=== PATIENT | male | born 1940 | race Caucasian/White ===

== ENCOUNTER 2020-03-12 13:36 | Outpatient (REF) | payer MEDICARE, OTHER, SELFPAY ==
--- NOTE | 2020-03-12 | MR_ITS ---
EXAMINATION: MR LUMBAR SPINE WITHOUT CONTRAST CLINICAL INFORMATION: Spinal stenosis. COMPARISON: MR scan of the lumbar spine 08/30/2017. TECHNIQUE: MRI of the lumbar spine was obtained using routine sequences without contrast. FINDINGS: VERTEBRAL BODIES AND PARASPINAL STRUCTURES: The study redemonstrates the mild levoscoliosis in the lower lumbar spine. There is a grade 1 anterolisthesis of L5 on S1, which appears similar compared to prior imaging. The study also redemonstrates the retrolistheses of L2 on L3, L3 on L4 and L4 on L5. There is multilevel narrowing of intervertebral disc height, most severe in the concavity of the scoliosis on the right at L2-L3, L3-L4 and L4-L5. There are multilevel degenerative endplate contour changes. On the current study, there is now relatively extensive edematous signal in the bodies of L1 and L2 centrally and toward the left, new compared to prior imaging. There has been marked interval decrease in the intervertebral disc height at this level. There is no discrete paravertebral fluid collection, but there is increased signal within the left psoas muscle, consistent with inflammatory changes. The edematous endplate signal changes previously noted at L3-L4 have resolved. Vertebral body heights are maintained. No fractures are demonstrated. Marrow signal is slightly heterogenous. There is a right-sided renal cyst. There are multiple retroperitoneal lymph nodes bilaterally. CONUS MEDULLARIS AND CAUDA EQUINA: Normal, terminating at the level of T12-L1. The lower thoracic spinal cord appears normal. The cauda equina nerve roots and filum terminale appear normal. SPINAL LEVELS: L1-L2: There is moderate bilateral facet arthropathy. There is a small posterior disc protrusion extending into the left neural foramen now with impingement on the exiting left L1 nerve root, which is a new finding compared to prior imaging. There is narrowing of the bilateral subarticular recesses, and there is mild central stenosis. L2-L3: There is moderate bilateral facet arthropathy. There is a posterior disc protrusion extending into the neural foramina bilaterally, more prominent on the left and there is impingement on the exiting left L2 nerve root, similar compared to prior imaging. There is narrowing of the bilateral subarticular recesses with impingement on the traversing L3 nerve roots bilaterally. There is moderate central stenosis. L3-L4: There is severe bilateral facet arthropathy with ligamenta flava hypertrophy and a left facet joint effusion. There is a posterior disc protrusion extending into the neural foramina bilaterally, markedly more prominent on the right with mass effect on the exiting right L3 nerve root. There is also narrowing of the right subarticular recess with impingement on the traversing right L4 nerve root. There is moderate central stenosis. L4-L5: There is moderate bilateral facet arthropathy. There is a posterior disc protrusion extending into the right greater than left neural foramina. There is marked narrowing of the right neural foramen with impingement on the exiting right L4 nerve root. There is narrowing of the left greater than right subarticular recesses with impingement on the traversing L5 nerve roots. There is moderate central stenosis. L5-S1: There is severe bilateral facet arthropathy, which is worse on the right. There is unroofing of the disc as a result of the anterolisthesis. There are bilateral foraminal disc protrusions with impingement on the exiting L5 nerve roots bilaterally, slightly more prominently on the right compared to prior imaging. There is marked narrowing of the subarticular recesses, and there is moderate to severe central stenosis. MR/MR lumbar spine wo con IMPRESSION: 1. On the current study there are extensive edematous signal changes in the bodies of L1 and L2 with degenerative endplate contour changes. Edematous signal is noted in the left psoas muscle at this level. The previously demonstrated edematous signal at L3-L4 has resolved. 2. 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 There is a levoscoliosis. There is severe narrowing of the right neural foramina at L3-L4, L4-L5 and L5-S1 with impingement on the exiting L3, L4 and L5 nerve roots at these levels. In addition, there is marked narrowing of the left neural foramen at L5-S1 with impingement on the exiting left L5 nerve root. 3. At L1-L2 there is a small posterior disc protrusion extending into the left neural foramen, with impingement on the exiting left L1 nerve root which is new. There is mild central stenosis. 4. There is multilevel facet arthropathy, and there is central stenosis at L3-L4, L4-L5 and L5-S1.
== END 2020-03-12 13:37 | disposition home or self-care (01) ==
LOC: HO.MRI 13:36
PROVIDERS: PCP Internal Medicine; Visit Provider Internal Medicine
DX: M48.07 Spinal stenosis, lumbosacral region (principal)
CPT/HCPCS: 72148

== ENCOUNTER → 2020-07-24 08:25 | Outpatient (BNV) | payer MEDICARE, OTHER, SELFPAY | PROVIDERS: PCP Internal Medicine; Visit Provider Internal Medicine | DX: C85.80 Other specified types of non-Hodgkin lymphoma, unspecified site (principal); D63.1 Anemia in chronic kidney disease | CPT/HCPCS: 99213; 99214; G2211 ==

== ENCOUNTER 2020-10-09 11:47 | Outpatient (REF) | payer MEDICARE, OTHER, SELFPAY ==
[2020-10-09 13:52] LABS: Creatinine Urine 92.36 mg/dL; Total Protein Urine Random 157 mg/dL (<12)
[2020-10-09 13:58] LABS: Glucose Urine UA NEG (NEG); Leukocyte Esterase Urine NEG (NEG); Nitrite Urine NEG (NEG); Specific Gravity - Urine 1.015 (1.005-1.025); Urine Blood NEG (NEG); Urine Ketones NEG (NEG); Urine Protein 2+ MG/DL (NEG-TRACE)
[2020-10-09 14:01] LABS: Appearance Urine CLEAR; Color Urine YELLOW
[2020-10-09 14:02] LABS: Alanine Aminotransferase 16 U/L (0-40); Albumin Level 3.7 g/dL (3.5-5.0); Alkaline Phosphatase 79 U/L (39-117); Anion Gap 16 (12-20); Aspartate Amino Transferase 16 U/L (5-37); Bilirubin Total 0.7 mg/dL (0.0-1.0); Blood Urea Nitrogen 21 mg/dL (9-16); Calcium 9.4 mg/dL (8.4-10.2); Carbon Dioxide 24 mmol/L (22-29); Chloride 99 mmol/L (96-108); Cholesterol 196 mg/dL; Estimated Glomerular Filt Rate 60; Glucose Random 87 mg/dL (60-115); HDL Cholesterol 63 mg/dL; LDL Cholesterol Calculated 114 mg/dl; Potassium 5.5 mmol/L (3.3-5.1); Sodium 133 mmol/L (135-145); Total Protein 6.7 g/dL (6.5-8.0); Triglycerides 97 mg/dL
[2020-10-09 14:03] LABS: Albumin Level 3.8 g/dL (3.5-5.0); Anion Gap 15 (12-20); Blood Urea Nitrogen 20 mg/dL (9-16); Calcium 9.4 mg/dL (8.4-10.2); Carbon Dioxide 24 mmol/L (22-29); Chloride 99 mmol/L (96-108); Estimated Glomerular Filt Rate > 60; Potassium 5.3 mmol/L (3.3-5.1); Sodium 133 mmol/L (135-145)
[2020-10-09 14:17] LABS: RBC Urine 0 /HPF (0); WBC Urine 0 /HPF (0-4)
[2020-10-09 14:59] LABS: Renal w Reflex Lab Use Only Order verified
[2020-10-16 15:42] LABS: IgA 230 mg/dL (70-320); IgG 889 mg/dL (600-1540); IgM 738 mg/dL (50-300)
== END 2020-10-09 11:48 | disposition home or self-care (01) ==
LOC: HO.10HDL 11:47
PROVIDERS: PCP Internal Medicine; Visit Provider Internal Medicine Nephrology
DX: I13.0 Hypertensive heart and chronic kidney disease with heart failure and stage 1 through stage 4 chronic kidney disease, or unspecified chronic kidney disease (principal); N18.1 Chronic kidney disease, stage 1; I50.9 Heart failure, unspecified; R80.9 Proteinuria, unspecified; E87.1 Hypo-osmolality and hyponatremia; E78.00 Pure hypercholesterolemia, unspecified
CPT/HCPCS: 36415; 80051; 80053; 80061; 81001; 81003; 82040; 82310; 82565; 82784; 84100; 84156; 84520; 86334; 86335

== ENCOUNTER 2020-10-22 08:32 | Outpatient (REF) | payer MEDICARE, OTHER, SELFPAY ==
[2020-10-22 09:46] LABS: Potassium 5.3 mmol/L (3.3-5.1)
== END 2020-10-22 08:33 | disposition home or self-care (01) ==
LOC: HO.10HDL 08:32
PROVIDERS: Visit Provider Internal Medicine
DX: E87.5 Hyperkalemia (principal)
CPT/HCPCS: 36415; 84132

== ENCOUNTER 2020-11-16 02:45 | Inpatient (IN) | payer MEDICARE, OTHER, SELFPAY ==
[2020-11-16] VITALS (10 sets, daily range): BP systolic 137–162; BP diastolic 63–130; PULSE 67–115; RESP 17–28; TEMP 36.3–37.1; O2SAT 91–100; BMI 22.0
--- NOTE | ~2020-11-16 | XR_ITS ---
EXAMINATION: XR CHEST CLINICAL INFORMATION: Shortness of breath COMPARISON: 11/20/2020 TECHNIQUE: Frontal view of the chest was obtained. FINDINGS: There is persistent bibasilar opacity, right greater than left; appearance on the left has slightly worsened from prior. Small right and trace pleural effusion noted. No evidence of pneumothorax. The cardiomediastinal silhouette is stable. No acute osseous findings are seen. XR/XR chest 1V IMPRESSION: Bibasilar opacities with associated small pleural effusions; appearance on the left has slightly worsened from prior.
--- NOTE | ~2020-11-16 | XR_ITS ---
EXAMINATION: XR CHEST CLINICAL INFORMATION: Shortness of breath COMPARISON: 11/14/2007. Abdominal CT from today. TECHNIQUE: Frontal view of the chest was obtained. FINDINGS: Cardiac leads overlie the chest. Elevated right hemidiaphragm. There is no new opacity in the right middle lobe as seen on CT. No edema or effusion. No pneumothorax. The cardiomediastinal silhouette is normal in size with a calcified aorta. Dilated bowel noted in the upper abdomen. XR/XR chest 1V IMPRESSION: Known right middle lobe airspace opacity. This could represent atelectasis or pneumonia, better seen on the prior CT.
--- NOTE | ~2020-11-16 | XR_ITS ---
EXAMINATION: XR chest 1V CLINICAL INFORMATION: Reason for Exam check NGT placement COMPARISON: Prior chest x-ray same day earlier TECHNIQUE: XR chest 1V Tubes and lines: Gastric tube passing below the diaphragm into the stomach Lungs and pleura: Opacification at right lung base likely infiltrate and/or atelectasis on resolved. Heart and mediastinum: The mediastinum is within normal limits.. Bones/soft tissue: Dilated bowel loops below the diaphragm unchanged. XR/XR chest 1V IMPRESSION: Gastric tube has been adjusted now properly passing below the diaphragm into the stomach. Exam otherwise unchanged, infiltrates/atelectasis at right lung base. Dilated bowel loops under the diaphragm.
--- NOTE | ~2020-11-16 | CT_ITS ---
EXAMINATION: CT ABDOMEN AND PELVIS WITHOUT CONTRAST CLINICAL INFORMATION: Follow-up small bowel obstruction COMPARISON: Previous CT of the abdomen and pelvis 11/16/2020 TECHNIQUE: Multidetector volumetric imaging was performed from the superior aspect of the liver through the pubic symphysis. Sagittal and coronal reformatted images were obtained on the technologist's workstation. This CT examination was performed using dose optimization techniques as appropriate, variously including the following: *Automated exposure control *Adjustment of mA and/or kV according to patient size (this includes techniques or standardized protocols for targeted exams where dose is matched to indication/reason for exam; i.e. extremities or head) *Use of iterative reconstruction technique DLP: 512 mGy-cm FINDINGS: LUNG BASES: There is right middle and right lower lobe dense consolidation with air bronchograms probably representing pneumonia. There is a small right pleural effusion. This is similar to previous exam. The left lung base is clear. The heart is enlarged. There is coronary artery calcification. LIVER, GALLBLADDER, AND BILIARY TREE: The liver is normal in size, shape, and attenuation. No focal hepatic lesion or biliary ductal dilatation is present. The gallbladder is unremarkable with no evidence of radiopaque gallstones, gallbladder wall thickening, or obvious pericholecystic inflammatory changes. PANCREAS: Unremarkable. SPLEEN: Unremarkable. ADRENAL GLANDS: Unremarkable. KIDNEYS AND URETERS: There is bilateral renal cysts that are unchanged. No workup is indicated. BLADDER: Not optimally distended. The bladder wall may be thickened. GASTROINTESTINAL TRACT: There is still marked abnormal circumferential wall thickening of the distal ileum and cecum. Again, appearance is concerning for possible lymphoma. The more proximal small bowel is still appears fluid-filled and dilated but less so than seen on 11/16/2020 exam. There is a new nasogastric tube seen in the stomach. ABDOMINAL WALL: There is a small umbilical hernia containing fat. There is a small subxiphoid 4. Xiphoid hernia containing fat. LYMPH NODES: There is a right lower quadrant pericolic and mesenteric lymph nodes that are upper normal in size measuring 1 cm. There are retroperitoneal lymph nodes in the abdomen and pelvis that are upper normal in size during 1 cm. There is no ascites. VASCULAR: There is evidence of severe atherosclerotic disease. PELVIC VISCERA: The prostate gland is enlarged and measures 4 x 5 cm in AP and transverse dimension. OSSEOUS STRUCTURES: There is scoliosis of the spine and degenerative changes. There are degenerative changes at the hip joints. CT/CT abdomen pelvis wo con IMPRESSION: Persistent circumferential wall thickening of the distal ileum and proximal cecum again concerning for a mass, particularly lymphoma. There are dilated fluid-filled loops of small bowel proximal to this region. Small bowel appears slightly less dilated than seen on 11/18/2020 exam. New nasogastric tube in the stomach. Enlarged pericolic and small bowel mesentery and retroperitoneal lymph nodes that appear unchanged. Large right middle and right lower lobe pneumonia and small right pleural effusion similar to previous exams. Bilateral renal cysts.
--- NOTE | ~2020-11-16 | CT_ITS ---
EXAMINATION: CT ABDOMEN AND PELVIS WITHOUT CONTRAST CLINICAL INFORMATION: Diffuse abdominal pain. Nausea and vomiting. COMPARISON: 09/14/2017 TECHNIQUE: Multidetector volumetric imaging was performed from the superior aspect of the liver through the pubic symphysis. Sagittal and coronal reformatted images were obtained on the technologist's workstation. This CT examination was performed using dose optimization techniques as appropriate, variously including the following: *Automated exposure control *Adjustment of mA and/or kV according to patient size (this includes techniques or standardized protocols for targeted exams where dose is matched to indication/reason for exam; i.e. extremities or head) *Use of iterative reconstruction technique DLP: 464 mGy-cm FINDINGS: LUNG BASES: Multifocal consolidative appearance in the right middle lobe. Septal thickening. No pleural effusion. Coronary artery calcifications. LIVER, GALLBLADDER, AND BILIARY TREE: The liver is normal in size, shape, and attenuation. No focal hepatic lesion or biliary ductal dilatation is present. The gallbladder is unremarkable with no evidence of radiopaque gallstones, gallbladder wall thickening, or obvious pericholecystic inflammatory changes. PANCREAS: Unremarkable. SPLEEN: Unremarkable. ADRENAL GLANDS: Unremarkable. KIDNEYS AND URETERS: The kidneys are normal in size, shape, and attenuation. No hydronephrosis, hydroureter, or calculi seen. No perinephric stranding. Simple renal cysts are seen in both kidneys. No follow-up imaging recommended. BLADDER: Unremarkable. GASTROINTESTINAL TRACT: The stomach is unremarkable. The proximal small bowel is decompressed, with eventual appearance of dilated fluid-filled small bowel with air-fluid levels. This remains to the level of the terminal ileum where there is prominent wall thickening focally in the region of the terminal ileum/ileocecal valve. There is circumferential at this level with more irregular appearing more proximally in the distal ileum. Adjacent prominent lymph nodes are noted. Of note, on the study from 2018, there was significant wall thickening also present at that time. Scattered colonic diverticulosis without diverticulitis. There is minimal gas and stool throughout the colon. ABDOMINAL WALL: No significant hernia is appreciated. LYMPH NODES: Multiple somewhat prominent retroperitoneal lymph nodes are again seen, similar to prior. Prominent nodes in the right lower quadrant are increased from prior. Prominent nodes along the iliac chains also again noted. VASCULAR: Normal caliber aorta with moderate atherosclerotic calcification throughout. PELVIC VISCERA: Prominent prostate. The seminal vesicles are unremarkable. Trace pelvic fluid. OSSEOUS STRUCTURES: No acute or suspicious osseous abnormality. Degenerative changes throughout the spine. CT/CT abdomen pelvis wo con IMPRESSION: Dilated small bowel with air-fluid levels, extending to the level of the terminal ileum. There is prominent wall thickening again noted, as seen on previous imaging. Neoplasm can have this appearance, particularly lymphoma. This is likely partially obstructive given the overall appearance on the study. Prominent adjacent right lower quadrant lymph nodes are seen, increased from prior. Persistent somewhat prominent retroperitoneal lymph nodes. Right middle lobe consolidation. This is concerning for pneumonia. Aspiration possible.
--- NOTE | ~2020-11-16 | XR_ITS ---
EXAMINATION: XR CHEST CLINICAL INFORMATION: NG tube placement COMPARISON: Abdomen CT and prior chest radiograph from 11/16/2020. TECHNIQUE: Frontal view of the chest was obtained. FINDINGS: Lungs are hypoinflated and right diaphragm mildly elevated. There is airspace disease of the right middle lobe. No evidence of pleural effusion or pneumothorax. The NG tube courses to the right of midline and projects over the right lower lobe. No pneumomediastinum. Cardiac silhouette is normal in size. The visualized bones are intact. The dilated small bowel loops are seen within the abdomen. No pneumoperitoneum. XR/XR chest 1V IMPRESSION: * The tip of the NG tube overlies the right lower lobe. Recommend repositioning. * There is consolidation of the right middle lobe. * Persistently dilated small bowel loops are observed within the abdomen. The critical test result was discussed with Dr. Gayatri Thompson at 12:18 PM on 11/16/2020 and it was ascertained that the content and the importance of the findings was understood at the time of the direct communication.
--- NOTE | ~2020-11-16 | XR_ITS ---
EXAMINATION: XR CHEST CLINICAL INFORMATION: Follow-up aspiration. COMPARISON: Chest x-ray 11/16/2020 TECHNIQUE: Frontal view of the chest was obtained. FINDINGS: There is elevation of right hemidiaphragm with underlying atelectasis. Visualized right upper lobe and the left lung remains expanded and clear. Heart size and pulmonary vascularity is normal. Enteric tube has been removed. No gross bony abnormality. XR/XR chest 1V IMPRESSION: Enteric tube has been removed. There is elevated right hemidiaphragm with underlying atelectasis..
[2020-11-16 03:15] LABS: Hematocrit 37.2 % (42-52); Hemoglobin 12.8 g/dl (14.0-18.0); Mean Corpuscular HGB Conc 34.4 g/dl (31.0-36.0); Mean Corpuscular Hemoglobin 31.6 pg (27.0-33.0); Mean Corpuscular Volume 91.9 fL (80-98); Mean Platelet Volume 9.4 fL (9.4-12.4); Platelet Count 317 X10*3/uL (160-400); Red Blood Count 4.05 X10*6/uL (4.60-5.80); Red Cell Distribution Width 12.8 % (11.0-16.0)
[2020-11-16] MEDS: 0.9 % Sodium Chloride 1,000 ML 999 ML IV ×3 (03:16→06:07)
--- NOTE | 2020-11-16 03:25 | PC.NURSE ---
18G IV access established in right forearm by Karena Cota RN. Labs drawn and sent for analysis, including lactic acid and blood cultures x2 due to meeting sepsis criteria (tachycardia, chills, tachypnea, abdominal pain, vomiting). Abdomen distention noted. Reports last bowel movement was on Thursday November 12, 2020. Abdominal pain acutely worse today. Tried to take imodium yesterday, but it didn't work . Pt reports increased stressors at home due to taking care of his who has had 2 strokes. Pt is otherwise independently and compliant with medications and regular physicals. aware of patient meeting sepsis criteria. to evaluate patient shortly. Will continue to monitor. NS 1 liter infusing at this time.
--- NOTE | 2020-11-16 03:32 | ED_ITS ---
HPI - Abdominal Pain General Chief Complaint: Abdominal Pain Stated Complaint: Abd Pain Time Seen by Provider: 11/16/20 03:24 History of Present Illness HPI narrative: Patient 80-year-old male with no significant past medical history. No abdominal surgery in the past. Presents today with having abdominal pain nausea vomiting. Unable to tolerate good amount of fluid. No bowel movement not passing gas since Wednesday. No coughing or congestion or upper respiratory symptoms. Patient had his coronavirus vaccine back in June. No chest pain or shortness of breath no diaphoresis. No radiations of pain. Patient feels bloated. Related Data Home Medications Medication Instructions Recorded Confirmed atenolol 1 tab PO DAILY 07/24/20 07/24/20 benazepril 1 tab PO DAILY 07/24/20 07/24/20 clonidine HCl 1 tab PO BID 07/24/20 07/24/20 levothyroxine 1 tab PO DAILY 07/24/20 07/24/20 nifedipine 2 tab PO DAILY 07/24/20 07/24/20 omeprazole 1 cap PO DAILY 07/24/20 07/24/20 Allergies Allergy/AdvReac Type Severity Reaction Status Date / Time No Known Allergies Allergy Mild NONE Verified 11/16/20 02:59 Review of Systems Review of Systems Positive nausea, vomiting No BM No chest pain or shortness of breath No diaphoresis Yes all other systems are reviewed and are negative Physical Exam Vital Signs: Vital Signs: Last Vital Signs Temp 98.4 F 11/16/20 02:54 Pulse 103 H 11/16/20 02:54 Resp 28 H 11/16/20 02:54 BP 158/78 H 11/16/20 02:54 Pulse Ox 95 11/16/20 02:54 Body Mass Index 22.0 Appearance: Alert. Oriented X3. No acute distress. Eyes: Pupils equal, round and reactive to light. ENT: Pharynx normal. Neck: Normal inspection. Neck supple. No lymph nodes noted. No crepitus CVS: Normal heart rate and rhythm. Pulses normal. Normal S1 and S2 Respiratory: No respiratory distress. Breath sounds normal. No Wheezing. No rales Abdomen: Distended abdomen. No rigidity. No distention. good BS x4 Skin: Skin warm and dry. Normal skin color. Normal skin turgor. Extremities: No lower extremity edema. Neurovascular intact to all extremities. No Lacerations. No Rash Neuro: Oriented X 3. No motor deficit. No sensory deficit. Moving all extermities. No slurred speech MDM - Abdominal Pain MDM Narrative Medical decision making narrative: Patient's labs showed an extremely low white count. Elevated BUN and creatinine consistent with having pre renal insufficiency. Patient given IV fluid here in the emergency department. Lactate was 1.9 no evidence for severe sepsis. Patient however does have a infiltrate in his right middle lobe. Question pneumonia. We will go ahead and give antibiotics. Will monitor very carefully. CT scan of the abdomen show partial blockage. There is no evidence for a large mass. Although lymphoma cannot be ruled out. Will require further evaluation. Patient's case discussed with the hospitalist team. Will admit patient for further evaluate. Will give additional IV fluids. Chest x-ray is pending to further evaluate the infiltrate. Patient is to be admitted. Currently in guarded condition. Differential Diagnosis Differential diagnosis: Likely abdominal pain Medical Records Attestation: I reviewed the patient's medical records. Lab Data Attestation: I reviewed the patient's lab results. Result diagrams: 11/16/20 03:10 11/16/20 03:10 Labs: Lab Results 11/16/20 11/16/20 11/16/20 Range/Units 03:10 03:10 03:10 WBC 2.0 L (4.8-10.8) X10*3/uL RBC 4.05 L (4.60-5.80) X10*6/uL Hgb 12.8 L (14.0-18.0) g/dl Hct 37.2 L (42-52) % MCV 91.9 (80-98) fL MCH 31.6 (27.0-33.0) pg MCHC 34.4 (31.0-36.0) g/dl RDW 12.8 (11.0-16.0) % Plt Count 317 (160-400) X10*3/uL MPV 9.4 (9.4-12.4) fL Immature Gran % (Auto) Cancelled Neut % (Auto) Cancelled Lymph % (Auto) Cancelled [place] % (Auto) Cancelled Eos % (Auto) Cancelled Baso % (Auto) Cancelled Lymph # (Auto) Cancelled [place] # (Auto) Cancelled Eos # (Auto) Cancelled Baso # (Auto) Cancelled Abs Immat Gran (auto) Cancelled Absolute Neuts (auto) Cancelled Absolute Nucleated RBC 0.000 (0.0-0.012) X10*3/uL Nucleated RBC % (auto) 0.0 (0.0-0.2) /100WBC Neutrophils % (Manual) 45 (45-73) % Band Neutrophils % 44 H (3-5) % Lymphocytes % (Manual) 7 L (20-40) % Atypical Lymphs % (Man) 2 (0-6) % Monocytes % (Manual) 2 (2-11) % Abs Neuts (Manual) 1.8 L (2.2-7.9) X10*3/uL Lymphocytes # (Manual) 0.1 L (0.6-4.8) X10*3/uL Toxic Vacuolation PRESENT Platelet Estimate NORMAL (NORMAL) Large Platelets PRESENT Plt Morphology Comment NOTED RBC Morphology NORMAL Sodium 135 (135-145) mmol/L Potassium 4.5 (3.3-5.1) mmol/L Chloride 102 (96-108) mmol/L Carbon Dioxide 14 L (22-29) mmol/L Anion Gap 24 H (12-20) BUN 77 H D (9-16) mg/dL Creatinine 3.03 H (0.5-1.4) mg/dL Estim Creat Clear Calc 17.5 Estimated GFR 20 Random Glucose 184 H D (60-115) mg/dL Lactic Acid 1.9 (0.5-2.0) mmol/L Calcium 8.9 (8.4-10.2) mg/dL Total Bilirubin 1.2 H (0.0-1.0) mg/dL Direct Bilirubin 0.5 (0.0-0.5) mg/dL AST 19 (5-37) U/L ALT 13 (0-40) U/L Alkaline Phosphatase 80 (39-117) U/L Total Protein 7.1 (6.5-8.0) g/dL Albumin 3.9 (3.5-5.0) g/dL Lipase 11 (8-78) U/L Urine Color Urine Appearance Urine pH (5.0-8.0) Ur Specific [place] (1.005-1.025) Urine Protein (NEG-TRACE) MG/DL Urine Glucose (UA) (NEG) MG/DL Urine Ketones (NEG) MG/DL Urine Blood (NEG) Urine Nitrite (NEG) Ur Leukocyte Esterase (NEG) Urine RBC (0) /HPF Urine WBC (0-4) /HPF Ur Squamous Epith Cells /LPF Ur Renal Epithelial Cell /LPF Urine Bacteria /LPF Hyaline Casts /LPF Urine Mucus /LPF COVID-19 ([facility]) (Negative) COVID-19 Clin Com 11/16/20 11/16/20 Range/Units 03:21 04:31 WBC (4.8-10.8) X10*3/uL RBC (4.60-5.80) X10*6/uL Hgb (14.0-18.0) g/dl Hct (42-52) % MCV (80-98) fL MCH (27.0-33.0) pg MCHC (31.0-36.0) g/dl RDW (11.0-16.0) % Plt Count (160-400) X10*3/uL MPV (9.4-12.4) fL Immature Gran % (Auto) Neut % (Auto) Lymph % (Auto) [place] % (Auto) Eos % (Auto) Baso % (Auto) Lymph # (Auto) [place] # (Auto) Eos # (Auto) Baso # (Auto) Abs Immat Gran (auto) Absolute Neuts (auto) Absolute Nucleated RBC (0.0-0.012) X10*3/uL Nucleated RBC % (auto) (0.0-0.2) /100WBC Neutrophils % (Manual) (45-73) % Band Neutrophils % (3-5) % Lymphocytes % (Manual) (20-40) % Atypical Lymphs % (Man) (0-6) % Monocytes % (Manual) (2-11) % Abs Neuts (Manual) (2.2-7.9) X10*3/uL Lymphocytes # (Manual) (0.6-4.8) X10*3/uL Toxic Vacuolation Platelet Estimate (NORMAL) Large Platelets Plt Morphology Comment RBC Morphology Sodium (135-145) mmol/L Potassium (3.3-5.1) mmol/L Chloride (96-108) mmol/L Carbon Dioxide (22-29) mmol/L Anion Gap (12-20) BUN (9-16) mg/dL Creatinine (0.5-1.4) mg/dL Estim Creat Clear Calc Estimated GFR Random Glucose (60-115) mg/dL Lactic Acid (0.5-2.0) mmol/L Calcium (8.4-10.2) mg/dL Total Bilirubin (0.0-1.0) mg/dL Direct Bilirubin (0.0-0.5) mg/dL AST (5-37) U/L ALT (0-40) U/L Alkaline Phosphatase (39-117) U/L Total Protein (6.5-8.0) g/dL Albumin (3.5-5.0) g/dL Lipase (8-78) U/L Urine Color YELLOW Urine Appearance CLEAR Urine pH 6.0 (5.0-8.0) Ur Specific [place] 1.020 (1.005-1.025) Urine Protein 2+ H (NEG-TRACE) MG/DL Urine Glucose (UA) NEG (NEG) MG/DL Urine Ketones NEG (NEG) MG/DL Urine Blood NEG (NEG) Urine Nitrite NEG (NEG) Ur Leukocyte Esterase NEG (NEG) Urine RBC 0 (0) /HPF Urine WBC 0-2 (0-4) /HPF Ur Squamous Epith Cells TRACE /LPF Ur Renal Epithelial Cell 1+ /LPF Urine Bacteria NONE /LPF Hyaline Casts 0-2 /LPF Urine Mucus TRACE /LPF COVID-19 ([facility]) Negative (Negative) COVID-19 Clin Com See Note ECG Data Attestation: I personally reviewed and interpreted this ECG as follows: Critical Care Time Critical Care Time Critical Care Time: Yes Total Critical Care Time: 40 Attestation: I have personally provided 40 minutes of critical care time exclusive of time spent on separately billable procedures. Time includes review of lab data, radiology results, discussion with consultants, and monitoring for potential decompensation. Interventions were performed as documented above Discharge Plan Discharge Clinical Impression: Lymphadenopathy, Small bowel obstruction, Dehydration Patient Disposition: Admitted As Inpatient Prescriptions: No Action clonidine HCl 0.1 mg tablet 1 tab PO BID RF: 0 levothyroxine 75 mcg tablet 1 tab PO DAILY RF: 0 nifedipine 60 mg tablet extended release 24hr 2 tab PO DAILY RF: 0 omeprazole 20 mg capsule,delayed release(DR/EC) 1 cap PO DAILY RF: 0 benazepril 40 mg tablet 1 tab PO DAILY RF: 0 atenolol 50 mg tablet 1 tab PO DAILY RF: 0 PMFSH Past Medical History Attestation statement: The following information was validated with the patient. Medical History Arthritis Basal cell carcinoma Hiatal hernia HTN (hypertension) Hypothyroidism Lymphadenopathy [place] Surgical History Hx of biopsy Hx of colonoscopy Hx of tonsillectomy Hx of total knee replacement Family History Family History (Updated 07/24/20 @ 07:43 by Sharon Carter) Father Heart disease Social History Social History (Updated 07/24/20 @ 08:36 by Sharon Carter) Alcohol intake: current Alcohol intake frequency: a few times a week Alcohol type: beer Cigarette Packs Per Day: 0.5 Advance Directives: No Advance Directives Information Provided: Yes
[2020-11-16 03:42] LABS: COVID-19 Test Negative (Negative); IDNOW Serial# 9DD0AD1C
[2020-11-16 03:49] LABS: Lactic Acid 1.9 mmol/L (0.5-2.0)
[2020-11-16 03:57] LABS: Atypical Lymphs Percent Manual 2 % (0-6); Band Neutrophils Percent 44 % (3-5); Lymphocytes Absolute Manual 0.1 X10*3/uL (0.6-4.8); Lymphocytes Percent Manual 7 % (20-40); Monocytes Percent Manual 2 % (2-11); Neutrophils Absolute Manual 1.8 X10*3/uL (2.2-7.9); Neutrophils Percent Manual 45 % (45-73)
[2020-11-16 03:59] LABS: Alanine Aminotransferase 13 U/L (0-40); Albumin Level 3.9 g/dL (3.5-5.0); Alkaline Phosphatase 80 U/L (39-117); Anion Gap 24 (12-20); Aspartate Amino Transferase 19 U/L (5-37); Bilirubin Direct 0.5 mg/dL (0.0-0.5); Bilirubin Total 1.2 mg/dL (0.0-1.0); Blood Urea Nitrogen 77 mg/dL (9-16); Calcium 8.9 mg/dL (8.4-10.2); Carbon Dioxide 14 mmol/L (22-29); Chloride 102 mmol/L (96-108); Creatinine Clr Calc Pharmacy 17.5; Estimated Glomerular Filt Rate 20; Glucose Random 184 mg/dL (60-115); Lipase 11 U/L (8-78); Platelet Estimate NORMAL (NORMAL); Potassium 4.5 mmol/L (3.3-5.1); RBC Morphology NORMAL; Sodium 135 mmol/L (135-145); Total Protein 7.1 g/dL (6.5-8.0)
[2020-11-16 04:00] LABS: Large Platelet PRESENT; Platelet Morphology Comment NOTED; Toxic Vacuolation PRESENT
[2020-11-16] MEDS: HYDROmorphone HCl 0.5 MG/0.5 ML SYRINGE IVPUSH ×5 (04:27→21:49)
[2020-11-16 04:39] LABS: Glucose Urine UA NEG (NEG); Leukocyte Esterase Urine NEG (NEG); Nitrite Urine NEG (NEG); Urine Blood NEG (NEG); Urine Ketones NEG (NEG); Urine Protein 2+ MG/DL (NEG-TRACE)
[2020-11-16 04:40] LABS: Appearance Urine CLEAR; Color Urine YELLOW
[2020-11-16 04:45] LABS: Hyaline Casts Urine 0-2 /LPF; Mucus Urine TRACE /LPF; RBC Urine 0 /HPF (0); Renal Epithelial Cells Urine 1+ /LPF; Squamous Epithelial Cell Urine TRACE /LPF; WBC Urine 0-2 /HPF (0-4)
--- NOTE | 2020-11-16 05:31 | PC.NURSE ---
Plan for admission (per ), pending xray results. Multiple reasons for admission including lymphoma, partial obstruction (bowel), and ?pneumonia. Awaiting xray results. spoke with over the phone. Medication reconciliation completed.
--- NOTE | 2020-11-16 05:34 | ECG_ITS ---
Test Reason : SOB Blood Pressure : / mmHG Vent. Rate : 118 BPM Atrial Rate : 118 BPM P-R Int : 000 ms QRS Dur : 102 ms QT Int : 338 ms P-R-T Axes : 000 -61 056 degrees QTc Int : 473 ms Normal sinus rhythm with frequent Premature atrial complexes Left axis deviation Septal infarct , age undetermined Abnormal ECG When compared with ECG of 06-JUN-2009 13:24, Frequent PACs now seen. Referred By: Kiesha Babin Electronically Signed By:PRUDENCIO CAVANAUGH
--- NOTE | 2020-11-16 05:35 | P.HPHOSP_ITS ---
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 Patient reports that last Wednesday had abdominal discomfort and diarrhea and since then he has not been had any episodes of bowel movement and has not been passing gas. Complains of abdominal discomfort. Yesterday he had crackers and Gatorade; today he had like 3 episodes of nausea and vomiting did not eat or drink anything today. Denies any blood in the vomitus. Reports generalized weakness. Complains of pain in the right lateral chest wall, worsens with deep inspiration. Denies any blood in the vomitus. Denies any chest pain palpitations lightheadedness or dizziness. Denies any urinary symptoms. Denies any cough or sputum production. Review of all other systems is negative except mentioned above ER course: Per ER team patient noted to have mild diffuse abdominal tenderness; CT scan showed dilated small bowel loops near the terminal ileum-causing partial SBO and findings concerning for neoplasm likely lymphoma; lactate was within the normal limits, lab showed elevated creatinine and low bicarb. Given IV fluids. CT scan also concern for pneumonia. Admitted for further management. [facility] [place] Medical History (Updated 11/27/20 @ 12:53 by Gayatri Thompson NP) Arthritis Basal cell carcinoma Hiatal hernia HTN (hypertension) Hypothyroidism Lymphadenopathy Rosacea Family History Father Heart disease Surgical History Hx of biopsy Hx of colonoscopy Hx of tonsillectomy Hx of total knee replacement Social History Household Members: Spouse Housing: House Alcohol intake: current Alcohol intake frequency: holidays/special occasions only Alcohol type: beer Patient Tobacco Use Status: Never used Tobacco Cigarette Packs Per Day: 0.5 service: Yes Current occupational status: retired Meds Allergies Allergy/AdvReac Type Severity Reaction Status Date / Time No Known Allergies Allergy Mild NONE Verified 11/16/20 02:59 Active Medications: Current Medications Generic Name Dose Route Start Last Admin Trade Name Freq PRN Reason Stop Dose Admin Acetaminophen 650 mg 11/16/20 05:21 Acetaminophen Supp 650 Mg Supp.Rect ND Q6H PRN Pain, Mild (Pain Scale 1-3) Heparin Sodium (Porcine) 5,000 unit 11/16/20 05:30 Heparin Sodium,Porcine 5,000 Unit/Ml Vial SUBCUT Q8H ROCKY Sodium Chloride 1,000 mls @ 999 mls/hr 11/16/20 05:30 Ns IV 11/16/20 06:30 .Q1H1M ROCKY Dextrose/Sodium Chloride 1,000 mls @ 100 mls/hr 11/16/20 05:30 D51/2ns IVCONT .Q10H ROCKY Ceftriaxone Sodium 1 gm/ 50 mls @ 100 mls/hr 11/16/20 05:30 Sodium Chloride IV Q24H ROCKY Azithromycin 500 mg/ Sodium 250 mls @ 125 mls/hr 11/16/20 05:30 Chloride IV Q24H ROCKY Metronidazole 500 mg in 100 mls @ 100 mls/hr 11/16/20 05:30 Flagyl IV Q8H [facility] Labetalol HCl 10 mg 11/16/20 05:21 Labetalol Hcl 100 Mg/20 Ml Vial IVPUSH Q4H PRN BP>160/90 Morphine Sulfate 1 mg 11/16/20 05:21 Morphine Sulfate 4 Mg/Ml Cartridge IVPUSH Q4H PRN Pain, Severe (Pain Scale 7-10) Pantoprazole Sodium 40 mg 11/16/20 06:30 Pantoprazole Sodium 40 Mg/10 Ml Vial IVPUSH DAILY@0630 [facility] Sodium Chloride 3 ml 11/16/20 08:00 0.9 % Sodium Chloride Flush 3 [facility] Medications Medication Instructions Recorded Confirmed Last Taken Type atenolol 1 tab PO DAILY 07/24/20 11/16/20 Unknown History benazepril 1 tab PO DAILY 07/24/20 11/16/20 Unknown History clonidine HCl 1 tab PO BID 07/24/20 11/16/20 Unknown History levothyroxine 1 tab PO DAILY 07/24/20 11/16/20 Unknown History nifedipine 2 tab PO DAILY 07/24/20 11/16/20 Unknown History omeprazole 1 cap PO DAILY 07/24/20 11/16/20 Unknown History Physical Exam Vital Signs and Narrative: Vital Signs: Last Vital Signs Temp 98.4 F 11/16/20 02:54 Pulse 103 H 11/16/20 02:54 Resp 28 H 11/16/20 02:54 BP 158/78 H 11/16/20 02:54 Pulse Ox 95 11/16/20 02:54 Body Mass Index 22.0 Gen: Appears be in no acute distress HEENT: NCAT, Moist mucosa. Pulmonary: Vesicular breath sounds, fair air entry CVS: Normal S1-S2 Abdomen: BS+, Soft, mildly tender diffusely, no guarding no rigidity Extremities: Warm well perfused Neuro: Alert and awake. Results Labs CBC and Chem 7: 11/27/20 14:14 11/27/20 06:11 Labs: Laboratory Results - last 24 hr 11/16/20 11/16/20 11/16/20 03:10 03:10 03:10 MCV 91.9 MCH 31.6 MCHC 34.4 RDW 12.8 Plt Count 317 MPV 9.4 Immature Gran % (Auto) Cancelled Neut % (Auto) Cancelled Lymph % (Auto) Cancelled [place] % (Auto) Cancelled Eos % (Auto) Cancelled Baso % (Auto) Cancelled Lymph # (Auto) Cancelled [place] # (Auto) Cancelled Eos # (Auto) Cancelled Baso # (Auto) Cancelled Abs Immat Gran (auto) Cancelled Absolute Neuts (auto) Cancelled Absolute Nucleated RBC 0.000 Nucleated RBC % (auto) 0.0 Neutrophils % (Manual) 45 Band Neutrophils % 44 H Lymphocytes % (Manual) 7 L Atypical Lymphs % (Man) 2 Monocytes % (Manual) 2 Abs Neuts (Manual) 1.8 L Lymphocytes # (Manual) 0.1 L Toxic Vacuolation PRESENT Platelet Estimate NORMAL Large Platelets PRESENT Plt Morphology Comment NOTED RBC Morphology NORMAL Anion Gap 24 H Estim Creat Clear Calc 17.5 Estimated GFR 20 Random Glucose 184 H D Lactic Acid 1.9 Calcium 8.9 Total Bilirubin 1.2 H Direct Bilirubin 0.5 AST 19 ALT 13 Alkaline Phosphatase 80 Total Protein 7.1 Albumin 3.9 Lipase 11 Urine Color Urine Appearance Urine pH Ur Specific [place] Urine Protein Urine Glucose (UA) Urine Ketones Urine Blood Urine Nitrite Ur Leukocyte Esterase Urine RBC Urine WBC Ur Squamous Epith Cells Ur Renal Epithelial Cell Urine Bacteria Hyaline Casts Urine Mucus COVID-19 ([facility]) COVID-19 Clin Com 11/16/20 11/16/20 03:21 04:31 MCV MCH MCHC RDW Plt Count MPV Immature Gran % (Auto) Neut % (Auto) Lymph % (Auto) [place] % (Auto) Eos % (Auto) Baso % (Auto) Lymph # (Auto) [place] # (Auto) Eos # (Auto) Baso # (Auto) Abs Immat Gran (auto) Absolute Neuts (auto) Absolute Nucleated RBC Nucleated RBC % (auto) Neutrophils % (Manual) Band Neutrophils % Lymphocytes % (Manual) Atypical Lymphs % (Man) Monocytes % (Manual) Abs Neuts (Manual) Lymphocytes # (Manual) Toxic Vacuolation Platelet Estimate Large Platelets Plt Morphology Comment RBC Morphology Anion Gap Estim Creat Clear Calc Estimated GFR Random Glucose Lactic Acid Calcium Total Bilirubin Direct Bilirubin AST ALT Alkaline Phosphatase Total Protein Albumin Lipase Urine Color YELLOW Urine Appearance CLEAR Urine pH 6.0 Ur Specific [place] 1.020 Urine Protein 2+ H Urine Glucose (UA) NEG Urine Ketones NEG Urine Blood NEG Urine Nitrite NEG Ur Leukocyte Esterase NEG Urine RBC 0 Urine WBC 0-2 Ur Squamous Epith Cells TRACE Ur Renal Epithelial Cell 1+ Urine Bacteria NONE Hyaline Casts 0-2 Urine Mucus TRACE COVID-19 ([facility]) Negative COVID-19 Clin Com See Note Imaging Radiologist's Impressions: Impressions Abdomen/Pelvis CT 11/16/20 03:28 IMPRESSION: Dilated small bowel with air-fluid levels, extending to the level of the terminal ileum. There is prominent wall thickening again noted, as seen on previous imaging. Neoplasm can have this appearance, particularly lymphoma. This is likely partially obstructive given the overall appearance on the study. Prominent adjacent right lower quadrant lymph nodes are seen, increased from prior. Persistent somewhat prominent retroperitoneal lymph nodes. Right middle lobe consolidation. This is concerning for pneumonia. Aspiration possible. 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 Noted to have KATHLEEN and partial SBO. KATHLEEN: Likely prerenal. Continue IV fluids. Avoid nephrotoxins. Hold home Star inhibitor. Nephrology consult. Acodosis: Likely in the setting of KATHLEEN; lactate within normal limits. Patient on IV fluids. Partial SBO: Supportive care. IV fluids. Strict NPO. General surgery consult. Abdominal wall thickening: Question neoplasm. Will consult Oncology for further recommendations. Chest wall pain: Atypical in nature. Cycle enzymes. New onset Afib: Echocardiogram; Cardiology consult for further inputs. Pneumonia: Suspected aspiration secondary to vomiting. Continue ceftriaxone, azithromycin, Flagyl. History of hypertension: Patient's home medication atenolol, benazepril, clonidine, nifedipine are on hold given strict NPO. Will give the patient on labetalol IV p.r.n. for high blood pressure. DVT prophylaxis: Subcu heparin Code status: Full code Quality Stroke Does the patient have a stroke diagnosis?: No VTE Prior VTE?: No VTE Risk Level:: Medical - moderate - high VTE Device Contraindication: N/A - Device Ordered VTE Drug Contraindication: N/A - Med Ordered
[2020-11-16] MEDS: Heparin Sodium,Porcine 5,000 UNIT/ML VIAL 5000 UNIT SUBCUT ×3 (06:04→21:48)
[2020-11-16] MEDS: Labetalol HCL 100 MG/20 ML VIAL 10 MG IVPUSH (06:05)
[2020-11-16] MEDS: cefTRIAXone sodium 1 GM in 0.9 % Sodium Chloride 50 ML IV (06:05)
[2020-11-16 06:24] LABS: Troponin-I High Sensitivity 16.3 ng/L (<3.5-35.0)
--- NOTE | 2020-11-16 07:07 | PC.NURSE ---
This RN spoke with patient's daughter with consent (Suzan King) @ [phone] and given updates regarding patient's condition and treatments as requested by the patient. Aware of plan for admission. Suzan plans to visit the patient later today. Pt reports 7 to 8 out of 10 pain level. Medicated with Dilaudid as ordered by hospitalist. Sinus tachycardia on monitor. Will continue to monitor.
--- NOTE | 2020-11-16 07:19 | PC.NURSE ---
RN to RN report given to Tanesha ZAMARRIPA. Preparing for admission to room 358-1.
[2020-11-16 07:51] LABS: Troponin-I High Sensitivity 30.2 ng/L (<3.5-35.0)
[2020-11-16] MEDS: Pantoprazole Sodium 40 MG/10 ML VIAL IVPUSH (07:59)
[2020-11-16] MEDS: Dextrose 5 % and 0.45 % NaCl 1,000 ML 100 ML IVCONT (08:00)
[2020-11-16] MEDS: Azithromycin 500 MG in 0.9 % Sodium Chloride 250 ML 125 MG IV (08:00)
--- NOTE | 2020-11-16 08:45 | PC.NURSE ---
PT TRANSPORTED TO FLOOR BY THIS RN, ROOM WAS NOT SET UP NO IV POLE NO CONNECTION FOR O2 WHEN RN TAKING OVER CARE OF PT IT WAS REPORTED PT WAS ON O2 AND FLUIDS. NURSE TAKING OVER CARE OF THIS PATIENT WAS ELEANOR AND NO ONE I ASKED KNEW WHERE SHE WAS. TIGER TEXT GLENN ALVAREZ FOR CONCERN OF PATIENT HAVING CRACKLES THROUGH OUT AND AN 02 REQUIREMENT OF 3L TO KEEP SATS AT 93%. PROVIDER NOTIFIED THAT PT IS CURRENTLY ON THE FLOOR AND NOT IN THE ED, RM [id number].
[2020-11-16 10:12] LABS: B Type Natriuretic Peptide 425 pg/mL (<100)
[2020-11-16 10:20] LABS: Anion Gap 20 (12-20); Blood Urea Nitrogen 71 mg/dL (9-16); Carbon Dioxide 16 mmol/L (22-29); Chloride 107 mmol/L (96-108); Estimated Glomerular Filt Rate 22; Glucose Random 130 mg/dL (60-115); Potassium 4.7 mmol/L (3.3-5.1); Sodium 138 mmol/L (135-145)
--- NOTE | 2020-11-16 10:32 | P.CONGS_ITS ---
History of Present Illness Consult details Consult date: 11/16/20 Reason for consult: other (Abdominal pain and small-bowel obstruction) Requesting physician: Nolan Butler Narrative: This is an 80-year-old gentleman who was feeling well until about 4 days ago when he developed some abdominal discomfort and then had an episode of loose stool. He reports that he has not moved his bowels or passed flatus since that time. He was able to tolerate his usual breakfast the following morning, but since then has had a diminished appetite. He has been trying to maintain hydration and has been drinking Gatorade. Yesterday, he had moderate to severe abdominal pain and during the night developed nausea and vomiting. He had numerous episodes of emesis and persistent abdominal pain. He then developed shakes and chills. He felt very weak and elected to come to the emergency department for further evaluation. He has not had similar symptoms in the past. His bowels had been moving normally until a few days ago when he had the episod e of loose stool. He does not report weight loss or fever. Since last night, he has been experiencing right-sided chest pain exacerbated by inspiration. He also has developed a cough. Workup in the emergency department included a CT scan of the abdomen and pelvis, which demonstrated: IMPRESSION: Dilated small bowel with air-fluid levels, extending to the level of the terminal ileum. There is prominent wall thickening again noted, as seen on previous imaging. Neoplasm can have this appearance, particularly lymphoma. This is likely partially obstructive given the overall appearance on the study. Prominent adjacent right lower quadrant lymph nodes are seen, increased from prior. Persistent somewhat prominent retroperitoneal lymph nodes. Right middle lobe consolidation. This is concerning for pneumonia. Aspiration possible. Dictated By:Joselito Villela MDSigned By:<Electronically signed by Joselito Villela MD in OV>11/16/20 0459 Laboratory studies demonstrated a white blood count of 2.0 with 45% neutrophils and 44% bands. BUN was 77 and creatinine 3.03. Atrial fibrillation with rapid ventricular response so was noted on admission EKG and cardiology consultation was requested. Review of Systems Constitutional: Constitutional: Reports chills, Denies fever(s), Reports malaise, Reports poor appetite and Reports weakness Cardiovascular: Cardiovascular: Reports chest pain (Acute, right-sided, exacerbated by inspiration), Denies syncope, Denies palpitations and Denies dyspnea Respiratory: Respiratory: Reports cough and Denies dyspnea Genitourinary: Genitourinary: Reports no additional male genitourinary compl aints Musculoskeletal: Musculoskeletal: Reports back pain (Chronic low back) and Reports arthralgias Integumentary/Breasts: Skin/Breast: Denies rash Neurologic: Denies syncope and Reports weakness Endocrine: Endocrine: Denies palpitations Hematologic/Lymphatic: Hematologic/Lymphatic: Denies easy bleeding PMFSH Past Medical History Medical History Arthritis Basal cell carcinoma Hiatal hernia HTN (hypertension) Hypothyroidism Lymphadenopathy Rosacea Family History Family History Father Heart disease Surgical History Surgical History Hx of biopsy Hx of colonoscopy Hx of tonsillectomy Hx of total knee replacement Social History Social History Household Members: Spouse Housing: House Alcohol intake: current Alcohol intake frequency: a few times a week Alcohol type: beer Patient Tobacco Use Status: Never used Tobacco Cigarette Packs Per Day: 0.5 Currently Displaying Signs/Symptoms of Drug Intoxication Withdrawal: No Advance Directives: No Advance Directives Information Provided: Yes Do you have thoughts of harming others: None Do you have a plan to hurt others: No Plan Recently lost weight without trying: Unsure service: Yes Current occupational status: retired Meds Allergies Allergy/AdvReac Type Severity Reaction Status Date / Time No Known Allergies Allergy Mild NONE Verified 11/16/20 02:59 Active Medications: Current Medications Generic Name Dose Route Start Last Admin Trade Name Freq PRN Reason Stop Dose Admin Acetaminophen 650 mg 11/16/20 05:21 Acetaminophen Supp 650 Mg Supp.Rect TN Q6H PRN Pain, Mild (Pain Scale 1-3) Heparin Sodium (Porcine) 5,000 unit 11/16/20 06:00 11/16/20 06:04 Heparin Sodium,Porcine 5,000 Unit/Ml Vial SUBCUT 5,000 unit Q8H ROCKY Administration Hydromorphone HCl 0.5 mg 11/16/20 05:57 11/16/20 06:56 Hydromorphone Hcl 0.5 Mg/0.5 Ml Syringe IVPUSH 0.5 mg Q4H PRN Administration Breakthrough Pain Ceftriaxone Sodium 1 gm/ 50 mls @ 100 mls/hr 11/16/20 05:30 11/16/20 06:35 Sodium Chloride IV Infused Q24H ROCKY Infusion Azithromycin 500 mg/ Sodium 250 mls @ 125 mls/hr 11/16/20 05:30 11/16/20 10:05 Chloride IV Infused Q24H ROCKY Infusion Metronidazole 500 mg in 100 mls @ 100 mls/hr 11/16/20 05:30 11/16/20 10:05 Flagyl IV Not Given Q8H ROCKY Labetalol HCl 10 mg 11/16/20 05:21 11/16/20 06:05 Labetalol Hcl 100 Mg/20 Ml Vial IVPUSH 10 mg Q4H PRN Administration BP>160/90 Pantoprazole Sodium 40 mg 11/16/20 06:30 11/16/20 07:59 Pantoprazole Sodium 40 Mg/10 Ml Vial IVPUSH 40 mg DAILY@0630 [facility] Administration Sodium Chloride 3 ml 11/16/20 08:00 11/16/20 09:30 0.9 % Sodium Chloride Flush 3 Ml Syringe IVFLUSH Not Given QSHIFT [facility] Home Medications Medication Instructions Recorded Confirmed Last Taken Type atenolol 1 tab PO DAILY 07/24/20 11/16/20 Unknown History benazepril 1 tab PO DAILY 07/24/20 11/16/20 Unknown History clonidine HCl 1 tab PO BID 07/24/20 11/16/20 Unknown History levothyroxine 1 tab PO DAILY 07/24/20 11/16/20 Unknown History nifedipine 2 tab PO DAILY 07/24/20 11/16/20 Unknown History omeprazole 1 cap PO DAILY 07/24/20 11/16/20 Unknown History Physical Exam Vital Signs: Vital Signs: Last Vital Signs Temp 98.3 F 11/16/20 08:00 Pulse 97 11/16/20 08:00 Resp 18 11/16/20 08:00 BP 140/71 H 11/16/20 08:00 Pulse Ox 93 11/16/20 08:00 Body Mass Index 22.0 Const: General: healthy appearing and no acute distress Orientation/consciousness: patient oriented x3 HENMT: Head: Yes normocephalic and Yes atraumatic Neck: Neck: Yes trachea midline and Yes supple Chest: Chest palpation & inspection: normal inspection of the chest Resp: Effort & Inspection: normal respiratory effort Auscultation: crackles on the right at the base and in the mid lung aparicio Cardio: Rate: regular rate Rhythm: regular rhythm GI: Other: Active bowel sounds, distended, somewhat firm, mildly tender diffusely, no palpable masses Rectal Exam - Male: Yes deferred Skin: General skin exam: no rashes or lesions noted Neuro: General: patient oriented x3 Extrem: General: Yes normal to inspection Psych: Mental Status: mental status grossly normal Results Labs Result diagrams: 11/16/20 03:10 11/16/20 09:33 Labs: Abnormal lab results 11/16/20 11/16/20 11/16/20 Range/Units 03:10 03:10 04:31 WBC 2.0 L (4.8-10.8) X10*3/uL RBC 4.05 L (4.60-5.80) X10*6/uL Hgb 12.8 L (14.0-18.0) g/dl Hct 37.2 L (42-52) % Band Neutrophils % 44 H (3-5) % Lymphocytes % (Manual) 7 L (20-40) % Abs Neuts (Manual) 1.8 L (2.2-7.9) X10*3/uL Lymphocytes # (Manual) 0.1 L (0.6-4.8) X10*3/uL Carbon Dioxide 14 L (22-29) mmol/L Anion Gap 24 H (12-20) BUN 77 H D (9-16) mg/dL Creatinine 3.03 H (0.5-1.4) mg/dL Random Glucose 184 H D (60-115) mg/dL Calcium (8.4-10.2) mg/dL Total Bilirubin 1.2 H (0.0-1.0) mg/dL B-Natriuretic Peptide (<100) pg/mL Urine Protein 2+ H (NEG-TRACE) MG/DL 11/16/20 11/16/20 Range/Units 09:33 09:33 WBC (4.8-10.8) X10*3/uL RBC (4.60-5.80) X10*6/uL Hgb (14.0-18.0) g/dl Hct (42-52) % Band Neutrophils % (3-5) % Lymphocytes % (Manual) (20-40) % Abs Neuts (Manual) (2.2-7.9) X10*3/uL Lymphocytes # (Manual) (0.6-4.8) X10*3/uL Carbon Dioxide 16 L (22-29) mmol/L Anion Gap (12-20) BUN 71 H (9-16) mg/dL Creatinine 2.79 H (0.5-1.4) mg/dL Random Glucose 130 H (60-115) mg/dL Calcium 8.0 L D (8.4-10.2) mg/dL Total Bilirubin (0.0-1.0) mg/dL B-Natriuretic Peptide 425 H (<100) pg/mL Urine Protein (NEG-TRACE) MG/DL Short CBC 11/16/20 Range/Units 03:10 WBC 2.0 L (4.8-10.8) X10*3/uL Hgb 12.8 L (14.0-18.0) g/dl Hct 37.2 L (42-52) % Plt Count 317 (160-400) X10*3/uL BMP 11/16/20 11/16/20 03:10 09:33 Sodium 135 138 Potassium 4.5 4.7 Chloride 102 107 Carbon Dioxide 14 L 16 L BUN 77 H D 71 H Creatinine 3.03 H 2.79 H Calcium 8.9 8.0 L D Liver Function 11/16/20 Range/Units 03:10 Total Bilirubin 1.2 H (0.0-1.0) mg/dL Direct Bilirubin 0.5 (0.0-0.5) mg/dL AST 19 (5-37) U/L ALT 13 (0-40) U/L Alkaline Phosphatase 80 (39-117) U/L Albumin 3.9 (3.5-5.0) g/dL Urine 11/16/20 Range/Units 04:31 Urine Color YELLOW Urine Appearance CLEAR Urine pH 6.0 (5.0-8.0) Ur Specific [place] 1.020 (1.005-1.025) Urine Protein 2+ H (NEG-TRACE) MG/DL Urine Glucose (UA) NEG (NEG) MG/DL All other labs normal. Assessment and Plan (1) Small bowel obstruction: Status: Acute (2) Dehydration: Status: Acute (3) Acute renal failure: Qualifiers: Acute renal failure type: unspecified Qualified Code(s): N17.9 - Acute kidney failure, unspecified Status: Acute (4) Lymphadenopathy: Status: Chronic 80-year-old male with history of monoclonal gammopathy and lymphadenopathy presenting with small-bowel obstruction secondary to a cecal process with associated dehydration and acute renal injury as well as possible aspiration pneumonia. The cecal process may be inflammatory or neoplastic. He has been started on Zosyn. NG tube has been placed for decompression and he is receiving IV rehydration. If there is not improvement in the bowel obstruction over a short interval with medical therapy, cecal resection may be needed. If there is improvement in the obstructive picture, further evaluation with colonoscopy, once he is medically stable, would be appropriate. General surgery will follow along. Procedures Date of Service Date of Service: 11/16/20
--- NOTE | 2020-11-16 11:00 | PM.CNCAR ---
History of Present Illness History of Present Illness Date of Service: 11/16/20 Consult reason: atrial fibrillation Chief complaint: KATHLEEN Narrative: This is a cardiology consultation regarding atrial fibrillation. Patient does not have any known cardiac problems. He denies any coronary artery disease or myocardial infarction or cardiac arrhythmias or cardiomyopathy or in fact any cardiac issues whatsoever. He states that he was very active till hospitalization. He used to ski but has not done so because of knee issues. 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 Current admission is for small-bowel obstruction. In this context, he was thought to have atrial fibrillation and hence we have been consulted. Patient himself has no cardiac symptoms whatsoever. Review of Systems Review of Systems: Yes all other systems are reviewed and are negative Cardiovascular: Cardiovascular: Reports as per HPI, Reports no additional cardiovascular complaints, Denies acrocyanosis, Denies cool extremities, Denies painful fingertips, Denies chest pain, Denies chest pain at rest, Denies diaphoresis, Denies syncope, Denies irregular heart rhythm, Denies claudication, Denies leg edema, Denies lightheadedness, Denies palpitations and Denies dyspnea Respiratory: Respiratory: Denies dyspnea Gastrointestinal: Gastrointestinal: Reports abdominal pain Neurologic: Denies syncope Endocrine: Endocrine: Denies palpitations PMFSH Past Medical History Medical History (Updated 11/16/20 @ 11:03 by Darwin Valadez MD) Arthritis Basal cell carcinoma Hiatal hernia HTN (hypertension) Hypothyroidism Lymphadenopathy Rosacea Family History Family History (Updated 07/24/20 @ 07:43 by Sharon Carter) Father Heart disease Surgical History Surgical History Hx of biopsy Hx of colonoscopy Hx of tonsillectomy Hx of total knee replacement Social History Social History (Updated 07/24/20 @ 08:36 by Sharon Carter) Alcohol intake: current Alcohol intake frequency: a few times a week Alcohol type: beer Cigarette Packs Per Day: 0.5 Currently Displaying Signs/Symptoms of Drug Intoxication Withdrawal: No Advance Directives: No Advance Directives Information Provided: Yes Do you have thoughts of harming others: None Do you have a plan to hurt others: No Plan Meds Allergies Allergy/AdvReac Type Severity Reaction Status Date / Time No Known Allergies Allergy Mild NONE Verified 11/16/20 02:59 Active Medications: Current Medications Generic Name Dose Route Start Last Admin Trade Name Freq PRN Reason Stop Dose Admin Acetaminophen 650 mg 11/16/20 05:21 Acetaminophen Supp 650 Mg Supp.Rect [place] Q6H PRN Pain, Mild (Pain Scale 1-3) Heparin Sodium (Porcine) 5,000 unit 11/16/20 06:00 11/16/20 06:04 Heparin Sodium,Porcine 5,000 Unit/Ml Vial SUBCUT 5,000 unit Q8H [facility] Administration Hydromorphone HCl 0.5 mg 11/16/20 05:57 11/16/20 06:56 Hydromorphone Hcl 0.5 Mg/0.5 Ml Syringe IVPUSH 0.5 mg Q4H PRN Administration Breakthrough Pain Ceftriaxone Sodium 1 gm/ 50 mls @ 100 mls/hr 11/16/20 05:30 11/16/20 06:35 Sodium Chloride IV Infused Q24H [facility] Infusion Azithromycin 500 mg/ Sodium 250 mls @ 125 mls/hr 11/16/20 05:30 11/16/20 10:05 Chloride IV Infused Q24H [facility] Infusion Metronidazole 500 mg in 100 mls @ 100 mls/hr 11/16/20 05:30 11/16/20 10:05 Flagyl IV Not Given Q8H [facility] Labetalol HCl 10 mg 11/16/20 05:21 11/16/20 06:05 Labetalol Hcl 100 Mg/20 Ml Vial IVPUSH 10 mg Q4H PRN Administration BP>160/90 Pantoprazole Sodium 40 mg 11/16/20 06:30 11/16/20 07:59 Pantoprazole Sodium 40 Mg/10 Ml Vial IVPUSH 40 mg DAILY@0630 [facility] Administration Sodium Chloride 3 ml 11/16/20 08:00 11/16/20 09:30 0.9 % Sodium Chloride Flush 3 Ml Syringe IVFLUSH Not Given QSHIFT [facility] Home Medications Medication Instructions Recorded Confirmed Last Taken Type atenolol 1 tab PO DAILY 07/24/20 11/16/20 Unknown History benazepril 1 tab PO DAILY 07/24/20 11/16/20 Unknown History clonidine HCl 1 tab PO BID 07/24/20 11/16/20 Unknown History levothyroxine 1 tab PO DAILY 07/24/20 11/16/20 Unknown History nifedipine 2 tab PO DAILY 07/24/20 11/16/20 Unknown History omeprazole 1 cap PO DAILY 07/24/20 11/16/20 Unknown History Physical Exam Vital Signs: Vital Signs: Last Vital Signs Temp 98.3 F 11/16/20 08:00 Pulse 97 11/16/20 08:00 Resp 18 11/16/20 08:00 BP 140/71 H 11/16/20 08:00 Pulse Ox 93 11/16/20 08:00 Body Mass Index 22.0 Const: General: cooperative and no acute distress HENMT: Other: Unremarkable Neck: Neck: Yes normal visual inspection Chest: Chest palpation & inspection: normal inspection of the chest Resp: Auscultation: clear to auscultation bilaterally, no crackles and no wheezes Cardio: Jugular venous distension: no JVD Palpation: normal PMI Heart sounds: S1 normal heart sound present, S2 normal heart sound present, no gallops, no murmurs and no rubs GI: Palpation (GI): Soft to palpation Back/Spine/Pelvis: Other: unremarkable Skin: General skin exam: no rashes or lesions noted Neuro: Cranial nerves: Yes Other cranial nerve findings present Extrem: General: Yes no clubbing, cyanosis or edema Psych: Mental Status: other Results Labs and Meds Result diagrams: 11/16/20 03:10 11/16/20 09:33 Lab results: Laboratory Results - last 24 hr 11/16/20 11/16/20 11/16/20 03:10 03:10 03:10 WBC 2.0 L RBC 4.05 L Hgb 12.8 L Hct 37.2 L MCV 91.9 MCH 31.6 MCHC 34.4 RDW 12.8 Plt Count 317 MPV 9.4 Immature Gran % (Auto) Cancelled Neut % (Auto) Cancelled Lymph % (Auto) Cancelled Barber % (Auto) Cancelled Eos % (Auto) Cancelled Baso % (Auto) Cancelled Lymph # (Auto) Cancelled Barber # (Auto) Cancelled Eos # (Auto) Cancelled Baso # (Auto) Cancelled Abs Immat Gran (auto) Cancelled Absolute Neuts (auto) Cancelled Absolute Nucleated RBC 0.000 Nucleated RBC % (auto) 0.0 Neutrophils % (Manual) 45 Band Neutrophils % 44 H Lymphocytes % (Manual) 7 L Atypical Lymphs % (Man) 2 Monocytes % (Manual) 2 Abs Neuts (Manual) 1.8 L Lymphocytes # (Manual) 0.1 L Toxic Vacuolation PRESENT Platelet Estimate NORMAL Large Platelets PRESENT Plt Morphology Comment NOTED RBC Morphology NORMAL Sodium 135 Potassium 4.5 Chloride 102 Carbon Dioxide 14 L Anion Gap 24 H BUN 77 H D Creatinine 3.03 H Estim Creat Clear Calc 17.5 Estimated GFR 20 Random Glucose 184 H D Lactic Acid 1.9 Calcium 8.9 Total Bilirubin 1.2 H Direct Bilirubin 0.5 AST 19 ALT 13 Alkaline Phosphatase 80 Troponin I High Sens B-Natriuretic Peptide Total Protein 7.1 Albumin 3.9 Lipase 11 Urine Color Urine Appearance Urine pH Ur Specific [place] Urine Protein Urine Glucose (UA) Urine Ketones Urine Blood Urine Nitrite Ur Leukocyte Esterase Urine RBC Urine WBC Ur Squamous Epith Cells Ur Renal Epithelial Cell Urine Bacteria Hyaline Casts Urine Mucus COVID-19 (WILLIAM) COVID-19 [employer] 11/16/20 11/16/20 11/16/20 03:10 03:21 04:31 WBC RBC Hgb Hct MCV MCH MCHC RDW Plt Count MPV Immature Gran % (Auto) Neut % (Auto) Lymph % (Auto) Barber % (Auto) Eos % (Auto) Baso % (Auto) Lymph # (Auto) Barber # (Auto) Eos # (Auto) Baso # (Auto) Abs Immat Gran (auto) Absolute Neuts (auto) Absolute Nucleated RBC Nucleated RBC % (auto) Neutrophils % (Manual) Band Neutrophils % Lymphocytes % (Manual) Atypical Lymphs % (Man) Monocytes % (Manual) Abs Neuts (Manual) Lymphocytes # (Manual) Toxic Vacuolation Platelet Estimate Large Platelets Plt Morphology Comment RBC Morphology Sodium Potassium Chloride Carbon Dioxide Anion Gap BUN Creatinine Estim Creat Clear Calc Estimated GFR Random Glucose Lactic Acid Calcium Total Bilirubin Direct Bilirubin AST ALT Alkaline Phosphatase Troponin I High Sens 16.3 B-Natriuretic Peptide Total Protein Albumin Lipase Urine Color YELLOW Urine Appearance CLEAR Urine pH 6.0 Ur Specific [place] 1.020 Urine Protein 2+ H Urine Glucose (UA) NEG Urine Ketones NEG Urine Blood NEG Urine Nitrite NEG Ur Leukocyte Esterase NEG Urine RBC 0 Urine WBC 0-2 Ur Squamous Epith Cells TRACE Ur Renal Epithelial Cell 1+ Urine Bacteria NONE Hyaline Casts 0-2 Urine Mucus TRACE COVID-19 (WILLIAM) Negative COVID-19 Clin Com See Note 11/16/20 11/16/20 11/16/20 07:10 09:33 09:33 WBC RBC Hgb Hct MCV MCH MCHC RDW Plt Count MPV Immature Gran % (Auto) Neut % (Auto) Lymph % (Auto) [place] % (Auto) Eos % (Auto) Baso % (Auto) Lymph # (Auto) Barber # (Auto) Eos # (Auto) Baso # (Auto) Abs Immat Gran (auto) Absolute Neuts (auto) Absolute Nucleated RBC Nucleated RBC % (auto) Neutrophils % (Manual) Band Neutrophils % Lymphocytes % (Manual) Atypical Lymphs % (Man) Monocytes % (Manual) Abs Neuts (Manual) Lymphocytes # (Manual) Toxic Vacuolation Platelet Estimate Large Platelets Plt Morphology Comment RBC Morphology Sodium 138 Potassium 4.7 Chloride 107 Carbon Dioxide 16 L Anion Gap 20 BUN 71 H Creatinine 2.79 H Estim Creat Clear Calc 19.0 Estimated GFR 22 Random Glucose 130 H Lactic Acid Calcium 8.0 L D Total Bilirubin Direct Bilirubin AST ALT Alkaline Phosphatase Troponin I High Sens 30.2 D B-Natriuretic Peptide 425 H Total Protein Albumin Lipase Urine Color Urine Appearance Urine pH Ur Specific [place] Urine Protein Urine Glucose (UA) Urine Ketones Urine Blood Urine Nitrite Ur Leukocyte Esterase Urine RBC Urine WBC Ur Squamous Epith Cells Ur Renal Epithelial Cell Urine Bacteria Hyaline Casts Urine Mucus COVID-19 (WILLIAM) COVID-19 Clin Com ECG Attestation: I personally reviewed and interpreted this ECG as follows: Interpretation: Admission EKG with sinus rhythm and frequent premature atrial contractions. Telemetry shows sinus rhythm. Imaging Radiologist's impression: Impressions Abdomen/Pelvis CT 11/16/20 03:28 IMPRESSION: Dilated small bowel with air-fluid levels, extending to the level of the terminal ileum. There is prominent wall thickening again noted, as seen on previous imaging. Neoplasm can have this appearance, particularly lymphoma. This is likely partially obstructive given the overall appearance on the study. Prominent adjacent right lower quadrant lymph nodes are seen, increased from prior. Persistent somewhat prominent retroperitoneal lymph nodes. Right middle lobe consolidation. This is concerning for pneumonia. Aspiration possible. Chest X-Ray 11/16/20 05:12 IMPRESSION: Known right middle lobe airspace opacity. This could represent atelectasis or pneumonia, better seen on the prior CT. Assessment and Plan (1) Atrial arrhythmia: Status: Acute (2) PAC (premature atrial contraction): Status: Acute (3) Small bowel obstruction: Status: Acute (4) Essential hypertension: Status: Acute (5) Acute renal failure: Qualifiers: Acute renal failure type: unspecified Qualified Code(s): N17.9 - Acute kidney failure, unspecified Status: Acute High sensitivity troponin slightly elevated at 30. First set was 16. Cardiac BNP is 425. Baseline creatinine is 1.17. Admission creatinine is 3.03. Now improved to 0.79. Possibly all prerenal. Agree with holding PATI inhibitors. Hydration. There is no evidence of any atrial fibrillation. EKG shows only frequent premature atrial contractions. May follow on telemetry. Procedures Date of Service Date of Service: 11/16/20
--- NOTE | 2020-11-16 11:14 | P.CNHO_ITS ---
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 He presents with partial SBO at the terminal ileum and AFIB/RVR. Review of Systems - Eyes Reports other - ENT Reports system reviewed and no additional complaints, except as documented - Cardiovascular Reports fast heart rate - Respiratory Reports cough - Gastrointestinal Reports bloating - Genitourinary Genitourinary: Reports other - Musculoskeletal Reports other - Neurologic Denies syncope [facility] Medical History: Medical History (Last Updated 11/16/20 @ 11:03 by Darwin Valadez MD) Arthritis Basal cell carcinoma Hiatal hernia HTN (hypertension) Hypothyroidism Lymphadenopathy Rosacea Family History: Family History (Last Updated 07/24/20 @ 07:43 by Sharon Carter) Father Heart disease Surgical History: Surgical History (Last Reviewed 11/16/20 @ 03:36 by Kiesha Babin MD) Hx of biopsy Hx of colonoscopy Hx of tonsillectomy Hx of total knee replacement Social History: Social History (Last Updated 07/24/20 @ 08:36 by Sharon Carter) Alcohol History: Alcohol intake: current Alcohol History Details: Alcohol intake frequency: a few times a week Alcohol type: beer Tobacco History: Cigarette Packs Per Day: 0.5 Substance Use History: Currently Displaying Signs/Symptoms of Drug Intoxication Withdrawal: No Advance Directives: Advance Directives: No Advance Directives Information Provided: Yes Homicidal Assessment: Do you have thoughts of harming others: None Do you have a plan to hurt others: No Plan Home Medications and Allergies Current Medications: Current Medications Generic Name Dose Route Start Last Admin Trade Name Freq PRN Reason Stop Dose Admin Acetaminophen 650 mg 11/16/20 05:21 Acetaminophen Supp 650 Mg Supp.Rect [place] Q6H PRN Pain, Mild (Pain Scale 1-3) Heparin Sodium (Porcine) 5,000 unit 11/16/20 06:00 11/16/20 06:04 Heparin Sodium,Porcine 5,000 Unit/Ml Vial SUBCUT 5,000 unit Q8H [facility] Administration Hydromorphone HCl 0.5 mg 11/16/20 05:57 11/16/20 11:01 Hydromorphone Hcl 0.5 Mg/0.5 Ml Syringe IVPUSH 0.5 mg Q4H PRN Administration Breakthrough Pain Ceftriaxone Sodium 1 gm/ 50 mls @ 100 mls/hr 11/16/20 05:30 11/16/20 06:35 Sodium Chloride IV Infused Q24H [facility] Infusion Azithromycin 500 mg/ Sodium 250 mls @ 125 mls/hr 11/16/20 05:30 11/16/20 10:05 Chloride IV Infused Q24H [facility] Infusion Metronidazole 500 mg in 100 mls @ 100 mls/hr 11/16/20 05:30 11/16/20 10:05 Flagyl IV Not Given Q8H [facility] Labetalol HCl 10 mg 11/16/20 05:21 11/16/20 06:05 Labetalol Hcl 100 Mg/20 Ml Vial IVPUSH 10 mg Q4H PRN Administration BP>160/90 Pantoprazole Sodium 40 mg 11/16/20 06:30 11/16/20 07:59 Pantoprazole Sodium 40 Mg/10 Ml Vial IVPUSH 40 mg DAILY@0630 [facility] Administration Sodium Chloride 3 ml 11/16/20 08:00 11/16/20 09:30 0.9 % Sodium Chloride Flush 3 Ml Syringe IVFLUSH Not Given QSHIFT [facility] Home Medications Medication Instructions Recorded Confirmed Type atenolol 1 tab PO DAILY 07/24/20 11/16/20 History benazepril 1 tab PO DAILY 07/24/20 11/16/20 History clonidine HCl 1 tab PO BID 07/24/20 11/16/20 History levothyroxine 1 tab PO DAILY 07/24/20 11/16/20 History nifedipine 2 tab PO DAILY 07/24/20 11/16/20 History omeprazole 1 cap PO DAILY 07/24/20 11/16/20 History Allergies Allergy/AdvReac Type Severity Reaction Status Date / Time No Known Allergies Allergy Mild NONE Verified 11/16/20 02:59 Physical Exam Vital signs: Vital Signs Temp 98.3 F 11/16/20 08:00 Pulse 97 11/16/20 08:00 Resp 18 11/16/20 08:00 BP 140/71 H 11/16/20 08:00 Pulse Ox 93 11/16/20 08:00 Intake & Output 11/15/20 11/16/2011/16/21 18:59 06:59 18:59 Intake Total 2049 2250 / 2250 Balance 2049 2250 / 2250 Intake: Intake, IV Amount 2049 / 2250 0.9 % Sodium Chloride 1,000 ml 2000 / 2000 1000 / 1000 @ 999 mls/hr IV .Q1H1M [facility] Rx#: [id number] Azithromycin 500 mg In 0.9 % 250 / 250 Sodium Chloride 250 ml @ 125 mls/hr IV Q24H [facility] Rx#: [id number] cefTRIAXone sodium 1 gm In 0.9 50 / 50 % Sodium Chloride 50 ml @ 100 mls/hr IV Q24H [facility] Rx#: [id number] Dextrose 5 % and 0.45 % NaCl 1, 1000 / 1000 000 ml @ 100 mls/hr IVCONT . Q10H [facility] Rx#:[id number] Other: Weight 63.9 kg Weight 63.9 kg - Constitutional Present: severe distress - Routine HEENT Exam Head: Present: atraumatic - Routine Respiratory Exam Present: decreased breath sounds - Routine Cardiovascular Exam Cardiovascular: Present: tachycardia - Routine Abdominal Exam Present: distended, hypoactive bowel sounds - Routine Rectal Exam Patient deferred: visual exam - Routine Extremities Exam Present: nontender Hem/Onc Consult Result - Labs CBC & Chem 7: 11/16/20 03:10 11/16/20 09:33 Labs: Short CBC 11/16/20 Range/Units 03:10 WBC 2.0 L (4.8-10.8) X10*3/uL Hgb 12.8 L (14.0-18.0) g/dl Hct 37.2 L (42-52) % Plt Count 317 (160-400) X10*3/uL BMP 11/16/20 11/16/20 03:10 09:33 Sodium 135 138 Potassium 4.5 4.7 Chloride 102 107 Carbon Dioxide 14 L 16 L BUN 77 H D 71 H Creatinine 3.03 H 2.79 H Calcium 8.9 8.0 L D Liver Function 11/16/20 Range/Units 03:10 Total Bilirubin 1.2 H (0.0-1.0) mg/dL Direct Bilirubin 0.5 (0.0-0.5) mg/dL AST 19 (5-37) U/L ALT 13 (0-40) U/L Alkaline Phosphatase 80 (39-117) U/L Albumin 3.9 (3.5-5.0) g/dL Urine 11/16/20 Range/Units 04:31 Urine Color YELLOW Urine Appearance CLEAR Urine pH 6.0 (5.0-8.0) Ur Specific [place] 1.020 (1.005-1.025) Urine Protein 2+ H (NEG-TRACE) MG/DL Urine Glucose (UA) NEG (NEG) MG/DL Assessment and Plan (1) Small bowel obstruction Start date: 11/16/20 Status: Acute The partial obstruction may be on the basis of lymphoma, possibly carcinoid of inflammatory disease. The monoclonal gammopathy requires no treatment at present. The low white cell count is worrisome but the differential is normal and it is likely due to the acute illness. The red cells and platelets are normal. I will follow with you over the weekend.
--- NOTE | 2020-11-16 11:15 | P.PNIM_ITS ---
Subjective Subjective Date of Service: 11/16/20 Physical Exam Vital Signs: Vital Signs: Last Vital Signs Temp 98.3 F 11/16/20 08:00 Pulse 97 11/16/20 08:00 Resp 18 11/16/20 08:00 BP 140/71 H 11/16/20 08:00 Pulse Ox 93 11/16/20 08:00 Body Mass Index 22.0 Objective Data Current Medications Generic Name Dose Route Start Last Admin Trade Name Freq PRN Reason Stop Dose Admin Acetaminophen 650 mg 11/16/20 05:21 Acetaminophen Supp 650 Mg Supp.Rect [place] Q6H PRN Pain, Mild (Pain Scale 1-3) Heparin Sodium (Porcine) 5,000 unit 11/16/20 06:00 11/16/20 06:04 Heparin Sodium,Porcine 5,000 Unit/Ml Vial SUBCUT 5,000 unit Q8H ROCKY Administration Hydromorphone HCl 0.5 mg 11/16/20 05:57 11/16/20 11:01 Hydromorphone Hcl 0.5 Mg/0.5 Ml Syringe IVPUSH 0.5 mg Q4H PRN Administration Breakthrough Pain Ceftriaxone Sodium 1 gm/ 50 mls @ 100 mls/hr 11/16/20 05:30 11/16/20 06:35 Sodium Chloride IV Infused Q24H ROCKY Infusion Azithromycin 500 mg/ Sodium 250 mls @ 125 mls/hr 11/16/20 05:30 11/16/20 10:05 Chloride IV Infused Q24H ROCKY Infusion Metronidazole 500 mg in 100 mls @ 100 mls/hr 11/16/20 05:30 11/16/20 10:05 Flagyl IV Not Given Q8H ROCKY Labetalol HCl 10 mg 11/16/20 05:21 11/16/20 06:05 Labetalol Hcl 100 Mg/20 Ml Vial IVPUSH 10 mg Q4H PRN Administration BP>160/90 Pantoprazole Sodium 40 mg 11/16/20 06:30 11/16/20 07:59 Pantoprazole Sodium 40 Mg/10 Ml Vial IVPUSH 40 mg DAILY@0630 ROCKY Administration Sodium Chloride 3 ml 11/16/20 08:00 11/16/20 09:30 0.9 % Sodium Chloride Flush 3 Ml Syringe IVFLUSH Not [facility] CBC & Chem 7: 11/16/20 03:10 11/16/20 09:33 Labs: Laboratory Results - last 24 hr 11/16/20 11/16/20 11/16/20 03:10 03:10 03:10 MCV 91.9 MCH 31.6 MCHC 34.4 RDW 12.8 Plt Count 317 MPV 9.4 Immature Gran % (Auto) Cancelled Neut % (Auto) Cancelled Lymph % (Auto) Cancelled [place] % (Auto) Cancelled Eos % (Auto) Cancelled Baso % (Auto) Cancelled Lymph # (Auto) Cancelled [place] # (Auto) Cancelled Eos # (Auto) Cancelled Baso # (Auto) Cancelled Abs Immat Gran (auto) Cancelled Absolute Neuts (auto) Cancelled Absolute Nucleated RBC 0.000 Nucleated RBC % (auto) 0.0 Neutrophils % (Manual) 45 Band Neutrophils % 44 H Lymphocytes % (Manual) 7 L Atypical Lymphs % (Man) 2 Monocytes % (Manual) 2 Abs Neuts (Manual) 1.8 L Lymphocytes # (Manual) 0.1 L Toxic Vacuolation PRESENT Platelet Estimate NORMAL Large Platelets PRESENT Plt Morphology Comment NOTED RBC Morphology NORMAL Anion Gap 24 H Estim Creat Clear Calc 17.5 Estimated GFR 20 Random Glucose 184 H D Lactic Acid 1.9 Calcium 8.9 Total Bilirubin 1.2 H Direct Bilirubin 0.5 AST 19 ALT 13 Alkaline Phosphatase 80 Troponin I High Sens B-Natriuretic Peptide Total Protein 7.1 Albumin 3.9 Lipase 11 Urine Color Urine Appearance Urine pH Ur Specific [place] Urine Protein Urine Glucose (UA) Urine Ketones Urine Blood Urine Nitrite Ur Leukocyte Esterase Urine RBC Urine WBC Ur Squamous Epith Cells Ur Renal Epithelial Cell Urine Bacteria Hyaline Casts Urine Mucus COVID-19 ([facility]IAM) COVID-19 Clin Com 11/16/20 11/16/20 11/16/20 03:10 03:21 04:31 MCV MCH MCHC RDW Plt Count MPV Immature Gran % (Auto) Neut % (Auto) Lymph % (Auto) [place] % (Auto) Eos % (Auto) Baso % (Auto) Lymph # (Auto) [place] # (Auto) Eos # (Auto) Baso # (Auto) Abs Immat Gran (auto) Absolute Neuts (auto) Absolute Nucleated RBC Nucleated RBC % (auto) Neutrophils % (Manual) Band Neutrophils % Lymphocytes % (Manual) Atypical Lymphs % (Man) Monocytes % (Manual) Abs Neuts (Manual) Lymphocytes # (Manual) Toxic Vacuolation Platelet Estimate Large Platelets Plt Morphology Comment RBC Morphology Anion Gap Estim Creat Clear Calc Estimated GFR Random Glucose Lactic Acid Calcium Total Bilirubin Direct Bilirubin AST ALT Alkaline Phosphatase Troponin I High Sens 16.3 B-Natriuretic Peptide Total Protein Albumin Lipase Urine Color YELLOW Urine Appearance CLEAR Urine pH 6.0 Ur Specific [place] 1.020 Urine Protein 2+ H Urine Glucose (UA) NEG Urine Ketones NEG Urine Blood NEG Urine Nitrite NEG Ur Leukocyte Esterase NEG Urine RBC 0 Urine WBC 0-2 Ur Squamous Epith Cells TRACE Ur Renal Epithelial Cell 1+ Urine Bacteria NONE Hyaline Casts 0-2 Urine Mucus TRACE COVID-19 ([facility]ILLIAM) Negative COVID-19 Clin Com See Note 11/16/20 11/16/20 11/16/20 07:10 09:33 09:33 MCV MCH MCHC RDW Plt Count MPV Immature Gran % (Auto) Neut % (Auto) Lymph % (Auto) [place] % (Auto) Eos % (Auto) Baso % (Auto) Lymph # (Auto) [place] # (Auto) Eos # (Auto) Baso # (Auto) Abs Immat Gran (auto) Absolute Neuts (auto) Absolute Nucleated RBC Nucleated RBC % (auto) Neutrophils % (Manual) Band Neutrophils % Lymphocytes % (Manual) Atypical Lymphs % (Man) Monocytes % (Manual) Abs Neuts (Manual) Lymphocytes # (Manual) Toxic Vacuolation Platelet Estimate Large Platelets Plt Morphology Comment RBC Morphology Anion Gap 20 Estim Creat Clear Calc 19.0 Estimated GFR 22 Random Glucose 130 H Lactic Acid Calcium 8.0 L D Total Bilirubin Direct Bilirubin AST ALT Alkaline Phosphatase Troponin I High Sens 30.2 D B-Natriuretic Peptide 425 H Total Protein Albumin Lipase Urine Color Urine Appearance Urine pH Ur Specific [place] Urine Protein Urine Glucose (UA) Urine Ketones Urine Blood Urine Nitrite Ur Leukocyte Esterase Urine RBC Urine WBC Ur Squamous Epith Cells Ur Renal Epithelial Cell Urine Bacteria Hyaline Casts Urine Mucus COVID-19 ([facility]IAM) COVID-19 Clin Com Progress Note: A&P (1) Small bowel obstruction: Status: Acute Assessment and Plan: 80-year-old male with a past medical history of hypertension, hypothyroidism, hiatal hernia, 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 Noted to have KATHLEEN and partial SBO. Aspiration Pneumonia secondary to vomiting renally dosed Zosyn follow cultures KATHLEEN: Likely prerenal. tredning down Continue IV fluids. Avoid nephrotoxins. Hold home Star inhibitor. Nephrology consult. Acidosis: Likely in the setting of KATHLEEN lactate within normal limits. IV fluids. Partial SBO: Supportive care NGT to wall suction, cxr for placement IV fluids. Strict NPO. General surgery following Abdominal wall thickening: Question neoplasm. seen and evaluated by Oncology, partial obstruction may be secondary to carcino id inflammatory disease, no treatment at this time, follow closely Chest wall pain: Atypical in nature. Cycle enzymes. New onset Afib: seen and evaluated by Cardiology, no evidence of atrial fibrillation History of hypertension: avoid Star due to KATHLEEN Patient's home medication atenolol, benazepril, clonidine, nifedipine are on hold given strict NPO. Will give the patient on labetalol IV p.r.n. for high blood pressure. DVT prophylaxis: Subcu heparin Code status: Full code Attending Dr Cheung Quality Stroke Does the patient have a stroke diagnosis?: No VTE Prior VTE?: No VTE Risk Level:: Medical - moderate - high VTE Device Contraindication: N/A - Device Ordered VTE Drug Contraindication: N/A - Med Ordered
--- NOTE | 2020-11-16 11:32 | MHC.CM.PN ---
Addendum entered by Marlee Kelly 11/16/20 11:38: PTS PROVIDER UNAVAILABLE TO MEET WITH PTS DAUGHTER AT THIS TIME. PER DISCUSSION WITH PROVIDER, CM OBTAINED THE FAMILY MEMBERS CONTACT INFORMATION, ZHAO HARO [phone], AND INFORMED HER THE PROVIDER WOULD CONTACT HER VIA T/C. Original Note: CM MET WITH PT AND DAUGHTER WHO WAS AT BEDSIDE. PTS DAUGHTER REPORTS THE PT LIVES WITH HIS , GRAND DAUGHTER AND GREAT GRAND SON. PT IS REPORTEDLY INDEPENDENT AND USES NO DME AT BASELINE. 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 PT REPORTEDLY HAS A HCP COMPLETED THAT NAMES HIS ELDEST DAUGHTER, ANTELMO, THE AGENT. PT REPORTS HIS PCP IS ABDULLAHI SCOTT. PTS DAUGHTER AT BEDSIDE REQUESTED TO SPEAK WITH MD SHE DOES NOT HAVE CLEAR INFORMATION TO PTS CONDITION. REQUEST FORWARDED TO COVERING PROVIDER. IMM DELIVERED CURRENT DC PLAN IS HOME WITH NO SERVICES FAMILY TO TRANSPORT
--- NOTE | 2020-11-16 12:16 | P.CONNP_ITS ---
History of Present Illness Reason for Consult Consult date: 11/16/20 Reason for consult: KATHLEEN Chief Complaint Chief complaint: KATHLEEN History of Present Illness Narrative: Mr. Josh Abdul is an 80-year-old gentleman with past medical history of HTN, Proteinuria, MGUS, CKD stage II (BL Cr 1.1-1.2mg/dL), choric back pain, who presents to the hospital with 4 days of poor PO intake in the setting of partial SBO and aspiration PNA. Cr has peaked to 3.03mg/dL with AGMA. He was admitted with Zosyn and isotonic IVF with Cr improving today to 2.7mg/dL. His acidosis is partially improved. The patient remains NPO. Review of Systems Review of Systems Positive nausea, vomiting No BM No chest pain or shortness of breath No diaphoresis Yes all other systems are reviewed and are negative, unobtainable due to endotracheal tube, Unobtainable due to mental condition, Unobtainable due to mental status and Other Eyes: Reports other Reports system reviewed and no additional complaints, except as documented Cardiovascular: Reports as per HPI, Reports no additional cardiovascular complaints, Denies acrocyanosis, Denies cool extremities, Denies painful fingertips, Denies chest pain, Denies chest pain at rest, Denies diaphoresis, Denies syncope, Reports rapid heart rate, Denies irregular heart rhythm, Denies claudication, Denies leg edema, Denies lightheadedness, Denies palpitations and Denies dyspnea Respiratory: Reports cough and Denies dyspnea Gastrointestinal: Reports abdominal pain and Reports bloating Genitourinary: Reports other Musculoskeletal: Reports other Denies syncope Endocrine: Denies palpitations [facility] Past Medical History Medical History (Updated 11/16/20 @ 12:21 by Abundio James MD) Arthritis Basal cell carcinoma Hiatal hernia HTN (hypertension) Hypothyroidism Lymphadenopathy Rosacea Family History Family History (Updated 07/24/20 @ 07:43 by Sharon Carter) Father Heart disease Surgical History Surgical History Hx of biopsy Hx of colonoscopy Hx of tonsillectomy Hx of total knee replacement Social History Social History (Updated 07/24/20 @ 08:36 by Sharon Carter) Alcohol intake: current Alcohol intake frequency: a few times a week Alcohol type: beer Cigarette Packs Per Day: 0.5 Currently Displaying Signs/Symptoms of Drug Intoxication Withdrawal: No Advance Directives: No Advance Directives Information Provided: Yes Do you have thoughts of harming others: None Do you have a plan to hurt others: No Plan service: Yes Current occupational status: retired Meds Allergies Allergy/AdvReac Type Severity Reaction Status Date / Time No Known Allergies Allergy Mild NONE Verified 11/16/20 02:59 Active Medications: Current Medications Generic Name Dose Route Start Last Admin Trade Name Freq PRN Reason Stop Dose Admin Acetaminophen 650 mg 11/16/20 05:21 Acetaminophen Supp 650 Mg Supp.Rect [place] Q6H PRN Pain, Mild (Pain Scale 1-3) Heparin Sodium (Porcine) 5,000 unit 11/16/20 06:00 11/16/20 06:04 Heparin Sodium,Porcine 5,000 Unit/Ml Vial SUBCUT 5,000 unit Q8H ROCKY Administration Hydromorphone HCl 0.5 mg 11/16/20 05:57 11/16/20 11:01 Hydromorphone Hcl 0.5 Mg/0.5 Ml Syringe IVPUSH 0.5 mg Q4H PRN Administration Breakthrough Pain Piperacillin Sod/Tazobactam 50 mls @ 100 mls/hr 11/16/20 12:00 Sod 2.25 gm/ Sodium Chloride IV Q6H [facility] Labetalol HCl 10 mg 11/16/20 05:21 11/16/20 06:05 Labetalol Hcl 100 Mg/20 Ml Vial IVPUSH 10 mg Q4H PRN Administration BP>160/90 Pantoprazole Sodium 40 mg 11/16/20 06:30 11/16/20 07:59 Pantoprazole Sodium 40 Mg/10 Ml Vial IVPUSH 40 mg DAILY@0630 [facility] Administration Sodium Chloride 3 ml 11/16/20 08:00 11/16/20 09:30 0.9 % Sodium Chloride Flush 3 Ml Syringe IVFLUSH Not Given Q[facility] Home Medications Medication Instructions Recorded Confirmed Last Taken Type atenolol 1 tab PO DAILY 07/24/20 11/16/20 Unknown History benazepril 1 tab PO DAILY 07/24/20 11/16/20 Unknown History clonidine HCl 1 tab PO BID 07/24/20 11/16/20 Unknown History levothyroxine 1 tab PO DAILY 07/24/20 11/16/20 Unknown History nifedipine 2 tab PO DAILY 07/24/20 11/16/20 Unknown History omeprazole 1 cap PO DAILY 07/24/20 11/16/20 Unknown History Physical Exam Vital Signs: Last Vital Signs Temp 97.5 F 11/16/20 11:51 Pulse 77 11/16/20 11:51 Resp 18 11/16/20 11:51 BP 137/63 11/16/20 11:51 Pulse Ox 96 11/16/20 11:51 Body Mass Index 22.0 Const General: cooperative and no acute distress HENOK Other: Unremarkable Neck Neck: Yes normal visual inspection Chest Chest palpation & inspection: normal inspection of the chest Resp Auscultation: clear to auscultation bilaterally, no crackles and no wheezes Cardio Jugular venous distension: no JVD Palpation: normal PMI Heart sounds: S1 normal heart sound present, S2 normal heart sound present, no gallops, no murmurs and no rubs GI Palpation (GI): Soft to palpation Back/Spine/Pelvis Other: unremarkable Skin General skin exam: no rashes or lesions noted Neuro Cranial nerves: Yes Other cranial nerve findings present Extrem General: Yes no clubbing, cyanosis or edema Psych Mental Status: other Results Lab Results Result Diagrams: 11/16/20 03:10 11/16/20 09:33 Lab results: Chemistry 11/16/20 11/16/20 03:10 09:33 Sodium 135 138 Potassium 4.5 4.7 Carbon Dioxide 14 L 16 L BUN 77 H D 71 H Creatinine 3.03 H 2.79 H Calcium 8.9 8.0 L D Hematology 11/16/20 03:10 WBC 2.0 L Hgb 12.8 L Plt Count 317 Urinalysis 11/16/20 04:31 Urine Color YELLOW Urine Appearance CLEAR Urine pH 6.0 Ur Specific [place] 1.020 Urine Protein 2+ H Urine Glucose (UA) NEG Urine Ketones NEG Urine Blood NEG Urine Nitrite NEG Ur Leukocyte Esterase NEG Urine RBC 0 Urine WBC 0-2 Ur Squamous Epith Cells TRACE Hyaline Casts 0-2 Assessment and Plan (1) Acute renal failure: Qualifiers: Acute renal failure type: unspecified Qualified Code(s): N17.9 - Acute kidney failure, unspecified Status: Acute Mr. Josh Abdul is an 80-year-old gentleman with past medical history of HTN, Proteinuria, MGUS, CKD stage II (BL Cr 1.1-1.2mg/dL), choric back pain, who presents to the hospital with 4 days of poor PO intake in the setting of p artial SBO and aspiration PNA. His hospital course is complicated by KATHLEEN on CKD. 1. KATHLEEN on CKD stage II Follows Dr Checo Greenberg outpatient Cr baseline 1.1-1.2mg/dL. Proteinuric at baseline he is on benazepril outpatient. Now with KATHLEEN in the setting of Small bowel obstruction and reduced PO intake. PT is hypovolemic. He has 2 hyaline per HPF on urine. Plan: - please continue IVF, choice would be LR at 125cc/hr - do not use saline in the setting of acidosis. - hold ACEi for now - renal panel daily - conservative approach otherwise. - BP stble so far (2) Essential hypertension: Status: Acute (3) CKD (chronic kidney disease) stage 2, GFR 60-89 ml/min: Status: Acute Procedures Date of Service Date of Service: 11/16/20
[2020-11-16] MEDS: Piperacillin Sodium/Tazobactam 2.25 GM in 0.9 % Sodium Chloride 50 ML IV ×2 (12:48→17:16)
[2020-11-16] MEDS: 0.9 % Sodium Chloride Flush 3 ML SYRINGE IVFLUSH ×2 (17:16→21:58)
[2020-11-17] VITALS (9 sets, daily range): BP systolic 133–186; BP diastolic 60–92; PULSE 66–106; RESP 16–20; TEMP 36.7–37; O2SAT 95–98
[2020-11-17] MEDS: Piperacillin Sodium/Tazobactam 2.25 GM in 0.9 % Sodium Chloride 50 ML IV ×5 (00:10→23:16)
[2020-11-17] MEDS: Heparin Sodium,Porcine 5,000 UNIT/ML VIAL 5000 UNIT SUBCUT ×3 (05:38→20:45)
[2020-11-17] MEDS: Pantoprazole Sodium 40 MG/10 ML VIAL IVPUSH (05:39)
[2020-11-17] MEDS: HYDROmorphone HCl 0.5 MG/0.5 ML SYRINGE IVPUSH (06:19)
[2020-11-17 07:09] LABS: Hematocrit 36.1 % (42-52); Mean Corpuscular HGB Conc 33.2 g/dl (31.0-36.0); Mean Corpuscular Hemoglobin 31.7 pg (27.0-33.0); Mean Corpuscular Volume 95.3 fL (80-98); Mean Platelet Volume 10.3 fL (9.4-12.4); Platelet Count 311 X10*3/uL (160-400); Red Blood Count 3.79 X10*6/uL (4.60-5.80); Red Cell Distribution Width 13.2 % (11.0-16.0)
[2020-11-17 07:25] LABS: Anion Gap 21 (12-20); Blood Urea Nitrogen 72 mg/dL (9-16); Calcium 8.5 mg/dL (8.4-10.2); Carbon Dioxide 17 mmol/L (22-29); Chloride 110 mmol/L (96-108); Creatinine Clr Calc Pharmacy 21.3; Estimated Glomerular Filt Rate 25; Glucose Random 92 mg/dL (60-115); Potassium 4.6 mmol/L (3.3-5.1); Sodium 143 mmol/L (135-145)
[2020-11-17 07:32] LABS: B Type Natriuretic Peptide 894 pg/mL (<100)
--- NOTE | 2020-11-17 07:57 | PM.IMPN ---
Subjective Subjective Date of Service: 11/17/20 Interval History: Follow up partial SBO NGT in place OOB to chair some discomfort from the NGT Physical Exam Vital Signs: Vital Signs: Last Vital Signs Temp 98.4 F 11/17/20 03:32 Pulse 66 11/17/20 03:32 Resp 18 11/17/20 03:32 BP 153/74 H 11/17/20 03:32 Pulse Ox 96 11/17/20 03:32 Body Mass Index 22.0 Appearing in no acute distress NGT in place to wall suction lung sounds are clear to auscultation heart regular rate rhythm, clear S1, S2 positive bowel sounds, abdomen is soft, nontender neuro patient is alert x3, no focal deficits Objective Data Current Medications Generic Name Dose Route Start Last Admin Trade Name Freq PRN Reason Stop Dose Admin Acetaminophen 650 mg 11/16/20 05:21 Acetaminophen Supp 650 Mg Supp.Rect [place] Q6H PRN Pain, Mild (Pain Scale 1-3) Heparin Sodium (Porcine) 5,000 unit 11/16/20 06:00 11/17/20 05:38 Heparin Sodium,Porcine 5,000 Unit/Ml Vial SUBCUT 5,000 unit Q8H ROCKY Administration Hydromorphone HCl 0.5 mg 11/16/20 05:57 11/17/20 06:19 Hydromorphone Hcl 0.5 Mg/0.5 Ml Syringe IVPUSH 0.5 mg Q4H PRN Administration Breakthrough Pain Piperacillin Sod/Tazobactam 50 mls @ 100 mls/hr 11/16/20 12:00 11/17/20 06:23 Sod 2.25 gm/ Sodium Chloride IV Infused Q6H ROCKY Infusion Lactated Ringer's 1,000 mls @ 125 mls/hr 11/17/20 08:00 Lr IVCONT .Q8H ROCKY Labetalol HCl 10 mg 11/16/20 05:21 11/16/20 06:05 Labetalol Hcl 100 Mg/20 Ml Vial IVPUSH 10 mg Q4H PRN Administration BP>160/90 Pantoprazole Sodium 40 mg 11/16/20 06:30 11/17/20 05:39 Pantoprazole Sodium 40 Mg/10 Ml Vial IVPUSH 40 mg DAILY@0630 ROCKY Administration Sodium Chloride 3 ml 11/16/20 08:00 11/16/20 21:58 0.9 % Sodium Chloride Flush 3 Ml Syringe IVFLUSH 3 ml QSHIFT ROCKY Administration Labs CBC & Chem 7: 11/17/20 05:50 11/17/20 05:50 Labs: Laboratory Results - last 24 hr 11/16/20 11/16/20 11/17/20 09:33 09:33 05:50 Anion Gap 20 Estim Creat Clear Calc 19.0 Estimated GFR 22 Random Glucose 130 H Calcium 8.0 L D B-Natriuretic Peptide 425 H 894 H 11/17/20 05:50 Anion Gap 21 H Estim Creat Clear Calc 21.3 Estimated GFR 25 Random Glucose 92 Calcium 8.5 D B-Natriuretic Peptide Microbiology Microbiology Results: Microbiology 11/16/20 03:12 Blood - Venous Blood Culture - Preliminary No growth after 24 hours. 11/16/20 03:10 Blood - Venous Blood Culture - Preliminary No growth after 24 hours. Progress Note: A&P (1) CKD (chronic kidney disease) stage 2, GFR 60-89 ml/min: Status: Acute Assessment and Plan: 80-year-old male with a past medical history of hypertension, hypothyroidism, hiatal hernia, 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 Noted to have KATHLEEN and partial SBO. Partial SBO: Supportive care, possibly secondary to inflammatory vs neoplastic process NGT to wall suction IV fluids. Strict NPO. General surgery following Aspiration Pneumonia secondary to vomiting renally dosed Zosyn cultures neg after 24hrs KATHLEEN: Likely prerenal. trending down Continue IV fluids. Avoid nephrotoxins. Hold Star inhibitor. Nephrology consult. Acidosis: Likely in the setting of KATHLEEN lactate within normal limits. IV fluids. Abdominal wall thickening: Question neoplasm. seen and evaluated by Oncology, partial obstruction may be secondary to carcinoid inflammatory disease, no treatment at this time, follow closely o/p oncology follow up Chest wall pain: Atypical in nature. Cycle enzymes. New onset Afib: seen and evaluated by Cardiology, no evidence of atrial fibrillation History of hypertension: avoid Star due to KATHLEEN Patient's home medication atenolol, benazepril, clonidine, nifedipine are on hold given strict NPO. Will give the patient on labetalol IV p.r.n. for high blood pressure. DVT prophylaxis: Subcu heparin Code status: Full code Attending Dr Cheung Quality Stroke Does the patient have a stroke diagnosis?: No VTE Prior VTE?: No VTE Risk Level:: Medical - moderate - high VTE Device Contraindication: N/A - Device Ordered VTE Drug Contraindication: N/A - Med Ordered
[2020-11-17 08:02] LABS: WBC ABN SCTR FOR CBC 1; White Blood Count 15.1 X10*3/uL (4.8-10.8)
[2020-11-17 08:05] LABS: Band Neutrophils Percent 69 % (3-5); Lymphocytes Absolute Manual 0.5 X10*3/uL (0.6-4.8); Lymphocytes Percent Manual 3 % (20-40); Metamyelocytes Absolute 0.3 X10*3/uL; Metamyelocytes Percent 2 %; Monocytes Absolute Manual 0.9 X10*3/uL (0.0-1.2); Monocytes Percent Manual 6 % (2-11); Neutrophils Absolute Manual 13.4 X10*3/uL (2.2-7.9); Neutrophils Percent Manual 20 % (45-73)
[2020-11-17 08:06] LABS: Acanthocytes 3+ (>5) /OIF; Platelet Estimate NORMAL (NORMAL); Platelet Morphology Comment NORMAL; RBC Morphology NOTED; Toxic Vacuolation PRESENT
[2020-11-17] MEDS: Lactated Ringers 1,000 ML 125 ML IVCONT ×2 (08:28→16:46)
[2020-11-17] MEDS: 0.9 % Sodium Chloride Flush 3 ML SYRINGE IVFLUSH (08:28)
--- NOTE | 2020-11-17 11:07 | PM.PNGS ---
Subjective Subjective Date of Service: 11/17/20 Interval history: Feels a little better. No abdominal pain. No flatus or bowel movement. Still having right-sided chest pain on inspiration. Physical Exam Vital Signs: Vital Signs: Last Vital Signs Temp 98.3 F 11/17/20 07:59 Pulse 106 H 11/17/20 07:59 Resp 20 11/17/20 07:59 BP 164/92 H 11/17/20 07:59 Pulse Ox 95 11/17/20 07:59 Body Mass Index 22.0 Const: General: cooperative, no acute distress and alert Resp: Effort & Inspection: normal respiratory effort Auscultation: diminished lung sounds on the right in the lower lung aparicio Cardio: Rate: regular rate Rhythm: regular rhythm GI: Other: Distended but softer, nontender, bowel sounds active, no palpable masses Skin: Other: Normal color, warm and dry Progress Note: A&P Assessment and plan (1) Acute renal failure: Status: Acute (2) Small bowel obstruction: Status: Acute (3) Lymphadenopathy: Status: Chronic Assessment and Plan: Small-bowel obstruction secondary to inflammatory or neoplastic process, clinically stable. Continue NG decompression. BUN and creatinine are trending down with rehydration. Continue to follow. Fall Risk Details Current Medications: Current Medications Generic Name Dose Route Start Last Admin Trade Name Freq PRN Reason Stop Dose Admin Acetaminophen 650 mg 11/16/20 05:21 Acetaminophen Supp 650 Mg Supp.Rect [place] Q6H PRN Pain, Mild (Pain Scale 1-3) Heparin Sodium (Porcine) 5,000 unit 11/16/20 06:00 11/17/20 05:38 Heparin Sodium,Porcine 5,000 Unit/Ml Vial SUBCUT 5,000 unit Q8H ROCKY Administration Hydromorphone HCl 0.5 mg 11/16/20 05:57 11/17/20 06:19 Hydromorphone Hcl 0.5 Mg/0.5 Ml Syringe IVPUSH 0.5 mg Q4H PRN Administration Breakthrough Pain Piperacillin Sod/Tazobactam 50 mls @ 100 mls/hr 11/16/20 12:00 11/17/20 06:23 Sod 2.25 gm/ Sodium Chloride IV Infused Q6H ROCKY Infusion Lactated Ringer's 1,000 mls @ 125 mls/hr 11/17/20 08:00 11/17/20 08:28 Lr IVCONT 125 mls/hr .Q8H ROCKY Administration Labetalol HCl 10 mg 11/16/20 05:21 11/16/20 06:05 Labetalol Hcl 100 Mg/20 Ml Vial IVPUSH 10 mg Q4H PRN Administration BP>160/90 Pantoprazole Sodium 40 mg 11/16/20 06:30 11/17/20 05:39 Pantoprazole Sodium 40 Mg/10 Ml Vial IVPUSH 40 mg DAILY@0630 ROCKY Administration Sodium Chloride 3 ml 11/16/20 08:00 11/17/20 08:28 0.9 % Sodium Chloride Flush 3 Ml Syringe IVFLUSH 3 ml QSHIFT ROCKY Administration Time Spent With Patient Time: Total time spent is greater than 50% in coordination of care (as documented) at patient's floor/unit and/or counseling patient: Time with patient: less than 15 minutes Procedures Date of Service Date of Service: 11/17/20 Quality Stroke Does the patient have a stroke diagnosis?: No VTE Prior VTE?: No VTE Risk Level:: Medical - moderate - high VTE Device Contraindication: N/A - Device Ordered VTE Drug Contraindication: N/A - Med Ordered
--- NOTE | 2020-11-17 11:44 | P.PNCA_ITS ---
Subjective Subjective Date of Service: 11/17/20 Interval history: Feels ok. No cardiac symptoms. Review of Systems Review of Systems Yes all other systems are reviewed and are negative Cardiovascular: Reports as per HPI, Reports no additional cardiovascular complaints, Denies acrocyanosis, Denies cool extremities, Denies painful fingertips, Denies chest pain, Denies chest pain at rest, Denies diaphoresis, Denies syncope, Denies irregular heart rhythm, Denies claudication, Denies leg edema, Denies lightheadedness, Denies palpitations and Denies dyspnea Respiratory: Denies dyspnea Gastrointestinal: Reports abdominal pain Denies syncope Endocrine: Denies palpitations Physical Exam Vital Signs: Last Vital Signs Temp 98.3 F 11/17/20 07:59 Pulse 106 H 11/17/20 07:59 Resp 20 11/17/20 07:59 BP 164/92 H 11/17/20 07:59 Pulse Ox 95 11/17/20 07:59 Body Mass Index 22.0 Const General: cooperative and no acute distress [facility] Other: Unremarkable Neck Neck: Yes normal visual inspection Chest Chest palpation & inspection: normal inspection of the chest Resp Auscultation: clear to auscultation bilaterally, no crackles and no wheezes Cardio Jugular venous distension: no JVD Palpation: normal PMI Heart sounds: S1 normal heart sound present, S2 normal heart sound present, no gallops, no murmurs and no rubs GI Palpation (GI): Soft to palpation Back/Spine/Pelvis Other: unremarkable Skin General skin exam: no rashes or lesions noted Neuro Cranial nerves: Yes Other cranial nerve findings present Extrem General: Yes no clubbing, cyanosis or edema Psych Mental Status: other Results Labs and Meds Result diagrams: 11/17/20 05:50 11/17/20 05:50 Lab results: Laboratory Results - last 24 hr 11/17/20 11/17/20 11/17/20 05:50 05:50 05:50 WBC 15.1 H RBC 3.79 L Hgb 12.0 L Hct 36.1 L MCV 95.3 MCH 31.7 MCHC 33.2 RDW 13.2 Plt Count 311 MPV 10.3 Immature Gran % (Auto) Cancelled Neut % (Auto) Cancelled Lymph % (Auto) Cancelled [place] % (Auto) Cancelled Eos % (Auto) Cancelled Baso % (Auto) Cancelled Lymph # (Auto) Cancelled [place] # (Auto) Cancelled Eos # (Auto) Cancelled Baso # (Auto) Cancelled Abs Immat Gran (auto) Cancelled Absolute Neuts (auto) Cancelled Absolute Nucleated RBC 0.000 Nucleated RBC % (auto) 0.0 Neutrophils % (Manual) 20 L Band Neutrophils % 69 H Lymphocytes % (Manual) 3 L Monocytes % (Manual) 6 Metamyelocytes % 2 Abs Neuts (Manual) 13.4 H Lymphocytes # (Manual) 0.5 L Monocytes # (Manual) 0.9 Metamyelocytes # 0.3 Toxic Vacuolation PRESENT Platelet Estimate NORMAL Plt Morphology Comment NORMAL RBC Morphology NOTED Acanthocytes (Spur) 3+ (>5) Sodium 143 Potassium 4.6 Chloride 110 H Carbon Dioxide 17 L Anion Gap 21 H BUN 72 H Creatinine 2.49 H Estim Creat Clear Calc 21.3 Estimated GFR 25 Random Glucose 92 Calcium 8.5 D B-Natriuretic Peptide 894 H Imaging Radiologist's impression: Impressions Chest X-Ray 11/16/20 11:39 IMPRESSION: * The tip of the NG tube overlies the right lower lobe. Recommend repositioning. * There is consolidation of the right middle lobe. * Persistently dilated small bowel loops are observed within the abdomen. The critical test result was discussed with Dr. Gayatri Thompson at 12:18 PM on 11/16/2020 and it was ascertained that the content and the importance of the findings was understood at the time of the direct communication. Chest X-Ray 11/16/20 12:53 IMPRESSION: Gastric tube has been adjusted now properly passing below the diaphragm into the stomach. Exam otherwise unchanged, infiltrates/atelectasis at right lung base. Dilated bowel loops under the diaphragm. Progress Note: A&P Assessment and plan (1) Atrial tachycardia: Status: Acute (2) Atrial arrhythmia: Status: Acute (3) PAC (premature atrial contraction): Status: Acute (4) Small bowel obstruction: Status: Acute (5) Essential hypertension: Status: Acute (6) Acute renal failure: Status: Acute Assessment and Plan: High sensitivity troponin slightly elevated at 30. First set was 16. Cardiac BNP is 425. Baseline creatinine is 1.17. Admission creatinine is 3.03. Now improved to 0.79. Possibly all prerenal. Agree with holding PATI inhibitors. Hydration. On telemetry, he had atrial tachycardia episodes, going up to 160/min. No overt atrial fibrillation. Resume PO Atenolol that he takes at home when able. Will follow. Fall Risk Details Current Medications: Current Medications Generic Name Dose Route Start Last Admin Trade Name Freq PRN Reason Stop Dose Admin Acetaminophen 650 mg 11/16/20 05:21 Acetaminophen Supp 650 Mg Supp.Rect [place] Q6H PRN Pain, Mild (Pain Scale 1-3) Heparin Sodium (Porcine) 5,000 unit 11/16/20 06:00 11/17/20 05:38 Heparin Sodium,Porcine 5,000 Unit/Ml Vial SUBCUT 5,000 unit Q8H ROCKY Administration Hydromorphone HCl 0.5 mg 11/16/20 05:57 11/17/20 06:19 Hydromorphone Hcl 0.5 Mg/0.5 Ml Syringe IVPUSH 0.5 mg Q4H PRN Administration Breakthrough Pain Piperacillin Sod/Tazobactam 50 mls @ 100 mls/hr 11/16/20 12:00 11/17/20 11:16 Sod 2.25 gm/ Sodium Chloride IV 100 mls/hr Q6H ROCKY Administration Lactated Ringer's 1,000 mls @ 125 mls/hr 11/17/20 08:00 11/17/20 08:28 Lr IVCONT 125 mls/hr .Q8H ROCKY Administration Labetalol HCl 10 mg 11/16/20 05:21 11/16/20 06:05 Labetalol Hcl 100 Mg/20 Ml Vial IVPUSH 10 mg Q4H PRN Administration BP>160/90 Multi-Ingred Medicated Throat [place] 1 spray 11/17/20 11:07 Throat [place], Medicated 20 Ml Bottle MUCOUS MEM Q2H PRN Sore Throat Pantoprazole Sodium 40 mg 11/16/20 06:30 11/17/20 05:39 Pantoprazole Sodium 40 Mg/10 Ml Vial IVPUSH 40 mg DAILY@0630 ROCKY Administration Sodium Chloride 3 ml 11/16/20 08:00 11/17/20 08:28 0.9 % Sodium Chloride Flush 3 Ml Syringe IVFLUSH 3 ml QSHIFT ROCKY Administration Time Spent With Patient Time: Total time spent is greater than 50% in coordination of care (as documented) at patient's floor/unit and/or counseling patient: Time with patient: less than 15 minutes Progress Note: Quality Stroke Does the patient have a stroke diagnosis?: No Procedures Date of Service Date of Service: 11/17/20
[2020-11-17] MEDS: Labetalol HCL 100 MG/20 ML VIAL 10 MG IVPUSH (15:26)
--- NOTE | 2020-11-17 22:31 | PC.NURSE ---
Pt had short nonsustained run of atrial tach approx 7.3 seconds in duration. Asymptomatic, RN at bedside assisting pt OOB to use urinal. No dizziness or SOB reported. MD notified. No new orders at this time.
[2020-11-18] VITALS (10 sets, daily range): BP systolic 124–170; BP diastolic 59–82; PULSE 53–115; RESP 15–19; TEMP 36.2–36.9; O2SAT 91–95
--- NOTE | 2020-11-18 | ECG_ITS ---
Test Reason : Tachycardia Blood Pressure : / mmHG Vent. Rate : 090 BPM Atrial Rate : 090 BPM P-R Int : 168 ms QRS Dur : 086 ms QT Int : 370 ms P-R-T Axes : 065 -67 -15 degrees QTc Int : 452 ms Sinus rhythm with occasional Premature ventricular complexes and Premature atrial complexes Left axis deviation Anterior infarct , age undetermined Anterolateral T wave inversions- consider ischemia Abnormal ECG When compared to the previous EKG of anterolateral T wave changes Referred By: Carol Spence Electronically Signed By:Rolando Lou
[2020-11-18] MEDS: Lactated Ringers 1,000 ML 125 ML IVCONT ×3 (01:48→21:34)
[2020-11-18 05:01] LABS: Hematocrit 30.7 % (42-52); Hemoglobin 10.1 g/dl (14.0-18.0); Mean Corpuscular HGB Conc 32.9 g/dl (31.0-36.0); Mean Corpuscular Hemoglobin 31.1 pg (27.0-33.0); Mean Corpuscular Volume 94.5 fL (80-98); Mean Platelet Volume 10.1 fL (9.4-12.4); Platelet Count 276 X10*3/uL (160-400); Red Blood Count 3.25 X10*6/uL (4.60-5.80); Red Cell Distribution Width 13.4 % (11.0-16.0); White Blood Count 16.3 X10*3/uL (4.8-10.8)
[2020-11-18] MEDS: Piperacillin Sodium/Tazobactam 2.25 GM in 0.9 % Sodium Chloride 50 ML IV ×3 (05:16→18:51)
[2020-11-18] MEDS: Pantoprazole Sodium 40 MG/10 ML VIAL IVPUSH (05:16)
[2020-11-18] MEDS: Heparin Sodium,Porcine 5,000 UNIT/ML VIAL 5000 UNIT SUBCUT ×3 (05:16→21:37)
[2020-11-18 05:30] LABS: Anion Gap 17 (12-20); Blood Urea Nitrogen 55 mg/dL (9-16); Calcium 8.1 mg/dL (8.4-10.2); Carbon Dioxide 17 mmol/L (22-29); Chloride 115 mmol/L (96-108); Creatinine Clr Calc Pharmacy 30.2; Estimated Glomerular Filt Rate 37; Glucose Random 84 mg/dL (60-115); Potassium 3.9 mmol/L (3.3-5.1); Sodium 145 mmol/L (135-145)
--- NOTE | 2020-11-18 07:30 | CA_ITS ---
Transthoracic Echocardiogram Patient (Last, First, Middle): Josh Abdul W Gender: Male Date of : 1940 Age: 80 Procedure Date: 11/18/2020 Procedure Type: Transthoracic Echocardiogram Location: [facility] [place] Height: 170.18 cm Weight: 63.5 kg BSA: 1.74 m2 Heart Rate: bpm BP: 170 / 68 mmHg Intensive Care Nurse: Referring MD: Nolan Butler MD Symptoms: new afib Study Quality: Fair ECG Rhythm: Atrial Fibrillation Conclusions: - Normal left ventricular size, thickness, and systolic function. The visually estimated ejection fraction is between 55-60%. - The entire apex is dyskinetic. - Normal right ventricular cavity size and systolic function. - Moderately elevated right atrial pressure. Severe pulmonary hypertension is present. 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 Findings Procedure Information Contrast agent, definity, is being given per protocol without apparent complications. The patient receives contrast. Left Ventricle Normal left ventricular size, thickness, and systolic function. The visually estimated ejection fraction is between 55-60%. There is evidence of regional wall motion abnormalities. Abnormal diastolic function is noted. Spectral Doppler is indicative of a pseudonormal filling pattern. E/E prime ratio is between 8 and 15 consistent with indeterminate filling pressures. Wall Motion Rest Echo Findings The entire apex is dyskinetic. Right Ventricle Normal right ventricular cavity size and systolic function. Atria Left atrium is [id number] dilated. Aortic Valve There is a normal trileaflet aortic valve. There is mild thickening of the aortic valve. There is no aortic valve stenosis. There is no aortic valve regurgitation. Mitral Valve There is mild mitral annular calcification. There is mild mitral valve regurgitation. There is no mitral valve stenosis. Pulmonic Valve The pulmonic valve is likely normal. Tricuspid Valve Normal tricuspid valve structure and function. There is trace tricuspid valve regurgitation. Moderately elevated right atrial pressure. Severe pulmonary hypertension is present. Great Vessels The pulmonary artery was not well visualized. There is mild dilatation of the ascending aorta measuring 4.10 cm. Venous The inferior vena cava is normal in size and collapses less than 50% with inspiration. Pericardium/Pleural There is no evidence of pericardial effusion. Prior Study Comparison No prior study available for comparison. Measurements 2D Linear Measurements IVSd: 0.86 0.6-0.9/0.6-1.0 cm LVIDd: 5.10 3.9-5.3/4.2-5.9 cm LVIDd Index: 2.93 2.4-3.2/2.2-3.1 cm/m2 LVIDs: 3.07 2.0-3.6 cm LVPWd: 0.93 0.7-1.1 cm Ao Root: 3.50 2.1-3.5 cm LA Diam: 5.20 2.7-3.8/3.0-4.0 cm LAIDs Index: 2.99 1.5-2.3 cm/m2 LV Mass: 201.47 67-162/88-224 g LV Mass Index: 115.79 43-95/49-115 g/m2 LVOT Diam: 2.20 3.0+(-)1.3 cm 2D Systolic Function EF 4C: 38.50 >55% EF 2C: 38.80 >55% Mitral Valve MV Pk E: 0.98 MV PK A: 0.92 MV Decel Time: 240.00 E/A: 1.10 E'Lateral: 10.70 E'Medial: 5.44 E/E' Med: 18.00 E/E' Lat: 9.10 PHT: 70.00 MVA PHT: 3.14 Decel [place]: 4.08 Aortic Valve AoV Pk Jagdish: 1.25 AoV Mn Jagdish: 0.74 AoV VTI: 0.26 AoV Pk Grad: 6.00 Aov Mn Grad: 3.00 CRISTOFER Cont.VTI: 3.38 LVOT LVOT Pk Jagdish: 1.00 LVOT Mn Jagdish: 0.61 LVOT VTI: 0.23 LVOT Pk Grad: 4.00 LVOT Mn Grad: 2.00 LVOT Diam: 2.20 LVOT Area: 3.80 Diastolic Function MV Pk E: 0.98 MV Pk A: 0.92 E/A: 1.10 E'Medial: 5.44 E/E' Med: 18.00 E' Laterial: 10.70 E/E' Lat: 9.10 Tricuspid Valve TR Pk Jagdish: 3.72 TR Pk Grad: 55.00 RA Press: 15.00 RVSP: 60.00 Great Vessels Aorta Ao Root-2D: 3.50 2.0-3.7 cm Ao Asc: 4.10 2.1-3.4 cm Updated in Other Vendor System with Status of Final Rolando Lou MD electronically signed on 11/18/2020 1:53:27 PM with status of Final
--- NOTE | 2020-11-18 07:48 | P.PNNP_ITS ---
Subjective Subjective Date of Service: 11/18/20 Interval history: Follow up partial SBO NGT in place OOB to chair some discomfort from the NGT Physical Exam Vital Signs: Vital Signs: Last Vital Signs Temp 98.4 F 11/18/20 07:40 Pulse 81 11/18/20 07:40 Resp 16 11/18/20 07:40 BP 160/69 H 11/18/20 07:40 Pulse Ox 95 11/18/20 07:40 Body Mass Index 22.0 Const: General: cooperative, healthy appearing, no acute distress and alert Orientation/consciousness: patient oriented x3 HENMT: Other: Unremarkable Head: Yes normocephalic and Yes atraumatic Neck: Neck: Yes normal visual inspection, Yes trachea midline and Yes supple Chest: Chest palpation & inspection: normal inspection of the chest Resp: Effort & Inspection: normal respiratory effort Auscultation: clear to auscultation bilaterally, no crackles, no wheezes and diminished lung sounds on the right in the lower lung aparicio Cardio: Jugular venous distension: no JVD Palpation: normal PMI Rate: regular rate Rhythm: regular rhythm Heart sounds: S1 normal heart sound present, S2 normal heart sound present, no gallops, no murmurs and no rubs GI: Other: Distended but softer, nontender, bowel sounds active, no palpable masses Palpation (GI): Soft to palpation Rectal Exam - Male: Yes deferred Back/Spine/Pelvis: Other: unremarkable Skin: Other: Normal color, warm and dry General skin exam: no rashes or lesions noted Neuro: General: patient oriented x3 Cranial nerves: Yes Other cranial nerve findings present Extrem: General: Yes normal to inspection and Yes no clubbing, cyanosis or edema Psych: Mental Status: mental status grossly normal and other Objective Data Labs CBC & Chem 7: 11/18/20 04:25 11/18/20 04:25 Labs: Laboratory Results - last 24 hr 11/17/20 11/18/20 11/18/20 05:50 04:25 04:25 WBC 15.1 H 16.3 H RBC 3.79 L 3.25 L Hgb 12.0 L 10.1 L Hct 36.1 L 30.7 L MCV 95.3 94.5 MCH 31.7 31.1 MCHC 33.2 32.9 RDW 13.2 13.4 Plt Count 311 276 MPV 10.3 10.1 Immature Gran % (Auto) Cancelled Neut % (Auto) Cancelled Lymph % (Auto) Cancelled [place] % (Auto) Cancelled Eos % (Auto) Cancelled Baso % (Auto) Cancelled Lymph # (Auto) Cancelled [place] # (Auto) Cancelled Eos # (Auto) Cancelled Baso # (Auto) Cancelled Abs Immat Gran (auto) Cancelled Absolute Neuts (auto) Cancelled Absolute Nucleated RBC 0.000 0.000 Nucleated RBC % (auto) 0.0 0.0 Neutrophils % (Manual) 20 L Band Neutrophils % 69 H Lymphocytes % (Manual) 3 L Monocytes % (Manual) 6 Metamyelocytes % 2 Abs Neuts (Manual) 13.4 H Lymphocytes # (Manual) 0.5 L Monocytes # (Manual) 0.9 Metamyelocytes # 0.3 Toxic Vacuolation PRESENT Platelet Estimate NORMAL Plt Morphology Comment NORMAL RBC Morphology NOTED Acanthocytes (Spur) 3+ (>5) Sodium 145 Potassium 3.9 Chloride 115 H Carbon Dioxide 17 L Anion Gap 17 BUN 55 H Creatinine 1.76 H Estim Creat Clear Calc 30.2 Estimated GFR 37 Random Glucose 84 Calcium 8.1 L Microbiology Microbiology Results: Microbiology 11/16/20 03:12 Blood - Venous Blood Culture - Preliminary No growth after 48 hours. 11/16/20 03:10 Blood - Venous Blood Culture - Preliminary No growth after 48 hours. 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 Noted to have KATHLEEN and partial SBO. Partial SBO: Supportive care, possibly secondary to inflammatory vs neoplastic process NGT to wall suction IV fluids. Strict NPO. General surgery following Aspiration Pneumonia secondary to vomiting renally dosed Zosyn cultures neg after 24hrs KATHLEEN: Likely prerenal. trending down Continue IV fluids. Avoid nephrotoxins. Hold Star inhibitor. History of hypertension: avoid Star due to KATHLEEN Patient's home medication atenolol, benazepril, clonidine, nifedipine are on hold given strict NPO. Will give the patient on labetalol IV p.r.n. for high blood pressure. Time Spent With Patient Time: Total time spent is greater than 50% in coordination of care (as documented) at patient's floor/unit and/or counseling patient: Procedures Date of Service Date of Service: 11/18/20 Progress Note: Quality Stroke Does the patient have a stroke diagnosis?: No
[2020-11-18] MEDS: 0.9 % Sodium Chloride Flush 3 ML SYRINGE IVFLUSH (08:41)
--- NOTE | 2020-11-18 09:19 | P.CNGI_ITS ---
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 Abd CT scan on admission showed dilated small bowel with air-fluid levels, extending to the level of the terminal ileum with prominent wall thickening worrisome for lymphoma. This is likely partially obstructive given the overall appearance on the study. Prominent adjacent right lower quadrant lymph nodes are seen, increased from prior. Persistent somewhat prominent retroperitoneal lymph nodes. Repeat CT scan today showed improvement in SBO. Pt's symptoms can be due to malignancy, IBD or intestinal TB. RECOMMENDATIONS: 1. Clamp NG tube and start on clear liquid diet in the am. If he tolerates the diet without recurrent distension, slow colon prep with Golytely over 7-8 hrs. 2. He will be scheduled for colonoscopy (with AFB smear and culture) once he is able to tolerate the prep. 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 Complains of abdominal discomfort. Yesterday he had crackers and Gatorade; today he had like 3 episodes of nausea and vomiting did not eat or drink anything today. Denies any blood in the vomitus. Reports generalized weakness. Complains of pain in the right lateral chest wall, worsens with deep inspiration. Denies any blood in the vomitus. Denies any chest pain palpitations lightheadedness or dizziness. Denies any urinary symptoms. Denies any cough or sputum production. ER course: Per ER team patient noted to have mild diffuse abdominal tenderness; CT scan showed dilated small bowel loops near the terminal ileum-causing partial SBO and findings concerning for neoplasm likely lymphoma; lactate was within the normal limits, lab showed elevated creatinine and low bicarb. Given IV fluids. CT scan also concern for pneumonia. Admitted for further management Pt reports having sudden onset of a single episode of diarrhea a week ago followed by nausea, vomiting and abd pain with distension. He continued to have nausea and vomiting with minimal PO intake. He has not had a BM since a week and has not been passing gas. He was unable to eat anything on 11/15/2020 and had a while and vomiting Pal night at 23:00 associated with chills and shaking. Vomitus was dark green in color and tasted like bile. Bowel movements prior to onset of this episode were normal. Patient denies recent change in weight, black stools or rectal bleeding. Pt denies any abdominal surgeries in the past. Patient denies major cardiac or pulmonary problems, loud snoring or sleep apnea Denies being on chronic anticoagulation. Pt admits to smoking 1/2 PPD x 20 yrs and quitted 35 to 40 yrs ago Patient denies known family history of colon polyps, colon cancer or other GI malignancies. PAST COLONOSCOPY: 10/2004 Colonoscopy was performed by Dr Hartley and two small polyps were removed 06/2009 Repeat colonoscopy 2007 Biopsies obtained from RT inguinal LN showed: Benign lymph node with a sinus drainage reaction, marked lymph angiectasia and a few noncaseating granulomata. Special stains for acid-fast bacilli and fungi were negative. Review of Systems Constitutional: Constitutional: Reports chills, Denies fever(s), Denies headache(s), Reports poor appetite and Denies weight loss Eyes: Eyes: Denies eye discharge and Denies irritation ENT: Reports Normal hearing present, Denies dysphagia, Denies dizziness and Denies headache(s) Cardiovascular: Cardiovascular: Denies chest pain, Denies leg edema and Denies dyspnea on exertion Respiratory: Respiratory: Denies cough and Denies dyspnea on exertion Gastrointestinal: Gastrointestinal: Reports abdominal pain, Reports bloating, Denies change in bowel habits, Denies dysphagia, Denies heartburn, Reports nausea and Reports vomiting Genitourinary: Genitourinary: Denies dysuria Musculoskeletal: Musculoskeletal: Denies back pain and Denies arthralgias Integumentary/Breasts: Skin/Breast: Denies pruritus, Denies rash and Denies jaundice Neurologic: Reports Normal hearing present, Denies Abnormal speech present, Denies dizziness, Denies headache(s) and Denies seizure-like activity Psychiatric: Psychiatric: Denies anxiety, Denies depression and Denies panic attacks Endocrine: Endocrine: Denies cold intolerance, Denies flushing and Denies heat intolerance Hematologic/Lymphatic: Hematologic/Lymphatic: Denies easy bleeding and Denies easy bruising PMFSH Past Medical History Medical History (Updated 11/27/20 @ 12:53 by Gayatri Thompson NP) Arthritis Basal cell carcinoma Hiatal hernia HTN (hypertension) Hypothyroidism Lymphadenopathy Rosacea Family History Family History Father Heart disease Surgical History Surgical History Hx of biopsy Hx of colonoscopy Hx of tonsillectomy Hx of total knee replacement Social History Social History Household Members: Spouse Housing: House Alcohol intake: current Alcohol intake frequency: holidays/special occasions only Alcohol type: beer Patient Tobacco Use Status: Never used Tobacco Cigarette Packs Per Day: 0.5 service: Yes Current occupational status: retired Meds Allergies Allergy/AdvReac Type Severity Reaction Status Date / Time No Known Allergies Allergy Mild NONE Verified 11/16/20 02:59 Active Medications: Current Medications Generic Name Dose Route Start Last Admin Trade Name Freq PRN Reason Stop Dose Admin Acetaminophen 650 mg 11/16/20 05:21 Acetaminophen Supp 650 Mg Supp.Rect [place] Q6H PRN Pain, Mild (Pain Scale 1-3) Heparin Sodium (Porcine) 5,000 unit 11/16/20 06:00 11/18/20 05:16 Heparin Sodium,Porcine 5,000 Unit/Ml Vial SUBCUT 5,000 unit Q8H ROCKY Administration Hydromorphone HCl 0.5 mg 11/16/20 05:57 11/17/20 06:19 Hydromorphone Hcl 0.5 Mg/0.5 Ml Syringe IVPUSH 0.5 mg Q4H PRN Administration Breakthrough Pain Piperacillin Sod/Tazobactam 50 mls @ 100 mls/hr 11/16/20 12:00 11/18/20 05:55 Sod 2.25 gm/ Sodium Chloride IV Infused Q6H ROCKY Infusion Lactated Ringer's 1,000 mls @ 125 mls/hr 11/17/20 08:00 11/18/20 08:38 Lr IVCONT 0 mls/hr .Q8H ROCKY Infusion Labetalol HCl 10 mg 11/16/20 05:21 11/17/20 15:26 Labetalol Hcl 100 Mg/20 Ml Vial IVPUSH 10 mg Q4H PRN Administration BP>160/90 Multi-Ingred Medicated Throat [place] 1 spray 11/17/20 11:07 11/17/20 15:29 Throat [place], Medicated 20 Ml Bottle MUCOUS MEM 1 spray Q2H PRN Administration Sore Throat Pantoprazole Sodium 40 mg 11/16/20 06:30 11/18/20 05:16 Pantoprazole Sodium 40 Mg/10 Ml Vial IVPUSH 40 mg DAILY@0630 ROCKY Administration Sodium Chloride 3 ml 11/16/20 08:00 11/18/20 08:41 0.9 % Sodium Chloride Flush 3 Ml Syringe IVFLUSH 3 ml QSHIFT ROCKY Administration Home Medications Medication Instructions Recorded Confirmed Last Taken Type levothyroxine 1 tab PO DAILY 07/24/20 11/16/20 Unknown History omeprazole 1 cap PO DAILY 07/24/20 11/16/20 Unknown History Physical Exam Vital Signs: Vital Signs: Last Vital Signs Temp 98.4 F 11/18/20 07:40 Pulse 81 11/18/20 07:40 Resp 16 11/18/20 07:40 BP 160/69 H 11/18/20 07:40 Pulse Ox 95 11/18/20 07:40 Body Mass Index 22.0 Const: General: no acute distress and ill appearing Nutritional Appearance: average body habitus Orientation/consciousness: patient oriented x3 Limitations: no limitations HENMT: Head: Yes normal to inspection Ears: hearing grossly normal bilaterally Face and sinus: Yes other (NG tube in place) Mouth: Normal ora l and palatal mucosa present Eyes: Sclerae: sclerae normal Pupils: Equal, round and reactive pupils present Neck: Neck: Yes normal visual inspection Chest: Chest palpation & inspection: normal inspection of the chest Resp: Effort & Inspection: normal respiratory effort Auscultation: clear to auscultation bilaterally Cardio: Palpation: normal PMI Rate: regular rate Rhythm: regular rhythm Heart sounds: S1 normal heart sound present, S2 normal heart sound present and no murmurs GI: Inspection: Yes distended Palpation (GI): Soft to palpation, nontender and No hepatosplenomegaly present Auscultation: other (decreased bowel sounds) Rectal Exam - Male: Yes deferred Skin: General skin exam: no rashes or lesions noted Neuro: General: patient oriented x3, gait normal and moves all extremities Cranial nerves: Yes Equal, round and reactive pupils present and Yes Normal hearing present Speech: No Abnormal speech present Psych: Appearance: grossly normal Mental Status: mental status grossly normal Results Labs CBC & Chem 7: 11/28/20 06:06 11/29/20 05:30 Labs: Short CBC 11/18/20 Range/Units 04:25 WBC 16.3 H (4.8-10.8) X10*3/uL Hgb 10.1 L (14.0-18.0) g/dl Hct 30.7 L (42-52) % Plt Count 276 (160-400) X10*3/uL BMP 11/18/20 04:25 Sodium 145 Potassium 3.9 Chloride 115 H Carbon Dioxide 17 L BUN 55 H Creatinine 1.76 H Calcium 8.1 L Microbiology Microbiology Results: Microbiology 11/16/20 03:12 Blood - Venous Blood Culture - Preliminary No growth after 48 hours. 11/16/20 03:10 Blood - Venous Blood Culture - Preliminary No growth after 48 hours. Procedures Date of Service Date of Service: 11/18/20
[2020-11-18] MEDS: Throat Lozenge, Medicated LOZENGE 1 LOZENGE MUCOUS MEM ×3 (11:12→21:37)
--- NOTE | 2020-11-18 12:14 | P.PNIM_ITS ---
Subjective Subjective Date of Service: 11/18/20 Interval History: Follow up SBO NGT in place nausea today repeat CT scan and clamp NGT Physical Exam Vital Signs: Vital Signs: Last Vital Signs Temp 98.1 F 11/18/20 12:00 Pulse 66 11/18/20 12:00 Resp 19 11/18/20 12:00 BP 160/59 H 11/18/20 12:00 Pulse Ox 95 11/18/20 12:00 Body Mass Index 22.0 Appearing in no acute distress lung sounds are clear to auscultation heart regular rate rhythm, clear S1, S2 positive bowel sounds, abdomen is soft, nontender neuro patient is alert x3, no focal deficits NGT in place Objective Data Current Medications Generic Name Dose Route Start Last Admin Trade Name Freq PRN Reason Stop Dose Admin Acetaminophen 650 mg 11/16/20 05:21 Acetaminophen Supp 650 Mg Supp.Rect [place] Q6H PRN Pain, Mild (Pain Scale 1-3) Benzocaine 1 lozenge 11/18/20 10:35 11/18/20 11:12 Throat Lozenge, Medicated Lozenge MUCOUS MEM 1 lozenge Q2H PRN Administration Sore Throat Heparin Sodium (Porcine) 5,000 unit 11/16/20 06:00 11/18/20 05:16 Heparin Sodium,Porcine 5,000 Unit/Ml Vial SUBCUT 5,000 unit Q8H ROCKY Administration Hydromorphone HCl 0.5 mg 11/16/20 05:57 11/17/20 06:19 Hydromorphone Hcl 0.5 Mg/0.5 Ml Syringe IVPUSH 0.5 mg Q4H PRN Administration Breakthrough Pain Piperacillin Sod/Tazobactam 50 mls @ 100 mls/hr 11/16/20 12:00 11/18/20 05:55 Sod 2.25 gm/ Sodium Chloride IV Infused Q6H ROCKY Infusion Lactated Ringer's 1,000 mls @ 125 mls/hr 11/17/20 08:00 11/18/20 09:22 Lr IVCONT 125 mls/hr .Q8H ROCKY Administration Labetalol HCl 10 mg 11/16/20 05:21 11/17/20 15:26 Labetalol Hcl 100 Mg/20 Ml Vial IVPUSH 10 mg Q4H PRN Administration BP>160/90 Multi-Ingred Medicated Throat [place] 1 spray 11/17/20 11:07 11/17/20 15:29 Throat [place], Medicated 20 Ml Bottle MUCOUS MEM 1 spray Q2H PRN Administration Sore Throat Ondansetron HCl 4 mg 11/18/20 12:13 Ondansetron Hcl 4 Mg/2 Ml Vial IVPUSH Q8H PRN Nausea and Vomiting Pantoprazole Sodium 40 mg 11/16/20 06:30 11/18/20 05:16 Pantoprazole Sodium 40 Mg/10 Ml Vial IVPUSH 40 mg DAILY@0630 ROCKY Administration Sodium Chloride 3 ml 11/16/20 08:00 11/18/20 08:41 0.9 % Sodium Chloride Flush 3 Ml Syringe IVFLUSH 3 ml QSHIFT ROCKY Administration Labs CBC & Chem 7: 11/18/20 04:25 11/18/20 04:25 Labs: Laboratory Results - last 24 hr 11/18/20 11/18/20 04:25 04:25 MCV 94.5 MCH 31.1 MCHC 32.9 RDW 13.4 Plt Count 276 MPV 10.1 Absolute Nucleated RBC 0.000 Nucleated RBC % (auto) 0.0 Anion Gap 17 Estim Creat Clear Calc 30.2 Estimated GFR 37 Random Glucose 84 Calcium 8.1 L Microbiology Microbiology Results: Microbiology 11/16/20 03:12 Blood - Venous Blood Culture - Preliminary No growth after 48 hours. 11/16/20 03:10 Blood - Venous Blood Culture - Preliminary No growth after 48 hours. 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 Noted to have KATHLEEN and partial SBO. Partial SBO. Supportive care, possibly secondary to inflammatory vs neoplastic process put out 100ml overnight in NGT NGT int suction IV fluids. Strict NPO. General surgery following, may need exp lap GI to evaluate, no colonoscopy untill he passes his bowels Aspiration Pneumonia secondary to vomiting renally dosed Zosyn cultures neg after 48hrs New onset Afib seen and evaluated by Cardiology, no evidence of atrial fibrillation echo showed the entire apex is dyskinetic. EF 55-60% severe pulmonary hypertension KATHLEEN. Likely prerenal, hypovolemia. trending down Continue IV fluids. Avoid nephrotoxins. Hold Star inhibitor. Nephrology following Acidosis. Likely in the setting of KATHLEEN lactate within normal limits. IV fluids. Abdominal wall thickening. Question neoplasm. 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 Atypical in nature. Cycle enzymes. History of hypertension avoid Star due to KATHLEEN Patient's home medication atenolol, benazepril, clonidine, nifedipine are on hold given strict NPO. Will give the patient on labetalol IV p.r.n. for high blood pressure. DVT prophylaxis: Subcu heparin Code status: Full code Attending Dr. [place] Quality Stroke Does the patient have a stroke diagnosis?: No VTE Prior VTE?: No VTE Risk Level:: Medical - moderate - high VTE Device Contraindication: N/A - Device Ordered VTE Drug Contraindication: N/A - Med Ordered
[2020-11-18] MEDS: ondansetron HCL 4 MG/2 ML VIAL IVPUSH ×2 (12:26→21:37)
--- NOTE | 2020-11-18 13:28 | PM.PNGS ---
Subjective Subjective Date of Service: 11/18/20 Interval history: Feels much better Denies abdominal pain Passing flatus well Physical Exam Vital Signs: Vital Signs: Last Vital Signs Temp 98.1 F 11/18/20 12:00 Pulse 66 11/18/20 12:00 Resp 19 11/18/20 12:00 BP 160/59 H 11/18/20 12:00 Pulse Ox 95 11/18/20 12:00 Body Mass Index 22.0 Laboratory Results - last 24 hr 11/18/20 11/18/20 04:25 04:25 WBC 16.3 H RBC 3.25 L Hgb 10.1 L Hct 30.7 L MCV 94.5 MCH 31.1 MCHC 32.9 RDW 13.4 Plt Count 276 MPV 10.1 Absolute Nucleated RBC 0.000 Nucleated RBC % (a uto) 0.0 Sodium 145 Potassium 3.9 Chloride 115 H Carbon Dioxide 17 L Anion Gap 17 BUN 55 H Creatinine 1.76 H Estim Creat Clear Calc 30.2 Estimated GFR 37 Random Glucose 84 Calcium 8.1 L Const: General: comfortable and no acute distress Resp: Effort & Inspection: normal respiratory effort Cardio: Rhythm: regular rhythm GI: Palpation (GI): Soft to palpation, not firm, nontender and no guarding Progress Note: A&P Assessment and plan (1) Small bowel obstruction: Status: Acute Assessment and Plan: Likely from a cecal pathology - inflammatory versus neoplastic Looks well Passing flatus Abdomen soft Nontender Awaiting colonoscopy to evaluate cecum - seen by GI Explained plan to patient and family at bedside NG tube in for now Fall Risk Details Current Medications: Current Medications Generic Name Dose Route Start Last Admin Trade Name Carl PRN Reason Stop Dose Admin Acetaminophen 650 mg 11/16/20 05:21 Acetaminophen Supp 650 Mg Supp.Rect [place] Q6H PRN Pain, Mild (Pain Scale 1-3) Benzocaine 1 lozenge 11/18/20 10:35 11/18/20 11:12 Throat Lozenge, Medicated Lozenge MUCOUS MEM 1 lozenge Q2H PRN Administration Sore Throat Heparin Sodium (Porcine) 5,000 unit 11/16/20 06:00 11/18/20 12:26 Heparin Sodium,Porcine 5,000 Unit/Ml Vial SUBCUT 5,000 unit Q8H ROCKY Administration Hydromorphone HCl 0.5 mg 11/16/20 05:57 07/11/21 06:19 Hydromorphone Hcl 0.5 Mg/0.5 Ml Syringe IVPUSH 0.5 mg Q4H PRN Administration Breakthrough Pain Piperacillin Sod/Tazobactam 50 mls @ 100 mls/hr 11/16/20 12:00 11/18/20 12:26 Sod 2.25 gm/ Sodium Chloride IV 100 mls/hr Q6H ROCKY Administration Lactated Ringer's 1,000 mls @ 125 mls/hr 11/17/20 08:00 11/18/20 12:27 Lr IVCONT 0 mls/hr .Q8H ROCKY Infusion Labetalol HCl 10 mg 11/16/20 05:21 11/17/20 15:26 Labetalol Hcl 100 Mg/20 Ml Vial IVPUSH 10 mg Q4H PRN Administration BP>160/90 Multi-Ingred Medicated Throat [place] 1 spray 11/17/20 11:07 11/17/20 15:29 Throat [place], Medicated 20 Ml Bottle MUCOUS MEM 1 spray Q2H PRN Administration Sore Throat Ondansetron HCl 4 mg 11/18/20 12:13 11/18/20 12:26 Ondansetron Hcl 4 Mg/2 Ml Vial IVPUSH 4 mg Q8H PRN Administration Nausea and Vomiting Pantoprazole Sodium 40 mg 11/16/20 06:30 11/18/20 05:16 Pantoprazole Sodium 40 Mg/10 Ml Vial IVPUSH 40 mg DAILY@0630 ROCKY Administration Sodium Chloride 3 ml 11/16/20 08:00 11/18/20 08:41 0.9 % Sodium Chloride Flush 3 Ml Syringe IVFLUSH 3 ml QSHIFT ROCKY Administration Time Spent With Patient Time: Total time spent is greater than 50% in coordination of care (as documented) at patient's floor/unit and/or counseling patient: Time with patient: 15 - 24 minutes Procedures Date of Service Date of Service: 11/18/20 Quality Stroke Does the patient have a stroke diagnosis?: No VTE Prior VTE?: No VTE Risk Level:: Medical - moderate - high VTE Device Contraindication: N/A - Device Ordered VTE Drug Contraindication: N/A - Med Ordered
--- NOTE | 2020-11-18 13:36 | PM.PNCARD ---
Subjective Subjective Date of Service: 11/18/20 Interval history: Saying he is passing gas now. Still has NG in place. Denies palpitations. Telemetry has shown over right episodes of atrial arrhythmia. Physical Exam Vital Signs: Last Vital Signs Temp 98.1 F 11/18/20 12:00 Pulse 66 11/18/20 12:00 Resp 19 11/18/20 12:00 BP 160/59 H 11/18/20 12:00 Pulse Ox 95 11/18/20 12:00 Body Mass Index 22.0 GENERAL APPEARANCE: in no acute distress, pleasant. NG tube in place. NECK: no carotid bruit, no jugular venous distention. SKIN: no suspicious lesions, warm and dry. HEART: no murmurs, regular rate and rhythm. LUNGS: clear to auscultation bilaterally. ABDOMEN: soft, nontender. Bowel sounds positive EXTREMITIES: no edema. PERIPHERAL PULSES: equal. NEUROLOGIC: No gross deficits, AAO X 3 Results Labs and Meds Result diagrams: 11/18/20 04:25 11/18/20 04:25 Lab results: Laboratory Results - last 24 hr 11/18/20 11/18/20 04:25 04:25 WBC 16.3 H RBC 3.25 L Hgb 10.1 L Hct 30.7 L MCV 94.5 MCH 31.1 MCHC 32.9 RDW 13.4 Plt Count 276 MPV 10.1 Absolute Nucleated RBC 0.000 Nucleated RBC % (auto) 0.0 Sodium 145 Potassium 3.9 Chloride 115 H Carbon Dioxide 17 L Anion Gap 17 BUN 55 H Creatinine 1.76 H Estim Creat Clear Calc 30.2 Estimated GFR 37 Random Glucose 84 Calcium 8.1 L Progress Note: A&P Assessment and plan (1) Atrial tachycardia: Status: Acute (2) Essential hypertension: Status: Acute (3) Cardiomyopathy: Status: Acute Assessment and Plan: Pleasant 80-year-old gentleman presenting for small bowel obstruction and acute renal failure. His creatinine is improved with IV hydration. He is passing gas and has bowel sounds on examination. He is improving with conservative management. He had episode of atrial arrhythmia likely atrial tachycardia on telemetry. He has been asymptomatic. Echocardiography interestingly his showing apical dyskinesis with differentials of tak[place]ub[place] versus old TX. 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 Currently has no symptoms. Add carvedilol 3.125 mg twice a day. Would not resume atenolol. Once he has recovered he may need ischemic evaluation. Severe pulmonary hypertension on echocardiography. Would look into this more as he improves. Thank you for allowing me to participate in the care of your patient. Please feel free to contact me if you have any questions. Fall Risk Details Current Medications: Current Medications Generic Name Dose Route Start Last Admin Trade Name Freq PRN Reason Stop Dose Admin Acetaminophen 650 mg 11/16/20 05:21 Acetaminophen Supp 650 Mg Supp.Rect [place] Q6H PRN Pain, Mild (Pain Scale 1-3) Benzocaine 1 lozenge 11/18/20 10:35 11/18/20 11:12 Throat Lozenge, Medicated Lozenge MUCOUS MEM 1 lozenge Q2H PRN Administration Sore Throat Heparin Sodium (Porcine) 5,000 unit 11/16/20 06:00 11/18/20 12:26 Heparin Sodium,Porcine 5,000 Unit/Ml Vial SUBCUT 5,000 unit Q8H ROCKY Administration Hydromorphone HCl 0.5 mg 11/16/20 05:57 11/17/20 06:19 Hydromorphone Hcl 0.5 Mg/0.5 Ml Syringe IVPUSH 0.5 mg Q4H PRN Administration Breakthrough Pain Piperacillin Sod/Tazobactam 50 mls @ 100 mls/hr 11/16/20 12:00 11/18/20 12:26 Sod 2.25 gm/ Sodium Chloride IV 100 mls/hr Q6H ROCKY Administration Lactated Ringer's 1,000 mls @ 125 mls/hr 11/17/20 08:00 11/18/20 12:27 Lr IVCONT 0 mls/hr .Q8H ROCKY Infusion Labetalol HCl 10 mg 11/16/20 05:21 11/17/20 15:26 Labetalol Hcl 100 Mg/20 Ml Vial IVPUSH 10 mg Q4H PRN Administration BP>160/90 Multi-Ingred Medicated Throat [place] 1 spray 11/17/20 11:07 11/17/20 15:29 Throat [place], Medicated 20 Ml Bottle MUCOUS MEM 1 spray Q2H PRN Administration Sore Throat Ondansetron HCl 4 mg 11/18/20 12:13 11/18/20 12:26 Ondansetron Hcl 4 Mg/2 Ml Vial IVPUSH 4 mg Q8H PRN Administration Nausea and Vomiting Pantoprazole Sodium 40 mg 11/16/20 06:30 11/18/20 05:16 Pantoprazole Sodium 40 Mg/10 Ml Vial IVPUSH 40 mg DAILY@0630 ROCKY Administration Sodium Chloride 3 ml 11/16/20 08:00 11/18/20 08:41 0.9 % Sodium Chloride Flush 3 Ml Syringe IVFLUSH 3 ml QSHIFT ROCKY Administration Time Spent With Patient Time: Total time spent is greater than 50% in coordination of care (as documented) at patient's floor/unit and/or counseling patient: Time with patient: 25 - 35 minutes Progress Note: Quality Stroke Does the patient have a stroke diagnosis?: No Procedures Date of Service Date of Service: 11/18/20
[2020-11-18] MEDS: carvediloL 3.125 MG TABLET PO ×2 (13:54→21:35)
[2020-11-18] MEDS: Melatonin 3 MG TABLET 6 MG PO (21:36)
[2020-11-18 21:48] LABS: Anion Gap 23 (12-20); Blood Urea Nitrogen 47 mg/dL (9-16); Calcium 8.5 mg/dL (8.4-10.2); Carbon Dioxide 11 mmol/L (22-29); Chloride 116 mmol/L (96-108); Creatinine Clr Calc Pharmacy 31.6; Estimated Glomerular Filt Rate 40; Glucose Random 97 mg/dL (60-115); Magnesium 2.2 mg/dL (1.6-2.6); Potassium 4.2 mmol/L (3.3-5.1); Sodium 146 mmol/L (135-145)
[2020-11-18] MEDS: Metoprolol Tartrate 5 MG/5 ML VIAL IVPUSH (22:52)
[2020-11-19] VITALS (8 sets, daily range): BP systolic 116–159; BP diastolic 64–87; PULSE 65–102; RESP 18–20; TEMP 36.1–36.6; O2SAT 95–97
--- NOTE | 2020-11-19 | ECG_ITS ---
Test Reason : CARDIOMYOPATHY Blood Pressure : / mmHG Vent. Rate : 099 BPM Atrial Rate : 099 BPM P-R Int : 174 ms QRS Dur : 088 ms QT Int : 396 ms P-R-T Axes : 080 -68 253 degrees QTc Int : 508 ms Sinus rhythm with frequent Premature ventricular complexes and Premature atrial complexes Left axis deviation Inferior infarct (cited on or before 16-NOV-2020) Anterior infarct (cited on or before 16-NOV-2020) T wave abnormality, consider lateral ischemia Prolonged QT Abnormal ECG When compared with ECG of 18-NOV-2020 21:21, anterolateral T wave inversions - consider ischemia Referred By: Rolando Lou Electronically Signed By:Rolando Lou
[2020-11-19] MEDS: Piperacillin Sodium/Tazobactam 2.25 GM in 0.9 % Sodium Chloride 50 ML IV ×4 (00:50→18:06)
[2020-11-19] MEDS: Pantoprazole Sodium 40 MG/10 ML VIAL IVPUSH (06:12)
[2020-11-19] MEDS: Heparin Sodium,Porcine 5,000 UNIT/ML VIAL 5000 UNIT SUBCUT ×3 (06:12→21:11)
[2020-11-19] MEDS: Lactated Ringers 1,000 ML 125 ML IVCONT (06:15)
[2020-11-19 09:19] LABS: Anion Gap 21 (12-20); Blood Urea Nitrogen 55 mg/dL (9-16); Calcium 8.6 mg/dL (8.4-10.2); Carbon Dioxide 14 mmol/L (22-29); Chloride 117 mmol/L (96-108); Estimated Glomerular Filt Rate 36; Glucose Random 127 mg/dL (60-115); Potassium 4.3 mmol/L (3.3-5.1); Sodium 148 mmol/L (135-145)
[2020-11-19 09:27] LABS: PEU-Protein Creat Ratio Rand 1.742 (0.022-0.128); PEU-Rand. Prot/Creat Ratio 1742 mg/g creat (22-128); PEU-Random Ur. Gamma Globulin 26 %; PEU-Random Urine A1 Globulin 2 %; PEU-Random Urine A2 Globulin 10 %; PEU-Random Urine Albumin 44 %; PEU-Random Urine Beta Globulin 18 %; PEU-Random Urine Creatinine 97 mg/dL (20-320); PEU-Random Urine Protein 169 mg/dL (5-25)
[2020-11-19] MEDS: Throat Lozenge, Medicated LOZENGE 1 LOZENGE MUCOUS MEM ×2 (10:41→14:30)
[2020-11-19] MEDS: 0.9 % Sodium Chloride Flush 3 ML SYRINGE IVFLUSH (10:42)
[2020-11-19] MEDS: carvediloL 3.125 MG TABLET PO ×2 (10:42→21:10)
[2020-11-19] MEDS: Dextrose 5 % 1,000 ML 100 ML IVCONT (11:22)
[2020-11-19 11:28] LABS: PES - Abn Protein Band 1 0.5 g/dL (NONE DETECTED); Prot Elec - Albumin 3.2 g/dL (3.8-4.8); Prot Elec - Alpha1 0.7 g/dL (0.2-0.3); Prot Elec - Alpha2 0.9 g/dL (0.5-0.9); Prot Elec - Beta 1 0.4 g/dL (0.4-0.6); Prot Elec - Beta 2 0.4 g/dL (0.2-0.5); Prot Elec - Gamma 1.2 g/dL (0.8-1.7); Prot Elec - Total Protein 6.7 g/dL (6.1-8.1)
--- NOTE | 2020-11-19 11:56 | PM.PNCARD ---
Subjective Subjective Date of Service: 11/19/20 Interval history: Improving from small-bowel obstruction point of view. NG tube will be removed today. Echocardiography has showed apical dyskinesis which was explained to the patient and son. Physical Exam Vital Signs: Last Vital Signs Temp 97 F 11/19/20 11:06 Pulse 87 11/19/20 11:06 Resp 20 11/19/20 11:06 BP 150/87 H 11/19/20 11:06 Pulse Ox 96 11/19/20 11:06 Body Mass Index 22.0 GENERAL APPEARANCE: in no acute distress, pleasant. NG tube in place. NECK: no carotid bruit, no jugular venous distention. SKIN: no suspicious lesions, warm and dry. HEART: no murmurs, regular rate and rhythm. LUNGS: clear to auscultation bilaterally. Diminished at bases. ABDOMEN: soft, nontender. Bowel sounds positive EXTREMITIES: no edema. PERIPHERAL PULSES: equal. NEUROLOGIC: No gross deficits, AAO X 3 Results Labs and Meds Result diagrams: 11/18/20 04:25 11/19/20 08:49 Lab results: Laboratory Results - last 24 hr 11/17/20 11/17/20 11/18/20 08:05 Unknown 20:58 Sodium 146 H Potassium 4.2 Chloride 116 H Carbon Dioxide 11 L Anion Gap 23 H BUN 47 H Creatinine 1.68 H Estim Creat Clear Calc 31.6 Estimated GFR 40 Random Glucose 97 Calcium 8.5 Magnesium 2.2 Total Protein (PEP) 6.7 Albumin (PEP) 3.2 L Rwphr-9-Pymuyxnph 0.7 H Bbexw-1-Rtmlyflam 0.9 Hqze-2-Oceoshha 0.4 Afwd-9-Zuwicvgr 0.4 Gamma Globulins 1.2 Abnorm Protein Band 1 0.5 H PEP Interpretation SEE NOTE U [place] Prot/Creat Ratio 1.742 H Ur Creatinine mg/dL 97 U Total Protein mg/dL 169 H Protein/Creatinin Ratio 1742 H Urine Albumin (%) 44 U Iuhgl-5-Fjddvuyd (%) 2 U Ymtts-2-Nzuyolsx (%) 10 U Beta Globulin (%) 18 U Gamma Globulin (%) 26 U Abnormal Prot Band 1 SEE NOTE Urine PEP Interpret SEE NOTE 11/19/20 08:49 Sodium 148 H Potassium 4.3 Chloride 117 H Carbon Dioxide 14 L Anion Gap 21 H BUN 55 H Creatinine 1.83 H Estim Creat Clear Calc 29.0 Estimated GFR 36 Random Glucose 127 H Calcium 8.6 Magnesium Total Protein (PEP) Albumin (PEP) Aziup-4-Uophlynnn Kksti-3-Jngwaabtz Glon-8-Lkljwlef Lozw-7-Xscadrbs Gamma Globulins Abnorm Protein Band 1 PEP Interpretation U [place] Prot/Creat Ratio Ur Creatinine mg/dL U Total Protein mg/dL Protein/Creatinin Ratio Urine Albumin (%) U Tdxtd-7-Patrpdfk (%) U Rxzln-1-Bhaeoctm (%) U Beta Globulin (%) U Gamma Globulin (%) U Abnormal Prot Band 1 Urine PEP Interpret Imaging Radiologist's impression: Impressions Abdomen/Pelvis CT 11/18/20 14:34 IMPRESSION: Persistent circumferential wall thickening of the distal ileum and proximal cecum again concerning for a mass, particularly lymphoma. There are dilated fluid-filled loops of small bowel proximal to this region. Small bowel appears slightly less dilated than seen on 11/18/2020 exam. New nasogastric tube in the stomach. Enlarged pericolic and small bowel mesentery and retroperitoneal lymph nodes that appear unchanged. Large right middle and right lower lobe pneumonia and small right pleural effusion similar to previous exams. Bilateral renal cysts. Progress Note: A&P Assessment and plan (1) Cardiomyopathy: Status: Acute (2) Atrial tachycardia: Status: Acute (3) Essential hypertension: Status: Acute Assessment and Plan: Pleasant 80-year-old gentleman who presented with small-bowel obstruction acute kidney injury. He had atrial tachycardia and echocardiography has shown dyskinesis of the apical segments. Differentials include coronary artery disease versus takotsubo. He has no symptoms pointing to her coronary disease with no chest discomfort or shortness of breath preceding the presentation. His high sensitivity troponin levels were 16 and 30. Blood pressure is elevated. I think his carvedilol can be increased to 6.25 mg twice a day. If creatinine is stable then consider resuming the PATI-inhibitor. His NG tube is being removed because small bowel obstruction is improving. We will consider ischemic evaluation as outpatient. 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 He will need endoscopy and he can proceed with intermediate risk for perioperative cardiovascular complications. Thank you for allowing me to participate in the care of your patient. Please feel free to contact me if you have any questions. Fall Risk Details Current Medications: Current Medications Generic Name Dose Route Start Last Admin Trade Name Freq PRN Reason Stop Dose Admin Acetaminophen 650 mg 11/16/20 05:21 Acetaminophen Supp 650 Mg Supp.Rect IN Q6H PRN Pain, Mild (Pain Scale 1-3) Benzocaine 1 lozenge 11/18/20 10:35 11/19/20 10:41 Throat Lozenge, Medicated Lozenge MUCOUS MEM 1 lozenge Q2H PRN Administration Sore Throat Carvedilol 3.125 mg 11/18/20 13:45 11/19/20 10:42 Carvedilol 3.125 Mg Tablet PO 3.125 mg BID ROCKY Administration Protocol Heparin Sodium (Porcine) 5,000 unit 11/16/20 06:00 11/19/20 06:12 Heparin Sodium,Porcine 5,000 Unit/Ml Vial SUBCUT 5,000 unit Q8H ROCKY Administration Hydromorphone HCl 0.5 mg 11/16/20 05:57 11/17/20 06:19 Hydromorphone Hcl 0.5 Mg/0.5 Ml Syringe IVPUSH 0.5 mg Q4H PRN Administration Breakthrough Pain Piperacillin Sod/Tazobactam 50 mls @ 100 mls/hr 11/16/20 12:00 11/19/20 11:18 Sod 2.25 gm/ Sodium Chloride IV Infused Q6H ROCKY Infusion Dextrose 1,000 mls @ 100 mls/hr 11/19/20 10:00 11/19/20 11:22 D5w IVCONT 100 mls/hr .Q10H ROCKY Administration Melatonin 6 mg 11/18/20 20:58 11/18/20 21:36 Melatonin 3 Mg Tablet PO 6 mg BEDTIME PRN Administration Insomnia Multi-Ingred Medicated Throat [place] 1 spray 11/17/20 11:07 11/17/20 15:29 Throat [place], Medicated 20 Ml Bottle MUCOUS MEM 1 spray Q2H PRN Administration Sore Throat Ondansetron HCl 4 mg 11/18/20 12:13 11/18/20 21:37 Ondansetron Hcl 4 Mg/2 Ml Vial IVPUSH 4 mg Q8H PRN Administration Nausea and Vomiting Sodium Chloride 3 ml 11/16/20 08:00 11/19/20 10:42 0.9 % Sodium Chloride Flush 3 Ml Syringe IVFLUSH 3 ml QSHIFT ROCKY Administration Time Spent With Patient Time: Total time spent is greater than 50% in coordination of care (as documented) at patient's floor/unit and/or counseling patient: Time with patient: 25 - 35 minutes Progress Note: Quality Stroke Does the patient have a stroke diagnosis?: No Procedures Date of Service Date of Service: 11/19/20
--- NOTE | 2020-11-19 14:21 | P.PNIM_ITS ---
Subjective Subjective Date of Service: 11/19/20 Interval History: Follow up SBO NGT bothering him quite a bit today starting clears Physical Exam Vital Signs: Vital Signs: Last Vital Signs Temp 97 F 11/19/20 11:06 Pulse 87 11/19/20 11:06 Resp 20 11/19/20 11:06 BP 150/87 H 11/19/20 11:06 Pulse Ox 96 11/19/20 11:06 Body Mass Index 22.0 Appearing in no acute distress lung sounds are clear to auscultation NGT in place and clamped heart regular rate rhythm, clear S1, S2 positive bowel sounds, abdomen is soft, nontender neuro patient is alert x3, no focal deficits Objective Data Current Medications Generic Name Dose Route Start Last Admin Trade Name Freq PRN Reason Stop Dose Admin Acetaminophen 650 mg 11/16/20 05:21 Acetaminophen Supp 650 Mg Supp.Rect [place] Q6H PRN Pain, Mild (Pain Scale 1-3) Benzocaine 1 lozenge 11/18/20 10:35 11/19/20 10:41 Throat Lozenge, Medicated Lozenge MUCOUS MEM 1 lozenge Q2H PRN Administration Sore Throat Carvedilol 3.125 mg 11/18/20 13:45 11/19/20 10:42 Carvedilol 3.125 Mg Tablet PO 3.125 mg BID ROCKY Administration Protocol Heparin Sodium (Porcine) 5,000 unit 11/16/20 06:00 11/19/20 06:12 Heparin Sodium,Porcine 5,000 Unit/Ml Vial SUBCUT 5,000 unit Q8H ROCKY Administration Hydromorphone HCl 0.5 mg 11/16/20 05:57 11/17/20 06:19 Hydromorphone Hcl 0.5 Mg/0.5 Ml Syringe IVPUSH 0.5 mg Q4H PRN Administration Breakthrough Pain Piperacillin Sod/Tazobactam 50 mls @ 100 mls/hr 11/16/20 12:00 11/19/20 11:18 Sod 2.25 gm/ Sodium Chloride IV Infused Q6H ROCKY Infusion Dextrose 1,000 mls @ 100 mls/hr 11/19/20 10:00 11/19/20 11:22 D5w IVCONT 100 mls/hr .Q10H ROCKY Administration Melatonin 6 mg 11/18/20 20:58 11/18/20 21:36 Melatonin 3 Mg Tablet PO 6 mg BEDTIME PRN Administration Insomnia Multi-Ingred Medicated Throat [place] 1 spray 11/17/20 11:07 11/17/20 15:29 Throat [place], Medicated 20 Ml Bottle MUCOUS MEM 1 spray Q2H PRN Administration Sore Throat Ondansetron HCl 4 mg 11/18/20 12:13 11/18/20 21:37 Ondansetron Hcl 4 Mg/2 Ml Vial IVPUSH 4 mg Q8H PRN Administration Nausea and Vomiting Sodium Chloride 3 ml 11/16/20 08:00 11/19/20 10:42 0.9 % Sodium Chloride Flush 3 Ml Syringe IVFLUSH 3 ml QSHIFT ROCKY Administration Labs CBC & Chem 7: 11/18/20 04:25 11/19/20 08:49 Labs: Laboratory Results - last 24 hr 11/17/20 11/17/20 11/18/20 08:05 Unknown 20:58 Anion Gap 23 H Estim Creat Clear Calc 31.6 Estimated GFR 40 Random Glucose 97 Calcium 8.5 Magnesium 2.2 Total Protein (PEP) 6.7 Albumin (PEP) 3.2 L Hntod-2-Zismcivti 0.7 H Tbprf-8-Dtoeripln 0.9 Jxxx-1-Rajobxgw 0.4 Fofe-9-Mcvujyev 0.4 Gamma Globulins 1.2 Abnorm Protein Band 1 0.5 H PEP Interpretation SEE NOTE U [place] Prot/Creat Ratio 1.742 H Ur Creatinine mg/dL 97 U Total Protein mg/dL 169 H Protein/Creatinin Ratio 1742 H Urine Albumin (%) 44 U Ffjeb-3-Okoydepv (%) 2 U Wajcv-3-Jjuznpux (%) 10 U Beta Globulin (%) 18 U Gamma Globulin (%) 26 U Abnormal Prot Band 1 SEE NOTE Urine PEP Interpret SEE NOTE 11/19/20 08:49 Anion Gap 21 H Estim Creat Clear Calc 29.0 Estimated GFR 36 Random Glucose 127 H Calcium 8.6 Magnesium Total Protein (PEP) Albumin (PEP) Wwmpm-2-Yxmkfhmsf Vtngp-3-Bofywcgkz Acug-5-Hywdwhpf Ggng-7-Vvovmoji Gamma Globulins Abnorm Protein Band 1 PEP Interpretation U [place] Prot/Creat Ratio Ur Creatinine mg/dL U Total Protein mg/dL Protein/Creatinin Ratio Urine Albumin (%) U Xbuct-4-Rabqwmtj (%) U Omqrn-0-Xuptwfjz (%) U Beta Globulin (%) U Gamma Globulin (%) U Abnormal Prot Band 1 Urine PEP Interpret Microbiology Microbiology Results: Microbiology 11/16/20 03:12 Blood - Venous Blood Culture - Preliminary No growth after 48 hours. 11/16/20 03:10 Blood - Venous Blood Culture - Preliminary No growth after 48 hours. 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 Noted to have KATHLEEN and partial SBO. Partial SBO. Supportive care, possibly secondary to inflammatory vs neoplastic process low output NGT, clamp for now clear liquid diet, then colon prep if he does ok with clears D5W General surgery following, may need exp lap GI to evaluate, will need colonoscopy Hypernatremia. Likely from IV fluids changed to D5W check BMP tonight Aspiration Pneumonia secondary to vomiting renally dosed Zosyn cultures neg after 48hrs New onset Afib seen and evaluated by Cardiology, no evidence of atrial fibrillation echo showed the entire apex is dyskinetic. EF 55-60% severe pulmonary hypertension KATHLEEN. Likely prerenal, hypovolemia. trending down Avoid nephrotoxins. Hold Star inhibitor. Nephrology following Acidosis. Likely in the setting of KATHLEEN lactate within normal limits. IV fluids. Abdominal wall thickening. Question neoplasm. 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 Atypical in nature. Cycle enzymes. History of hypertension avoid Star due to KATHLEEN Patient's home medication atenolol, benazepril, clonidine, nifedipine are on hold given strict NPO. Will give the patient on labetalol IV p.r.n. for high blood pressure. DVT prophylaxis: Subcu heparin Code status: Full code Attending Dr. [place] Quality Stroke Does the patient have a stroke diagnosis?: No VTE Prior VTE?: No VTE Risk Level:: Medical - moderate - high VTE Device Contraindication: N/A - Device Ordered VTE Drug Contraindication: N/A - Med Ordered
--- NOTE | 2020-11-19 15:24 | P.PNGS_ITS ---
Subjective Subjective Date of Service: 11/20/20 Interval history: Had been passing flatus since yesterday denies any abdominal pain NG tube output had been minimal patient had wanted this removed Physical Exam Vital Signs: Vital Signs: Last Vital Signs Temp 97 F 11/19/20 11:06 Pulse 87 11/19/20 11:06 Resp 20 11/19/20 11:06 BP 150/87 H 11/19/20 11:06 Pulse Ox 96 11/19/20 11:06 Body Mass Index 22.0 Laboratory Results - last 24 hr 11/17/20 11/17/20 11/18/20 08:05 Unknown 20:58 Sodium 146 H Potassium 4.2 Chloride 116 H Carbon Dioxide 11 L Anion Gap 23 H BUN 47 H Creatinine 1.68 H Estim Creat Clear Calc 31.6 Estimated GFR 40 Random Glucose 97 Calcium 8.5 Magnesium 2.2 Total Protein (PEP ) 6.7 Albumin (PEP) 3.2 L Qqkbj-2-Nogicdgro 0.7 H Fvyxb-4-Pfvxfpuju 0.9 Pvpn-5-Zggxrute 0.4 Sunl-0-Ciwmydcm 0.4 Gamma Globulins 1.2 Abnorm Protein Ban d 1 0.5 H PEP Interpretation SEE NOTE U [place] Prot/Creat Ratio 1.742 H Ur Creatinine mg/d L 97 U Total Protein mg /dL 169 H Protein/Creatinin Ratio 1742 H Urine Albumin (%) 44 U Mjuez-9-Yytgoqkw (%) 2 U Ayknh-6-Richemfi (%) 10 U Beta Globulin (% ) 18 U Gamma Globulin ( %) 26 U Abnormal Prot Ba nd 1 SEE NOTE Urine PEP Interpre t SEE NOTE 11/19/20 08:49 Sodium 148 H Potassium 4.3 Chloride 117 H Carbon Dioxide 14 L Anion Gap 21 H BUN 55 H Creatinine 1.83 H Estim Creat Clear Calc 29.0 Estimated GFR 36 Random Glucose 127 H Calcium 8.6 Magnesium Total Protein (PEP ) Albumin (PEP) Zrkhz-0-Ozftjajvw Ucvsa-9-Iowlabyyo Rhlx-0-Idmfvsig Dxmw-8-Dkaqxseu Gamma Globulins Abnorm Protein Ban d 1 PEP Interpretation U [place] Prot/Creat Ratio Ur Creatinine mg/d L U Total Protein mg /dL Protein/Creatinin Ratio Urine Albumin (%) U Zmvjz-5-Qmsuchup (%) U Qlshi-6-Hswhvchz (%) U Beta Globulin (% ) U Gamma Globulin ( %) U Abnormal Prot Ba nd 1 Urine PEP Interpre t Const: General: comfortable and no acute distress Resp: Effort & Inspection: normal respiratory effort Cardio: Rhythm: regular rhythm GI: Inspection: No distended Palpation (GI): Soft to palpation, not firm and nontender Progress Note: A&P Assessment and plan (1) Small bowel obstruction: Status: Acute Assessment and Plan: He been doing well with good flatus I have reviewed his CAT scans multiple times with radiologists- thickening in the terminal ileum extending to the 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; adenocarcinoma much less of a possibility [place] to have tissue diagnosis as lymphoma will be very responsive to chemotherapy with CHOP Colonoscopy therefore planned if he tolerates prep He may not need surgical resection if the neoplastic process response to chemotherapy However, if he reobstructs, we will have to do resection of the terminal ileum and cecum He had NG tube was removed this morning as he had been passing flatus and wanted this out He understands that this is possible that we may need to reinsert the NG tube I explained to him the possibilities as described above He is in agreement Fall Risk Details Current Medications: Current Medications Generic Name Dose Route Start Last Admin Trade Name Freq PRN Reason Stop Dose Admin Acetaminophen 650 mg 11/16/20 05:21 Acetaminophen Supp 650 Mg Supp.Rect [place] Q6H PRN Pain, Mild (Pain Scale 1-3) Benzocaine 1 lozenge 11/18/20 10:35 11/19/20 14:30 Throat Lozenge, Medicated Lozenge MUCOUS MEM 1 lozenge Q2H PRN Administration Sore Throat Carvedilol 3.125 mg 11/18/20 13:45 11/19/20 10:42 Carvedilol 3.125 Mg Tablet PO 3.125 mg BID ROCKY Administration Protocol Heparin Sodium (Porcine) 5,000 unit 11/16/20 06:00 11/19/20 14:30 Heparin Sodium,Porcine 5,000 Unit/Ml Vial SUBCUT 5,000 unit Q8H ROCKY Administration Hydromorphone HCl 0.5 mg 11/16/20 05:57 11/17/20 06:19 Hydromorphone Hcl 0.5 Mg/0.5 Ml Syringe IVPUSH 0.5 mg Q4H PRN Administration Breakthrough Pain Piperacillin Sod/Tazobactam 50 mls @ 100 mls/hr 11/16/20 12:00 11/19/20 11:18 Sod 2.25 gm/ Sodium Chloride IV Infused Q6H ROCKY Infusion Dextrose 1,000 mls @ 100 mls/hr 11/19/20 10:00 11/19/20 11:22 D5w IVCONT 100 mls/hr .Q10H ROCKY Administration Melatonin 6 mg 11/18/20 20:58 11/18/20 21:36 Melatonin 3 Mg Tablet PO 6 mg BEDTIME PRN Administration Insomnia Multi-Ingred Medicated Throat [place] 1 spray 11/17/20 11:07 11/17/20 15:29 Throat [place], Medicated 20 Ml Bottle MUCOUS MEM 1 spray Q2H PRN Administration Sore Throat Ondansetron HCl 4 mg 11/18/20 12:13 11/18/20 21:37 Ondansetron Hcl 4 Mg/2 Ml Vial IVPUSH 4 mg Q8H PRN Administration Nausea and Vomiting Sodium Chloride 3 ml 11/16/20 08:00 11/19/20 14:30 0.9 % Sodium Chloride Flush 3 Ml Syringe IVFLUSH Not Given QSHIFT ROCKY Time Spent With Patient Time: Total time spent is greater than 50% in coordination of care (as documented) at patient's floor/unit and/or counseling patient: Time with patient: 15 - 24 minutes Procedures Date of Service Date of Service: 11/20/20 Quality Stroke Does the patient have a stroke diagnosis?: No VTE Prior VTE?: No VTE Risk Level:: Medical - moderate - high VTE Device Contraindication: N/A - Device Ordered VTE Drug Contraindication: N/A - Med Ordered
[2020-11-19 15:36] LABS: Anion Gap 16 (12-20); Blood Urea Nitrogen 56 mg/dL (9-16); Calcium 8.4 mg/dL (8.4-10.2); Carbon Dioxide 17 mmol/L (22-29); Chloride 115 mmol/L (96-108); Creatinine Clr Calc Pharmacy 27.7; Estimated Glomerular Filt Rate 34; Glucose Random 229 mg/dL (60-115); Potassium 3.8 mmol/L (3.3-5.1); Sodium 144 mmol/L (135-145)
[2020-11-19] MEDS: PEG 3350/Na Sulf,Bicarb,Cl/KCL 4,000 ML SOLN.RECON 4000 ML PO (16:39)
[2020-11-19] MEDS: Dextrose 5 % and 0.45 % NaCl 1,000 ML 80 ML IVCONT (16:39)
[2020-11-19] MEDS: ondansetron HCL 4 MG/2 ML VIAL IVPUSH (18:06)
--- NOTE | 2020-11-19 23:07 | P.PNNP_ITS ---
Subjective Subjective Date of Service: 11/19/20 Interval history: Follow up SBO NGT bothering him quite a bit today starting clears Physical Exam Vital Signs: Vital Signs: Last Vital Signs Temp 97.8 F 11/19/20 20:00 Pulse 102 H 11/19/20 21:10 Resp 18 11/19/20 20:00 BP 130/65 11/19/20 21:10 Pulse Ox 97 11/19/20 20:00 Body Mass Index 22.0 Const: General: cooperative, healthy appearing, comfortable, no acute distress, alert and ill appearing Nutritional Appearance: average body habitus Orientation/consciousness: patient oriented x3 Limitations: no limitations HENMT: Other: Unremarkable Head: Yes normal to inspection, Yes normocephalic and Yes atraumatic Ears: hearing grossly normal bilaterally Face and sinus: Yes other (NG tube in place) Mouth: Normal oral and palatal mucosa present Eyes: Sclerae: sclerae normal Pupils: Equal, round and reactive pupils present Neck: Neck: Yes normal visual inspection, Yes trachea midline and Yes supple Chest: Chest palpation & inspection: normal inspection of the chest Resp: Effort & Inspection: normal respiratory effort Auscultation: clear to auscultation bilaterally, no crackles, no wheezes and diminished lung sounds on the right in the lower lung aparicio Cardio: Jugular venous distension: no JVD Palpation: normal PMI Rate: regular rate Rhythm: regular rhythm Heart sounds: S1 normal heart sound present, S2 normal heart sound present, no gallops, no murmurs and no rubs GI: Other: Distended but softer, nontender, bowel sounds active, no palpable masses Inspection: No distended Palpation (GI): Soft to palpation, not firm, nontender, no guarding and No hepatosplenomegaly present Auscultation: other (decreased bowel sounds) Rectal Exam - Male: Yes deferred Back/Spine/Pelvis: Other: unremarkable Skin: Other: Normal color, warm and dry General skin exam: no rashes or lesions noted Neuro: General: patient oriented x3, gait normal and moves all extremities Cranial nerves: Yes Equal, round and reactive pupils present, Yes Normal hearing present and Yes Other cranial nerve findings present Speech: No Abnormal speech present Extrem: General: Yes normal to inspection and Yes no clubbing, cyanosis or edema Psych: Appearance: grossly normal Mental Status: mental status grossly normal and other Objective Data Labs CBC & Chem 7: 11/18/20 04:25 11/19/20 14:49 Labs: Laboratory Results - last 24 hr 11/17/20 11/17/20 11/19/20 08:05 Unknown 08:49 Sodium 148 H Potassium 4.3 Chloride 117 H Carbon Dioxide 14 L Anion Gap 21 H BUN 55 H Creatinine 1.83 H Estim Creat Clear Calc 29.0 Estimated GFR 36 Random Glucose 127 H Calcium 8.6 Total Protein (PEP) 6.7 Albumin (PEP) 3.2 L Xxywt-4-Xkmsjnzfs 0.7 H Vcwbd-7-Ohmbmipjk 0.9 Phop-8-Djyjhdvy 0.4 Ernt-0-Huaqvrby 0.4 Gamma Globulins 1.2 Abnorm Protein Band 1 0.5 H PEP Interpretation SEE NOTE U [place] Prot/Creat Ratio 1.742 H Ur Creatinine mg/dL 97 U Total Protein mg/dL 169 H Protein/Creatinin Ratio 1742 H Urine Albumin (%) 44 U Wpimh-5-Xqezbtkd (%) 2 U Lqwqv-8-Cseyvtrn (%) 10 U Beta Globulin (%) 18 U Gamma Globulin (%) 26 U Abnormal Prot Band 1 SEE NOTE Urine PEP Interpret SEE NOTE 11/19/20 14:49 Sodium 144 Potassium 3.8 Chloride 115 H Carbon Dioxide 17 L Anion Gap 16 BUN 56 H Creatinine 1.92 H Estim Creat Clear Calc 27.7 Estimated GFR 34 Random Glucose 229 H D Calcium 8.4 Total Protein (PEP) Albumin (PEP) Tpyyg-3-Stlslwbcb Akwur-3-Jazqjnyni Jdxj-1-Fzumuwwt Yoto-0-Szijelsz Gamma Globulins Abnorm Protein Band 1 PEP Interpretation U [place] Prot/Creat Ratio Ur Creatinine mg/dL U Total Protein mg/dL Protein/Creatinin Ratio Urine Albumin (%) U Necpw-6-Cdzeovyr (%) U Qxfzl-8-Bqpytyvx (%) U Beta Globulin (%) U Gamma Globulin (%) U Abnormal Prot Band 1 Urine PEP Interpret Microbiology Microbiology Results: Microbiology 11/16/20 03:12 Blood - Venous Blood Culture - Preliminary No growth after 48 hours. 11/16/20 03:10 Blood - Venous Blood Culture - Preliminary No growth after 48 hours. Assessment & Plan Assessment and plan (1) Small bowel obstruction: Status: Acute Assessment and Plan: creat slowly improved with ivf Procedures Date of Service Date of Service: 11/19/20 Progress Note: Quality Stroke Does the patient have a stroke diagnosis?: No
[2020-11-20] VITALS (16 sets, daily range): BP systolic 94–157; BP diastolic 56–92; PULSE 90–150; RESP 16–20; TEMP 36–36.8; O2SAT 92–97
[2020-11-20] MEDS: Piperacillin Sodium/Tazobactam 2.25 GM in 0.9 % Sodium Chloride 50 ML IV ×5 (01:01→23:50)
[2020-11-20] MEDS: Dextrose 5 % and 0.45 % NaCl 1,000 ML 80 ML IVCONT ×2 (05:52→15:47)
[2020-11-20] MEDS: Metoprolol Tartrate 5 MG/5 ML VIAL IVPUSH ×2 (06:17→09:13)
--- NOTE | 2020-11-20 06:30 | PC.NURSE ---
Around 5:35am the patient's heart went into afib with RVR reaching into the 170's. Heart was already in fib but suddenly increased. Pt stated to be restless and was sitting at edge off bed. Md notified and heart rate sustained between 130's ashleigh 150's even with recommend bearing down to try and break heart rate. Blood pressure also taken manually and rad 130/65. Lopressor was then ordered and heart rate came down into 120's and has sustained, MD update with results.
[2020-11-20 06:56] LABS: Hemoglobin 11.4 g/dl (14.0-18.0); Mean Corpuscular HGB Conc 32.6 g/dl (31.0-36.0); Mean Corpuscular Hemoglobin 30.6 pg (27.0-33.0); Mean Corpuscular Volume 94.1 fL (80-98); Mean Platelet Volume 11.1 fL (9.4-12.4); Platelet Count 291 X10*3/uL (160-400); Red Blood Count 3.72 X10*6/uL (4.60-5.80); Red Cell Distribution Width 13.7 % (11.0-16.0); White Blood Count 15.2 X10*3/uL (4.8-10.8)
[2020-11-20 07:19] LABS: Anion Gap 15 (12-20); Blood Urea Nitrogen 52 mg/dL (9-16); Calcium 8.1 mg/dL (8.4-10.2); Carbon Dioxide 21 mmol/L (22-29); Chloride 115 mmol/L (96-108); Creatinine Clr Calc Pharmacy 31.3; Estimated Glomerular Filt Rate 39; Glucose Random 150 mg/dL (60-115); Potassium 3.8 mmol/L (3.3-5.1); Sodium 147 mmol/L (135-145)
--- NOTE | 2020-11-20 07:47 | PM.PNNEP ---
Subjective Subjective Date of Service: 11/20/20 Interval history: Follow up SBO NGT bothering him quite a bit today starting clear fluid Physical Exam Vital Signs: Vital Signs: Last Vital Signs Temp 96.8 F 11/20/20 07:10 Pulse 118 H 11/20/20 07:10 Resp 20 11/20/20 07:10 BP 122/90 H 11/20/20 07:10 Pulse Ox 97 11/20/20 07:10 Body Mass Index 22.0 Const: General: cooperative, healthy appearing, comfortable, no acute distress, alert and ill appearing Nutritional Appearance: average body habitus Orientation/consciousness: patient oriented x3 Limitations: no limitations HENMT: Other: Unremarkable Head: Yes normal to inspection, Yes normocephalic and Yes atraumatic Ears: hearing grossly normal bilaterally Face and sinus: Yes other (NG tube in place) Mouth: Normal oral and palatal mucosa present Eyes: Sclerae: sclerae normal Pupils: Equal, round and reactive pupils present Neck: Neck: Yes normal visual inspection, Yes trachea midline and Yes supple Chest: Chest palpation & inspection: normal inspection of the chest Resp: Effort & Inspection: normal respiratory effort Auscultation: clear to auscultation bilaterally, no crackles, no wheezes and diminished lung sounds on the right in the lower lung aparicio Cardio: Jugular venous distension: no JVD Palpation: normal PMI Rate: regular rate Rhythm: regular rhythm Heart sounds: S1 normal heart sound present, S2 normal heart sound present, no gallops, no murmurs and no rubs GI: Other: Distended but softer, nontender, bowel sounds active, no palpable masses Inspection: No distended Palpation (GI): Soft to palpation, not firm, nontender, no guarding and No hepatosplenomegaly present Auscultation: other (decreased bowel sounds) Rectal Exam - Male: Yes deferred Back/Spine/Pelvis: Other: unremarkable Skin: Other: Normal color, warm and dry General skin exam: no rashes or lesions noted Neuro: General: patient oriented x3, gait normal and moves all extremities Cranial nerves: Yes Equal, round and reactive pupils present, Yes Normal hearing present and Yes Other cranial nerve findings present Speech: No Abnormal speech present Extrem: General: Yes normal to inspection and Yes no clubbing, cyanosis or edema Psych: Appearance: grossly normal Mental Status: mental status grossly normal and other Objective Data Labs CBC & Chem 7: 11/20/20 05:27 11/20/20 05:26 Labs: Laboratory Results - last 24 hr 11/17/20 11/17/20 11/19/20 08:05 Unknown 08:49 WBC RBC Hgb Hct MCV MCH MCHC RDW Plt Count MPV Absolute Nucleated RBC Nucleated RBC % (auto) Sodium 148 H Potassium 4.3 Chloride 117 H Carbon Dioxide 14 L Anion Gap 21 H BUN 55 H Creatinine 1.83 H Estim Creat Clear Calc 29.0 Estimated GFR 36 Random Glucose 127 H Calcium 8.6 Total Protein (PEP) 6.7 Albumin (PEP) 3.2 L Nxbwr-8-Ndnxidttt 0.7 H Lkchi-1-Urixgivan 0.9 Othx-4-Rjynmgut 0.4 Rabl-0-Jqropvpt 0.4 Gamma Globulins 1.2 Abnorm Protein Band 1 0.5 H Abnorm Protein Band 2 TNP Abnorm Protein Band 3 TNP PEP Interpretation SEE NOTE U [place] Prot/Creat Ratio 1.742 H Ur Creatinine mg/dL 97 U Total Protein mg/dL 169 H Protein/Creatinin Ratio 1742 H Urine Albumin (%) 44 U Olxdc-8-Njayymnz (%) 2 U Cpwom-1-Sbunxeok (%) 10 U Beta Globulin (%) 18 U Gamma Globulin (%) 26 U Abnormal Prot Band 1 SEE NOTE U Abnormal Prot Band 2 TNP U Abnormal Prot Band 3 TNP Urine PEP Interpret SEE NOTE 11/19/20 11/20/20 11/20/20 14:49 05:26 05:27 WBC 15.2 H RBC 3.72 L Hgb 11.4 L Hct 35.0 L MCV 94.1 MCH 30.6 MCHC 32.6 RDW 13.7 Plt Count 291 MPV 11.1 Absolute Nucleated RBC 0.000 Nucleated RBC % (auto) 0.0 Sodium 144 147 H Potassium 3.8 3.8 Chloride 115 H 115 H Carbon Dioxide 17 L 21 L Anion Gap 16 15 BUN 56 H 52 H Creatinine 1.92 H 1.70 H Estim Creat Clear Calc 27.7 31.3 Estimated GFR 34 39 Random Glucose 229 H D 150 H Calcium 8.4 8.1 L Total Protein (PEP) Albumin (PEP) Qheol-2-Tjknpqnvy Citqe-7-Mvnofaulj Pbhx-9-Swllkiqx Yytj-7-Knoqlzka Gamma Globulins Abnorm Protein Band 1 Abnorm Protein Band 2 Abnorm Protein Band 3 PEP Interpretation U [place] Prot/Creat Ratio Ur Creatinine mg/dL U Total Protein mg/dL Protein/Creatinin Ratio Urine Albumin (%) U Vmekr-2-Ixoytrez (%) U Trpdu-3-Lpxabojm (%) U Beta Globulin (%) U Gamma Globulin (%) U Abnormal Prot Band 1 U Abnormal Prot Band 2 U Abnormal Prot Band 3 Urine PEP Interpret Microbiology Microbiology Results: Microbiology 11/16/20 03:12 Blood - Venous Blood Culture - Preliminary No growth after 48 hours. 11/16/20 03:10 Blood - Venous Blood Culture - Preliminary No growth after 48 hours. Assessment & Plan Assessment and plan (1) Small bowel obstruction: Status: Acute Assessment and Plan: creat slowly improved with ivf na rising so needs increased free h20 Time Spent With Patient Time: Total time spent is greater than 50% in coordination of care (as documented) at patient's floor/unit and/or counseling patient: Procedures Date of Service Date of Service: 11/20/20 Progress Note: Quality Stroke Does the patient have a stroke diagnosis?: No
[2020-11-20] MEDS: carvediloL 3.125 MG TABLET PO (08:09)
--- NOTE | 2020-11-20 09:25 | P.PNGS_ITS ---
Subjective Subjective Date of Service: 11/20/20 Interval history: Says he feels well States had a good night Denies any abdominal pain Passing flatus Says he had BMs after bowel prep Physical Exam Vital Signs: Vital Signs: Last Vital Signs Temp 96.8 F 11/20/20 07:10 Pulse 129 H 11/20/20 09:13 Resp 20 11/20/20 07:10 BP 122/90 H 11/20/20 08:09 Pulse Ox 97 11/20/20 07:10 Body Mass Index 22.0 Const: General: comfortable and no acute distress Resp: Effort & Inspection: normal respiratory effort Cardio: Rate: regular rate GI: Palpation (GI): Soft to palpation, not firm and nontender Progress Note: A&P Assessment and plan (1) Small bowel obstruction: Status: Acute Assessment and Plan: CT scan showing 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 Primary differential is lymphoma For colonoscopy today [place] to have tissue diagnosis - if lymphoma, may be able to avoid surgery as these are responsive to chemo therapy, unless he has obstruction Will follow-up Looks well today Fall Risk Details Current Medications: Current Medications Generic Name Dose Route Start Last Admin Trade Name Freq PRN Reason Stop Dose Admin Acetaminophen 650 mg 11/16/20 05:21 Acetaminophen Supp 650 Mg Supp.Rect DE Q6H PRN Pain, Mild (Pain Scale 1-3) Benzocaine 1 lozenge 11/18/20 10:35 11/19/20 14:30 Throat Lozenge, Medicated Lozenge MUCOUS MEM 1 lozenge Q2H PRN Administration Sore Throat Carvedilol 3.125 mg 11/18/20 13:45 11/20/20 08:09 Carvedilol 3.125 Mg Tablet PO 3.125 mg BID ROCKY Administration Protocol Heparin Sodium (Porcine) 5,000 unit 11/16/20 06:00 11/20/20 05:57 Heparin Sodium,Porcine 5,000 Unit/Ml Vial SUBCUT Not Given Q8H [facility] Hydromorphone HCl 0.5 mg 11/16/20 05:57 11/17/20 06:19 Hydromorphone Hcl 0.5 Mg/0.5 Ml Syringe IVPUSH 0.5 mg Q4H PRN Administration Breakthrough Pain Piperacillin Sod/Tazobactam 50 mls @ 100 mls/hr 11/16/20 12:00 07/14/21 06:23 Sod 2.25 gm/ Sodium Chloride IV Infused Q6H [facility]OCK[facility] Infusion Dextrose/Sodium Chloride 1,000 mls @ 80 mls/hr 11/19/20 16:15 11/20/20 05:52 D51/2ns IVCONT 80 mls/hr .[id number] ROCKY Administration Melatonin 6 mg 11/18/20 20:58 11/18/20 21:36 Melatonin 3 Mg Tablet PO 6 mg BEDTIME PRN Administration Insomnia Multi-Ingred Medicated Throat [place] 1 spray 11/17/20 11:07 11/17/20 15:29 Throat [place], Medicated 20 Ml Bottle MUCOUS MEM 1 spray Q2H PRN Administration Sore Throat Ondansetron HCl 4 mg 11/18/20 12:13 11/19/20 18:06 Ondansetron Hcl 4 Mg/2 Ml Vial IVPUSH 4 mg Q8H PRN Administration Nausea and Vomiting Sodium Chloride 3 ml 11/16/20 08:00 11/20/20 08:03 0.9 % Sodium Chloride Flush 3 Ml Syringe IVFLUSH Not Given QSHIFT [place] Time Spent With Patient Time: Total time spent is greater than 50% in coordination of care (as documented) at patient's floor/unit and/or counseling patient: Time with patient: 15 - 24 minutes Procedures Date of Service Date of Service: 11/20/20 Quality Stroke Does the patient have a stroke diagnosis?: No VTE Prior VTE?: No VTE Risk Level:: Medical - moderate - high VTE Device Contraindication: N/A - Device Ordered VTE Drug Contraindication: N/A - Med Ordered
--- NOTE | 2020-11-20 09:27 | P.PNCA_ITS ---
Subjective Subjective Date of Service: 11/20/20 Interval history: No symptoms. Developed AFib with RVR overnight. Physical Exam Vital Signs: Last Vital Signs Temp 96.8 F 11/20/20 07:10 Pulse 129 H 11/20/20 09:13 Resp 20 11/20/20 07:10 BP 122/90 H 11/20/20 08:09 Pulse Ox 97 11/20/20 07:10 Body Mass Index 22.0 GENERAL APPEARANCE: in no acute distress, pleasant. NECK: no carotid bruit, no jugular venous distention. SKIN: no suspicious lesions, warm and dry. HEART: no murmurs, irregular rate and rhythm. LUNGS: clear to auscultation bilaterally. Diminished at right base. ABDOMEN: soft, nontender. Bowel sounds positive EXTREMITIES: no edema. PERIPHERAL PULSES: equal. NEUROLOGIC: No gross deficits, AAO X 3 Results Labs and Meds Result diagrams: 11/20/20 05:27 11/20/20 05:26 Lab results: Laboratory Results - last 24 hr 11/17/20 11/17/20 11/19/20 08:05 Unknown 14:49 WBC RBC Hgb Hct MCV MCH MCHC RDW Plt Count MPV Absolute Nucleated RBC Nucleated RBC % (auto) Sodium 144 Potassium 3.8 Chloride 115 H Carbon Dioxide 17 L Anion Gap 16 BUN 56 H Creatinine 1.92 H Estim Creat Clear Calc 27.7 Estimated GFR 34 Random Glucose 229 H D Calcium 8.4 Total Protein (PEP) 6.7 Albumin (PEP) 3.2 L Vujor-8-Xspmybgnc 0.7 H Dxyoi-8-Bmetfahhh 0.9 Zqhr-7-Fzwggylo 0.4 Yrns-5-Qyabptcz 0.4 Gamma Globulins 1.2 Abnorm Protein Band 1 0.5 H Abnorm Protein Band 2 TNP Abnorm Protein Band 3 TNP PEP Interpretation SEE NOTE U [place] Prot/Creat Ratio 1.742 H Ur Creatinine mg/dL 97 U Total Protein mg/dL 169 H Protein/Creatinin Ratio 1742 H Urine Albumin (%) 44 U Gdpsg-7-Taufzhbj (%) 2 U Stjbs-0-Ecxiufgc (%) 10 U Beta Globulin (%) 18 U Gamma Globulin (%) 26 U Abnormal Prot Band 1 SEE NOTE U Abnormal Prot Band 2 TNP U Abnormal Prot Band 3 TNP Urine PEP Interpret SEE NOTE 11/20/20 11/20/20 05:26 05:27 WBC 15.2 H RBC 3.72 L Hgb 11.4 L Hct 35.0 L MCV 94.1 MCH 30.6 MCHC 32.6 RDW 13.7 Plt Count 291 MPV 11.1 Absolute Nucleated RBC 0.000 Nucleated RBC % (auto) 0.0 Sodium 147 H Potassium 3.8 Chloride 115 H Carbon Dioxide 21 L Anion Gap 15 BUN 52 H Creatinine 1.70 H Estim Creat Clear Calc 31.3 Estimated GFR 39 Random Glucose 150 H Calcium 8.1 L Total Protein (PEP) Albumin (PEP) Sefzl-5-Rqnmyyyth Fcjzb-1-Iuwzzknpo Zxry-1-Gtpjihzh Xhav-0-Bvkgybyz Gamma Globulins Abnorm Protein Band 1 Abnorm Protein Band 2 Abnorm Protein Band 3 PEP Interpretation U [place] Prot/Creat Ratio Ur Creatinine mg/dL U Total Protein mg/dL Protein/Creatinin Ratio Urine Albumin (%) U Olyev-3-Mxvqhbgk (%) U Mwflh-1-Sjfyjuef (%) U Beta Globulin (%) U Gamma Globulin (%) U Abnormal Prot Band 1 U Abnormal Prot Band 2 U Abnormal Prot Band 3 Urine PEP Interpret Progress Note: A&P Assessment and plan (1) Cardiomyopathy: Status: Acute (2) New onset atrial fibrillation: Status: Acute Assessment and Plan: 80-year-old gentleman who is presenting for small bowel obstruction which has improved with conservative management. 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 Clinically he is stable and has no symptoms. He had developed AFib with RVR overnight. He was taking carvedilol and was given IV Lopressor. His heart rate has improved with IV Lopressor. I think we stop the carvedilol and changing to metoprolol p.o.. I will also give him 1 dose of IV digoxin 250 mcg x 1. clinically appears euvolemic. Right base is diminished and I think we should check chest x-ray to make sure he does not have any effusion or atelectasis. if he persistently stays in atrial fibrillation for more than 48 hours then I will consider anticoagulation. Thank you for allowing me to participate in the care of your patient. Please feel free to contact me if you have any questions. Fall Risk Details Current Medications: Current Medications Generic Name Dose Route Start Last Admin Trade Name Freq PRN Reason Stop Dose Admin Acetaminophen 650 mg 11/16/20 05:21 Acetaminophen Supp 650 Mg Supp.Rect RI Q6H PRN Pain, Mild (Pain Scale 1-3) Benzocaine 1 lozenge 11/18/20 10:35 11/19/20 14:30 Throat Lozenge, Medicated Lozenge MUCOUS MEM 1 lozenge Q2H PRN Administration Sore Throat Carvedilol 3.125 mg 11/18/20 13:45 11/20/20 08:09 Carvedilol 3.125 Mg Tablet PO 3.125 mg BID ROCKY Administration Protocol Heparin Sodium (Porcine) 5,000 unit 11/16/20 06:00 11/20/20 05:57 Heparin Sodium,Porcine 5,000 Unit/Ml Vial SUBCUT Not Given Q8H [facility] Hydromorphone HCl 0.5 mg 11/16/20 05:57 11/17/20 06:19 Hydromorphone Hcl 0.5 Mg/0.5 Ml Syringe IVPUSH 0.5 mg Q4H PRN Administration Breakthrough Pain Piperacillin Sod/Tazobactam 50 mls @ 100 mls/hr 11/16/20 12:00 11/20/20 06:23 Sod 2.25 gm/ Sodium Chloride IV Infused Q6H [facility] Infusion Dextrose/Sodium Chloride 1,000 mls @ 80 mls/hr 11/19/20 16:15 11/20/20 05:52 D51/2ns IVCONT 80 mls/hr .[id number] [place] Administration Melatonin 6 mg 11/18/20 20:58 11/18/20 21:36 Melatonin 3 Mg Tablet PO 6 mg BEDTIME PRN Administration Insomnia Multi-Ingred Medicated Throat [place] 1 spray 11/17/20 11:07 11/17/20 15:29 Throat [place], Medicated 20 Ml Bottle MUCOUS MEM 1 spray Q2H PRN Administration Sore Throat Ondansetron HCl 4 mg 11/18/20 12:13 11/19/20 18:06 Ondansetron Hcl 4 Mg/2 Ml Vial IVPUSH 4 mg Q8H PRN Administration Nausea and Vomiting Sodium Chloride 3 ml 11/16/20 08:00 11/20/20 08:03 0.9 % Sodium Chloride Flush 3 Ml Syringe IVFLUSH Not Given QSHIFT [facility] Time Spent With Patient Time: Total time spent is greater than 50% in coordination of care (as doc umented) at patient's floor/unit and/or counseling patient: Time with patient: 25 - 35 minutes Progress Note: Quality Stroke Does the patient have a stroke diagnosis?: No Procedures Date of Service Date of Service: 11/20/20
[2020-11-20] MEDS: Digoxin 0.5 MG/2 ML AMPUL 0.25 MG IVPUSH (09:47)
[2020-11-20] MEDS: Sodium Phosphate,Mono-Dibasic 133 ML ENEMA PR (10:27)
--- NOTE | 2020-11-20 10:34 | HO.PM.IMPN ---
Subjective Subjective Date of Service: 11/20/20 Interval History: seen and examined this AM overnight events reviewed pt reports no cardiac symptoms -- no cp, sob, no palpitations ROS General - no fevers or chills Cardiovascular - no chest pain Respiratory - no shortness of breath or cough Abdominal- no abdominal pain, nausea, vomiting, diarrhea Physical Exam Vital Signs: Vital Signs: Last Vital Signs Temp 96.8 F 11/20/20 07:10 Pulse 108 H 11/20/20 09:47 Resp 20 11/20/20 07:10 BP 122/90 H 11/20/20 08:09 Pulse Ox 97 11/20/20 07:10 Body Mass Index 22.0 Const: Other: General - no acute distress, appears comfortable Cardiovascular - IRR Lungs - dim, R base > L; Abdomen - soft, nontender, no rebound or guarding Extremities - no edema bilaterally Neuro - awake and alert, no focal deficits Objective Data Current Medications Generic Name Dose Route Start Last Admin Trade Name Freq PRN Reason Stop Dose Admin Acetaminophen 650 mg 11/16/20 05:21 Acetaminophen Supp 650 Mg Supp.Rect NM Q6H PRN Pain, Mild (Pain Scale 1-3) Benzocaine 1 lozenge 11/18/20 10:35 11/19/20 14:30 Throat Lozenge, Medicated Lozenge MUCOUS MEM 1 lozenge Q2H PRN Administration Sore Throat Heparin Sodium (Porcine) 5,000 unit 11/16/20 06:00 11/20/20 05:57 Heparin Sodium,Porcine 5,000 Unit/Ml Vial SUBCUT Not Given Q8H [facility] Hydromorphone HCl 0.5 mg 11/16/20 05:57 11/17/20 06:19 Hydromorphone Hcl 0.5 Mg/0.5 Ml Syringe IVPUSH 0.5 mg Q4H PRN Administration Breakthrough Pain Piperacillin Sod/Tazobactam 50 mls @ 100 mls/hr 11/16/20 12:00 11/20/20 06:23 Sod 2.25 gm/ Sodium Chloride IV Infused Q6H [facility] Infusion Dextrose/Sodium Chloride 1,000 mls @ 80 mls/hr 11/19/20 16:15 11/20/20 05:52 D51/2ns IVCONT 80 mls/hr .[id number] [facility] Administration Melatonin 6 mg 11/18/20 20:58 11/18/20 21:36 Melatonin 3 Mg Tablet PO 6 mg BEDTIME PRN Administration Insomnia Metoprolol Tartrate 25 mg 11/20/20 15:00 Metoprolol Tartrate 25 Mg Tablet PO TID [facility] Protocol Multi-Ingred Medicated Throat [place] 1 spray 11/17/20 11:07 11/17/20 15:29 Throat [place], Medicated 20 Ml Bottle MUCOUS MEM 1 spray Q2H PRN Administration Sore Throat Ondansetron HCl 4 mg 11/18/20 12:13 11/19/20 18:06 Ondansetron Hcl 4 Mg/2 Ml Vial IVPUSH 4 mg Q8H PRN Administration Nausea and Vomiting Sodium Biphosphate/Sodium Phosphate 133 ml 11/20/20 09:57 Sodium Phosphate,[place]-Dibasic 133 Ml Enema NM ONCE PRN Poor Colonoscopy Prep Results Sodium Biphosphate/Sodium Phosphate 133 ml 11/20/20 11:00 11/20/20 10:27 Sodium Phosphate,[place]-Dibasic 133 Ml Enema NM 133 ml ONCE PRN Administration Poor Colonoscopy Prep Results Sodium Chloride 3 ml 11/16/20 08:00 11/20/20 08:03 0.9 % Sodium Chloride Flush 3 Ml Syringe IVFLUSH Not Given QSHIFT [facility] Labs CBC & Chem 7: 11/20/20 05:27 11/20/20 05:26 Labs: Laboratory Results - last 24 hr 11/17/20 11/17/20 11/19/20 08:05 Unknown 14:49 WBC RBC Hgb Hct MCV MCH MCHC RDW Plt Count MPV Absolute Nucleated RBC Nucleated RBC % (auto) Sodium 144 Potassium 3.8 Chloride 115 H Carbon Dioxide 17 L Anion Gap 16 BUN 56 H Creatinine 1.92 H Estim Creat Clear Calc 27.7 Estimated GFR 34 Random Glucose 229 H D Calcium 8.4 Total Protein (PEP) 6.7 Albumin (PEP) 3.2 L Fdsxo-1-Mvxyikwgz 0.7 H Rtwev-9-Bqtymejky 0.9 Jgvl-2-Zyorwjde 0.4 Ughd-2-Wywgnyee 0.4 Gamma Globulins 1.2 Abnorm Protein Band 1 0.5 H Abnorm Protein Band 2 TNP Abnorm Protein Band 3 TNP PEP Interpretation SEE NOTE U Abnormal Prot Band 2 TNP U Abnormal Prot Band 3 TNP 11/20/20 11/20/20 05:26 05:27 WBC 15.2 H RBC 3.72 L Hgb 11.4 L Hct 35.0 L MCV 94.1 MCH 30.6 MCHC 32.6 RDW 13.7 Plt Count 291 MPV 11.1 Absolute Nucleated RBC 0.000 Nucleated RBC % (auto) 0.0 Sodium 147 H Potassium 3.8 Chloride 115 H Carbon Dioxide 21 L Anion Gap 15 BUN 52 H Creatinine 1.70 H Estim Creat Clear Calc 31.3 Estimated GFR 39 Random Glucose 150 H Calcium 8.1 L Total Protein (PEP) Albumin (PEP) Cwmhv-5-Rzbdyuhen Ntggv-2-Elvpaeeqx Mhup-6-Wjtunric Syot-7-Xfwxurvq Gamma Globulins Abnorm Protein Band 1 Abnorm Protein Band 2 Abnorm Protein Band 3 PEP Interpretation U Abnormal Prot Band 2 U Abnormal Prot Band 3 Quality Stroke Does the patient have a stroke diagnosis?: No VTE Prior VTE?: No VTE Risk Level:: Medical - moderate - high VTE Device Contraindication: N/A - Device Ordered VTE Drug Contraindication: N/A - Med Ordered Assessment and Plan (1) Cardiomyopathy: Status: Acute Assessment and Plan: 80-year-old male with a past medical history of hypertension, hypothyroidism, hiatal hernia, 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 Noted to have KATHLEEN and partial SBO. A. 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 Likely from IV fluids changed to D5W check BMP tonight Aspiration Pneumonia zosyn day #4 KATHLEEN. Likely prerenal, hypovolemia. trending down HypoNa - mild continue D5-1/2 trend labs HTN on multiple meds at home -- all were on hold for SBO and was treated with IV meds; now started on metoprolol for his A. Fib; add back others as bp allows DVT prophylaxis: Subcu heparin Code status: Full code Attending Dr. [place]
--- NOTE | 2020-11-20 12:27 | MHC.CM.PN ---
per multi dis rounds pt to have a colonscioy today dc not expected till nect week
--- NOTE | 2020-11-20 12:31 | MHC.SHP ---
Pre-Procedural Eval Section A Date of Service: 11/20/20 The patient is an INPATIENT: Yes The History & Physical has been completed within 30 days and I have reviewed it.: Yes Section B Chief Complaint: KATHLEEN Allergies: Allergies Allergy/AdvReac Type Severity Reaction Status Date / Time No Known Allergies Allergy Mild NONE Verified 11/16/20 02:59 Plan Diagnosis/Plan: Unchanged I have reviewed the history and physical and performed a pertinent physical examination on my patient. No changes have occurred unless specified. colonoscopy due to concern for mass with SBO.
--- NOTE | 2020-11-20 12:35 | HO.ANESPROP2 ---
[facility] Active Problems Active Problems: All Active Problems (Updated 11/20/20 @ 11:35 by Rolando Lou MD) New onset atrial fibrillation (Acute) Cardiomyopathy (Acute) Atrial tachycardia (Acute) CKD (chronic kidney disease) stage 2, GFR 60-89 ml/min (Acute) Acute renal failure (Acute) Essential hypertension (Acute) PAC (premature atrial contraction) (Acute) Atrial arrhythmia (Acute) Lymphadenopathy (Chronic) Small bowel obstruction (Acute) Dehydration (Acute) Past Medical History Medical History Arthritis Basal cell carcinoma Hiatal hernia HTN (hypertension) Hypothyroidism Lymphadenopathy Rosacea Family History Family History Father Heart disease Surgical History Surgical History Hx of biopsy Hx of colonoscopy Hx of tonsillectomy Hx of total knee replacement Social History Social History Household Members: Spouse Housing: House Alcohol intake: current Alcohol intake frequency: holidays/special occasions only Alcohol type: beer Patient Tobacco Use Status: Never used Tobacco Cigarette Packs Per Day: 0.5 Use of substances other than those prescribed or required for medical reasons: No Currently Displaying Signs/Symptoms of Drug Intoxication Withdrawal: No Are you DNR?: No Advance Directives: No Advance Directives Information Provided: Yes Advance Directives on File: No Do you have thoughts of harming others: None Do you have a plan to hurt others: No Plan Recently lost weight without trying: Unsure service: Yes Current occupational status: retired Meds Allergies Allergy/AdvReac Type Severity Reaction Status Date / Time No Known Allergies Allergy Mild NONE Verified 11/16/20 02:59 Active Medications: Current Medications Generic Name Dose Route Start Last Admin Trade Name Freq PRN Reason Stop Dose Admin Acetaminophen 650 mg 11/16/20 05:21 Acetaminophen Supp 650 Mg Supp.Rect MS Q6H PRN Pain, Mild (Pain Scale 1-3) Benzocaine 1 lozenge 11/18/20 10:35 11/19/20 14:30 Throat Lozenge, Medicated Lozenge MUCOUS MEM 1 lozenge Q2H PRN Administration Sore Throat Heparin Sodium (Porcine) 5,000 unit 11/16/20 06:00 11/20/20 05:57 Heparin Sodium,Porcine 5,000 Unit/Ml Vial SUBCUT Not Given Q8H [facility] Hydromorphone HCl 0.5 mg 11/16/20 05:57 11/17/20 06:19 Hydromorphone Hcl 0.5 Mg/0.5 Ml Syringe IVPUSH 0.5 mg Q4H PRN Administration Breakthrough Pain Piperacillin Sod/Tazobactam 50 mls @ 100 mls/hr 11/16/20 12:00 11/20/20 12:16 Sod 2.25 gm/ Sodium Chloride IV Infused Q6H [facility] Infusion Dextrose/Sodium Chloride 1,000 mls @ 80 mls/hr 11/19/20 16:15 11/20/20 05:52 D51/2ns IVCONT 80 mls/hr .[id number] [facility] Administration Melatonin 6 mg 11/18/20 20:58 11/18/20 21:36 Melatonin 3 Mg Tablet PO 6 mg BEDTIME PRN Administration Insomnia Metoprolol Tartrate 25 mg 11/20/20 15:00 Metoprolol Tartrate 25 Mg Tablet PO TID [facility] Protocol Multi-Ingred Medicated Throat [place] 1 spray 11/17/20 11:07 11/17/20 15:29 Throat [place], Medicated 20 Ml Bottle MUCOUS MEM 1 spray Q2H PRN Administration Sore Throat Ondansetron HCl 4 mg 11/18/20 12:13 11/19/20 18:06 Ondansetron Hcl 4 Mg/2 Ml Vial IVPUSH 4 mg Q8H PRN Administration Nausea and Vomiting Sodium Biphosphate/Sodium Phosphate 133 ml 11/20/20 09:57 Sodium Phosphate,[place]-Dibasic 133 Ml Enema MS ONCE PRN Poor Colonoscopy Prep Results Sodium Biphosphate/Sodium Phosphate 133 ml 11/20/20 11:00 11/20/20 10:27 Sodium Phosphate,[place]-Dibasic 133 Ml Enema MS 133 ml ONCE PRN Administration Poor Colonoscopy Prep Results Sodium Chloride 3 ml 11/16/20 08:00 11/20/20 08:03 0.9 % Sodium Chloride Flush 3 Ml Syringe IVFLUSH Not Given QSHIFT [facility] Home Medications Medication Instructions Recorded Confirmed Last Taken Type atenolol 1 tab PO DAILY 07/24/20 11/16/20 Unknown History benazepril 1 tab PO DAILY 07/24/20 11/16/20 Unknown History clonidine HCl 1 tab PO BID 07/24/20 11/16/20 Unknown History levothyroxine 1 tab PO DAILY 07/24/20 11/16/20 Unknown History nifedipine 2 tab PO DAILY 07/24/20 11/16/20 Unknown History omeprazole 1 cap PO DAILY 07/24/20 11/16/20 Unknown History Exam Exam Date and Time: November 20, 2020 1235 Height,Weight and Vital Signs: Height 5 ft 7 in Weight 63.9 kg Last Vital Signs Temp 96.8 F 11/20/20 11:16 Pulse 93 11/20/20 11:16 Resp 18 11/20/20 11:16 BP 133/86 11/20/20 11:16 Pulse Ox 94 11/20/20 11:16 Pertinent Lab Results Pertinent Lab Results: Laboratory Tests 11/16/20 11/16/20 11/16/20 03:10 03:10 03:10 WBC 2.0 L RBC 4.05 L Hgb 12.8 L Hct 37.2 L MCV 91.9 MCH 31.6 MCHC 34.4 RDW 12.8 Plt Count 317 MPV 9.4 Immature Gran % (Auto) Cancelled Neut % (Auto) Cancelled Lymph % (Auto) Cancelled [place] % (Auto) Cancelled Eos % (Auto) Cancelled Baso % (Auto) Cancelled Lymph # (Auto) Cancelled [place] # (Auto) Cancelled Eos # (Auto) Cancelled Baso # (Auto) Cancelled Abs Immat Gran (auto) Cancelled Absolute Neuts (auto) Cancelled Absolute Nucleated RBC 0.000 Nucleated RBC % (auto) 0.0 Neutrophils % (Manual) 45 Band Neutrophils % 44 H Lymphocytes % (Manual) 7 L Atypical Lymphs % (Man) 2 Monocytes % (Manual) 2 Metamyelocytes % Abs Neuts (Manual) 1.8 L Lymphocytes # (Manual) 0.1 L Monocytes # (Manual) Metamyelocytes # Toxic Vacuolation PRESENT Platelet Estimate NORMAL Large Platelets PRESENT Plt Morphology Comment NOTED RBC Morphology NORMAL Acanthocytes (Spur) Sodium 135 Potassium 4.5 Chloride 102 Carbon Dioxide 14 L Anion Gap 24 H BUN 77 H D Creatinine 3.03 H Estim Creat Clear Calc 17.5 Estimated GFR 20 Random Glucose 184 H D Lactic Acid 1.9 Calcium 8.9 Magnesium Total Bilirubin 1.2 H Direct Bilirubin 0.5 AST 19 ALT 13 Alkaline Phosphatase 80 Troponin I High Sens B-Natriuretic Peptide Total Protein 7.1 Total Protein (PEP) Albumin 3.9 Albumin (PEP) Tcmwc-1-Skrbnfatw Vbwod-2-Crgstalpm Yvuh-4-Ijbvmbof Nzgz-8-Fcxbckzb Gamma Globulins Abnorm Protein Band 1 Abnorm Protein Band 2 Abnorm Protein Band 3 PEP Interpretation Lipase 11 Urine Color Urine Appearance Urine pH Ur Specific [place] Urine Protein Urine Glucose (UA) Urine Ketones Urine Blood Urine Nitrite Ur Leukocyte Esterase Urine RBC Urine WBC Ur Squamous Epith Cells Ur Renal Epithelial Cell Urine Bacteria Hyaline Casts Urine Mucus U [place] Prot/Creat Ratio Ur Creatinine mg/dL U Total Protein mg/dL Protein/Creatinin Ratio Urine Albumin (%) U Fukrj-0-Izycwitn (%) U Ymxpc-0-Urximzso (%) U Beta Globulin (%) U Gamma Globulin (%) U Abnormal Prot Band 1 U Abnormal Prot Band 2 U Abnormal Prot Band 3 Urine PEP Interpret COVID-19 (WILLIAM) COVID-19 Clin Com 11/16/20 11/16/20 11/16/20 03:10 03:21 04:31 WBC RBC Hgb Hct MCV MCH MCHC RDW Plt Count MPV Immature Gran % (Auto) Neut % (Auto) Lymph % (Auto) [place] % (Auto) Eos % (Auto) Baso % (Auto) Lymph # (Auto) [place] # (Auto) Eos # (Auto) Baso # (Auto) Abs Immat Gran (auto) Absolute Neuts (auto) Absolute Nucleated RBC Nucleated RBC % (auto) Neutrophils % (Manual) Band Neutrophils % Lymphocytes % (Manual) Atypical Lymphs % (Man) Monocytes % (Manual) Metamyelocytes % Abs Neuts (Manual) Lymphocytes # (Manual) Monocytes # (Manual) Metamyelocytes # Toxic Vacuolation Platelet Estimate Large Platelets Plt Morphology Comment RBC Morphology Acanthocytes (Spur) Sodium Potassium Chloride Carbon Dioxide Anion Gap BUN Creatinine Estim Creat Clear Calc Estimated GFR Random Glucose Lactic Acid Calcium Magnesium Total Bilirubin Direct Bilirubin AST ALT Alkaline Phosphatase Troponin I High Sens 16.3 B-Natriuretic Peptide Total Protein Total Protein (PEP) Albumin Albumin (PEP) Odwnx-0-Oeyzwsaht Fsqsl-7-Pthqxdlci Gfiy-0-Dfytcvty Xpaf-2-Occvepfi Gamma Globulins Abnorm Protein Band 1 Abnorm Protein Band 2 Abnorm Protein Band 3 PEP Interpretation Lipase Urine Color YELLOW Urine Appearance CLEAR Urine pH 6.0 Ur Specific [place] 1.020 Urine Protein 2+ H Urine Glucose (UA) NEG Urine Ketones NEG Urine Blood NEG Urine Nitrite NEG Ur Leukocyte Esterase NEG Urine RBC 0 Urine WBC 0-2 Ur Squamous Epith Cells TRACE Ur Renal Epithelial Cell 1+ Urine Bacteria NONE Hyaline Casts 0-2 Urine Mucus TRACE U [place] Prot/Creat Ratio Ur Creatinine mg/dL U Total Protein mg/dL Protein/Creatinin Ratio Urine Albumin (%) U Syzyg-0-Aglrailq (%) U Qmjii-4-Rdkwzlqx (%) U Beta Globulin (%) U Gamma Globulin (%) U Abnormal Prot Band 1 U Abnormal Prot Band 2 U Abnormal Prot Band 3 Urine PEP Interpret COVID-19 (WILLIAM) Negative COVID-19 Clin Com See Note 11/16/20 11/16/20 11/16/20 07:10 09:33 09:33 WBC RBC Hgb Hct MCV MCH MCHC RDW Plt Count MPV Immature Gran % (Auto) Neut % (Auto) Lymph % (Auto) [place] % (Auto) Eos % (Auto) Baso % (Auto) Lymph # (Auto) [place] # (Auto) Eos # (Auto) Baso # (Auto) Abs Immat Gran (auto) Absolute Neuts (auto) Absolute Nucleated RBC Nucleated RBC % (auto) Neutrophils % (Manual) Band Neutrophils % Lymphocytes % (Manual) Atypical Lymphs % (Man) Monocytes % (Manual) Metamyelocytes % Abs Neuts (Manual) Lymphocytes # (Manual) Monocytes # (Manual) Metamyelocytes # Toxic Vacuolation Platelet Estimate Large Platelets Plt Morphology Comment RBC Morphology Acanthocytes (Spur) Sodium 138 Potassium 4.7 Chloride 107 Carbon Dioxide 16 L Anion Gap 20 BUN 71 H Creatinine 2.79 H Estim Creat Clear Calc 19.0 Estimated GFR 22 Random Glucose 130 H Lactic Acid Calcium 8.0 L D Magnesium Total Bilirubin Direct Bilirubin AST ALT Alkaline Phosphatase Troponin I High Sens 30.2 D B-Natriuretic Peptide 425 H Total Protein Total Protein (PEP) Albumin Albumin (PEP) Afyqg-1-Pcpljrpmy Hoein-7-Kcqczqpmg Rqcu-7-Adcnqigd Fdpd-0-Gqfktxqt Gamma Globulins Abnorm Protein Band 1 Abnorm Protein Band 2 Abnorm Protein Band 3 PEP Interpretation Lipase Urine Color Urine Appearance Urine pH Ur Specific [place] Urine Protein Urine Glucose (UA) Urine Ketones Urine Blood Urine Nitrite Ur Leukocyte Esterase Urine RBC Urine WBC Ur Squamous Epith Cells Ur Renal Epithelial Cell Urine Bacteria Hyaline Casts Urine Mucus U [place] Prot/Creat Ratio Ur Creatinine mg/dL U Total Protein mg/dL Protein/Creatinin Ratio Urine Albumin (%) U Lxute-5-Hfcghzmm (%) U Pgtom-1-Kqjqicda (%) U Beta Globulin (%) U Gamma Globulin (%) U Abnormal Prot Band 1 U Abnormal Prot Band 2 U Abnormal Prot Band 3 Urine PEP Interpret COVID-19 ([facility]ILLIAM) COVID-19 Clin Com 11/17/20 11/17/20 11/17/20 05:50 05:50 05:50 WBC 15.1 H RBC 3.79 L Hgb 12.0 L Hct 36.1 L MCV 95.3 MCH 31.7 MCHC 33.2 RDW 13.2 Plt Count 311 MPV 10.3 Immature Gran % (Auto) Cancelled Neut % (Auto) Cancelled Lymph % (Auto) Cancelled [place] % (Auto) Cancelled Eos % (Auto) Cancelled Baso % (Auto) Cancelled Lymph # (Auto) Cancelled [place] # (Auto) Cancelled Eos # (Auto) Cancelled Baso # (Auto) Cancelled Abs Immat Gran (auto) Cancelled Absolute Neuts (auto) Cancelled Absolute Nucleated RBC 0.000 Nucleated RBC % (auto) 0.0 Neutrophils % (Manual) 20 L Band Neutrophils % 69 H Lymphocytes % (Manual) 3 L Atypical Lymphs % (Man) Monocytes % (Manual) 6 Metamyelocytes % 2 Abs Neuts (Manual) 13.4 H Lymphocytes # (Manual) 0.5 L Monocytes # (Manual) 0.9 Metamyelocytes # 0.3 Toxic Vacuolation PRESENT Platelet Estimate NORMAL Large Platelets Plt Morphology Comment NORMAL RBC Morphology NOTED Acanthocytes (Spur) 3+ (>5) Sodium 143 Potassium 4.6 Chloride 110 H Carbon Dioxide 17 L Anion Gap 21 H BUN 72 H Creatinine 2.49 H Estim Creat Clear Calc 21.3 Estimated GFR 25 Random Glucose 92 Lactic Acid Calcium 8.5 D Magnesium Total Bilirubin Direct Bilirubin AST ALT Alkaline Phosphatase Troponin I High Sens B-Natriuretic Peptide 894 H Total Protein Total Protein (PEP) Albumin Albumin (PEP) Fyffz-3-Fwccszavb Mwkbv-2-Fpeekatur Hklh-5-Fwsdmajc Kkrx-7-Enegoqzv Gamma Globulins Abnorm Protein Band 1 Abnorm Protein Band 2 Abnorm Protein Band 3 PEP Interpretation Lipase Urine Color Urine Appearance Urine pH Ur Specific [place] Urine Protein Urine Glucose (UA) Urine Ketones Urine Blood Urine Nitrite Ur Leukocyte Esterase Urine RBC Urine WBC Ur Squamous Epith Cells Ur Renal Epithelial Cell Urine Bacteria Hyaline Casts Urine Mucus U [place] Prot/Creat Ratio Ur Creatinine mg/dL U Total Protein mg/dL Protein/Creatinin Ratio Urine Albumin (%) U Nmriu-0-Llqfzrtk (%) U Hemgt-2-Dsmwszfq (%) U Beta Globulin (%) U Gamma Globulin (%) U Abnormal Prot Band 1 U Abnormal Prot Band 2 U Abnormal Prot Band 3 Urine PEP Interpret COVID-19 (WILLIAM) COVID-19 Clin Com 11/17/20 11/17/20 11/18/20 08:05 Unknown 04:25 WBC 16.3 H RBC 3.25 L Hgb 10.1 L Hct 30.7 L MCV 94.5 MCH 31.1 MCHC 32.9 RDW 13.4 Plt Count 276 MPV 10.1 Immature Gran % (Auto) Neut % (Auto) Lymph % (Auto) [place] % (Auto) Eos % (Auto) Baso % (Auto) Lymph # (Auto) [place] # (Auto) Eos # (Auto) Baso # (Auto) Abs Immat Gran (auto) Absolute Neuts (auto) Absolute Nucleated RBC 0.000 Nucleated RBC % (auto) 0.0 Neutrophils % (Manual) Band Neutrophils % Lymphocytes % (Manual) Atypical Lymphs % (Man) Monocytes % (Manual) Metamyelocytes % Abs Neuts (Manual) Lymphocytes # (Manual) Monocytes # (Manual) Metamyelocytes # Toxic Vacuolation Platelet Estimate Large Platelets Plt Morphology Comment RBC Morphology Acanthocytes (Spur) Sodium Potassium Chloride Carbon Dioxide Anion Gap BUN Creatinine Estim Creat Clear Calc Estimated GFR Random Glucose Lactic Acid Calcium Magnesium Total Bilirubin Direct Bilirubin AST ALT Alkaline Phosphatase Troponin I High Sens B-Natriuretic Peptide Total Protein Total Protein (PEP) 6.7 Albumin Albumin (PEP) 3.2 L Jpvlv-8-Odatfolgc 0.7 H Zmkfh-9-Pxkddnwep 0.9 Xhvz-4-Wyhrzdnj 0.4 Odzc-3-Rzsttqvw 0.4 Gamma Globulins 1.2 Abnorm Protein Band 1 0.5 H Abnorm Protein Band 2 TNP Abnorm Protein Band 3 TNP PEP Interpretation SEE NOTE Lipase Urine Color Urine Appearance Urine pH Ur Specific [place] Urine Protein Urine Glucose (UA) Urine Ketones Urine Blood Urine Nitrite Ur Leukocyte Esterase Urine RBC Urine WBC Ur Squamous Epith Cells Ur Renal Epithelial Cell Urine Bacteria Hyaline Casts Urine Mucus U [place] Prot/Creat Ratio 1.742 H Ur Creatinine mg/dL 97 U Total Protein mg/dL 169 H Protein/Creatinin Ratio 1742 H Urine Albumin (%) 44 U Kjicx-5-Aoxekdhd (%) 2 U [place]-9-Jdrhswzm (%) 10 U Beta Globulin (%) 18 U Gamma Globulin (%) 26 U Abnormal Prot Band 1 SEE NOTE U Abnormal Prot Band 2 TNP U Abnormal Prot Band 3 TNP Urine PEP Interpret SEE NOTE COVID-19 ([facility]IAM) COVID-19 Clin Com 11/18/20 11/18/20 11/19/20 04:25 20:58 08:49 WBC RBC Hgb Hct MCV MCH MCHC RDW Plt Count MPV Immature Gran % (Auto) Neut % (Auto) Lymph % (Auto) [place] % (Auto) Eos % (Auto) Baso % (Auto) Lymph # (Auto) [place] # (Auto) Eos # (Auto) Baso # (Auto) Abs Immat Gran (auto) Absolute Neuts (auto) Absolute Nucleated RBC Nucleated RBC % (auto) Neutrophils % (Manual) Band Neutrophils % Lymphocytes % (Manual) Atypical Lymphs % (Man) Monocytes % (Manual) Metamyelocytes % Abs Neuts (Manual) Lymphocytes # (Manual) Monocytes # (Manual) Metamyelocytes # Toxic [place] Platelet Estimate Large Platelets Plt Morphology Comment RBC Morphology Acanthocytes (Spur) Sodium 145 146 H 148 H Potassium 3.9 4.2 4.3 Chloride 115 H 116 H 117 H Carbon Dioxide 17 L 11 L 14 L Anion Gap 17 23 H 21 H BUN 55 H 47 H 55 H Creatinine 1.76 H 1.68 H 1.83 H Estim Creat Clear Calc 30.2 31.6 29.0 Estimated GFR 37 40 36 Random Glucose 84 97 127 H Lactic Acid Calcium 8.1 L 8.5 8.6 Magnesium 2.2 Total Bilirubin Direct Bilirubin AST ALT Alkaline Phosphatase Troponin I High Sens B-Natriuretic Peptide Total Protein Total Protein (PEP) Albumin Albumin (PEP) Rdygd-1-Ufcxsihbz Jfidr-8-Duuqjizpj Fusb-6-Wipniuux Isxj-3-Ihzyakco Gamma Globulins Abnorm Protein Band 1 Abnorm Protein Band 2 Abnorm Protein Band 3 PEP Interpretation Lipase Urine Color Urine Appearance Urine pH Ur Specific [place] Urine Protein Urine Glucose (UA) Urine Ketones Urine Blood Urine Nitrite Ur Leukocyte Esterase Urine RBC Urine WBC Ur Squamous Epith Cells Ur Renal Epithelial Cell Urine Bacteria Hyaline Casts Urine Mucus U [place] Prot/Creat Ratio Ur Creatinine mg/dL U Total Protein mg/dL Protein/Creatinin Ratio Urine Albumin (%) U Xompd-9-Bfnnbhkn (%) U Ulcvl-1-Pjazgxzu (%) U Beta Globulin (%) U Gamma Globulin (%) U Abnormal Prot Band 1 U Abnormal Prot Band 2 U Abnormal Prot Band 3 Urine PEP Interpret COVID-19 ([facility]ILLIAM) COVID-19 Clin Com 11/19/20 11/20/20 11/20/20 14:49 05:26 05:27 WBC 15.2 H RBC 3.72 L Hgb 11.4 L Hct 35.0 L MCV 94.1 MCH 30.6 MCHC 32.6 RDW 13.7 Plt Count 291 MPV 11.1 Immature Gran % (Auto) Neut % (Auto) Lymph % (Auto) [place] % (Auto) Eos % (Auto) Baso % (Auto) Lymph # (Auto) [place] # (Auto) Eos # (Auto) Baso # (Auto) Abs Immat Gran (auto) Absolute Neuts (auto) Absolute Nucleated RBC 0.000 Nucleated RBC % (auto) 0.0 Neutrophils % (Manual) Band Neutrophils % Lymphocytes % (Manual) Atypical Lymphs % (Man) Monocytes % (Manual) Metamyelocytes % Abs Neuts (Manual) Lymphocytes # (Manual) Monocytes # (Manual) Metamyelocytes # Toxic [place] Platelet Estimate Large Platelets Plt Morphology Comment RBC Morphology Acanthocytes (Spur) Sodium 144 147 H Potassium 3.8 3.8 Chloride 115 H 115 H Carbon Dioxide 17 L 21 L Anion Gap 16 15 BUN 56 H 52 H Creatinine 1.92 H 1.70 H Estim Creat Clear Calc 27.7 31.3 Estimated GFR 34 39 Random Glucose 229 H D 150 H Lactic Acid Calcium 8.4 8.1 L Magnesium Total Bilirubin Direct Bilirubin AST ALT Alkaline Phosphatase Troponin I High Sens B-Natriuretic Peptide Total Protein Total Protein (PEP) Albumin Albumin (PEP) Icdoh-3-Bwcewxvev Ydmsp-2-Wgzzlgmpn Wrxt-7-Bsvfgavn Yhku-0-Nshwhksc Gamma Globulins Abnorm Protein Band 1 Abnorm Protein Band 2 Abnorm Protein Band 3 PEP Interpretation Lipase Urine Color Urine Appearance Urine pH Ur Specific [place] Urine Protein Urine Glucose (UA) Urine Ketones Urine Blood Urine Nitrite Ur Leukocyte Esterase Urine RBC Urine WBC Ur Squamous Epith Cells Ur Renal Epithelial Cell Urine Bacteria Hyaline Casts Urine Mucus U [place] Prot/Creat Ratio Ur Creatinine mg/dL U Total Protein mg/dL Protein/Creatinin Ratio Urine Albumin (%) U Rifzz-4-Dsstkdwn (%) U Mrstf-0-Dusniayf (%) U Beta Globulin (%) U Gamma Globulin (%) U Abnormal Prot Band 1 U Abnormal Prot Band 2 U Abnormal Prot Band 3 Urine PEP Interpret COVID-19 ([facility]IAM) COVID-19 Clin Com Airway Mallampati Class: II TM Dist: <=3cm Neck ROM: Limited Assessment and Plan Assessment Anesthesia Assessment: Anesthesia Plan Discussed Final Anesthetic Review NPO: Yes ASA Class: III Final Preanesthetic Review: No Changes in Pt Med Stat, Meds/Allgs Chart Reviewed, Consent Obtained/Reviewed and Anes Risks/Benef Reviewed Patient Risk: Intermediate Procedure Risk: Low Assessment/Block/Sedation in SS: Assess/Block/Sedation-SS Anesthetic Plan Anesthetic Plan: MAC: Disposition: Standard PACU
--- NOTE | 2020-11-20 12:45 | MHC.SHP ---
Pre-Procedural Eval Section A Date of Service: 11/20/20 The patient is an INPATIENT: Yes Changes since office visit: Yes New Medical Problems, Yes Changes in Medication and Yes Patient answered all questions; No Cold of Flu in the past 2 weeks The History & Physical has been completed within 30 days and I have reviewed it.: Yes Section B Chief Complaint: KATHLEEN Allergies: Allergies Allergy/AdvReac Type Severity Reaction Status Date / Time No Known Allergies Allergy Mild NONE Verified 11/16/20 02:59 Plan I have reviewed the history and physical and performed a pertinent physical examination on my patient. No changes have occurred unless specified.
--- NOTE | 2020-11-20 13:20 | P.BOP_ITS ---
Brief Operative Note Date of Service: 11/20/20 Pre-op diagnosis: SBO, abnormal CT scan of TI and cecum Post-op diagnosis: other (Mass in TI and cecum, diverticulosis, hemorrhoids) Procedure: COLONOSCOPY TILL CECUM WITH BIOPSIES Consent: Indications for the procedure and potential complications of bleeding, perforation, reaction to medications and missed diagnosis were discussed with the patient and informed consent was obtained. Instrument: Olympus PCF H 190 L variable stiffness pediatric colonoscope Monitoring: Vital signs and clinical assessment, intermittent blood pressure monitoring, continuous EKG monitoring, Pulse oximetry and Carbon Dioxide monitoring were done throughout the procedure. Colon withdrawl time was 30 minutes. Procedure: The patient was placed in the left lateral decubitis position and pre-procedure medications were administered. After a digital rectal examination of the ano-rectum, the video colonoscope was inserted into the rectum and advanced through the colon to the cecum. The colonoscope was slowly withdrawn in a retrograde panoramic fashion and the colon mucosa was carefully examined including a retroflexed view of the rectum. Findings and interventions are described below. Procedure Difficulty: Colon was long and tortuous and there was some loop formation. LLQ pressure was applied to intubate the ascending colon Findings: Terminal Ileum: Circumferential, ulcerated and polypoidal mass at the TI, ICV with narrowing of TI - biopsied were obtained. Multiple attempts to intubate the TI were unsuccessful due to luminal narrowing Cecum: Polypoidal mass/carpet polyp in the cecum - multiple biopsies obtained and sent for histology and AFP smear and culture Ascending Colon: Normal Transverse Colon: Normal Descending Colon: Moderate diverticulosis Sigmoid Colon: Moderate diverticulosis Rectum: Normal Ano-rectum: Moderate internal hemorrhoids Colon preparation: Fair despite copious irrigation Impression and Post Procedure Diagnosis: Colonoscopy Findings: Terminal Ileum: Circumferential, ulcerated and polypoidal mass at the TI, ICV with narrowing of TI - biopsied were obtained. Multiple attempts to intubate the TI were unsuccessful due to narrowing Cecum: Polypoidal mass/carpet polyp in the cecum adjacent to TI - multiple biopsies obtained and sent for histology and AFP smear and culture Moderate diverticulosis seen in the left colon Moderate hemorrhoids on retroflexed exam. Plan: Await pathology results Repeat Colonoscopy in 6 to 12 months if biopsies confirm malignancy Above findings were reviewed with the patient. Surgeon: Meliton gO MD Anesthesia: MAC (Poly Rodriguez CRNA) Was an Chairman Ceo used for this Procedure?: Yes Chairman Ceo: Magno Dobson Estimated blood loss (mL): 0 Pathology: other (A- CECAL MASS BXS R/O MALIGNANCY. R/O ILEO CECAL TE RBUCLOSIS. PROCESS MOHINDER PLEASE. B- MASS OF TI BXS C- CECAL MASS BXS FOR AF[employer]) Condition: stable Disposition: PACU
[2020-11-20 14:11] LABS: IgA 224 mg/dL (70-320); IgG 816 mg/dL (600-1540); IgM 718 mg/dL (50-300)
[2020-11-20] MEDS: 0.9 % Sodium Chloride Flush 3 ML SYRINGE IVFLUSH ×2 (15:45→21:06)
[2020-11-20] MEDS: Heparin Sodium,Porcine 5,000 UNIT/ML VIAL 5000 UNIT SUBCUT ×2 (15:49→21:05)
[2020-11-20] MEDS: Metoprolol Tartrate 25 MG TABLET PO ×2 (15:51→21:06)
[2020-11-20 16:02] LABS: Vitamin B12 > 2000 pg/mL (200-900)
[2020-11-20] MEDS: Melatonin 3 MG TABLET 6 MG PO (21:47)
[2020-11-21] VITALS (13 sets, daily range): BP systolic 121–152; BP diastolic 77–98; PULSE 95–136; RESP 18–20; TEMP 36.2–37; O2SAT 93–94
[2020-11-21] MEDS: Dextrose 5 % and 0.45 % NaCl 1,000 ML 80 ML IVCONT ×2 (00:24→14:09)
[2020-11-21] MEDS: Piperacillin Sodium/Tazobactam 2.25 GM in 0.9 % Sodium Chloride 50 ML IV ×4 (05:39→23:30)
[2020-11-21] MEDS: Heparin Sodium,Porcine 5,000 UNIT/ML VIAL 5000 UNIT SUBCUT ×3 (05:39→23:30)
[2020-11-21 06:53] LABS: Hematocrit 32.9 % (42-52); Hemoglobin 10.8 g/dl (14.0-18.0); Mean Corpuscular HGB Conc 32.8 g/dl (31.0-36.0); Mean Corpuscular Hemoglobin 31.2 pg (27.0-33.0); Mean Corpuscular Volume 95.1 fL (80-98); Mean Platelet Volume 10.9 fL (9.4-12.4); Platelet Count 234 X10*3/uL (160-400); Red Blood Count 3.46 X10*6/uL (4.60-5.80)
[2020-11-21 07:09] LABS: Anion Gap 15 (12-20); Blood Urea Nitrogen 41 mg/dL (9-16); Calcium 7.8 mg/dL (8.4-10.2); Carbon Dioxide 19 mmol/L (22-29); Chloride 114 mmol/L (96-108); Creatinine Clr Calc Pharmacy 36.9; Estimated Glomerular Filt Rate 47; Glucose Random 139 mg/dL (60-115); Potassium 3.3 mmol/L (3.3-5.1); Sodium 145 mmol/L (135-145)
--- NOTE | 2020-11-21 07:39 | P.PNNP_ITS ---
Subjective Subjective Date of Service: 11/21/20 Interval history: seen and examined this AM overnight events reviewed pt reports no cardiac symptoms -- no cp, sob, no palpitations ROS General - no fevers or chills Cardiovascular - no chest pain Respiratory - no shortness of breath or cough Abdominal- no abdominal pain, nausea, vomiting, diarrhea Physical Exam Vital Signs: Vital Signs: Last Vital Signs Temp 98.6 F 11/21/20 07:00 Pulse 104 H 11/21/20 07:00 Resp 20 11/21/20 07:00 BP 144/87 H 11/21/20 07:00 Pulse Ox 93 11/21/20 07:00 Body Mass Index 22.0 Const: Other: General - no acute distress, appears comfortable Cardiovascular - IRR Lungs - dim, R base > L; Abdomen - soft, nontender, no rebound or guarding Extremities - no edema bilaterally Neuro - awake and alert, no focal deficits General: cooperative, healthy steve earing, comfortable, no acute distress, alert and ill appearing Nutritional Appearance: average body habitus Orientation/consciousness: patient oriented x3 Limitations: no limitations and No language barrier HENMT: Other: Unremarkable Head: Yes normal to inspection, Yes normocephalic and Yes atraumatic Ears: hearing grossly normal bilaterally Face and sinus: Yes other (NG tube in place) Mouth: Normal oral and palatal mucosa present Eyes: Sclerae: sclerae normal Pupils: Equal, round and reactive pupils present Neck: Neck: Yes normal visual inspection, Yes trachea midline and Yes supple Chest: Chest palpation & inspection: normal inspection of the chest Resp: Effort & Inspection: normal respiratory effort Auscultation: clear to auscultation bilaterally, no crackles, no wheezes and diminished lung sounds on the right in the lower lung aparicio Cardio: Jugular venous distension: no JVD Palpation: normal PMI Rate: regular rate Rhythm: regular rhythm Heart sounds: S1 normal heart sound present, S2 normal heart sound present, no gallops, no murmurs and no rubs GI: Other: Distended but softer, nontender, bowel sounds active, no palpable masses Inspection: No distended Palpation (GI): Soft to palpation, not firm, nontender, no guarding and No hepatosplenomegaly present Auscultation: other (decreased bowel sounds) Rectal Exam - Male: Yes deferred Back/Spine/Pelvis: Other: unremarkable Skin: Other: Normal color, warm and dry General skin exam: no rashes or lesions noted Neuro: General: patient oriented x3, gait normal and moves all extremities Cranial nerves: Yes Equal, round and reactive pupils present, Yes Normal hearing present and Yes Other cranial nerve findings present Speech: No Abnormal speech present Extrem: General: Yes normal to inspection and Yes no clubbing, cyanosis or edema Psych: Appearance: grossly normal Mental Status: mental status grossly normal and other Objective Data Labs CBC & Chem 7: 11/21/20 05:56 11/21/20 05:56 Labs: Laboratory Results - last 24 hr 11/17/20 11/20/20 11/20/20 08:05 05:26 05:26 WBC RBC Hgb Hct MCV MCH MCHC RDW Plt Count MPV Absolute Nucleated RBC Nucleated RBC % (auto) Sodium Potassium Chloride Carbon Dioxide Anion Gap BUN Creatinine Estim Creat Clear Calc Estimated GFR Random Glucose Calcium Carcinoembryonic Ag 0.70 Vitamin B12 > 2000 H IgG Total 816 IgA Total 224 IgM 718 H NIA Interpretation SEE NOTE 11/21/20 11/21/20 05:56 05:56 WBC 13.0 H RBC 3.46 L Hgb 10.8 L Hct 32.9 L MCV 95.1 MCH 31.2 MCHC 32.8 RDW 14.0 Plt Count 234 MPV 10.9 Absolute Nucleated RBC 0.000 Nucleated RBC % (auto) 0.0 Sodium 145 Potassium 3.3 Chloride 114 H Carbon Dioxide 19 L Anion Gap 15 BUN 41 H Creatinine 1.44 H Estim Creat Clear Calc 36.9 Estimated GFR 47 Random Glucose 139 H Calcium 7.8 L Carcinoembryonic Ag Vitamin B12 IgG Total IgA Total IgM NIA Interpretation Microbiology Microbiology Results: Microbiology 11/16/20 03:12 Blood - Venous Blood Culture - Final No growth after 5 days. 11/16/20 03:10 Blood - Venous Blood Culture - Final No growth after 5 days. Assessment & Plan Assessment and plan (1) Cardiomyopathy: Status: Acute (2) New onset atrial fibrillation: Status: Acute (3) CKD (chronic kidney disease) stage 2, GFR 60-89 ml/min: Status: Acute (4) Acute renal failure: Status: Acute (5) Dehydration: Status: Acute Assessment and Plan: 80-year-old gentleman who is presenting for small bowel obstruction which has improved with conservative management. 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
[2020-11-21] MEDS: Metoprolol Tartrate 25 MG TABLET PO ×3 (08:18→20:11)
[2020-11-21] MEDS: Digoxin 0.5 MG/2 ML AMPUL 0.25 MG IVPUSH (09:57)
[2020-11-21] MEDS: Potassium Chloride/H20 10 MEQ/100 ML PIGGYBACK 100 MEQ IV ×4 (09:59→14:55)
--- NOTE | 2020-11-21 10:31 | P.PNGS_ITS ---
Subjective Subjective Date of Service: 11/21/20 Interval history: He says he feels well but does not have any appetite. Continues to pass flatus Denies any abdominal pain No nausea or vomiting Physical Exam Vital Signs: Vital Signs: Last Vital Signs Temp 98.6 F 11/21/20 07:00 Pulse 101 H 11/21/20 09:57 Resp 20 11/21/20 07:00 BP 144/78 H 11/21/20 08:18 Pulse Ox 93 11/21/20 07:00 Body Mass Index 22.0 Laboratory Results - last 24 hr 11/17/20 11/20/20 11/20/20 08:05 05:26 05:26 WBC RBC Hgb Hct MCV MCH MCHC RDW Plt Count MPV Absolute Nucleated RBC Nucleated RBC % (a uto) Sodium Potassium Chloride Carbon Dioxide Anion Gap BUN Creatinine Estim Creat Clear Calc Estimated GFR Random Glucose Calcium Carcinoembryonic A g 0.70 Vitamin B12 > 2000 H IgG Total 816 IgA Total 224 IgM 718 H NIA Interpretation SEE NOTE 11/21/20 11/21/20 05:56 05:56 WBC 13.0 H RBC 3.46 L Hgb 10.8 L Hct 32.9 L MCV 95.1 MCH 31.2 MCHC 32.8 RDW 14.0 Plt Count 234 MPV 10.9 Absolute Nucleated RBC 0.000 Nucleated RBC % (a uto) 0.0 Sodium 145 Potassium 3.3 Chloride 114 H Carbon Dioxide 19 L Anion Gap 15 BUN 41 H Creatinine 1.44 H Estim Creat Clear Calc 36.9 Estimated GFR 47 Random Glucose 139 H Calcium 7.8 L Carcinoembryonic A g Vitamin B12 IgG Total IgA Total IgM NIA Interpretation Const: General: comfortable and no acute distress Resp: Effort & Inspection: normal respiratory effort GI: Other: Protuberant but soft, no tenderness no guarding rebound Progress Note: A&P Assessment and plan (1) Small bowel obstruction: Status: Acute Assessment and Plan: Doing well without NG tube Passing flatus Abdomen remained soft Colonoscopy done - biopsies of neoplastic process in the cecum near the above done CT imaging discussed with radiologist - 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 Patient reiterates that he wants to avoid surgery as much as possible If biopsy shows lymphoma, he will benefit from chemotherapy may not need surgery - discussed with oncologist However, if he has obstruction clinically, then he will still likely need resection He understands the plan and says he still hopes to avoid surgery Keep on clear liquids for now Fall Risk Details Current Medications: Current Medications Generic Name Dose Route Start Last Admin Trade Name Carl PRN Reason Stop Dose Admin Acetaminophen 650 mg 11/16/20 05:21 Acetaminophen Supp 650 Mg Supp.Rect AR Q6H PRN Pain, Mild (Pain Scale 1-3) Benzocaine 1 lozenge 11/18/20 10:35 11/19/20 14:30 Throat Lozenge, Medicated Lozenge MUCOUS MEM 1 lozenge Q2H PRN Administration Sore Throat Heparin Sodium (Porcine) 5,000 unit 11/16/20 06:00 11/21/20 05:39 Heparin Sodium,Porcine 5,000 Unit/Ml Vial SUBCUT 5,000 unit Q8H ROCKY Administration Piperacillin Sod/Tazobactam 50 mls @ 100 mls/hr 11/16/20 12:00 11/21/20 06:16 Sod 2.25 gm/ Sodium Chloride IV Infused Q6H ROCKY Infusion Dextrose/Sodium Chloride 1,000 mls @ 80 mls/hr 11/19/20 16:15 11/21/20 00:24 D51/2ns IVCONT 80 mls/hr .[id number] ROCKY Administration Potassium Chloride 10 meq in 100 mls @ 100 mls/hr 11/21/20 09:00 11/21/20 09:59 IV 11/21/20 12:59 100 mls/hr Q1H ROCKY Administration Melatonin 6 mg 11/18/20 20:58 11/20/20 21:47 Melatonin 3 Mg Tablet PO 6 mg BEDTIME PRN Administration Insomnia Metoprolol Tartrate 25 mg 11/20/20 15:00 11/21/20 08:18 Metoprolol Tartrate 25 Mg Tablet PO 25 mg TID ROCKY Administration Protocol Multi-Ingred Medicated Throat [place] 1 spray 11/17/20 11:07 11/17/20 15:29 Throat [place], Medicated 20 Ml Bottle MUCOUS MEM 1 spray Q2H PRN Administration Sore Throat Ondansetron HCl 4 mg 11/18/20 12:13 11/19/20 18:06 Ondansetron Hcl 4 Mg/2 Ml Vial IVPUSH 4 mg Q8H PRN Administration Nausea and Vomiting Sodium Biphosphate/Sodium Phosphate 133 ml 11/20/20 09:57 Sodium Phosphate,[place]-Dibasic 133 Ml Enema AR ONCE PRN Poor Colonoscopy Prep Results Sodium Biphosphate/Sodium Phosphate 133 ml 11/20/20 11:00 11/20/20 10:27 Sodium Phosphate,[place]-Dibasic 133 Ml Enema AR 133 ml ONCE PRN Administration Poor Colonoscopy Prep Results Sodium Chloride 3 ml 11/16/20 08:00 11/21/20 08:19 0.9 % Sodium Chloride Flush 3 Ml Syringe IVFLUSH Not Given QSHIFT [facility] Time Spent With Patient Time: Total time spent is greater than 50% in coordination of care (as documented) at patient's floor/unit and/or counseling patient: Time with patient: 15 - 24 minutes Procedures Date of Service Date of Service: 11/21/20 Quality Stroke Does the patient have a stroke diagnosis?: No VTE Prior VTE?: No VTE Risk Level:: Medical - moderate - high VTE Device Contraindication: N/A - Device Ordered VTE Drug Contraindication: N/A - Med Ordered
--- NOTE | 2020-11-21 11:15 | P.PNIM_ITS ---
Subjective Subjective Date of Service: 11/21/20 Interval History: Seen and examined this morning Follow-up for partial small-bowel obstruction, atrial fibrillation No bowel movement, passing gas. No abdominal pain Denies palpitations Review of Systems Review of Systems: Yes all other systems are reviewed and are negative Constitutional Constitutional: Denies chills and Denies fever(s) Cardiovascular Cardiovascular: Denies chest pain Respiratory Respiratory: Denies cough Gastrointestinal Gastrointestinal: Denies abdominal pain Physical Exam Vital Signs: Vital Signs: Last Vital Signs Temp 98.6 F 11/21/20 07:00 Pulse 101 H 11/21/20 09:57 Resp 20 11/21/20 07:00 BP 144/78 H 11/21/20 08:18 Pulse Ox 93 11/21/20 07:00 Body Mass Index 22.0 Const: General: comfortable, no acute distress, alert and awake Nutritional Appearance: thin Orientation/consciousness: patient oriented x3 HENMT: Head: Yes normocephalic and Yes atraumatic Eyes: Sclerae: sclerae normal Chest: Chest palpation & inspection: normal inspection of the chest Resp: Effort & Inspection: normal respiratory effort and no respiratory distress Cardio: Rate: regular rate Rhythm: abnormal rhythm irregularly irregular GI: Palpation (GI): Soft to palpation and nontender Neuro: General: patient oriented x3 Cranial nerves: Yes CN's II-XII intact bilaterally and Yes Bilaterally intact EOM present Extrem: Other: b/l leg edema Objective Data Current Medications Generic Name Dose Route Start Last Admin Trade Name Freq PRN Reason Stop Dose Admin Acetaminophen 650 mg 11/16/20 05:21 Acetaminophen Supp 650 Mg Supp.Rect NE Q6H PRN Pain, Mild (Pain Scale 1-3) Benzocaine 1 lozenge 11/18/20 10:35 11/19/20 14:30 Throat Lozenge, Medicated Lozenge MUCOUS MEM 1 lozenge Q2H PRN Administration Sore Throat Heparin Sodium (Porcine) 5,000 unit 11/16/20 06:00 11/21/20 05:39 Heparin Sodium,Porcine 5,000 Unit/Ml Vial SUBCUT 5,000 unit Q8H ROCKY Administration Piperacillin Sod/Tazobactam 50 mls @ 100 mls/hr 11/16/20 12:00 11/21/20 06:16 Sod 2.25 gm/ Sodium Chloride IV Infused Q6H ROCKY Infusion Dextrose/Sodium Chloride 1,000 mls @ 80 mls/hr 11/19/20 16:15 11/21/20 00:24 D51/2ns IVCONT 80 mls/hr .[id number] ROCKY Administration Potassium Chloride 10 meq in 100 mls @ 100 mls/hr 11/21/20 09:00 11/21/20 11:10 IV 11/21/20 12:59 100 mls/hr Q1H ROCKY Administration Melatonin 6 mg 11/18/20 20:58 11/20/20 21:47 Melatonin 3 Mg Tablet PO 6 mg BEDTIME PRN Administration Insomnia Metoprolol Tartrate 25 mg 11/20/20 15:00 11/21/20 08:18 Metoprolol Tartrate 25 Mg Tablet PO 25 mg TID ROCKY Administration Protocol Multi-Ingred Medicated Throat [place] 1 spray 11/17/20 11:07 11/17/20 15:29 Throat [place], Medicated 20 Ml Bottle MUCOUS MEM 1 spray Q2H PRN Administration Sore Throat Ondansetron HCl 4 mg 11/18/20 12:13 11/19/20 18:06 Ondansetron Hcl 4 Mg/2 Ml Vial IVPUSH 4 mg Q8H PRN Administration Nausea and Vomiting Sodium Biphosphate/Sodium Phosphate 133 ml 11/20/20 09:57 Sodium Phosphate,[place]-Dibasic 133 Ml Enema NE ONCE PRN Poor Colonoscopy Prep Results Sodium Biphosphate/Sodium Phosphate 133 ml 11/20/20 11:00 11/20/20 10:27 Sodium Phosphate,[place]-Dibasic 133 Ml Enema [place] 133 ml ONCE PRN Administration Poor Colonoscopy Prep Results Sodium Chloride 3 ml 11/16/20 08:00 11/21/20 08:19 0.9 % Sodium Chloride Flush 3 Ml Syringe IVFLUSH Not Given QSHIFT [facility] Labs CBC & Chem 7: 11/21/20 05:56 11/21/20 05:56 Labs: Laboratory Results - last 24 hr 11/17/20 11/20/20 11/20/20 08:05 05:26 05:26 WBC RBC Hgb Hct MCV MCH MCHC RDW Plt Count MPV Absolute Nucleated RBC Nucleated RBC % (auto) Sodium Potassium Chloride Carbon Dioxide Anion Gap BUN Creatinine Estim Creat Clear Calc Estimated GFR Random Glucose Calcium Carcinoembryonic Ag 0.70 Vitamin B12 > 2000 H IgG Total 816 IgA Total 224 IgM 718 H NIA Interpretation SEE NOTE 11/21/20 11/21/20 05:56 05:56 WBC 13.0 H RBC 3.46 L Hgb 10.8 L Hct 32.9 L MCV 95.1 MCH 31.2 MCHC 32.8 RDW 14.0 Plt Count 234 MPV 10.9 Absolute Nucleated RBC 0.000 Nucleated RBC % (auto) 0.0 Sodium 145 Potassium 3.3 Chloride 114 H Carbon Dioxide 19 L Anion Gap 15 BUN 41 H Creatinine 1.44 H Estim Creat Clear Calc 36.9 Estimated GFR 47 Random Glucose 139 H Calcium 7.8 L Carcinoembryonic Ag Vitamin B12 IgG Total IgA Total IgM NIA Interpretation Microbiology Microbiology Results: Microbiology 11/16/20 03:12 Blood Culture - Final Blood - Venous No growth after 5 days. 11/16/20 03:10 Blood Culture - Final Blood - Venous No growth after 5 days. 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 Noted to have KATHLEEN and partial SBO. A. fib RVR HR intermittently elevated Chest pain - resolved; echo likely showing Takatsubo responded to IV metoprolol --- coreg changed to metoprolol oral given second dose of dig this am OAC to be determined once work up for abdominal issues determined Partial SBO possibly secondary to inflammatory vs neoplastic process s/p colonoscopy 11/20, circumferential mass noted at terminal ileum, mass at cecum, pathology pending no BM, passing gas -continue full liquid diet -surgery following Hypernatremia. Likely from IV fluids, improved. Na 145 today -continue D5W -follow BMP Aspiration Pneumonia zosyn day #09/16 KATHLEEN. Likely prerenal, hypovolemia. trending down continue D5-1/2 trend labs -hold PATI-i HTN on multiple meds at home -- all were on hold for SBO and was treated with IV meds; now started on metoprolol for his A. Fib; add back others as bp allows (benazepril, clonidine, nifedipine, atenolol at home) hypothyroidism -continue synthroid DVT prophylaxis: Subcu heparin Code status: Full code Attending Dr. Cordoba
--- NOTE | 2020-11-21 12:13 | PC.NURSE ---
Pt OOB with PT- after walking for a few min pt HR up to 160s with ambulation down the hallway- assessed pt. PT stated that he did feel some shortness of breath and felt his heart was racing a bit. Put pty in wheelchair and wheeled back to room into recliner. At that tiem HR 130s and o2 86% on room air. Pt took ~5min to [id number] to HR of 110-120s o2 of 96% on room air BP 150/96 MD and PA notified. Instructed to hold PT for now. Pt currently denying any palpitations whilst now back in recliner. Just states feeling worn out. Will cont to closely monitor and assess pt status and update w any changes
--- NOTE | 2020-11-21 14:12 | HO.POSTANES ---
Post Anesthesia Evaluation Post Anesthesia Evaluation Vital Signs: Vital Signs Temp Pulse Resp BP Pulse Ox 11/21/20 12:11 150/96 H 11/21/20 12:02 95 142/90 H 93 11/21/20 11:00 97.9 F 95 20 142/90 H 93 11/21/20 09:57 101 H 11/21/20 08:18 132 H 144/78 H 11/21/20 07:00 98.6 F 104 H 20 144/87 H 93 11/21/20 03:00 97.8 F 109 H 18 152/94 H 93 Anesthesia: Monitored Mental Status: Awake Pain Control: Satisfactory Nausea/Vomiting: None Hydration: Adequate Anesthesia-Related Issues: No Anes. Related Issues
[2020-11-21] MEDS: Melatonin 3 MG TABLET 6 MG PO (20:07)
[2020-11-22] VITALS (13 sets, daily range): BP systolic 128–171; BP diastolic 43–102; PULSE 73–132; RESP 14–20; TEMP 36.2–37.1; O2SAT 91–98
[2020-11-22] MEDS: hydrOXYzine HCL 25 MG TABLET PO (00:58)
[2020-11-22] MEDS: traZODone HCL 25 MG HALFTAB PO (00:58)
[2020-11-22] MEDS: Dextrose 5 % and 0.45 % NaCl 1,000 ML 80 ML IVCONT (02:11)
[2020-11-22] MEDS: diphenhydrAMINE HCL 50 MG/ML VIAL 25 MG IVPUSH (05:26)
[2020-11-22] MEDS: Heparin Sodium,Porcine 5,000 UNIT/ML VIAL 5000 UNIT SUBCUT (05:27)
[2020-11-22] MEDS: Piperacillin Sodium/Tazobactam 2.25 GM in 0.9 % Sodium Chloride 50 ML IV ×4 (05:27→23:47)
[2020-11-22] MEDS: Metoprolol Tartrate 5 MG/5 ML VIAL IVPUSH (06:13)
--- NOTE | 2020-11-22 06:24 | PM.EVENT ---
Event Note Date of Service: 11/22/20 Event Note: Patient with increased edema in his bilateral feet, crackles, and decrease in his O2. Chest x-ray shows worsening pleural effusion, bibasilar opacity suggestive of CHF. Will administer 40 mg of IV Lasix, echocardiogram, consult Cardiology,
[2020-11-22 06:27] LABS: Hematocrit 34.9 % (42-52); Hemoglobin 11.4 g/dl (14.0-18.0); Mean Corpuscular HGB Conc 32.7 g/dl (31.0-36.0); Mean Corpuscular Hemoglobin 31.8 pg (27.0-33.0); Mean Corpuscular Volume 97.2 fL (80-98); Mean Platelet Volume 11.1 fL (9.4-12.4); Platelet Count 267 X10*3/uL (160-400); Red Blood Count 3.59 X10*6/uL (4.60-5.80); Red Cell Distribution Width 13.9 % (11.0-16.0)
[2020-11-22] MEDS: Furosemide 40 MG/4 ML VIAL IVPUSH ×3 (06:42→18:10)
[2020-11-22 06:58] LABS: Anion Gap 18 (12-20); Blood Urea Nitrogen 37 mg/dL (9-16); Calcium 8.3 mg/dL (8.4-10.2); Carbon Dioxide 16 mmol/L (22-29); Chloride 114 mmol/L (96-108); Creatinine Clr Calc Pharmacy 36.7; Estimated Glomerular Filt Rate 47; Glucose Random 129 mg/dL (60-115); Magnesium 1.9 mg/dL (1.6-2.6); Potassium 4.1 mmol/L (3.3-5.1); Sodium 144 mmol/L (135-145)
[2020-11-22 07:10] LABS: B Type Natriuretic Peptide 2998 pg/mL (<100); Troponin-I High Sensitivity 862.6 ng/L (<3.5-35.0)
--- NOTE | 2020-11-22 07:14 | ECG_ITS ---
Test Reason : ELEVATED TROPONIN Blood Pressure : / mmHG Vent. Rate : 124 BPM Atrial Rate : 192 BPM P-R Int : 000 ms QRS Dur : 106 ms QT Int : 352 ms P-R-T Axes : 000 -59 103 degrees QTc Int : 505 ms Atrial fibrillation with rapid ventricular response with premature ventricular or aberrantly conducted complexes Left anterior fascicular block Anterior infarct (cited on or before 16-NOV-2020) Abnormal ECG When compared with ECG of 19-NOV-2020 13:05, Atrial fibrillation has replaced Sinus rhythm Criteria for Inferior infarct are no longer Present Anterolateral T wave inversions not present anymore Referred By: Audrey Pierce Electronically Signed By:Rolando Lou
--- NOTE | 2020-11-22 07:26 | PC.NURSE ---
Patient had a difficult night. Very restless/anxious. Pt back and forth from bed to recliner several times. Pt received PO trazodone and atarax with no effect. Hospitalist aware - IV benadryl given, also with no effect. Pt c/o some shortness of breath later in the night, noted to have fine crackles to right lower lobel and new 2+ edema to bilateral legs. IVF stopped. Hospitalist notified and this RN asked about a CXR. Pt also had two, 3 beats of vtach. CXR, BMP, mag and trop ordered this morning. IV lasix also ordered.
--- NOTE | 2020-11-22 07:27 | PM.PNNEP ---
Subjective Subjective Date of Service: 11/22/20 Interval history: Seen and examined this morning Follow-up for partial small-bowel obstruction, atrial fibrillation No bowel movement, passing gas. No abdominal pain Denies palpitations Physical Exam Vital Signs: Vital Signs: Last Vital Signs Temp 98.7 F 11/22/20 03:32 Pulse 105 H 11/22/20 06:45 Resp 20 11/22/20 03:32 BP 132/72 11/22/20 06:45 Pulse Ox 93 11/22/20 03:32 Body Mass Index 22.0 Const: Other: General - no acute distress, appears comfortable Cardiovascular - IRR Lungs - dim, R base > L; Abdomen - soft, nontender, no rebound or guarding Extremities - no edema bilaterally Neuro - awake and alert, no focal deficits General: cooperative, healthy appearing, comfortable, no acute distress, alert, awake and ill appearing Nutritional Appearance: average body habitus and thin Orientation/consciousness: patient oriented x3 Limitations: no limitations and No language barrier HENMT: Other: Unremarkable Head: Yes normal to inspection, Yes normocephalic and Yes atraumatic Ears: hearing grossly normal bilaterally Face and sinus: Yes other (NG tube in place) Mouth: Normal oral and palatal mucosa present Eyes: Sclerae: sclerae normal Pupils: Equal, round and reactive pupils present Neck: Neck: Yes normal visual inspection, Yes trachea midline and Yes supple Chest: Chest palpation & inspection: normal inspection of the chest Resp: Effort & Inspection: normal respiratory effort and no respiratory distress Auscultation: clear to auscultation bilaterally, no crackles, no wheezes and diminished lung sounds on the right in the lower lung aparicio Cardio: Jugular venous distension: no JVD Palpation: normal PMI Rate: regular rate Rhythm: regular rhythm and abnormal rhythm irregularly irregular Heart sounds: S1 normal heart sound present, S2 normal heart sound present, no gallops, no murmurs and no rubs GI: Other: Protuberant but soft, no tenderness no guarding rebound Inspection: No distended Palpation (GI): Soft to palpation, not firm, nontender, no guarding and No hepatosplenomegaly present Auscultation: other (decreased bowel sounds) Rectal Exam - Male: Yes deferred Back/Spine/Pelvis: Other: unremarkable Skin: Other: Normal color, warm and dry General skin exam: no rashes or lesions noted Neuro: General: patient oriented x3, gait normal and moves all extremities Cranial nerves: Yes CN's II-XII intact bilaterally, Yes Equal, round and reactive pupils present, Yes Bilaterally intact EOM present, Yes Normal hearing present and Yes Other cranial nerve findings present Speech: No Abnormal speech present Extrem: Other: b/l leg edema General: Yes normal to inspection and Yes no clubbing, cyanosis or edema Psych: Appearance: grossly normal Mental Status: mental status grossly normal and other Objective Data Labs CBC & Chem 7: 11/22/20 05:24 11/22/20 05:24 Labs: Laboratory Results - last 24 hr 11/22/20 11/22/20 11/22/20 05:24 05:24 05:24 WBC 14.0 H RBC 3.59 L Hgb 11.4 L Hct 34.9 L MCV 97.2 MCH 31.8 MCHC 32.7 RDW 13.9 Plt Count 267 MPV 11.1 Absolute Nucleated RBC 0.000 Nucleated RBC % (auto) 0.0 Sodium 144 Potassium 4.1 D Chloride 114 H Carbon Dioxide 16 L Anion Gap 18 BUN 37 H Creatinine 1.45 H Estim Creat Clear Calc 36.7 Estimated GFR 47 Random Glucose 129 H Calcium 8.3 L D Magnesium 1.9 Troponin I High Sens 862.6 H* D B-Natriuretic Peptide 2998 H 11/22/20 05:24 WBC RBC Hgb Hct MCV MCH MCHC RDW Plt Count MPV Absolute Nucleated RBC Nucleated RBC % (auto) Sodium Cancelled Potassium Cancelled Chloride Cancelled Carbon Dioxide Cancelled Anion Gap Cancelled BUN Cancelled Creatinine Cancelled Estim Creat Clear Calc Cancelled Estimated GFR Cancelled Random Glucose Cancelled Calcium Cancelled Magnesium Cancelled Troponin I High Sens B-Natriuretic Peptide Microbiology Microbiology Results: Microbiology 11/16/20 03:12 Blood - Venous Blood Culture - Final No growth after 5 days. 11/16/20 03:10 Blood - Venous Blood Culture - Final No growth after 5 days. 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 Noted to have KATHLEEN and partial SBO. KATHLEEN. Likely prerenal, hypovolemia. stable creat hold PATI-i CKD with nephrotic range proteinuria baseline cr 1.1 IGM monoclonal await FLC assay met. acidosis [id number] tabs 1 bid Procedures Date of Service Date of Service: 11/22/20 Progress Note: Quality Stroke Does the patient have a stroke diagnosis?: No
--- NOTE | 2020-11-22 08:00 | CA_ITS ---
Transthoracic Echocardiogram Patient (Last, First, Middle): Josh Abdul W Gender: Male Date of : 1940 Age: 80 Procedure Date: 11/22/2020 Procedure Type: Transthoracic Echocardiogram [place] [facility] [place]: 170.18 cm Weight: 63.5 kg BSA: 1.74 m2 Heart Rate: bpm BP: 148 / 102 mmHg Insurance Verifier: Referring MD: Audrey PORRAS Symptoms: nstemi, chf Conclusions: - The left ventricular systolic function is moderate to severely decreased. The visually estimated ejection fraction is between 25-30%. - There is a large thrombus in the left ventricle. The thrombus measures 2.40 cm x 1.30 cm. - The mid anterior, mid inferior, mid anterolateral, mid inferoseptal, mid anteroseptal, and mid inferolateral segments are akinetic. - The entire apex is dyskinetic. - Apical RV segments are akinetic. 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 Findings Left Ventricle Normal left ventricular cavity size. The left ventricular systolic function is moderate to severely decreased. The visually estimated ejection fraction is between 25-30%. There is evidence of regional wall motion abnormalities. Diastolic function is indeterminate on the basis of available data. There is a large thrombus in the left ventricle. The thrombus measures 2.40 cm x 1.30 cm. Wall Motion Rest Echo Findings The mid anterior, mid inferior, mid anterolateral, mid inferoseptal, mid anteroseptal, and mid inferolateral segments are akinetic. The entire apex is dyskinetic. Right Ventricle Normal right ventricular cavity size. There is mildly decreased right ventricular systolic function. Apical RV segments are akinetic. Mitral Valve There is mild mitral annular calcification. Pericardium/Pleural There is no evidence of pericardial effusion. There is a moderate pleural effusion. Prior Study Comparison Changes noted compared to prior study dated: 11/27/2020. Biventricular takotsubo, large apical thrombus. Measurements 2D Linear Measurements LVIDd: 3.56 3.9-5.3/4.2-5.9 cm LVIDd Index: 2.05 2.4-3.2/2.2-3.1 cm/m2 LVIDs: 2.58 2.0-3.6 cm 2D Systolic Function EF 4C: 26.70 >55% EF 2C: 47.00 >55% Updated in Other Vendor System with Status of Final Rolando Lou MD electronically signed on 11/22/2020 9:40:25 PM with status of Final
[2020-11-22] MEDS: Digoxin 0.125 MG TABLET PO (08:17)
[2020-11-22] MEDS: 0.9 % Sodium Chloride Flush 3 ML SYRINGE IVFLUSH ×2 (08:17→17:07)
[2020-11-22] MEDS: Omeprazole 20 MG CAPSULE.DR PO (08:25)
[2020-11-22] MEDS: Levothyroxine Sodium 75 MCG TABLET PO (08:25)
[2020-11-22] MEDS: Sodium Bicarbonate 650 MG TABLET PO ×2 (08:25→21:01)
[2020-11-22] MEDS: Metoprolol Tartrate 50 MG TABLET PO ×3 (08:25→21:01)
[2020-11-22 08:30] LABS: INTERNATIONAL NORM RATIO 1.3 (0.9-1.1); Prothrombin Time 15.4 SEC (9.9-13.0)
[2020-11-22] MEDS: Heparin Sodium,Porcine/1/2NS 25,000 UNIT/250 ML IV.SOLN 7.67 UNIT IVCONT (08:32)
[2020-11-22 08:33] LABS: PTT Heparin Drip 30.1 SEC (53-77.9)
[2020-11-22 09:07] LABS: Troponin-I High Sensitivity 790.1 ng/L (<3.5-35.0)
--- NOTE | 2020-11-22 09:17 | PM.PNCARD ---
Subjective Subjective Date of Service: 11/22/20 Interval history: In AFib with RVR. He is saying he had a panic attack last night. Denies any chest discomfort. Labs reviewed. Physical Exam Vital Signs: Last Vital Signs Temp 98.7 F 11/22/20 03:32 Pulse 103 H 11/22/20 08:25 Resp 20 11/22/20 03:32 BP 148/102 H 11/22/20 08:25 Pulse Ox 93 11/22/20 03:32 Body Mass Index 22.0 GENERAL APPEARANCE: in no acute distress, pleasant. NECK: no carotid bruit, no jugular venous distention. SKIN: no suspicious lesions, warm and dry. HEART: no murmurs, irregular rate and rhythm. LUNGS: clear to auscultation bilaterally. Diminished at right base. ABDOMEN: soft, nontender. Bowel sounds positive EXTREMITIES: no edema. PERIPHERAL PULSES: equal. NEUROLOGIC: No gross deficits, AAO X 3 Results Labs and Meds Result diagrams: 11/22/20 05:24 11/22/20 05:24 Lab results: Laboratory Results - last 24 hr 11/22/20 11/22/20 11/22/20 05:24 05:24 05:24 WBC 14.0 H RBC 3.59 L Hgb 11.4 L Hct 34.9 L MCV 97.2 MCH 31.8 MCHC 32.7 RDW 13.9 Plt Count 267 MPV 11.1 Absolute Nucleated RBC 0.000 Nucleated RBC % (auto) 0.0 PT INR PTT (Heparin Protocol) Sodium 144 Potassium 4.1 D Chloride 114 H Carbon Dioxide 16 L Anion Gap 18 BUN 37 H Creatinine 1.45 H Estim Creat Clear Calc 36.7 Estimated GFR 47 Random Glucose 129 H Calcium 8.3 L D Magnesium 1.9 Troponin I High Sens 862.6 H* D B-Natriuretic Peptide 2998 H 11/22/20 11/22/20 11/22/20 05:24 08:11 08:11 WBC RBC Hgb Hct MCV MCH MCHC RDW Plt Count MPV Absolute Nucleated RBC Nucleated RBC % (auto) PT 15.4 H INR 1.3 H PTT (Heparin Protocol) 30.1 L Sodium Cancelled Potassium Cancelled Chloride Cancelled Carbon Dioxide Cancelled Anion Gap Cancelled BUN Cancelled Creatinine Cancelled Estim Creat Clear Calc Cancelled Estimated GFR Cancelled Random Glucose Cancelled Calcium Cancelled Magnesium Cancelled Troponin I High Sens 790.1 H* B-Natriuretic Peptide Imaging Radiologist's impression: Impressions Chest X-Ray 11/22/20 05:47 IMPRESSION: Bibasilar opacities with associated small pleural effusions; appearance on the left has slightly worsened from prior. Progress Note: A&P Assessment and plan (1) New onset atrial fibrillation: Status: Acute (2) Cardiomyopathy: Status: Acute Assessment and Plan: 80-year-old gentleman with small bowel obstruction which was treated conservatively. He has been found to have colonic mass which was biopsied and result is pending. 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 He had AFib with RVR in this setting. Rates are poorly controlled right now. He was given digoxin IV before. I think we start him on 05/29 5 mcg of digoxin every other day. Increase the metoprolol to 50 mg 3 times a day. He has elevated BNP level as well as troponin levels. EKG was showing anterolateral T-wave inversions. His echocardiography previously has shown apical dyskinesis with normal myocardial wall thickness. I think this does not represent old infarct and this is likely takotsubo. We will repeat a limited echocardiogram today to see if the wall motion has improved or if there is any new changes. He has been started on heparin drip for the AFib because he has been in AFib for more than 48 hours now. Depending on the plan for colonic mass and need for surgery, he can be changed to Eliquis in the future. Thank you for allowing me to participate in the care of your patient. Please feel free to contact me if you have any questions. Fall Risk Details Current Medications: Current Medications Generic Name Dose Route Start Last Admin Trade Name Freq PRN Reason Stop Dose Admin Acetaminophen 650 mg 11/16/20 05:21 Acetaminophen Supp 650 Mg Supp.Rect [place] Q6H PRN Pain, Mild (Pain Scale 1-3) Benzocaine 1 lozenge 11/18/20 10:35 11/19/20 14:30 Throat Lozenge, Medicated Lozenge MUCOUS MEM 1 lozenge Q2H PRN Administration Sore Throat Furosemide 40 mg 11/22/20 06:25 11/22/20 08:17 Furosemide 40 Mg/4 Ml Vial IVPUSH 40 mg BID@0900,1800 [facility] Administration Protocol Heparin Sodium (Porcine) 2,600 unit 11/22/20 07:50 Heparin Sodium,Porcine 5,000 Unit/Ml Vial 40 unit/kg (2600 unit) IVPUSH PROTOCOL BOLUS PRN 40 unit/kg - Heparin Protocol Protocol Heparin Sodium (Porcine) 5,100 unit 11/22/20 07:50 Heparin Sodium,Porcine 5,000 Unit/Ml Vial 80 unit/kg (5100 unit) IVPUSH PROTOCOL BOLUS PRN 80 unit/kg - Heparin Protocol Protocol Piperacillin Sod/Tazobactam 50 mls @ 100 mls/hr 11/16/20 12:00 11/22/20 06:03 Sod 2.25 gm/ Sodium Chloride IV Infused Q6H ROCKY Infusion Heparin Sodium/Sodium Chloride 25,000 unit in 250 mls @ 0 mls/hr 11/22/20 08:00 11/22/20 08:32 IVCONT 12 units/kg/hr .Q0M ROCKY 7.67 mls/hr Administration Protocol Per Protocol Levothyroxine Sodium 75 mcg 11/22/20 09:00 11/22/20 08:25 Levothyroxine Sodium 75 Mcg Tablet PO 75 mcg DAILY ROCKY Administration Melatonin 6 mg 11/18/20 20:58 11/21/20 20:07 Melatonin 3 Mg Tablet PO 6 mg BEDTIME PRN Administration Insomnia Metoprolol Tartrate 50 mg 11/22/20 09:00 11/22/20 08:25 Metoprolol Tartrate 50 Mg Tablet PO 50 mg TID ROCKY Administration Protocol Multi-Ingred Medicated Throat [place] 1 spray 11/17/20 11:07 11/17/20 15:29 Throat [place], Medicated 20 Ml Bottle MUCOUS MEM 1 spray Q2H PRN Administration Sore Throat Omeprazole 20 mg 11/22/20 09:00 11/22/20 08:25 Omeprazole 20 Mg Capsule.Dr PO 20 mg DAILY ROCKY Administration Ondansetron HCl 4 mg 11/18/20 12:13 11/19/20 18:06 Ondansetron Hcl 4 Mg/2 Ml Vial IVPUSH 4 mg Q8H PRN Administration Nausea and Vomiting Sodium Bicarbonate 650 mg 11/22/20 09:00 11/22/20 08:25 Sodium Bicarbonate 650 Mg Tablet PO 650 mg BID ROCKY Administration Sodium Biphosphate/Sodium Phosphate 133 ml 11/20/20 09:57 Sodium Phosphate,Izard-Dibasic 133 Ml Enema [place] ONCE PRN Poor Colonoscopy Prep Results Sodium Biphosphate/Sodium Phosphate 133 ml 11/20/20 11:00 11/20/20 10:27 Sodium Phosphate,Izard-Dibasic 133 Ml Enema [place] 133 ml ONCE PRN Administration Poor Colonoscopy Prep Results Sodium Chloride 3 ml 11/16/20 08:00 11/22/20 08:17 0.9 % Sodium Chloride Flush 3 Ml Syringe IVFLUSH 3 ml QSHIFT ROCKY Administration Time Spent With Patient Time: Total time spent is greater than 50% in coordination of care (as documented) at patient's floor/unit and/or counseling patient: Time with patient: 15 - 24 minutes Progress Note: Quality Stroke Does the patient have a stroke diagnosis?: No Procedures Date of Service Date of Service: 11/22/20
--- NOTE | 2020-11-22 09:56 | PM.PNGS ---
Subjective Subjective Date of Service: 11/22/20 Interval history: Says he had a panic attack last night Now with new onset AFib Passing flatus well Says he had BMs Denies nausea or abdominal pain Physical Exam Vital Signs: Vital Signs: Last Vital Signs Temp 98.7 F 11/22/20 03:32 Pulse 103 H 11/22/20 08:25 Resp 20 11/22/20 03:32 BP 148/102 H 11/22/20 08:25 Pulse Ox 93 11/22/20 03:32 Body Mass Index 22.0 Laboratory Results - last 24 hr 11/22/20 11/22/20 11/22/20 05:24 05:24 05:24 WBC 14.0 H RBC 3.59 L Hgb 11.4 L Hct 34.9 L MCV 97.2 MCH 31.8 MCHC 32.7 RDW 13.9 Plt Count 267 MPV 11.1 Absolute Nucleated RBC 0.000 Nucleated RBC % (a uto) 0.0 PT INR PTT (Heparin Shanelle col) Sodium 144 Potassium 4.1 D Chloride 114 H Carbon Dioxide 16 L Anion Gap 18 BUN 37 H Creatinine 1.45 H Estim Creat Clear Calc 36.7 Estimated GFR 47 Random Glucose 129 H Calcium 8.3 L D Magnesium 1.9 Troponin I High Se ns 862.6 H* D B-Natriuretic Pept lindy 2998 H 11/22/20 11/22/20 11/22/20 05:24 08:11 08:11 WBC RBC Hgb Hct MCV MCH MCHC RDW Plt Count MPV Absolute Nucleated RBC Nucleated RBC % (a uto) PT 15.4 H INR 1.3 H PTT (Heparin Shanelle col) 30.1 L Sodium Cancelled Potassium Cancelled Chloride Cancelled Carbon Dioxide Cancelled Anion Gap Cancelled BUN Cancelled Creatinine Cancelled Estim Creat Clear Calc Cancelled Estimated GFR Cancelled Random Glucose Cancelled Calcium Cancelled Magnesium Cancelled Troponin I High Se ns 790.1 H* B-Natriuretic Pept lindy Const: Other: Appears anxious Resp: Effort & Inspection: normal respiratory effort Cardio: Rhythm: abnormal rhythm GI: Other: Protuberant but soft, no guarding no rebound no tenderness Progress Note: A&P Assessment and plan (1) Small bowel obstruction: Status: Acute Assessment and Plan: Clinically not obstructed at this time Doing well without NG tube as well as GI is concerned Biopsy of cecum still pending CT images as reviewed with 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 However, if he clinically obstructs, may still require resection Now with new onset AFib Patient has expressed desire to avoid surgery if possible Fall Risk Details Current Medications: Current Medications Generic Name Dose Route Start Last Admin Trade Name Frelizz PRN Reason Stop Dose Admin Acetaminophen 650 mg 11/16/20 05:21 Acetaminophen Supp 650 Mg Supp.Rect [place] Q6H PRN Pain, Mild (Pain Scale 1-3) Benzocaine 1 lozenge 11/18/20 10:35 11/19/20 14:30 Throat Lozenge, Medicated Lozenge MUCOUS MEM 1 lozenge Q2H PRN Administration Sore Throat Furosemide 40 mg 11/22/20 06:25 11/22/20 08:17 Furosemide 40 Mg/4 Ml Vial IVPUSH 40 mg BID@0900,1800 ROCKY Administration Protocol Heparin Sodium (Porcine) 2,600 unit 11/22/20 07:50 Heparin Sodium,Porcine 5,000 Unit/Ml Vial 40 unit/kg (2600 unit) IVPUSH PROTOCOL BOLUS PRN 40 unit/kg - Heparin Protocol Protocol Heparin Sodium (Porcine) 5,100 unit 11/22/20 07:50 Heparin Sodium,Porcine 5,000 Unit/Ml Vial 80 unit/kg (5100 unit) IVPUSH PROTOCOL BOLUS PRN 80 unit/kg - Heparin Protocol Protocol Piperacillin Sod/Tazobactam 50 mls @ 100 mls/hr 11/16/20 12:00 11/22/20 06:03 Sod 2.25 gm/ Sodium Chloride IV Infused Q6H ROCKY Infusion Heparin Sodium/Sodium Chloride 25,000 unit in 250 mls @ 0 mls/hr 11/22/20 08:00 11/22/20 08:32 IVCONT 12 units/kg/hr .Q0M ROCKY 7.67 mls/hr Administration Protocol Per Protocol Levothyroxine Sodium 75 mcg 11/22/20 09:00 11/22/20 08:25 Levothyroxine Sodium 75 Mcg Tablet PO 75 mcg DAILY ROCKY Administration Melatonin 6 mg 11/18/20 20:58 11/21/20 20:07 Melatonin 3 Mg Tablet PO 6 mg BEDTIME PRN Administration Insomnia Metoprolol Tartrate 50 mg 11/22/20 09:00 11/22/20 08:25 Metoprolol Tartrate 50 Mg Tablet PO 50 mg TID ROCKY Administration Protocol Multi-Ingred Medicated Throat [place] 1 spray 11/17/20 11:07 11/17/20 15:29 Throat [place], Medicated 20 Ml Bottle MUCOUS MEM 1 spray Q2H PRN Administration Sore Throat Omeprazole 20 mg 11/22/20 09:00 11/22/20 08:25 Omeprazole 20 Mg Capsule.Dr PO 20 mg DAILY ROCKY Administration Ondansetron HCl 4 mg 11/18/20 12:13 11/19/20 18:06 Ondansetron Hcl 4 Mg/2 Ml Vial IVPUSH 4 mg Q8H PRN Administration Nausea and Vomiting Sodium Bicarbonate 650 mg 11/22/20 09:00 11/22/20 08:25 Sodium Bicarbonate 650 Mg Tablet PO 650 mg BID ROCKY Administration Sodium Biphosphate/Sodium Phosphate 133 ml 11/20/20 09:57 Sodium Phosphate,Louisa-Dibasic 133 Ml Enema [place] ONCE PRN Poor Colonoscopy Prep Results Sodium Biphosphate/Sodium Phosphate 133 ml 11/20/20 11:00 11/20/20 10:27 Sodium Phosphate,Louisa-Dibasic 133 Ml Enema [place] 133 ml ONCE PRN Administration Poor Colonoscopy Prep Results Sodium Chloride 3 ml 11/16/20 08:00 11/22/20 08:17 0.9 % Sodium Chloride Flush 3 Ml Syringe IVFLUSH 3 ml QSHIFT ROCKY Administration Time Spent With Patient Time: Total time spent is greater than 50% in coordination of care (as documented) at patient's floor/unit and/or counseling patient: Time with patient: 15 - 24 minutes Procedures Date of Service Date of Service: 11/22/20 Quality Stroke Does the patient have a stroke diagnosis?: No VTE Prior VTE?: No VTE Risk Level:: Medical - moderate - high VTE Device Contraindication: N/A - Device Ordered VTE Drug Contraindication: N/A - Med Ordered
[2020-11-22] MEDS: LORazepam 0.5 MG TABLET 0.25 MG PO ×2 (12:05→21:01)
--- NOTE | 2020-11-22 13:39 | PM.HEMONCPN ---
Medical Summary - Medical Summary Date of Service: 11/22/20 Chief complaint: Weakness Medical Summary: 1. This is a 80-year-old male was been diagnosed with lymphadenopathy noted incidentally on imaging study in 2007. Biopsy-iliac lymph node revealed benign lymph node with sinus drainage reaction and noncaseating granuloma. Flow cytometry showed no atypical immunophenotypic findings. He has remained asymptomatic from the lymph node enlargement for 10 years. Repeat imaging of right hip with MRI in 2018 again showed bilateral inguinal lymphadenopathy which is reported as nonspecific and maximum size of 2 cm. 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 He has stable retroperitoneal lymphadenopathy. Colonoscopy/biopsy was performed, pathology awaited. His hospital course has been complicated by cardiac issues. He has become rather frail but further recommendations to follow after biopsy results are known. I thank you for this consultation. Interval History Interval history: patient resting in bed, appears very tired. He states that he did not get much sleep last 2 days. He is not in any pain but reports extreme fatigue. Denies any chest pain, cough or shortness of breath. Review of Systems - Constitutional Reports as per HPI, Reports no additional constitutional complaints - Neurologic Reports hearing normal, Denies abnormal speech, Denies dizziness, Denies syncope, Denies headache(s), Denies seizure-like activity, Reports weakness PMFSH Medical History: Medical History (Last Reviewed 11/20/20 @ 12:35 by Shruti Glez) Arthritis Basal cell carcinoma Hiatal hernia HTN (hypertension) Hypothyroidism Lymphadenopathy Rosacea Family History: Family History (Last Reviewed 11/20/20 @ 12:35 by Shruti Glez) Father Heart disease Surgical History: Surgical History (Last Reviewed 11/20/20 @ 12:35 by Shruti Glez) Hx of biopsy Hx of colonoscopy Hx of tonsillectomy Hx of total knee replacement Social History: Social History (Last Reviewed 11/20/20 @ 12:35 by Shruti Glez) Living Situation History: Household Members: Spouse Housing: House Alcohol History: Alcohol intake: current Alcohol History Details: Alcohol intake frequency: holiday/special occasion Alcohol type: beer Tobacco History: Patient Tobacco Use Status: Never used Tobacco Cigarette Packs Per Day: 0.5 Substance Use History: Use of substances other than those prescribed or required for medical reasons: No Currently Displaying Signs/Symptoms of Drug Intoxication Withdrawal: No Advance Directives: Are you DNR?: No Advance Directives: No Advance Directives Information Provided: Yes Advance Directives on File: No Homicidal Assessment: Do you have thoughts of harming others: None Do you have a plan to hurt others: No Plan Nutrition Assessment: Recently lost weight without trying: Unsure 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: Yes Current occupational status: retired Home Medications and Allergies Current Medications: Current Medications Generic Name Dose Route Start Last Admin Trade Name Freq PRN Reason Stop Dose Admin Acetaminophen 650 mg 11/16/20 05:21 Acetaminophen Supp 650 Mg Supp.Rect AK Q6H PRN Pain, Mild (Pain Scale 1-3) Aspirin 81 mg 11/23/20 09:00 Aspirin Enteric Coated 81 Mg Tablet.Dr PO DAILY ROCKY Benzocaine 1 lozenge 11/18/20 10:35 11/19/20 14:30 Throat Lozenge, Medicated Lozenge MUCOUS MEM 1 lozenge Q2H PRN Administration Sore Throat Furosemide 40 mg 11/22/20 06:25 11/22/20 08:17 Furosemide 40 Mg/4 Ml Vial IVPUSH 40 mg BID@0900,1800 [facility] Administration Protocol Heparin Sodium (Porcine) 2,600 unit 11/22/20 07:50 Heparin Sodium,Porcine 5,000 Unit/Ml Vial 40 unit/kg (2600 unit) IVPUSH PROTOCOL BOLUS PRN 40 unit/kg - Heparin Protocol Protocol Heparin Sodium (Porcine) 5,100 unit 11/22/20 07:50 Heparin Sodium,Porcine 5,000 Unit/Ml Vial 80 unit/kg (5100 unit) IVPUSH PROTOCOL BOLUS PRN 80 unit/kg - Heparin Protocol Protocol Piperacillin Sod/Tazobactam 50 mls @ 100 mls/hr 11/16/20 12:00 11/22/20 13:38 Sod 2.25 gm/ Sodium Chloride IV Infused Q6H [facility] Infusion Heparin Sodium/Sodium Chloride 25,000 unit in 250 mls @ 0 mls/hr 11/22/20 08:00 11/22/20 08:32 IVCONT 12 units/kg/hr .Q0M ROCKY 7.67 mls/hr Administration Protocol Per Protocol Levothyroxine Sodium 75 mcg 11/22/20 09:00 11/22/20 08:25 Levothyroxine Sodium 75 Mcg Tablet PO 75 mcg DAILY ROCKY Administration Melatonin 6 mg 11/18/20 20:58 11/21/20 20:07 Melatonin 3 Mg Tablet PO 6 mg BEDTIME PRN Administration Insomnia Metoprolol Tartrate 50 mg 11/22/20 09:00 11/22/20 08:25 Metoprolol Tartrate 50 Mg Tablet PO 50 mg TID ROCKY Administration Protocol Multi-Ingred Medicated Throat [place] 1 spray 11/17/20 11:07 11/17/20 15:29 Throat [place], Medicated 20 Ml Bottle MUCOUS MEM 1 spray Q2H PRN Administration Sore Throat Omeprazole 20 mg 11/22/20 09:00 11/22/20 08:25 Omeprazole 20 Mg Capsule.Dr PO 20 mg DAILY ROCKY Administration Ondansetron HCl 4 mg 11/18/20 12:13 11/19/20 18:06 Ondansetron Hcl 4 Mg/2 Ml Vial IVPUSH 4 mg Q8H PRN Administration Nausea and Vomiting Sodium Bicarbonate 650 mg 11/22/20 09:00 11/22/20 08:25 Sodium Bicarbonate 650 Mg Tablet PO 650 mg BID ROCKY Administration Sodium Biphosphate/Sodium Phosphate 133 ml 11/20/20 09:57 Sodium Phosphate,[place]-Dibasic 133 Ml Enema [place] ONCE PRN Poor Colonoscopy Prep Results Sodium Biphosphate/Sodium Phosphate 133 ml 11/20/20 11:00 11/20/20 10:27 Sodium Phosphate,[place]-Dibasic 133 Ml Enema AK 133 ml ONCE PRN Administration Poor Colonoscopy Prep Results Sodium Chloride 3 ml 11/16/20 08:00 11/22/20 08:17 0.9 % Sodium Chloride Flush 3 Ml Syringe IVFLUSH 3 ml QSHIFT [facility] Administration Home Medications Medication Instructions Recorded Confirmed Type atenolol 1 tab PO DAILY 07/24/20 11/16/20 History benazepril 1 tab PO DAILY 07/24/20 11/16/20 History clonidine HCl 1 tab PO BID 07/24/20 11/16/20 History levothyroxine 1 tab PO DAILY 07/24/20 11/16/20 History nifedipine 2 tab PO DAILY 07/24/20 11/16/20 History omeprazole 1 cap PO DAILY 07/24/20 11/16/20 History Allergies Allergy/AdvReac Type Severity Reaction Status Date / Time No Known Allergies Allergy Mild NONE Verified 11/16/20 02:59 Exam Vital signs: Vital Signs Temp 98.7 F 11/22/20 03:32 Pulse 103 H 11/22/20 08:25 Resp 20 11/22/20 03:32 BP 148/102 H 11/22/20 08:25 Pulse Ox 93 11/22/20 03:32 Intake & Output 11/21/20 11/22/20 11/22/20 18:59 06:59 18:59 Intake Total 1500 / 3108.000 1608.000 / 3108.000 50 / 50 Output Total 725 / 1575 850 / 1575 100 / 100 Balance 775 / 1533.000 758.000 / 1533.000 -50 / -50 Urine Output (Average ml/kg/hr) 0.95 1.11 0.13 Intake: Intake, Oral Amount 480 / 480 Intake, IV Amount 1500 / 2628.000 1128.000 / 2628.000 50 / 50 Piperacillin Sodium/Tazobactam 100 / 200 100 / 200 50 / 50 2.25 gm In 0.9 % Sodium Chloride 50 ml @ 100 mls/hr IV Q6H ROCKY Rx#:[id number] Potassium Chloride/H20 10 meq 400 / 400 In 100 ml @ 100 mls/hr IV Q1H ROCKY Rx#:[id number] Dextrose 5 % and 0.45 % NaCl 1, 1000 / 2028.000 1028.000 / 2028.000 0 / 0 000 ml @ 80 mls/hr IVCONT . [id number] ROCKY Rx#:[id number] Output: Output, Urine Amount 725 / 1575 850 / 1575 100 / 100 Other: Breakfast % Eaten 100% Dinner % Eaten 100% Number of Bowel Movements 1 Urine Urinal Urinal Urine Color Yellow Yellow Last Bowel Movement 11/22/20 Stool Bedside Commode Stool Amount Moderate Stool Color Brown Stool Consistency Loose Weight 63.9 kg Body Mass Index 22.0 - Constitutional Present: no acute distress, cachectic - Routine HEENT Exam Head: Present: atraumatic - Routine Respiratory Exam Present: decreased breath sounds - Routine Cardiovascular Exam Cardiovascular: Present: tachycardia - Routine Abdominal Exam Present: distended, hypoactive bowel sounds - Routine Extremities Exam Present: nontender Data - Labs CBC & Chem 7: 11/22/20 05:24 11/22/20 05:24 Labs: 11/16/20 XR chest 1V Stat XR chest 1V Stat 11/16/20 03:00 IV insert/maintain .Now 11/16/20 03:10 Basic Metabolic Panel Stat Complete Blood Count Man Dif Stat Lactic Acid Stat Lipase Stat Liver Panel Stat Troponin-I High Sensitivity Stat 11/16/20 03:12 Blood Culture X2 [BC] Stat 11/16/20 03:15 0.9 % Sodium Chloride [Ns] 1,000 ml IV 999 mls/hr 11/16/20 03:21 COVID-19 ID NOW (Metzger) Stat 11/16/20 03:28 CT abdomen pelvis wo con Stat 11/16/20 04:20 HYDROmorphone HCl [Dilaudid] 0.5 mg IVPUSH ONCE ONE 11/16/20 04:30 0.9 % Sodium Chloride [Ns] 1,000 ml IV 999 mls/hr 11/16/20 05:12 XR chest 1V Stat 11/16/20 05:21 Labetalol HCL [Normodyne] 10 mg IVPUSH Q4H PRN 11/16/20 05:22 NPO Diet 11/16/20 05:27 Transfer Order Routine 11/16/20 05:30 0.9 % Sodium Chloride [Ns] 1,000 ml IV 999 mls/hr Azithromycin [Zithromax] 500 mg 0.9 % Sodium Chloride [Ns] 250 ml IV Q24H Dextrose 5 % and 0.45 % NaCl [D51/2Ns] 1,000 ml IVCONT 100 mls/hr cefTRIAXone sodium [Rocephin] 1 gm 0.9 % Sodium Chloride [Ns] 50 ml IV Q24H metroNIDAZOLE/NS [Flagyl] 500 mg in 100 ml IV Q8H 11/16/20 05:34 ECG 12 lead EKG Stat EKG Documentation DIRECTED 11/16/20 05:57 HYDROmorphone HCl [Dilaudid] 0.5 mg IVPUSH Q4H PRN 11/16/20 05:58 Add Laboratory Test Stat 11/16/20 05:59 cefTRIAXone sodium [Rocephin] 1 gm .ROUTE .STK-MED ONE 11/16/20 06:00 Heparin Sodium,Porcine 5,000 unit SUBCUT Q8H 11/16/20 06:30 Pantoprazole Sodium [Protonix] 40 mg IVPUSH DAILY@0630 11/16/20 07:10 Troponin-I High Sensitivity Routine 11/16/20 07:49 Azithromycin [Zithromax] 500 mg IV .STK-MED ONE 11/16/20 09:31 Communication Order NOW 11/16/20 09:33 B Type Natriuretic Peptide Stat Basic Metabolic Panel Routine 11/16/20 12:44 Piperacillin Sodium/Tazobactam [Zosyn] 2.25 gm IV .STK-MED ONE 11/16/20 16:41 Piperacillin Sodium/Tazobactam [Zosyn] 2.25 gm IV .STK-MED ONE 11/17/20 Protein Electrophoresis,Ran Ur Stat 11/17/20 00:03 Piperacillin Sodium/Tazobactam [Zosyn] 2.25 gm IV .STK-MED ONE 11/17/20 00:12 Piperacillin Sodium/Tazobactam [Zosyn] 2.25 gm IV .STK-MED ONE 11/17/20 05:21 Piperacillin Sodium/Tazobactam [Zosyn] 2.25 gm IV .STK-MED ONE 11/17/20 05:50 B Type Natriuretic Peptide Routine Basic Metabolic Panel AM Complete Blood Count Man Dif Routine 11/17/20 08:00 Lactated Ringers [Lr] 1,000 ml IVCONT 125 mls/hr 11/17/20 08:05 Immunofixation Pnl, Serum Stat Protein Electrophoresis, Serum Stat 11/17/20 11:07 Piperacillin Sodium/Tazobactam [Zosyn] 2.25 gm IV .STK-MED ONE 11/17/20 15:14 Piperacillin Sodium/Tazobactam [Zosyn] 2.25 gm IV .STK-MED ONE 11/17/20 23:11 Piperacillin Sodium/Tazobactam [Zosyn] 2.25 gm IV .STK-MED ONE 11/18/20 ECG [address] abdomen pelvis wo con Stat 11/18/20 04:25 Basic Metabolic Panel AM Complete Blood Count no Diff AM 11/18/20 05:09 Piperacillin Sodium/Tazobactam [Zosyn] 2.25 gm IV .STK-MED ONE 11/18/20 07:30 CA echo transthorac w con Routine 11/18/20 08:32 Perflutren Lipid Microspheres [Definity] 2.2 mg IVPUSH .STK-MED ONE 11/18/20 10:57 Piperacillin Sodium/Tazobactam [Zosyn] 2.25 gm IV .STK-MED ONE 11/18/20 13:45 carvediloL [Coreg] 3.125 mg PO BID 11/18/20 18:45 Piperacillin Sodium/Tazobactam [Zosyn] 2.25 gm IV .STK-MED ONE 11/18/20 20:43 EKG Documentation DIRECTED 11/18/20 20:58 Basic Metabolic Panel Stat Magnesium Stat 11/18/20 22:35 Metoprolol Tartrate [Lopressor] 5 mg IVPUSH ONCE ONE 11/19/20 ECG 12 lead EKG Routine 11/19/20 00:44 Piperacillin Sodium/Tazobactam [Zosyn] 2.25 gm IV .STK-MED ONE 11/19/20 06:07 Piperacillin Sodium/Tazobactam [Zosyn] 2.25 gm IV .STK-MED ONE 11/19/20 08:49 Basic Metabolic Panel Stat 11/19/20 09:29 Clear Liquid Diet 11/19/20 10:00 Dextrose 5 % [D5w] 1,000 ml IVCONT 100 mls/hr 11/19/20 10:11 Communication Order NOW 11/19/20 10:27 Piperacillin Sodium/Tazobactam [Zosyn] 2.25 gm IV .STK-MED ONE 11/19/20 11:56 EKG Documentation DIRECTED 11/19/20 14:00 PEG 3350/Na Sulf,Bicarb,Cl/KCL [Gavilyte-C Solution] 4,000 ml PO ONCE ONE 11/19/20 14:49 Basic Metabolic Panel Stat 11/19/20 16:15 Dextrose 5 % and 0.45 % NaCl [D51/2Ns] 1,000 ml IVCONT 80 mls/hr 11/19/20 18:00 Piperacillin Sodium/Tazobactam [Zosyn] 2.25 gm IV .STK-MED ONE 11/20/20 XR chest 1V Stat 11/20/20 00:29 Piperacillin Sodium/Tazobactam [Zosyn] 2.25 gm IV .STK-MED ONE 11/20/20 05:26 Basic Metabolic Panel Routine Carcinoembryonic Antigen Routine Vitamin B12 Routine 11/20/20 05:27 Complete Blood Count no Diff AM 11/20/20 05:43 Piperacillin Sodium/Tazobactam [Zosyn] 2.25 gm IV .STK-MED ONE 11/20/20 06:00 NPO Diet 11/20/20 06:01 Metoprolol Tartrate [Lopressor] 5 mg IVPUSH ONCE ONE 11/20/20 09:00 Metoprolol Tartrate [Lopressor] 5 mg IVPUSH ONCE ONE 11/20/20 10:00 Digoxin [Lanoxin] 0.25 mg IVPUSH ONCE ONE 11/20/20 10:58 Piperacillin Sodium/Tazobactam [Zosyn] 2.25 gm IV .STK-MED ONE 11/20/20 13:16 Vital Signs Q5MIN 11/20/20 13:54 Labetalol HCL [Normodyne] 100 mg .ROUTE .STK-MED ONE Lidocaine HCl 2 % MPF [Xylocaine 2 % MPF] 5 ml .ROUTE .STK-MED ONE propofoL [Diprivan] 200 mg IVPUSH .STK-MED ONE 11/20/20 14:31 ePHEDrine sulfate 50 mg .ROUTE .STK-MED ONE 11/20/20 15:00 Metoprolol Tartrate [Lopressor] 25 mg PO TID 11/20/20 15:11 Add Laboratory Test Routine 11/20/20 16:55 Piperacillin Sodium/Tazobactam [Zosyn] 2.25 gm IV .STK-MED ONE 11/20/20 23:44 Piperacillin Sodium/Tazobactam [Zosyn] 2.25 gm IV .STK-MED ONE 11/21/20 05:32 Piperacillin Sodium/Tazobactam [Zosyn] 2.25 gm IV .STK-MED ONE 11/21/20 05:56 Basic Metabolic Panel AM Complete Blood Count no Diff AM 11/21/20 08:25 Digoxin [Lanoxin] 0.25 mg IVPUSH ONCE ONE 11/21/20 09:00 Potassium Chloride/H20 10 meq in 100 ml IV Q1H 11/21/20 11:02 Piperacillin Sodium/Tazobactam [Zosyn] 2.25 gm IV .STK-MED ONE 11/21/20 17:49 Piperacillin Sodium/Tazobactam [Zosyn] 2.25 gm IV .STK-MED ONE 11/21/20 23:23 Piperacillin Sodium/Tazobactam [Zosyn] 2.25 gm IV .STK-MED ONE 11/22/20 XR chest 1V Stat 11/22/20 00:40 hydrOXYzine HCL [Atarax] 25 mg PO ONCE ONE traZODone HCL [Desyrel] 25 mg PO ONCE ONE 11/22/20 05:04 diphenhydrAMINE HCL [Benadryl] 25 mg IVPUSH ONCE ONE 11/22/20 05:18 Piperacillin Sodium/Tazobactam [Zosyn] 2.25 gm IV .STK-MED ONE 11/22/20 05:24 B Type Natriuretic Peptide Stat Basic Metabolic Panel DAILY@0600 Complete Blood Count no Diff AM Magnesium Routine Troponin-I High Sensitivity Stat 11/22/20 05:47 Metoprolol Tartrate [Lopressor] 5 mg IVPUSH ONCE ONE 11/22/20 07:14 ECG 12 lead EKG Stat EKG Documentation DIRECTED 11/22/20 07:46 Digoxin [Lanoxin] 0.125 mg PO ONCE ONE 11/22/20 08:11 PTT Heparin Drip Stat Prothrombin Time INR Stat Troponin-I High Sensitivity Routine 11/22/20 09:00 Furosemide [Lasix] 40 mg IVPUSH BID@0900,1800 11/22/20 11:41 LORazepam [Ativan] 0.25 mg PO ONCE ONE 11/22/20 11:57 Piperacillin Sodium/Tazobactam [Zosyn] 2.25 gm IV .STK-MED ONE Laboratory Last Values WBC 14.0 X10*3/uL (4.8-10.8) H 11/22/20 05:24 RBC 3.59 X10*6/uL (4.60-5.80) L 11/22/20 05:24 Hgb 11.4 g/dl (14.0-18.0) L 11/22/20 05:24 Hct 34.9 % (42-52) L 11/22/20 05:24 MCV 97.2 fL (80-98) 11/22/20 05:24 MCH 31.8 pg (27.0-33.0) 11/22/20 05:24 MCHC 32.7 g/dl (31.0-36.0) 11/22/20 05:24 RDW 13.9 % (11.0-16.0) 11/22/20 05:24 Plt Count 267 X10*3/uL (160-400) 11/22/20 05:24 MPV 11.1 fL (9.4-12.4) 11/22/20 05:24 Immature Gran % (Auto) Cancelled 11/17/20 05:50 Neut % (Auto) Cancelled 11/17/20 05:50 Lymph % (Auto) Cancelled 11/17/20 05:50 [place] % (Auto) Cancelled 11/17/20 05:50 Eos % (Auto) Cancelled 11/17/20 05:50 Baso % (Auto) Cancelled 11/17/20 05:50 Lymph # (Auto) Cancelled 11/17/20 05:50 [place] # (Auto) Cancelled 11/17/20 05:50 Eos # (Auto) Cancelled 11/17/20 05:50 Baso # (Auto) Cancelled 11/17/20 05:50 Abs Immat Gran (auto) Cancelled 11/17/20 05:50 Absolute Neuts (auto) Cancelled 11/17/20 05:50 Absolute Nucleated RBC 0.000 X10*3/uL (0.0-0.012) 11/22/20 05:24 Nucleated RBC % (auto) 0.0 /100WBC (0.0-0.2) 11/22/20 05:24 Neutrophils % (Manual) 20 % (45-73) L 11/17/20 05:50 Band Neutrophils % 69 % (3-5) H 11/17/20 05:50 Lymphocytes % (Manual) 3 % (20-40) L 11/17/20 05:50 Atypical Lymphs % (Man) 2 % (0-6) 11/16/20 03:10 Monocytes % (Manual) 6 % (2-11) 11/17/20 05:50 Metamyelocytes % 2 % 11/17/20 05:50 Abs Neuts (Manual) 13.4 X10*3/uL (2.2-7.9) H 11/17/20 05:50 Lymphocytes # (Manual) 0.5 X10*3/uL (0.6-4.8) L 11/17/20 05:50 Monocytes # (Manual) 0.9 X10*3/uL (0.0-1.2) 11/17/20 05:50 Metamyelocytes # 0.3 X10*3/uL 11/17/20 05:50 Toxic Vacuolation PRESENT 11/17/20 05:50 Platelet Estimate NORMAL (NORMAL) 11/17/20 05:50 Large Platelets PRESENT 11/16/20 03:10 Plt Morphology Comment NORMAL 11/17/20 05:50 RBC Morphology NOTED 11/17/20 05:50 Acanthocytes (Spur) 3+ (>5) /OIF 11/17/20 05:50 PT 15.4 SEC (9.9-13.0) H 11/22/20 08:11 INR 1.3 (0.9-1.1) H 11/22/20 08:11 PTT (Heparin Protocol) 30.1 SEC (53-77.9) L 11/22/20 08:11 Sodium 144 mmol/L (135-145) 11/22/20 05:24 Sodium Cancelled 11/22/20 05:24 Potassium 4.1 mmol/L (3.3-5.1) D 11/22/20 05:24 Potassium Cancelled 11/22/20 05:24 Chloride 114 mmol/L (96-108) H 11/22/20 05:24 Chloride Cancelled 11/22/20 05:24 Carbon Dioxide 16 mmol/L (22-29) L 11/22/20 05:24 Carbon Dioxide Cancelled 11/22/20 05:24 Anion Gap 18 (12-20) 11/22/20 05:24 Anion Gap Cancelled 11/22/20 05:24 BUN 37 mg/dL (9-16) H 11/22/20 05:24 BUN Cancelled 11/22/20 05:24 Creatinine 1.45 mg/dL (0.5-1.4) H 11/22/20 05:24 Creatinine Cancelled 11/22/20 05:24 Estim Creat Clear Calc 36.7 11/22/20 05:24 Estim Creat Clear Calc Cancelled 11/22/20 05:24 Estimated GFR 47 11/22/20 05:24 Estimated GFR Cancelled 11/22/20 05:24 Random Glucose 129 mg/dL (60-115) H 11/22/20 05:24 Random Glucose Cancelled 11/22/20 05:24 Lactic Acid 1.9 mmol/L (0.5-2.0) 11/16/20 03:10 Calcium 8.3 mg/dL (8.4-10.2) L D 11/22/20 05:24 Calcium Cancelled 11/22/20 05:24 Magnesium 1.9 mg/dL (1.6-2.6) 11/22/20 05:24 Magnesium Cancelled 11/22/20 05:24 Total Bilirubin 1.2 mg/dL (0.0-1.0) H 11/16/20 03:10 Direct Bilirubin 0.5 mg/dL (0.0-0.5) 11/16/20 03:10 AST 19 U/L (5-37) 11/16/20 03:10 ALT 13 U/L (0-40) 11/16/20 03:10 Alkaline Phosphatase 80 U/L (39-117) 11/16/20 03:10 Troponin I High Sens 790.1 ng/L (<3.5-35.0) H* 11/22/20 08:11 B-Natriuretic Peptide 2998 pg/mL (<100) H 11/22/20 05:24 Total Protein 7.1 g/dL (6.5-8.0) 11/16/20 03:10 Total Protein (PEP) 6.7 g/dL (6.1-8.1) 11/17/20 08:05 Albumin 3.9 g/dL (3.5-5.0) 11/16/20 03:10 Albumin (PEP) 3.2 g/dL (3.8-4.8) L 11/17/20 08:05 Famou-6-Imfjsixne 0.7 g/dL (0.2-0.3) H 11/17/20 08:05 Brlvg-0-Lmxmnlnge 0.9 g/dL (0.5-0.9) 11/17/20 08:05 Pkew-7-Cnycvdsd 0.4 g/dL (0.4-0.6) 11/17/20 08:05 Qnda-9-Mtlmkfhz 0.4 g/dL (0.2-0.5) 11/17/20 08:05 Gamma Globulins 1.2 g/dL (0.8-1.7) 11/17/20 08:05 Abnorm Protein Band 1 0.5 g/dL (NONE DETECTED) H 11/17/20 08:05 Abnorm Protein Band 2 TNP 11/17/20 08:05 Abnorm Protein Band 3 TNP 11/17/20 08:05 PEP Interpretation SEE NOTE 11/17/20 08:05 Lipase 11 U/L (8-78) 11/16/20 03:10 Carcinoembryonic Ag 0.70 ng/mL 11/20/20 05:26 Vitamin B12 > 2000 pg/mL (200-900) H 11/20/20 05:26 Urine Color YELLOW 11/16/20 04:31 Urine Appearance CLEAR 11/16/20 04:31 Urine pH 6.0 (5.0-8.0) 11/16/20 04:31 Ur Specific [place] 1.020 (1.005-1.025) 11/16/20 04:31 Urine Protein 2+ MG/DL (NEG-TRACE) H 11/16/20 04:31 Urine Glucose (UA) NEG MG/DL (NEG) 11/16/20 04:31 Urine Ketones NEG MG/DL (NEG) 11/16/20 04:31 Urine Blood NEG (NEG) 11/16/20 04:31 Urine Nitrite NEG (NEG) 11/16/20 04:31 Ur Leukocyte Esterase NEG (NEG) 11/16/20 04:31 Urine RBC 0 /HPF (0) 11/16/20 04:31 Urine WBC 0-2 /HPF (0-4) 11/16/20 04:31 Ur Squamous Epith Cells TRACE /LPF 11/16/20 04:31 Ur Renal Epithelial Cell 1+ /LPF 11/16/20 04:31 Urine Bacteria NONE /LPF 11/16/20 04:31 Hyaline Casts 0-2 /LPF 11/16/20 04:31 Urine Mucus TRACE /LPF 11/16/20 04:31 U [place] Prot/Creat Ratio 1.742 (0.022-0.128) H 11/17/20 Unknown Ur Creatinine mg/dL 97 mg/dL (20-320) 11/17/20 Unknown U Total Protein mg/dL 169 mg/dL (5-25) H 11/17/20 Unknown Protein/Creatinin Ratio 1742 mg/g creat (22-128) H 11/17/20 Unknown Urine Albumin (%) 44 % 11/17/20 Unknown U Bfloj-9-Ucveoayv (%) 2 % 11/17/20 Unknown U Gmshs-5-Bqwtjsmd (%) 10 % 11/17/20 Unknown U Beta Globulin (%) 18 % 11/17/20 Unknown U Gamma Globulin (%) 26 % 11/17/20 Unknown U Abnormal Prot Band 1 SEE NOTE mg/dL (NONE DETECTED) 11/17/20 Unknown U Abnormal Prot Band 2 TNP 11/17/20 Unknown U Abnormal Prot Band 3 TNP 11/17/20 Unknown Urine PEP Interpret SEE NOTE 11/17/20 Unknown IgG Total 816 mg/dL (600-1540) 11/17/20 08:05 IgA Total 224 mg/dL (70-320) 11/17/20 08:05 IgM 718 mg/dL (50-300) H 11/17/20 08:05 NIA Interpretation SEE NOTE 11/17/20 08:05 COVID-19 (WILLIAM) Negative (Negative) 11/16/20 03:21 COVID-19 Clin Com See Note 11/16/20 03:21 - Imaging Radiologist's impression: ITS Impressions Abdomen/Pelvis CT 11/16/20 03:28 IMPRESSION: Dilated small bowel with air-fluid levels, extending to the level of the terminal ileum. There is prominent wall thickening again noted, as seen on previous imaging. Neoplasm can have this appearance, particularly lymphoma. This is likely partially obstructive given the overall appearance on the study. Prominent adjacent right lower quadrant lymph nodes are seen, increased from prior. Persistent somewhat prominent retroperitoneal lymph nodes. Right middle lobe consolidation. This is concerning for pneumonia. Aspiration possible. Chest X-Ray 11/16/20 05:12 IMPRESSION: Known right middle lobe airspace opacity. This could represent atelectasis or pneumonia, better seen on the prior CT. Chest X-Ray 11/16/20 11:39 IMPRESSION: * The tip of the NG tube overlies the right lower lobe. Recommend repositioning. * There is consolidation of the right middle lobe. * Persistently dilated small bowel loops are observed within the abdomen. The critical test result was discussed with Dr. Gayatri Thompson at 12:18 PM on 11/16/2020 and it was ascertained that the content and the importance of the findings was understood at the time of the direct communication. Chest X-Ray 11/16/20 12:53 IMPRESSION: Gastric tube has been adjusted now properly passing below the diaphragm into the stomach. Exam otherwise unchanged, infiltrates/atelectasis at right lung base. Dilated bowel loops under the diaphragm. Abdomen/Pelvis CT 11/18/20 14:34 IMPRESSION: Persistent circumferential wall thickening of the distal ileum and proximal cecum again concerning for a mass, particularly lymphoma. There are dilated fluid-filled loops of small bowel proximal to this region. Small bowel appears slightly less dilated than seen on 11/18/2020 exam. New nasogastric tube in the stomach. Enlarged pericolic and small bowel mesentery and retroperitoneal lymph nodes that appear unchanged. Large right middle and right lower lobe pneumonia and small right pleural effusion similar to previous exams. Bilateral renal cysts. Chest X-Ray 11/20/20 10:39 IMPRESSION: Enteric tube has been removed. There is elevated right hemidiaphragm with underlying atelectasis.. Chest X-Ray 11/22/20 05:47 IMPRESSION: Bibasilar opacities with associated small pleural effusions; appearance on the left has slightly worsened from prior. Progress Note: A/P (1) Lymphadenopathy Status: Chronic - Time Spent With Patient Time Spent with Patient (in minutes): 15
--- NOTE | 2020-11-22 14:10 | HO.PM.IMPN ---
Subjective Subjective Date of Service: 11/22/20 Interval History: seen and examined this morning follow up for psbo, afib, colon lesion overnight went into afib with RVR and became short of breath, trop and bnp were elevated, was started on lasix this morning patient denies chest pain, reporting mild palpitations and shortness of breath, feeling a little anxious Review of Systems Review of Systems: Yes all other systems are reviewed and are negative Constitutional Constitutional: Denies chills and Denies fever(s) Cardiovascular Cardiovascular: Denies chest pain and Reports palpitations Respiratory Respiratory: Denies cough Gastrointestinal Gastrointestinal: Denies abdominal pain Endocrine Endocrine: Reports palpitations Physical Exam Vital Signs: Vital Signs: Last Vital Signs Temp 98.7 F 11/22/20 03:32 Pulse 103 H 11/22/20 08:25 Resp 20 11/22/20 03:32 BP 148/102 H 11/22/20 08:25 Pulse Ox 93 11/22/20 03:32 Body Mass Index 22.0 Const: General: comfortable, no acute distress, alert and awake Nutritional Appearance: thin Orientation/consciousness: patient oriented x3 HENMT: Head: Yes normocephalic and Yes atraumatic Eyes: Sclerae: sclerae normal Chest: Chest palpation & inspection: normal inspection of the chest Resp: Effort & Inspection: normal respiratory effort and no respiratory distress Cardio: Jugular venous distension: no JVD Rate: tachycardic Rhythm: abnormal rhythm irregularly irregular GI: Palpation (GI): Soft to palpation and nontender Neuro: General: patient oriented x3 Cranial nerves: Yes CN's II-XII intact bilaterally and Yes Bilaterally intact EOM present Extrem: Other: b/l leg edema Objective Data Current Medications Generic Name Dose Route Start Last Admin Trade Name Freq PRN Reason Stop Dose Admin Acetaminophen 650 mg 11/16/20 05:21 Acetaminophen Supp 650 Mg Supp.Rect [place] Q6H PRN Pain, Mild (Pain Scale 1-3) Aspirin 81 mg 11/23/20 09:00 Aspirin Enteric Coated 81 Mg Tablet.Dr PO DAILY ROCKY Benzocaine 1 lozenge 11/18/20 10:35 11/19/20 14:30 Throat Lozenge, Medicated Lozenge MUCOUS MEM 1 lozenge Q2H PRN Administration Sore Throat Furosemide 40 mg 11/22/20 06:25 11/22/20 08:17 Furosemide 40 Mg/4 Ml Vial IVPUSH 40 mg BID@0900,1800 ROCKY Administration Protocol Heparin Sodium (Porcine) 2,600 unit 11/22/20 07:50 Heparin Sodium,Porcine 5,000 Unit/Ml Vial 40 unit/kg (2600 unit) IVPUSH PROTOCOL BOLUS PRN 40 unit/kg - Heparin Protocol Protocol Heparin Sodium (Porcine) 5,100 unit 11/22/20 07:50 Heparin Sodium,Porcine 5,000 Unit/Ml Vial 80 unit/kg (5100 unit) IVPUSH PROTOCOL BOLUS PRN 80 unit/kg - Heparin Protocol Protocol Piperacillin Sod/Tazobactam 50 mls @ 100 mls/hr 11/16/20 12:00 11/22/20 13:38 Sod 2.25 gm/ Sodium Chloride IV Infused Q6H ROCKY Infusion Heparin Sodium/Sodium Chloride 25,000 unit in 250 mls @ 0 mls/hr 11/22/20 08:00 11/22/20 08:32 IVCONT 12 units/kg/hr .Q0M ROCKY 7.67 mls/hr Administration Protocol Per Protocol Levothyroxine Sodium 75 mcg 11/22/20 09:00 11/22/20 08:25 Levothyroxine Sodium 75 Mcg Tablet PO 75 mcg DAILY ROCKY Administration Melatonin 6 mg 11/18/20 20:58 11/21/20 20:07 Melatonin 3 Mg Tablet PO 6 mg BEDTIME PRN Administration Insomnia Metoprolol Tartrate 50 mg 11/22/20 09:00 11/22/20 08:25 Metoprolol Tartrate 50 Mg Tablet PO 50 mg TID ROCKY Administration Protocol Multi-Ingred Medicated Throat [place] 1 spray 11/17/20 11:07 11/17/20 15:29 Throat [place], Medicated 20 Ml Bottle MUCOUS MEM 1 spray Q2H PRN Administration Sore Throat Omeprazole 20 mg 11/22/20 09:00 11/22/20 08:25 Omeprazole 20 Mg Capsule.Dr PO 20 mg DAILY ROCKY Administration Ondansetron HCl 4 mg 11/18/20 12:13 11/19/20 18:06 Ondansetron Hcl 4 Mg/2 Ml Vial IVPUSH 4 mg Q8H PRN Administration Nausea and Vomiting Sodium Bicarbonate 650 mg 11/22/20 09:00 11/22/20 08:25 Sodium Bicarbonate 650 Mg Tablet PO 650 mg BID ROCKY Administration Sodium Biphosphate/Sodium Phosphate 133 ml 11/20/20 09:57 Sodium Phosphate,[place]-Dibasic 133 Ml Enema [place] ONCE PRN Poor Colonoscopy Prep Results Sodium Biphosphate/Sodium Phosphate 133 ml 11/20/20 11:00 11/20/20 10:27 Sodium Phosphate,[place]-Dibasic 133 Ml Enema [place] 133 ml ONCE PRN Administration Poor Colonoscopy Prep Results Sodium Chloride 3 ml 11/16/20 08:00 11/22/20 08:17 0.9 % Sodium Chloride Flush 3 Ml Syringe IVFLUSH 3 ml QSHIFT ROCKY Administration Labs CBC & Chem 7: 11/22/20 05:24 11/22/20 05:24 Labs: Laboratory Results - last 24 hr 11/22/20 11/22/20 11/22/20 05:24 05:24 05:24 WBC 14.0 H RBC 3.59 L Hgb 11.4 L Hct 34.9 L MCV 97.2 MCH 31.8 MCHC 32.7 RDW 13.9 Plt Count 267 MPV 11.1 Absolute Nucleated RBC 0.000 Nucleated RBC % (auto) 0.0 PT INR PTT (Heparin Protocol) Sodium 144 Potassium 4.1 D Chloride 114 H Carbon Dioxide 16 L Anion Gap 18 BUN 37 H Creatinine 1.45 H Estim Creat Clear Calc 36.7 Estimated GFR 47 Random Glucose 129 H Calcium 8.3 L D Magnesium 1.9 Troponin I High Sens 862.6 H* D B-Natriuretic Peptide 2998 H 11/22/20 11/22/20 11/22/20 05:24 08:11 08:11 WBC RBC Hgb Hct MCV MCH MCHC RDW Plt Count MPV Absolute Nucleated RBC Nucleated RBC % (auto) PT 15.4 H INR 1.3 H PTT (Heparin Protocol) 30.1 L Sodium Cancelled Potassium Cancelled Chloride Cancelled Carbon Dioxide Cancelled Anion Gap Cancelled BUN Cancelled Creatinine Cancelled Estim Creat Clear Calc Cancelled Estimated GFR Cancelled Random Glucose Cancelled Calcium Cancelled Magnesium Cancelled Troponin I High Sens 790.1 H* B-Natriuretic Peptide Quality Stroke Does the patient have a stroke diagnosis?: No VTE Prior VTE?: No VTE Risk Level:: Medical - moderate - high VTE Device Contraindication: N/A - Device Ordered VTE Drug Contraindication: N/A - Med Ordered Assessment and Plan (1) Cardiomyopathy: Status: Acute Assessment and Plan: 80-year-old male with a past medical history of hypertension, hypothyroidism, hiatal hernia, 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 A. fib RVR HR in 120s overnight echo from 11/18 showing likely Takatsubo -will increase dose of metoprolol, add dig q2d per cardiology rec -start heparin drip for AC. 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 Likely prerenal, hypovolemia. trending down, creatinine around 1.4 -trend BMP -hold PATI-i -nephrology following Metabolic acidosis -bicarb po -nephrology following Hypernatremia. -resolved HTN on multiple meds at home -- all were on hold for SBO and was treated with IV meds; now started on metoprolol for his A. Fib; add back others as bp allows (benazepril, clonidine, nifedipine, atenolol at home) hypothyroidism -continue synthroid DVT prophylaxis: heparin Code status: Full code Attending Dr. [place]
[2020-11-22 15:58] LABS: PTT Heparin Drip 50.2 SEC (53-77.9)
[2020-11-22] MEDS: Heparin Sodium,Porcine 5,000 UNIT/ML VIAL 2600 UNIT IVPUSH ×2 (17:05→23:45)
[2020-11-23] VITALS (10 sets, daily range): BP systolic 135–164; BP diastolic 72–92; PULSE 56–108; RESP 16–18; TEMP 36.3–36.6; O2SAT 92–97
[2020-11-23] MEDS: Piperacillin Sodium/Tazobactam 2.25 GM in 0.9 % Sodium Chloride 50 ML IV ×2 (05:56→11:41)
[2020-11-23 06:09] LABS: Hematocrit 35.1 % (42-52); Hemoglobin 11.3 g/dl (14.0-18.0); Mean Corpuscular HGB Conc 32.2 g/dl (31.0-36.0); Mean Corpuscular Hemoglobin 31.3 pg (27.0-33.0); Mean Corpuscular Volume 97.2 fL (80-98); Mean Platelet Volume 10.9 fL (9.4-12.4); NRBC Pct Auto 0.2 /100WBC (0.0-0.2); Platelet Count 318 X10*3/uL (160-400); Red Blood Count 3.61 X10*6/uL (4.60-5.80); Red Cell Distribution Width 13.7 % (11.0-16.0); White Blood Count 14.8 X10*3/uL (4.8-10.8)
[2020-11-23 06:23] LABS: INTERNATIONAL NORM RATIO 1.5 (0.9-1.1); Prothrombin Time 16.6 SEC (9.9-13.0)
[2020-11-23 06:26] LABS: PTT Heparin Drip 92.3 SEC (53-77.9)
[2020-11-23 06:31] LABS: B Type Natriuretic Peptide 3526 pg/mL (<100)
[2020-11-23 06:45] LABS: Anion Gap 20 (12-20); Blood Urea Nitrogen 45 mg/dL (9-16); Calcium 7.6 mg/dL (8.4-10.2); Carbon Dioxide 13 mmol/L (22-29); Chloride 113 mmol/L (96-108); Creatinine Clr Calc Pharmacy 27.1; Estimated Glomerular Filt Rate 33; Glucose Random 119 mg/dL (60-115); Potassium 4.3 mmol/L (3.3-5.1); Sodium 142 mmol/L (135-145)
[2020-11-23] MEDS: Heparin Sodium,Porcine/1/2NS 25,000 UNIT/250 ML IV.SOLN 8.95 UNIT IVCONT (09:02)
[2020-11-23] MEDS: Aspirin Enteric Coated 81 MG TABLET.DR PO (09:04)
[2020-11-23] MEDS: Metoprolol Tartrate 50 MG TABLET PO ×3 (09:04→20:36)
[2020-11-23] MEDS: Sodium Bicarbonate 650 MG TABLET PO ×2 (09:04→20:36)
[2020-11-23] MEDS: Levothyroxine Sodium 75 MCG TABLET PO (09:04)
[2020-11-23] MEDS: Omeprazole 20 MG CAPSULE.DR PO (09:04)
--- NOTE | 2020-11-23 09:15 | P.PNGS_ITS ---
Subjective Subjective Date of Service: 11/23/20 Interval history: Overall patient feels improved, tolerating some of his diet. He denies nausea or vomiting. He is passing a significant amount of flatus. Denies abdominal pain. Physical Exam Vital Signs: Vital Signs: Last Vital Signs Temp 97.4 F 11/23/20 07:30 Pulse 108 H 11/23/20 09:04 Resp 18 11/23/20 07:30 BP 164/86 H 11/23/20 09:04 Pulse Ox 94 11/23/20 09:10 Body Mass Index 22.0 Const: General: ill appearing Nutritional Appearance: thin Orientation/consciousness: patient oriented x3 Resp: Effort & Inspection: pursed lip breathing Auscultation: no rales and no rhonchi GI: Palpation (GI): Soft to palpation, nontender, no guarding, not rigid and hepatosplenomegaly present Percussion: Yes tympanic to percussion Auscultation: normal bowel sounds Rectal Exam - Male: Yes deferred Skin: General skin exam: no rashes or lesions noted Neuro: General: patient oriented x3 Progress Note: A&P Assessment and plan (1) Small bowel obstruction: Status: Acute Assessment and Plan: Overall patient is improved with decreased abdominal pain, passing flatus and tolerating some of his diet. Pathology is pending following colonoscopy. Continue current diet and await pathology results. Fall Risk Details Current Medications: Current Medications Generic Name Dose Route Start Last Admin Trade Name Freq PRN Reason Stop Dose Admin Acetaminophen 650 mg 11/16/20 05:21 Acetaminophen Supp 650 Mg Supp.Rect [place] Q6H PRN Pain, Mild (Pain Scale 1-3) Aspirin 81 mg 11/23/20 09:00 11/23/20 09:04 Aspirin Enteric Coated 81 Mg Tablet. PO 81 mg DAILY ROCKY Administration Benzocaine 1 lozenge 11/18/20 10:35 11/19/20 14:30 Throat Lozenge, Medicated Lozenge MUCOUS MEM 1 lozenge Q2H PRN Administration Sore Throat Digoxin 0.125 mg 11/23/20 09:00 Digoxin 0.125 Mg Tablet PO Q2D ROCKY Furosemide 40 mg 11/22/20 06:25 11/22/20 18:10 Furosemide 40 Mg/4 Ml Vial IVPUSH 40 mg BID@0900,1800 [facility] Administration Protocol Heparin Sodium (Porcine) 2,600 unit 11/22/20 07:50 11/22/20 23:45 Heparin Sodium,Por[place] 5,000 Unit/Ml Vial 40 unit/kg (2600 unit) 2,600 unit IVPUSH Administration PROTOCOL BOLUS PRN 40 unit/kg - Heparin Protocol Protocol Heparin Sodium (Porcine) 5,100 unit 11/22/20 07:50 Heparin Sodium,Por[place] 5,000 Unit/Ml Vial 80 unit/kg (5100 unit) IVPUSH PROTOCOL BOLUS PRN 80 unit/kg - Heparin Protocol Protocol Piperacillin Sod/Tazobactam 50 mls @ 100 mls/hr 11/16/20 12:00 11/23/20 06:35 Sod 2.25 gm/ Sodium Chloride IV Infused Q6H ROCKY Infusion Heparin Sodium/Sodium Chloride 25,000 unit in 250 mls @ 0 mls/hr 11/22/20 08:00 11/23/20 09:02 IVCONT 14 units/kg/hr .Q0M ROCKY 8.95 mls/hr Administration Protocol Per Protocol Levothyroxine Sodium 75 mcg 11/22/20 09:00 11/23/20 09:04 Levothyroxine Sodium 75 Mcg Tablet PO 75 mcg DAILY ROCKY Administration Lorazepam 0.25 mg 11/22/20 17:15 11/22/20 21:01 Lorazepam 0.5 Mg Tablet PO 0.25 mg Q8H PRN Administration anxiety/restlessness Melatonin 6 mg 11/18/20 20:58 11/21/20 20:07 Melatonin 3 Mg Tablet PO 6 mg BEDTIME PRN Administration Insomnia Metoprolol Tartrate 50 mg 11/22/20 09:00 11/23/20 09:04 Metoprolol Tartrate 50 Mg Tablet PO 50 mg TID ROCKY Administration Protocol Multi-Ingred Medicated Throat [place] 1 spray 11/17/20 11:07 11/17/20 15:29 Throat [place], Medicated 20 Ml Bottle MUCOUS MEM 1 spray Q2H PRN Administration Sore Throat Omeprazole 20 mg 11/22/20 09:00 11/23/20 09:04 Omeprazole 20 Mg Capsule.Dr PO 20 mg DAILY ROCKY Administration Ondansetron HCl 4 mg 11/18/20 12:13 11/19/20 18:06 Ondansetron Hcl 4 Mg/2 Ml Vial IVPUSH 4 mg Q8H PRN Administration Nausea and Vomiting Sodium Bicarbonate 650 mg 11/22/20 09:00 11/23/20 09:04 Sodium Bicarbonate 650 Mg Tablet PO 650 mg BID ROCKY Administration Sodium Biphosphate/Sodium Phosphate 133 ml 11/20/20 09:57 Sodium Phosphate,[place]-Dibasic 133 Ml Enema [place] ONCE PRN Poor Colonoscopy Prep Results Sodium Biphosphate/Sodium Phosphate 133 ml 11/20/20 11:00 11/20/20 10:27 Sodium Phosphate,[place]-Dibasic 133 Ml Enema [place] 133 ml ONCE PRN Administration Poor Colonoscopy Prep Results Sodium Chloride 3 ml 11/16/20 08:00 11/23/20 09:05 0.9 % Sodium Chloride Flush 3 Ml Syringe IVFLUSH Not Given QSHIFT ROCKY Time Spent With Patient Time: Total time spent is greater than 50% in coordination of care (as documented) at patient's floor/unit and/or counseling patient: Time with patient: 15 - 24 minutes Procedures Date of Service Date of Service: 11/23/20 Quality Stroke Does the patient have a stroke diagnosis?: No VTE Prior VTE?: No VTE Risk Level:: Medical - moderate - high VTE Device Contraindication: N/A - Device Ordered VTE Drug Contraindication: N/A - Med Ordered
--- NOTE | 2020-11-23 09:39 | PM.PNCARD ---
Subjective Subjective Date of Service: 11/23/20 Interval history: He is saying he feels bloated after eating. Echocardiogram report discussed with the patient and his son Physical Exam Vital Signs: Last Vital Signs Temp 97.4 F 11/23/20 07:30 Pulse 108 H 11/23/20 09:04 Resp 18 11/23/20 07:30 BP 164/86 H 11/23/20 09:04 Pulse Ox 94 11/23/20 09:10 Body Mass Index 22.0 GENERAL APPEARANCE: in no acute distress, pleasant. NECK: no carotid bruit, no jugular venous distention. SKIN: no suspicious lesions, warm and dry. HEART: no murmurs, irregular rate and rhythm. LUNGS: clear to auscultation bilaterally. Diminished at right base. ABDOMEN: soft, nontender. Bowel sounds positive EXTREMITIES: Mild edema. PERIPHERAL PULSES: equal. NEUROLOGIC: No gross deficits, AAO X 3 Results Labs and Meds Result diagrams: 11/23/20 06:00 11/23/20 06:00 Lab results: Laboratory Results - last 24 hr 11/22/20 11/22/20 11/23/20 15:40 23:12 06:00 WBC 14.8 H RBC 3.61 L Hgb 11.3 L Hct 35.1 L MCV 97.2 MCH 31.3 MCHC 32.2 RDW 13.7 Plt Count 318 MPV 10.9 Absolute Nucleated RBC 0.030 H Nucleated RBC % (auto) 0.2 PT INR PTT (Heparin Protocol) 50.2 L D 52.0 L Sodium Potassium Chloride Carbon Dioxide Anion Gap BUN Creatinine Estim Creat Clear Calc Estimated GFR Random Glucose Calcium B-Natriuretic Peptide 11/23/20 11/23/20 11/23/20 06:00 06:00 06:00 WBC RBC Hgb Hct MCV MCH MCHC RDW Plt Count MPV Absolute Nucleated RBC Nucleated RBC % (auto) PT 16.6 H INR 1.5 H PTT (Heparin Protocol) 92.3 H D Sodium 142 Potassium 4.3 Chloride 113 H Carbon Dioxide 13 L Anion Gap 20 BUN 45 H Creatinine 1.96 H Estim Creat Clear Calc 27.1 Estimated GFR 33 Random Glucose 119 H Calcium 7.6 L D B-Natriuretic Peptide 3526 H Progress Note: A&P Assessment and plan (1) New onset atrial fibrillation: Status: Acute (2) Cardiomyopathy: Status: Acute (3) Apical mural thrombus: Status: Acute Assessment and Plan: 80-year-old gentleman with small bowel obstruction which was treated conservatively. He has been found to have colonic mass which was biopsied and result is pending. 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 He had AFib with RVR in this setting. Continue digoxin and metoprolol. His echocardiogram was repeated to see if the changes of apical dyskinesis are persistent. Echocardiogram showed that his EF has dropped significantly and wall motion abnormality is pointing to her takotsubo cardiomyopathy. He also had a large apical mural thrombus which was noticed. He was already on anticoagulation for atrial fibrillation. Once his biopsy result is back and we have a better understanding about pathology then we can discuss about surgical risk in case he requires surgery. In the meantime I think he should stay on anticoagulation. He is not clinically in heart failure. Thank you for allowing me to participate in the care of your patient. Please feel free to contact me if you have any questions. Fall Risk Details Current Medications: Current Medications Generic Name Dose Route Start Last Admin Trade Name Freq PRN Reason Stop Dose Admin Acetaminophen 650 mg 11/16/20 05:21 Acetaminophen Supp 650 Mg Supp.Rect [place] Q6H PRN Pain, Mild (Pain Scale 1-3) Aspirin 81 mg 11/23/20 09:00 11/23/20 09:04 Aspirin Enteric Coated 81 Mg Tablet. PO 81 mg DAILY ROCKY Administration Benzocaine 1 lozenge 11/18/20 10:35 11/19/20 14:30 Throat Lozenge, Medicated Lozenge MUCOUS MEM 1 lozenge Q2H PRN Administration Sore Throat Digoxin 0.125 mg 11/24/20 09:00 Digoxin 0.125 Mg Tablet PO Q2D@0900 ROCKY Furosemide 40 mg 11/22/20 06:25 11/22/20 18:10 Furosemide 40 Mg/4 Ml Vial IVPUSH 40 mg BID@0900,1800 ROCKY Administration Protocol Heparin Sodium (Porcine) 2,600 unit 11/22/20 07:50 11/22/20 23:45 Heparin Sodium,[place] 5,000 Unit/Ml Vial 40 unit/kg (2600 unit) 2,600 unit IVPUSH Administration PROTOCOL BOLUS PRN 40 unit/kg - Heparin Protocol Protocol Heparin Sodium (Porcine) 5,100 unit 11/22/20 07:50 Heparin Sodium,[place] 5,000 Unit/Ml Vial 80 unit/kg (5100 unit) IVPUSH PROTOCOL BOLUS PRN 80 unit/kg - Heparin Protocol Protocol Piperacillin Sod/Tazobactam 50 mls @ 100 mls/hr 11/16/20 12:00 11/23/20 06:35 Sod 2.25 gm/ Sodium Chloride IV Infused Q6H ROCKY Infusion Heparin Sodium/Sodium Chloride 25,000 unit in 250 mls @ 0 mls/hr 11/22/20 08:00 11/23/20 09:02 IVCONT 14 units/kg/hr .Q0M ROCKY 8.95 mls/hr Administration Protocol Per Protocol Levothyroxine Sodium 75 mcg 11/22/20 09:00 11/23/20 09:04 Levothyroxine Sodium 75 Mcg Tablet PO 75 mcg DAILY ROCKY Administration Lorazepam 0.25 mg 11/22/20 17:15 11/22/20 21:01 Lorazepam 0.5 Mg Tablet PO 0.25 mg Q8H PRN Administration anxiety/restlessness Melatonin 6 mg 11/18/20 20:58 11/21/20 20:07 Melatonin 3 Mg Tablet PO 6 mg BEDTIME PRN Administration Insomnia Metoprolol Tartrate 50 mg 11/22/20 09:00 11/23/20 09:04 Metoprolol Tartrate 50 Mg Tablet PO 50 mg TID ROCKY Administration Protocol Multi-Ingred Medicated Throat [place] 1 spray 11/17/20 11:07 11/17/20 15:29 Throat [place], Medicated 20 Ml Bottle MUCOUS MEM 1 spray Q2H PRN Administration Sore Throat Omeprazole 20 mg 11/22/20 09:00 11/23/20 09:04 Omeprazole 20 Mg Capsule.Dr PO 20 mg DAILY ROCKY Administration Ondansetron HCl 4 mg 11/18/20 12:13 11/19/20 18:06 Ondansetron Hcl 4 Mg/2 Ml Vial IVPUSH 4 mg Q8H PRN Administration Nausea and Vomiting Sodium Bicarbonate 650 mg 11/22/20 09:00 11/23/20 09:04 Sodium Bicarbonate 650 Mg Tablet PO 650 mg BID ROCKY Administration Sodium Biphosphate/Sodium Phosphate 133 ml 11/20/20 09:57 Sodium Phosphate,[place]-Dibasic 133 Ml Enema [place] ONCE PRN Poor Colonoscopy Prep Results Sodium Biphosphate/Sodium Phosphate 133 ml 11/20/20 11:00 11/20/20 10:27 Sodium Phosphate,[place]-Dibasic 133 Ml Enema [place] 133 ml ONCE PRN Administration Poor Colonoscopy Prep Results Sodium Chloride 3 ml 11/16/20 08:00 11/23/20 09:05 0.9 % Sodium Chloride Flush 3 Ml Syringe IVFLUSH Not Given QSHIFT [place] Time Spent With Patient Time: Total time spent is greater than 50% in coordination of care (as documented) at patient's floor/unit and/or counseling patient: Time with patient: 25 - 35 minutes Progress Note: Quality Stroke Does the patient have a stroke diagnosis?: No Procedures Date of Service Date of Service: 11/23/20
[2020-11-23] MEDS: Isosorbide Mononitrate 30 MG TAB.ER.24H PO (10:13)
--- NOTE | 2020-11-23 10:15 | P.PNIM_ITS ---
Subjective Subjective Date of Service: 11/23/20 <VERN Bryant - Last Filed: 11/23/20 10:23> 11/23/20 <Jackson Benitez MD - Last Filed: 11/23/20 12:13> Interval History: seen and examined this morning had a better night, was able to sleep heart rate under better control <VERN Bryant - Last Filed: 11/23/20 10:23> Review of Systems Review of Systems: Yes all other systems are reviewed and are negative <VERN Bryant - Last Filed: 11/23/20 10:23> Constitutional Constitutional: Denies chills and Denies fever(s) <VERN Bryant - Last Filed: 11/23/20 10:23> Cardiovascular Cardiovascular: Denies chest pain <VERN Bryant - Last Filed: 11/23/20 10:23> Respiratory Respiratory: Denies cough <VERN Bryant - Last Filed: 11/23/20 10:23> Gastrointestinal Gastrointestinal: Denies abdominal pain <VERN Bryant - Last Filed: 11/23/20 10:23> Physical Exam Vital Signs: Vital Signs: Last Vital Signs Temp 97.4 F 11/23/20 07:30 Pulse 108 H 11/23/20 09:04 Resp 18 11/23/20 07:30 BP 164/86 H 11/23/20 09:04 Pulse Ox 94 11/23/20 09:10 Body Mass Index 22.0 <VERN Bryant - Last Filed: 11/23/20 10:23> Const: General: comfortable, no acute distress, alert and awake <VERN Bryant - Last Filed: 11/23/20 10:23> Nutritional Appearance: thin <VERN Bryant Last Filed: 11/23/20 10:23> Orientation/consciousness: patient oriented x3 <VERN Bryant Last Filed: 11/23/20 10:23> HENMT: Head: Yes normocephalic and Yes atraumatic <VERN Bryant Last Filed: 11/23/20 10:23> Eyes: Sclerae: sclerae normal <VERN Bryant - Last Filed: 11/23/20 10:23> Chest: Chest palpation & inspection: normal inspection of the chest <VERN Bryant - Last Filed: 11/23/20 10:23> Resp: Effort & Inspection: normal respiratory effort and no respiratory distress <VERN Bryant - Last Filed: 11/23/20 10:23> Cardio: Jugular venous distension: no JVD <VERN Bryant - Last Filed: 11/23/20 10:23> Rate: tachycardic <VERN Bryant - Last Filed: 11/23/20 10:23> Rhythm: abnormal rhythm irregularly irregular <VERN Bryant - Last Filed: 11/23/20 10:23> GI: Palpation (GI): Soft to palpation and nontender <VERN Bryant - Last Filed: 11/23/20 10:23> Neuro: General: patient oriented x3 <VERN Bryant - Last Filed: 11/23/20 10:23> Cranial nerves: Yes CN's II-XII intact bilaterally and Yes Bilaterally intact EOM present <VERN Bryant - Last Filed: 11/23/20 10:23> Extrem: Other: b/l leg edema <VERN Bryant - Last Filed: 11/23/20 10:23> Objective Data Current Medications Generic Name Dose Route Start Last Admin Trade Name Joseq PRN Reason Stop Dose Admin Acetaminophen 650 mg 11/16/20 05:21 Acetaminophen Supp 650 Mg Supp.Rect MD Q6H PRN Pain, Mild (Pain Scale 1-3) Benzocaine 1 lozenge 11/18/20 10:35 11/19/20 14:30 Throat Lozenge, Medicated Lozenge MUCOUS MEM 1 lozenge Q2H PRN Administration Sore Throat Digoxin 0.125 mg 11/24/20 09:00 Digoxin 0.125 Mg Tablet PO Q2D@0900 [facility] Heparin Sodium (Porcine) 2,600 unit 11/22/20 07:50 11/22/20 23:45 Heparin Sodium,Porcine 5,000 Unit/Ml Vial 40 unit/kg (2600 unit) 2,600 unit IVPUSH Administration PROTOCOL BOLUS PRN 40 unit/kg - Heparin Protocol Protocol Heparin Sodium (Porcine) 5,100 unit 11/22/20 07:50 Heparin Sodium,Porcine 5,000 Unit/Ml Vial 80 unit/kg (5100 unit) IVPUSH PROTOCOL BOLUS PRN 80 unit/kg - Heparin Protocol Protocol Piperacillin Sod/Tazobactam 50 mls @ 100 mls/hr 11/16/20 12:00 11/23/20 06:35 Sod 2.25 gm/ Sodium Chloride IV Infused Q6H ROCKY Infusion Heparin Sodium/Sodium Chloride 25,000 unit in 250 mls @ 0 mls/hr 11/22/20 08:00 11/23/20 09:02 IVCONT 14 units/kg/hr .Q0M ROCKY 8.95 mls/hr Administration Protocol Per Protocol Isosorbide Mononitrate 30 mg 11/23/20 09:50 Isosorbide Mononitrate 30 Mg Tab.Er.24h PO DAILY ROCKY Protocol Levothyroxine Sodium 75 mcg 11/22/20 09:00 11/23/20 09:04 Levothyroxine Sodium 75 Mcg Tablet PO 75 mcg DAILY ROCKY Administration Lorazepam 0.25 mg 11/22/20 17:15 11/22/20 21:01 Lorazepam 0.5 Mg Tablet PO 0.25 mg Q8H PRN Administration anxiety/restlessness Melatonin 6 mg 11/18/20 20:58 11/21/20 20:07 Melatonin 3 Mg Tablet PO 6 mg BEDTIME PRN Administration Insomnia Metoprolol Tartrate 50 mg 11/22/20 09:00 11/23/20 09:04 Metoprolol Tartrate 50 Mg Tablet PO 50 mg TID ROCKY Administration Protocol Multi-Ingred Medicated Throat [place] 1 spray 11/17/20 11:07 11/17/20 15:29 Throat [place], Medicated 20 Ml Bottle MUCOUS MEM 1 spray Q2H PRN Administration Sore Throat Omeprazole 20 mg 11/22/20 09:00 11/23/20 09:04 Omeprazole 20 Mg Capsule.Dr PO 20 mg DAILY ROCKY Administration Ondansetron HCl 4 mg 11/18/20 12:13 11/19/20 18:06 Ondansetron Hcl 4 Mg/2 Ml Vial IVPUSH 4 mg Q8H PRN Administration Nausea and Vomiting Sodium Bicarbonate 650 mg 11/22/20 09:00 11/23/20 09:04 Sodium Bicarbonate 650 Mg Tablet PO 650 mg BID ROCKY Administration Sodium Biphosphate/Sodium Phosphate 133 ml 11/20/20 09:57 Sodium Phosphate,[place]-Dibasic 133 Ml Enema MD ONCE PRN Poor Colonoscopy Prep Results Sodium Biphosphate/Sodium Phosphate 133 ml 11/20/20 11:00 11/20/20 10:27 Sodium Phosphate,[place]-Dibasic 133 Ml Enema MD 133 ml ONCE PRN Administration Poor Colonoscopy Prep Results Sodium Chloride 3 ml 11/16/20 08:00 11/23/20 09:05 0.9 % Sodium Chloride Flush 3 Ml Syringe IVFLUSH Not Given QSHIFT ROCKY <VERN Bryant - Last Filed: 11/23/20 10:23> Labs CBC & Chem 7: : 11/23/20 06:00 11/23/20 06:00 <VERN Bryant - Last Filed: 11/23/20 10:23> Labs: Laboratory Results - last 24 hr 11/22/20 11/22/20 11/23/20 15:40 23:12 06:00 WBC 14.8 H RBC 3.61 L Hgb 11.3 L Hct 35.1 L MCV 97.2 MCH 31.3 MCHC 32.2 RDW 13.7 Plt Count 318 MPV 10.9 Absolute Nucleated RBC 0.030 H Nucleated RBC % (auto) 0.2 PT INR PTT (Heparin Protocol) 50.2 L D 52.0 L Sodium Potassium Chloride Carbon Dioxide Anion Gap BUN Creatinine Estim Creat Clear Calc Estimated GFR Random Glucose Calcium B-Natriuretic Peptide 11/23/20 11/23/20 11/23/20 06:00 06:00 06:00 WBC RBC Hgb Hct MCV MCH MCHC RDW Plt Count MPV Absolute Nucleated RBC Nucleated RBC % (auto) PT 16.6 H INR 1.5 H PTT (Heparin Protocol) 92.3 H D Sodium 142 Potassium 4.3 Chloride 113 H Carbon Dioxide 13 L Anion Gap 20 BUN 45 H Creatinine 1.96 H Estim Creat Clear Calc 27.1 Estimated GFR 33 Random Glucose 119 H Calcium 7.6 L D B-Natriuretic Peptide 3526 H <VERN Bryant - Last Filed: 11/23/20 10:23> Quality Stroke Does the patient have a stroke diagnosis?: No <VERN Bryant - Last Filed: 11/23/20 10:23> VTE Prior VTE?: No <VERN Bryant - Last Filed: 11/23/20 10:23> VTE Risk Level:: Medical - moderate - high <VERN Bryant - Last Filed: 11/23/20 10:23> VTE Device Contraindication: N/A - Device Ordered <VERN Bryant - Last Filed: 11/23/20 10:23> VTE Drug Contraindication: N/A - Med Ordered <VERN Bryant - Last Filed: 11/23/20 10:23> Assessment and Plan (1) Cardiomyopathy: Status: Acute <VERN Bryant - Last Filed: 11/23/20 10:23> Assessment and Plan: 80-year-old male with a past medical history of hypertension, hypothyroidism, hiatal hernia, 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 A. 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 Creatinine back up to 1.96, likely r/t diuresis -trend BMP -hold PATI-i -nephrology following Metabolic acidosis -bicarb po -nephrology following Hypernatremia. -resolved HTN on multiple meds at home -- all were on hold for SBO and was treated with IV meds; now started on metoprolol for his A. Fib; add back others as bp allows (benazepril, clonidine, nifedipine, atenolol at home) hypothyroidism -continue synthroid DVT prophylaxis: heparin Code status: Full code - poor prognosis, will need goals of care discussion Attending Dr. Benitez <VERN Bryant - Last Filed: 11/23/20 10:23>
--- NOTE | 2020-11-23 13:02 | W.MHC.ACPN ---
Advanced Care Planning Note Advanced Care Planning Note Discussed with: patient and family member(s) Time spent (in minutes): 20 Narrative: Given multiple acute medical conditions including those listed below, patient's age and overall poor prognosis, goals of care were discussed with the patient and his daughter Agustina and son in law at the bedside. Both the patient and the family are well educated on and have good understanding regarding Josh's current medical conditions which were discussed in detail. They are aware of the options for code status and DNR was discussed however the patient currently would like to remain full code. He would like both cpr and intubation if necessary. Problems Discussed (1) Cardiomyopathy: (2) Apical mural thrombus: (3) New onset atrial fibrillation: (4) Acute renal failure: (5) Small bowel obstruction:
[2020-11-23 13:22] LABS: PTT Heparin Drip 53.1 SEC (53-77.9)
[2020-11-23 16:36] LABS: Kappa, Serum 207 mg/dL (176-443); Kappa/Lambda Ratio, Serum 1.07 (1.29-2.55); Lambda, Serum 193 mg/dL (91-240)
[2020-11-23 20:00] LABS: PTT Heparin Drip 43.4 SEC (53-77.9)
[2020-11-23] MEDS: Heparin Sodium,Porcine 5,000 UNIT/ML VIAL 2600 UNIT IVPUSH (20:35)
[2020-11-23] MEDS: LORazepam 0.5 MG TABLET 0.25 MG PO (20:35)
[2020-11-24] VITALS (11 sets, daily range): BP systolic 128–168; BP diastolic 62–96; PULSE 64–115; RESP 15–18; TEMP 36.2–37.1; O2SAT 94–96
--- NOTE | 2020-11-24 | ECG_ITS ---
Test Reason : PAF Blood Pressure : / mmHG Vent. Rate : 080 BPM Atrial Rate : 080 BPM P-R Int : 162 ms QRS Dur : 096 ms QT Int : 452 ms P-R-T Axes : 067 -58 194 degrees QTc Int : 521 ms Sinus rhythm with Premature atrial complexes Left anterior fascicular block Anterior infarct (cited on or before 16-NOV-2020) ST & T changes consider anterolateral ischemia Prolonged QT Abnormal ECG When compared with ECG of 22-NOV-2020 07:22, Sinus rhythm has replaced Atrial fibrillation Vent. rate has decreased BY 44 BPM Serial changes of evolving Anterior infarct Present Referred By: Rolando Lou Electronically Signed By:Rolando Lou
[2020-11-24 02:32] LABS: PTT Heparin Drip 72.5 SEC (53-77.9)
[2020-11-24 05:22] LABS: Hematocrit 30.1 % (42-52); Hemoglobin 9.8 g/dl (14.0-18.0); Mean Corpuscular HGB Conc 32.6 g/dl (31.0-36.0); Mean Corpuscular Hemoglobin 30.8 pg (27.0-33.0); Mean Corpuscular Volume 94.7 fL (80-98); Mean Platelet Volume 11.3 fL (9.4-12.4); Platelet Count 327 X10*3/uL (160-400); Red Blood Count 3.18 X10*6/uL (4.60-5.80); Red Cell Distribution Width 13.7 % (11.0-16.0); White Blood Count 11.3 X10*3/uL (4.8-10.8)
[2020-11-24 05:44] LABS: Anion Gap 17 (12-20); Blood Urea Nitrogen 40 mg/dL (9-16); Calcium 7.8 mg/dL (8.4-10.2); Carbon Dioxide 19 mmol/L (22-29); Chloride 112 mmol/L (96-108); Creatinine Clr Calc Pharmacy 32.8; Estimated Glomerular Filt Rate 41; Glucose Random 92 mg/dL (60-115); Potassium 3.5 mmol/L (3.3-5.1); Sodium 144 mmol/L (135-145)
[2020-11-24] MEDS: Isosorbide Mononitrate 30 MG TAB.ER.24H PO ×2 (08:20→13:14)
[2020-11-24] MEDS: Digoxin 0.125 MG TABLET PO (08:20)
[2020-11-24] MEDS: Levothyroxine Sodium 75 MCG TABLET PO (08:21)
[2020-11-24] MEDS: Metoprolol Tartrate 50 MG TABLET PO ×3 (08:21→21:05)
[2020-11-24] MEDS: Omeprazole 20 MG CAPSULE.DR PO (08:21)
[2020-11-24] MEDS: Heparin Sodium,Porcine/1/2NS 25,000 UNIT/250 ML IV.SOLN 10.22 UNIT IVCONT (08:24)
[2020-11-24 08:45] LABS: PTT Heparin Drip 49.8 SEC (53-77.9)
[2020-11-24] MEDS: Heparin Sodium,Porcine 5,000 UNIT/ML VIAL 2600 UNIT IVPUSH ×2 (09:17→22:26)
[2020-11-24] MEDS: Sodium Bicarbonate 650 MG TABLET PO (09:21)
--- NOTE | 2020-11-24 09:39 | PM.PNNEP ---
Subjective Subjective Date of Service: 11/24/20 Interval history: seen and examined this morning had a better night, was able to sleep heart rate under better control Physical Exam Vital Signs: Vital Signs: Last Vital Signs Temp 97.7 F 11/24/20 07:36 Pulse 115 H 11/24/20 08:21 Resp 18 11/24/20 07:36 BP 168/79 H 11/24/20 08:21 Pulse Ox 94 11/24/20 07:36 Body Mass Index 22.0 Const: Other: Appears anxious General: cooperative, healthy appearing, comfortable, no acute distress, alert, awake and ill appearing Nutritional Appearance: average body habitus and thin Orientation/consciousness: patient oriented x3 Limitations: no limitations and No language barrier HENMT: Other: Unremarkable Head: Yes normal to inspection, Yes normocephalic and Yes atraumatic Ears: hearing grossly normal bilaterally Face and sinus: Yes other (NG tube in place) Mouth: Normal oral and palatal mucosa present Eyes: Sclerae: sclerae normal Pupils: Equal, round and reactive pupils present Neck: Neck: Yes normal visual inspection, Yes trachea midline and Yes supple Chest: Chest palpation & inspection: normal inspection of the chest Resp: Effort & Inspection: normal respiratory effort, pursed lip breathing and no respiratory distress Auscultation: clear to auscultation bilaterally, no crackles, no rales, no rhonchi, no wheezes and diminished lung sounds on the right in the lower lung aparicio Cardio: Jugular venous distension: no JVD Palpation: normal PMI Rate: regular rate and tachycardic Rhythm: regular rhythm and abnormal rhythm irregularly irregular Heart sounds: S1 normal heart sound present, S2 normal heart sound present, no gallops, no murmurs and no rubs GI: Other: Protuberant but soft, no guarding no rebound no tenderness Inspection: No distended Palpation (GI): Soft to palpation, not firm, nontender, no guarding, not rigid and hepatosplenomegaly present Percussion: Yes tympanic to percussion Auscultation: normal bowel sounds and other (decreased bowel sounds) Rectal Exam - Male: Yes deferred Back/Spine/Pelvis: Other: unremarkable Skin: Other: Normal color, warm and dry General skin exam: no rashes or lesions noted Neuro: General: patient oriented x3, gait normal and moves all extremities Cranial nerves: Yes CN's II-XII intact bilaterally, Yes Equal, round and reactive pupils present, Yes Bilaterally intact EOM present, Yes Normal hearing present and Yes Other cranial nerve findings present Speech: No Abnormal speech present Extrem: Other: b/l leg edema General: Yes normal to inspection and Yes no clubbing, cyanosis or edema Psych: Appearance: grossly normal Mental Status: mental status grossly normal and other Objective Data Labs CBC & Chem 7: 11/24/20 04:06 11/24/20 04:06 Labs: Laboratory Results - last 24 hr 11/17/20 11/23/20 11/23/20 08:05 13:05 19:43 WBC RBC Hgb Hct MCV MCH MCHC RDW Plt Count MPV Absolute Nucleated RBC Nucleated RBC % (auto) PTT (Heparin Protocol) 53.1 D 43.4 L Sodium Potassium Chloride Carbon Dioxide Anion Gap BUN Creatinine Estim Creat Clear Calc Estimated GFR Random Glucose Calcium [place]/Lambda Ratio 1.07 L [place] Light Chain Anal 207 Lambda Light Chain Anal 193 11/24/20 11/24/20 11/24/20 02:16 04:06 04:06 WBC 11.3 H RBC 3.18 L Hgb 9.8 L Hct 30.1 L MCV 94.7 MCH 30.8 MCHC 32.6 RDW 13.7 Plt Count 327 MPV 11.3 Absolute Nucleated RBC 0.000 Nucleated RBC % (auto) 0.0 PTT (Heparin Protocol) 72.5 D Sodium 144 Potassium 3.5 Chloride 112 H Carbon Dioxide 19 L Anion Gap 17 BUN 40 H Creatinine 1.62 H Estim Creat Clear Calc 32.8 Estimated GFR 41 Random Glucose 92 Calcium 7.8 L [place]/Lambda Ratio [place] Light Chain Anal Lambda Light Chain Anal 11/24/20 08:22 WBC RBC Hgb Hct MCV MCH MCHC RDW Plt Count MPV Absolute Nucleated RBC Nucleated RBC % (auto) PTT (Heparin Protocol) 49.8 L D Sodium Potassium Chloride Carbon Dioxide Anion Gap BUN Creatinine Estim Creat Clear Calc Estimated GFR Random Glucose Calcium [place]/Lambda Ratio [place] Light Chain Anal Lambda Light Chain Anal Microbiology Microbiology Results: Microbiology 11/20/20 Unknown Colon Direct Acid Fast Bacilli Smear - Final 11/16/20 03:12 Blood - Venous Blood Culture - Final No growth after 5 days. 11/16/20 03:10 Blood - Venous Blood Culture - Final No growth after 5 days. 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 A. 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 Creatinine improving back towards baseline Metabolic acidosis -bicarb po -nephrology following Hypernatremia. -resolved HTN on multiple meds at home -- all were on hold for SBO and was treated with IV meds; now started on metoprolol for his A. Fib; add back others as bp allows i would start with losartan 50 mg and add nifedipine if not at 130/80 goal hypothyroidism -continue synthroid DVT prophylaxis: heparin Code status: Full code - poor prognosis, will need goals of care discussion Attending Dr. Benitez (2) Apical mural thrombus: Status: Acute (3) New onset atrial fibrillation: Status: Acute (4) Acute renal failure: Status: Acute (5) Small bowel obstruction: Status: Acute (6) CKD (chronic kidney disease) stage 2, GFR 60-89 ml/min: Status: Acute Time Spent With Patient Time: Total time spent is greater than 50% in coordination of care (as documented) at patient's floor/unit and/or counseling patient: Procedures Date of Service Date of Service: 11/24/20 Progress Note: Quality Stroke Does the patient have a stroke diagnosis?: No
[2020-11-24 10:58] LABS: Alanine Aminotransferase 33 U/L (0-40); Albumin Level 2.4 g/dL (3.5-5.0); Alkaline Phosphatase 114 U/L (39-117); Aspartate Amino Transferase 26 U/L (5-37); Bilirubin Direct 0.2 mg/dL (0.0-0.5); Bilirubin Total 0.4 mg/dL (0.0-1.0); Total Protein 4.9 g/dL (6.5-8.0)
[2020-11-24] MEDS: Losartan Potassium 50 MG TABLET PO (11:25)
--- NOTE | 2020-11-24 12:22 | P.PNCA_ITS ---
Subjective Subjective Date of Service: 11/24/20 Interval history: Denies chest discomfort or shortness of breath. No GI complaints. Physical Exam Vital Signs: Last Vital Signs Temp 98.1 F 11/24/20 11:10 Pulse 96 11/24/20 11:25 Resp 18 11/24/20 11:10 BP 154/75 H 11/24/20 11:25 Pulse Ox 96 11/24/20 11:10 Body Mass Index 22.0 GENERAL APPEARANCE: in no acute distress, pleasant. NECK: no carotid bruit, no jugular venous distention. SKIN: no suspicious lesions, warm and dry. HEART: no murmurs, regular rate and rhythm. LUNGS: clear to auscultation bilaterally. Diminished at right base. ABDOMEN: soft, nontender. Bowel sounds positive EXTREMITIES: Mild edema. PERIPHERAL PULSES: equal. NEUROLOGIC: No gross deficits, AAO X 3 Results Labs and Meds Result diagrams: 11/24/20 04:06 11/24/20 04:06 Lab results: Laboratory Results - last 24 hr 11/17/20 11/23/20 11/23/20 08:05 13:05 19:43 WBC RBC Hgb Hct MCV MCH MCHC RDW Plt Count MPV Absolute Nucleated RBC Nucleated RBC % (auto) PTT (Heparin Protocol) 53.1 D 43.4 L Sodium Potassium Chloride Carbon Dioxide Anion Gap BUN Creatinine Estim Creat Clear Calc Estimated GFR Random Glucose Calcium Total Bilirubin Direct Bilirubin AST ALT Alkaline Phosphatase Total Protein Albumin [place]/Lambda Ratio 1.07 L [place] Light Chain Anal 207 Lambda Light Chain Anal 193 11/24/20 11/24/20 11/24/20 02:16 04:06 04:06 WBC 11.3 H RBC 3.18 L Hgb 9.8 L Hct 30.1 L MCV 94.7 MCH 30.8 MCHC 32.6 RDW 13.7 Plt Count 327 MPV 11.3 Absolute Nucleated RBC 0.000 Nucleated RBC % (auto) 0.0 PTT (Heparin Protocol) 72.5 D Sodium 144 Potassium 3.5 Chloride 112 H Carbon Dioxide 19 L Anion Gap 17 BUN 40 H Creatinine 1.62 H Estim Creat Clear Calc 32.8 Estimated GFR 41 Random Glucose 92 Calcium 7.8 L Total Bilirubin 0.4 Direct Bilirubin 0.2 AST 26 ALT 33 Alkaline Phosphatase 114 D Total Protein 4.9 L D Albumin 2.4 L D [place]/Lambda Ratio [place] Light Chain Anal Lambda Light Chain Anal 11/24/20 08:22 WBC RBC Hgb Hct MCV MCH MCHC RDW Plt Count MPV Absolute Nucleated RBC Nucleated RBC % (auto) PTT (Heparin Protocol) 49.8 L D Sodium Potassium Chloride Carbon Dioxide Anion Gap BUN Creatinine Estim Creat Clear Calc Estimated GFR Random Glucose Calcium Total Bilirubin Direct Bilirubin AST ALT Alkaline Phosphatase Total Protein Albumin [place]/Lambda Ratio [place] Light Chain Anal Lambda Light Chain Anal Progress Note: A&P Assessment and plan (1) Apical mural thrombus: Status: Acute (2) New onset atrial fibrillation: Status: Acute (3) CKD (chronic kidney disease) stage 2, GFR 60-89 ml/min: Status: Acute (4) Essential hypertension: Status: Acute (5) Cardiomyopathy: Status: Acute Assessment and Plan: 80-year-old gentleman with multiple complex issues. He came with small-bowel obstruction and has been found to have a colonic mass which is biopsied and biopsies pending. There is possibility of malignancy. He developed AFib with RVR, cardiomyopathy with EF 20% with pattern consistent with takotsubo and apical thrombus. He is back in sinus rhythm this morning. Blood pressure is elevated. I think we should stop the digoxin at this stage. Continue anticoagulation as before. If surgery is not an option then oral anticoagulants can be started. Increasing the Imdur to 60 mg once a day. Monitor blood pressure closely. Clinically he is euvolemic. Does not need any diuretics right now. He is getting sodium bicarbonate for his kidneys and this is sodium load. He should be monitored closely for any signs of heart failure. Thank you for allowing me to participate in the care of your patient. Please feel free to contact me if you have any questions. Fall Risk Details Current Medications: Current Medications Generic Name Dose Route Start Last Admin Trade Name Freq PRN Reason Stop Dose Admin Acetaminophen 650 mg 11/16/20 05:21 Acetaminophen Supp 650 Mg Supp.Rect MT Q6H PRN Pain, Mild (Pain Scale 1-3) Acetaminophen 650 mg 11/24/20 10:30 Acetaminophen 325 Mg Tablet PO Q6H PRN fever, pain 1-3 Benzocaine 1 lozenge 11/18/20 10:35 11/19/20 14:30 Throat Lozenge, Medicated Lozenge MUCOUS MEM 1 lozenge Q2H PRN Administration Sore Throat Heparin Sodium (Porcine) 2,600 unit 11/22/20 07:50 11/24/20 09:17 Heparin Sodium,[place] 5,000 Unit/Ml Vial 40 unit/kg (2600 unit) 2,600 unit IVPUSH Administration PROTOCOL BOLUS PRN 40 unit/kg - Heparin Protocol Protocol Heparin Sodium (Porcine) 5,100 unit 11/22/20 07:50 Heparin Sodium,[place] 5,000 Unit/Ml Vial 80 unit/kg (5100 unit) IVPUSH PROTOCOL BOLUS PRN 80 unit/kg - Heparin Protocol Protocol Heparin Sodium/Sodium Chloride 25,000 unit in 250 mls @ 0 mls/hr 11/22/20 08:00 11/24/20 09:18 IVCONT 18 units/kg/hr .Q0M ROCKY 11.5 mls/hr Titration Protocol Per Protocol Levothyroxine Sodium 75 mcg 11/22/20 09:00 11/24/20 08:21 Levothyroxine Sodium 75 Mcg Tablet PO 75 mcg DAILY ROCKY Administration Lorazepam 0.25 mg 11/22/20 17:15 11/23/20 20:35 Lorazepam 0.5 Mg Tablet PO 0.25 mg Q8H PRN Administration anxiety/restlessness Losartan Potassium 50 mg 11/24/20 10:45 11/24/20 11:25 Losartan Potassium 50 Mg Tablet PO 50 mg DAILY ROCKY Administration Protocol Melatonin 6 mg 11/18/20 20:58 11/21/20 20:07 Melatonin 3 Mg Tablet PO 6 mg BEDTIME PRN Administration Insomnia Metoprolol Tartrate 50 mg 11/22/20 09:00 11/24/20 08:21 Metoprolol Tartrate 50 Mg Tablet PO 50 mg TID ROCKY Administration Protocol Multi-Ingred Medicated Throat [place] 1 spray 11/17/20 11:07 11/17/20 15:29 Throat [place], Medicated 20 Ml Bottle MUCOUS MEM 1 spray Q2H PRN Administration Sore Throat Omeprazole 20 mg 11/22/20 09:00 11/24/20 08:21 Omeprazole 20 Mg Capsule.Dr PO 20 mg DAILY ROCKY Administration Ondansetron HCl 4 mg 11/18/20 12:13 11/19/20 18:06 Ondansetron Hcl 4 Mg/2 Ml Vial IVPUSH 4 mg Q8H PRN Administration Nausea and Vomiting Sodium Bicarbonate 650 mg 11/22/20 09:00 11/24/20 09:21 Sodium Bicarbonate 650 Mg Tablet PO 650 mg BID ROCKY Administration Sodium Biphosphate/Sodium Phosphate 133 ml 11/20/20 09:57 Sodium Phosphate,[place]-Dibasic 133 Ml Enema MT ONCE PRN Poor Colonoscopy Prep Results Sodium Biphosphate/Sodium Phosphate 133 ml 11/20/20 11:00 11/20/20 10:27 Sodium Phosphate,[place]-Dibasic 133 Ml Enema MT 133 ml ONCE PRN Administration Poor Colonoscopy Prep Results Sodium Chloride 3 ml 11/16/20 08:00 11/24/20 08:19 0.9 % Sodium Chloride Flush 3 Ml Syringe IVFLUSH Not Given QSHIFT [place]OCKY Time Spent With Patient Time: Total time spent is greater than 50% in coordination of care (as documented) at patient's floor/unit and/or counseling patient: Time with patient: 25 - 35 minutes Progress Note: Quality Stroke Does the patient have a stroke diagnosis?: No Procedures Date of Service Date of Service: 11/24/20
--- NOTE | 2020-11-24 12:43 | P.PNIM_ITS ---
Subjective Subjective Date of Service: 11/24/20 <VERN Bryant - Last Filed: 11/24/20 13:14> 11/24/20 <Dianna Arroyo MD - Last Filed: 11/24/20 13:31> Interval History: seen and evaluated this morning no overnight events, was able to sleep having BM, tolerating full liquid diet no abdominal pain, nausea <VERN Bryant - Last Filed: 11/24/20 13:14> Review of Systems Review of Systems: Yes all other systems are reviewed and are negative <VERN Bryant - Last Filed: 11/24/20 13:14> Constitutional Constitutional: Denies chills and Denies fever(s) <VERN Bryant - Last Filed: 11/24/20 13:14> Cardiovascular Cardiovascular: Denies chest pain <VERN Bryant - Last Filed: 11/24/20 13:14> Respiratory Respiratory: Denies cough <VERN Bryant - Last Filed: 11/24/20 13:14> Gastrointestinal Gastrointestinal: Denies abdominal pain <VERN Bryant - Last Filed: 11/24/20 13:14> Physical Exam Vital Signs: Vital Signs: Last Vital Signs Temp 98.1 F 11/24/20 11:10 Pulse 96 11/24/20 11:25 Resp 18 11/24/20 11:10 BP 154/75 H 11/24/20 11:25 Pulse Ox 96 11/24/20 11:10 Body Mass Index 22.0 <VERN Bryant - Last Filed: 11/24/20 13:14> Const: General: comfortable, no acute distress, alert and awake <VERN Bryant - Last Filed: 11/24/20 13:14> Nutritional Appearance: thin <VERN Bryant - Last Filed: 11/24/20 13:14> Orientation/consciousness: patient oriented x3 <VERN Bryant - Last Filed: 11/24/20 13:14> HENMT: Head: Yes normocephalic and Yes atraumatic <VERN Bryant - Last Filed: 11/24/20 13:14> Eyes: Sclerae: sclerae normal <VERN Bryant - Last Filed: 11/24/20 13:14> Chest: Chest palpation & inspection: normal inspection of the chest <VERN Bryant - Last Filed: 11/24/20 13:14> Resp: Effort & Inspection: normal respiratory effort and no respiratory distress <VERN Bryant - Last Filed: 11/24/20 13:14> Cardio: Jugular venous distension: no JVD <VERN Bryant - Last Filed: 11/24/20 13:14> Rate: regular rate <VERN Bryant - Last Filed: 11/24/20 13:14> Rhythm: abnormal rhythm irregularly irregular <VERN Bryant - Last Filed: 11/24/20 13:14> GI: Palpation (GI): Soft to palpation and nontender <VERN Bryant - Last Filed: 11/24/20 13:14> Neuro: General: patient oriented x3 <VERN Bryant - Last Filed: 11/24/20 13:14> Cranial nerves: Yes CN's II-XII intact bilaterally and Yes Bilaterally intact EOM present <VERN Bryant - Last Filed: 11/24/20 13:14> Extrem: Other: b/l leg edema <VERN Bryant - Last Filed: 11/24/20 13:14> Objective Data Current Medications Generic Name Dose Route Start Last Admin Trade Name Joseq PRN Reason Stop Dose Admin Acetaminophen 650 mg 11/16/20 05:21 Acetaminophen Supp 650 Mg Supp.Rect [place] Q6H PRN Pain, Mild (Pain Scale 1-3) Acetaminophen 650 mg 11/24/20 10:30 Acetaminophen 325 Mg Tablet PO Q6H PRN fever, pain 1-3 Benzocaine 1 lozenge 11/18/20 10:35 11/19/20 14:30 Throat Lozenge, Medicated Lozenge MUCOUS MEM 1 lozenge Q2H PRN Administration Sore Throat Heparin Sodium (Porcine) 2,600 unit 11/22/20 07:50 11/24/20 09:17 Heparin Sodium,Porcine 5,000 Unit/Ml Vial 40 unit/kg (2600 unit) 2,600 unit IVPUSH Administration PROTOCOL BOLUS PRN 40 unit/kg - Heparin Protocol Protocol Heparin Sodium (Porcine) 5,100 unit 11/22/20 07:50 Heparin Sodium,Porcine 5,000 Unit/Ml Vial 80 unit/kg (5100 unit) IVPUSH PROTOCOL BOLUS PRN 80 unit/kg - Heparin Protocol Protocol Heparin Sodium/Sodium Chloride 25,000 unit in 250 mls @ 0 mls/hr 11/22/20 08:00 11/24/20 09:18 IVCONT 18 units/kg/hr .Q0M ROCKY 11.5 mls/hr Titration Protocol Per Protocol Isosorbide Mononitrate 60 mg 11/25/20 09:00 Isosorbide Mononitrate 60 Mg Tab.Er.24h PO DAILY ROCKY Protocol Levothyroxine Sodium 75 mcg 11/22/20 09:00 11/24/20 08:21 Levothyroxine Sodium 75 Mcg Tablet PO 75 mcg DAILY ROCKY Administration Lorazepam 0.25 mg 11/22/20 17:15 11/23/20 20:35 Lorazepam 0.5 Mg Tablet PO 0.25 mg Q8H PRN Administration anxiety/restlessness Losartan Potassium 50 mg 11/24/20 10:45 11/24/20 11:25 Losartan Potassium 50 Mg Tablet PO 50 mg DAILY ROCKY Administration Protocol Melatonin 6 mg 11/18/20 20:58 11/21/20 20:07 Melatonin 3 Mg Tablet PO 6 mg BEDTIME PRN Administration Insomnia Metoprolol Tartrate 50 mg 11/22/20 09:00 11/24/20 08:21 Metoprolol Tartrate 50 Mg Tablet PO 50 mg TID ROCKY Administration Protocol Multi-Ingred Medicated Throat Eleanor 1 spray 11/17/20 11:07 11/17/20 15:29 Throat Eleanor, Medicated 20 Ml Bottle MUCOUS MEM 1 spray Q2H PRN Administration Sore Throat Omeprazole 20 mg 11/22/20 09:00 11/24/20 08:21 Omeprazole 20 Mg Capsule.Dr PO 20 mg DAILY ROCKY Administration Ondansetron HCl 4 mg 11/18/20 12:13 11/19/20 18:06 Ondansetron Hcl 4 Mg/2 Ml Vial IVPUSH 4 mg Q8H PRN Administration Nausea and Vomiting Sodium Bicarbonate 650 mg 11/22/20 09:00 11/24/20 09:21 Sodium Bicarbonate 650 Mg Tablet PO 650 mg BID ROCKY Administration Sodium Biphosphate/Sodium Phosphate 133 ml 11/20/20 09:57 Sodium Phosphate,[place]-Dibasic 133 Ml [place] ONCE PRN Poor Colonoscopy Prep Results Sodium Biphosphate/Sodium Phosphate 133 ml 11/20/20 11:00 11/20/20 10:27 Sodium Phosphate,[place]-Dibasic 133 Ml [place] 133 ml ONCE PRN Administration Poor Colonoscopy Prep Results Sodium Chloride 3 ml 11/16/20 08:00 11/24/20 08:19 0.9 % Sodium Chloride Flush 3 Ml Syringe IVFLUSH Not Given QSHIFT ROCKY <VERN Bryant - Last Filed: 11/24/20 13:14> Labs CBC & Chem 7: : 11/24/20 04:06 11/24/20 04:06 <VERN Bryant - Last Filed: 11/24/20 13:14> Labs: Laboratory Results - last 24 hr 11/17/20 11/23/20 11/23/20 08:05 13:05 19:43 WBC RBC Hgb Hct MCV MCH MCHC RDW Plt Count MPV Absolute Nucleated RBC Nucleated RBC % (auto) PTT (Heparin Protocol) 53.1 D 43.4 L Sodium Potassium Chloride Carbon Dioxide Anion Gap BUN Creatinine Estim Creat Clear Calc Estimated GFR Random Glucose Calcium Total Bilirubin Direct Bilirubin AST ALT Alkaline Phosphatase Total Protein Albumin [place]/Lambda Ratio 1.07 L [place] Light Chain Anal 207 Lambda Light Chain Anal 193 11/24/20 11/24/20 11/24/20 02:16 04:06 04:06 WBC 11.3 H RBC 3.18 L Hgb 9.8 L Hct 30.1 L MCV 94.7 MCH 30.8 MCHC 32.6 RDW 13.7 Plt Count 327 MPV 11.3 Absolute Nucleated RBC 0.000 Nucleated RBC % (auto) 0.0 PTT (Heparin Protocol) 72.5 D Sodium 144 Potassium 3.5 Chloride 112 H Carbon Dioxide 19 L Anion Gap 17 BUN 40 H Creatinine 1.62 H Estim Creat Clear Calc 32.8 Estimated GFR 41 Random Glucose 92 Calcium 7.8 L Total Bilirubin 0.4 Direct Bilirubin 0.2 AST 26 ALT 33 Alkaline Phosphatase 114 D Total Protein 4.9 L D Albumin 2.4 L D [place]/Lambda Ratio [place] Light Chain Anal Lambda Light Chain Anal 11/24/20 08:22 WBC RBC Hgb Hct MCV MCH MCHC RDW Plt Count MPV Absolute Nucleated RBC Nucleated RBC % (auto) PTT (Heparin Protocol) 49.8 L D Sodium Potassium Chloride Carbon Dioxide Anion Gap BUN Creatinine Estim Creat Clear Calc Estimated GFR Random Glucose Calcium Total Bilirubin Direct Bilirubin AST ALT Alkaline Phosphatase Total Protein Albumin [place]/Lambda Ratio [place] Light Chain Anal Lambda Light Chain Anal <VERN Bryant - Last Filed: 11/24/20 13:14> Microbiology Microbiology Results: Microbiology 11/20/20 Unknown Direct Acid Fast Bacilli Smear - Final Colon <VERN Bryant - Last Filed: 11/24/20 13:14> Quality Stroke Does the patient have a stroke diagnosis?: No <VERN Bryant - Last Filed: 11/24/20 13:14> VTE Prior VTE?: No <VERN Bryant - Last Filed: 11/24/20 13:14> VTE Risk Level:: Medical - moderate - high <VERN Bryant - Last Filed: 11/24/20 13:14> VTE Device Contraindication: N/A - Device Ordered <VERN Bryant - Last Filed: 11/24/20 13:14> VTE Drug Contraindication: N/A - Med Ordered <VERN Bryant - Last Filed: 11/24/20 13:14> Assessment and Plan (1) Cardiomyopathy: Status: Acute <VERN Bryant - Last Filed: 11/24/20 13:14> Assessment and Plan: 80-year-old male with a past medical history of hypertension, hypothyroidism, hiatal hernia, 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 Creatinine trended back up to 1.96 after starting lasix. lasix held yesterday and Scr trending down to 1.62 -trend BMP -hold PATI-i -nephrology following HTN Bp still elevated. on multiple meds at home -- all were on hold for SBO and was treated with IV meds -continue metoprolol for A. Fib -started on imdur 11/23 -nephro rec starting losartan due to proteinuria Metabolic acidosis in setting of kathleen Improving -bicarb po, decrease to once daily given fluid overload -nephrology following -follow BMP A. fib back is NSR echo from 11/18 showing likely Takatsubo -continue metoprolol -d/c digoxin -start heparin drip for AC. 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 -resolved hypothyroidism -continue synthroid DVT prophylaxis: heparin Code status: Full code - poor prognosis, will need goals of care discussion Attending Dr. Arroyo <VERN Bryant - Last Filed: 11/24/20 13:14> (2) Apical mural thrombus: Status: Acute <VERN Bryant - Last Filed: 11/24/20 13:14> (3) New onset atrial fibrillation: Status: Acute <VERN Bryant - Last Filed: 11/24/20 13:14> (4) Acute renal failure: Status: Acute <VERN Bryant - Last Filed: 11/24/20 13:14> (5) Small bowel obstruction: Status: Acute <VERN Bryant - Last Filed: 11/24/20 13:14>
[2020-11-24] MEDS: Acetaminophen 325 MG TABLET 650 MG PO (12:57)
[2020-11-24 15:29] LABS: PTT Heparin Drip 60.2 SEC (53-77.9)
[2020-11-24 18:30] LABS: OBS Int Ctl Valid YES; OBS1 NEGATIVE (NEGATIVE)
[2020-11-24] MEDS: LORazepam 0.5 MG TABLET 0.25 MG PO (21:05)
[2020-11-24 22:07] LABS: PTT Heparin Drip 47.2 SEC (53-77.9)
[2020-11-25] VITALS (8 sets, daily range): BP systolic 130–162; BP diastolic 59–99; PULSE 70–133; RESP 17–20; TEMP 36.4–38; O2SAT 92–99
[2020-11-25] MEDS: Melatonin 3 MG TABLET 6 MG PO ×2 (00:31→22:00)
[2020-11-25 04:19] LABS: Hematocrit 35.1 % (42-52); Hemoglobin 11.4 g/dl (14.0-18.0); Mean Corpuscular HGB Conc 32.5 g/dl (31.0-36.0); Mean Corpuscular Hemoglobin 31.5 pg (27.0-33.0); Mean Platelet Volume 10.9 fL (9.4-12.4); Platelet Count 256 X10*3/uL (160-400); Red Blood Count 3.62 X10*6/uL (4.60-5.80); Red Cell Distribution Width 13.8 % (11.0-16.0); White Blood Count 16.8 X10*3/uL (4.8-10.8)
[2020-11-25] MEDS: LORazepam 0.5 MG TABLET 0.25 MG PO ×2 (04:19→18:36)
[2020-11-25 04:27] LABS: PTT Heparin Drip 88.8 SEC (53-77.9)
[2020-11-25] MEDS: Heparin Sodium,Porcine/1/2NS 25,000 UNIT/250 ML IV.SOLN 11.5 UNIT IVCONT (04:43)
[2020-11-25 05:04] LABS: Anion Gap 17 (12-20); Blood Urea Nitrogen 34 mg/dL (9-16); Calcium 8.1 mg/dL (8.4-10.2); Carbon Dioxide 17 mmol/L (22-29); Chloride 113 mmol/L (96-108); Creatinine Clr Calc Pharmacy 32.6; Estimated Glomerular Filt Rate 41; Glucose Random 132 mg/dL (60-115); Potassium 3.5 mmol/L (3.3-5.1); Sodium 143 mmol/L (135-145)
--- NOTE | 2020-11-25 08:42 | P.PNNP_ITS ---
Subjective Subjective Date of Service: 11/25/20 Interval history: seen and evaluated this morning no overnight events Sitting up in [facility] chair Having breakfast Feels better Physical Exam Vital Signs: Vital Signs: Last Vital Signs Temp 98.1 F 11/25/20 07:34 Pulse 70 11/25/20 07:34 Resp 18 11/25/20 07:34 BP 130/59 L 11/25/20 07:34 Pulse Ox 95 11/25/20 07:34 Body Mass Index 22.0 Const General: comfortable, no acute distress, alert and awake Nutritional Appearance: thin Orientation/consciousness: patient oriented x3 HENMT Head: Yes normocephalic and Yes atraumatic Eyes Sclerae: sclerae normal Chest Chest palpation & inspection: normal inspection of the chest Resp Effort & Inspection: normal respiratory effort and no respiratory distress Cardio Jugular venous distension: no JVD Rate: regular rate Rhythm: abnormal rhythm irregularly irregular GI Palpation (GI): Soft to palpation and nontender Neuro General: patient oriented x3 Cranial nerves: Yes CN's II-XII intact bilaterally and Yes Bilaterally intact EOM present Extrem Other: b/l leg edema ++ Objective Data Labs CBC & Chem 7: 11/25/20 04:13 11/25/20 04:13 Labs: Laboratory Results - last 24 hr 11/24/20 11/24/20 11/24/20 04:06 08:22 15:07 WBC RBC Hgb Hct MCV MCH MCHC RDW Plt Count MPV Absolute Nucleated RBC Nucleated RBC % (auto) PTT (Heparin Protocol) 49.8 L D 60.2 D Sodium Potassium Chloride Carbon Dioxide Anion Gap BUN Creatinine Estim Creat Clear Calc Estimated GFR Random Glucose Calcium Total Bilirubin 0.4 Direct Bilirubin 0.2 AST 26 ALT 33 Alkaline Phosphatase 114 D Total Protein 4.9 L D Albumin 2.4 L D Stool Occult Blood 11/24/20 11/24/20 11/25/20 18:15 21:43 04:13 WBC 16.8 H RBC 3.62 L Hgb 11.4 L Hct 35.1 L MCV 97.0 MCH 31.5 MCHC 32.5 RDW 13.8 Plt Count 256 MPV 10.9 Absolute Nucleated RBC 0.000 Nucleated RBC % (auto) 0.0 PTT (Heparin Protocol) 47.2 L D Sodium Potassium Chloride Carbon Dioxide Anion Gap BUN Creatinine Estim Creat Clear Calc Estimated GFR Random Glucose Calcium Total Bilirubin Direct Bilirubin AST ALT Alkaline Phosphatase Total Protein Albumin Stool Occult Blood NEGATIVE 11/25/20 11/25/20 04:13 04:13 WBC RBC Hgb Hct MCV MCH MCHC RDW Plt Count MPV Absolute Nucleated RBC Nucleated RBC % (auto) PTT (Heparin Protocol) 88.8 H D Sodium 143 Potassium 3.5 Chloride 113 H Carbon Dioxide 17 L Anion Gap 17 BUN 34 H Creatinine 1.63 H Estim Creat Clear Calc 32.6 Estimated GFR 41 Random Glucose 132 H D Calcium 8.1 L Total Bilirubin Direct Bilirubin AST ALT Alkaline Phosphatase Total Protein Albumin Stool Occult Blood Microbiology Microbiology Results: Microbiology 11/20/20 Unknown Colon Direct Acid Fast Bacilli Smear - Final 11/16/20 03:12 Blood - Venous Blood Culture - Final No growth after 5 days. 11/16/20 03:10 Blood - Venous Blood Culture - Final No growth after 5 days. 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 KATHLEEN _ Better - Cr is stable A. fib RVR NSTEMI Fluid overload Partial SBO possibly secondary to inflammatory vs neoplastic process Metabolic acidosis Hypernatremai Pt taking Po Suggest 1.5 L fluid restriction 2 G Na diet Leg elevation Continue sodium Bicarb - Can lower dose CO2 > 20 Can add Bumex 1 mg daily for edema F/u K and Divalents and replace Avoid nephrotoxins Total time spent is greater than 50% in coordination of care (as documented) at patient's floor/unit and/or counseling patient: Procedures Date of Service Date of Service: 11/25/20 Progress Note: Quality Stroke Does the patient have a stroke diagnosis?: No
[2020-11-25] MEDS: Metoprolol Tartrate 50 MG TABLET PO (09:12)
[2020-11-25] MEDS: Omeprazole 20 MG CAPSULE.DR PO (09:12)
[2020-11-25] MEDS: Losartan Potassium 50 MG TABLET PO ×2 (09:12→22:00)
[2020-11-25] MEDS: Levothyroxine Sodium 75 MCG TABLET PO (09:12)
[2020-11-25] MEDS: Isosorbide Mononitrate 60 MG TAB.ER.24H PO (09:13)
[2020-11-25] MEDS: Sodium Bicarbonate 650 MG TABLET PO (09:14)
[2020-11-25 11:25] LABS: PTT Heparin Drip 45.9 SEC (53-77.9)
--- NOTE | 2020-11-25 11:38 | PM.PNCARD ---
Subjective Subjective Date of Service: 11/25/20 <ANDRE Granados - Last Filed: 11/25/20 13:06> 11/25/20 <Munir Guillory MD - Last Filed: 11/25/20 16:28> Principal diagnosis: CMP, LV thrombus, PAF, elevated BNP, SBO/ mass <ANDRE Granados - Last Filed: 11/25/20 13:06> Interval history: Cardiology follow up for CMP, LV Thrombus, PAF, elevated BNP. Seen at 0830. Today he reports that he is feeling better than prior days. He denies abdomenal discomfort, nausea or vomiting. Has some bloating still. Able to eat some breakfast. Breathing is comfortable. Not wearing O2. No reports of chest pains or palpitations. No dizziness, presyncope, PND, orthopnea. He does have pitting lower leg edema that he states has improved some in last few days. Steady on feet with standing, using walker. Daughter present. <ANDRE Granados - Last Filed: 11/25/20 13:06> Review of Systems Review of Systems as above <ANDRE Granados - Last Filed: 11/25/20 13:06> Yes all other systems are reviewed and are negative <ANDRE Granados - Last Filed: 11/25/20 13:06> Physical Exam Vital Signs: Last Vital Signs Temp 97.5 F 11/25/20 11:29 Pulse 81 11/25/20 11:29 Resp 20 11/25/20 11:29 BP 140/59 H 11/25/20 11:29 Pulse Ox 99 11/25/20 11:29 Body Mass Index 22.0 <ANDRE Granados - Last Filed: 11/25/20 13:06> Const General: cooperative, no acute distress, alert and awake <ANDRE Granados Last Filed: 11/25/20 13:06> Orientation/consciousness: patient oriented x3 <ANDRE Granados Last Filed: 11/25/20 13:06> HENMT Head: Yes normal to inspection <ANDRE Granados - Last Filed: 11/25/20 13:06> Neck Neck: Yes normal visual inspection and Yes no JVD <[facility]ravis Mantilla [facility] - Last Filed: 11/25/20 13:06> Resp Effort & Inspection: normal respiratory effort, able to speak in complete sentences and not labored <[facility] - Last Filed: 11/25/20 13:06> Auscultation: clear to auscultation bilaterally, no crackles, no rales, no rhonchi and no wheezes <Rajani Annalee [facility] Last Filed: 11/25/20 13:06> Cardio Palpation: normal PMI <[facility] Last Filed: 11/25/20 13:06> Rate: regular rate <[facility] Last Filed: 11/25/20 13:06> Rhythm: regular rhythm <[facility] Last Filed: 11/25/20 13:06> Heart sounds: S1 normal heart sound present and S2 normal heart sound present <[facility] - Last Filed: 11/25/20 13:06> GI Other: rounded, soft, denies tenderness <[facility] Last Filed: 11/25/20 13:06> Neuro General: patient oriented x3 <[facility]ajani Annalee [facility] - Last Filed: 11/25/20 13:06> Extrem Other: soft pitting edema of lower legs bilaterally <[facility] Last Filed: 11/25/20 13:06> Results Labs and Meds Result diagrams: : 11/25/20 04:13 11/25/20 04:13 <[facility]ani Annalee [facility] - Last Filed: 11/25/20 13:06> Lab results: Laboratory Results - last 24 hr 11/24/20 11/24/20 11/24/20 15:07 18:15 21:43 WBC RBC Hgb Hct MCV MCH MCHC RDW Plt Count MPV Absolute Nucleated RBC Nucleated RBC % (auto) PTT (Heparin Protocol) 60.2 D 47.2 L D Sodium Potassium Chloride Carbon Dioxide Anion Gap BUN Creatinine Estim Creat Clear Calc Estimated GFR Random Glucose Calcium Stool Occult Blood NEGATIVE 11/25/20 11/25/20 11/25/20 04:13 04:13 04:13 WBC 16.8 H RBC 3.62 L Hgb 11.4 L Hct 35.1 L MCV 97.0 MCH 31.5 MCHC 32.5 RDW 13.8 Plt Count 256 MPV 10.9 Absolute Nucleated RBC 0.000 Nucleated RBC % (auto) 0.0 PTT (Heparin Protocol) 88.8 H D Sodium 143 Potassium 3.5 Chloride 113 H Carbon Dioxide 17 L Anion Gap 17 BUN 34 H Creatinine 1.63 H Estim Creat Clear Calc 32.6 Estimated GFR 41 Random Glucose 132 H D Calcium 8.1 L Stool Occult Blood 11/25/20 10:21 WBC RBC Hgb Hct MCV MCH MCHC RDW Plt Count MPV Absolute Nucleated RBC Nucleated RBC % (auto) PTT (Heparin Protocol) 45.9 L D Sodium Potassium Chloride Carbon Dioxide Anion Gap BUN Creatinine Estim Creat Clear Calc Estimated GFR Random Glucose Calcium Stool Occult Blood <NEVAEH GranadosC - Last Filed: 11/25/20 13:06> Progress Note: A&P Assessment and plan (1) Cardiomyopathy: Status: Acute <NEVAEH GranadosC - Last Filed: 11/25/20 13:06> Assessment and Plan: Admit with SBO treated conservatively, colon mass which has biopsy pending. EKG had T wave inversions. Echo 11/18/20 with EF 55-60%, apex dyskinetic, severe pulm HTN . 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 Then had new onset afib RVR, elevated troponins. 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 Could still have CAD. Being managed medically at present with Metoprolol and Losartan. Will optimize meds: increasing Metoprolol tartrate to 100mg bid, increasing Losartan to 50mg bid. Eventual ischemic evaluation. <NEVAEH GranadosC - Last Filed: 11/25/20 13:06> Patient seen and case discussed with Rajani elkins. Patient developed sudden onset severe LV systolic dysfunction with regional wall motion abnormalities apical thrombus. He did have small area of apical dyskinetic segment on prior echocardiogram. There is likelihood of underlying coronary artery disease. However he currently has no symptoms of acute myocardial ischemia. He has multiple medical issues going on. Would maximize his medical therapy at this point in time. Increase metoprolol to 100 mg b.i.d. and losartan to 50 mg b.i.d. for further neurohormonal modulation. Continue to watch for signs and symptoms of heart failure given his positive fluid balance as as reduced LV systolic function. Patient is advised to call the nurse with any new symptoms. If it is stress-induced cardiomyopathy this should result in significant improvement LV systolic function in 10-14 days. Will require ischemic workup to definitively rule out obstructive coronary artery disease, this would absolutely be essential if there is planned surgery. Continue low dose aspirin therapy. High-intensity statin therapy. IV heparin to be switched and transition to oral anticoagulation with warfarin <Munir Guillory MD - Last Filed: 11/25/20 16:28> (2) Elevated troponin: Status: Acute <ANDRE Granados - Last Filed: 11/25/20 13:06> Assessment and Plan: Troponin initially normal this admit, then julissa to 862 on 11/22. Notes reviewed and I do not see that he had CP. He did have afib RVR. Echo with findings consistent with Takotsubo CMP. Elevated troponin is likely related to Takotsubo CMP however ischemia will need to be ruled out. On Heparin drip for apical thrombus and afib. On Metoprolol, Losartan as above. Continue imdur. <ANDRE Granados - Last Filed: 11/25/20 13:06> (3) Apical mural thrombus: Status: Acute <ANDRE Granados - Last Filed: 11/25/20 13:06> Assessment and Plan: Noted on limited echo 11/22/20. On Heparin drip per protocol, for anticoagulation. Colon mass biopsy is still pending. If no plan for surgical intervention this admit - then plan to start on Coumadin for anticoagulation. INR goal 2-3. Once therapeutic, Heparin can be stopped. Use of a NOAC is not indicated for tx of apical thrombus. <ANDRE Granados - Last Filed: 11/25/20 13:06> (4) New onset atrial fibrillation: Status: Acute <ANDRE Granados - Last Filed: 11/25/20 13:06> Assessment and Plan: New finding this admit. Initially EKG had shows SR with freq PACs. Tele / repeat EKG does confirm afib. Tele today shows SR, freq PACs rates 90-120. On Metoprolol for rate control. Will be increasing dose to 100mg BID, from 50mg TID. CHADSVASc score of 4. Currently on Heparin for anticoagulation. Start on Coumadin as above. Ongoing tele monitoring <ANDRE Granados - Last Filed: 11/25/20 13:06> Atrial fibrillation, currently maintaining sinus rhythm. Pursue increase metoprolol therapy. If he has recurrent atrial fibrillation would consider oral antiarrhythmic drug therapy with amiodarone. Continue IV heparin with transition to p.o. warfarin therapy with target INR between 2 and 3. Follow with the patient. <Munri Guillory MD - Last Filed: 11/25/20 16:28> (5) PAC (premature atrial contraction): Status: Acute <ANDRE Granados - Last Filed: 11/25/20 13:06> Assessment and Plan: Freq PACs noted on EKG and tele monitoring this admit. Now on Metoprolol. <ANDRE Granados - Last Filed: 11/25/20 13:06> (6) Small bowel obstruction: Status: Acute <ANDRE Granados Last Filed: 11/25/20 13:06> Assessment and Plan: Being followed by GI, surgery, hospitalists. <ANDRE Granados - Last Filed: 11/25/20 13:06> (7) Essential hypertension: Status: Acute <ANDRE Granados - Last Filed: 11/25/20 13:06> Assessment and Plan: Mild elevation. Further med titration as above. Ongoing monitoring per unit standard. <ANDRE Granados - Last Filed: 11/25/20 13:06> (8) Elevated brain natriuretic peptide (BNP) level: Status: Acute <ANDRE Granados Last Filed: 11/25/20 13:06> Assessment and Plan: BNP elevated to 3526. Fluid balance is +11 liters. On exam he does have soft bilateral lower leg edema. No other signs indicating decompensated HF. His EF is reduced at 25-30% and is at risk for fluid retention. Watch for HF symptoms and diurese if indicated. <ANDRE Granados - Last Filed: 11/25/20 13:06> Fall Risk Details Current Medications: Current Medications Generic Name Dose Route Start Last Admin Trade Name Freq PRN Reason Stop Dose Admin Acetaminophen 650 mg 11/16/20 05:21 Acetaminophen Supp 650 Mg Supp.Rect MI Q6H PRN Pain, Mild (Pain Scale 1-3) Acetaminophen 650 mg 11/24/20 10:30 11/24/20 12:57 Acetaminophen 325 Mg Tablet PO 650 mg Q6H PRN Administration fever, pain 1-3 Benzocaine 1 lozenge 11/18/20 10:35 11/19/20 14:30 Throat Lozenge, Medicated Lozenge MUCOUS MEM 1 lozenge Q2H PRN Administration Sore Throat Heparin Sodium (Porcine) 2,600 unit 11/22/20 07:50 11/24/20 22:26 Heparin Sodium,Porcine 5,000 Unit/Ml Vial 40 unit/kg (2600 unit) 2,600 unit IVPUSH Administration PROTOCOL BOLUS PRN 40 unit/kg - Heparin Protocol Protocol Heparin Sodium (Porcine) 5,100 unit 11/22/20 07:50 Heparin Sodium,Porcine 5,000 Unit/Ml Vial 80 unit/kg (5100 unit) IVPUSH PROTOCOL BOLUS PRN 80 unit/kg - Heparin Protocol Protocol Heparin Sodium/Sodium Chloride 25,000 unit in 250 mls @ 0 mls/hr 11/22/20 08:00 11/25/20 04:43 IVCONT 18 units/kg/hr .Q0M ROCKY 11.5 mls/hr Administration Protocol Per Protocol Isosorbide Mononitrate 60 mg 11/25/20 09:00 11/25/20 09:13 Isosorbide Mononitrate 60 Mg Tab.Er.24h PO 60 mg DAILY ROCKY Administration Protocol Levothyroxine Sodium 75 mcg 11/22/20 09:00 11/25/20 09:12 Levothyroxine Sodium 75 Mcg Tablet PO 75 mcg DAILY ROCKY Administration Lorazepam 0.25 mg 11/22/20 17:15 11/25/20 04:19 Lorazepam 0.5 Mg Tablet PO 0.25 mg Q8H PRN Administration anxiety/restlessness Lorazepam 0.5 mg 11/25/20 10:30 Lorazepam 2 Mg/Ml Vial IVPUSH ONCE PRN anxiety Losartan Potassium 50 mg 11/25/20 21:00 Losartan Potassium 50 Mg Tablet PO BID [facility] Protocol Melatonin 6 mg 11/18/20 20:58 11/25/20 00:31 Melatonin 3 Mg Tablet PO 6 mg BEDTIME PRN Administration Insomnia Metoprolol Tartrate 100 mg 11/25/20 21:00 Metoprolol Tartrate 100 Mg Tablet PO BID [facility] Protocol Multi-Ingred Medicated Throat [place] 1 spray 11/17/20 11:07 11/17/20 15:29 Throat [place], Medicated 20 Ml Bottle MUCOUS MEM 1 spray Q2H PRN Administration Sore Throat Omeprazole 20 mg 11/22/20 09:00 11/25/20 09:12 Omeprazole 20 Mg Capsule.Dr PO 20 mg DAILY ROCKY Administration Ondansetron HCl 4 mg 11/18/20 12:13 11/19/20 18:06 Ondansetron Hcl 4 Mg/2 Ml Vial IVPUSH 4 mg Q8H PRN Administration Nausea and Vomiting Sodium Bicarbonate 650 mg 11/25/20 09:00 11/25/20 09:14 Sodium Bicarbonate 650 Mg Tablet PO 650 mg DAILY ROCKY Administration Sodium Biphosphate/Sodium Phosphate 133 ml 11/20/20 09:57 Sodium Phosphate,Coos-Dibasic 133 Ml Enema MI ONCE PRN Poor Colonoscopy Prep Results Sodium Biphosphate/Sodium Phosphate 133 ml 11/20/20 11:00 11/20/20 10:27 Sodium Phosphate,Coos-Dibasic 133 Ml Enema MI 133 ml ONCE PRN Administration Poor Colonoscopy Prep Results Sodium Chloride 3 ml 11/16/20 08:00 11/25/20 09:09 0.9 % Sodium Chloride Flush 3 Ml Syringe IVFLUSH Not Given QSHIFT [facility] <ANDRE Granados - Last Filed: 11/25/20 13:06> Time Spent With Patient Time: Total time spent is greater than 50% in coordination of care (as documented) at patient's floor/unit and/or counseling patient: 24 <ANDRE Granados - Last Filed: 11/25/20 13:06> Time with patient: 15 - 24 minutes <ANDRE Granados - Last Filed: 11/25/20 13:06> Progress Note: Quality Stroke Does the patient have a stroke diagnosis?: No <ANDRE Granados - Last Filed: 11/25/20 13:06> Procedures Date of Service Date of Service: 11/26/20 <ANDRE Granados - Last Filed: 11/25/20 13:06>
[2020-11-25] MEDS: Heparin Sodium,Porcine 5,000 UNIT/ML VIAL 2600 UNIT IVPUSH (11:40)
--- NOTE | 2020-11-25 11:53 | P.PNIM_ITS ---
Subjective Subjective Date of Service: 11/25/20 <Gayatri Thompson NP - Last Filed: 11/25/20 12:02> 11/26/20 <Sagar Cordoba MD - Last Filed: 11/26/20 16:11> Interval History: Follow up CHF, cmp, kathleen Sitting up in the chair feels weak appetite good <Gayatri Thompson NP - Last Filed: 11/25/20 12:02> Physical Exam Vital Signs: Vital Signs: Last Vital Signs Temp 97.5 F 11/25/20 11:29 Pulse 81 11/25/20 11:29 Resp 20 11/25/20 11:29 BP 140/59 H 11/25/20 11:29 Pulse Ox 99 11/25/20 11:29 Body Mass Index 22.0 <Gayatri Thompson NP - Last Filed: 11/25/20 12:02> Appearing in no acute distress, weak appearing sitting in chair lung sounds are clear to auscultation heart regular rate rhythm, clear S1, S2 positive bowel sounds, abdomen is soft, nontender neuro patient is alert x3, no focal deficits <Gayatri Thompson NP - Last Filed: 11/25/20 12:02> Objective Data Current Medications Generic Name Dose Route Start Last Admin Trade Name Freq PRN Reason Stop Dose Admin Acetaminophen 650 mg 11/16/20 05:21 Acetaminophen Supp 650 Mg Supp.Rect PA Q6H PRN Pain, Mild (Pain Scale 1-3) Acetaminophen 650 mg 11/24/20 10:30 11/24/20 12:57 Acetaminophen 325 Mg Tablet PO 650 mg Q6H PRN Administration fever, pain 1-3 Benzocaine 1 lozenge 11/18/20 10:35 11/19/20 14:30 Throat Lozenge, Medicated Lozenge MUCOUS MEM 1 lozenge Q2H PRN Administration Sore Throat Heparin Sodium (Porcine) 2,600 unit 11/22/20 07:50 11/25/20 11:40 Heparin Sodium,Porcine 5,000 Unit/Ml Vial 40 unit/kg (2600 unit) 2,600 unit IVPUSH Administration PROTOCOL BOLUS PRN 40 unit/kg - Heparin Protocol Protocol Heparin Sodium (Porcine) 5,100 unit 11/22/20 07:50 Heparin Sodium,Porcine 5,000 Unit/Ml Vial 80 unit/kg (5100 unit) IVPUSH PROTOCOL BOLUS PRN 80 unit/kg - Heparin Protocol Protocol Heparin Sodium/Sodium Chloride 25,000 unit in 250 mls @ 0 mls/hr 11/22/20 08:00 11/25/20 11:41 IVCONT 20 units/kg/hr .Q0M ROCKY 12.78 mls/hr Titration Protocol Per Protocol Isosorbide Mononitrate 60 mg 11/25/20 09:00 11/25/20 09:13 Isosorbide Mononitrate 60 Mg Tab.Er.24h PO 60 mg DAILY [facility] Administration Protocol Levothyroxine Sodium 75 mcg 11/22/20 09:00 11/25/20 09:12 Levothyroxine Sodium 75 Mcg Tablet PO 75 mcg DAILY [facility] Administration Lorazepam 0.25 mg 11/22/20 17:15 11/25/20 04:19 Lorazepam 0.5 Mg Tablet PO 0.25 mg Q8H PRN Administration anxiety/restlessness Lorazepam 0.5 mg 11/25/20 10:30 Lorazepam 2 Mg/Ml Vial IVPUSH ONCE PRN anxiety Losartan Potassium 50 mg 11/25/20 21:00 Losartan Potassium 50 Mg Tablet PO BID [facility] Protocol Melatonin 6 mg 11/18/20 20:58 11/25/20 00:31 Melatonin 3 Mg Tablet PO 6 mg BEDTIME PRN Administration Insomnia Metoprolol Tartrate 100 mg 11/25/20 21:00 Metoprolol Tartrate 100 Mg Tablet PO BID [facility] Protocol Multi-Ingred Medicated Throat [place] 1 spray 11/17/20 11:07 11/17/20 15:29 Throat [place], Medicated 20 Ml Bottle MUCOUS MEM 1 spray Q2H PRN Administration Sore Throat Omeprazole 20 mg 11/22/20 09:00 11/25/20 09:12 Omeprazole 20 Mg Capsule.Dr PO 20 mg DAILY [facility] Administration Ondansetron HCl 4 mg 11/18/20 12:13 11/19/20 18:06 Ondansetron Hcl 4 Mg/2 Ml Vial IVPUSH 4 mg Q8H PRN Administration Nausea and Vomiting Sodium Bicarbonate 650 mg 11/25/20 09:00 11/25/20 09:14 Sodium Bicarbonate 650 Mg Tablet PO 650 mg DAILY ROCKY Administration Sodium Biphosphate/Sodium Phosphate 133 ml 11/20/20 09:57 Sodium Phosphate,[place]ear[place]-Dibasic 133 Ml Enema PA ONCE PRN Poor Colonoscopy Prep Results Sodium Biphosphate/Sodium Phosphate 133 ml 11/20/20 11:00 11/20/20 10:27 Sodium Phosphate,Searcy-Dibasic 133 Ml Enema PA 133 ml ONCE PRN Administration Poor Colonoscopy Prep Results Sodium Chloride 3 ml 11/16/20 08:00 11/25/20 09:09 0.9 % Sodium Chloride Flush 3 Ml Syringe IVFLUSH Not Given QSHIFT ROCKY <Gayatri Thompson NP - Last Filed: 11/25/20 12:02> Labs CBC & Chem 7: : 11/26/20 06:10 11/26/20 06:10 <Gayatri Thompson NP - Last Filed: 11/25/20 12:02> Labs: Laboratory Results - last 24 hr 11/24/20 11/24/20 11/24/20 15:07 18:15 21:43 MCV MCH MCHC RDW Plt Count MPV Absolute Nucleated RBC Nucleated RBC % (auto) PTT (Heparin Protocol) 60.2 D 47.2 L D Anion Gap Estim Creat Clear Calc Estimated GFR Random Glucose Calcium Stool Occult Blood NEGATIVE 11/25/20 11/25/20 11/25/20 04:13 04:13 04:13 MCV 97.0 MCH 31.5 MCHC 32.5 RDW 13.8 Plt Count 256 MPV 10.9 Absolute Nucleated RBC 0.000 Nucleated RBC % (auto) 0.0 PTT (Heparin Protocol) 88.8 H D Anion Gap 17 Estim Creat Clear Calc 32.6 Estimated GFR 41 Random Glucose 132 H D Calcium 8.1 L Stool Occult Blood 11/25/20 10:21 MCV MCH MCHC RDW Plt Count MPV Absolute Nucleated RBC Nucleated RBC % (auto) PTT (Heparin Protocol) 45.9 L D Anion Gap Estim Creat Clear Calc Estimated GFR Random Glucose Calcium Stool Occult Blood <Gayatri Thompson NP - Last Filed: 11/25/20 12:02> Microbiology Microbiology Results: Microbiology 11/20/20 Unknown Colon Direct Acid Fast Bacilli Smear - Final 11/16/20 03:12 Blood - Venous Blood Culture - Final No growth after 5 days. 11/16/20 03:10 Blood - Venous Blood Culture - Final No growth after 5 days. 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 A. fib back is NSR echo from 11/18 showing likely Takatsubo -continue metoprolol -d/c digoxin -Heparin drip for AC. Also start coumadin today. 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 Creatinine trending down. lasix held yesterday and Scr trending down to 1.63 -trend BMP -hold PATI-i -nephrology following HTN Bp still elevated. on multiple meds at home -- all were on hold for SBO and was treated with IV meds -continue metoprolol for A. Fib -started on imdur 11/23 -nephro rec starting losartan due to proteinuria Metabolic acidosis in setting of kathleen Improving -bicarb po, decrease to once daily given fluid overload -nephrology following -follow BMP NSTEMI likely type 2 r/t afib rvr, and likely Takatsubo CM trops flat repeat limited echo with reduced EF 25-30% as well as thrombus in left ventricle -cardiology following -on heparin for above afib Partial SBO possibly secondary to inflammatory vs neoplastic process s/p colonoscopy 11/20, circumferential mass noted at terminal ileum, mass at cecum, pathology pending patient goal is to avoid surgery if possible Having BM, tolerating full liqs -advance to low residue diet -surgery following -oncology following Aspiration Pneumonia Not requiring supplemental o2 -s/p 7 days of zosyn Hypernatremia. -resolved hypothyroidism -continue synthroid DVT prophylaxis: heparin Code status: Full code - poor prognosis, will need goals of care discussion Attending Dr. Cordoba <Gayatri Thompson NP - Last Filed: 11/25/20 12:02> Quality Stroke Does the patient have a stroke diagnosis?: No <Gayatri Thompson NP - Last Filed: 11/25/20 12:02> VTE Prior VTE?: No <Gayatri Thompson NP - Last Filed: 11/25/20 12:02> VTE Risk Level:: Medical - moderate - high <Gayatri Thompson NP - Last Filed: 11/25/20 12: 02> VTE Device Contraindication: N/A - Device Ordered <Gayatri Thompson NP - Last Filed: 11/25/20 12:02> VTE Drug Contraindication: N/A - Med Ordered <Gayatri Thompson NP - Last Filed: 11/25/20 12:02>
[2020-11-25 12:23] LABS: INTERNATIONAL NORM RATIO 1.3 (0.9-1.1); Prothrombin Time 14.3 SEC (9.9-13.0)
--- NOTE | 2020-11-25 15:14 | MHC.CM.PN ---
per rounds today dc plan remains home no services
[2020-11-25] MEDS: Warfarin Sodium 5 MG TABLET PO (18:01)
[2020-11-25] MEDS: Metoprolol Tartrate 100 MG TABLET PO (22:00)
[2020-11-25 23:00] LABS: PTT Heparin Drip 68.4 SEC (53-77.9)
[2020-11-26] VITALS (10 sets, daily range): BP systolic 130–160; BP diastolic 59–84; PULSE 63–83; RESP 18–19; TEMP 35.7–37.2; O2SAT 95–98
[2020-11-26] MEDS: Heparin Sodium,Porcine/1/2NS 25,000 UNIT/250 ML IV.SOLN 12.78 UNIT IVCONT ×2 (01:56→22:59)
[2020-11-26] MEDS: LORazepam 0.5 MG TABLET 0.25 MG PO ×3 (05:07→23:32)
[2020-11-26 06:59] LABS: Hematocrit 33.6 % (42-52); Hemoglobin 10.8 g/dl (14.0-18.0); Mean Corpuscular HGB Conc 32.1 g/dl (31.0-36.0); Mean Corpuscular Hemoglobin 31.2 pg (27.0-33.0); Mean Corpuscular Volume 97.1 fL (80-98); Mean Platelet Volume 11.3 fL (9.4-12.4); Platelet Count 198 X10*3/uL (160-400); Red Blood Count 3.46 X10*6/uL (4.60-5.80); Red Cell Distribution Width 14.1 % (11.0-16.0)
[2020-11-26 07:05] LABS: INTERNATIONAL NORM RATIO 1.2 (0.9-1.1); Prothrombin Time 13.2 SEC (9.9-13.0)
[2020-11-26 07:08] LABS: PTT Heparin Drip 61.4 SEC (53-77.9)
[2020-11-26 07:29] LABS: Anion Gap 15 (12-20); Blood Urea Nitrogen 36 mg/dL (9-16); Calcium 8.1 mg/dL (8.4-10.2); Carbon Dioxide 19 mmol/L (22-29); Chloride 112 mmol/L (96-108); Creatinine Clr Calc Pharmacy 32.8; Estimated Glomerular Filt Rate 41; Glucose Random 105 mg/dL (60-115); Potassium 3.4 mmol/L (3.3-5.1); Sodium 143 mmol/L (135-145)
--- NOTE | 2020-11-26 08:34 | PM.PNCARD ---
Subjective Subjective Date of Service: 11/26/20 <ANDRE Granados - Last Filed: 11/26/20 09:56> 11/26/20 <Munir Guillory MD - Last Filed: 11/26/20 12:59> Principal diagnosis: CMP, elevated Trop, elevated BNP, LV Thrombus, PAF, SBO/ mass <ANDRE Granados - Last Filed: 11/26/20 09:56> Interval history: Cardiology follow up for CMP, elevated Trop, elevated BNP, LV thrombus, PAF. Seen at 0815. Today he reports some sob with moving from bed to chair. Slept well with HOB elevted around 30 degrees. No cough. No chest pains, no palpitations or lightheadedness. Still has puffy leg edema. Abdomen rounded, gets more distended after eating. Denies nausea or abdomenal pains. Sitting in chair, about to eat his breakfast. <ANDRE Granados - Last Filed: 11/26/20 09:56> Review of Systems Review of Systems as above <ANDRE Granados - Last Filed: 11/26/20 09:56> Physical Exam Vital Signs: Last Vital Signs Temp 97.2 F 11/26/20 07:35 Pulse 83 11/26/20 07:35 Resp 18 11/26/20 07:35 BP 130/60 11/26/20 07:35 Pulse Ox 96 11/26/20 07:35 Body Mass Index 22.0 <ANDRE Granados - Last Filed: 11/26/20 09:56> Const General: cooperative, no acute distress, alert and awake <ANDRE Granados - Last Filed: 11/26/20 09:56> Orientation/consciousness: patient oriented x3 <ANDRE Granados - Last Filed: 11/26/20 09:56> Neck Other: JVD noted <ANDRE Granados - Last Filed: 11/26/20 09:56> Resp Other: rales noted left base, clear mostly with deep breath and cough <ANDRE Granados - Last Filed: 11/26/20 09:56> Effort & Inspection: normal respiratory effort, able to speak in complete sentences and not labored <Rajani MantillaRADHAC - Last Filed: 11/26/20 09:56> Auscultation: rales, no rhonchi and no wheezes <[facility]ajani Mantilla [facility] - Last Filed: 11/26/20 09:56> Cardio Jugular venous distension: JVD present <Rajani Annalee [facility] - Last Filed: 11/26/20 09:56> Palpation: normal PMI <Rajani Annalee [facility] - Last Filed: 11/26/20 09:56> Rate: regular rate <Rajani Annalee [facility] - Last Filed: 11/26/20 09:56> Rhythm: regular rhythm <Rajani Annalee [facility] - Last Filed: 11/26/20 09:56> Heart sounds: S1 normal heart sound present and S2 normal heart sound present <Rajani Annalee [facility] - Last Filed: 11/26/20 09:56> GI Other: rounded, nontender, soft <Rajani Annalee [facility] - Last Filed: 11/26/20 09:56> Neuro General: patient oriented x3 <Rajani Annalee [facility] - Last Filed: 11/26/20 09:56> Extrem Other: soft pitting edema in lower legs, feet <Rajani Annalee [facility] - Last Filed: 11/26/20 09:56> Results Labs and Meds Result diagrams: : 11/26/20 06:10 11/26/20 06:10 <Rajani MantillaRADHAC - Last Filed: 11/26/20 09:56> Lab results: Laboratory Results - last 24 hr 11/25/20 11/25/20 11/25/20 10:21 17:38 22:46 WBC RBC Hgb Hct MCV MCH MCHC RDW Plt Count MPV Absolute Nucleated RBC Nucleated RBC % (auto) PT 14.3 H INR 1.3 H PTT (Heparin Protocol) 45.9 L D 73.0 D 68.4 Sodium Potassium Chloride Carbon Dioxide Anion Gap BUN Creatinine Estim Creat Clear Calc Estimated GFR Random Glucose Calcium 11/26/20 11/26/20 11/26/20 06:10 06:10 06:10 WBC 12.0 H RBC 3.46 L Hgb 10.8 L Hct 33.6 L MCV 97.1 MCH 31.2 MCHC 32.1 RDW 14.1 Plt Count 198 MPV 11.3 Absolute Nucleated RBC 0.000 Nucleated RBC % (auto) 0.0 PT 13.2 H INR 1.2 H PTT (Heparin Protocol) 61.4 Sodium 143 Potassium 3.4 Chloride 112 H Carbon Dioxide 19 L Anion Gap 15 BUN 36 H Creatinine 1.62 H Estim Creat Clear Calc 32.8 Estimated GFR 41 Random Glucose 105 Calcium 8.1 L 11/26/20 06:10 WBC RBC Hgb Hct MCV MCH MCHC RDW Plt Count MPV Absolute Nucleated RBC Nucleated RBC % (auto) PT Cancelled INR Cancelled PTT (Heparin Protocol) Sodium Potassium Chloride Carbon Dioxide Anion Gap BUN Creatinine Estim Creat Clear Calc Estimated GFR Random Glucose Calcium <ANDRE Granados - Last Filed: 11/26/20 09:56> Progress Note: A&P Assessment and plan (1) Cardiomyopathy: Status: Acute <ANDRE Granados - Last Filed: 11/26/20 09:56> Assessment and Plan: Admit with SBO treated conservatively, colon mass which has biopsy pending. Initial EKG had T wave inversions. Echo 11/18/20 with EF 55-60%, apex dyskinetic, severe pulm HTN . 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 Then had new onset afib RVR, elevated troponins. 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 Still likely has underlying CAD. He is being managed medically at present with Metoprolol and Losartan. Doses increased yesterday and is tolerating. He will need ischemic evaluation to rule out obstructive CAD. According to Dr Ewing note from yesterday, this would absolutely be essential if there is planned surgery. If it is stress-induced cardiomyopathy this should result in significant improvement LV systolic function in 10-14 days . We will follow along. <ANDRE Granados - Last Filed: 11/26/20 09:56> (2) New onset atrial fibrillation: Status: Acute <ANDRE Granados - Last Filed: 11/26/20 09:56> Assessment and Plan: New finding this admit. Initially EKG had shows SR with freq PACs. Tele / repeat EKG does confirm afib. Tele today shows SR, freq PACs rates 60-80s. Probable episode of PAF last evening. No report of palpitations. On Metoprolol for rate control. CHADSVASc score of 4. Currently on Heparin for anticoagulation and has been started on coumadin. INR goal 2-3. INR today 1.2. Ongoing tele monitoring <ANDRE Granados - Last Filed: 11/26/20 09:56> (3) Apical mural thrombus: Status: Acute <ANDRE Granados - Last Filed: 11/26/20 09:56> Assessment and Plan: Noted on limited echo 11/22/20. On Heparin drip per protocol, for anticoagulation. Colon mass biopsy is still pending. If known plan for surgical intervention at present. Has been started on Coumadin for anticoagulation. INR goal 2-3. Once therapeutic, Heparin can be stopped. Use of a NOAC is not indicated for tx of apical thrombus <ANDRE Granados - Last Filed: 11/26/20 09:56> (4) Elevated troponin: Status: Acute <ANDRE Granados - Last Filed: 11/26/20 09:56> Assessment and Plan: Troponin initially normal this admit, then julissa to 862 on 11/22. Notes reviewed and I do not see that he had CP. He did have afib RVR. Echo with findings consistent with Takotsubo CMP. Elevated troponin is likely related to Takotsubo CMP however ischemia will need to be ruled out. On Heparin drip for apical thrombus and afib. On Metoprolol, Losartan as above. Continue imdur. <ANDRE Granados - Last Filed: 11/26/20 09:56> (5) Elevated brain natriuretic peptide (BNP) level: Status: Acute <ANDRE Granados - Last Filed: 11/26/20 09:56> Assessment and Plan: BNP elevated to 3526 on 11/23. Fluid balance is +11 liters. On exam he does have soft bilateral lower leg edema, JVD, rales left base. He does report some sob going from bed to chair today. Nephrology note recommends start of Bumex 1 mg daily which is starting today. With his EF is reduced at 25-30% and is at risk for fluid retention. Continue with I+O monitoring. Close monitoring of electrolyte and kidney function. Nephrology following his KATHLEEN/ CKD. Cr 1.62 today. <ANDRE Granados - Last Filed: 11/26/20 09:56> (6) PAC (premature atrial contraction): Status: Acute <ANDRE Granados - Last Filed: 11/26/20 09:56> Assessment and Plan: Freq PACs noted on EKG and tele monitoring this admit. Now on Metoprolol. <ANDRE Granados - Last Filed: 11/26/20 09:56> (7) Essential hypertension: Status: Acute <ANDRE Granados - Last Filed: 11/26/20 09:56> Assessment and Plan: Controlled at present. Tolerating metoprolol and Losartan <ANDRE Granados - Last Filed: 11/26/20 09:56> (8) Small bowel obstruction: Status: Acute <ANDRE Granados - Last Filed: 11/26/20 09:56> Assessment and Plan: Being followed by GI, surgery, hospitalist. Biopsy of mass pending. <ANDRE Granados - Last Filed: 11/26/20 09:56> (9) Acute systolic heart failure: Status: Acute <ANDRE Granados - Last Filed: 11/26/20 09:56> Assessment and Plan: Patient complaining increased shortness of breath with exertion. Noted to have fluid overload. Case discussed with Rajani and patient seen. Bibasilar rales seen. Elevated jugular venous distention. Will gently diurese with 20 mg IV push b.i.d. of Lasix. Continue losartan and metoprolol therapy. Strict intake and output chart needs to be pursued. Heart failure education to be provided. Patient not ready for discharge as he had. Continue to trend BMP and BNP. <Munir Guillory MD - Last Filed: 11/26/20 12:59> (10) Paroxysmal atrial fibrillation: Status: Acute <ANDRE Granados - Last Filed: 11/26/20 09:56> Assessment and Plan: Intermittent paroxysmal atrial fibrillation. Continue metoprolol therapy. Patient being switched to oral anticoagulation therapy with warfarin. Continue IV heparin till INR is above 2. If has recurrent episodes consider amiodarone therapy to prevent recurrent atrial fibrillation to improve cardiac status and pursue rhythm control approach. Will follow with the patient. <Munir Guillory MD - Last Filed: 11/26/20 12:59> Fall Risk Details Current Medications: Current Medications Generic Name Dose Route Start Last Admin Trade Name Freq PRN Reason Stop Dose Admin Acetaminophen 650 mg 11/16/20 05:21 Acetaminophen Supp 650 Mg Supp.Rect AL Q6H PRN Pain, Mild (Pain Scale 1-3) Acetaminophen 650 mg 11/24/20 10:30 11/24/20 12:57 Acetaminophen 325 Mg Tablet PO 650 mg Q6H PRN Administration fever, pain 1-3 Benzocaine 1 lozenge 11/18/20 10:35 11/19/20 14:30 Throat Lozenge, Medicated Lozenge MUCOUS MEM 1 lozenge Q2H PRN Administration Sore Throat Bumetanide 1 mg 11/26/20 09:00 Bumetanide 1 Mg Tablet PO DAILY [facility] Protocol Heparin Sodium (Porcine) 2,600 unit 11/22/20 07:50 11/25/20 11:40 Heparin Sodium,Porcine 5,000 Unit/Ml Vial 40 unit/kg (2600 unit) 2,600 unit IVPUSH Administration PROTOCOL BOLUS PRN 40 unit/kg - Heparin Protocol Protocol Heparin Sodium (Porcine) 5,100 unit 11/22/20 07:50 Heparin Sodium,Porcine 5,000 Unit/Ml Vial 80 unit/kg (5100 unit) IVPUSH PROTOCOL BOLUS PRN 80 unit/kg - Heparin Protocol Protocol Heparin Sodium/Sodium Chloride 25,000 unit in 250 mls @ 0 mls/hr 11/22/20 08:00 11/26/20 01:56 IVCONT 20 units/kg/hr .Q0M [facility] 12.78 mls/hr Administration Protocol Per Protocol Isosorbide Mononitrate 60 mg 11/25/20 09:00 11/25/20 09:13 Isosorbide Mononitrate 60 Mg Tab.Er.24h PO 60 mg DAILY [facility] Administration Protocol Levothyroxine Sodium 75 mcg 11/22/20 09:00 11/25/20 09:12 Levothyroxine Sodium 75 Mcg Tablet PO 75 mcg DAILY [facility] Administration Lorazepam 0.25 mg 11/22/20 17:15 11/26/20 05:07 Lorazepam 0.5 Mg Tablet PO 0.25 mg Q8H PRN Administration anxiety/restlessness Lorazepam 0.5 mg 11/25/20 10:30 Lorazepam 2 Mg/Ml Vial IVPUSH ONCE PRN anxiety Losartan Potassium 50 mg 11/25/20 21:00 11/25/20 22:00 Losartan Potassium 50 Mg Tablet PO 50 mg BID [facility] Administration Protocol Melatonin 6 mg 11/18/20 20:58 11/25/20 22:00 Melatonin 3 Mg Tablet PO 6 mg BEDTIME PRN Administration Insomnia Metoprolol Tartrate 100 mg 11/25/20 21:00 11/25/20 22:00 Metoprolol Tartrate 100 Mg Tablet PO 100 mg BID [facility] Administration Protocol Multi-Ingred Medicated Throat [place] 1 spray 11/17/20 11:07 11/17/20 15:29 Throat [place], Medicated 20 Ml Bottle MUCOUS MEM 1 spray Q2H PRN Administration Sore Throat Omeprazole 20 mg 11/22/20 09:00 11/25/20 09:12 Omeprazole 20 Mg Capsule.Dr PO 20 mg DAILY [facility] Administration Ondansetron HCl 4 mg 11/18/20 12:13 11/19/20 18:06 Ondansetron Hcl 4 Mg/2 Ml Vial IVPUSH 4 mg Q8H PRN Administration Nausea and Vomiting Sodium Bicarbonate 650 mg 11/25/20 09:00 11/25/20 09:14 Sodium Bicarbonate 650 Mg Tablet PO 650 mg DAILY [facility] Administration Sodium Biphosphate/Sodium Phosphate 133 ml 11/20/20 09:57 Sodium Phosphate,[place]-Dibasic 133 Ml Enema AL ONCE PRN Poor Colonoscopy Prep Results Sodium Biphosphate/Sodium Phosphate 133 ml 11/20/20 11:00 11/20/20 10:27 Sodium Phosphate,[place]-Dibasic 133 Ml Enema AL 133 ml ONCE PRN Administration Poor Colonoscopy Prep Results Sodium Chloride 3 ml 11/16/20 08:00 11/26/20 00:14 0.9 % Sodium Chloride Flush 3 Ml Syringe IVFLUSH Not Given QSHIFT [facility] Warfarin Sodium 5 mg 11/25/20 18:00 11/25/20 18:01 Warfarin Sodium 5 Mg Tablet PO 5 mg DAILY@1800 [facility] Administration <ANDRE Granados - Last Filed: 11/26/20 09:56> Time Spent With Patient Time: Total time spent is greater than 50% in coordination of care (as documented) at patient's floor/unit and/or counseling patient: 24 <ANDRE Granados Last Filed: 11/26/20 09:56> Time with patient: 15 - 24 minutes <ANDRE Granados Last Filed: 11/26/20 09:56> Progress Note: Quality Stroke Does the patient have a stroke diagnosis?: No <ANDRE Granados Last Filed: 11/26/20 09:56> Procedures Date of Service Date of Service: 11/26/20 <ANDRE Granados Last Filed: 11/26/20 09:56>
[2020-11-26 08:49] LABS: B Type Natriuretic Peptide 3508 pg/mL (<100)
[2020-11-26] MEDS: 0.9 % Sodium Chloride Flush 3 ML SYRINGE IVFLUSH (09:35)
[2020-11-26] MEDS: Levothyroxine Sodium 75 MCG TABLET PO (09:35)
[2020-11-26] MEDS: Sodium Bicarbonate 650 MG TABLET PO (09:35)
[2020-11-26] MEDS: Bumetanide 1 MG TABLET PO (09:36)
[2020-11-26] MEDS: Isosorbide Mononitrate 60 MG TAB.ER.24H PO (09:36)
[2020-11-26] MEDS: Metoprolol Tartrate 100 MG TABLET PO ×2 (09:36→21:57)
[2020-11-26] MEDS: Omeprazole 20 MG CAPSULE.DR PO (09:37)
[2020-11-26] MEDS: Losartan Potassium 50 MG TABLET PO ×2 (09:37→21:57)
--- NOTE | 2020-11-26 12:51 | PM.PNNEP ---
Subjective Subjective Date of Service: 11/26/20 Principal diagnosis: CMP, elevated Trop, elevated BNP, LV Thrombus, PAF, SBO/ mass Interval history: Follow up CHF, cmp, jacobo Sitting up in the chair feels weak appetite good Physical Exam Vital Signs: Vital Signs: Last Vital Signs Temp 97.8 F 11/26/20 11:26 Pulse 73 11/26/20 11:26 Resp 19 11/26/20 11:26 BP 150/59 H 11/26/20 11:26 Pulse Ox 96 11/26/20 11:26 Body Mass Index 22.0 Const General: cooperative, no acute distress, alert and awake Orientation/consciousness: patient oriented x3 Neck Other: JVD noted Resp Other: rales noted left base, clear mostly with deep breath and cough Effort & Inspection: normal respiratory effort, able to speak in complete sentences and not labored Auscultation: rales, no rhonchi and no wheezes Cardio Jugular venous distension: JVD present Palpation: normal PMI Rate: regular rate Rhythm: regular rhythm Heart sounds: S1 normal heart sound present and S2 normal heart sound present GI Other: rounded, nontender, soft Neuro General: patient oriented x3 Extrem Other: soft pitting edema in lower legs, feet Objective Data Labs CBC & Chem 7: 11/26/20 06:10 11/26/20 06:10 Labs: Laboratory Results - last 24 hr 11/25/20 11/25/20 11/26/20 17:38 22:46 06:10 WBC 12.0 H RBC 3.46 L Hgb 10.8 L Hct 33.6 L MCV 97.1 MCH 31.2 MCHC 32.1 RDW 14.1 Plt Count 198 MPV 11.3 Absolute Nucleated RBC 0.000 Nucleated RBC % (auto) 0.0 PT INR PTT (Heparin Protocol) 73.0 D 68.4 Sodium Potassium Chloride Carbon Dioxide Anion Gap BUN Creatinine Estim Creat Clear Calc Estimated GFR Random Glucose Calcium B-Natriuretic Peptide 11/26/20 11/26/20 11/26/20 06:10 06:10 06:10 WBC RBC Hgb Hct MCV MCH MCHC RDW Plt Count MPV Absolute Nucleated RBC Nucleated RBC % (auto) PT 13.2 H Cancelled INR 1.2 H Cancelled PTT (Heparin Protocol) 61.4 Sodium 143 Potassium 3.4 Chloride 112 H Carbon Dioxide 19 L Anion Gap 15 BUN 36 H Creatinine 1.62 H Estim Creat Clear Calc 32.8 Estimated GFR 41 Random Glucose 105 Calcium 8.1 L B-Natriuretic Peptide 11/26/20 06:10 WBC RBC Hgb Hct MCV MCH MCHC RDW Plt Count MPV Absolute Nucleated RBC Nucleated RBC % (auto) PT INR PTT (Heparin Protocol) Sodium Potassium Chloride Carbon Dioxide Anion Gap BUN Creatinine Estim Creat Clear Calc Estimated GFR Random Glucose Calcium B-Natriuretic Peptide 3508 H Microbiology Microbiology Results: Microbiology 11/20/20 Unknown Colon Direct Acid Fast Bacilli Smear - Final 11/16/20 03:12 Blood - Venous Blood Culture - Final No growth after 5 days. 11/16/20 03:10 Blood - Venous Blood Culture - Final No growth after 5 days. Assessment & Plan Time Spent With Patient Time: KI _ Better - Cr is stable A. fib RVR NSTEMI Fluid overload Partial SBO possibly secondary to inflammatory vs neoplastic process Metabolic acidosis Hypernatremai Pt taking Po Suggest 1.5 L fluid restriction 2 G Na diet Leg elevation Continue sodium Bicarb - Can lower dose CO2 > 20 On Bumex 1 mg daily for edema F/u K and Divalents and replace Avoid nephrotoxins Total time spent is greater than 50% in coordination of care (as documented) at patient's floor/unit and/or counseling patient: Procedures Date of Service Date of Service: 11/26/20 Progress Note: Quality Stroke Does the patient have a stroke diagnosis?: No
--- NOTE | 2020-11-26 14:41 | P.PNIM_ITS ---
Subjective Subjective Date of Service: 11/26/20 Interval History: Follow up SBO, HFrEF. Feeling better today, still weak No pain passing flatus and BM Physical Exam Vital Signs: Vital Signs: Last Vital Signs Temp 97.8 F 11/26/20 11:26 Pulse 73 11/26/20 11:26 Resp 19 11/26/20 11:26 BP 150/59 H 11/26/20 11:26 Pulse Ox 96 11/26/20 11:26 Body Mass Index 22.0 Frail appearing lung sounds are clear to auscultation heart regular rate rhythm, clear S1, S2 positive bowel sounds, abdomen is soft, nontender neuro patient is alert x3, no focal deficits Objective Data Current Medications Generic Name Dose Route Start Last Admin Trade Name Freq PRN Reason Stop Dose Admin Acetaminophen 650 mg 11/16/20 05:21 Acetaminophen Supp 650 Mg Supp.Rect DE Q6H PRN Pain, Mild (Pain Scale 1-3) Acetaminophen 650 mg 11/24/20 10:30 11/24/20 12:57 Acetaminophen 325 Mg Tablet PO 650 mg Q6H PRN Administration fever, pain 1-3 Benzocaine 1 lozenge 11/18/20 10:35 11/19/20 14:30 Throat Lozenge, Medicated Lozenge MUCOUS MEM 1 lozenge Q2H PRN Administration Sore Throat Bumetanide 1 mg 11/26/20 09:00 11/26/20 09:36 Bumetanide 1 Mg Tablet PO 1 mg DAILY [facility] Administration Protocol Heparin Sodium (Porcine) 2,600 unit 11/22/20 07:50 11/25/20 11:40 Heparin Sodium,Porcine 5,000 Unit/Ml Vial 40 unit/kg (2600 unit) 2,600 unit IVPUSH Administration PROTOCOL BOLUS PRN 40 unit/kg - Heparin Protocol Protocol Heparin Sodium (Porcine) 5,100 unit 11/22/20 07:50 Heparin Sodium,Porcine 5,000 Unit/Ml Vial 80 unit/kg (5100 unit) IVPUSH PROTOCOL BOLUS PRN 80 unit/kg - Heparin Protocol Protocol Heparin Sodium/Sodium Chloride 25,000 unit in 250 mls @ 0 mls/hr 11/22/20 08:00 11/26/20 01:56 IVCONT 20 units/kg/hr .Q0M [facility]OCK[facility] 12.78 mls/hr Administration Protocol Per Protocol Isosorbide Mononitrate 60 mg 11/25/20 09:00 11/26/20 09:36 Isosorbide Mononitrate 60 Mg Tab.Er.24h PO 60 mg DAILY [facility] Administration Protocol Levothyroxine Sodium 75 mcg 11/22/20 09:00 11/26/20 09:35 Levothyroxine Sodium 75 Mcg Tablet PO 75 mcg DAILY [facility] Administration Lorazepam 0.25 mg 11/22/20 17:15 11/26/20 05:07 Lorazepam 0.5 Mg Tablet PO 0.25 mg Q8H PRN Administration anxiety/restlessness Lorazepam 0.5 mg 11/25/20 10:30 Lorazepam 2 Mg/Ml Vial IVPUSH ONCE PRN anxiety Losartan Potassium 50 mg 11/25/20 21:00 11/26/20 09:37 Losartan Potassium 50 Mg Tablet PO 50 mg BID [facility] Administration Protocol Melatonin 6 mg 11/18/20 20:58 11/25/20 22:00 Melatonin 3 Mg Tablet PO 6 mg BEDTIME PRN Administration Insomnia Metoprolol Tartrate 100 mg 11/25/20 21:00 11/26/20 09:36 Metoprolol Tartrate 100 Mg Tablet PO 100 mg BID [facility] Administration Protocol Multi-Ingred Medicated Throat [place] 1 spray 11/17/20 11:07 11/17/20 15:29 Throat [place], Medicated 20 Ml Bottle MUCOUS MEM 1 spray Q2H PRN Administration Sore Throat Omeprazole 20 mg 11/22/20 09:00 11/26/20 09:37 Omeprazole 20 Mg Capsule.Dr PO 20 mg DAILY [facility] Administration Ondansetron HCl 4 mg 11/18/20 12:13 11/19/20 18:06 Ondansetron Hcl 4 Mg/2 Ml Vial IVPUSH 4 mg Q8H PRN Administration Nausea and Vomiting Sodium Bicarbonate 650 mg 11/25/20 09:00 11/26/20 09:35 Sodium Bicarbonate 650 Mg Tablet PO 650 mg DAILY [facility] Administration Sodium Biphosphate/Sodium Phosphate 133 ml 11/20/20 09:57 Sodium Phosphate,[place]-Dibasic 133 Ml Enema DE ONCE PRN Poor Colonoscopy Prep Results Sodium Biphosphate/Sodium Phosphate 133 ml 11/20/20 11:00 11/20/20 10:27 Sodium Phosphate,[place]-Dibasic 133 Ml Enema [place] 133 ml ONCE PRN Administration Poor Colonoscopy Prep Results Sodium Chloride 3 ml 11/16/20 08:00 07/20/21 09:35 0.9 % Sodium Chloride Flush 3 Ml Syringe IVFLUSH 3 ml QSHIFT [facility] Administration Warfarin Sodium 5 mg 11/25/20 18:00 11/25/20 18:01 Warfarin Sodium 5 Mg Tablet PO 5 mg DAILY@1800 [facility] Administration Labs CBC & Chem 7: 11/26/20 06:10 11/26/20 06:10 Labs: Laboratory Results - last 24 hr 11/25/20 11/25/20 11/26/20 17:38 22:46 06:10 MCV 97.1 MCH 31.2 MCHC 32.1 RDW 14.1 Plt Count 198 MPV 11.3 Absolute Nucleated RBC 0.000 Nucleated RBC % (auto) 0.0 PT INR PTT (Heparin Protocol) 73.0 D 68.4 Anion Gap Estim Creat Clear Calc Estimated GFR Random Glucose Calcium B-Natriuretic Peptide 11/26/20 11/26/20 11/26/20 06:10 06:10 06:10 MCV MCH MCHC RDW Plt Count MPV Absolute Nucleated RBC Nucleated RBC % (auto) PT 13.2 H Cancelled INR 1.2 H Cancelled PTT (Heparin Protocol) 61.4 Anion Gap 15 Estim Creat Clear Calc 32.8 Estimated GFR 41 Random Glucose 105 Calcium 8.1 L B-Natriuretic Peptide 11/26/20 06:10 MCV MCH MCHC RDW Plt Count MPV Absolute Nucleated RBC Nucleated RBC % (auto) PT INR PTT (Heparin Protocol) Anion Gap Estim Creat Clear Calc Estimated GFR Random Glucose Calcium B-Natriuretic Peptide 3508 H Microbiology Microbiology Results: Microbiology 11/20/20 Unknown Colon Direct Acid Fast Bacilli Smear - Final 11/16/20 03:12 Blood - Venous Blood Culture - Final No growth after 5 days. 11/16/20 03:10 Blood - Venous Blood Culture - Final No growth after 5 days. 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 fib back is NSR echo from 11/18 showing likely Takatsubo -continue metoprolol -d/c digoxin -Heparin drip for AC with coumadin subtherapeutic INR. Goal 2-3 Change heparin to lovenox tomorrow if renal function stable pt/inr daily Fluid overload likely Takatsubo CM. LV function should improve of stress induced -monitor fluid status closely -recommend to keep legs elevated, will add compression stockings -follow I&Os -cardiology following -Will need evaluation for obstructive CAD prior to any planned surgery -Bumex daily -1.5 fluid restriction KATHLEEN. Creatinine trending down. Lasix held yesterday and Scr trending down to 1.63 -trend BMP -hold PATI-i -nephrology following HTN Bp still elevated. on multiple meds at home -- all were on hold for SBO and was treated with IV meds -continue metoprolol for A. Fib -started on imdur 11/23 -nephro rec starting losartan due to proteinuria Metabolic acidosis in setting of kathleen Improving -bicarb po, decrease to once daily given fluid overload -nephrology following -follow BMP NSTEMI likely type 2 r/t afib rvr, and likely Takatsubo CM trops flat repeat limited echo with reduced EF 25-30% as well as thrombus in left ventricle -cardiology following -on heparin for above afib Aspiration Pneumonia Not requiring supplemental o2 -s/p 7 days of zosyn Hypernatremia. -resolved hypothyroidism -continue synthroid DVT prophylaxis: heparin, warfarin Code status: Full code - poor prognosis, will need goals of care discussion Attending Dr. Cordoba Quality Stroke Does the patient have a stroke diagnosis?: No VTE Prior VTE?: No VTE Risk Level:: Medical - moderate - high VTE Device Contraindication: N/A - Device Ordered VTE Drug Contraindication: N/A - Med Ordered
[2020-11-26] MEDS: Warfarin Sodium 5 MG TABLET PO (17:01)
[2020-11-27] VITALS (9 sets, daily range): BP systolic 130–160; BP diastolic 60–85; PULSE 60–89; RESP 16–19; TEMP 36.2–37.2; O2SAT 92–97
[2020-11-27] MEDS: LORazepam 0.5 MG TABLET 0.25 MG PO ×3 (03:40→18:12)
[2020-11-27 06:26] LABS: INTERNATIONAL NORM RATIO 1.4 (0.9-1.1); Prothrombin Time 16.1 SEC (9.9-13.0)
[2020-11-27 06:28] LABS: Hematocrit 34.5 % (42-52); Hemoglobin 11.1 g/dl (14.0-18.0); Mean Corpuscular HGB Conc 32.2 g/dl (31.0-36.0); Mean Corpuscular Hemoglobin 30.8 pg (27.0-33.0); Mean Corpuscular Volume 95.8 fL (80-98); Mean Platelet Volume 11.1 fL (9.4-12.4); Platelet Count 168 X10*3/uL (160-400); Red Cell Distribution Width 14.3 % (11.0-16.0); White Blood Count 13.1 X10*3/uL (4.8-10.8)
[2020-11-27 06:29] LABS: PTT Heparin Drip 77.7 SEC (53-77.9)
[2020-11-27 07:25] LABS: Anion Gap 17 (12-20); Blood Urea Nitrogen 36 mg/dL (9-16); Calcium 8.1 mg/dL (8.4-10.2); Carbon Dioxide 19 mmol/L (22-29); Chloride 111 mmol/L (96-108); Estimated Glomerular Filt Rate 40; Glucose Random 112 mg/dL (60-115); Potassium 3.6 mmol/L (3.3-5.1); Sodium 143 mmol/L (135-145)
[2020-11-27] MEDS: 0.9 % Sodium Chloride Flush 3 ML SYRINGE IVFLUSH ×2 (08:21→17:01)
[2020-11-27] MEDS: Sodium Bicarbonate 650 MG TABLET PO (08:22)
[2020-11-27] MEDS: Bumetanide 1 MG TABLET PO (08:22)
[2020-11-27] MEDS: Levothyroxine Sodium 75 MCG TABLET PO (08:22)
[2020-11-27] MEDS: Omeprazole 20 MG CAPSULE.DR PO (08:22)
[2020-11-27] MEDS: Isosorbide Mononitrate 60 MG TAB.ER.24H PO (08:22)
[2020-11-27] MEDS: Losartan Potassium 50 MG TABLET PO ×2 (08:22→20:31)
[2020-11-27] MEDS: Metoprolol Tartrate 100 MG TABLET PO ×2 (08:22→20:30)
--- NOTE | 2020-11-27 09:54 | P.PNCA_ITS ---
Subjective Subjective Date of Service: 11/27/20 <ANDRE Granados - Last Filed: 11/27/20 12:17> 11/27/20 <Munir Guillory MD - Last Filed: 11/27/20 13:49> Principal diagnosis: CMP, elevated Trop, elevated BNP, LV Thrombus, PAF, SBO/ mass <NEVAEH GranadosC - Last Filed: 11/27/20 12:17> Interval history: Cardiology follow up for CMP, fluid overload, LV thromus, PAF. Seen at 0820. Today he reports that his breathing is better that yesterday. He did not sleep well due to feeling restless. He is wanting to go home. No report of chest pains, palpitation, dizziness, PND, orthopnea. He still has lower leg swelling. Has been using urinal. Reports he is urinating more frequently with lesser volumes. No abnormal discomfort or nausea. Daughter present. <ANDRE Granados - Last Filed: 11/27/20 12:17> Review of Systems Review of Systems as above <ANDRE Granados - Last Filed: 11/27/20 12:17> Yes all other systems are reviewed and are negative <ANDRE Granados - Last Filed: 11/27/20 12:17> Physical Exam Vital Signs: Last Vital Signs Temp 97.2 F 11/27/20 07:20 Pulse 87 11/27/20 08:22 Resp 16 11/27/20 07:20 BP 132/60 11/27/20 08:22 Pulse Ox 95 11/27/20 07:20 Body Mass Index 22.0 <ANDRE Granados - Last Filed: 11/27/20 12:17> Const General: cooperative, no acute distress, alert and awake <ANDRE Granados - Last Filed: 11/27/20 12:17> Orientation/consciousness: patient oriented x3 <ANDRE Granados - Last Filed: 11/27/20 12:17> Neck Neck: Yes normal visual inspection <ANDRE Granados - Last Filed: 11/27/20 12:17> Resp Effort & Inspection: normal respiratory effort, able to speak in complete sentences and not labored <Rajani MantillaRADHA-C - Last Filed: 11/27/20 12:17> Auscultation: clear to auscultation bilaterally, no rales, no rhonchi and no wheezes <Rajani Mantilla [employer] WORKER-C - Last Filed: 11/27/20 12:17> Cardio Other: mild JVD elevation, less than yesterday <Rajani MantillaRADHAC - Last Filed: 11/27/20 12:17> Jugular venous distension: JVD present <Rajanitravis Mantilla [employer] WORKER-C - Last Filed: 11/27/20 12:17> Rate: regular rate <Rajani MantillaRADHA-C - Last Filed: 11/27/20 12:17> Rhythm: regular rhythm <Rajani Mantilla [employer] WORKER-C - Last Filed: 11/27/20 12:17> Heart sounds: S1 normal heart sound present and S2 normal heart sound present <Rajani MantillaRADHA-C - Last Filed: 11/27/20 12:17> Peripheral pulses: Peripheral pulses 2+ throughout <Rajani Mantilla [employer]AY[employer] WORKER-C - Last Filed: 11/27/20 12:17> GI Other: rounded, soft, nontender <Rajani MantillaRADHA-C - Last Filed: 11/27/20 12:17> Neuro General: patient oriented x3 <Rajani MantillaRADHA-C - Last Filed: 11/27/20 12:17> Extrem Other: soft pitting edema to lower legs <Rajani MantillaRADHAC - Last Filed: 11/27/20 12:17> Results Labs and Meds Result diagrams: : 11/27/20 06:11 11/27/20 06:11 <Rajani MantillaRADHA-C - Last Filed: 11/27/20 12:17> Lab results: Laboratory Results - last 24 hr 11/27/20 11/27/20 11/27/20 06:11 06:11 06:11 WBC 13.1 H RBC 3.60 L Hgb 11.1 L Hct 34.5 L MCV 95.8 MCH 30.8 MCHC 32.2 RDW 14.3 Plt Count 168 MPV 11.1 Absolute Nucleated RBC 0.000 Nucleated RBC % (auto) 0.0 PT 16.1 H D INR 1.4 H PTT (Heparin Protocol) 77.7 D Sodium 143 Potassium 3.6 Chloride 111 H Carbon Dioxide 19 L Anion Gap 17 BUN 36 H Creatinine 1.66 H Estim Creat Clear Calc 32.0 Estimated GFR 40 Random Glucose 112 Calcium 8.1 L 11/27/20 06:11 WBC RBC Hgb Hct MCV MCH MCHC RDW Plt Count MPV Absolute Nucleated RBC Nucleated RBC % (auto) PT Cancelled INR Cancelled PTT (Heparin Protocol) Sodium Potassium Chloride Carbon Dioxide Anion Gap BUN Creatinine Estim Creat Clear Calc Estimated GFR Random Glucose Calcium <NEVAEH GranadosC - Last Filed: 11/27/20 12:17> Progress Note: A&P Assessment and plan (1) Cardiomyopathy: Status: Acute <ANDRE Granados - Last Filed: 11/27/20 12:17> Assessment and Plan: Admit with SBO treated conservatively, colon mass which has biopsy pending. Initial EKG had T wave inversions. Echo 11/18/20 with EF 55-60%, apex dyskinetic, severe pulm HTN . 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 Then had new onset afib RVR, elevated troponins. 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 Still likely has underlying CAD. He is being managed medically at present with Metoprolol and Losartan. If it is stress-induced cardiomyopathy he should result in significant improvement LV systolic function in 10-14 day. He will need ischemic eval going forward. If surgery is indicated, then stress test will need to be completed prior to surgery. Continue current Metoprolol and Losartan. We will follow along. <NEVAEH GranadosC - Last Filed: 11/27/20 12:17> (2) Acute systolic heart failure: Status: Acute <ANDRE Granados - Last Filed: 11/27/20 12:17> Assessment and Plan: Evidence of fluid overload this admit with sob, JVD, edema. BNP elevated to over 3000. Fluid balance is +11 liters. He is being followed by nephrology as well and was started on PO Bumex yesterday. Continue with strict I+O monitoring. Close monitoring of electrolyte and kidney function. Fluid restriction as recommended by nephrology. Trend BNP. <ANDRE Granados - Last Filed: 11/27/20 12:17> Patient seen and examined. Case discussed with Rajani. Patient still appears to be short of breath and fluid overloaded. Will continue and switch Bumex to IV Bumex 1 mg b.i.d.. Strict intake and output chart needs to be pursued. Continue to trend BMP and BNP. Not quite ready for discharge as yet from cardiac perspective. Continue neurohormonal modulation with losartan and metoprolol therapy. Will follow with the patient. Will eventually require ischemic workup <Munir Guillory MD - Last Filed: 11/27/20 13:49> (3) Paroxysmal atrial fibrillation: Status: Acute <ANDRE Granados - Last Filed: 11/27/20 12:17> Assessment and Plan: New finding this admit. Initially EKG had shows SR with freq PACs. Tele / repeat EKG does confirm afib. Tele today shows SR, freq PACs, occ PVCs rates 80-90s. Probable episode of PAF while walking yesterday. No report of palpitations. On Metoprolol for rate control. CHADSVASc score of 4. Currently on Heparin for anticoagulation and has been started on coumadin. INR goal 2-3. INR today 1.4. Plan to stop heparin drip when INR therapeutic. Diagnosis of afib reviewed with him. Ongoing tele monitoring <ANDRE Granados - Last Filed: 11/27/20 12:17> Paroxysmal atrial fibrillation currently suppressed. Continue metoprolol therapy. Continue IV heparin. Continue warfarin therapy with target INR between 2 and 3. <Munir Guillory MD - Last Filed: 11/27/20 13:49> (4) Apical mural thrombus: Status: Acute <ANDRE Granados - Last Filed: 11/27/20 12:17> Assessment and Plan: Noted on limited echo 11/22/20. On Heparin drip per protocol and now bridging for coumadin. Use of a NOAC is not indicated for tx of apical thrombus <ANDRE Granados - Last Filed: 11/27/20 12:17> As above continue IV heparin and switch to oral warfarin therapy with target INR between 2 and 3. Onset questions at daughter had regarding normal oral anticoagulant agent and/or antiplatelet therapy as the replacement. Will continue to follow with the patient. <Munir Guillory MD - Last Filed: 11/27/20 13:49> (5) Elevated troponin: Status: Acute <ANDRE Granados - Last Filed: 11/27/20 12:17> Assessment and Plan: Troponin initially normal this admit, then julissa to 862 on 11/22. No reports of chest pains. He did have afib RVR. Echo with findings consistent with Takotsubo CMP. Elevated troponin is likely related to Takotsubo CMP however ischemia will need to be ruled out. Has completed over 48 hrs of Heparin drip. On Metoprolol, Losartan as above. Continue imdur. Eventual ischemic eval. <ANDRE Granados - Last Filed: 11/27/20 12:17> (6) Elevated brain natriuretic peptide (BNP) level: Status: Acute <ANDRE Granados - Last Filed: 11/27/20 12:17> (7) Essential hypertension: Status: Acute <ANDRE Granados - Last Filed: 11/27/20 12:17> Assessment and Plan: Controlled at present. Tolerating metoprolol and Losartan <ANDRE Granados - Last Filed: 11/27/20 12:17> Fall Risk Details Current Medications: Current Medications Generic Name Dose Route Start Last Admin Trade Name Freq PRN Reason Stop Dose Admin Acetaminophen 650 mg 11/16/20 05:21 Acetaminophen Supp [address] Q6H PRN Pain, Mild (Pain Scale 1-3) Acetaminophen 650 mg 11/24/20 10:30 11/24/20 12:57 Acetaminophen 325 Mg Tablet PO 650 mg Q6H PRN Administration fever, pain 1-3 Benzocaine 1 lozenge 11/18/20 10:35 11/19/20 14:30 Throat Lozenge, Medicated Lozenge MUCOUS MEM 1 lozenge Q2H PRN Administration Sore Throat Bumetanide 1 mg 11/26/20 09:00 11/27/20 08:22 Bumetanide 1 Mg Tablet PO 1 mg DAILY ROCKY Administration Protocol Heparin Sodium (Porcine) 2,600 unit 11/22/20 07:50 11/25/20 11:40 Heparin Sodium,Porcine 5,000 Unit/Ml Vial 40 unit/kg (2600 unit) 2,600 unit IVPUSH Administration PROTOCOL BOLUS PRN 40 unit/kg - Heparin Protocol Protocol Heparin Sodium (Porcine) 5,100 unit 11/22/20 07:50 Heparin Sodium,Porcine 5,000 Unit/Ml Vial 80 unit/kg (5100 unit) IVPUSH PROTOCOL BOLUS PRN 80 unit/kg - Heparin Protocol Protocol Heparin Sodium/Sodium Chloride 25,000 unit in 250 mls @ 0 mls/hr 11/22/20 08:00 11/26/20 22:59 IVCONT 20 units/kg/hr .Q0M ROCKY 12.78 mls/hr Administration Protocol Per Protocol Isosorbide Mononitrate 60 mg 11/25/20 09:00 11/27/20 08:22 Isosorbide Mononitrate 60 Mg Tab.Er.24h PO 60 mg DAILY ROCKY Administration Protocol Levothyroxine Sodium 75 mcg 11/22/20 09:00 11/27/20 08:22 Levothyroxine Sodium 75 Mcg Tablet PO 75 mcg DAILY ROCKY Administration Lorazepam 0.5 mg 11/25/20 10:30 Lorazepam 2 Mg/Ml Vial IVPUSH ONCE PRN anxiety Lorazepam 0.25 mg 11/26/20 15:29 11/27/20 08:23 Lorazepam 0.5 Mg Tablet PO 0.25 mg Q4H PRN Administration anxiety/restlessness Losartan Potassium 50 mg 11/25/20 21:00 11/27/20 08:22 Losartan Potassium 50 Mg Tablet PO 50 mg BID ROCKY Administration Protocol Melatonin 6 mg 11/18/20 20:58 11/25/20 22:00 Melatonin 3 Mg Tablet PO 6 mg BEDTIME PRN Administration Insomnia Metoprolol Tartrate 100 mg 11/25/20 21:00 11/27/20 08:22 Metoprolol Tartrate 100 Mg Tablet PO 100 mg BID ROCKY Administration Protocol Multi-Ingred Medicated Throat [place] 1 spray 11/17/20 11:07 11/17/20 15:29 Throat [place], Medicated 20 Ml Bottle MUCOUS MEM 1 spray Q2H PRN Administration Sore Throat Omeprazole 20 mg 11/22/20 09:00 11/27/20 08:22 Omeprazole 20 Mg Capsule.Dr PO 20 mg DAILY ROCKY Administration Ondansetron HCl 4 mg 11/18/20 12:13 11/19/20 18:06 Ondansetron Hcl 4 Mg/2 Ml Vial IVPUSH 4 mg Q8H PRN Administration Nausea and Vomiting Sodium Bicarbonate 650 mg 11/25/20 09:00 11/27/20 08:22 Sodium Bicarbonate 650 Mg Tablet PO 650 mg DAILY ROCKY Administration Sodium Biphosphate/Sodium Phosphate 133 ml 11/20/20 09:57 Sodium Phosphate,[place]-Dibasic [address] ONCE PRN Poor Colonoscopy Prep Results Sodium Biphosphate/Sodium Phosphate 133 ml 11/20/20 11:00 11/20/20 10:27 Sodium Phosphate,[place]-Dibasic [address] 133 ml ONCE PRN Administration Poor Colonoscopy Prep Results Sodium Chloride 3 ml 11/16/20 08:00 11/27/20 08:21 0.9 % Sodium Chloride Flush 3 Ml Syringe IVFLUSH 3 ml QSHIFT ROCKY Administration Warfarin Sodium 5 mg 11/25/20 18:00 11/26/20 17:01 Warfarin Sodium 5 Mg Tablet PO 5 mg DAILY@1800 ROCKY Administration <ANDRE Granados - Last Filed: 11/27/20 12:17> Time Spent With Patient Time: Total time spent is greater than 50% in coordination of care (as documented) at patient's floor/unit and/or counseling patient: <ANDRE Granados - Last Filed: 11/27/20 12:17> Time with patient: 15 - 24 minutes <ANDRE Granados - Last Filed: 11/27/20 12:17> Progress Note: Quality Stroke Does the patient have a stroke diagnosis?: No <ANDRE Granados - Last Filed: 11/27/20 12:17> Procedures Date of Service Date of Service: 11/27/20 <ANDRE Granados - Last Filed: 11/27/20 12:17>
--- NOTE | 2020-11-27 10:19 | MHC.CM.PN ---
per rounds likely dc tomorrow pt will be going ho me on lovenox will need a vna
--- NOTE | 2020-11-27 13:02 | P.PNIM_ITS ---
Subjective Subjective Date of Service: 11/27/20 Interval History: Follow up SBO, HFrEF, CMP Feeling better but weak oob to chair Physical Exam Vital Signs: Vital Signs: Last Vital Signs Temp 97.5 F 11/27/20 11:34 Pulse 71 11/27/20 11:34 Resp 18 11/27/20 11:34 BP 130/60 11/27/20 11:34 Pulse Ox 92 11/27/20 11:34 Body Mass Index 22.0 Appearing in no acute distress lung sounds are clear to auscultation heart regular rate rhythm, clear S1, S2 positive bowel sounds, abdomen is soft, nontender neuro patient is alert x3, no focal deficits Objective Data Current Medications Generic Name Dose Route Start Last Admin Trade Name Freq PRN Reason Stop Dose Admin Acetaminophen 650 mg 11/16/20 05:21 Acetaminophen Supp 650 Mg Supp.Rect [place] Q6H PRN Pain, Mild (Pain Scale 1-3) Acetaminophen 650 mg 11/24/20 10:30 11/24/20 12:57 Acetaminophen 325 Mg Tablet PO 650 mg Q6H PRN Administration fever, pain 1-3 Benzocaine 1 lozenge 11/18/20 10:35 11/19/20 14:30 Throat Lozenge, Medicated Lozenge MUCOUS MEM 1 lozenge Q2H PRN Administration Sore Throat Bumetanide 1 mg 11/26/20 09:00 11/27/20 08:22 Bumetanide 1 Mg Tablet PO 1 mg DAILY ROCKY Administration Protocol Bumetanide 0.5 mg 11/27/20 21:00 Bumetanide 1 Mg/4 Ml Vial IVPUSH BID ROCKY Protocol Heparin Sodium (Porcine) 2,600 unit 11/22/20 07:50 11/25/20 11:40 Heparin Sodium,Porcine 5,000 Unit/Ml Vial 40 unit/kg (2600 unit) 2,600 unit IVPUSH Administration PROTOCOL BOLUS PRN 40 unit/kg - Heparin Protocol Protocol Heparin Sodium (Porcine) 5,100 unit 11/22/20 07:50 Heparin Sodium,Porcine 5,000 Unit/Ml Vial 80 unit/kg (5100 unit) IVPUSH PROTOCOL BOLUS PRN 80 unit/kg - Heparin Protocol Protocol Heparin Sodium/Sodium Chloride 25,000 unit in 250 mls @ 0 mls/hr 11/22/20 08:00 11/26/20 22:59 IVCONT 20 units/kg/hr .Q0M ROCKY 12.78 mls/hr Administration Protocol Per Protocol Isosorbide Mononitrate 60 mg 11/25/20 09:00 11/27/20 08:22 Isosorbide Mononitrate 60 Mg Tab.Er.24h PO 60 mg DAILY ROCKY Administration Protocol Levothyroxine Sodium 75 mcg 11/22/20 09:00 11/27/20 08:22 Levothyroxine Sodium 75 Mcg Tablet PO 75 mcg DAILY ROCKY Administration Lorazepam 0.5 mg 11/25/20 10:30 Lorazepam 2 Mg/Ml Vial IVPUSH ONCE PRN anxiety Lorazepam 0.25 mg 11/26/20 15:29 11/27/20 08:23 Lorazepam 0.5 Mg Tablet PO 0.25 mg Q4H PRN Administration anxiety/restlessness Losartan Potassium 50 mg 11/25/20 21:00 11/27/20 08:22 Losartan Potassium 50 Mg Tablet PO 50 mg BID ROCKY Administration Protocol Melatonin 6 mg 11/18/20 20:58 11/25/20 22:00 Melatonin 3 Mg Tablet PO 6 mg BEDTIME PRN Administration Insomnia Metoprolol Tartrate 100 mg 11/25/20 21:00 11/27/20 08:22 Metoprolol Tartrate 100 Mg Tablet PO 100 mg BID [facility] Administration Protocol Multi-Ingred Medicated Throat [place] 1 spray 11/17/20 11:07 11/17/20 15:29 Throat [place], Medicated 20 Ml Bottle MUCOUS MEM 1 spray Q2H PRN Administration Sore Throat Omeprazole 20 mg 11/22/20 09:00 11/27/20 08:22 Omeprazole 20 Mg Capsule.Dr PO 20 mg DAILY ROCKY Administration Ondansetron HCl 4 mg 11/18/20 12:13 11/19/20 18:06 Ondansetron Hcl 4 Mg/2 Ml Vial IVPUSH 4 mg Q8H PRN Administration Nausea and Vomiting Sodium Bicarbonate 650 mg 11/25/20 09:00 11/27/20 08:22 Sodium Bicarbonate 650 Mg Tablet PO 650 mg DAILY ROCKY Administration Sodium Biphosphate/Sodium Phosphate 133 ml 11/20/20 09:57 Sodium Phosphate,[place]-Dibasic 133 Ml Enema [place] ONCE PRN Poor Colonoscopy Prep Results Sodium Biphosphate/Sodium Phosphate 133 ml 11/20/20 11:00 11/20/20 10:27 Sodium Phosphate,[place]-Dibasic 133 Ml Enema [place] 133 ml ONCE PRN Administration Poor Colonoscopy Prep Results Sodium Chloride 3 ml 11/16/20 08:00 11/27/20 08:21 0.9 % Sodium Chloride Flush 3 Ml Syringe IVFLUSH 3 ml QSHIFT ROCKY Administration Warfarin Sodium 5 mg 11/25/20 18:00 11/26/20 17:01 Warfarin Sodium 5 Mg Tablet PO 5 mg DAILY@1800 ROCKY Administration Labs CBC & Chem 7: 11/27/20 06:11 11/27/20 06:11 Labs: Laboratory Results - last 24 hr 11/27/20 11/27/20 11/27/20 06:11 06:11 06:11 MCV 95.8 MCH 30.8 MCHC 32.2 RDW 14.3 Plt Count 168 MPV 11.1 Absolute Nucleated RBC 0.000 Nucleated RBC % (auto) 0.0 PT 16.1 H D INR 1.4 H PTT (Heparin Protocol) 77.7 D Anion Gap 17 Estim Creat Clear Calc 32.0 Estimated GFR 40 Random Glucose 112 Calcium 8.1 L 11/27/20 06:11 MCV MCH MCHC RDW Plt Count MPV Absolute Nucleated RBC Nucleated RBC % (auto) PT Cancelled INR Cancelled PTT (Heparin Protocol) Anion Gap Estim Creat Clear Calc Estimated GFR Random Glucose Calcium Microbiology Microbiology Results: Microbiology 11/20/20 Unknown Colon Direct Acid Fast Bacilli Smear - Final 11/16/20 03:12 Blood - Venous Blood Culture - Final No growth after 5 days. 11/16/20 03:10 Blood - Venous Blood Culture - Final No growth after 5 days. 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 HFrEF. 11 liters positive likely Takatsubo CM. 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 fib/apical thrombus back is NSR echo from 11/18 showing likely Takatsubo -continue metoprolol -d/c digoxin -Heparin drip for AC with coumadin, change to lovenox for bridging subtherapeutic INR. Goal 2-3 Change heparin to lovenox pt/inr daily KATHLEEN. Creatinine trending down. Lasix held yesterday and Scr trending down to 1.63 -trend BMP -hold PATI-i -nephrology following HTN Bp still elevated. on multiple meds at home -- all were on hold for SBO and was treated with IV meds -continue metoprolol for A. Fib -started on imdur 11/23 -nephro rec starting losartan due to proteinuria Metabolic acidosis in setting of kathleen Improving -bicarb po, decrease to once daily given fluid overload -nephrology following -follow BMP NSTEMI likely type 2 r/t afib rvr, and likely Takatsubo CM trops flat repeat limited echo with reduced EF 25-30% as well as thrombus in left ventricle -cardiology following -on heparin for above afib Aspiration Pneumonia Not requiring supplemental o2 -s/p 7 days of zosyn Hypernatremia. -resolved hypothyroidism -continue synthroid DVT prophylaxis: Lovenox , warfarin Code status: Full code - DISPO home when medically stable with VNA and PT Quality Stroke Does the patient have a stroke diagnosis?: No VTE Prior VTE?: No VTE Risk Level:: Medical - moderate - high VTE Device Contraindication: N/A - Device Ordered VTE Drug Contraindication: N/A - Med Ordered
--- NOTE | 2020-11-27 13:02 | MHC.CM.PN ---
[facility] unable to provide pt with a daily vivit tills at referral to [facility] who has accepted pt
[2020-11-27 14:29] LABS: Hematocrit 33.6 % (42-52); Hemoglobin 10.8 g/dl (14.0-18.0); Mean Corpuscular HGB Conc 32.1 g/dl (31.0-36.0); Mean Corpuscular Hemoglobin 30.7 pg (27.0-33.0); Mean Corpuscular Volume 95.5 fL (80-98); Mean Platelet Volume 11.4 fL (9.4-12.4); Platelet Count 155 X10*3/uL (160-400); Red Blood Count 3.52 X10*6/uL (4.60-5.80); Red Cell Distribution Width 14.5 % (11.0-16.0); White Blood Count 12.5 X10*3/uL (4.8-10.8)
[2020-11-27 14:37] LABS: INTERNATIONAL NORM RATIO 1.6 (0.9-1.1); Prothrombin Time 18.9 SEC (9.9-13.0)
[2020-11-27 15:01] LABS: Partial Thromboplastin Time 71.6 SEC (24.1-38.0)
[2020-11-27] MEDS: Warfarin Sodium 5 MG TABLET PO (17:01)
[2020-11-27] MEDS: Bumetanide 1 MG/4 ML VIAL IVPUSH (17:01)
[2020-11-27] MEDS: Heparin Sodium,Porcine/1/2NS 25,000 UNIT/250 ML IV.SOLN 12.78 UNIT IVCONT (18:06)
--- NOTE | 2020-11-27 19:05 | PM.PNNEP ---
Subjective Subjective Date of Service: 11/27/20 Principal diagnosis: CMP, elevated Trop, elevated BNP, LV Thrombus, PAF, SBO/ mass Interval history: Follow up SBO, HFrEF, CMP Feeling better but weak oob to chair Continues to have edema Physical Exam Vital Signs: Vital Signs: Last Vital Signs Temp 97.8 F 11/27/20 15:08 Pulse 64 11/27/20 15:08 Resp 18 11/27/20 15:08 BP 148/78 H 11/27/20 15:08 Pulse Ox 97 11/27/20 15:08 Body Mass Index 22.0 Appearing in no acute distress lung sounds are clear to auscultation heart regular rate rhythm, clear S1, S2 positive bowel sounds, abdomen is soft, nontender neuro patient is alert x3, no focal deficits ++ edema Objective Data Labs CBC & Chem 7: 11/27/20 14:14 11/27/20 06:11 Labs: Laboratory Results - last 24 hr 11/27/20 11/27/20 11/27/20 06:11 06:11 06:11 WBC 13.1 H RBC 3.60 L Hgb 11.1 L Hct 34.5 L MCV 95.8 MCH 30.8 MCHC 32.2 RDW 14.3 Plt Count 168 MPV 11.1 Absolute Nucleated RBC 0.000 Nucleated RBC % (auto) 0.0 PT 16.1 H D INR 1.4 H APTT PTT (Heparin Protocol) 77.7 D Sodium 143 Potassium 3.6 Chloride 111 H Carbon Dioxide 19 L Anion Gap 17 BUN 36 H Creatinine 1.66 H Estim Creat Clear Calc 32.0 Estimated GFR 40 Random Glucose 112 Calcium 8.1 L 11/27/20 11/27/20 11/27/20 06:11 14:14 14:14 WBC 12.5 H RBC 3.52 L Hgb 10.8 L Hct 33.6 L MCV 95.5 MCH 30.7 MCHC 32.1 RDW 14.5 Plt Count 155 L MPV 11.4 Absolute Nucleated RBC 0.000 Nucleated RBC % (auto) 0.0 PT Cancelled 18.9 H INR Cancelled 1.6 H APTT 71.6 H* PTT (Heparin Protocol) Sodium Potassium Chloride Carbon Dioxide Anion Gap BUN Creatinine Estim Creat Clear Calc Estimated GFR Random Glucose Calcium Microbiology Microbiology Results: Microbiology 11/20/20 Unknown Colon Direct Acid Fast Bacilli Smear - Final 11/16/20 03:12 Blood - Venous Blood Culture - Final No growth after 5 days. 11/16/20 03:10 Blood - Venous Blood Culture - Final No growth after 5 days. Assessment & Plan Time Spent With Patient Time: KATHLEEN _ Better - Cr is stable A. fib RVR NSTEMI Fluid overload Partial SBO possibly secondary to inflammatory vs neoplastic process Metabolic acidosis Hypernatremai Suggest 1.5 L fluid restriction 2 G Na diet Leg elevation Continue sodium Bicarb -as ordered On Bumex 1 mg daily for edema F/u K and Divalents and replace Avoid nephrotoxinsTotal time spent is greater than 50% in coordination of care (as documented) at patient's floor/unit and/or counseling patient: Procedures Date of Service Date of Service: 11/27/20 Progress Note: Quality Stroke Does the patient have a stroke diagnosis?: No
[2020-11-27] MEDS: LORazepam 0.5 MG TABLET PO (22:11)
[2020-11-27] MEDS: Melatonin 3 MG TABLET 6 MG PO (22:11)
[2020-11-28] VITALS (7 sets, daily range): BP systolic 128–155; BP diastolic 65–87; PULSE 52–88; RESP 18–20; TEMP 36–37.2; O2SAT 92–97
[2020-11-28 07:06] LABS: INTERNATIONAL NORM RATIO 2.3 (0.9-1.1); Prothrombin Time 26.6 SEC (9.9-13.0)
[2020-11-28 07:09] LABS: PTT Heparin Drip 95.7 SEC (53-77.9)
[2020-11-28 07:25] LABS: Anion Gap 17 (12-20); Blood Urea Nitrogen 35 mg/dL (9-16); Carbon Dioxide 21 mmol/L (22-29); Chloride 110 mmol/L (96-108); Creatinine Clr Calc Pharmacy 33.9; Estimated Glomerular Filt Rate 43; Glucose Random 120 mg/dL (60-115); Potassium 3.5 mmol/L (3.3-5.1); Sodium 144 mmol/L (135-145)
[2020-11-28 07:28] LABS: Hematocrit 33.5 % (42-52); Mean Corpuscular HGB Conc 32.8 g/dl (31.0-36.0); Mean Corpuscular Hemoglobin 31.4 pg (27.0-33.0); Mean Corpuscular Volume 95.7 fL (80-98); Platelet Count 151 X10*3/uL (160-400); Red Cell Distribution Width 14.6 % (11.0-16.0); White Blood Count 13.3 X10*3/uL (4.8-10.8)
[2020-11-28 07:39] LABS: B Type Natriuretic Peptide 3472 pg/mL (<100)
--- NOTE | 2020-11-28 08:27 | P.PNCA_ITS ---
Subjective Subjective Date of Service: 11/28/20 <ANDRE Granados - Last Filed: 11/28/20 09:08> 11/28/20 <Munir Guillory MD - Last Filed: 11/28/20 11:38> Principal diagnosis: CMP, elevated Trop, elevated BNP, LV Thrombus, PAF, SBO/ mass <ANDRE Granados - Last Filed: 11/28/20 09:08> Interval history: Cardiology follow up for the above. Seen at 0815. Today he reports that he slept great. Breathing is comfortable. Had walked to the bathroom in room and tolerated it without reported sob. No chest discomfort or palpitation. No dizziness. Still has sgnificant leg edema. Eating breakfast. Reports getting b loated after eating. No abdominal pain, no nausea. <ANDRE Granados - Last Filed: 11/28/20 09:08> Review of Systems Review of Systems as above <ANDRE Granados - Last Filed: 11/28/20 09:08> Yes all other systems are reviewed and are negative <ANDRE Granados - Last Filed: 11/28/20 09:08> Physical Exam Vital Signs: Last Vital Signs Temp 98.0 F 11/28/20 07:13 Pulse 79 11/28/20 07:13 Resp 18 11/28/20 07:13 BP 155/87 H 11/28/20 07:13 Pulse Ox 95 11/28/20 07:13 Body Mass Index 22.0 <ANDRE Granados - Last Filed: 11/28/20 09:08> Const General: cooperative, no acute distress, alert and awake <ANDRE Granados - Last Filed: 11/28/20 09:08> Orientation/consciousness: patient oriented x3 <ANDRE Granados Last Filed: 11/28/20 09:08> Neck Neck: Yes normal visual inspection <ANDRE Granados - Last Filed: 11/28/20 09:08> Resp Effort & Inspection: normal respiratory effort, able to speak in complete sentences and not labored <ANDRE Granados - Last Filed: 11/28/20 09:08> Auscultation: clear to auscultation bilaterally, no crackles, no rales, no rhonchi and no wheezes <Rajani MantillaNEVAEHC - Last Filed: 11/28/20 09:08> Cardio Jugular venous distension: JVD present (sitting upright, unable to accurately assess for JVD) <Rajani RADHA MantillaC - Last Filed: 11/28/20 09:08> Rate: regular rate <[facility] AnnaleeRADHAC - Last Filed: 11/28/20 09:08> Rhythm: regular rhythm <[facility] RADHA MantillaC - Last Filed: 11/28/20 09:08> Heart sounds: S1 normal heart sound present and S2 normal heart sound present <Rajani RADHA MantillaC - Last Filed: 11/28/20 09:08> Peripheral pulses: Peripheral pulses 2+ throughout <Rajani RADHA MantillaC - Last Filed: 11/28/20 09:08> Neuro General: patient oriented x3 <Rajani RADHA MantillaC - Last Filed: 11/28/20 09:08> Extrem Other: soft pitting edema to lower legs and into posterior thighs <Rajani RADHA MantillaC - Last Filed: 11/28/20 09:08> Results Labs and Meds Result diagrams: : 11/28/20 06:06 11/28/20 06:06 <Rajani Harrington RADHA MantillaC - Last Filed: 11/28/20 09:08> Lab results: Laboratory Results - last 24 hr 11/27/20 11/27/20 11/28/20 14:14 14:14 06:06 WBC 12.5 H RBC 3.52 L Hgb 10.8 L Hct 33.6 L MCV 95.5 MCH 30.7 MCHC 32.1 RDW 14.5 Plt Count 155 L MPV 11.4 Absolute Nucleated RBC 0.000 Nucleated RBC % (auto) 0.0 PT 18.9 H 26.6 H D INR 1.6 H 2.3 H APTT 71.6 H* PTT (Heparin Protocol) 95.7 H D Sodium Potassium Chloride Carbon Dioxide Anion Gap BUN Creatinine Estim Creat Clear Calc Estimated GFR Random Glucose Calcium B-Natriuretic Peptide 11/28/20 11/28/20 11/28/20 06:06 06:06 06:06 WBC 13.3 H RBC 3.50 L Hgb 11.0 L Hct 33.5 L MCV 95.7 MCH 31.4 MCHC 32.8 RDW 14.6 Plt Count 151 L MPV 12.0 Absolute Nucleated RBC 0.000 Nucleated RBC % (auto) 0.0 PT Cancelled INR Cancelled APTT PTT (Heparin Protocol) Sodium Potassium Chloride Carbon Dioxide Anion Gap BUN Creatinine Estim Creat Clear Calc Estimated GFR Random Glucose Calcium B-Natriuretic Peptide 3472 H 11/28/20 11/28/20 06:06 06:06 WBC Cancelled RBC Cancelled Hgb Cancelled Hct Cancelled MCV Cancelled MCH Cancelled MCHC Cancelled RDW Cancelled Plt Count Cancelled MPV Cancelled Absolute Nucleated RBC Cancelled Nucleated RBC % (auto) Cancelled PT INR APTT PTT (Heparin Protocol) Sodium 144 Potassium 3.5 Chloride 110 H Carbon Dioxide 21 L Anion Gap 17 BUN 35 H Creatinine 1.57 H Estim Creat Clear Calc 33.9 Estimated GFR 43 Random Glucose 120 H Calcium 8.0 L B-Natriuretic Peptide <NEVAEH GranadosC - Last Filed: 11/28/20 09:08> Progress Note: A&P Assessment and plan (1) Acute systolic heart failure: Status: Acute <NEVAEH GranadosC - Last Filed: 11/28/20 09:08> Assessment and Plan: Acute systolic CHF. Clinical evidence of fluid overload this admit with sob, JVD, edema. BNP elevated to over 3000. Fluid balance is still +11 liters. He is being followed by nephrology as well and was started on PO Bumex which was then changed to IV yesterday. His Cr is down to 1.57, from 1.62. On fluid restriction. BNP remains 3472. Edema unchanged. Will increase his Bumex to 2mg IV BID. Continue with strict I+O monitoring. Close monitoring of electrolyte and kidney function. Fluid restriction. Trend BNP. <NEVAEH GranadosC - Last Filed: 11/28/20 09:08> Patient seen and examined and case discussed with Rajani Mantilla. Patient remained short of breath fluid overloaded. Diuresed yesterday with better urine output. Creatinine marginally improved however BNP still elevated. Patient gets short of breath with minimal exertion. Plan to intensify diuretic regimen to Bumex 2 mg b.i.d.. Strict intake and output chart needs to be pursued. Continue to trend BMP and BNP. Continue neurohormonal modulation. I would not think he is ready for discharge as yet as he would have repeat hospitalization related to heart failure <Munir Guillory MD - Last Filed: 11/28/20 11:38> (2) Cardiomyopathy: Status: Acute <ANDRE Granados - Last Filed: 11/28/20 09:08> Assessment and Plan: Limited echo 11/22/20 with EF 25-30%, LV thrombus, + regional WMA consistent with Bi V Takotsubo CMP. Still likely has underlying CAD. He is being managed medically at present with Metoprolol and Losartan. If it is stress- induced cardiomyopathy he should result in significant improvement LV systolic function in 10-14 day. He will need ischemic eval going forward. If surgery is indicated, then stress test will need to be completed prior to surgery. Continue current Metoprolol and Losartan, which he is tolerating. We will plan for limited echo to reassess EF in 2 weeks. Outpt stress test Vs cardiac cath. <ANDRE Granados - Last Filed: 11/28/20 09:08> Cardiomyopathy suspected to be due to stress-induced cardiomyopathy with acute medical illness, however significant coronary artery disease cannot be entirely ruled out. He does have will apical mural thrombus. Continue switch to warfarin with INR between 2 and 3. Continue neurohormonal modulation as above. Follow-up echocardiogram in 10-14 days after initial echo to assess for improvement in LV systolic function. Will eventually require ischemic workup as well. <Munir Guillory MD - Last Filed: 11/28/20 11:38> (3) Paroxysmal atrial fibrillation: Status: Acute <ANDRE Granados - Last Filed: 11/28/20 09:08> Assessment and Plan: New finding this admit. Tele showing SR, freq PACs, rates 60-90 today. No report of palpitations. On Metoprolol for rate control. CHADSVASc score of 4. On Coumadin for anticoagulatioin, INR goal 2-3. INR today 2.3. Heparin drip is now off. Diagnosis of afib previously reviewed with him. Ongoing tele monitoring while inpt <ANDRE Granados - Last Filed: 11/28/20 09:08> Paroxysmal atrial fibrillation, suppressed. Continue metoprolol therapy. Continue Coumadin with goal INR between 2 and 3. Will follow with the patient. <Munir Guillory MD - Last Filed: 11/28/20 11:38> (4) Apical mural thrombus: Status: Acute <ANRDE Granados - Last Filed: 11/28/20 09:08> Assessment and Plan: Noted on echo 11/22. He was on Heparin and has been transitioned to coumadin. <ANDRE Granados - Last Filed: 11/28/20 09:08> (5) Essential hypertension: Status: Acute <ANDRE Granados - Last Filed: 11/28/20 09:08> Assessment and Plan: Mildly elevated at this time. Continues on Imdur, Metoprolol, Losartan. Will be diuresing more aggressively as above. <ANDRE Granados - Last Filed: 11/28/20 09:08> Fall Risk Details Current Medications: Current Medications Generic Name Dose Route Start Last Admin Trade Name Freq PRN Reason Stop Dose Admin Acetaminophen 650 mg 11/24/20 10:30 11/24/20 12:57 Acetaminophen 325 Mg Tablet PO 650 mg Q6H PRN Administration fever, pain 1-3 Bumetanide 1 mg 11/27/20 18:00 11/27/20 17:01 Bumetanide 1 Mg/4 Ml Vial IVPUSH 1 mg BID@0800,1800 ROCKY Administration Protocol Isosorbide Mononitrate 60 mg 11/25/20 09:00 11/27/20 08:22 Isosorbide Mononitrate 60 Mg Tab.Er.24h PO 60 mg DAILY ROCKY Administration Protocol Levothyroxine Sodium 75 mcg 11/22/20 09:00 11/27/20 08:22 Levothyroxine Sodium 75 Mcg Tablet PO 75 mcg DAILY ROCKY Administration Lorazepam 0.25 mg 11/26/20 15:29 11/27/20 18:12 Lorazepam 0.5 Mg Tablet PO 0.25 mg Q4H PRN Administration anxiety/restlessness Lorazepam 0.5 mg 11/27/20 13:59 11/27/20 22:11 Lorazepam 0.5 Mg Tablet PO 0.5 mg BEDTIME PRN Administration Insomnia Losartan Potassium 50 mg 11/25/20 21:00 11/27/20 20:31 Losartan Potassium 50 Mg Tablet PO 50 mg BID ROCKY Administration Protocol Melatonin 6 mg 11/27/20 20:45 11/27/20 22:11 Melatonin 3 Mg Tablet PO 6 mg BEDTIME PRN Administration Insomnia Metoprolol Tartrate 100 mg 11/25/20 21:00 11/27/20 20:30 Metoprolol Tartrate 100 Mg Tablet PO 100 mg BID ROCKY Administration Protocol Omeprazole 20 mg 11/22/20 09:00 11/27/20 08:22 Omeprazole 20 Mg Capsule.Dr PO 20 mg DAILY ROCKY Administration Ondansetron HCl 4 mg 11/18/20 12:13 11/19/20 18:06 Ondansetron Hcl 4 Mg/2 Ml Vial IVPUSH 4 mg Q8H PRN Administration Nausea and Vomiting Sodium Bicarbonate 650 mg 11/25/20 09:00 11/27/20 08:22 Sodium Bicarbonate 650 Mg Tablet PO 650 mg DAILY ROCKY Administration Sodium Chloride 3 ml 11/16/20 08:00 11/27/20 23:11 0.9 % Sodium Chloride Flush 3 Ml Syringe IVFLUSH Not Given QSHIFT ROCKY Warfarin Sodium 5 mg 11/25/20 18:00 11/27/20 17:01 Warfarin Sodium 5 Mg Tablet PO 5 mg DAILY@1800 ROCKY Administration <ANDRE Granados - Last Filed: 11/28/20 09:08> Time Spent With Patient Time: Total time spent is greater than 50% in coordination of care (as documented) at patient's floor/unit and/or counseling patient: 22 <ANDRE Granados - Last Filed: 11/28/20 09:08> Time with patient: 15 - 24 minutes <ANDRE Granados - Last Filed: 11/28/20 09:08> Progress Note: Quality Stroke Does the patient have a stroke diagnosis?: No <ANDRE Granados - Last Filed: 11/28/20 09:08> Procedures Date of Service Date of Service: 11/28/20 <ANDRE Granados - Last Filed: 11/28/20 09:08>
[2020-11-28] MEDS: 0.9 % Sodium Chloride Flush 3 ML SYRINGE IVFLUSH ×3 (08:45→21:07)
[2020-11-28] MEDS: Bumetanide 1 MG/4 ML VIAL IVPUSH ×2 (08:45→09:55)
[2020-11-28] MEDS: Sodium Bicarbonate 650 MG TABLET PO (08:45)
[2020-11-28] MEDS: Metoprolol Tartrate 100 MG TABLET PO ×2 (08:46→21:06)
[2020-11-28] MEDS: Omeprazole 20 MG CAPSULE.DR PO (08:46)
[2020-11-28] MEDS: Levothyroxine Sodium 75 MCG TABLET PO (08:46)
[2020-11-28] MEDS: Isosorbide Mononitrate 60 MG TAB.ER.24H PO (08:46)
[2020-11-28] MEDS: Losartan Potassium 50 MG TABLET PO ×2 (08:46→21:07)
--- NOTE | 2020-11-28 10:02 | P.PNIM_ITS ---
Subjective Subjective Date of Service: 11/28/20 Interval History: seen and examined this AM feeling better asking to go home ROS General - no fevers or chills Cardiovascular - no chest pain Respiratory - no shortness of breath or cough Abdominal- no abdominal pain, nausea, vomiting, diarrhea Physical Exam Vital Signs: Vital Signs: Last Vital Signs Temp 98.0 F 11/28/20 07:13 Pulse 79 11/28/20 08:46 Resp 18 11/28/20 07:13 BP 155/87 H 11/28/20 08:46 Pulse Ox 95 11/28/20 07:13 Body Mass Index 22.0 Const: Other: General - no acute distress, appears comfortable Cardiovascular - RRR Lungs - dim, R base > L; Abdomen - soft, nontender, no rebound or guarding Extremities - significant edema b/l Neuro - awake and alert, no focal deficits Objective Data Current Medications Generic Name Dose Route Start Last Admin Trade Name Freq PRN Reason Stop Dose Admin Acetaminophen 650 mg 11/24/20 10:30 11/24/20 12:57 Acetaminophen 325 Mg Tablet PO 650 mg Q6H PRN Administration fever, pain 1-3 Bumetanide 2 mg 11/28/20 16:00 Bumetanide 1 Mg/4 Ml Vial IVPUSH BID [facility] Protocol Isosorbide Mononitrate 60 mg 11/25/20 09:00 11/28/20 08:46 Isosorbide Mononitrate 60 Mg Tab.Er.24h PO 60 mg DAILY ROCKY Administration Protocol Levothyroxine Sodium 75 mcg 11/22/20 09:00 11/28/20 08:46 Levothyroxine Sodium 75 Mcg Tablet PO 75 mcg DAILY ROCKY Administration Lorazepam 0.25 mg 11/26/20 15:29 11/27/20 18:12 Lorazepam 0.5 Mg Tablet PO 0.25 mg Q4H PRN Administration anxiety/restlessness Lorazepam 0.5 mg 11/27/20 13:59 11/27/20 22:11 Lorazepam 0.5 Mg Tablet PO 0.5 mg BEDTIME PRN Administration Insomnia Losartan Potassium 50 mg 11/25/20 21:00 11/28/20 08:46 Losartan Potassium 50 Mg Tablet PO 50 mg BID ROCKY Administration Protocol Melatonin 6 mg 11/27/20 20:45 11/27/20 22:11 Melatonin 3 Mg Tablet PO 6 mg BEDTIME PRN Administration Insomnia Metoprolol Tartrate 100 mg 11/25/20 21:00 11/28/20 08:46 Metoprolol Tartrate 100 Mg Tablet PO 100 mg BID [facility] Administration Protocol Omeprazole 20 mg 11/22/20 09:00 11/28/20 08:46 Omeprazole 20 Mg Capsule.Dr PO 20 mg DAILY ROCKY Administration Ondansetron HCl 4 mg 11/18/20 12:13 11/19/20 18:06 Ondansetron Hcl 4 Mg/2 Ml Vial IVPUSH 4 mg Q8H PRN Administration Nausea and Vomiting Sodium Bicarbonate 650 mg 11/25/20 09:00 11/28/20 08:45 Sodium Bicarbonate 650 Mg Tablet PO 650 mg DAILY ROCKY Administration Sodium Chloride 3 ml 11/16/20 08:00 11/28/20 08:45 0.9 % Sodium Chloride Flush 3 Ml Syringe IVFLUSH 3 ml QSHIFT ROCKY Administration Warfarin Sodium 5 mg 11/25/20 18:00 11/27/20 17:01 Warfarin Sodium 5 Mg Tablet PO 5 mg DAILY@1800 ROCKY Administration Labs CBC & Chem 7: 11/28/20 06:06 11/28/20 06:06 Labs: Laboratory Results - last 24 hr 11/27/20 11/27/20 11/28/20 14:14 14:14 06:06 WBC 12.5 H RBC 3.52 L Hgb 10.8 L Hct 33.6 L MCV 95.5 MCH 30.7 MCHC 32.1 RDW 14.5 Plt Count 155 L MPV 11.4 Absolute Nucleated RBC 0.000 Nucleated RBC % (auto) 0.0 PT 18.9 H 26.6 H D INR 1.6 H 2.3 H APTT 71.6 H* PTT (Heparin Protocol) 95.7 H D Sodium Potassium Chloride Carbon Dioxide Anion Gap BUN Creatinine Estim Creat Clear Calc Estimated GFR Random Glucose Calcium B-Natriuretic Peptide 11/28/20 11/28/20 11/28/20 06:06 06:06 06:06 WBC 13.3 H RBC 3.50 L Hgb 11.0 L Hct 33.5 L MCV 95.7 MCH 31.4 MCHC 32.8 RDW 14.6 Plt Count 151 L MPV 12.0 Absolute Nucleated RBC 0.000 Nucleated RBC % (auto) 0.0 PT Cancelled INR Cancelled APTT PTT (Heparin Protocol) Sodium Potassium Chloride Carbon Dioxide Anion Gap BUN Creatinine Estim Creat Clear Calc Estimated GFR Random Glucose Calcium B-Natriuretic Peptide 3472 H 11/28/20 11/28/20 06:06 06:06 WBC Cancelled RBC Cancelled Hgb Cancelled Hct Cancelled MCV Cancelled MCH Cancelled MCHC Cancelled RDW Cancelled Plt Count Cancelled MPV Cancelled Absolute Nucleated RBC Cancelled Nucleated RBC % (auto) Cancelled PT INR APTT PTT (Heparin Protocol) Sodium 144 Potassium 3.5 Chloride 110 H Carbon Dioxide 21 L Anion Gap 17 BUN 35 H Creatinine 1.57 H Estim Creat Clear Calc 33.9 Estimated GFR 43 Random Glucose 120 H Calcium 8.0 L B-Natriuretic Peptide Quality Stroke Does the patient have a stroke diagnosis?: No VTE Prior VTE?: No VTE Risk Level:: Medical - moderate - high VTE Device Contraindication: N/A - Device Ordered VTE Drug Contraindication: N/A - Med Ordered Assessment and Plan (1) Cardiomyopathy: Status: Acute Assessment and Plan: 80-year-old male with a past medical history of hypertension, hypothyroidism, hiatal hernia, 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
[2020-11-28] MEDS: Bumetanide 1 MG/4 ML VIAL 2 MG IVPUSH (16:47)
[2020-11-28] MEDS: Warfarin Sodium 5 MG TABLET PO (16:48)
--- NOTE | 2020-11-28 18:50 | PC.NURSE ---
Patient OOB to recliner for majority of the day. Blanchable redness to buttocks, barrier cream, repo. No issues this shift.
[2020-11-28] MEDS: LORazepam 0.5 MG TABLET 0.25 MG PO (19:07)
--- NOTE | 2020-11-28 21:04 | PM.PNNEP ---
Subjective Subjective Date of Service: 11/28/20 Principal diagnosis: CMP, elevated Trop, elevated BNP, LV Thrombus, PAF, SBO/ mass Interval history: seen and examined this AM feeling better asking to go home Edema + ROS General - no fevers or chills Cardiovascular - no chest pain Respiratory - no shortness of breath or cough Abdominal- no abdominal pain, nausea, vomiting, diarrhea Physical Exam Vital Signs: Vital Signs: Last Vital Signs Temp 98.9 F 11/28/20 19:18 Pulse 76 11/28/20 19:18 Resp 19 11/28/20 19:18 BP 130/65 11/28/20 19:18 Pulse Ox 96 11/28/20 19:18 Body Mass Index 22.0 Objective Data Labs CBC & Chem 7: 11/28/20 06:06 11/28/20 06:06 Labs: Laboratory Results - last 24 hr 11/28/20 11/28/20 11/28/20 06:06 06:06 06:06 WBC 13.3 H RBC 3.50 L Hgb 11.0 L Hct 33.5 L MCV 95.7 MCH 31.4 MCHC 32.8 RDW 14.6 Plt Count 151 L MPV 12.0 Absolute Nucleated RBC 0.000 Nucleated RBC % (auto) 0.0 PT 26.6 H D Cancelled INR 2.3 H Cancelled PTT (Heparin Protocol) 95.7 H D Sodium Potassium Chloride Carbon Dioxide Anion Gap BUN Creatinine Estim Creat Clear Calc Estimated GFR Random Glucose Calcium B-Natriuretic Peptide 11/28/20 11/28/20 11/28/20 06:06 06:06 06:06 WBC Cancelled RBC Cancelled Hgb Cancelled Hct Cancelled MCV Cancelled MCH Cancelled MCHC Cancelled RDW Cancelled Plt Count Cancelled MPV Cancelled Absolute Nucleated RBC Cancelled Nucleated RBC % (auto) Cancelled PT INR PTT (Heparin Protocol) Sodium 144 Potassium 3.5 Chloride 110 H Carbon Dioxide 21 L Anion Gap 17 BUN 35 H Creatinine 1.57 H Estim Creat Clear Calc 33.9 Estimated GFR 43 Random Glucose 120 H Calcium 8.0 L B-Natriuretic Peptide 3472 H Microbiology Microbiology Results: Microbiology 11/20/20 Unknown Colon Direct Acid Fast Bacilli Smear - Final 11/16/20 03:12 Blood - Venous Blood Culture - Final No growth after 5 days. 11/16/20 03:10 Blood - Venous Blood Culture - Final No growth after 5 days. Assessment & Plan Time Spent With Patient Time: KATHLEEN : Better - Cr is better A. fib RVR NSTEMI Fluid overload Partial SBO possibly secondary to inflammatory vs neoplastic process Metabolic acidosis Hypernatremai Suggest 1.5 L fluid restriction 2 G Na diet Leg elevation Continue sodium Bicarb -as ordered On IV Bumex for edema/ CHF- atch for over diuresis F/u K and Divalents and replace Avoid nephrotoxins Total time spent is greater than 50% in coordination of care (as documented) at patient's floor/unit and/or counseling patient: Procedures Date of Service Date of Service: 11/28/20 Progress Note: Quality Stroke Does the patient have a stroke diagnosis?: No
[2020-11-28] MEDS: Melatonin 3 MG TABLET 6 MG PO (22:51)
[2020-11-28] MEDS: LORazepam 0.5 MG TABLET PO (22:51)
[2020-11-29] VITALS: BP 133/72; PULSE 79; RESP 16; TEMP 36.1; O2SAT 96
[2020-11-29 04:00] VITALS: PULSE 77; RESP 18
[2020-11-29 06:40] LABS: INTERNATIONAL NORM RATIO 2.2 (0.9-1.1); Prothrombin Time 25.8 SEC (9.9-13.0)
[2020-11-29 06:57] LABS: B Type Natriuretic Peptide 3514 pg/mL (<100)
[2020-11-29 08:00] VITALS: BP 159/82; PULSE 86; RESP 18; TEMP 37; O2SAT 97
[2020-11-29 08:18] LABS: Anion Gap 12 (12-20); Blood Urea Nitrogen 35 mg/dL (9-16); Calcium 7.7 mg/dL (8.4-10.2); Carbon Dioxide 27 mmol/L (22-29); Chloride 109 mmol/L (96-108); Creatinine Clr Calc Pharmacy 29.7; Estimated Glomerular Filt Rate 37; Glucose Random 109 mg/dL (60-115); Potassium 3.6 mmol/L (3.3-5.1); Sodium 144 mmol/L (135-145)
[2020-11-29 08:48] VITALS: BP 159/82; PULSE 86
[2020-11-29] MEDS: Sodium Bicarbonate 650 MG TABLET PO (08:48)
[2020-11-29] MEDS: Bumetanide 1 MG/4 ML VIAL 2 MG IVPUSH (08:48)
[2020-11-29] MEDS: Isosorbide Mononitrate 60 MG TAB.ER.24H PO (08:48)
[2020-11-29 08:49] VITALS: BP 159/82; PULSE 86
[2020-11-29] MEDS: Losartan Potassium 50 MG TABLET PO (08:49)
[2020-11-29] MEDS: Omeprazole 20 MG CAPSULE.DR PO (08:49)
[2020-11-29] MEDS: Levothyroxine Sodium 75 MCG TABLET PO (08:49)
[2020-11-29] MEDS: 0.9 % Sodium Chloride Flush 3 ML SYRINGE IVFLUSH (08:49)
[2020-11-29] MEDS: Metoprolol Tartrate 100 MG TABLET PO (08:49)
--- NOTE | 2020-11-29 09:41 | PM.PNCARD ---
Progress Note: A&P Assessment and plan (1) Acute systolic heart failure: Status: Acute <ANDRE Granados - Last Filed: 11/29/20 11:00> Assessment and Plan: Acute systolic CHF. More aggressively diuresed in last 2 days with clinical improvement in his sob and edema. Still has some lower leg edema but much improved. He would very much like to go home. Fluid balance is negative the last 2 days. Cr up to 1.79 today, from 1.57 yesterday. Follows with nephrology as well. Will stop IV Bumex. Recommend change to Bumex 1 mg po BID starting tomorrow. Can be discharged from a cardiology perspective with plan for repeat labs in 3 days - BMP, BNP. s/s CHF reviewed with him/ daughter. Fluid restriction per nephrology. Leg elevation when sitting and compression stocking use during daytime reviewed. <ANDRE Granados - Last Filed: 11/29/20 11:00> Patient said he is feeling better. Patient is seen and case discussed with Rajani Mantilla. Bilateral reduced air entry at the bases suggestive of pleural effusion. Patient symptomatic Nusrat better. Has diuresed well. Heart failure syndrome seems to have improved. Switch to Bumex 1 mg p.o. b.i.d. on discharge. Continue losartan and metoprolol. Will follow up in the office in 7-10 days. Follow-up limited echocardiogram in 1 weeks time, will be scheduled. Will require ischemic workup as outpatient once his medical issues have resolved. Large mural thrombus, continue warfarin therapy. Target INR between 2 and 3. <Munir Guillory MD - Last Filed: 11/29/20 13:42> (2) Paroxysmal atrial fibrillation: Status: Acute <ANDRE Granados - Last Filed: 11/29/20 11:00> Assessment and Plan: New finding this admit. Tele showing SR, freq PACs, rates 60-80 today. No report of palpitations. On Metoprolol for rate control. CHADSVASc score of 4. On Coumadin for anticoagulation, INR goal 2-3. INR today 2.2. Diagnosis of afib previously reviewed with him. He does have will apical mural thrombus. <ANDRE Granados - Last Filed: 11/29/20 11:00> Proximal atrial fibrillation overall suppressed. Continue metoprolol therapy. Continue warfarin therapy with target INR between 2 and 3. Patient may be discharged home with planned. Will follow up in the office. 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 Significant coronary artery disease still needs to be ruled out. He will continue on Losartan and Metoprolol for neurohormonal modulation. As outpt we will plan for Limited echo in 10-14 days to reeval EF, wall motion. Outpt ischemic evaluation to be determined. We will arrange outpt cardiology followup. <ANDRE Granados - Last Filed: 11/29/20 11:00> (4) Apical mural thrombus: Status: Acute <ANDRE Granados - Last Filed: 11/29/20 11:00> Assessment and Plan: On coumadin, INR goal 2-3. Needs referral to anticoagulation clinic <ANDRE Granados - Last Filed: 11/29/20 11:00> (5) Essential hypertension: Status: Acute <ANDRE Granados - Last Filed: 11/29/20 11:00> Assessment and Plan: Adequately controlled. Continue current mgt. <ANDRE Granados - Last Filed: 11/29/20 11:00> (6) PAC (premature atrial contraction): Status: Acute <ANDRE Granados - Last Filed: 11/29/20 11:00> Assessment and Plan: Freq PACs noted on tele monitoring. Asymptomatic. Continue Metoprolol. <ANDRE Granados - Last Filed: 11/29/20 11:00> Fall Risk Details Current Medications: Current Medications Generic Name Dose Route Start Last Admin Trade Name Freq PRN Reason Stop Dose Admin Acetaminophen 650 mg 11/24/20 10:30 11/24/20 12:57 Acetaminophen 325 Mg Tablet PO 650 mg Q6H PRN Administration fever, pain 1-3 Bumetanide 2 mg 11/28/20 16:00 11/29/20 08:48 Bumetanide 1 Mg/4 Ml Vial IVPUSH 2 mg BID ROCKY Administration Protocol Isosorbide Mononitrate 60 mg 11/25/20 09:00 11/29/20 08:48 Isosorbide Mononitrate 60 Mg Tab.Er.24h PO 60 mg DAILY ROCKY Administration Protocol Levothyroxine Sodium 75 mcg 11/22/20 09:00 11/29/20 08:49 Levothyroxine Sodium 75 Mcg Tablet PO 75 mcg DAILY ROCKY Administration Lorazepam 0.25 mg 11/26/20 15:29 11/28/20 19:07 Lorazepam 0.5 Mg Tablet PO 0.25 mg Q4H PRN Administration anxiety/restlessness Lorazepam 0.5 mg 11/27/20 13:59 11/28/20 22:51 Lorazepam 0.5 Mg Tablet PO 0.5 mg BEDTIME PRN Administration Insomnia Losartan Potassium 50 mg 11/25/20 21:00 11/29/20 08:49 Losartan Potassium 50 Mg Tablet PO 50 mg BID ROCKY Administration Protocol Melatonin 6 mg 11/27/20 20:45 11/28/20 22:51 Melatonin 3 Mg Tablet PO 6 mg BEDTIME PRN Administration Insomnia Metoprolol Tartrate 100 mg 11/25/20 21:00 11/29/20 08:49 Metoprolol Tartrate 100 Mg Tablet PO 100 mg BID ROCKY Administration Protocol Omeprazole 20 mg 11/22/20 09:00 11/29/20 08:49 Omeprazole 20 Mg Capsule.Dr PO 20 mg DAILY ROCKY Administration Ondansetron HCl 4 mg 11/18/20 12:13 11/19/20 18:06 Ondansetron Hcl 4 Mg/2 Ml Vial IVPUSH 4 mg Q8H PRN Administration Nausea and Vomiting Sodium Bicarbonate 650 mg 11/25/20 09:00 11/29/20 08:48 Sodium Bicarbonate 650 Mg Tablet PO 650 mg DAILY ROCKY Administration Sodium Chloride 3 ml 11/16/20 08:00 11/29/20 08:49 0.9 % Sodium Chloride Flush 3 Ml Syringe IVFLUSH 3 ml QSHIFT ROCKY Administration Warfarin Sodium 5 mg 11/25/20 18:00 11/28/20 16:48 Warfarin Sodium 5 Mg Tablet PO 5 mg DAILY@1800 ROCKY Administration <Rajani M NEVAEH MantillaC - Last Filed: 11/29/20 11:00> Time Spent With Patient Time: Total time spent is greater than 50% in coordination of care (as documented) at patient's floor/unit and/or counseling patient: 24 <ANDRE Granados - Last Filed: 11/29/20 11:00> Time with patient: 15 - 24 minutes <ANDRE Granados - Last Filed: 11/29/20 11:00> Subjective Subjective Date of Service: 11/29/20 <ANDRE Granados - Last Filed: 11/29/20 11:00> 11/29/20 <Munir Guillory MD - Last Filed: 11/29/20 13:42> Principal diagnosis: CMP, systolic CHF, LV Thrombus, PAF, SBO/ mass <ANDRE Granados - Last Filed: 11/29/20 11:00> Interval history: Cardiology follow up for CMP, CHF, LV thrombus, PAF. Seen at 0820. Today he is observed sitting up in chair. He reports sleeping well and feels good. Ambulates to bathroom without reported sob. Denies PND, orthopnea. States leg edema improved. No chest pains, palpitation, dizziness. Tolerating food. Still gets some abdominal bloating after eating. No abdominal pain, nausea, vomiting. Daughter present. <ANDRE Granados - Last Filed: 11/29/20 11:00> Review of Systems Review of Systems as above <ANDRE Granados - Last Filed: 11/29/20 11:00> Yes all other systems are reviewed and are negative <ANDRE Granados - Last Filed: 11/29/20 11:00> Physical Exam Vital Signs: Last Vital Signs Temp 98.6 F 11/29/20 08:00 Pulse 86 11/29/20 08:49 Resp 18 11/29/20 08:00 BP 159/82 H 11/29/20 08:49 Pulse Ox 97 11/29/20 08:00 Body Mass Index 22.0 <ANDRE Granados - Last Filed: 11/29/20 11:00> Const General: cooperative, no acute distress, alert and awake <Rajani RodriguezNEVAEH holmanC - Last Filed: 11/29/20 11:00> Orientation/consciousness: patient oriented x3 <Rajani MantillaRADHA-C - Last Filed: 11/29/20 11:00> Neck Other: sitting up - unable to accurately assess for JVD <Rajani MantillaNEVAEHC - Last Filed: 11/29/20 11:00> Neck: Yes normal visual inspection <Rajani MantillaRADHA-C - Last Filed: 11/29/20 11:00> Resp Effort & Inspection: normal respiratory effort, able to speak in complete sentences and not labored <Rajani Harrington RADHA Mantilla-C - Last Filed: 11/29/20 11:00> Auscultation: clear to auscultation bilaterally, no crackles, no rales, no rhonchi and no wheezes <Rajani Harrington RADHA Mantilla-C - Last Filed: 11/29/20 11:00> Cardio Palpation: normal PMI <Rajani Harrington RADHA Mantilla-C - Last Filed: 11/29/20 11:00> Rate: regular rate <Rajani RodriguezRADHA holman-C - Last Filed: 11/29/20 11:00> Rhythm: regular rhythm <Rajani Harrington RADHA Mantilla-C - Last Filed: 11/29/20 11:00> Heart sounds: S1 normal heart sound present and S2 normal heart sound present <Rajani Harrington RADHA Mantilla-C - Last Filed: 11/29/20 11:00> Peripheral pulses: Peripheral pulses 2+ throughout <Rajani Harrington RADHA Mantilla-C - Last Filed: 11/29/20 11:00> Neuro General: patient oriented x3 <Rajani Harrington RADHA Mantilla-C - Last Filed: 11/29/20 11:00> Extrem Other: bilateral compression stockings on, less pitting lower leg edema than yesterday <Rajani Harrington RADHA Mantilla-C - Last Filed: 11/29/20 11:00> Results Labs and Meds Result diagrams: : 11/28/20 06:06 11/29/20 05:30 <Rajani Harrington RADHA Mantilla-C - Last Filed: 11/29/20 11:00> Lab results: Laboratory Results - last 24 hr 11/29/20 11/29/20 11/29/20 05:30 05:30 05:30 PT 25.8 H INR 2.2 H Sodium 144 Potassium 3.6 Chloride 109 H Carbon Dioxide 27 Anion Gap 12 BUN 35 H Creatinine 1.79 H Estim Creat Clear Calc 29.7 Estimated GFR 37 Random Glucose 109 Calcium 7.7 L B-Natriuretic Peptide 3514 H <ANDRE Granados - Last Filed: 11/29/20 11:00> Progress Note: Quality Stroke Does the patient have a stroke diagnosis?: No <ANDRE Granados - Last Filed: 11/29/20 11:00> Procedures Date of Service Date of Service: 11/29/20 <ANDRE Granados - Last Filed: 11/29/20 11:00>
[2020-11-29 11:32] VITALS: BP 120/54; PULSE 56; RESP 18; TEMP 36.3; O2SAT 97
--- NOTE | 2020-11-29 11:47 | PM.DS ---
DS: Providers Provider Date of Service: 11/29/20 Date of admission: 11/16/20 05:21 Primary care physician: Eamon Hahn MD Consults: 11/16/20 05:21 Consult to General Surgery Routine Consulting Provider: Tomy Benitez Reason for consultation: partial SBO Consult to Hematology / Oncology Routine Consulting Provider: Diamond Vick Reason for consultation: Small bowel thickening-? Neoplasm; hx MGUS; leukopenia Consult to Nephrology Routine Consulting Provider: Checo Greenberg Reason for consultation: KATHLEEN 11/16/20 06:17 Consult to Cardiology Routine Consulting Provider: Darwin Valadez Reason for consultation: new onset afib 11/17/20 15:40 Consult to Gastroenterology Routine Consulting Provider: Meliton Og Reason for consultation: ? neoplasm, sbo Has provider been notified: No 11/21/20 09:28 Consult to Hematology / Oncology Routine Consulting Provider: Diamond Vick Reason for consultation: colon mass Has provider been notified: No 11/22/20 06:23 Consult to Cardiology Routine Consulting Provider: Rolando Lou Reason for consultation: CHF Has provider been notified: No 11/22/20 07:21 Consult to Cardiology Routine Consulting Provider: Rolando Lou Reason for consultation: nstemi Has provider been notified: No DS: Diagnosis Discharge Diagnosis (1) Acute systolic heart failure: Status: Acute (2) Paroxysmal atrial fibrillation: Status: Acute (3) Cardiomyopathy: Status: Acute (4) Apical mural thrombus: Status: Acute (5) Essential hypertension: Status: Acute (6) PAC (premature atrial contraction): Status: Acute (7) CKD (chronic kidney disease) stage 2, GFR 60-89 ml/min: Status: Acute (8) Small bowel obstruction: Status: Acute DS: Medications Discharge Medications Home Medications: Home Medications Medication Instructions Recorded Confirmed levothyroxine 1 tab PO DAILY 07/24/20 11/16/20 omeprazole 1 cap PO DAILY 07/24/20 11/16/20 Previous Rx's Medication Instructions Recorded bumetanide 1 mg PO BID #30 tab 11/27/20 isosorbide mononitrate 60 mg PO DAILY #30 tab 11/27/20 losartan 50 mg PO BID #60 tab 11/27/20 metoprolol tartrate 100 mg PO BID #60 tab 11/27/20 warfarin [Jantoven] 5 mg PO DAILY@1800 #30 tab 11/27/20 DS: Summary Hospital Course Hospital Course: Final Discharge Diagnosis: Partial SBO/colon lesion Acute HFrEF NSTEMI New onset atrial fibrillation with RVR KATHLEEN/metabolic acidosis Aspiration PNA Secondary Diagnosis: HTN hypothyroidism From H&P on day of admission 80-year-old male With a past medical history of hypertension, hypothyroidism, hiatal hernia, history of basal cell carcinoma, 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 Patient reports that last Wednesday had abdominal discomfort and diarrhea and since then he has not been had any episodes of bowel movement and has not been passing gas. Complains of abdominal discomfort. Yesterday he had crackers and Gatorade; today he had like 3 episodes of nausea and vomiting did not eat or drink anything today. Denies any blood in the vomitus. Reports generalized weakness. Complains of pain in the right lateral chest wall, worsens with deep inspiration. Denies any blood in the vomitus. Denies any chest pain palpitations lightheadedness or dizziness. Denies any urinary symptoms. Denies any cough or sputum production. Review of all other systems is negative except mentioned above ER course: Per ER team patient noted to have mild diffuse abdominal tenderness; CT scan showed dilated small bowel loops near the terminal ileum-causing partial SBO and findings concerning for neoplasm likely lymphoma; lactate was within the normal limits, lab showed elevated creatinine and low bicarb. Given IV fluids. CT scan also concern for pneumonia. Admitted for further management. Patient was admitted for small bowel obstruction, KATHLEEN and pneumonia secondary to aspiration. Hosptial course by problem: Partial SBO. NGT placed. Seen by surgery and GI. Underwent colonoscopy which showed circumferential mass noted at terminal ileum, mass at cecum. NGT was removed. Slowly he began passing gas and eventually began having bowel movements. His diet was advanced and he is currently tolerating regular diet. Final Pathology report pending at the time of discharge. Initially thought to be secondary to B-cell lymphoma however pathology was not diagnostic for the same. Patient was seen by oncology in the hospital and will follow-up for further care as outpatient. Patient would prefer to avoid surgery if possible. If surgery is necessary will likely need ischemic workup prior to proceeding. Aspiration pneumonia. Likely related to vomiting in the setting of pSBO. patient was treated with zosyn and completed course of antibiotics in the hospital. His respiratory status has improved and he not requiring any supplemental oxygen. His hospital course was complicated by atrial fibrillation which was new to the patient. He had intermittent with RVR. ECHO showing possible Takatsubo likely in the setting of acute medical illness as well as apical mural thrombus. He was started on metoprolol which was titrated for adequate heart rate control. He was started on heparin gtt which was eventually transitioned to Coumadin. Coumadin is therapeutic on day of discharge. INR will be repeated on Wednesday and dose should be adjusted accordingly. He was started on losartan for blood pressure control and neurohumerol modulation by cardiology. Patient began to appear fluid overloaded likely due to combination of cardiomyopathy, atrial fibrillation with RVR and fluid received for pSBO. He was diuresed with IV Bumex which was transitioned to p.o. Bumex. He will be discharged home with p.o. Bumex. He should follow up with Cardiology as an outpatient. He still has some leg edema, although it has improved significantly. He should continue to keep legs elevated during the day, follow fluid restriction and wear compression stockings. He was eager to return home and labs including BNP, BMP will be checked on Wednesday. NSTEMI. Cardiac enzymes trended up. NSTEMI likely type 2 / Takatsubo. He was treated with IV heparin drip. Cardiology was involved in his care. Will need outpatient ischemic workup. KATHLEEN, hyperNa (resolved). Likely multifactorial. Improved somewhat with iVF. Seen in consultation by nephrology. Creatinine was trending back up likely due to diuresis. Labs will be rechecked on Wednesday. Given above multiple medical co-morbidities and active medical problems he has high likely collazo of re-admission. Goals of care discussion was had with patient and family and they were in agreement for patient to remain full code. Time Spent with Patient Time attestation: Total time spent providing and/or coordinating discharge services: Discharge coordination time: Greater than 30 minutes Quality: Stroke Does the patient have a stroke diagnosis?: No Physical Exam Vital Signs: Vital Signs: Last Vital Signs Temp 97.4 F 11/29/20 11:32 Pulse 56 11/29/20 11:32 Resp 18 11/29/20 11:32 BP 120/54 L 11/29/20 11:32 Pulse Ox 97 11/29/20 11:32 Body Mass Index 22.0 Const: Nutritional Appearance: well nourished Orientation/consciousness: patient oriented x3 HENMT: Head: Yes normocephalic and Yes atraumatic Eyes: Sclerae: sclerae normal Chest: Chest palpation & inspection: normal inspection of the chest Resp: Effort & Inspection: normal respiratory effort and no respiratory distress Cardio: Heart sounds: S1 normal heart sound present and S2 normal heart sound present GI: Palpation (GI): Soft to palpation and nontender Neuro: General: patient oriented x3 Cranial nerves: Yes CN's II-XII intact bilaterally and Yes Bilaterally intact EOM present Extrem: Other: b/l leg edema DS: Data Data Completed and Pending Pending studies at discharge: Pending at discharge 11/20/20 14:08 Surgical [PTH] Routine Labs on day of discharge: Laboratory Results - last 24 hr 11/29/20 11/29/20 11/29/20 05:30 05:30 05:30 PT 25.8 H INR 2.2 H Sodium 144 Potassium 3.6 Chloride 109 H Carbon Dioxide 27 Anion Gap 12 BUN 35 H Creatinine 1.79 H Estim Creat Clear Calc 29.7 Estimated GFR 37 Random Glucose 109 Calcium 7.7 L B-Natriuretic Peptide 3514 H Discharge Plan Discharge Anticipated Discharge Date/Time: 11/27/20 12:34 Patient Disposition: Home Health Service Discharge Diagnosis: Small-bowel obstruction B-cell lymphoma, 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 Atrial fibrillation Takotsubo Apical thrombus Acute kidney injury NSTEMI Aspiration pneumonia Referrals: [facility] [Outside] - 1 Week Diamond Vick MD [Physician] - 12/04/20 3:30 pm (Scheduled appointment ) Rolando Lou MD [Physician] - None ( follow-up for complete cardiac workup prior to aggressive cancer treatments or surgery) Physician,Unknown [Physician] - 1 Week Discharge Medications: New bumetanide 1 mg Tablet 1 mg PO BID Qty: 30 RF: 0 warfarin [Jantoven] 5 mg Tablet 5 mg PO DAILY@1800 Qty: 30 RF: 0 losartan 50 mg Tablet 50 mg PO BID Qty: 60 RF: 0 metoprolol tartrate 100 mg Tablet 100 mg PO BID Qty: 60 RF: 0 isosorbide mononitrate 60 mg Tablet Extended Release 24 Hr 60 mg PO DAILY Qty: 30 RF: 0 lorazepam [Ativan] 0.5 mg tablet 0.25 mg PO Q6H PRN (Reason: anxiety) Qty: 30 RF: 0 Continued levothyroxine 75 mcg tablet 1 tab PO DAILY RF: 0 omeprazole 20 mg capsule,delayed release(DR/EC) 1 cap PO DAILY RF: 0 Discontinued clonidine HCl 0.1 mg tablet 1 tab PO BID RF: 0 nifedipine 60 mg tablet extended release 24hr 2 tab PO DAILY RF: 0 benazepril 40 mg tablet 1 tab PO DAILY RF: 0 atenolol 50 mg tablet 1 tab PO DAILY RF: 0 Discharge Orders: Discharge Order (Routine); Ordered 11/29/20 Ordered By: Audrey Pierce Diet: advance to usual diet Activity on Discharge: As tolerated Stand Alone Forms: Patient Portal Discharge page Other Ambulatory Orders: Basic Metabolic Panel (Routine) Timeframe: 20201202 Facility: [facility] - Location: Laboratory Ordered By: Audrey Pierce B Type Natriuretic Peptide (Routine) Timeframe: 20201202 Facility: [facility] - Location: Laboratory Ordered By: Audrey Pierce Prothrombin Time INR (Routine) Timeframe: 20201202 Facility: [facility] - Location: Laboratory Ordered By: Audrey Pierce Care Plan Goals: Resolution of stress cardiomyopathy, apical thrombus Health Concerns: Small-bowel obstruction 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 Atrial fibrillation Takotsubo/CHF Apical thrombus Acute kidney injury NSTEMI Aspiration pneumonia Plan of Treatment: Follow-up with Dr. Vick, oncologist for plan of care regarding colon lesion Follow up with cardiology for management of apical thrombus, atrial fibrillation and cardiomyopathy Your blood pressure medication has been changed. Please take medication as prescribed. You have been started on a blood thinner. please monitor for signs of bleeding. Labs will need to be re-checked on Wednesday Continue using compression stockings and fluid restriction and leg elevation during the day. Assessment: See discharge summary Discharge Date/Time: 11/29/20 13:13
--- NOTE | 2020-11-29 12:28 | MHC.CM.PN ---
Patient has been medically cleared for dc to home today, with services. A referral had been made to [facility] and they have been notified of today's dc. Last IMM addressed on 11/27/20.
--- NOTE | 2020-12-01 15:54 | W.PM.OPN ---
Operative Note Operative Note Date of Service: 11/20/20 Narrative: Pre-op diagnosis: SBO, abnormal CT scan of TI and cecum Post-op diagnosis: other (Mass in TI and cecum, diverticulosis, hemorrhoids) Procedure: COLONOSCOPY TILL CECUM WITH BIOPSIES Consent: Indications for the procedure and potential complications of bleeding, perforation, reaction to medications and missed diagnosis were discussed with the patient and informed consent was obtained. Instrument: Olympus PCF H 190 L variable stiffness pediatric colonoscope Monitoring: Vital signs and clinical assessment, intermittent blood pressure monitoring, continuous EKG monitoring, Pulse oximetry and Carbon Dioxide monitoring were done throughout the procedure. Colon withdrawl time was 30 minutes. Procedure: The patient was placed in the left lateral decubitis position and pre-procedure medications were administered. After a digital rectal examination of the ano-rectum, the video colonoscope was inserted into the rectum and advanced through the colon to the cecum. The colonoscope was slowly withdrawn in a retrograde panoramic fashion and the colon mucosa was carefully examined including a retroflexed view of the rectum. Findings and interventions are described below. Procedure Difficulty: Colon was long and tortuous and there was some loop formation. LLQ pressure was applied to intubate the ascending colon Findings: Terminal Ileum: Circumferential, ulcerated and polypoidal mass at the TI, ICV with narrowing of TI - biopsied were obtained. Multiple attempts to intubate the TI were unsuccessful due to luminal narrowing Cecum: Polypoidal mass/carpet polyp in the cecum - multiple biopsies obtained and sent for histology and AFP smear and culture Ascending Colon: Normal Transverse Colon: Normal Descending Colon: Moderate diverticulosis Sigmoid Colon: Moderate diverticulosis Rectum: Normal Ano-rectum: Moderate internal hemorrhoids Colon preparation: Fair despite copious irrigation Impression and Post Procedure Diagnosis: Colonoscopy Findings: Terminal Ileum: Circumferential, ulcerated and polypoidal mass at the TI, ICV with narrowing of TI - biopsied were obtained. Multiple attempts to intubate the TI were unsuccessful due to narrowing Cecum: Polypoidal mass/carpet polyp in the cecum adjacent to TI - multiple biopsies obtained and sent for histology and AFP smear and culture Moderate diverticulosis seen in the left colon Moderate hemorrhoids on retroflexed exam. Plan: Await pathology results Start a full liquid diet today and advance diet as tolerated. Repeat Colonoscopy in 6 to 12 months if biopsies confirm malignancy Above findings were reviewed with the patient. Surgeon: Meliton Og MD Anesthesia: MAC (Poly Rodriguez CRNA) Was an Casting Technician used for this Procedure?: Yes Casting Technician: Magno Dobson Estimated blood loss (mL): 0 Pathology: other (A- CECAL MASS BXS R/O MALIGNANCY. R/O ILEO CECAL TERBUCLOSIS. PROCESS MOHINDER PLEASE. B- MASS OF TI BXS C- CECAL MASS BXS FOR AFB) Condition: stable Disposition: PACU
== END 2020-11-29 13:13 | disposition home health service (06) | DRG 840 ==
LOC: HO.ED 05:26 → HO.S3 05:37 → HO.IMC 08:36
PROVIDERS: Hospitalist; Internal Medicine; Internal Medicine Gastroenterology; Nurse Practitioner Acute Care; Nurse Practitioner Family; Physician Assistant Medical; Admitting Provider Hospitalist; Emergency Provider Emergency Medicine Emergency Medical Services; PCP Internal Medicine; Visit Provider Family Medicine
PROC: 0DJD8ZZ Inspection of Lower Intestinal Tract, Via Natural or Artificial Opening Endoscopic (ICD-10-PCS; CPT 45378; principal; 2020-11-20 13:00)
DX: C85.13 Unspecified B-cell lymphoma, intra-abdominal lymph nodes (principal); J69.0 Pneumonitis due to inhalation of food and vomit; I21.A1 Myocardial infarction type 2; N17.9 Acute kidney failure, unspecified; E87.2 Acidosis; E87.0 Hyperosmolality and hypernatremia; I51.81 Takotsubo syndrome; E03.9 Hypothyroidism, unspecified; D47.2 Monoclonal gammopathy; E86.0 Dehydration; I12.9 Hypertensive chronic kidney disease with stage 1 through stage 4 chronic kidney disease, or unspecified chronic kidney disease; I48.91 Unspecified atrial fibrillation; N18.2 Chronic kidney disease, stage 2 (mild); K57.30 Diverticulosis of large intestine without perforation or abscess without bleeding; I51.3 Intracardiac thrombosis, not elsewhere classified; K44.9 Diaphragmatic hernia without obstruction or gangrene; K64.8 Other hemorrhoids; M19.90 Unspecified osteoarthritis, unspecified site; I49.1 Atrial premature depolarization; Z20.822 Contact with and (suspected) exposure to COVID-19; Z79.01 Long term (current) use of anticoagulants; Z79.890 Hormone replacement therapy; Z79.899 Other long term (current) drug therapy
CPT/HCPCS: 36415; 71045; 74176; 80048; 80076; 81001; 81168; 81261; 81264; 82272; 82378; 82570; 82607; 82784; 83605; 83690; 83735; 83880; 83883; 84156; 84165; 84166; 84484; 85007; 85025; 85027; 85610; 85730; 86334; 87040; 87116; 87635; 88305; 88312; 88341; 88342; 88360; 93005; 93306; 93308; 97110; 97116; 97161; 99285; J0456; J0696; J1160; J1170; J1200; J1940; J2405; J2543; Q9957

== ENCOUNTER 2020-12-02 11:05 | Outpatient (REF) | payer MEDICARE, OTHER, SELFPAY ==
[2020-12-02 11:45] LABS: INTERNATIONAL NORM RATIO 2.1 (0.9-1.1); Prothrombin Time 24.3 SEC (9.9-13.0)
[2020-12-02 12:04] LABS: Anion Gap 14 (12-20); B Type Natriuretic Peptide 3462 pg/mL (<100); Blood Urea Nitrogen 31 mg/dL (9-16); Calcium 7.8 mg/dL (8.4-10.2); Carbon Dioxide 28 mmol/L (22-29); Chloride 105 mmol/L (96-108); Estimated Glomerular Filt Rate 44; Glucose Random 109 mg/dL (60-115); Potassium 3.8 mmol/L (3.3-5.1); Sodium 143 mmol/L (135-145)
== END 2020-12-02 11:06 | disposition home or self-care (01) ==
LOC: HO.LAB 11:05
PROVIDERS: PCP Internal Medicine; Visit Provider Physician Assistant Medical
DX: I50.21 Acute systolic (congestive) heart failure (principal); I48.0 Paroxysmal atrial fibrillation
CPT/HCPCS: 36415; 80048; 83880; 85610

== ENCOUNTER → 2020-12-04 14:36 | Outpatient (BNVA) | payer MEDICARE, OTHER, SELFPAY | PROVIDERS: PCP Internal Medicine; Referring Provider Internal Medicine; Visit Provider Nurse Practitioner Family | DX: I42.9 Cardiomyopathy, unspecified (principal); I50.21 Acute systolic (congestive) heart failure; I51.3 Intracardiac thrombosis, not elsewhere classified; I10 Essential (primary) hypertension; I49.1 Atrial premature depolarization; I48.0 Paroxysmal atrial fibrillation | CPT/HCPCS: 99212 ==

== ENCOUNTER 2020-12-10 09:23 | Outpatient (REF) | payer MEDICARE, OTHER, SELFPAY ==
[2020-12-10 11:16] LABS: Anion Gap 15 (12-20); Blood Urea Nitrogen 22 mg/dL (9-16); Calcium 8.4 mg/dL (8.4-10.2); Carbon Dioxide 25 mmol/L (22-29); Chloride 105 mmol/L (96-108); Estimated Glomerular Filt Rate 52; Glucose Random 115 mg/dL (60-115); Potassium 3.9 mmol/L (3.3-5.1); Sodium 141 mmol/L (135-145)
[2020-12-10 11:27] LABS: B Type Natriuretic Peptide 3057 pg/mL (<100)
== END 2020-12-10 09:24 | disposition home or self-care (01) ==
LOC: HO.LAB 09:23
PROVIDERS: PCP Internal Medicine; Visit Provider Nurse Practitioner Family
DX: I50.21 Acute systolic (congestive) heart failure (principal)
CPT/HCPCS: 36415; 80048; 83880

== ENCOUNTER 2020-12-22 18:45 | Emergency (ER) | payer MEDICARE, OTHER, SELFPAY ==
--- NOTE | ~2020-12-22 | CT_ITS ---
EXAMINATION: CT HEAD WITHOUT CONTRAST CLINICAL INFORMATION: Left leg weakness COMPARISON: None. TECHNIQUE: Contiguous axial imaging was performed from the skull base to vertex without intravenous administration of contrast. Coronal and sagittal reformatted images are performed at the CT scanner. [This CT examination was performed using dose optimization techniques as appropriate, variously including the following: *Automated exposure control *Adjustment of mA and/or kV according to patient size (this includes techniques or standardized protocols for targeted exams where dose is matched to indication/reason for exam; i.e. extremities or head) *Use of iterative reconstruction technique] DLP: 872 mGy-cm. FINDINGS: Focal encephalomalacia from an old infarct present in the right occipital/temporal lobe medially. There is no evidence of acute intracranial hemorrhage or territorial infarction. No abnormal mass-effect or midline shift is seen. Lainez to white matter differentiation is well preserved. No extra-axial fluid collections are identified. There is generalized global volume loss. There is moderate prominence of the ventricles and the sulci . There acute is mild hypodensity of the periventricular white matter due to chronic small vessel ischemic disease. There are vascular calcifications of the internal carotid arteries bilaterally. There is no osseous abnormality. The mastoid air cells and visualized portions of the paranasal sinuses are well-aerated. CT/CT head/brain wo con IMPRESSION: No acute intracranial pathology. 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
--- NOTE | ~2020-12-22 | CT_ITS ---
EXAMINATION: CT CHEST WITHOUT CONTRAST CLINICAL INFORMATION: Evaluate right lung disease. COMPARISON: Most recent chest radiograph done earlier the same day and CT abdomen/pelvis dated 11/18/2020. TECHNIQUE: Multidetector volumetric CT imaging of the chest was done. Axial MIP volume rendering provided. Sagittal and coronal reformatted images were obtained. This CT examination was performed using dose optimization techniques as appropriate, variously including the following: *Automated exposure control. *Adjustment of mA and/or kV according to patient size (this includes techniques or standardized protocols for targeted exams where dose is matched to indication/reason for exam; i.e. extremities or head). *Use of iterative reconstruction technique. 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 LUNGS: Mild emphysematous changes. Confluent right middle lobe airspace consolidation, decreased in prominence when compared to the CT dated 11/18/2020. Near-complete resolution of previously seen right lower lobe airspace opacities. No new or increasing confluent airspace consolidation. No new pulmonary nodule or mass. The central airways are patent. MEDIASTINUM: No cardiomegaly. No pericardial effusion. No thoracic aortic dilatation. Prominent atherosclerotic calcifications. Mildly prominent superior mediastinal lymph nodes with the largest in the precarinal region measuring 1.5 x 1.5 cm. Atrophic thyroid. PLEURA: Trace right-sided pleural effusion, decreased when compared to the prior examination. No pneumothorax. AXILLA: No lymphadenopathy. UPPER ABDOMEN: Unremarkable. OSSEOUS STRUCTURES: Unremarkable. CT/CT chest wo con IMPRESSION: 1. Right middle lobe airspace consolidation, significantly decreased when compared to the prior examination. Near-complete resolution of previously seen right lower lobe airspace consolidation. 2. Trace right-sided pleural effusion, decreased when compared to the prior examination. 3. Mild emphysematous changes. No new pulmonary nodule or mass. 4. Mildly prominent superior mediastinal lymph nodes measuring up to 1.5 x 1.5 cm.
--- NOTE | ~2020-12-22 | XR_ITS ---
EXAMINATION: XR CHEST CLINICAL INFORMATION: Dizziness. COMPARISON: Chest x-ray November 22, 2020, November 22, 2020. CT abdomen and pelvis November 18, 2020 TECHNIQUE: Frontal portable view of the chest was obtained. 7:34 PM FINDINGS: Dense consolidation with air bronchograms at the right lung base. This is similar prior studies. Left lung normally aerated. No pleural effusion pneumothorax. Heart size is normal. Cardiac mediastinal contours normal. No pulmonary vascular congestion. XR/XR chest 1V IMPRESSION: Dense consolidation with air bronchograms at the right lung base.
[2020-12-22 19:03] VITALS: BP 135/82; BP 158/71; PULSE 55; PULSE 64; RESP 16; TEMP 36.7; O2SAT 98; O2SAT 99; BMI 21.4
--- NOTE | 2020-12-22 19:12 | ECG_ITS ---
Test Reason : DIZZINESS Blood Pressure : / mmHG Vent. Rate : 066 BPM Atrial Rate : 066 BPM P-R Int : 168 ms QRS Dur : 092 ms QT Int : 508 ms P-R-T Axes : 056 -64 186 degrees QTc Int : 532 ms Sinus rhythm with Premature supraventricular complexes Left anterior fascicular block Septal infarct (cited on or before 16-NOV-2020) ST & Marked T wave abnormality, consider anterolateral ischemia Prolonged QT Abnormal ECG When compared with ECG of 24-NOV-2020 11:16, Serial changes of Septal infarct Present T wave inversion more evident in Anterolateral leads Clinical Correlation Advised Referred By: Generic ED Physician Electronically Signed By:MARI ORTIZ
--- NOTE | 2020-12-22 19:14 | PC.NURSE ---
Labs and EKG obtained.
--- NOTE | 2020-12-22 19:27 | ED_ITS ---
HPI - Syncope General Chief Complaint: Syncope Stated Complaint: not feeling well, dizzy, bradycardia, a fib Time Seen by Provider: 12/22/20 19:05 Source: patient, family, EMS and old records reviewed Mode of arrival: EMS Limitations: no limitations History of Present Illness HPI narrative: 80 yo male CKD, CHF, recent Takotsubo cardiomyopathy, CHF, PAF with apical mural thrombus, hypothyroidism, SBO with recent admission and DC in November comes in with c/o feeling weak, dizzy, lightheaded around 5pm tonight - it has resolved, he was standing outside at that time. Also notes on waking early this AM his R leg was it has since resolved and he was thinking he slept on it weird. Denies CP/SOB, GIB symptoms MD complaint: felt faint Onset (ago): hour(s) (3) Prodromal symptoms: lightheaded Witnessed: No Context: standing up Injuries sustained associated with event: none Current symptoms: back to baseline History: other (recent prolonged hospital stay, on coumadin, takotsubo cardiomyopathy) Treatments prior to arrival: none Related Data Home Medications Medication Instructions Recorded Confirmed levothyroxine 75 mcg tablet 75 mcg PO DAILY 07/24/20 12/22/20 omeprazole 20 mg capsule,delayed 20 mg PO DAILY 07/24/20 12/22/20 release Previous Rx's Medication Instructions Recorded losartan 50 mg tablet 50 mg PO BID #60 tab 11/27/20 metoprolol tartrate 100 mg tablet 100 mg PO BID #60 tab 11/27/20 warfarin 5 mg tablet (Jantoven) 5 mg PO DAILY@1800 #30 tab 11/27/20 bumetanide 1 mg tablet 1 mg PO BID #60 tab 12/16/20 Allergies Allergy/AdvReac Type Severity Reaction Status Date / Time No Known Allergies Allergy Mild NONE Verified 12/04/20 14:44 Review of Systems Review of Systems: Constitutional : No Weight loss, No Fever, No Chills, pos Fatigue, No Malaise ENT/Mouth : No sore throat, No Rhinorrhea Eyes: No Eye Pain, No Swelling, No Redness Cardiovascular : No Chest Pain, No SOB, No Dyspnea on Exertion, No Orthopnea, No Edema, No Palpitations Respiratory : No Cough, No Sputum, No Wheezing Gastrointestinal : No Nausea, No Vomiting, No Diarrhea, No Constipation, No abdominal Pain, No Hematochezia, No Melena Genitourinary : No Dysuria, No Urinary Frequency, No Hematuria, Musculoskeletal : No joint pain, No Myalgias, No Joint Swelling Skin : No Skin Lesions, No rash Neuro : pos Weakness, No Numbness, pos Dizziness, No Headache Psych : No Anxiety/Panic, No Depression Heme/Lymph: No Bruising, No Bleeding,No Lymphadenopathy Endocrine : No Polyuria, No Polydipsia All other systems reviewed and are negative [facility] Past Medical History Attestation statement: The following information was validated with the patient. Medical History (Updated 12/22/20 @ 21:58 by Rebecca Stauffer DO) Apical mural thrombus Arthritis Atrial fibrillation Basal cell carcinoma Hiatal hernia HTN (hypertension) Hypothyroidism Leg edema Lymphadenopathy Rosacea Surgical History Hx of biopsy Hx of colonoscopy Hx of tonsillectomy Hx of total knee replacement Family History Family History Father Heart disease Social History Social History Household Members: Spouse Housing: House Alcohol intake: current Alcohol intake frequency: holidays/special occasions only Alcohol type: beer Patient Tobacco Use Status: Never used Tobacco Cigarette Packs Per Day: 0.5 Advance Directives: No Advance Directives Information Provided: No service: Yes Current occupational status: retired Physical Exam Vital Signs: Vital Signs: Last Vital Signs Temp 98.0 F 12/22/20 19:03 Pulse 78 12/22/20 20:30 Resp 16 12/22/20 19:03 BP 177/88 H 12/22/20 20:30 Pulse Ox 99 12/22/20 19:03 Body Mass Index 21.4 Appearance: Alert. Oriented X3. No acute distress. Eyes: Pupils equal, round and reactive to light. ENT: Pharynx normal. Neck: Normal inspection. Neck supple. CVS: Normal heart rate and rhythm. Pulses normal. Respiratory: No respiratory distress. Breath sounds normal. Abdomen: Soft and nontender. Skin: Skin warm and dry. Normal skin color. Normal skin turgor. Extremities: No lower extremity edema. No calf ttp Neuro: Oriented X 3. No motor deficit. No sensory deficit. Course Course Course Narrative: will obtain CT scan of chest to evaluate the disease in RLL hold off on abx as this is reported to be chronic 956PM at this time possible persistent infection will start on antibiotics and admit to hospital for further workup patient and family want to go home - has oncology appointment in the AM wants to follow up then will hold antibiotics until appointment afebrile no WBC count - no respiratory complaints trop lower than baseline MDM - Syncope MDM Narrative Medical decision making narrative: 80 yo male CKD, CHF, recent Takotsubo cardiomyopathy, CHF, PAF with apical mural thrombus, hypothyroidism, SBO with recent admission and DC in November comes in with c/o feeling weak, dizzy, lightheaded around 5pm tonight - it has resolved, he was standing outside at that time. Also notes on waking early this AM his R leg was it has since resolved and he was thinking he slept on it weird. Denies CP/SOB, GIB symptoms at this time EKG, labs, CT head given resolved R sided leg deficit, orthostatic VS, dispo per results and findings. Lab Data Result diagrams: 12/22/20 19:14 12/22/20 19:14 Labs: Lab Results 12/22/20 12/22/20 12/22/20 Range/Units 19:14 19:14 19:14 WBC 5.7 (4.8-10.8) X10*3/uL RBC 3.36 L (4.60-5.80) X10*6/uL Hgb 10.0 L (14.0-18.0) g/dl Hct 30.9 L (42-52) % MCV 92.0 (80-98) fL MCH 29.8 (27.0-33.0) pg MCHC 32.4 (31.0-36.0) g/dl RDW 13.9 (11.0-16.0) % Plt Count 367 D (160-400) X10*3/uL MPV 10.0 (9.4-12.4) fL Immature Gran % (Auto) 0.3 (0.0-0.4) % Neut % (Auto) 63.3 (45-73) % Lymph % (Auto) 24.4 (20-40) % [place] % (Auto) 9.2 (2-11) % Eos % (Auto) 2.3 (0-4) % Baso % (Auto) 0.5 (0-2) % Lymph # (Auto) 1.4 (1.2-4.9) X10*3/uL [place] # (Auto) 0.5 (0.1-1.2) X10*3/uL Eos # (Auto) 0.1 (0.0-0.4) X10*3/uL Baso # (Auto) 0.0 (0.0-0.2) X10*3/uL Abs Immat Gran (auto) 0.02 (0.00-0.03) X10*3/uL Absolute Neuts (auto) 3.6 (2.0-8.3) X10*3/uL Absolute Nucleated RBC 0.000 (0.0-0.012) X10*3/uL Nucleated RBC % (auto) 0.0 (0.0-0.2) /100WBC PT (9.9-13.0) SEC INR (0.9-1.1) Sodium 142 (135-145) mmol/L Potassium 3.7 (3.3-5.1) mmol/L Chloride 104 (96-108) mmol/L Carbon Dioxide 26 (22-29) mmol/L Anion Gap 16 (12-20) BUN 24 H (9-16) mg/dL Creatinine 1.57 H (0.5-1.4) mg/dL Estim Creat Clear Calc 32.9 Estimated GFR 43 Random Glucose 80 (60-115) mg/dL Lactic Acid (0.5-2.0) mmol/L Calcium 8.8 (8.4-10.2) mg/dL Troponin I High Sens 85.9 H* D (<3.5-35.0) ng/L COVID-19 ([facility]) (Negative) COVID-19 Clin Com 12/22/20 12/22/20 12/22/20 Range/Units 19:14 20:33 21:44 WBC (4.8-10.8) X10*3/uL RBC (4.60-5.80) X10*6/uL Hgb (14.0-18.0) g/dl Hct (42-52) % MCV (80-98) fL MCH (27.0-33.0) pg MCHC (31.0-36.0) g/dl RDW (11.0-16.0) % Plt Count (160-400) X10*3/uL MPV (9.4-12.4) fL Immature Gran % (Auto) (0.0-0.4) % Neut % (Auto) (45-73) % Lymph % (Auto) (20-40) % [place] % (Auto) (2-11) % Eos % (Auto) (0-4) % Baso % (Auto) (0-2) % Lymph # (Auto) (1.2-4.9) X10*3/uL [place] # (Auto) (0.1-1.2) X10*3/uL Eos # (Auto) (0.0-0.4) X10*3/uL Baso # (Auto) (0.0-0.2) X10*3/uL Abs Immat Gran (auto) (0.00-0.03) X10*3/uL Absolute Neuts (auto) (2.0-8.3) X10*3/uL Absolute Nucleated RBC (0.0-0.012) X10*3/uL Nucleated RBC % (auto) (0.0-0.2) /100WBC PT 30.0 H D (9.9-13.0) SEC INR 2.6 H (0.9-1.1) Sodium (135-145) mmol/L Potassium (3.3-5.1) mmol/L Chloride (96-108) mmol/L Carbon Dioxide (22-29) mmol/L Anion Gap (12-20) BUN (9-16) mg/dL Creatinine (0.5-1.4) mg/dL Estim Creat Clear Calc Estimated GFR Random Glucose (60-115) mg/dL Lactic Acid 1.3 (0.5-2.0) mmol/L Calcium (8.4-10.2) mg/dL Troponin I High Sens (<3.5-35.0) ng/L COVID-19 ([facility]) Negative (Negative) COVID-19 Clin Com See Note ECG Data Attestation: I personally reviewed and interpreted this ECG as follows: ECG interpretation date: 12/22/20 ECG interpretation time: 19:32 Interpretation: Rate: 71 Rhythm: NSR Thayer: left Normal P waves. Normal VICKY. Normal QRS complex. ST T wave : deep inverted t waves V2-V6, 1 and aVL qTC: prolonged prior studies: no sig change from November 19 2020 The study has been interpreted contemporaneously by me. . Discharge Plan Discharge Clinical Impression: Near syncope, Weakness Patient Disposition: Home, Self-Care Instructions: Near Syncope (ED), Weakness (ED) Additional Instructions: return to ED for any worsening symptoms or concerns INR2.6 you were offered admission for near syncope and possible falls, weakness and persistent consolidation in your right lung but you refused, please go to your oncology appointment in the morning Prescriptions: No Action bumetanide 1 mg tablet 1 mg PO BID Qty: 60 RF: 3 levothyroxine 75 mcg tablet 75 mcg PO DAILY RF: 0 omeprazole 20 mg capsule,delayed release(DR/EC) 20 mg PO DAILY RF: 0 warfarin [Jantoven] 5 mg Tablet 5 mg PO DAILY@1800 Qty: 30 RF: 0 losartan 50 mg Tablet 50 mg PO BID Qty: 60 RF: 0 metoprolol tartrate 100 mg Tablet 100 mg PO BID Qty: 60 RF: 0
[2020-12-22 19:44] LABS: MANUAL DIFF FLAG NO
[2020-12-22 19:47] LABS: Basophils Percent Auto 0.5 % (0-2); Eosinophils Absolute Auto 0.1 X10*3/uL (0.0-0.4); Eosinophils Percent Auto 2.3 % (0-4); Hematocrit 30.9 % (42-52); Imm Gran Abs Auto 0.02 X10*3/uL (0.00-0.03); Imm Gran Pct Auto 0.3 % (0.0-0.4); Lymphocytes Absolute Auto 1.4 X10*3/uL (1.2-4.9); Lymphocytes Percent Auto 24.4 % (20-40); Mean Corpuscular HGB Conc 32.4 g/dl (31.0-36.0); Mean Corpuscular Hemoglobin 29.8 pg (27.0-33.0); Monocytes Absolute Auto 0.5 X10*3/uL (0.1-1.2); Monocytes Percent Auto 9.2 % (2-11); Neutrophils Absolute Auto 3.6 X10*3/uL (2.0-8.3); Neutrophils Percent Auto 63.3 % (45-73); Platelet Count 367 X10*3/uL (160-400); Red Blood Count 3.36 X10*6/uL (4.60-5.80); Red Cell Distribution Width 13.9 % (11.0-16.0); White Blood Count 5.7 X10*3/uL (4.8-10.8)
--- NOTE | 2020-12-22 19:48 | PC.NURSE ---
CXR at bedside.
[2020-12-22 19:55] LABS: INTERNATIONAL NORM RATIO 2.6 (0.9-1.1)
[2020-12-22 20:08] LABS: Anion Gap 16 (12-20); Blood Urea Nitrogen 24 mg/dL (9-16); Calcium 8.8 mg/dL (8.4-10.2); Carbon Dioxide 26 mmol/L (22-29); Chloride 104 mmol/L (96-108); Creatinine Clr Calc Pharmacy 32.9; Estimated Glomerular Filt Rate 43; Glucose Random 80 mg/dL (60-115); Potassium 3.7 mmol/L (3.3-5.1); Sodium 142 mmol/L (135-145)
[2020-12-22 20:25] VITALS: BP 172/68; PULSE 54
[2020-12-22 20:28] VITALS: BP 183/79; PULSE 61
[2020-12-22 20:29] LABS: Troponin-I High Sensitivity 85.9 ng/L (<3.5-35.0)
[2020-12-22 20:30] VITALS: BP 177/88; PULSE 78
--- NOTE | 2020-12-22 20:46 | PC.NURSE ---
Orthos, BCX x 2, lactic and Covid obtained and sent by this RN. Per MD, plan to hold ABX until chest CT results are back. VSS at this time. Daughter at bedside. Pt provided with urinal per request.
--- NOTE | 2020-12-22 20:54 | PC.NURSE ---
Pt off to CT on hospital bed.
[2020-12-22 21:04] LABS: COVID-19 Test Negative (Negative)
--- NOTE | 2020-12-22 21:04 | PC.NURSE ---
Med Rec completed at bedside with daughter.
--- NOTE | 2020-12-22 21:51 | PC.NURSE ---
Lactic redrawn and sent.
[2020-12-22 22:00] VITALS: BP 177/70; PULSE 67; RESP 18; TEMP 36.7; O2SAT 98
[2020-12-22 22:12] LABS: Lactic Acid 1.3 mmol/L (0.5-2.0)
== END 2020-12-22 22:44 | disposition home or self-care (01) ==
PROVIDERS: Emergency Provider Emergency Medicine; PCP Internal Medicine
DX: R55 Syncope and collapse (principal); R42 Dizziness and giddiness; R53.1 Weakness; F17.210 Nicotine dependence, cigarettes, uncomplicated; Z20.822 Contact with and (suspected) exposure to COVID-19; Z79.899 Other long term (current) drug therapy; Z71.6 Tobacco abuse counseling
CPT/HCPCS: 36415; 70450; 71045; 71250; 80048; 83605; 84484; 85025; 85610; 87040; 87635; 93005; 96365; 96367; 99284

== ENCOUNTER → 2020-12-30 12:58 | Outpatient (REF) | payer MEDICARE, OTHER, SELFPAY ==
--- NOTE | 2020-12-30 13:02 | CA_ITS ---
Transthoracic Echocardiogram Patient (Last, First, Middle): Josh Abdul W Gender: Male Date of : 1940 Age: 80 Procedure Date: 12/30/2020 Procedure Type: Transthoracic Echocardiogram Location: OP Height: 170.18 cm Weight: 59.88 kg BSA: 1.69 m2 Heart Rate: bpm BP: 122 / 62 mmHg Souvenir Assembler: MAYLIN Manzanares MD: Rajani Mantilla PAINT SPRAYER SANDBLASTER-C Symptoms: I50.21 - Acute systolic (congestive) heart failure Study Quality: Good/Contrast ECG Rhythm: Sinus Conclusions: - The left ventricular systolic function is mildly decreased. The calculated ejection fraction is 51% by biplane method. - Mid to distal anteroseptal wall, basal inferolateral wall appears hypokinetic. - No evidence of apical thrombus. Findings Procedure Information Contrast agent, definity, is being given per protocol without apparent complications. Left Ventricle Normal left ventricular cavity size. There is mildly increased left ventricular wall thickness. The left ventricular systolic function is mildly decreased. The calculated ejection fraction is 51% by biplane method. Mid to distal anteroseptal wall, basal inferolateral wall appears hypokinetic. No evidence of apical thrombus. Prior Study Comparison Changes noted compared to prior study dated: 11/22/2020. Measurements 2D Linear Measurements IVSd: 1.15 0.6-0.9/0.6-1.0 cm LVIDd: 4.17 3.9-5.3/4.2-5.9 cm LVIDd Index: 2.47 2.4-3.2/2.2-3.1 cm/m2 LVIDs: 2.75 2.0-3.6 cm LVPWd: 1.15 0.7-1.1 cm LV Mass: 206.26 67-162/88-224 g LV Mass Index: 122.05 43-95/49-115 g/m2 2D Systolic Function EF 4C: 53.80 >55% EF 2C: 45.80 >55% EF BiP: 51.00 >55% Mitral Valve E'Lateral: 5.98 E'Medial: 5.00 Diastolic Function E'Medial: 5.00 E' Laterial: 5.98 Updated in Other Vendor System with Status of Final Darwin Valadez MD electronically signed on 12/30/2020 4:28:04 PM with status of Final
== END ==
LOC: HO.CARD 12:58
PROVIDERS: PCP Internal Medicine; Visit Provider Nurse Practitioner Family
DX: I50.21 Acute systolic (congestive) heart failure (principal); I42.9 Cardiomyopathy, unspecified
CPT/HCPCS: 93308; 99212; Q9957

== ENCOUNTER 2020-12-31 14:02 | Outpatient (REF) | payer MEDICARE, OTHER, SELFPAY ==
--- NOTE | ~2020-12-31 | PE_ITS ---
EXAMINATION: PET/CT SKULL TO THIGH. CLINICAL INFORMATION: Non-Hodgkin's B-cell lymphoma staging. COMPARISON: CT chest 12/22/2020 TECHNIQUE: Following intravenous administration of 14.3 mCi of F-18 FDG in left antecubital vein, whole-body PET emission scan was obtained. For correlative imaging 3.[address] transmission scan was performed without oral or IV contrast. Baseline serum glucose measures 94mg/dl. DLP: 428 mGy-cm FINDINGS: Skull Base and Neck: On PET imaging there is no abnormal metabolic activity seen in the intracranial brain parenchyma. No abnormal activity seen in the skull base or the neck. Nonspecific mild activity seen along the left floor of the tongue likely related to mastication. No abnormal metabolic activity seen in the neck to suspect any lymph nodes. On CT imaging the brain parenchyma is normal. Bilateral paranasal, ethmoid and sphenoid sinuses are unremarkable. No abnormal findings on the visualized skull base and the brain parenchyma. No abnormal neck mass or lymphadenopathy seen. The airway is widely patent. Chest: Intense metabolic activity seen in the right middle lobe consolidation consistent with inflammatory changes. No abnormal metabolic activity seen in the mediastinum or the axilla. On CT imaging there is a right middle lobe consolidation. Rest of the lungs are expanded and clear. Abdomen and Pelvis: There is moderate dense metabolic activity seen in the right lower quadrant abdomen corresponding to loop of small bowel/terminal ileum with an SUV measuring 5.0 consistent with primary small bowel lesion such as lymphoma. Small focus of metabolic activity seen in the left para-aortic space with an SUV measurement of 3.46 corresponding to a small lymph node measuring 1 cm on axial slice 94/2. There is a focal area of metabolic activity in the left pelvis adjacent to the bladder on slice 55/3 with probable small corresponding lymph node barely visible. No additional abnormal activity seen. On CT there is a moderate segment of small bowel loop likely terminal ileum with diffuse mural thickening on axial images 101 through 73/2. No additional areas of small bowel segment abnormality seen. There are atherosclerotic changes of abdominal aorta. The prostate gland is mildly enlarged. The urinary bladder shows mild anterior bladder wall thickening. MSK: No abnormal metabolic activity seen in the spine. Mild bilateral L5-S1 facet joint arthropathy is noted. PET/PET CT fusion skull to thigh IMPRESSION: Long segment of abnormal metabolic activity involving the distal/terminal ileum with diffuse mural thickening consistent with primary small bowel cancer or lymphoma. There is a solitary abnormal metabolic reactive lymph node in the left para-aortic space. There is focal metabolic activity seen in the left pelvis adjacent to the bladder but no distinct lymph node is visualized. There could be a small lymph node. No additional metabolic activity seen in the abdomen, chest, neck region.
== END 2020-12-31 14:03 | disposition home or self-care (01) ==
LOC: HO.PET 14:02
PROVIDERS: PCP Internal Medicine; Visit Provider Internal Medicine
DX: Z13.89 Encounter for screening for other disorder (principal)

== ENCOUNTER → 2021-01-07 09:17 | Outpatient (REF) | payer MEDICARE, OTHER, SELFPAY ==
--- NOTE | ~2021-01-07 | NM_ITS ---
Lexiscan Myocardial perfusion study Indication: Cardiomyopathy, assess for coronary disease and ischemia Technique: The patient was brought in for a Lexiscan perfusion study on 01/07/2021 and was injected 0.4 mg of Lexiscan intravenously. Within a minute of this injection 25 mCi of sestamibi was given intravenously. Images were obtained using the SPECT gamma camera interlaced with the gating device. Images were obtained in supine position. Resting perfusion study was performed on 01/08/2021. Patient was administered 25 mCi of sestamibi intravenously at rest. Images were then obtained in supine position. Total DLP 89mGy-cm. Images were processed with the software and compared side to side in short axis, horizontal long axis and vertical long axis views. Findings: Raw acquisition was reviewed. The stress perfusion study showed mildly diminished tracer uptake in the inferoapical wall, basal inferolateral wall. There is improvement with CT attenuation correction and hence suggestive of diaphragmatic attenuation artifact. The gated study shows mildly diminished LV systolic function with calculated LVEF of 48%. LV cavity is normal in size. The gated study shows normal wall thickening and contraction of segments. Resting study shows mildly diminished tracer uptake in the basal part of inferior wall. Improvement with CT attenuation correction suggestive of diaphragmatic attenuation artifact. Gating at rest reveals normal wall motion with ejection fraction at 49%. The findings are consistent with small reversible inferoapical defect, likely artifactual. Fixed basal inferior/inferolateral defect likely from diaphragmatic attenuation. AL/AL cardiolite stress test Impression: 1. Myocardial perfusion imaging study shows no evidence of any ischemia or infarction. 2. Gated LVEF is mildly diminished; 48% during stress and 49% during rest. 3. Transient ischemic dilatation not present. EKG component of the test reported separately.
--- NOTE | 2021-01-07 09:22 | CA_ITS ---
Acquisition Time: 2021-01-07 09:19:58 Total Exercise Time: 00:04:30 Test Indications: Screening for CAD Medications: ISOSORBIDE LOSARTAN METOPROLOL BUMETANIDE WARFARIN OMEPRAZOLE LEVOTHYROXINE Protocol: LEXISCAN Max HR: 079 BPM 56% of Pred: 140 BPM Max BP: 142/068 mmHG Max Work Load: 1.0 METS Pharmacological stress test with Lexiscan injection, while marching in place, without anginal symptoms, without arrythmia, with normotensive response to injection, with nondiagnostic EKG for ischemia. Nuclear images pending. Test reviewed with Dr Guillory. Referred By: Darwin Valadez Overread By: GENIA YEE
--- NOTE | 2021-01-07 09:22 | HM_ITS ---
Total monitoring time 13 days and 22 hours. Underlying rhythm is sinus. Minimum heart rate 37/Min. Maximum 110/Min. Average 58/Min. About 11% of the time, rate less than 60/Min. Daytime bradycardia events also noted. No atrial fibrillation or flutter. No pauses or AV blocks. Occasional supraventricular ectopy-burden 0.67%. Short runs noted; longest is 19 beats. Rare ventricular ectopy-burden 0.16%; 15 couplets; 3 short runs-maximum 8 beats. No patient events. T inversions are more prominent in some EKGs than others. Especially during times of bradycardia. MTDD
== END ==
LOC: HO.CARD 09:17
PROVIDERS: Visit Provider Internal Medicine
DX: I42.9 Cardiomyopathy, unspecified (principal); I48.0 Paroxysmal atrial fibrillation
CPT/HCPCS: 78452; 93017; 93246; A9500; J0280; J2785

== ENCOUNTER 2021-01-17 13:06 | Outpatient (REF) | payer MEDICARE, OTHER, SELFPAY ==
--- NOTE | ~2021-01-17 | XR_ITS ---
EXAMINATION: XR CHEST 2 view CLINICAL INFORMATION: Follow up pneumonia. COMPARISON: Previous chest x-ray and chest CT December 2020. TECHNIQUE: 2 views of the chest were obtained. FINDINGS: The cardiac and mediastinal contours are stable. There is airspace disease seen in the right lower lobe. This appears increased from 12/22/2020 exam. The left lung is clear. There are new small bilateral pleural effusions. There are new medical devices or monitors in the left chest wall. Bony structures are unremarkable. XR/XR chest 2V IMPRESSION: Persistent airspace disease at the right lung base, increased from 12/22/2020 exam. New small bilateral pleural effusions.
== END 2021-01-17 13:07 | disposition home or self-care (01) ==
LOC: HO.XRAY 13:06
PROVIDERS: PCP Internal Medicine; Visit Provider Internal Medicine
DX: Z87.01 Personal history of pneumonia (recurrent) (principal)
CPT/HCPCS: 71046

== ENCOUNTER 2021-01-27 11:06 | Outpatient (REF) | payer MEDICARE, OTHER, SELFPAY ==
[2021-01-27 13:08] LABS: INTERNATIONAL NORM RATIO 2.7 (0.9-1.1)
== END 2021-01-27 11:07 | disposition home or self-care (01) ==
LOC: HO.LAB 11:06
PROVIDERS: PCP Internal Medicine; Referring Provider Internal Medicine; Visit Provider Internal Medicine
DX: I42.9 Cardiomyopathy, unspecified (principal); I48.0 Paroxysmal atrial fibrillation; I51.3 Intracardiac thrombosis, not elsewhere classified; I10 Essential (primary) hypertension; I25.10 Atherosclerotic heart disease of native coronary artery without angina pectoris
CPT/HCPCS: 36415; 85610; 99212

== ENCOUNTER → 2021-02-21 08:26 | Outpatient (BNVA) | payer MEDICARE, OTHER, SELFPAY | PROVIDERS: PCP Internal Medicine; Visit Provider Internal Medicine | DX: M48.061 Spinal stenosis, lumbar region without neurogenic claudication (principal); R59.0 Localized enlarged lymph nodes; I10 Essential (primary) hypertension; I48.91 Unspecified atrial fibrillation; I51.3 Intracardiac thrombosis, not elsewhere classified; E03.9 Hypothyroidism, unspecified; Z87.891 Personal history of nicotine dependence | CPT/HCPCS: 99202 ==

== ENCOUNTER 2021-03-13 10:35 | Outpatient (REF) | payer MEDICARE, OTHER, SELFPAY ==
[2021-03-13 12:55] LABS: Appearance Urine CLEAR; Color Urine YELLOW; Glucose Urine UA NEG (NEG); Leukocyte Esterase Urine NEG (NEG); Nitrite Urine NEG (NEG); Urine Blood NEG (NEG); Urine Ketones NEG (NEG); Urine Protein 2+ MG/DL (NEG-TRACE)
[2021-03-13 13:54] LABS: RBC Urine 0-2 /HPF (0); Urine Talc Crystals TRACE /LPF; WBC Urine 0 /HPF (0-4)
== END 2021-03-13 10:36 | disposition home or self-care (01) ==
LOC: HO.LAB 10:35
PROVIDERS: PCP Radiology Diagnostic Radiology; Visit Provider Internal Medicine
DX: D72.829 Elevated white blood cell count, unspecified (principal)
CPT/HCPCS: 81001; 81003; 87086

== ENCOUNTER → 2021-04-28 11:10 | Outpatient (BNVA) | payer MEDICARE, OTHER, SELFPAY | PROVIDERS: PCP Radiology Diagnostic Radiology; Visit Provider Internal Medicine | DX: M48.061 Spinal stenosis, lumbar region without neurogenic claudication (principal); M46.96 Unspecified inflammatory spondylopathy, lumbar region | CPT/HCPCS: 99212 ==

== ENCOUNTER 2021-05-24 10:40 | Outpatient (REF) | payer MEDICARE, OTHER, SELFPAY ==
--- NOTE | ~2021-05-24 | XR_ITS ---
EXAMINATION: XR CHEST CLINICAL INFORMATION: Cough. COMPARISON: Chest 01/17/2021 TECHNIQUE: 2 views of the chest were obtained. FINDINGS: The lungs are fairly well-expanded with patchy opacity both lung bases likely atelectasis or scarring. Rest of lungs are well-expanded and clear. There is no consolidation. The heart size and pulmonary vascularity is normal. No gross bony abnormality. XR/XR chest 2V IMPRESSION: Bibasilar patchy opacity likely chronic scarring or atelectasis. Infiltrate is considered less likely but cannot be excluded. There was airspace disease in the right lung base on previous study 01/17/2021.
[2021-05-24 13:13] LABS: MANUAL DIFF FLAG NO
[2021-05-24 13:19] LABS: Eosinophils Absolute Auto 0.1 X10*3/uL (0.0-0.4); Eosinophils Percent Auto 1.5 % (0-4); Hemoglobin 14.6 g/dl (14.0-18.0); Imm Gran Abs Auto 0.03 X10*3/uL (0.00-0.03); Imm Gran Pct Auto 0.9 % (0.0-0.4); Lymphocytes Absolute Auto 0.3 X10*3/uL (1.2-4.9); Lymphocytes Percent Auto 7.9 % (20-40); Mean Corpuscular HGB Conc 33.2 g/dl (31.0-36.0); Mean Corpuscular Hemoglobin 29.6 pg (27.0-33.0); Mean Corpuscular Volume 89.2 fL (80.0-98.0); Mean Platelet Volume 10.1 fL (9.4-12.4); Monocytes Absolute Auto 0.3 X10*3/uL (0.1-1.2); Monocytes Percent Auto 7.6 % (2-11); Neutrophils Absolute Auto 2.7 x10*3/uL (2.0-8.3); Neutrophils Percent Auto 82.1 % (45-73); Platelet Count 231 X10*3/uL (160-400); Red Blood Count 4.93 X10*6/uL (4.60-5.80); Red Cell Distribution Width 14.3 % (11.0-16.0); White Blood Count 3.3 X10*3/uL (4.8-10.8)
[2021-05-24 13:20] LABS: Appearance Urine CLEAR; Color Urine YELLOW; Glucose Urine UA NEG (NEG); Leukocyte Esterase Urine NEG (NEG); Nitrite Urine NEG (NEG); Specific Gravity - Urine >= 1.030 (1.005-1.025); UACC Culture Trigger NO; Urine Blood NEG (NEG); Urine Ketones NEG (NEG); Urine Protein 3+ MG/DL (NEG-TRACE)
[2021-05-24 13:46] LABS: Granular Casts Urine 0-2 /LPF; Hyaline Casts Urine 0-2 /LPF; RBC Urine 0 /HPF (0); Squamous Epithelial Cell Urine TRACE /LPF; WBC Urine 0-2 /HPF (0-4)
[2021-05-24 13:57] LABS: Alanine Aminotransferase 12 U/L (0-40); Albumin Level 3.3 g/dL (3.5-5.0); Alkaline Phosphatase 94 U/L (39-117); Anion Gap 14 (12-20); Aspartate Amino Transferase 28 U/L (5-37); Bilirubin Total 0.4 mg/dL (0.0-1.0); Blood Urea Nitrogen 22 mg/dL (9-16); Calcium 8.6 mg/dL (8.4-10.2); Carbon Dioxide 23 mmol/L (22-29); Chloride 109 mmol/L (96-108); Estimated Glomerular Filt Rate 44; Glucose Random 96 mg/dL (60-115); Potassium 4.1 mmol/L (3.3-5.1); Sodium 142 mmol/L (135-145); Total Protein 6.3 g/dL (6.5-8.0)
== END 2021-05-24 10:41 | disposition home or self-care (01) ==
LOC: HO.HMGCLDS 10:40
PROVIDERS: Visit Provider Internal Medicine
DX: Z13.89 Encounter for screening for other disorder (principal)
CPT/HCPCS: 36415; 71046; 80053; 81001; 85025

== ENCOUNTER 2021-05-26 14:18 | Inpatient (IN) | payer MEDICARE, OTHER, SELFPAY ==
--- NOTE | ~2021-05-26 | CT_ITS ---
EXAMINATION: CT CHEST WITHOUT CONTRAST CLINICAL INFORMATION: Pulmonary fibrosis. COMPARISON: Previous chest CT, most recent December 2020 and chest x-rays, most recent 05/26/2021. TECHNIQUE: Multidetector volumetric CT imaging of the chest was done. Axial MIP volume rendering provided. Sagittal and coronal reformatted images were obtained. This CT examination was performed using dose optimization techniques as appropriate, variously including the following: *Automated exposure control *Adjustment of mA and/or kV according to patient size (this includes techniques or standardized protocols for targeted exams where dose is matched to indication/reason for exam; i.e. extremities or head) *Use of iterative reconstruction technique DLP: 128 mGy-cm FINDINGS: LUNGS: There are new peripheral or subpleural areas of ground-glass attenuation, left greater than right. There is new denser peripheral or subpleural scarring or subsegmental atelectasis in the left lower lobe and right lower lobe. There is residual scarring or subsegmental atelectasis seen in the lateral right lower lobe in area of previous pneumonia December 2020. No endobronchial or endotracheal lesion is seen. There are small pulmonary nodules or micronodules primarily in the upper lobes. There is a 3 x 5 mm right middle lobe nodule axial image 381 series 7. This is difficult to compare with December 2020 exam is dense consolidation and air bronchograms are seen in this region. MEDIASTINUM: There is severe atherosclerotic disease. The heart is upper normal in size. There is coronary artery and aortic valve calcification. There is a trace pericardial effusion or thickening. No enlarged hilar or mediastinal lymph nodes. PLEURA: There is no pleural effusion. No pleural mass or thickening. AXILLA: No lymphadenopathy. UPPER ABDOMEN: Unremarkable. OSSEOUS STRUCTURES: There are degenerative changes of the spine. CT/CT chest wo con IMPRESSION: New peripheral or subpleural areas of ground-glass attenuation, greatest in the left upper and left lower lobe and linear subpleural scarring or atelectasis, greatest in the bilateral lower lobes. 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 Improved right middle lobe pneumonia from most recent chest CT December 2020. Small pulmonary nodules. Largest pulmonary nodule is a 3 x 5 mm right middle lobe nodule, difficult to compare with 2020 exam. Fleischner guidelines were followed.
--- NOTE | ~2021-05-26 | XR_ITS ---
EXAMINATION: XR CHEST CLINICAL INFORMATION: Shortness of breath, low oxygenation COMPARISON: CT chest noncontrast 12/22/2020, this PET/CT 12/31/2020, chest radiographs 05/24/2021, 01/17/2021 TECHNIQUE: Portable upright AP view of the chest was obtained. FINDINGS: Opacity and volume loss right middle lobe is decreased from prior studies. Patchy airspace opacity left lower zone is stable from recent exam 05/24/2021. There is no interval lobar or segmental airspace consolidation or interval groundglass opacity. The vascularity is normal. There is no pneumothorax. Skin fold artifact is seen overlying the right chest. The cardiac and hilar and mediastinal contours and visualized bony structures are unremarkable. XR/XR chest 1V IMPRESSION: 1. Right middle lobe opacity and volume loss decreased from prior studies. 2. Patchy groundglass opacity left lower zone stable from 05/24/2021.
[2021-05-26 14:37] VITALS: BP 123/81; BP 126/76; PULSE 79; PULSE 87; RESP 26; TEMP 37.1; O2SAT 95; BMI 24.3
--- NOTE | 2021-05-26 14:49 | ECG_ITS ---
Test Reason : dyspnea Blood Pressure : / mmHG Vent. Rate : 068 BPM Atrial Rate : 068 BPM P-R Int : 176 ms QRS Dur : 090 ms QT Int : 352 ms P-R-T Axes : 059 -68 125 degrees QTc Int : 374 ms Normal sinus rhythm with sinus arrhythmia Left anterior fascicular block Minimal voltage criteria for LVH, may be normal variant ( Gustavo product ) Cannot rule out Inferior infarct (masked by fascicular block?) , age undetermined Possible Anterior infarct (cited on or before 16-NOV-2020) T wave abnormality, consider lateral ischemia Abnormal ECG When compared with ECG of 22-DEC-2020 19:05, Significant changes have occurred Referred By: Clement Cullen Electronically Signed By:Rolando Lou
--- NOTE | 2021-05-26 14:52 | ED_ITS ---
HPI - SOB/Dyspnea General Chief Complaint: Dyspnea Stated Complaint: low O2 sat Time Seen by Provider: 05/26/21 14:48 Source: patient and EMS Mode of arrival: EMS Limitations: no limitations History of Present Illness HPI Narrative: 81-year-old male came in for evaluation of shortness of breath, generalized weakness, and a low oxygen. Patient recently was diagnosed with COVID, patient had 2 Pfizer vaccination and booster Moderna vaccination, patient is on chemotherapy for lymphoma. symptoms is worsening with exertion, SOB is associated with coughing with clear sputum, no fever or chills. Related Data Home Medications Medication Instructions Recorded Confirmed levothyroxine 75 mcg tablet 75 mcg PO DAILY 07/24/20 04/28/21 omeprazole 20 mg capsule,delayed 20 mg PO DAILY 07/24/20 04/28/21 release melatonin 2 mg PO DAILY PRN 02/07/21 04/28/21 nifedipine 30 mg tablet,extended 30 mg PO DAILY 04/17/21 04/28/21 release benzonatate 100 mg capsule 1 cap PO TID 05/26/21 cefuroxime axetil 500 mg tablet 1 tab PO BID 05/26/21 warfarin 5 mg tablet 1 tab PO DAILY 05/26/21 Previous Rx's Medication Instructions Recorded losartan 50 mg tablet 50 mg PO BID 90 Days #180 tab 12/23/20 metoprolol tartrate 100 mg tablet 100 mg PO BID 90 Days #180 tab 12/23/20 apixaban 5 mg tablet (Eliquis) 5 mg PO BID #180 tab 01/27/21 Allergies Allergy/AdvReac Type Severity Reaction Status Date / Time No Known Allergies Allergy Mild NONE Verified 04/28/21 11:25 Review of Systems Review of Systems: all other systems are reviewed and are negative Constitutional: Reports as per HPI and Reports no additional constitutional complaints Eyes: Reports as per HPI and Reports no additional eye complaints Reports system reviewed and no additional complaints, except as documented Cardiovascular: Reports as per HPI and Reports no additional cardiovascular complaints Respiratory: Reports as per HPI and Reports no additional respiratory complaints Gastrointestinal: Reports as per HPI and Reports no additional gastrointestinal complaints Genitourinary: Reports no additional female genitourinary complaints Musculoskeletal: Reports no additional musculoskeletal complaints Skin/Breast: Reports system reviewed and no additional complaints, except as docu Psychiatric: Reports no additional psychiatric complaints Endocrine: Reports no additional endocrine complaints Hematologic/Lymphatic: Reports no additional hematologic/lymphatic complaints Allergic/Immunologic: Reports no additional allergic/immunologic complaints Reports system reviewed and no additional complaints, except as documented and Reports Abnormal speech present [facility] Past Medical History Medical History Apical mural thrombus Arthritis Atrial fibrillation Basal cell carcinoma Degenerative lumbar spinal stenosis Hiatal hernia HTN (hypertension) Hypothyroidism Leg edema Lumbar spondylitis Lymphadenopathy Rosacea Surgical History Hx of biopsy Hx of colonoscopy Hx of tonsillectomy Hx of total knee replacement Family History Family History Father Heart disease Social History Social History Household Members: Spouse Housing: House Alcohol intake: former Patient Tobacco Use Status: Former Tobacco user Quit Date: 1970 Tobacco use type: Cigarette Cigarette Packs Per Day: 1 Advance Directives: Yes Advance Directives Information Provided: No Advance Directives on File: No service: Yes Current occupational status: retired Physical Exam Vital Signs: Vital Signs: Last Vital Signs Temp 102.4 F H 05/26/21 15:50 Pulse 72 05/26/21 15:50 Resp 24 H 05/26/21 15:50 BP 174/76 H 05/26/21 15:50 Pulse Ox 98 05/26/21 15:50 Oxygen Flow Rate 3 05/26/21 14:37 BMI result Body Mass Index 24.3 vital signs have been reviewed as appeared to be correct. Blood pressure normal. Heart rate normal. Respiration rate normal. Temperature normal. Oxygen saturation normal. Appearance: Alert. Oriented X3. No acute distress. Head: Normal external exam. Normocephalic. Atraumatic. No Duncan signs noted. No raccoon eyes noted Eyes: PERRLA. EOMI. Conjunctiva and sclera normal. Eyelids normal. ENT: TM's Normal. Pharynx normal. Uvula midline. Moist mucous membranes. No trismus noted. No drooling noted. No muffled voice noted. Neck: Normal inspection. Neck supple. FROM. No adenopathy. Thyroid Normal. No meningeal signs. No neck mass noted. CVS: Normal heart rate and rhythm. Heart sound normal. No murmurs noted. Pulses normal throughout. Respiratory: No respiratory distress. Painless inspiration. Breath sounds normal. No wheezes/rales/rhonchi noted. Chest nontender. No accessory muscle usage noted or decreased air movement noted. Abdomen: Soft and nontender. Bowel sounds normal in all 4 quadrants. No distention noted. No organomegaly noted. No visible injury noted. Back: No CVA tenderness. Full range of motion noted. Skin: Skin warm and dry. Normal skin color. Normal skin turgor. No rashes/lesions/lacerations noted. Extremities: No lower extremity edema. Extremities exhibit normal range of motion. Extremities nontender. Neuro: Oriented X 3. Cranial nerve exam: II-XII are grossly intact No motor deficit. No sensory deficit. Reflexes normal. Course Course Course Narrative: Assessment and plan. [age] year foam a chemotherapy, recently diagnosed with COVID-19 infection came in with hypoxia and shortness of breath, patient has been on supplemental 3 L of nasal cannula oxygen with O2 sat of 95%, patient also possibly have bacterial pneumonia in the right middle lobe, does patient meet criteria for SIRS, culture/ lactic acid / IV fluids/antibiotic was administered. Case signed out to to follow-up and admit the patient. MDM - SOB/Dyspnea Medical Records Attestation: I reviewed the patient's medical records. Lab Data Result diagrams: 05/26/21 15:55 05/26/21 15:55 Imaging Data Chest x-ray: Attestation: I personally reviewed and interpreted this imaging study as follows: Radiologist's impression: 1. Right middle lobe opacity and volume loss decreased from prior studies. 2. Patchy groundglass opacity left lower zone stable from 05/24/2021. Discharge Plan Discharge Clinical Impression: Community acquired pneumonia, COVID-19 virus infection Patient Disposition: Admitted As Inpatient Prescriptions: No Action losartan 50 mg tablet 50 mg PO BID 90 Days Qty: 180 RF: 1 metoprolol tartrate 100 mg tablet 100 mg PO BID 90 Days Qty: 180 RF: 1 levothyroxine 75 mcg tablet 75 mcg PO DAILY RF: 0 omeprazole 20 mg capsule,delayed release(DR/EC) 20 mg PO DAILY RF: 0 melatonin 2 mg PO DAILY PRN (Reason: Insomnia) RF: 0 nifedipine 30 mg Tablet Extended Release 30 mg PO DAILY RF: 0 benzonatate 100 mg capsule 1 cap PO TID RF: 0 cefuroxime axetil 500 mg tablet 1 tab PO BID RF: 0 warfarin 5 mg tablet 1 tab PO DAILY RF: 0 Eliquis 5 mg tablet 5 mg PO BID Qty: 180 RF: 4
[2021-05-26 15:50] VITALS: BP 174/76; PULSE 72; RESP 24; TEMP 39.1; O2SAT 98
[2021-05-26 16:02] LABS: MANUAL DIFF FLAG NO
[2021-05-26 16:04] LABS: Basophils Percent Auto 0.2 % (0-2); Eosinophils Percent Auto 0.5 % (0-4); Hematocrit 41.9 % (42.0-52.0); Hemoglobin 13.7 g/dl (14.0-18.0); Imm Gran Abs Auto 0.03 X10*3/uL (0.00-0.03); Imm Gran Pct Auto 0.7 % (0.0-0.4); Lymphocytes Absolute Auto 0.2 X10*3/uL (1.2-4.9); Lymphocytes Percent Auto 4.1 % (20-40); Mean Corpuscular HGB Conc 32.7 g/dl (31.0-36.0); Mean Corpuscular Hemoglobin 29.1 pg (27.0-33.0); Mean Platelet Volume 10.3 fL (9.4-12.4); Monocytes Absolute Auto 0.2 X10*3/uL (0.1-1.2); Monocytes Percent Auto 5.6 % (2-11); Neutrophils Absolute Auto 3.7 x10*3/uL (2.0-8.3); Neutrophils Percent Auto 88.9 % (45-73); Platelet Count 228 X10*3/uL (160-400); Red Blood Count 4.71 X10*6/uL (4.60-5.80); Red Cell Distribution Width 14.3 % (11.0-16.0); White Blood Count 4.1 X10*3/uL (4.8-10.8)
[2021-05-26 16:12] LABS: Lactic Acid 1.8 mmol/L (0.5-2.0)
[2021-05-26] MEDS: 0.9 % Sodium Chloride 1,000 ML 999 ML IV (16:15)
[2021-05-26 16:16] LABS: IDNOW Serial# 9DD0AD1C
[2021-05-26 16:18] LABS: Alanine Aminotransferase 14 U/L (0-40); Alkaline Phosphatase 85 U/L (39-117); Anion Gap 15 (12-20); Aspartate Amino Transferase 36 U/L (5-37); Bilirubin Direct 0.2 mg/dL (0.0-0.5); Bilirubin Total 0.5 mg/dL (0.0-1.0); Blood Urea Nitrogen 22 mg/dL (9-16); Calcium 8.4 mg/dL (8.4-10.2); Carbon Dioxide 22 mmol/L (22-29); Chloride 110 mmol/L (96-108); Creatinine Clr Calc Pharmacy 46.3; Estimated Glomerular Filt Rate 53; Glucose Random 92 mg/dL (60-115); Lipase 49 U/L (8-78); Sodium 143 mmol/L (135-145); Total Protein 5.9 g/dL (6.5-8.0)
[2021-05-26 16:21] LABS: COVID-19 Test Positive (Negative)
[2021-05-26 16:24] LABS: B Type Natriuretic Peptide 461 pg/mL (<100); Troponin-I High Sensitivity 65.1 ng/L (<3.5-35.0)
[2021-05-26] MEDS: cefTRIAXone sodium 1 GM in 0.9 % Sodium Chloride 50 ML IV (16:31)
--- NOTE | 2021-05-26 17:05 | PHA.MEDREC ---
Pharmacy Consult ? Medication Reconciliation Pharmacy has completed the medication reconciliation. Spoke with daughter who knew all medications. Pt took all AM meds. The Nifedipine was on hold 05/24-05/26, started antibiotic 05/23, daughter holding omeprazole while on antibiotic.
--- NOTE | 2021-05-26 17:09 | P.HPHOSP_ITS ---
History of Present Illness Date of Service: 05/26/21 <Gayatri Thompson NP - Last Filed: 05/26/21 17:24> Attending physician on admission: Twyla Borges <Gayatri Thompson NP - Last Filed: 05/26/21 17:24> Chief Complaint: Shortness of breath <Gayatri Thompson NP - Last Filed: 05/26/21 17:24> 81-year-old man presented to the ER with complaints of worsening shortness of breath over the last several days. He reports that he was diagnos ed with COVID-19 at the end of April however has continued to have worsening shortness of breath cough with little phlegm. He denied fever, chills, nausea, vomiting, diarrhea. Reported a fairly decent appetite. His also contracted COVID. He has been currently undergoing chemotherapy for lymphoma. He was vaccinated with Pfizer and had the Moderna booster. In the ER he was noted to have a fever of 102.4. He was given a dose of Rocephin, 1 L of IV fluid and azithromycin. He will be admitted for further management and treatment of viral sepsis secondary to COVID-19. <Gayatri Thompson NP - Last Filed: 05/26/21 17:24> Review of Systems Review of Systems: Denies any recent fever chills or decrease in appetite respiratory See HPI cardiovascular denies chest pain gastrointestinal denies any dysphagia abdominal pain nausea vomiting or diarrhea genitourinary denies any dysuria frequency or hematuria musculoskeletal denies any joint pain or swelling neuropsych denies any weakness or seizures all other systems reviewed are negative <Gayatri Thompson NP - Last Filed: 05/26/21 17:24> [facility] Medical History: Medical History Apical mural thrombus Arthritis Atrial fibrillation Basal cell carcinoma Degenerative lumbar spinal stenosis Hiatal hernia HTN (hypertension) Hypothyroidism Leg edema Lumbar spondylitis Lymphadenopathy Rosacea <Gayatri Thompson NP - Last Filed: 05/26/21 17:24> Family History: Family History Father Heart disease <Gayatri Thompson NP - Last Filed: 05/26/21 17:24> Surgical History: Surgical History Hx of biopsy Hx of colonoscopy Hx of tonsillectomy Hx of total knee replacement <Gayatri Thompson NP - Last Filed: 05/26/21 17:24> Social History: Social History Household Members: Spouse Housing: House Alcohol intake: former Patient Tobacco Use Status: Former Tobacco user Quit Date: 1970 Tobacco use type: Cigarette Cigarette Packs Per Day: 1 Advance Directives: Yes Advance Directives Information Provided: No Advance Directives on File: No service: Yes Current occupational status: retired <Gayatri Thompson NP - Last Filed: 05/26/21 17:24> Meds Allergies/Adverse reactions: Allergies Allergy/AdvReac Type Severity Reaction Status Date / Time No Known Allergies Allergy Mild NONE Verified 04/28/21 11:25 <Gayatri Thompson NP - Last Filed: 05/26/21 17:24> Active Medications: Current Medications Acetaminophen (Acetaminophen 325 Mg Tablet) 650 mg PO Q6H PRN PRN Reason: Pain, Mild (Pain Scale 1-3) Dexamethasone Sodium Phosphate (Dexamethasone Sod Phosphate 4 Mg/Ml Vial) 6 mg IVPUSH DAILY ROCKY Azithromycin 500 mg/ Sodium (Chloride) 250 mls @ 125 mls/hr IV ONCE ONE Stop: 05/26/21 18:01 Ondansetron HCl (Ondansetron Hcl 4 Mg/2 Ml Vial) 4 mg IVPUSH Q8H PRN PRN Reason: Nausea and Vomiting Pharmacy Consult (Consult Rx Perform Med Rec) 1 each MISCELLANE ONCE PRN PRN Reason: Consult order Sodium Chloride (0.9 % Sodium Chloride Flush 3 Ml Syringe) 3 ml IVFLUSH QSHIFT ROCKY <Gayatri Thompson NP - Last Filed: 05/26/21 17:24> Home medications: Home Medications Medication Instructions Recorded Confirmed Last Taken Type levothyroxine 75 mcg tablet 75 mcg PO DAILY@62907/24/20 05/26/21 05/26/21 History omeprazole 20 mg capsule,delayed 20 mg PO DAILY@0630 07/24/20 05/26/21 05/26/21 History release nifedipine 30 mg tablet,extended 30 mg PO DAILY 04/17/21 05/26/21 05/26/21 History release ascorbic acid (vitamin C) 500 mg 500 mg PO DAILY 05/26/21 05/26/21 05/26/21 History tablet atorvastatin 80 mg tablet 1 tab PO BEDTIME 05/26/21 05/26/21 05/25/21 History benzonatate 100 mg capsule 1 cap PO TID PRN 05/26/21 05/26/21 Unknown History bumetanide 1 mg tablet 1 tab PO BID PRN 05/26/21 05/26/21 Unknown History cefuroxime axetil 500 mg tablet 1 tab PO BID 05/26/21 05/26/21 05/26/21 History multivitamin 1 tab PO DAILY 05/26/21 05/26/21 05/26/21 History ondansetron 4 mg disintegrating 4 mg PO Q6H PRN 05/26/21 05/26/21 Unknown History tablet <Gayatri Thompson NP - Last Filed: 05/26/21 17:24> Physical Exam Vital Signs and Narrative: Vital Signs: Last Vital Signs Temp 102.4 F H 05/26/21 15:50 Pulse 72 05/26/21 15:50 Resp 24 H 05/26/21 15:50 BP 174/76 H 05/26/21 15:50 Pulse Ox 98 05/26/21 15:50 Oxygen Flow Rate 3 05/26/21 14:37 BMI result Body Mass Index 24.3 <Gayatri Thompson NP - Last Filed: 05/26/21 17:24> Appearing in no acute distress head is normocephalic atraumatic eyes pupils are PERRLA sclera is anicteric mouth throat mucous membranes are intact and moist neck is supple no lymphadenopathy, no JVD noted lungs normal expansion heart regular rate rhythm, clear S1, S2 positive bowel sounds, abdomen is soft, nontender neuro patient is alert x3, no focal deficits <Gayatri Thompson NP - Last Filed: 05/26/21 17:24> Results Labs CBC and Chem 7: : 05/26/21 15:55 05/26/21 15:55 <Gayatri Thompson NP - Last Filed: 05/26/21 17:24> Labs: Laboratory Results - last 24 hr 05/26/21 05/26/21 05/26/21 15:55 15:55 15:55 MCV 89.0 MCH 29.1 MCHC 32.7 RDW 14.3 Plt Count 228 MPV 10.3 Immature Gran % (Auto) 0.7 H Neut % (Auto) 88.9 H Lymph % (Auto) 4.1 L [place] % (Auto) 5.6 Eos % (Auto) 0.5 Baso % (Auto) 0.2 Lymph # (Auto) 0.2 L [place] # (Auto) 0.2 Eos # (Auto) 0.0 Baso # (Auto) 0.0 Abs Immat Gran (auto) 0.03 Absolute Neuts (auto) 3.7 Absolute Nucleated RBC 0.000 Nucleated RBC % (auto) 0.0 Anion Gap 15 Estim Creat Clear Calc 46.3 Estimated GFR 53 Random Glucose 92 Lactic Acid Calcium 8.4 Total Bilirubin 0.5 Direct Bilirubin 0.2 AST 36 ALT 14 Alkaline Phosphatase 85 Troponin I High Sens 65.1 H B-Natriuretic Peptide Total Protein 5.9 L Albumin 3.0 L Lipase 49 COVID-19 (WILLIAM) COVID-19 Clin Com 05/26/21 05/26/21 05/26/21 15:55 15:55 15:55 MCV MCH MCHC RDW Plt Count MPV Immature Gran % (Auto) Neut % (Auto) Lymph % (Auto) [place] % (Auto) Eos % (Auto) Baso % (Auto) Lymph # (Auto) [place] # (Auto) Eos # (Auto) Baso # (Auto) Abs Immat Gran (auto) Absolute Neuts (auto) Absolute Nucleated RBC Nucleated RBC % (auto) Anion Gap Estim Creat Clear Calc Estimated GFR Random Glucose Lactic Acid 1.8 Calcium Total Bilirubin Direct Bilirubin AST ALT Alkaline Phosphatase Troponin I High Sens B-Natriuretic Peptide 461 H Total Protein Albumin Lipase COVID-19 (WILLIAM) Positive A COVID-19 Clin Com See Note <Gayatri Thompson NP - Last Filed: 05/26/21 17:24> Imaging Radiologist's Impressions: Impressions Chest X-Ray 05/26/21 14:56 IMPRESSION: 1. Right middle lobe opacity and volume loss decreased from prior studies. 2. Patchy groundglass opacity left lower zone stable from 05/24/2021. <Gayatri Thompson NP - Last Filed: 05/26/21 17:24> Assessment and Plan (1) COVID-19 virus infection: Status: Acute <Gayatri Thompson NP - Last Filed: 05/26/21 17:24> 81 year old man admitted with COVID pneumonia Viral sepsis. Secondary to COVID pneumonia Fever, tachypnea Follow blood cultures Start Decadron Id consult Supplemental oxygen Mucinex for dry cough Supportive care Hypothyroidism Continue levothyroxine History of lymphoma Currently on chemotherapy treatments History of atrial fibrillation Continue metoprolol and apixaban Hypertension continue losartan, metoprolol, nifedipine DVT prophylaxis with apixaban Attending Dr. Borges <Gayatri Thompson NP - Last Filed: 05/26/21 17:24> Quality Stroke Does the patient have a stroke diagnosis?: No <Gayatri Thompson NP - Last Filed: 05/26/21 17:24> VTE Prior VTE?: No <Gayatri Thompson NP - Last Filed: 05/26/21 17:24> VTE Risk Level:: Medical - moderate - high <Gayatri Thompson NP - Last Filed: 05/26/21 17:24> VTE Device Contraindication: Treatment Not Indicated <Gayatri Thompson NP - Last Filed: 05/26/21 17:24> VTE Drug Contraindication: N/A - Med Ordered <Gayatri Thompson NP - Last Filed: 05/26/21 17:24>
[2021-05-26] MEDS: Azithromycin 500 MG in 0.9 % Sodium Chloride 250 ML 125 MG IV (17:26)
[2021-05-26] MEDS: dexAMETHasone sod phosphate 4 MG/ML VIAL 6 MG IVPUSH (17:26)
[2021-05-26 17:39] LABS: Appearance Urine CLEAR; Color Urine YELLOW; Glucose Urine UA NEG (NEG); Leukocyte Esterase Urine NEG (NEG); Nitrite Urine NEG (NEG); PH 5.5 (5.0-8.0); Specific Gravity - Urine 1.025 (1.005-1.025); UACC Culture Trigger NO; Urine Blood 1+ (NEG); Urine Ketones 5 MG/DL (NEG); Urine Protein 3+ MG/DL (NEG-TRACE)
--- NOTE | 2021-05-26 17:46 | PM.EVENT ---
Event Note Date of Service: 05/27/21 Event Note: This patient is seen and examined with APC. patient is having shortness of breath, some cough from more than week as per the patient. unclear total duration of symptoms. denies any chest pain or abdominal pain or nausea vomiting feels generally weak he says he also had diarrhea but resolved Lab imaging, EKG reviewed- has leukopenia and lymphopenia. possibleCKD stage 3 chest imaging finding seems slightly better than before EKG unchanged troponin chronically elevated probably related to CKD, also COVID might contributing patient stress test in December 28 was negative Physical exam: Appearance: Alert.? Oriented X3.? not in distress.? Eyes: Pupils equal, round and reactive to light.? Sclera nonicteric.? ENT: Pharynx normal.? Moist mucous membranes. cvs: rrr, [id number] , no murmur res: air entry seems slightly diminished at bases, has few scattered rhonchi otherwise no wheezing. abd: no rebound or guarding ,nt, bs present. ext pulses present , no cyanosis . neuro: axo3 , nonfocal. assessment and plan coordinated in APCs note, Agree with the plan in addition: Coordinated in H&P note Viral sepsis.? Secondary to COVID pneumonia continue dexamethasone, oxygen support, Robitussin id evaluation
[2021-05-26 17:48] LABS: Bacteria Urine TRACE /LPF; RBC Urine 0-2 /HPF (0); Squamous Epithelial Cell Urine TRACE /LPF; WBC Urine 0 /HPF (0-4)
[2021-05-26 18:22] VITALS: BP 166/87; PULSE 76; RESP 20; TEMP 38.2; O2SAT 97
[2021-05-26 19:57] VITALS: BP 186/86; PULSE 80; RESP 26; TEMP 37.2; O2SAT 97
[2021-05-26] MEDS: Metoprolol Tartrate 100 MG TABLET PO (20:38)
[2021-05-26] MEDS: Losartan Potassium 50 MG TABLET PO (20:38)
[2021-05-26] MEDS: Atorvastatin Calcium 80 MG TABLET PO (20:38)
[2021-05-26] MEDS: Apixaban 5 MG TABLET PO (21:19)
[2021-05-27 00:33] VITALS: BP 171/77; PULSE 56; RESP 14; TEMP 36.6; O2SAT 97
[2021-05-27 04:42] VITALS: BP 199/108; PULSE 60; RESP 21; O2SAT 93
--- NOTE | 2021-05-27 04:59 | PC.NURSE ---
Patient's blood pressure was elevated at 199/108. Hospitalist notified and he wants patient to receive his nifedipine early. Patient given medication off schedule per
[2021-05-27 05:49] VITALS: BP 177/95; PULSE 63; RESP 18; O2SAT 96
[2021-05-27] MEDS: NIFEdipine ER 30 MG TAB.ER.24 PO (05:52)
[2021-05-27] MEDS: Omeprazole 20 MG CAPSULE.DR PO (05:52)
[2021-05-27] MEDS: Levothyroxine Sodium 75 MCG TABLET PO (05:52)
[2021-05-27 07:17] LABS: Hematocrit 40.9 % (42.0-52.0); Hemoglobin 13.3 g/dl (14.0-18.0); Imm Gran Abs Auto 0.03 X10*3/uL (0.00-0.03); Imm Gran Pct Auto 1.5 % (0.0-0.4); Lymphocytes Absolute Auto 0.1 X10*3/uL (1.2-4.9); Lymphocytes Percent Auto 6.9 % (20-40); MANUAL DIFF FLAG SCAN; Mean Corpuscular HGB Conc 32.5 g/dl (31.0-36.0); Mean Corpuscular Volume 89.1 fL (80.0-98.0); Mean Platelet Volume 10.3 fL (9.4-12.4); Monocytes Absolute Auto 0.2 X10*3/uL (0.1-1.2); Monocytes Percent Auto 10.9 % (2-11); Neutrophils Absolute Auto 1.6 x10*3/uL (2.0-8.3); Neutrophils Percent Auto 80.7 % (45-73); Platelet Count 220 X10*3/uL (160-400); Red Blood Count 4.59 X10*6/uL (4.60-5.80); Red Cell Distribution Width 14.3 % (11.0-16.0); SCAN SMEAR FLAG 1
[2021-05-27 07:41] LABS: Anion Gap 12 (12-20); Blood Urea Nitrogen 22 mg/dL (9-16); Calcium 8.2 mg/dL (8.4-10.2); Carbon Dioxide 23 mmol/L (22-29); Chloride 111 mmol/L (96-108); Creatinine Clr Calc Pharmacy 50.6; Estimated Glomerular Filt Rate 59; Glucose Random 142 mg/dL (60-115); Lactate Dehydrogenase 282 U/L (118-273); Potassium 4.2 mmol/L (3.3-5.1); Sodium 142 mmol/L (135-145)
[2021-05-27 07:44] LABS: SLIDE REVIEW VERIFIED
[2021-05-27 08:03] LABS: Ferritin 1214 ng/mL (20-250)
--- NOTE | 2021-05-27 08:40 | PC.NURSE ---
pt sleeping in no acute resp distress. he has supplemental 02 nc .
[2021-05-27] MEDS: dexAMETHasone sod phosphate 4 MG/ML VIAL 6 MG IVPUSH (09:24)
[2021-05-27] MEDS: Multivitamin TABLET 1 TAB PO (09:25)
[2021-05-27] MEDS: Metoprolol Tartrate 100 MG TABLET PO ×2 (09:26→21:01)
[2021-05-27] MEDS: Ascorbic Acid 500 MG TABLET PO (09:26)
[2021-05-27] MEDS: 0.9 % Sodium Chloride Flush 3 ML SYRINGE IVFLUSH ×2 (09:27→23:44)
[2021-05-27] MEDS: Apixaban 5 MG TABLET PO ×2 (09:27→21:01)
[2021-05-27] MEDS: Losartan Potassium 50 MG TABLET PO ×2 (09:27→21:12)
[2021-05-27 09:34] VITALS: BP 189/87; PULSE 68; RESP 16; O2SAT 91
--- NOTE | 2021-05-27 10:26 | PC.NURSE ---
when awake pt requires increased supplemental support. he reports feeling better this am. Urine output >400ml this am. Nausea is at baseline. he is sipping po fluids and was offered toast. he tolerated po meds this am
--- NOTE | 2021-05-27 11:06 | MHC.CM.PN ---
CM CONTACTED PTS DAUGHTER/PRIMARY CONTACT, ANTELMO SAMPSON [phone]. SHE REPORTS THE PT LIVES AT HOME WITH HIS AND HIS SON AND DAUGHTER IN LAW LIVE NEXT DOOR. 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 ANTELMO REPORTS SHE IS THE PTS HCP, SHE FEELS THERE SHOULD BE ONE ON FILE AT [facility] PTS PCP IS ABDULLAHI SCOTT ANTELMO REPORTS THE PT HAS BEEN FULLY VACCINATED AGAINST COVID-19. SHE BELIEVES HE RECEIVED TWO DOSES OF PFIZER AND THEN HAD A MODERNA BOOSTER. IMM DELIVERED, ORIGINAL WILL BE EMAILED TO [email or web address] PER HER REQUEST, COPY SENT TO MED[facility] RECORDS. CURRENT DC PLAN IS HOME VS HOME WITH [facility] FAMILY TO TRANSPORT
--- NOTE | 2021-05-27 12:46 | P.PNIM_ITS ---
Subjective Subjective Date of Service: 05/27/21 Review of Systems follow-up a 19 Denies shortness breath, cough then reports feeling not as tired today All other systems are reviewed and are negative Physical Exam Vital Signs: Vital Signs: Last Vital Signs Temp 97.8 F 05/27/21 00:33 Pulse 68 05/27/21 09:34 Resp 16 05/27/21 09:34 BP 189/87 H 05/27/21 09:34 Pulse Ox 91 L 05/27/21 09:34 Oxygen Flow Rate 3 05/26/21 14:37 BMI result Body Mass Index 24.3 Appearing in no acute distress lung sounds are clear to auscultation heart regular rate rhythm, clear S1, S2 positive bowel sounds, abdomen is soft, nontender neuro patient is alert x3, no focal deficits Objective Data Active Medications Acetaminophen (Acetaminophen 325 Mg Tablet) 650 mg PO Q6H PRN PRN Reason: Pain, Mild (Pain Scale 1-3) Apixaban (Apixaban 5 Mg Tablet) 5 mg PO BID [facility] Last Admin: 05/27/21 09:27 Dose: 5 mg Documented by: BRENDON Ascorbic Acid (Ascorbic Acid 500 Mg Tablet) 500 mg PO DAILY [facility] Last Admin: 05/27/21 09:26 Dose: 500 mg Documented by: BRENDON Atorvastatin Calcium (Atorvastatin Calcium 80 Mg Tablet) 80 mg PO BEDTIME [facility] Last Admin: 05/26/21 20:38 Dose: 80 mg Documented by: DULCE MARIA Benzonatate (Benzonatate 100 Mg Capsule) 100 mg PO TID PRN PRN Reason: Cough Bumetanide (Bumetanide 1 Mg Tablet) 1 mg PO BID PRN; Protocol PRN Reason: Weight Gain Dexamethasone Sodium Phosphate (Dexamethasone Sod Phosphate 4 Mg/Ml Vial) 6 mg IVPUSH DAILY [facility] Last Admin: 05/27/21 09:24 Dose: 6 mg Documented by: BRENDON Guaifenesin (Guaifenesin 100 Mg/5 Ml Liquid) 5 ml PO Q4H PRN PRN Reason: Cough Levothyroxine Sodium (Levothyroxine Sodium 75 Mcg Tablet) 75 mcg PO DAILY@0630 [facility] Last Admin: 05/27/21 05:52 Dose: 75 mcg Documented by: DULCE MARIA Losartan Potassium (Losartan Potassium 50 Mg Tablet) 50 mg PO BID [facility]; Protocol Last Admin: 05/27/21 09:27 Dose: 50 mg Documented by: BRENDON Melatonin (Melatonin 3 Mg Tablet) 6 mg PO BEDTIME PRN PRN Reason: Insomnia Metoprolol Tartrate (Metoprolol Tartrate 100 Mg Tablet) 100 mg PO BID [facility]; Protocol Last Admin: 05/27/21 09:26 Dose: 100 mg Documented by: BRENDON Multivitamins/Vitamin C (Multivitamin Tablet) 1 tab PO DAILY [facility] Last Admin: 05/27/21 09:25 Dose: 1 tab Documented by: BRENDON Nifedipine (Nifedipine Er 30 Mg Tab.Er.24) 30 mg PO DAILY [facility] Last Admin: 05/27/21 05:52 Dose: 30 mg Documented by: DULCE MARIA Omeprazole (Omeprazole 20 Mg Capsule.Dr) 20 mg PO DAILY@0630 [facility] Last Admin: 05/27/21 05:52 Dose: 20 mg Documented by: DULCE MARIA Ondansetron HCl (Ondansetron Hcl 4 Mg/2 Ml Vial) 4 mg IVPUSH Q8H PRN PRN Reason: Nausea and Vomiting Pharmacy Consult (Consult Rx Perform Med Rec) 1 each MISCELLANE ONCE PRN PRN Reason: Consult order Sodium Chloride (0.9 % Sodium Chloride Flush 3 Ml Syringe) 3 ml IVFLUSH QSHIFT [facility] Last Admin: 05/27/21 09:27 Dose: 3 ml Documented by: BRENDON Labs CBC & Chem 7: 05/27/21 07:00 05/27/21 07:00 Labs: Laboratory Results - last 24 hr 05/26/21 05/26/21 05/26/21 15:55 15:55 15:55 MCV 89.0 MCH 29.1 MCHC 32.7 RDW 14.3 Plt Count 228 MPV 10.3 Immature Gran % (Auto) 0.7 H Neut % (Auto) 88.9 H Lymph % (Auto) 4.1 L [place] % (Auto) 5.6 Eos % (Auto) 0.5 Baso % (Auto) 0.2 Lymph # (Auto) 0.2 L [place] # (Auto) 0.2 Eos # (Auto) 0.0 Baso # (Auto) 0.0 Abs Immat Gran (auto) 0.03 Absolute Neuts (auto) 3.7 Absolute Nucleated RBC 0.000 Nucleated RBC % (auto) 0.0 Smear Tech's Comments Smear Path Review Anion Gap 15 Estim Creat Clear Calc 46.3 Estimated GFR 53 Random Glucose 92 Lactic Acid Calcium 8.4 Ferritin Total Bilirubin 0.5 Direct Bilirubin 0.2 AST 36 ALT 14 Alkaline Phosphatase 85 Lactate Dehydrogenase Troponin I High Sens 65.1 H B-Natriuretic Peptide Total Protein 5.9 L Albumin 3.0 L Lipase 49 Urine Color Urine Appearance Urine pH Ur Specific [place] Urine Protein Urine Glucose (UA) Urine Ketones Urine Blood Urine Nitrite Ur Leukocyte Esterase Urine RBC Urine WBC Ur Squamous Epith Cells Urine Bacteria COVID-19 (WILLIAM) COVID-19 Clin Com 05/26/21 05/26/21 05/26/21 15:55 15:55 15:55 MCV MCH MCHC RDW Plt Count MPV Immature Gran % (Auto) Neut % (Auto) Lymph % (Auto) [place] % (Auto) Eos % (Auto) Baso % (Auto) Lymph # (Auto) [place] # (Auto) Eos # (Auto) Baso # (Auto) Abs Immat Gran (auto) Absolute Neuts (auto) Absolute Nucleated RBC Nucleated RBC % (auto) Smear Tech's Comments Smear Path Review Anion Gap Estim Creat Clear Calc Estimated GFR Random Glucose Lactic Acid 1.8 Calcium Ferritin Total Bilirubin Direct Bilirubin AST ALT Alkaline Phosphatase Lactate Dehydrogenase Troponin I High Sens B-Natriuretic Peptide 461 H Total Protein Albumin Lipase Urine Color Urine Appearance Urine pH Ur Specific [place] Urine Protein Urine Glucose (UA) Urine Ketones Urine Blood Urine Nitrite Ur Leukocyte Esterase Urine RBC Urine WBC Ur Squamous Epith Cells Urine Bacteria COVID-19 (WILLIAM) Positive A COVID-19 Clin Com See Note 05/26/21 05/27/21 05/27/21 17:28 07:00 07:00 MCV 89.1 MCH 29.0 MCHC 32.5 RDW 14.3 Plt Count 220 MPV 10.3 Immature Gran % (Auto) 1.5 H Neut % (Auto) 80.7 H Lymph % (Auto) 6.9 L [place] % (Auto) 10.9 Eos % (Auto) 0.0 Baso % (Auto) 0.0 Lymph # (Auto) 0.1 L [place] # (Auto) 0.2 Eos # (Auto) 0.0 Baso # (Auto) 0.0 Abs Immat Gran (auto) 0.03 Absolute Neuts (auto) 1.6 L Absolute Nucleated RBC 0.000 Nucleated RBC % (auto) 0.0 Smear Tech's Comments VERIFIED Smear Path Review SEE NOTE Anion Gap 12 Estim Creat Clear Calc 50.6 Estimated GFR 59 Random Glucose 142 H D Lactic Acid Calcium 8.2 L Ferritin 1214 H Total Bilirubin Direct Bilirubin AST ALT Alkaline Phosphatase Lactate Dehydrogenase 282 H Troponin I High Sens B-Natriuretic Peptide Total Protein Albumin Lipase Urine Color YELLOW Urine Appearance CLEAR Urine pH 5.5 Ur Specific [place] 1.025 Urine Protein 3+ H Urine Glucose (UA) NEG Urine Ketones 5 Urine Blood 1+ H Urine Nitrite NEG Ur Leukocyte Esterase NEG Urine RBC 0-2 Urine WBC 0 Ur Squamous Epith Cells TRACE Urine Bacteria TRACE COVID-19 (WILLIAM) COVID-19 Clin Com Assessment and Plan (1) Viral sepsis: Status: Acute Assessment and Plan: 81 year old man admitted with COVID pneumonia Viral sepsis.? Secondary to COVID pneumonia Fever, tachypnea Follow blood cultures Start Decadron Id consult Supplemental oxygen Mucinex for dry cough Supportive care Trend inflam markers Hypothyroidism Continue levothyroxine History of lymphoma Currently on chemotherapy treatments History of atrial fibrillation Continue metoprolol and apixaban Hypertension continue losartan, metoprolol, nifedipine DVT prophylaxis with apixaban Attending Dr. Cordoba ?? Quality Stroke Does the patient have a stroke diagnosis?: No VTE Prior VTE?: No VTE Risk Level:: Medical - moderate - high VTE Device Contraindication: Treatment Not Indicated VTE Drug Contraindication: N/A - Med Ordered
--- NOTE | 2021-05-27 14:37 | P.CNID_ITS ---
History of Present Illness Data of Consult Service Date: 05/27/21 Requesting physician: Gayatri Thompson Primary Care Provider: Eamon Hahn MD HPI Reason for consult: COVID He reports shortness of breath He has had positive COVID test end April He has worsening shortness of breath Review of Systems Verdana 4l Review of Systems: Yes all other systems are reviewed and Verdana 4d are negative PMFSH Past Medical History Medical History Apical mural thrombus Arthritis Atrial fibrillation Basal cell carcinoma Degenerative lumbar spinal stenosis Hiatal hernia HTN (hypertension) Hypothyroidism Leg edema Lumbar spondylitis Lymphadenopathy Rosacea Family History Family History Father Heart disease Surgical History Surgical History Hx of biopsy Hx of colonoscopy Hx of tonsillectomy Hx of total knee replacement Social History Social History Household Members: Family Housing: House Alcohol intake: former Patient Tobacco Use Status: Former Tobacco user Quit Date: 1970 Tobacco use type: Cigarette Cigarette Packs Per Day: 1 Advance Directives Date on File: 05/27/21 service: Yes Current occupational status: retired [employer] Allergies Allergy/AdvReac Type Severity Reaction Status Date / Time No Known Allergies Allergy Mild NONE Verified 04/28/21 11:25 Active Medications: Current Medications Acetaminophen (Acetaminophen 325 Mg Tablet) 650 mg PO Q6H PRN PRN Reason: Pain, Mild (Pain Scale 1-3) Apixaban (Apixaban 5 Mg Tablet) 5 mg PO BID [facility] Last Admin: 05/27/21 09:27 Dose: 5 mg Documented by: Ascorbic Acid (Ascorbic Acid 500 Mg Tablet) 500 mg PO DAILY [facility] Last Admin: 05/27/21 09:26 Dose: 500 mg Documented by: Atorvastatin Calcium (Atorvastatin Calcium 80 Mg Tablet) 80 mg PO BEDTIME [facility] Last Admin: 05/26/21 20:38 Dose: 80 mg Documented by: Benzonatate (Benzonatate 100 Mg Capsule) 100 mg PO TID PRN PRN Reason: Cough Bumetanide (Bumetanide 1 Mg Tablet) 1 mg PO BID PRN; Protocol PRN Reason: Weight Gain Dexamethasone Sodium Phosphate (Dexamethasone Sod Phosphate 4 Mg/Ml Vial) 6 mg IVPUSH DAILY [facility] Last Admin: 05/27/21 09:24 Dose: 6 mg Documented by: Guaifenesin (Guaifenesin 100 Mg/5 Ml Liquid) 5 ml PO Q4H PRN PRN Reason: Cough Levothyroxine Sodium (Levothyroxine Sodium 75 Mcg Tablet) 75 mcg PO DAILY@0630 [facility] Last Admin: 05/27/21 05:52 Dose: 75 mcg Documented by: Losartan Potassium (Losartan Potassium 50 Mg Tablet) 50 mg PO BID [facility]; Protocol Last Admin: 05/27/21 09:27 Dose: 50 mg Documented by: Melatonin (Melatonin 3 Mg Tablet) 6 mg PO BEDTIME PRN PRN Reason: Insomnia Metoprolol Tartrate (Metoprolol Tartrate 100 Mg Tablet) 100 mg PO BID [facility]; Protocol Last Admin: 05/27/21 09:26 Dose: 100 mg Documented by: Multivitamins/Vitamin C (Multivitamin Tablet) 1 tab PO DAILY [facility] Last Admin: 05/27/21 09:25 Dose: 1 tab Documented by: Nifedipine (Nifedipine Er 30 Mg Tab.Er.24) 30 mg PO DAILY [facility] Last Admin: 05/27/21 05:52 Dose: 30 mg Documented by: Omeprazole (Omeprazole 20 Mg Capsule.) 20 mg PO DAILY@0630 [facility] Last Admin: 05/27/21 05:52 Dose: 20 mg Documented by: Ondansetron HCl (Ondansetron Hcl 4 Mg/2 Ml Vial) 4 mg IVPUSH Q8H PRN PRN Reason: Nausea and Vomiting Pharmacy Consult (Consult Rx Perform Med Rec) 1 each MISCELLANE ONCE PRN PRN Reason: Consult order Sodium Chloride (0.9 % Sodium Chloride Flush 3 Ml Syringe) 3 ml IVFLUSH QSHIFT [facility] Last Admin: 05/27/21 09:27 Dose: 3 ml Documented by: Home Medications Medication Instructions Recorded Confirmed Last Taken Type levothyroxine 75 75 mcg PO 07/24/20 05/26/21 05/26/21 History mcg tablet DAILY@0630 omeprazole 20 mg 20 mg PO 07/24/20 05/26/21 05/26/21 History capsule,delayed DAILY@0630 release nifedipine 30 mg 30 mg PO DAILY 04/17/21 05/26/21 05/26/21 History tablet,extended release ascorbic acid 500 mg PO DAILY 05/26/21 05/26/21 05/26/21 History (vitamin C) 500 mg tablet atorvastatin 80 1 tab PO BEDTIME 05/26/21 05/26/21 05/25/21 History mg tablet benzonatate 100 1 cap PO TID PRN 05/26/21 05/26/21 Unknown History mg capsule bumetanide 1 mg 1 tab PO BID PRN 05/26/21 05/26/21 Unknown History tablet cefuroxime axetil 1 tab PO BID 05/26/21 05/26/21 05/26/21 History 500 mg tablet multivitamin 1 tab PO DAILY 05/26/21 05/26/21 05/26/21 History ondansetron 4 mg 4 mg PO Q6H PRN 05/26/21 05/26/21 Unknown History disintegrating tablet Physical Exam Verdana 4l Vital Signs: Verdana 4d Verdana 4d Vital Signs: Verdana 4d Verdana 4Bd Last Vital Signs Verdana 4d [employer] New 4d [employer] New 4d Temp 97.8 F 05/27/21 00:33 [employer] New 4d Pulse 68 05/27/21 09:34 [employer] New 4d Resp 16 05/27/21 09:34 BP 189/87 H 05/27/21 09:34 Pulse Ox 91 L 05/27/21 09:34 Oxygen Flow Rate 3 05/26/21 14:37 BMI result Body Mass Index 24.3 Const: General: cooperative Eyes: General: appearance normal, both eyes and all related structures Pupils: Equal, round and reactive pupils present Resp: Effort & Inspection: normal respiratory effort Cardio: Rate: regular rate Rhythm: regular rhythm GI: Palpation (GI): nontender Skin: General skin exam: no rashes or lesions noted Neuro: Cranial nerves: Yes Equal, round and reactive pupils present Results Labs CBC & Chem 7: 05/27/21 07:00 05/28/21 05:45 Labs: Short CBC 05/26/21 05/27/21 Range/Units 15:55 07:00 WBC 4.1 L 2.0 L (4.8-10.8) X10*3/uL Hgb 13.7 L 13.3 L (14.0-18.0) g/dl Hct 41.9 L 40.9 L (42.0-52.0) % Plt Count 228 220 (160-400) X10*3/uL BMP 05/26/21 05/27/21 15:55 07:00 Sodium 143 142 Potassium 4.0 4.2 Chloride 110 H 111 H Carbon Dioxide 22 23 BUN 22 H 22 H Creatinine 1.29 1.18 Calcium 8.4 8.2 L Liver Function 05/26/21 Range/Units 15:55 Total Bilirubin 0.5 (0.0-1.0) mg/dL Direct Bilirubin 0.2 (0.0-0.5) mg/dL AST 36 (5-37) U/L ALT 14 (0-40) U/L Alkaline Phosphatase 85 (39-117) U/L Albumin 3.0 L (3.5-5.0) g/dL Urine 05/26/21 Range/Units 17:28 Urine Color YELLOW Urine Appearance CLEAR Urine pH 5.5 (5.0-8.0) Ur Specific [place] 1.025 (1.005-1.025) Urine Protein 3+ H (NEG-TRACE) MG/DL Urine Glucose (UA) NEG (NEG) MG/DL Assessment and Plan (1) COVID-19 virus infection: Status: Resolved He has possible atypical pneumonia He has had COVID and is three weeks out He may have pulmonary fibrosis/CAP Plan 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
[2021-05-27 20:40] VITALS: BP 173/75; PULSE 69; RESP 24; TEMP 36.6; O2SAT 96
[2021-05-27] MEDS: Melatonin 3 MG TABLET 6 MG PO (21:00)
[2021-05-27] MEDS: Atorvastatin Calcium 80 MG TABLET PO (21:01)
[2021-05-27 23:32] VITALS: BMI 21.0
[2021-05-28 03:07] VITALS: BP 166/82; PULSE 85; RESP 18; TEMP 36.4; O2SAT 96
[2021-05-28] MEDS: Levothyroxine Sodium 75 MCG TABLET PO (05:54)
[2021-05-28] MEDS: Omeprazole 20 MG CAPSULE.DR PO (05:54)
[2021-05-28 06:16] LABS: Anion Gap 14 (12-20); Blood Urea Nitrogen 27 mg/dL (9-16); Calcium 8.5 mg/dL (8.4-10.2); Carbon Dioxide 21 mmol/L (22-29); Chloride 113 mmol/L (96-108); Estimated Glomerular Filt Rate > 60; Glucose Random 134 mg/dL (60-115); Lactate Dehydrogenase 276 U/L (118-273); Potassium 3.8 mmol/L (3.3-5.1); Sodium 144 mmol/L (135-145)
[2021-05-28 06:39] LABS: Ferritin 1185 ng/mL (20-250)
--- NOTE | 2021-05-28 06:41 | PC.NURSE ---
Admitted pt from the ED, tolerating O2 at 2L/min via NC, pt claimed of mild SOB on exertion and some non productive cough, denies any pain, updated on plan of care, safety encouraged as well as use of call hooper.
[2021-05-28 07:19] VITALS: BP 146/93; PULSE 85; RESP 20; TEMP 35.9; O2SAT 96
[2021-05-28 08:00] VITALS: BP 146/93; PULSE 85; RESP 20; TEMP 35.9; O2SAT 96
[2021-05-28] MEDS: Metoprolol Tartrate 100 MG TABLET PO (08:10)
[2021-05-28] MEDS: NIFEdipine ER 30 MG TAB.ER.24 PO (08:10)
[2021-05-28] MEDS: Ascorbic Acid 500 MG TABLET PO (08:10)
[2021-05-28] MEDS: Multivitamin TABLET 1 TAB PO (08:11)
[2021-05-28] MEDS: Apixaban 5 MG TABLET PO (08:11)
[2021-05-28] MEDS: Losartan Potassium 50 MG TABLET PO (08:11)
[2021-05-28] MEDS: 0.9 % Sodium Chloride Flush 3 ML SYRINGE IVFLUSH (08:12)
[2021-05-28] MEDS: dexAMETHasone sod phosphate 4 MG/ML VIAL 6 MG IVPUSH (08:12)
--- NOTE | 2021-05-28 08:30 | HO.PM.IMPN ---
Subjective Subjective Date of Service: 05/28/21 Review of Systems follow-up a 19 Denies shortness breath, cough then reports feeling not as tired today All other systems are reviewed and are negative Physical Exam Vital Signs: Vital Signs: Last Vital Signs Temp 96.6 F L 05/28/21 08:00 Pulse 85 05/28/21 08:00 Resp 20 05/28/21 08:00 BP 146/93 H 05/28/21 08:00 Pulse Ox 96 05/28/21 08:00 Oxygen Flow Rate 3 05/26/21 14:37 BMI result Body Mass Index 21.0 Appearing in no acute distress lung sounds are clear to auscultation heart regular rate rhythm, clear S1, S2 positive bowel sounds, abdomen is soft, nontender neuro patient is alert x3, no focal deficits Objective Data Active Medications Acetaminophen (Acetaminophen 325 Mg Tablet) 650 mg PO Q6H PRN PRN Reason: Pain, Mild (Pain Scale 1-3) Apixaban (Apixaban 5 Mg Tablet) 5 mg PO BID [facility] Last Admin: 05/28/21 08:11 Dose: 5 mg Documented by: COREEN Ascorbic Acid (Ascorbic Acid 500 Mg Tablet) 500 mg PO DAILY [facility] Last Admin: 05/28/21 08:10 Dose: 500 mg Documented by: COREEN Atorvastatin Calcium (Atorvastatin Calcium 80 Mg Tablet) 80 mg PO BEDTIME [facility] Last Admin: 05/27/21 21:01 Dose: 80 mg Documented by: DULCE MARIA Benzonatate (Benzonatate 100 Mg Capsule) 100 mg PO TID PRN PRN Reason: Cough Bumetanide (Bumetanide 1 Mg Tablet) 1 mg PO BID PRN; Protocol PRN Reason: Weight Gain Dexamethasone Sodium Phosphate (Dexamethasone Sod Phosphate 4 Mg/Ml Vial) 6 mg IVPUSH DAILY [facility] Last Admin: 05/28/21 08:12 Dose: 6 mg Documented by: COREEN Guaifenesin (Guaifenesin 100 Mg/5 Ml Liquid) 5 ml PO Q4H PRN PRN Reason: Cough Levothyroxine Sodium (Levothyroxine Sodium 75 Mcg Tablet) 75 mcg PO DAILY@0630 [facility] Last Admin: 05/28/21 05:54 Dose: 75 mcg Documented by: CASTILJuany Losartan Potassium (Losartan Potassium 50 Mg Tablet) 50 mg PO BID [facility]; Protocol Last Admin: 05/28/21 08:11 Dose: 50 mg Documented by: COREEN Melatonin (Melatonin 3 Mg Tablet) 6 mg PO BEDTIME PRN PRN Reason: Insomnia Last Admin: 05/27/21 21:00 Dose: 6 mg Documented by: DULCE MARIA Metoprolol Tartrate (Metoprolol Tartrate 100 Mg Tablet) 100 mg PO BID [facility]; Protocol Last Admin: 05/28/21 08:10 Dose: 100 mg Documented by: COREEN Multivitamins/Vitamin C (Multivitamin Tablet) 1 tab PO DAILY [facility] Last Admin: 05/28/21 08:11 Dose: 1 tab Documented by: COREEN Nifedipine (Nifedipine Er 30 Mg Tab.Er.24) 30 mg PO DAILY [facility] Last Admin: 05/28/21 08:10 Dose: 30 mg Documented by: COREEN Omeprazole (Omeprazole 20 Mg Capsule.Dr) 20 mg PO DAILY@0630 [facility] Last Admin: 05/28/21 05:54 Dose: 20 mg Documented by: GENEVIEVE Ondansetron HCl (Ondansetron Hcl 4 Mg/2 Ml Vial) 4 mg IVPUSH Q8H PRN PRN Reason: Nausea and Vomiting Pharmacy Consult (Consult Rx Perform Med Rec) 1 each MISCELLANE ONCE PRN PRN Reason: Consult order Sodium Chloride (0.9 % Sodium Chloride Flush 3 Ml Syringe) 3 ml IVFLUSH QSHIFT [facility] Last Admin: 05/28/21 08:12 Dose: 3 ml Documented by: COREEN Labs CBC & Chem 7: 05/27/21 07:00 05/28/21 05:45 Labs: Laboratory Results - last 24 hr 05/27/21 05/28/21 07:00 05:45 Smear Path Review SEE NOTE Anion Gap 14 Estim Creat Clear Calc 49.0 Estimated GFR > 60 Random Glucose 134 H Calcium 8.5 Ferritin 1185 H Lactate Dehydrogenase 276 H Microbiology Microbiology Results: Microbiology 05/26/21 15:55 Blood Culture - Preliminary Blood - Venous No growth after 24 hours. 05/26/21 15:55 Blood Culture - Preliminary Blood - Venous No growth after 24 hours. Assessment and Plan (1) Viral sepsis: Status: Acute Assessment and Plan: 81 year old man admitted with COVID pneumonia Viral sepsis.? Secondary to COVID pneumonia Fever, tachypnea Follow blood cultures Start Decadron Id consult Supplemental oxygen Mucinex for dry cough Supportive care Trend inflam markers Hypothyroidism Continue levothyroxine History of lymphoma Currently on chemotherapy treatments History of atrial fibrillation Continue metoprolol and apixaban Hypertension continue losartan, metoprolol, nifedipine DVT prophylaxis with apixaban Attending Dr. Cordoba ?? Quality Stroke Does the patient have a stroke diagnosis?: No VTE Prior VTE?: No VTE Risk Level:: Medical - moderate - high VTE Device Contraindication: Treatment Not Indicated VTE Drug Contraindication: N/A - Med Ordered
--- NOTE | 2021-05-28 10:09 | P.DS_ITS ---
DS: Providers Provider Date of Service: 05/28/21 Date of admission: 05/26/21 16:50 Primary care physician: Eamon Hahn MD Consults: 05/26/21 16:53 Consult to Infectious Diseases Routine Consulting Provider: Leslie Quinonez Reason for consultation: covid Has provider been notified: No 05/28/21 08:29 Consult to Pulmonology Routine Consulting Provider: Luis Antonio Teran Reason for consultation: ? pulmonary fibrosis Has provider been notified: No Attending physician on discharge: Sagar Cordoba Discharging clinician: Gayatri Thompson DS: Diagnosis Discharge Diagnosis (1) Viral sepsis: Status: Acute (2) COVID-19 virus infection: Status: Acute DS: Summary Hospital Course Hospital Course: 81-year-old man presented to the ER with complaints of worsening shortness of breath over the last several days.? He reports that he was diagnosed with COVID- 19? at the end of April however has continued to have worsening shortness of breath cough with little phlegm.? He denied fever, chills, nausea, vomiting, diarrhea.? Reported a fairly decent appetite.? His also contracted COVID.? He has been currently undergoing chemotherapy for lymphoma.? He was vaccinated with Pfizer and had the Moderna booster.? In the ER he was noted to have a fever of 102.4.? He was given a dose of Rocephin, 1 L of IV fluid and azithromycin.? He will be admitted for further management and treatment of viral sepsis secondary to COVID-19. Viral sepsis.?Resolved. Secondary to COVID pneumonia Negative cx after 24 hours Initially treated with IV Decadron, will continue 7 more days of oral Decadron Id consult inflammatory markers trended down Requires 4 L of oxygen with activity History of lymphoma Currently on chemotherapy treatments Time Spent with Patient Time attestation: Total time spent providing and/or coordinating discharge services: Discharge coordination time: Greater than 30 minutes Quality: Stroke Does the patient have a stroke diagnosis?: No Physical Exam Vital Signs: Vital Signs: Last Vital Signs Temp 96.6 F L 05/28/21 08:00 Pulse 85 05/28/21 08:00 Resp 20 05/28/21 08:00 BP 146/93 H 05/28/21 08:00 Pulse Ox 96 05/28/21 08:00 Oxygen Flow Rate 3 05/26/21 14:37 BMI result Body Mass Index 21.0 Appearing in no acute distress head is normocephalic atraumatic eyes pupils are PERRLA sclera is anicteric mouth throat mucous membranes are intact and moist neck is supple no lymphadenopathy, no JVD noted lung sounds are clear to auscultation heart regular rate rhythm, clear S1, S2 positive bowel sounds, abdomen is soft, nontender neuro patient is alert x3, no focal deficits DS: Data Data Completed and Pending Completed studies during hospitalization [Text1]: Procedures Excision of Cecum, Via Natural or Artificial Opening Endoscopic, Diagnostic (11/16/20) Excision of Ileum, Via Natural or Artificial Opening Endoscopic, Diagnostic (11/16/20) Labs on day of discharge: Laboratory Results - last 24 hr 05/28/21 05:45 Sodium 144 Potassium 3.8 Chloride 113 H Carbon Dioxide 21 L Anion Gap 14 BUN 27 H Creatinine 1.02 Estim Creat Clear Calc 49.0 Estimated GFR > 60 Random Glucose 134 H Calcium 8.5 Ferritin 1185 H Lactate Dehydrogenase 276 H Preliminary micro results at discharge 05/26/21 15:55 Blood Culture - Preliminary Blood - Venous No growth after 24 hours. 05/26/21 15:55 Blood Culture - Preliminary Blood - Venous No growth after 24 hours. Discharge Plan Discharge Anticipated Discharge Date/Time: 05/28/21 10:02 Patient Disposition: Home, Self-Care Discharge Diagnosis: Viral sepsis secondary to COVID pneumonia Referrals: Eamon Hahn MD [Primary Care Provider] - 1 Week Discharge Medications: New dexamethasone [Decadron] 6 mg tablet 6 mg PO DAILY Qty: 7 RF: 0 Continued losartan 50 mg tablet 50 mg PO BID 90 Days Qty: 180 RF: 1 metoprolol tartrate 100 mg tablet 100 mg PO BID 90 Days Qty: 180 RF: 1 levothyroxine 75 mcg tablet 75 mcg PO DAILY@0630 RF: 0 omeprazole 20 mg capsule,delayed release(DR/EC) 20 mg PO DAILY@0630 RF: 0 nifedipine 30 mg Tablet Extended Release 30 mg PO DAILY RF: 0 benzonatate 100 mg capsule 1 cap PO TID PRN (Reason: Cough) RF: 0 cefuroxime axetil 500 mg tablet 1 tab PO BID RF: 0 multivitamin Tablet 1 tab PO DAILY RF: 0 atorvastatin 80 mg tablet 1 tab PO BEDTIME RF: 0 ascorbic acid (vitamin C) 500 mg Tablet 500 mg PO DAILY RF: 0 bumetanide 1 mg tablet 1 tab PO BID PRN (Reason: Weight Gain) RF: 0 ondansetron 4 mg tablet,disintegrating 4 mg PO Q6H PRN (Reason: Nausea And Vomiting) RF: 0 Eliquis 5 mg tablet 5 mg PO BID Qty: 180 RF: 4 Discharge Orders: Discharge Order (Routine); Ordered 05/28/21 Ordered By: Gayatri Thompson Diet: advance to usual diet Activity on Discharge: As tolerated Stand Alone Forms: Patient Portal Discharge page Care Plan Goals: complete resolution of COVID symptoms Health Concerns: viral sepsis secondary to COVID pneumonia Plan of Treatment: Continue Decadron for 7 more days He will be sent home with 4 L of oxygen with activity, follow-up with your primary care provider to evaluate the further need for oxygen therapy Assessment: see discharge summary
[2021-05-28 11:26] VITALS: PULSE 58; PULSE 66; PULSE 85; O2SAT 90; O2SAT 91; O2SAT 96
[2021-05-28 11:36] VITALS: BP 148/62; PULSE 84; RESP 20; TEMP 36.1; O2SAT 90
--- NOTE | 2021-05-28 12:16 | W.MHC.F2F ---
Service Date Service Date: 05/28/21 Encounter Date of encounter: 05/28/21 Reasons for Services Signs and symptoms assessed: COVID pneumonia requiring oxygen therapy Reason for senior care: CV/CP assess and/or care and teach disease management Homebound: Leaving the home is medically contraindicated at this time without the asist of a device and/or another person due th the listed conditions above and below. Reason homebound: unsteady gait / fall risk Certification: Based on the above findings, I certify that this patient is confined to the home and needs intermittent senior care care, physical therapy and/or speech therapy, or continues to need occupational therapy. The patient is under my care, and I have initiated the establishment of the plan of care. The patient will be followed by a physician who will periodically review the plan of care.
--- NOTE | 2021-05-28 12:25 | MHC.CM.PN ---
pt dcd today hvns notified of dc
== END 2021-05-28 14:11 | disposition home health service (06) | DRG 871 ==
LOC: HO.ED 16:13 → HO.EDOVER 18:19 → HO.IMC 05-27 22:01
PROVIDERS: Admitting Provider Nurse Practitioner Acute Care; Emergency Provider Emergency Medicine; PCP Internal Medicine; Visit Provider Nurse Practitioner Acute Care
DX: A41.89 Other specified sepsis (principal); U07.1 COVID-19; J12.82 Pneumonia due to coronavirus disease 2019; C85.90 Non-Hodgkin lymphoma, unspecified, unspecified site; I12.9 Hypertensive chronic kidney disease with stage 1 through stage 4 chronic kidney disease, or unspecified chronic kidney disease; N18.30 Chronic kidney disease, stage 3 unspecified; E03.9 Hypothyroidism, unspecified; J84.10 Pulmonary fibrosis, unspecified; Z96.652 Presence of left artificial knee joint; Z87.891 Personal history of nicotine dependence; Z79.01 Long term (current) use of anticoagulants; Z79.890 Hormone replacement therapy; Z79.899 Other long term (current) drug therapy
CPT/HCPCS: 36415; 71045; 71046; 71250; 80048; 80053; 80076; 81001; 82728; 83605; 83615; 83690; 83880; 84484; 85025; 87040; 87635; 93005; 99285; J0456; J0696; J1100

== ENCOUNTER 2021-07-03 08:19 | Outpatient (REF) | payer MEDICARE, OTHER, SELFPAY ==
--- NOTE | ~2021-07-03 | CT_ITS ---
EXAMINATION: CT ABDOMEN AND PELVIS WITH CONTRAST CLINICAL INFORMATION: Reevaluate abdominal lymphoma COMPARISON: Previous CT November 2020 TECHNIQUE: Multidetector volumetric images were obtained from the superior aspect of the liver through the pubic symphysis following administration 85 mL of Omnipaque 350 intravenous contrast. Sagittal and coronal reformatted images were obtained on the technologist's workstation. Oral contrast: Yes This CT examination was performed using dose optimization techniques as appropriate, variously including the following: *Automated exposure control *Adjustment of mA and/or kV according to patient size (this includes techniques or standardized protocols for targeted exams where dose is matched to indication/reason for exam; i.e. extremities or head) *Use of iterative reconstruction technique DLP: 283 mGy-cm FINDINGS: LUNG BASES: There are new peripheral reticular markings seen in the lungs. Clinical correlation recommended. 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 The previously identified dense airspace disease with air bronchograms in the right middle and right lower lobes on November 2020 exam is no longer seen. There is interval decrease in the right pleural effusion. There is a significant coronary artery calcification. LIVER, GALLBLADDER, AND BILIARY TREE: The liver is normal in size, shape, and attenuation. No focal hepatic lesion or biliary ductal dilatation is present. The gallbladder is unremarkable with no evidence of radiopaque gallstones, gallbladder wall thickening, or obvious pericholecystic inflammatory changes. PANCREAS: Unremarkable. SPLEEN: Unremarkable. ADRENAL GLANDS: Unremarkable. KIDNEYS AND URETERS: There are small bilateral renal cysts. The kidneys are otherwise normal. BLADDER: The prostate gland is enlarged and protrudes into the base of the bladder. The bladder is not optimally distended. GASTROINTESTINAL TRACT: There is abnormal wall thickening of the terminal ileum and cecum. This appears decreased or improved compared to November 2020 exam. The adjacent right lower quadrant lymph nodes appear decreased as well. Small and large bowel is otherwise unremarkable. The stomach appears unremarkable. ABDOMINAL WALL: There is a small umbilical hernia containing fat. LYMPH NODES: There is interval decrease in pericolic and right lower quadrant small bowel mesentery lymphadenopathy. There is interval decrease in retroperitoneal lymph nodes. No enlarged lymph nodes are seen. VASCULAR: There is evidence of severe atherosclerotic disease. PELVIC VISCERA: The prostate gland is enlarged and protrudes into the base of the bladder. OSSEOUS STRUCTURES: There is scoliosis and degenerative changes of the spine. There is a heterogeneous attenuation of the bones with sclerotic and lucent areas. It is uncertain whether this represents lymphomatous involvement or osteopenia. No bone uptake was appreciated on PET/CT favoring the latter. CT/CT abdomen pelvis w con IMPRESSION: Interval decrease in wall thickening of the terminal ileum and cecum. Interval decrease in adjacent right lower quadrant and retroperitoneal lymph nodes. Slightly enlarged prostate gland. Bilateral renal cysts. Atherosclerotic disease. New peripheral fibrotic changes at the lung bases. Interval decrease in right pleural effusion. Fleischner guidelines were followed.
[2021-07-03] MEDS: iohexoL 350 MG/ML 100 ML INFUS..BTL IV (11:40)
[2021-07-03] MEDS: Barium Sulfate Oral (Vanilla) 450 ML ORAL.SUSP 900 ML PO (11:41)
== END 2021-07-03 08:20 | disposition home or self-care (01) ==
LOC: HO.CT 08:19
PROVIDERS: PCP Internal Medicine; Visit Provider Internal Medicine
DX: C85.93 Non-Hodgkin lymphoma, unspecified, intra-abdominal lymph nodes (principal)
CPT/HCPCS: 74177; Q9967

== ENCOUNTER → 2021-07-11 08:09 | Outpatient (BNVA) | payer MEDICARE, OTHER, SELFPAY | PROVIDERS: PCP Internal Medicine; Visit Provider Internal Medicine | DX: M48.061 Spinal stenosis, lumbar region without neurogenic claudication (principal); M46.96 Unspecified inflammatory spondylopathy, lumbar region | CPT/HCPCS: 99212 ==

== ENCOUNTER 2021-07-14 08:53 | Outpatient (REF) | payer MEDICARE, OTHER, SELFPAY ==
[2021-07-14 10:22] LABS: MANUAL DIFF FLAG NO
[2021-07-14 10:42] LABS: Alanine Aminotransferase 8 U/L (0-40); Albumin Level 3.6 g/dL (3.5-5.0); Alkaline Phosphatase 77 U/L (39-117); Anion Gap 12 (12-20); Aspartate Amino Transferase 16 U/L (5-37); Bilirubin Total 1.2 mg/dL (0.0-1.0); Blood Urea Nitrogen 18 mg/dL (9-16); Calcium 8.7 mg/dL (8.4-10.2); Carbon Dioxide 24 mmol/L (22-29); Chloride 105 mmol/L (96-108); Estimated Glomerular Filt Rate 50; Glucose Fasting 95 mg/dL (60-99); Potassium 4.4 mmol/L (3.3-5.1); Sodium 137 mmol/L (135-145)
[2021-07-14 10:50] LABS: Appearance Urine CLEAR; Color Urine YELLOW; Glucose Urine UA NEG (NEG); Leukocyte Esterase Urine NEG (NEG); Nitrite Urine NEG (NEG); Urine Blood NEG (NEG); Urine Ketones NEG (NEG); Urine Protein 2+ MG/DL (NEG-TRACE)
[2021-07-14 10:56] LABS: Basophils Absolute Auto 0.1 X10*3/uL (0.0-0.2); Basophils Percent Auto 0.8 % (0-2); Eosinophils Absolute Auto 0.5 X10*3/uL (0.0-0.4); Eosinophils Percent Auto 8.5 % (0-4); Hematocrit 38.6 % (42.0-52.0); Hemoglobin 12.5 g/dl (14.0-18.0); Imm Gran Abs Auto 0.03 X10*3/uL (0.00-0.03); Imm Gran Pct Auto 0.5 % (0.0-0.4); Lymphocytes Absolute Auto 0.3 X10*3/uL (1.2-4.9); Lymphocytes Percent Auto 5.1 % (20-40); Mean Corpuscular HGB Conc 32.4 g/dl (31.0-36.0); Mean Corpuscular Hemoglobin 30.9 pg (27.0-33.0); Mean Corpuscular Volume 95.5 fL (80.0-98.0); Mean Platelet Volume 10.8 fL (9.4-12.4); Monocytes Absolute Auto 0.7 X10*3/uL (0.1-1.2); Neutrophils Absolute Auto 4.4 x10*3/uL (2.0-8.3); Neutrophils Percent Auto 74.1 % (45-73); Platelet Count 245 X10*3/uL (160-400); Red Blood Count 4.04 X10*6/uL (4.60-5.80); Red Cell Distribution Width 20.3 % (11.0-16.0); Thyroid Stimulating Hormone 1.69 uIU/mL (0.32-4.0); White Blood Count 5.9 X10*3/uL (4.8-10.8)
[2021-07-14 10:59] LABS: RBC Urine 0 /HPF (0); WBC Urine 0-2 /HPF (0-4)
[2021-07-14 11:00] LABS: Mucus Urine 1+ /LPF
== END 2021-07-14 08:54 | disposition home or self-care (01) ==
LOC: HO.10HDL 08:53
PROVIDERS: Visit Provider Internal Medicine
DX: I10 Essential (primary) hypertension (principal); K22.70 Barrett's esophagus without dysplasia; C83.80 Other non-follicular lymphoma, unspecified site
CPT/HCPCS: 36415; 80053; 81001; 84443; 85025

== ENCOUNTER → 2021-07-16 10:47 | Outpatient (BNVA) | payer MEDICARE, OTHER, SELFPAY | PROVIDERS: PCP Internal Medicine; Visit Provider Internal Medicine Pulmonary Disease | DX: R93.89 Abnormal findings on diagnostic imaging of other specified body structures (principal); U09.9 Post COVID-19 condition, unspecified | CPT/HCPCS: 99202 ==

== ENCOUNTER → 2021-08-11 09:40 | Outpatient (BNVA) | payer MEDICARE, OTHER, SELFPAY | PROVIDERS: PCP Internal Medicine; Visit Provider Internal Medicine | DX: M79.18 Myalgia, other site (principal); M46.96 Unspecified inflammatory spondylopathy, lumbar region | CPT/HCPCS: 20553; 99212 ==

== ENCOUNTER 2021-09-16 11:04 | Outpatient (REF) | payer MEDICARE, OTHER, SELFPAY ==
--- NOTE | ~2021-09-16 | PE_ITS ---
Indication: Evaluate response to therapy EXAMINATION: Whole body PET/CT imaging. Dedicated coincidence imaging from the base of the skull to the thighs. 15.7 mCi F-18 deoxyglucose. Dedicated coincidence imaging. Comparison is made to previous dated 12/31/[address] chest dated 05/28/[address] abdomen pelvis dated 07/03/2021. Findings; The neck activity is felt to be within normal limits. In the chest there is no suspicious focus. Normal low-level mediastinal activity. No suspicious uptake within the lungs. No suspicious uptake within the small nodules identified on CT of 05/28/2021. Some areas of atelectasis and patchy infiltrate noted on the left. In the abdomen pelvis there is normal low-level uptake in the liver and spleen. Normal renal and bladder activity. There is no significant abnormal uptake within the region of the patient's primary tumor involving the right lower quadrant. The most significant area measures 2.5 SUV max. Other scattered areas of bowel activity are noted showing equal or increased uptake and therefore residual uptake here may well be physiologic in the right lower quadrant related to normal bowel activity. In the area of the lymph node in question periaortic on the left is no suspicious uptake P. Uptake in this region is 1.5 SUV max. No suspicious uptake in the region of previously observed abnormal activity adjacent to the bladder. There is some mild activity in the right hemipelvis adjacent to the bowel but there is no correlative adenopathy or mass identified therefore this uptake is likely physiologic. No suspicious uptake within the bony structures. Uptake in the facet regions of the mid to lower cervical vertebrae are likely degenerative in etiology. PET/PET CT fusion skull to thigh IMPRESSION: Findings as described above. There is no longer abnormal increased uptake in the region of the right lower quadrant. There is some uptake here but as described it is similar to the uptake in the remainder of the bowel which shows low-level activity and this would favor complete response. As described no other suspicious focus in the abdomen pelvis and no suspicious finding in the chest
== END 2021-09-16 11:05 | disposition home or self-care (01) ==
LOC: HO.PET 11:04
PROVIDERS: Visit Provider Internal Medicine
DX: Z13.89 Encounter for screening for other disorder (principal)

== ENCOUNTER → 2021-09-18 10:05 | Outpatient (BNVA) | payer MEDICARE, OTHER, SELFPAY | PROVIDERS: PCP Internal Medicine; Visit Provider Internal Medicine Pulmonary Disease | DX: U09.9 Post COVID-19 condition, unspecified (principal); R93.89 Abnormal findings on diagnostic imaging of other specified body structures | CPT/HCPCS: 99212 ==

== ENCOUNTER → 2021-09-19 09:16 | Outpatient (BNVA) | payer MEDICARE, OTHER, SELFPAY | PROVIDERS: PCP Internal Medicine; Visit Provider Internal Medicine | DX: M79.18 Myalgia, other site (principal); M46.96 Unspecified inflammatory spondylopathy, lumbar region | CPT/HCPCS: Q3014 ==

== ENCOUNTER 2021-09-26 05:55 | Outpatient (REF) | payer MEDICARE, OTHER, SELFPAY | END 2021-09-26 05:56 | disposition home or self-care (01) | LOC: HO.RADIR 05:55 | PROVIDERS: Visit Provider Internal Medicine | DX: M79.18 Myalgia, other site (principal) | CPT/HCPCS: 20553; J2795; J3300 ==

== ENCOUNTER 2021-10-01 05:58 | Outpatient (REF) | payer MEDICARE, OTHER, SELFPAY | END 2021-10-01 05:59 | disposition home or self-care (01) | LOC: HO.RADIR 05:58 | PROVIDERS: Visit Provider Internal Medicine | DX: M46.96 Unspecified inflammatory spondylopathy, lumbar region (principal) | CPT/HCPCS: J2795; Q9967 ==

== ENCOUNTER 2021-10-20 08:47 | Outpatient (REF) | payer MEDICARE, OTHER, SELFPAY ==
--- NOTE | ~2021-10-20 | MR_ITS ---
EXAMINATION: MRI FEMUR WITHOUT CONTRAST, RIGHT CLINICAL INFORMATION: Right buttock pain. Myalgia. Lymphoma. COMPARISON: Most recent PET/CT dated 09/16/2021. TECHNIQUE: Multisequence MR imaging of the right femur was obtained without contrast on a high-field strength scanner. FINDINGS: BONE: No abnormal marrow signal. No stress reaction, fracture, or avascular necrosis. No marrow edema to suggest acute osseous injury. No concerning lytic or blastic osseous lesion. MUSCLES/TENDONS: The visualized muscles and tendons are intact. No evidence of acute injury. INTRAPELVIC STRUCTURES: Grossly unremarkable. SOFT TISSUES: Along the periphery of the right gluteal musculature within the fascial plane, there is a fluid collection measuring up to 5.6 x 0.5 x 9.3 cm. No significant adjacent soft tissue edema. No soft tissue component. Small right hip joint effusion. No additional soft tissue mass, fluid collection, or edema. MR/MR femur RT wo con IMPRESSION: 1. Fluid within the fascial plane overlying the lateral aspect of the right gluteal musculature. Findings could represent bursitis versus sequela of a remote fascial avulsion injury. No adjacent inflammatory change. 2. Small right hip joint effusion. 3. No evidence of acute osseous abnormality. No stress reaction, fracture, or avascular necrosis.
== END 2021-10-20 08:48 | disposition home or self-care (01) ==
LOC: HO.MRI 08:47
PROVIDERS: Visit Provider Internal Medicine
DX: M79.18 Myalgia, other site (principal)
CPT/HCPCS: 73718

== ENCOUNTER → 2021-10-27 11:42 | Outpatient (BNVA) | payer MEDICARE, OTHER, SELFPAY | PROVIDERS: PCP Internal Medicine; Visit Provider Internal Medicine | DX: M79.18 Myalgia, other site (principal) | CPT/HCPCS: Q3014 ==

== ENCOUNTER 2021-11-19 05:51 | Outpatient (REF) | payer MEDICARE, OTHER, SELFPAY ==
--- NOTE | ~2021-11-19 | FL_ITS ---
EXAMINATION: XR FLUOROSCOPY WITH IMAGES CLINICAL INFORMATION: M79.18 - Myalgia, other site COMPARISON: MR right femur 10/20/2021, CT pelvis 07/03/2021 TECHNIQUE: Fluoroscopy performed by Dr. Jose Timmons. Fluoroscopy time: 0.2 minutes. Cumulative Dose: 2.3 mGy. DAP: 0.544 Gycm2. Images: 1. FINDINGS: There is a final needle with tip overlying the inferior lateral aspect right ischial tuberosity. There is contrast along the tendon sheath. No visible vascular dictation. FL/FL guidance in treatment room IMPRESSION: Fluoroscopy for pain management procedure.
== END 2021-11-19 05:52 | disposition home or self-care (01) ==
LOC: HO.RADIR 05:51
PROVIDERS: Visit Provider Internal Medicine
DX: M70.71 Other bursitis of hip, right hip (principal); M79.18 Myalgia, other site
CPT/HCPCS: 20610; J3300

== ENCOUNTER → 2021-12-19 09:24 | Outpatient (BNVA) | payer MEDICARE, OTHER, SELFPAY | PROVIDERS: PCP Internal Medicine; Visit Provider Internal Medicine | DX: M70.71 Other bursitis of hip, right hip (principal) | CPT/HCPCS: 99212 ==

== ENCOUNTER 2022-01-23 10:38 | Outpatient (REF) | payer MEDICARE, OTHER, SELFPAY ==
[2022-01-23 13:40] LABS: MANUAL DIFF FLAG NO
[2022-01-23 13:46] LABS: Basophils Absolute Auto 0.1 X10*3/uL (0.0-0.2); Basophils Percent Auto 0.9 % (0-2); Eosinophils Absolute Auto 0.3 X10*3/uL (0.0-0.4); Eosinophils Percent Auto 5.2 % (0-4); Hematocrit 37.6 % (42.0-52.0); Hemoglobin 12.8 g/dl (14.0-18.0); Imm Gran Abs Auto 0.06 X10*3/uL (0.00-0.03); Imm Gran Pct Auto 1.1 % (0.0-0.4); Lymphocytes Absolute Auto 0.4 X10*3/uL (1.2-4.9); Lymphocytes Percent Auto 6.3 % (20-40); Mean Corpuscular Hemoglobin 32.5 pg (27.0-33.0); Mean Corpuscular Volume 95.4 fL (80.0-98.0); Monocytes Absolute Auto 0.8 X10*3/uL (0.1-1.2); Monocytes Percent Auto 13.5 % (2-11); Platelet Count 270 X10*3/uL (160-400); Red Blood Count 3.94 X10*6/uL (4.60-5.80); Red Cell Distribution Width 12.4 % (11.0-16.0); White Blood Count 5.5 X10*3/uL (4.8-10.8)
[2022-01-23 13:55] LABS: Alanine Aminotransferase 16 U/L (0-40); Albumin Level 3.9 g/dL (3.5-5.0); Alkaline Phosphatase 86 U/L (39-117); Anion Gap 16 (12-20); Aspartate Amino Transferase 20 U/L (5-37); Bilirubin Total 0.6 mg/dL (0.0-1.0); Blood Urea Nitrogen 23 mg/dL (9-16); Calcium 9.1 mg/dL (8.4-10.2); Carbon Dioxide 25 mmol/L (22-29); Chloride 100 mmol/L (96-108); Cholesterol 211 mg/dL; Estimated Glomerular Filt Rate 54; Glucose Fasting 95 mg/dL (60-99); HDL Cholesterol 61 mg/dL; LDL Cholesterol Calculated 130 mg/dl; Potassium 4.6 mmol/L (3.3-5.1); Sodium 136 mmol/L (135-145); Total Protein 6.3 g/dL (6.5-8.0); Triglycerides 100 mg/dL
[2022-01-23 13:56] LABS: Estimated Average Glucose 103 mg/dL; Hemoglobin A1c % 5.2 %
[2022-01-23 13:57] LABS: Appearance Urine Clear; Color Urine Yellow; Glucose Urine UA Negative (Negative); Leukocyte Esterase Urine Negative (Negative); Nitrite Urine Negative (Negative); UMIC TRIGGER UA YES; Urine Blood Negative (Negative); Urine Ketones Negative (Negative); Urine Protein 100 (2+) mg/dL (Neg-Trace)
[2022-01-23 14:07] LABS: Bacteria Urine None Seen (None Seen); Hyaline Casts Urine 0-2 /LPF (0-2); RBC Urine 0-2 /HPF (0-2); Squamous Epithelial Cell Urine 0-2 /HPF (0-2); WBC Urine 0-5 /HPF (0-5)
[2022-01-23 14:16] LABS: Thyroid Stimulating Hormone 1.69 uIU/mL (0.32-4.0)
== END 2022-01-23 10:39 | disposition home or self-care (01) ==
LOC: HO.10HDL 10:38
PROVIDERS: Radiology Diagnostic Radiology; Visit Provider Internal Medicine
DX: I10 Essential (primary) hypertension (principal); K22.70 Barrett's esophagus without dysplasia; E78.00 Pure hypercholesterolemia, unspecified; R73.01 Impaired fasting glucose
CPT/HCPCS: 36415; 80053; 80061; 81001; 83036; 84443; 85025

== ENCOUNTER 2022-02-18 06:26 | Outpatient (REF) | payer MEDICARE, OTHER, SELFPAY ==
--- NOTE | ~2022-02-18 | FL_ITS ---
EXAMINATION: XR FLUOROSCOPY WITH IMAGES CLINICAL INFORMATION: Pain. M70.71 - Other bursitis of hip, right hip. History lymphoma. COMPARISON: Fluoroscopic spot view 11/19/2021, MR right femur 10/20/2021, PET/CT 09/16/2021. CT abdomen and pelvis 07/03/2021 TECHNIQUE: Fluoroscopy performed by Dr. Jose Timmons. Fluoroscopy time: 0.2 minutes. Cumulative Dose: 2.21 mGy. DAP: 0.366 Gy-cm2. Images: 2. FINDINGS: There are spinal needles overlying the outer right L3, L4, and L5 neural foramen. There is contrast seen in the respective nerve sheaths. Some early transforaminal epidural extension is suggested. No visible vascular communication. FL/FL guidance in treatment room IMPRESSION: Fluoroscopy for pain management procedures.
== END 2022-02-18 06:27 | disposition home or self-care (01) ==
LOC: CF 06:26
PROVIDERS: Visit Provider Internal Medicine
DX: M47.816 Spondylosis without myelopathy or radiculopathy, lumbar region (principal); M70.71 Other bursitis of hip, right hip; M46.96 Unspecified inflammatory spondylopathy, lumbar region
CPT/HCPCS: 64493; 64494

== ENCOUNTER 2022-03-26 11:03 | Outpatient (REF) | payer MEDICARE, OTHER, SELFPAY ==
[2022-03-26 11:17] LABS: MANUAL DIFF FLAG NO
[2022-03-26 11:20] LABS: Basophils Percent Auto 0.9 % (0-2); Eosinophils Absolute Auto 0.3 X10*3/uL (0.0-0.4); Eosinophils Percent Auto 5.9 % (0-4); Hematocrit 37.4 % (42.0-52.0); Hemoglobin 13.1 g/dl (14.0-18.0); Imm Gran Abs Auto 0.02 X10*3/uL (0.00-0.03); Imm Gran Pct Auto 0.4 % (0.0-0.4); Lymphocytes Absolute Auto 0.4 X10*3/uL (1.2-4.9); Mean Corpuscular Hemoglobin 33.7 pg (27.0-33.0); Mean Corpuscular Volume 96.1 fL (80.0-98.0); Mean Platelet Volume 9.2 fL (9.4-12.4); Monocytes Absolute Auto 0.8 X10*3/uL (0.1-1.2); Monocytes Percent Auto 16.6 % (2-11); Neutrophils Absolute Auto 3.1 x10*3/uL (2.0-8.3); Neutrophils Percent Auto 67.2 % (45-73); Platelet Count 213 X10*3/uL (160-400); Red Blood Count 3.89 X10*6/uL (4.60-5.80); Red Cell Distribution Width 13.2 % (11.0-16.0); White Blood Count 4.6 X10*3/uL (4.8-10.8)
[2022-03-26 11:42] LABS: Alanine Aminotransferase 16 U/L (0-40); Alkaline Phosphatase 78 U/L (39-117); Anion Gap 14 (12-20); Aspartate Amino Transferase 24 U/L (5-37); Bilirubin Total 0.6 mg/dL (0.0-1.0); Blood Urea Nitrogen 22 mg/dL (9-16); Calcium 9.3 mg/dL (8.4-10.2); Carbon Dioxide 24 mmol/L (22-29); Chloride 101 mmol/L (96-108); Estimated Glomerular Filt Rate 40; Glucose Random 91 mg/dL (60-115); Potassium 4.8 mmol/L (3.3-5.1); Sodium 134 mmol/L (135-145); Total Protein 6.4 g/dL (6.5-8.0)
== END 2022-03-26 11:04 | disposition home or self-care (01) ==
LOC: HO.LAB 11:03
PROVIDERS: PCP Internal Medicine; Visit Provider Internal Medicine
DX: C85.80 Other specified types of non-Hodgkin lymphoma, unspecified site (principal)
CPT/HCPCS: 36415; 80053; 85025

== ENCOUNTER 2022-03-31 10:00 | Outpatient (RCR) | payer MEDICARE, OTHER, SELFPAY ==
--- NOTE | 2022-03-03 09:58 | MHC.PT.EP ---
[facility] [place] Office [place] [facility] [place] Office [address] [phone] F: [phone] F: [phone] F: [phone] F: [phone] Physical Therapy Plan of Care Date of Evaluation: Date of Surgery: N/A Diagnosis: Bursitis of hip, right hip ischial bursitis of right hip Assessment: Pt is a pleasant 81yo M who presents to PT with chronic R hip pain. He presents to PT with current impairments in pain, decreased hip/glute strength, decreased core stabilization, decreased muscle length, soft tissue restrictions, impaired gait and decreased balance. He is limited functionally by getting OOB, prolonged standing, and walking. Pain improves with rest. He is a good candidate for skilled PT in order to address current impairments to facilitate return to PLOF. He is recommended to be seen 2x/week for 4 weeks and will be reassessed at that time. Frequency and Duration: The patient will be seen 2x/week for 4 weeks Short Term Goals: Pt will be I with HEP to promote self management of symptoms Pt will increase B glute med strength by 1/2 grade Manager Summer Goals: Pt will tolerate standing and walking > 20 min on even and uneven surfaces with minimal to no pain Pt will demonstrate improvements in function as evidenced by statistically significant improvement in LEFI outcome measure Treatment Plan: Modalities to reduce pain, spasms and effusion. Manual therapy to restore motion and function. Therapeutic exercise to improve strength and flexibility. Neuromuscular re-education for posture and balance. Therapeutic activities to return to functional activities of daily living. Electronically signed by: Alejandra Hollingsworth, PT, DPT Please sign and return to therapist. Thank you for your referral.
--- NOTE | 2022-03-31 14:58 | MHC.PT.DC ---
[facility] [place] [facility] [place] Office [place] [facility] [address] [phone] F: [phone] F: [phone] F: [phone] F: [phone] Physical Therapy Discharge Report Diagnosis: Bursitis of hip, right hip ischial bursitis of right hip Date of Surgery: N/A Date of Evaluation: 03/02/22 Date of Discharge: 03/31/22 Treatments to Date: 8 Cancellations to Date: No Shows to Date: Discharge Status: Independent with HEP Recommend MD Follow-up Discharge Summary: Pt has made fair progress with skilled PT. He has been motivated throughout PT POC and is compliant with HEP. He has improved his sitting tolerance and has decreased pain with prolonged sitting. He demonstrates improvements in ROM and strength however he continues to have unchanged pain with standing and walking. Pt is I with HEP. Pt is being D/C from skilled PT at this time as he has reached functional plateau. Recommend pt follow up with doctor as he continues to have pain with standing/walking. Pt reports no further questions or concerns for PT at this time. Electronically signed by: Alejandra Hollingsworth, PT, DPT Please sign and return to therapist. Thank you for your referral.
== END 2022-03-31 14:57 | disposition home or self-care (01) ==
LOC: HO.PT 10:00
PROVIDERS: PCP Internal Medicine; Visit Provider Internal Medicine
DX: M70.71 Other bursitis of hip, right hip (principal)
CPT/HCPCS: 97110; 97140; 97162

== ENCOUNTER 2022-04-01 08:27 | Outpatient (REF) | payer MEDICARE, OTHER, SELFPAY ==
--- NOTE | ~2022-04-01 | CT_ITS ---
EXAMINATION: CT ABDOMEN AND PELVIS WITH CONTRAST CLINICAL INFORMATION: Lymphoma COMPARISON: Previous CT of the abdomen and pelvis most recent June 2021 TECHNIQUE: Multidetector volumetric images were obtained from the superior aspect of the liver through the pubic symphysis following administration 85 mL of Omnipaque 350 intravenous contrast. Sagittal and coronal reformatted images were obtained on the technologist's workstation. Oral contrast: Yes This CT examination was performed using dose optimization techniques as appropriate, variously including the following: *Automated exposure control *Adjustment of mA and/or kV according to patient size (this includes techniques or standardized protocols for targeted exams where dose is matched to indication/reason for exam; i.e. extremities or head) *Use of iterative reconstruction technique DLP: 318 mGy-cm FINDINGS: LUNG BASES: Slight elevation of the right hemidiaphragm and subsegmental atelectasis in the right lung base. Severe coronary disease. LIVER, GALLBLADDER, AND BILIARY TREE: The liver is normal in size and shape. The liver is slightly low in attenuation suggestive of mild fatty No focal hepatic lesion or biliary ductal dilatation is present. The gallbladder is unremarkable with no evidence of radiopaque gallstones, gallbladder wall thickening, or obvious pericholecystic inflammatory changes. PANCREAS: Unremarkable. SPLEEN: Unremarkable. ADRENAL GLANDS: Unremarkable. KIDNEYS AND URETERS: Bilateral renal cysts. No imaging follow-up needed. Small nonobstructing stone left lower pole. BLADDER: Unremarkable. GASTROINTESTINAL TRACT: There is interval decrease in abnormal wall thickening seen surrounding the terminal ileum at the ileocecal valve and involving some of the distal ileum. There is still mild wall thickening seen in this region and the distal ileum appears slightly distended and small and large bowel is otherwise unremarkable. The appendix is not seen. Stomach is normal. ABDOMINAL WALL: Small umbilical hernia containing fat. LYMPH NODES: Stable retroperitoneal lymphadenopathy in the abdomen and pelvis. Largest lymph nodes are bilateral external iliac or common femoral lymph nodes that are upper normal in size measuring 1 cm in short axis axial image 80. There are small, small bowel mesentery lymph nodes. No enlarged mesenteric lymph nodes. No ascites. VASCULAR: Atherosclerotic disease. No aneurysm. Surgical clips right inguinal region. PELVIC VISCERA: Prostate gland is slightly enlarged OSSEOUS STRUCTURES: Scoliosis and degenerative changes. Mild fixation of L5 with respect to L4 and S1 probably related to facet arthritis. Probably osteopenia. CT/CT abdomen pelvis w IV con IMPRESSION: Interval decrease in abnormal wall thickening of the terminal ileum and ileocecal valve. Stable retroperitoneal lymphadenopathy. Bilateral renal cysts and small left renal stone. Slightly enlarged prostate gland. Fleischner guidelines were followed.
[2022-04-01] MEDS: iohexoL 350 MG/ML 100 ML INFUS..BTL IV (11:03)
[2022-04-01] MEDS: Barium Sulfate Oral (Mocha) 450 ML ORAL.SUSP 900 ML PO (11:03)
== END 2022-04-01 08:28 | disposition home or self-care (01) ==
LOC: HO.CT 08:27
PROVIDERS: Visit Provider Internal Medicine
DX: C85.80 Other specified types of non-Hodgkin lymphoma, unspecified site (principal)
CPT/HCPCS: 74177; Q9967

== ENCOUNTER → 2022-04-17 08:08 | Outpatient (BNVA) | payer MEDICARE, OTHER, SELFPAY | PROVIDERS: PCP Internal Medicine; Visit Provider Internal Medicine | DX: M48.061 Spinal stenosis, lumbar region without neurogenic claudication (principal); M79.18 Myalgia, other site | CPT/HCPCS: 99212 ==

== ENCOUNTER → 2022-04-29 13:49 | Outpatient (BNVA) | payer MEDICARE, OTHER, SELFPAY | PROVIDERS: PCP Internal Medicine; Referring Provider Internal Medicine; Visit Provider Nurse Practitioner Family | DX: I42.9 Cardiomyopathy, unspecified (principal); I48.0 Paroxysmal atrial fibrillation; I10 Essential (primary) hypertension; I25.10 Atherosclerotic heart disease of native coronary artery without angina pectoris; I51.3 Intracardiac thrombosis, not elsewhere classified; Z79.01 Long term (current) use of anticoagulants; Z79.899 Other long term (current) drug therapy | CPT/HCPCS: 93005; 99212 ==

== ENCOUNTER 2022-05-29 09:42 | Outpatient (REF) | payer MEDICARE, OTHER, SELFPAY ==
[2022-05-29 11:29] LABS: Anion Gap 11 (12-20); Blood Urea Nitrogen 26 mg/dL (9-16); Calcium 8.8 mg/dL (8.4-10.2); Carbon Dioxide 25 mmol/L (22-29); Chloride 101 mmol/L (96-108); Estimated Glomerular Filt Rate 41; Potassium 4.4 mmol/L (3.3-5.1); Sodium 133 mmol/L (135-145)
[2022-05-29 11:48] LABS: Creatinine Urine 61.37 mg/dL; Protein/Creatinine Ratio, Ur 3.85 (<0.2); Total Protein Urine Random 236 mg/dL (<12)
== END 2022-05-29 09:43 | disposition home or self-care (01) ==
LOC: HO.10HDL 09:42
PROVIDERS: Visit Provider Internal Medicine Nephrology
DX: I12.9 Hypertensive chronic kidney disease with stage 1 through stage 4 chronic kidney disease, or unspecified chronic kidney disease (principal); N18.31 Chronic kidney disease, stage 3a
CPT/HCPCS: 36415; 80051; 82310; 82565; 84156; 84520

== ENCOUNTER 2022-08-04 11:03 | Outpatient (REF) | payer MEDICARE, OTHER, SELFPAY ==
--- NOTE | ~2022-08-04 | PE_ITS ---
EXAMINATION: Fluorine-18 FDG PET/CT Scan CLINICAL INDICATION: Subsequent treatment management. B-cell lymphoma, restaging. PROCEDURE: 67 minutes following the intravenous administration of 17.5 mCi of fluorine 18 FDG, images from the base of the skull to the mid thighs were obtained using a combined PET/CT scanner with CT scan based attenuation correction. No oral contrast was administered. No intravenous contrast was administered. Transverse, coronal, sagittal, and volume reconstruction projections were obtained. The patient's blood glucose as determined by a finger stick, was 100 mg/dl immediately prior to injection. Total CT exam dose-length product 344.30 mGy-cm * These CT images were obtained using dose optimization techniques as appropriate, variously including the following: Automated exposure control * Adjustment of mA and/or kV according to patient size (this includes techniques or standardized protocols for targeted exams where dose is matched to indication/reason for exam; i.e. extremities or head) * Use of iterative reconstruction technique COMPARISON: Prior PET/CT scans dated 09/16/2021 and 12/31/2020 are available for comparison. The diagnostic CT scan of the abdomen and pelvis, dated 04/01/2022, is available for comparison. FINDINGS: (Slice numbers described in this report are numbered superiorly to inferiorly with slice #1 in the head) NECK AND VISUALIZED HEAD: Partially imaged in the superior aspect of the [id number] is a region of encephalomalacia in the right occipital/temporal lobe region with corresponding markedly diminished FDG activity that is not significantly changed in appearance from the prior CT of the brain dated 12/22/2020. No other foci of abnormal FDG activity are noted. The distribution of FDG activity is physiological. There is no cervical lymphadenopathy. THORAX: There are no foci of abnormal FDG activity in the chest. There is minimal biapical scarring with no associated abnormal FDG activity. There is also some scarring or atelectasis in the right lung base also with no associated abnormal FDG activity. No suspicious pulmonary nodules are visualized. There is no pleural or pericardial fluid, or pneumothorax. There is no mediastinal, supraclavicular, or axillary lymphadenopathy. ABDOMEN AND PELVIS: There are no foci of abnormal FDG activity present. Prominent right lower quadrant FDG activity in the distal ileum and adjacent cecum present on the baseline 12/31/[address] scan is no longer present. There is mild FDG activity throughout the gastrointestinal tract without a suspicious focal component and likely physiological. There is diverticulosis without evidence of diverticulitis. The hollow viscera are otherwise unremarkable. The liver, gallbladder, and spleen are unremarkable. There is a subcentimeter hypodense cyst in the upper pole of the right kidney, just barely visualized, but unchanged from the IV contrast enhanced CT scan of the abdomen and pelvis dated 04/01/2022 a larger and also unchanged hypodense cyst is present in the lower pole of the right kidney and a peripelvic left renal cyst is present, all unchanged from prior studies and the larger of these are markedly FDG photopenic and likely simple cysts. The kidneys are otherwise unremarkable. The adrenal glands and pancreas are unremarkable. Small retroperitoneal lymph nodes are visualized but none appear enlarged by size criteria and none are FDG avid. There is no mesenteric, pelvic or inguinal lymphadenopathy. The prostate gland is minimally enlarged measuring 5.1 cm in largest dimension there is mild FDG activity throughout the prostate without a focal component. The bladder is unremarkable. MUSCULOSKELETAL: There is mild FDG activity in both shoulders, likely arthritic, more prominently on the right. There are no other foci of abnormal FDG activity in the osseous structures. There are degenerative changes in the spine, most severely in the lumbar spine. No suspicious sclerotic or lytic lesions are visualized. VASCULAR: Diffuse vascular calcifications including dense coronary calcifications are noted. PET/PET CT fusion skull to thigh IMPRESSION: 1. No abnormalities suspicious for recurrent or metastatic malignancy are noted. Using the 5 point Deauville scale, this patient would be classified as a Deauville score of 1. 2. Diffuse vascular calcifications including coronary.
== END 2022-08-04 11:04 | disposition home or self-care (01) ==
LOC: HO.PET 11:03
PROVIDERS: PCP Internal Medicine; Visit Provider Internal Medicine
DX: Z13.89 Encounter for screening for other disorder (principal)

== ENCOUNTER 2022-09-15 08:45 | Outpatient (REF) | payer MEDICARE, OTHER, SELFPAY ==
--- NOTE | ~2022-09-15 | CT_ITS ---
EXAMINATION: CT CHEST WITHOUT CONTRAST CLINICAL INFORMATION: Abnormal lung findings. COMPARISON: PET/CT skull to thigh 08/04/2022 revealed unremarkable chest and abdomen. TECHNIQUE: Multidetector volumetric CT imaging of the chest was done. Axial MIP volume rendering provided. Sagittal and coronal reformatted images were obtained. This CT examination was performed using dose optimization techniques as appropriate, variously including the following: *Automated exposure control *Adjustment of mA and/or kV according to patient size (this includes techniques or standardized protocols for targeted exams where dose is matched to indication/reason for exam; i.e. extremities or head) *Use of iterative reconstruction technique DLP: 139 mGy-cm FINDINGS: Limited exam as patient was breathing throughout the exam. MANAGER ASSET MANAGEMENT: Well-inflated lungs. LUNGS: Lungs are well-expanded without any acute pneumonic process. There is plate-like atelectasis left bilateral lower lobes, right middle lobe and left upper lobe anterior segment. No pulmonary nodules, mass or consolidation seen. No bronchiectasis or peribronchial wall thickening. No prominent interstitial markings. MEDIASTINUM: Thyroid lobes are symmetric and normal. The central trachea and bronchi are widely patent. The heart size and great vessels are normal caliber. No pericardial effusion seen. No abnormal size mediastinal or hilar lymph nodes seen. CORONARY ARTERY CALCIFICATION: Moderate coronary artery calcifications are seen. PLEURA: There is no pleural effusion. No pleural mass or thickening. AXILLA: There are multiple bilateral lymph nodes slightly more prominent on the left than right but PET negative. The largest left axillary lymph node measures 1.7 cm axial image 13/3. The size of the lymph nodes are likely stable compared to the PET/CT exam. UPPER ABDOMEN: Visualized liver, spleen, pancreas and bilateral adrenal glands are unremarkable. OSSEOUS STRUCTURES: No aggressive lytic or sclerotic process seen. CT/CT chest wo IV con IMPRESSION: 1. No pulmonary nodule, mass or consolidation. 2. Bilateral axillary lymph nodes are stable compared to the PET/CT exam. 3. Moderate coronary artery calcifications. Fleischner guidelines were followed.
--- NOTE | 2022-09-15 09:12 | CA_ITS ---
Transthoracic Echocardiogram Patient (Last, First, Middle): Josh Abdul W Gender: Male Date of : 1940 Age: 82 Procedure Date: 09/15/2022 Procedure Type: Transthoracic Echocardiogram Location: OP Height: 170.18 cm Weight: 68.04 kg BSA: 1.79 m2 Heart Rate: bpm BP: 128 / 68 mmHg Latin [place] Studies Director: SHANIA Referring MD: Rajani Mantilla [employer]MENT DESIGN ENGINEER-C Symptoms: I42.9 - Cardiomyopathy, unspecified Study Quality: Adequate ECG Rhythm: Sinus Conclusions: - The left ventricular systolic function is normal. The calculated ejection fraction is 60% by biplane method. - Evidence suggests grade II (moderate) diastolic dysfunction. - There is evidence of regional wall motion abnormalities. - There is mild dilatation of the sinuses of Valsalva measuring 4.34 cm and mild dilatation of the ascending aorta measuring 4.10 cm. Findings Left Ventricle Normal left ventricular cavity size. There is mildly increased left ventricular wall thickness. The left ventricular systolic function is normal. The calculated ejection fraction is 60% by biplane method. There is evidence of regional wall motion abnormalities. E/E prime ratio is between 8 and 15 consistent with indeterminate filling pressures. Evidence suggests grade II (moderate) diastolic dysfunction. LV peak GLS -18%. Wall Motion Rest Echo Findings The basal inferolateral segment is hypokinetic. The basal inferior segment is akinetic. Right Ventricle Normal right ventricular cavity size and systolic function. Atria The left atrium is severely dilated. The right atrium is normal in size. Aortic Valve There is a normal trileaflet aortic valve. There is mild calcification of the aortic valve. There is no aortic valve stenosis. There is no aortic valve regurgitation. Mitral Valve There is mild mitral annular calcification. There is trace mitral valve regurgitation. There is no mitral valve stenosis. Pulmonic Valve The pulmonic valve is likely normal. Tricuspid Valve There is trace tricuspid valve regurgitation. There is no evidence of pulmonary hypertension. Great Vessels There is mild dilatation of the sinuses of Valsalva measuring 4.34 cm and mild dilatation of the ascending aorta measuring 4.10 cm. Small plaque is seen in the sino tubular ridge. Venous The inferior vena cava is normal in size and collapses greater than 50% with inspiration. Pericardium/Pleural There is no evidence of pericardial effusion. Prior Study Comparison Changes noted compared to prior study dated: 12/30/2020. Improved LVEF. Recommendations, Care & Conclusions No obvious valvular pathology seen on this study. Measurements 2D Linear Measurements IVSd: 1.27 0.6-0.9/0.6-1.0 cm LVIDd: 4.46 3.9-5.3/4.2-5.9 cm LVIDd Index: 2.49 2.4-3.2/2.2-3.1 cm/m2 LVIDs: 3.42 2.0-3.6 cm LVPWd: 1.27 0.7-1.1 cm LA Diam: 4.50 2.7-3.8/3.0-4.0 cm LAIDs Index: 2.51 1.5-2.3 cm/m2 LV Mass: 264.45 67-162/88-224 g LV Mass Index: 147.74 43-95/49-115 g/m2 LVOT Diam: 2.00 3.0+(-)1.3 cm 2D Systolic Function EF 4C: 58.40 >55% EF 2C: 61.40 >55% EF BiP: 60.20 >55% Mitral Valve MV Pk E: 0.95 MV PK A: 0.62 MV Decel Time: 212.00 E/A: 1.50 E'Lateral: 7.07 E'Medial: 6.42 E/E' Med: 14.80 E/E' Lat: 13.40 PHT: 62.00 MVA PHT: 3.55 Decel Harding: 4.47 Aortic Valve AoV Pk Jagdish: 1.15 AoV Mn Jagdish: 0.80 AoV VTI: 0.36 AoV Pk Grad: 5.00 Aov Mn Grad: 3.00 CRISTOFER Cont.VTI: 2.46 LVOT LVOT Pk Jagdish: 1.04 LVOT Mn Jagdish: 0.60 LVOT VTI: 0.28 LVOT Pk Grad: 4.00 LVOT Mn Grad: 2.00 LVOT Diam: 2.00 LVOT Area: 3.14 Diastolic Function MV Pk E: 0.95 MV Pk A: 0.62 E/A: 1.50 E'Medial: 6.42 E/E' Med: 14.80 E' Laterial: 7.07 E/E' Lat: 13.40 Right Ventricle TAPSE (mm): 19.40 TVS' Jagdish: 11.90 Tricuspid Valve TR Pk Jagdish: 2.09 TR Pk Grad: 17.00 RA Press: 3.00 RVSP: 20.00 Great Vessels Aorta Sinus of Valsalva: 4.34 2.0-3.[address] Ridge: 3.27 1.7-3.4 cm Ao Asc: 4.10 2.1-3.4 cm Updated in Other Vendor System with Status of Final Darwin Valadez MD electronically signed on 09/17/2022 10:58:06 AM with status of Final
== END 2022-09-15 08:46 | disposition home or self-care (01) ==
LOC: HO.CT 08:45
PROVIDERS: PCP Internal Medicine; Visit Provider Internal Medicine Pulmonary Disease
DX: I25.10 Atherosclerotic heart disease of native coronary artery without angina pectoris (principal); I42.9 Cardiomyopathy, unspecified; R93.89 Abnormal findings on diagnostic imaging of other specified body structures
CPT/HCPCS: 71250; 93306; 93356

== ENCOUNTER → 2022-10-28 14:55 | Outpatient (BNVA) | payer MEDICARE, OTHER, SELFPAY | PROVIDERS: PCP Internal Medicine; Referring Provider Internal Medicine; Visit Provider Internal Medicine | DX: I42.9 Cardiomyopathy, unspecified (principal); I48.0 Paroxysmal atrial fibrillation; I51.3 Intracardiac thrombosis, not elsewhere classified; I25.10 Atherosclerotic heart disease of native coronary artery without angina pectoris; I10 Essential (primary) hypertension; Z79.01 Long term (current) use of anticoagulants; Z79.899 Other long term (current) drug therapy | CPT/HCPCS: 99212 ==

== ENCOUNTER 2022-12-15 08:51 | Outpatient (REF) | payer MEDICARE, OTHER, SELFPAY ==
[2022-12-15 11:30] LABS: Anion Gap 12 (12-20); Blood Urea Nitrogen 24 mg/dL (9-16); Carbon Dioxide 24 mmol/L (22-29); Chloride 105 mmol/L (96-108); Estimated Glomerular Filt Rate 39; Potassium 4.5 mmol/L (3.3-5.1); Sodium 136 mmol/L (135-145)
[2022-12-15 12:58] LABS: Creatinine Urine 90.38 mg/dL
[2022-12-15 13:26] LABS: Protein/Creatinine Ratio, Ur 3.42 (<0.2); Total Protein Urine Random 309 mg/dL (<12)
== END 2022-12-15 08:52 | disposition home or self-care (01) ==
LOC: HO.10HDL 08:51
PROVIDERS: Visit Provider Internal Medicine Nephrology
DX: I12.9 Hypertensive chronic kidney disease with stage 1 through stage 4 chronic kidney disease, or unspecified chronic kidney disease (principal); R80.9 Proteinuria, unspecified; N18.31 Chronic kidney disease, stage 3a
CPT/HCPCS: 36415; 80051; 82310; 82565; 84156; 84520

== ENCOUNTER 2023-01-26 07:12 | Outpatient (REF) | payer MEDICARE, OTHER, SELFPAY ==
--- NOTE | ~2023-01-26 | MR_ITS ---
EXAMINATION: MR LUMBAR SPINE WITHOUT CONTRAST CLINICAL INFORMATION: Spinal stenosis COMPARISON: MRI lumbar spine 03/12/2020 TECHNIQUE: MRI of the lumbar spine was obtained using routine sequences without contrast. FINDINGS: Redemonstrated lumbar levocurvature, apex at L3-L4 with right lateral listhesis at L2-L3 and L3-L4 and left lateral listhesis at L4-L5. Milder slight dextrocurvature at L1-L2. Straightening with slight reversal of the normal lumbar lordosis. Stable grade 1 retrolisthesis at L2-L3 and L3-L4 greater than L4-L5 and grade 1 anterolisthesis at L5-S1. Stable mild chronic height loss and posterior wedging of the L5 vertebral body. No suspicious osseous lesion. Redemonstrated diffuse disc desiccation with severe disc height loss most pronounced at L1-L2 and eccentric to the right at L3-L4 and L4-L5. Multilevel small endplate Schmorl's nodes with type I greater than type II Modic endplate changes. Multilevel ventral disc osteophytes.There are multilevel degenerative changes with level by level detail as follows: L1-L2: Disc osteophyte complex with redemonstrated left foraminal disc protrusion and mild bilateral facet arthrosis with ligamentum flavum thickening. Stable mild spinal canal and left subarticular zone narrowing with impression upon the traversing left L2 nerve root. There is also abutment along the traversing right L2 nerve root in the subarticular zone. Unchanged moderate left neural foraminal stenosis encroaching upon the exiting left L1 nerve root without right neural foraminal stenosis. L2-L3: Retrolisthesis with stable to slightly increased size of annular disc bulge eccentric to the left, and mild bilateral facet arthrosis. Stable mild spinal canal stenosis and subarticular zone narrowing abutting the traversing bilateral L3 nerve roots. Unchanged moderate bilateral neural foraminal stenosis with mass effect along the extraforaminal left L2 nerve root. L3-L4: Retrolisthesis with annular disc bulge, osteophytic ridging, and inferiorly migrated right lateral recess disc extrusion. Mild to moderate bilateral facet arthrosis and ligamentum flavum thickening with small left facet joint effusion. Stable mild to moderate spinal canal stenosis and right greater than left subarticular zone narrowing with impression upon the traversing right greater than left L4 nerve roots. Stable severe right neural foraminal stenosis with compression of the exiting right L3 nerve root and mild to moderate left neural foraminal stenosis with mass effect along the extraforaminal left L3 nerve root. L4-L5: Retrolisthesis, annular disc bulge eccentric to the left, osteophytic ridging, and moderate bilateral facet arthrosis. Stable mild spinal canal and left greater than right subarticular zone stenosis with impression upon the traversing left L5 nerve root. Redemonstrated severe right neural foraminal stenosis with compression of the exiting right L4 nerve root and moderate to severe left neural foraminal stenosis with lesser mass effect along the exiting left L4 nerve root. L5-S1: Prominence of the epidural fat, anterolisthesis, posterior disc uncovering/disc bulge with superimposed bilateral foraminal disc protrusions/extrusions, and advanced bilateral facet arthrosis with small right facet joint effusion. Stable mild to moderate thecal sac effacement. Unchanged severe bilateral subarticular zone stenosis. The conus medullaris terminates at the level of T12-L1. The distal spinal cord is normal in appearance. . No epidural fluid collection, hematoma, or mass. There is moderate fatty atrophy of the paraspinal musculature. Prostatomegaly. Simple appearing bilateral renal cysts not requiring further imaging follow-up. Incidental prominence of the cisterna chyli. Colonic diverticulosis. The abdominal aorta is of normal contour and caliber. MR/MR lumbar spine wo con IMPRESSION: Advanced multilevel lumbar spondylosis, stable since prior. There is mild to moderate spinal canal stenosis at L3-L4 and mild spinal canal stenosis at L2-L3 and L4-L5. Varying degrees of subarticular zone and neural foraminal stenosis as described with multilevel nerve root compression. Neural foraminal stenosis is worst and severe on the right at L3-L4 and L4-L5 with compression of the exiting right L3 and right L4 nerve roots, respectively.
== END 2023-01-26 07:13 | disposition home or self-care (01) ==
LOC: HO.MRI 07:12
PROVIDERS: PCP Internal Medicine; Visit Provider Internal Medicine
DX: M48.061 Spinal stenosis, lumbar region without neurogenic claudication (principal)
CPT/HCPCS: 72148

== ENCOUNTER 2023-03-12 11:00 | Outpatient (AMB) | payer MEDICARE, OTHER, SELFPAY ==
--- NOTE | 2023-03-12 11:31 | A.SPINEOV_ITS ---
Intake Intake Visit Reasons: Low back pain Allergies No Known Allergies Allergy (Mild, Verified 10/28/22 15:07) NONE Assessment & Plan Assessment & Plan (1) Lumbago: Code(s): M54.50 - Low back pain, unspecified Plan Dear Dr. Timmons, Thank you for referring Josh to our office today. He is a pleasant 82-year-old male who comes in today with a chief complaint of low back pain which has been slow in onset and chronic for the last 3 years. He reports no inciting incident, and no lower extremity symptoms. He reports no numbness, tingling, or weakness. He reports that his low back pain is worse with standing and walking, but does not restrict his ability to walk long distances. Of note he reports 100% relief of pain which he rates as a 0/10 pain with lying down. He also reports relief of pain when he is able to support himself on a shopping cart at the grocery store. He reports that he has tried multiple rounds of physical therapy (8 in total), urgent care physician, acupuncture, several different types of cortisone injections, and stretching/ general exercise without alleviation of symptoms. He has also tried multiple rfzm-zav-[id number] remedies w ithout relief of pain. He is now at the point where his pain continues to worsen, and is significantly affecting his quality of life. Therefore, he is now placed for he is willing to consider a potential surgical option. 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 Social hx: Patient does not smoke, reports no substance use. Medications: Eliquis, vitamin-C, atorvastatin, levothyroxine, losartan, metoprolol, Nifedipine, MVI, Omeprazole, MVI. Allergies: NKDA. Physical exam: Patient has 5/5 strength in his upper and lower extremities. Reflexes are 2+ and intact. Sensation is grossly intact. No neurological deficits. The patient ambulates well with assistance of a cane, rises from seated position without difficulty. (-) Bhatti's, (-) clonus. Imaging review: MRI of the lumbar spine shows diffuse spondylosis with severe DDD, levoscoliosis noted in the lumbar spine, apex at L3-4, L4-5. Bilateral foraminal stenosis at L3-L4 and L4-L5, worse on the right. Spondylolithesis at L5-S1. X-rays of the lumbar spine show degenerative scoliosis of the lumbar spine that has worsened significantly on imaging comparison from 2008-present. Impression: Josh is 82-year-old male who comes in today with a chief complaint of longstanding (3 years) low back pain that has worsened as the years have progressed. He has noticed the most significant changes in his low back pain over the course of last 3 years, stating that is now to the point where he is restricted from completing activities which he enjoys. He also states that he now dreads waking up in the morning because he knows that trying to get out of bed and move around will induce significant severe pain. He has no radicular symptoms, and no significant weakness of his lower extremities despite imaging showing moderate to severe foraminal stenosis in the lumbar spine. His significant back pain that is relieved with lying down his likely due to the progression of his degenerative disc disease and degenerative scoliosis. Progression of both his degenerative disc disease and his degenerative scoliosis have been noted by reviewing his imaging taken between 2007-present. he seems to have moderately good bone quality based on previous CT scan. It is likely that the solution that will giovani Josh some pain relief is a multi-level fusion to address both his DDD and scoliosis. I will need to discuss this case with Dr. Trevino and see what potential interventions he would be willing to offer Josh. He was informed that I will call him once the case discussed with Dr. Trevino. We briefly discussed what a multi-level fusion surgery would entail and described the procedure to the patient, being sure to discuss realistic outcomes (likely estimate of 50% pain relief, possible 3-6 month healing course). He und erstands and would like to proceed with surgical recommendations. He will need to come off his Eliquis for the procedure if he is scheduled for surgery, which we discussed. 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 Thank you for allowing us to care for your patient. The total time spent with this visit with this patient was 60 minutes reviewing history, physical exam, MRI & XR imaging review, and implementation of treatment plan or further diagnostic testing. Monty Trevino MD,PhD [facility] Orders: Orders XR lumbar spine 4V min Today M43.10 - Spondylolisthesis, site unspecified Coding Level of Care Code New Pt Level 5 (50381) Diagnoses Lumbago M54.50
== END 2023-03-12 12:40 | disposition home or self-care (01) ==
PROVIDERS: PCP Internal Medicine; Referring Provider Internal Medicine; Visit Provider Physician Assistant
DX: M54.50 Low back pain, unspecified (principal)
CPT/HCPCS: 99205

== ENCOUNTER 2023-03-12 11:00 | Outpatient (REF) | payer MEDICARE, OTHER, SELFPAY ==
--- NOTE | ~2023-03-12 | XR_ITS ---
EXAMINATION: XR LUMBOSACRAL SPINE WITH OBLIQUES CLINICAL INFORMATION: Spondylolisthesis. COMPARISON: MRI lumbar spine 01/27/2023, CT abdomen and pelvis 04/01/2022. TECHNIQUE: 4 views of the lumbar spine including AP, lateral, flexion and extension views. FINDINGS: Metallic hardware projects over the lower pelvis. Bones are diffusely demineralized. Degenerative changes in the partially imaged lower thoracic spine. Advanced atherosclerotic aortoiliac calcifications. Levoscoliosis, apex at L3-L4 redemonstrated. Straightening of the normal lumbar lordosis. Mild grade 1 retrolisthesis of L2 on L3, L3 on L4 and L4 on L5 redemonstrated. Facet arthritis in the wob-mz-kusog lumbar spine. Advanced multilevel lumbar spondylosis with multilevel loss of disc space height and degenerative changes most marked at L1-L2, L3-L4 and L4-L5. XR/XR lumbar spine 4V min IMPRESSION: Advanced multilevel degenerative changes in the lumbar spine.
== END 2023-03-12 11:01 | disposition home or self-care (01) ==
LOC: HO.HOSX 11:00
PROVIDERS: PCP Internal Medicine; Referring Provider Internal Medicine; Visit Provider Physician Assistant
DX: M43.10 Spondylolisthesis, site unspecified (principal); M54.50 Low back pain, unspecified
CPT/HCPCS: 72110; 99202

== ENCOUNTER 2023-03-24 09:59 | Outpatient (AMB) | payer MEDICARE, OTHER, SELFPAY ==
--- NOTE | 2023-03-24 10:20 | HO.NEPHOV_ITS ---
HPI HPI Comments History of Present Illness Details I had the privilege of seeing Josh in the office in follow-up of his chronic kidney disease and hypertension. He has been having ongoing back pain and is going to undergo surgical intervention. He is closely followed by his oncologist for follow up of his lymphoma. He does not have any chest pain, shortness of breath, nausea, vomiting, diarrhea, hematuria or pedal edema. He does not take any excessive nonsteroidal anti-inflammatory medications. He has no dizziness. He takes losartan and nifedipine which is tolerating well. His gtkjedtk-gm-zad checks his blood pressure at home and has been fairly well controlled. His last serum creatinine was 1.69. [facility] Medical History (Updated 03/26/23 @ 10:27 by Checo Greenberg MD) Lumbar spondylitis Degenerative lumbar spinal stenosis Atrial fibrillation Leg edema Apical mural thrombus Arthritis Hiatal hernia Hypothyroidism HTN (hypertension) Rosacea Basal cell carcinoma Lymphadenopathy Surgical History Hx of biopsy Hx of colonoscopy Hx of tonsillectomy Hx of total knee replacement Family History Father Heart disease Social History Household Members: Spouse Housing: House Are you a primary career consultant to a significant other at home: Yes () Do you presently have visiting nurse or other home services: No Alcohol intake: current Alcohol intake frequency: holidays/special occasions only Alcohol type: beer Patient Tobacco Use Status: Former Tobacco user Quit Date: 1970 Tobacco use type: Cigarette Cigarette Packs Per Day: 1 Advance Directives Date on File: 05/27/21 service: Yes Current occupational status: retired Current occupation: [employer] Current occupational exposures/hazards: No Vital Signs 03/24/23 10:21 Height 5 ft 8 in Weight 160 lb 2 oz BMI 24.3 BP 140/60 H Blood Pressure Location Rt brachial Pulse 56 Pulse Source Pulse Oximeter Physical Exam Vital Signs: Last Vital Signs Pulse 56 03/24/23 10:21 BP 140/60 H 03/24/23 10:21 BMI result Body Mass Index 24.3 Const General: comfortable and no acute distress Orientation/consciousness: patient oriented x3 HEENT Head: Yes normocephalic Mouth: Normal oral and palatal mucosa present Eyes EOM: EOMs intact bilaterally Neck Neck: Yes supple Resp Auscultation: clear to auscultation bilaterally Cardio Jugular venous distension: no JVD Rate: regular rate GI Palpation (GI): Soft to palpation Auscultation: normal bowel sounds General: Yes no CVA tenderness Back/Spine/Pelvis Back: no CVA tenderness Skin General skin exam: no rashes or lesions noted Neuro General: patient oriented x3 and moves all extremities Extrem General: Yes no pedal edema Assessment & Plan Assessment & Plan (1) CKD (chronic kidney disease) stage 3, GFR 30-59 ml/min: Code(s): N18.30 - Chronic kidney disease, stage 3 unspecified Qualifiers: Chronic kidney disease stage 3 subtype: stage 3a (GFR 45-59) Qualified Code(s): N18.31 - Chronic kidney disease, stage 3a (2) HTN (hypertension): Code(s): I10 - Essential (primary) hypertension Qualifiers: Hypertension type: primary hypertension Qualified Code(s): I10 - Essential (primary) hypertension Plan Josh has longstanding CKD and hypertension. His renal functions are pretty stable. His blood pressure is well controlled. He is tolerating angiotensin receptor kamini. He does not take any excessive nonsteroidal anti- inflammatories. I asked him to cut down the dose of vitamin-C. I did not make any medication changes today. All his questions were answered. Follow-up blood work and urine studies were ordered. Time spent for patient encounter, documentation & retrieval of data 23 minutes. Orders: Orders Electrolytes 03/24/23 I10 - Essential (primary) hypertension, N18.30 - Chronic kidney disease, stage 3 unspecified Blood Urea Nitrogen 03/24/23 I10 - Essential (primary) hypertension, N18.30 - Chronic kidney disease, stage 3 unspecified Calcium 03/24/23 I10 - Essential (primary) hypertension, N18.30 - Chronic kidney disease, stage 3 unspecified Creatinine 03/24/23 I10 - Essential (primary) hypertension, N18.30 - Chronic kidney disease, stage 3 unspecified Protein Creatinine Ratio, Ur 03/24/23 I10 - Essential (primary) hypertension, N18.30 - Chronic kidney disease, stage 3 unspecified Coding Level of Care Code Est Pt Level 3 (87515) Diagnoses Stage 3a chronic kidney disease N18.31 Chronic kidney disease stage 3 subtype: stage 3a (GFR 45-59) Primary hypertension I10 Hypertension type: primary hypertension
[2023-03-24 10:21] VITALS: BP 140/60; PULSE 56; BMI 24.3
== END 2023-03-24 11:08 | disposition home or self-care (01) ==
PROVIDERS: PCP Internal Medicine; Visit Provider Internal Medicine Nephrology
DX: N18.31 Chronic kidney disease, stage 3a (principal); I12.9 Hypertensive chronic kidney disease with stage 1 through stage 4 chronic kidney disease, or unspecified chronic kidney disease
CPT/HCPCS: 99214

== ENCOUNTER → 2023-03-24 09:59 | Outpatient (BNVA) | payer MEDICARE, OTHER, SELFPAY | PROVIDERS: PCP Internal Medicine; Visit Provider Internal Medicine Nephrology | DX: I12.9 Hypertensive chronic kidney disease with stage 1 through stage 4 chronic kidney disease, or unspecified chronic kidney disease (principal); N18.31 Chronic kidney disease, stage 3a | CPT/HCPCS: 99212 ==

== ENCOUNTER 2023-05-11 09:51 | Outpatient (AMB) | payer MEDICARE, OTHER, SELFPAY ==
--- NOTE | 2023-05-11 10:06 | A.OFFVIS_ITS ---
Intake Vital Signs 05/11/23 10:07 Height 5 ft 7 in Weight 155 lb 3.287 oz BMI 24.3 BP 150/66 H Blood Pressure Location Lt brachial Position Sitting Pulse 47 L Intake Visit Reasons: 6 mth f/up/Confirmed Intake Note: 6 month follow up w. EKG [place] Program Technician Required: No Accompanied by: Self / Same As Patient Allergies No Known Allergies Allergy (Mild, Verified 05/11/23 10:07) NONE Medication List - Last Reconciled 05/11/23 by Darwin Valadez MD apixaban (Eliquis) 2.5 mg PO BID 90 days ascorbic acid (vitamin C) 500 mg PO DAILY atorvastatin 20 mg PO BEDTIME levothyroxine 75 mcg PO DAILY@0630 losartan 50 mg See Protocol PO BID 90 days metoprolol tartrate 100 mg PO BID multivitamin 1 tab PO DAILY nifedipine ER (Adalat CC) 30 mg PO BID omeprazole 20 mg PO DAILY@0630 HPI HPI Comments History of Present Illness Details Josh returns for follow-up regarding various issues including stress- induced cardiomyopathy, LV thrombus, atrial fibrillation among others. In 2020, he was admitted to the hospital for small bowel obstruction. In that setting, developed what was thought to be stress-induced cardiomyopathy, left ventricular apical thrombus as well as atrial fibrillation. He was appropriately treated for these and discharged home. Prior to this, no significant cardiac issues at all. He had a history of hypertension on appropriate medications prior to hospitalization. He also carries a diagnosis of lymphoma but stable. Otherwise, no cardiac symptoms at all but his main problem is rather back pain. He states that he has an extensive amount of pain and hence was planning to go for back surgery next few weeks. [facility] Medical History (Updated 05/11/23 @ 10:18 by Darwin Valadez MD) Lumbar spondylitis Degenerative lumbar spinal stenosis Atrial fibrillation Leg edema Apical mural thrombus Arthritis Hiatal hernia Hypothyroidism HTN (hypertension) Rosacea Basal cell carcinoma Lymphadenopathy Surgical History Hx of biopsy Hx of colonoscopy Hx of tonsillectomy Hx of total knee replacement Family History Father Heart disease Social History Household Members: Spouse Housing: House Are you a primary outdoor emergency care technician to a significant other at home: Yes () Do you presently have visiting nurse or other home services: No Alcohol intake: current Alcohol intake frequency: holidays/special occasions only Alcohol type: beer Patient Tobacco Use Status: Former Tobacco user Quit Date: 1970 Tobacco use type: Cigarette Cigarette Packs Per Day: 1 Advance Directives Date on File: 05/27/21 service: Yes Current occupational status: retired 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 Current occupational exposures/hazards: No Review of Systems Const Denies weakness ENT Denies dizziness Card Denies chest pain, Denies chest pain with activity, Denies syncope, Denies rapid heart rate, Denies pedal edema, Denies edema, Denies leg edema, Denies lightheadedness, Denies palpitations, Denies dyspnea, Denies dyspnea on exertion and Denies orthopnea Resp Denies cough, Denies dyspnea and Denies dyspnea on exertion GI Denies hematochezia and Denies change in stool character Musc Denies abnormal gait, Denies muscle cramps, Denies muscle weakness, Denies numbness, Denies radiating pain into limb and Denies tingling Neuro Denies abnormal gait, Denies dizziness, Denies syncope, Denies numbness, Denies tingling and Denies weakness Endo Denies palpitations Physical Exam Vital Signs: Last Vital Signs Pulse 47 L 05/11/23 10:07 BP 150/66 H 05/11/23 10:07 BMI result Body Mass Index 24.3 Const General: comfortable and no acute distress Orientation/consciousness: patient oriented x3 HEENT Other: Unremarkable Head: Yes normal to inspection Neck Neck: Yes normal visual inspection Chest Chest palpation & inspection: normal inspection of the chest Resp Auscultation: clear to auscultation bilaterally Cardio Palpation: normal PMI Heart sounds: S1 normal heart sound present, S2 normal heart sound present, no gallops, no murmurs and no rubs GI Palpation (GI): Soft to palpation Back/Spine/Pelvis Other: unremarkable Skin General skin exam: no rashes or lesions noted Neuro General: patient oriented x3 Extrem General: Yes normal to inspection Psych Mental Status: mental status grossly normal Office Procedures EKG Details: EKG with sinus bradycardia at 47/Min; leftward axis and left anterior fascicular block; borderline [place] prolongation 204 millisecond; [place]. [id number], Complete Assessment & Plan Assessment & Plan (1) Cardiomyopathy: Code(s): I42.9 - Cardiomyopathy, unspecified Plan: In the most recent echocardiogram, LVEF 60%. In the past, as low as 25-30%. 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 Perfusion imaging is not showing any clear-cut ischemic findings. Clinically, he has got absolutely no symptoms. (2) Paroxysmal atrial fibrillation: Code(s): I48.0 - Paroxysmal atrial fibrillation Plan: EKG during time of hospitalization with atrial fibrillation. Continue Eliquis. He is on appropriate dose for his age and kidney function. (3) Apical mural thrombus: Code(s): I51.3 - Intracardiac thrombosis, not elsewhere classified Plan: Apical thrombus seen on the echocardiogram from hospitalization. On anticoagulation. (4) Essential hypertension: Code(s): I10 - Essential (primary) hypertension Plan: Blood pressure is on the higher side but he states that it is mainly because of back pain and as soon as he starts walking the pressure goes up. Apparently on other occasions it is lower than this. Suspect he still runs high but may not be as much as this. Currently on combination of beta-blockers, nifedipine as well as losartan. (5) Atherosclerotic cardiovascular disease: Code(s): I25.10 - Atherosclerotic heart disease of [place] coronary artery without angina pectoris Plan: Myocardial perfusion imaging study from 2020 shows no evidence of any ischemia or infarction. At his age, still suspect underlying coronary disease. Clinically, no symptoms. (6) Preoperative cardiovascular examination: Code(s): Z01.810 - Encounter for preprocedural cardiovascular examination Plan: Plans for back surgery. Cardiac risks including myocardial infarction rare occurrence of discussed. He understands this quite well. However, he strongly feels that his back pain is so bad that he would like to take any chance and go for the surgery. Hence may proceed. Intermediate risk. Orders: Orders CA echo transthoracic complete 6 Months I25.10 - Atherosclerotic heart disease of [place] coronary artery without angina pectoris, I42.9 - Cardiomyopathy, unspecified, I77.89 - Other specified disorders of arteries and arterioles Coding Level of Care Code Est Pt Level 4 (37594) Diagnoses Cardiomyopathy I42.9 Paroxysmal atrial fibrillation I48.0 Apical mural thrombus I51.3 Essential hypertension I10 Atherosclerotic cardiovascular disease I25.10 Preoperative cardiovascular examination Z01.810 CPT Codes EKG - CPT: 00792-[id number], Complete ([id number])
[2023-05-11 10:07] VITALS: BP 150/66; PULSE 47; BMI 24.3
== END 2023-05-11 10:24 | disposition home or self-care (01) ==
PROVIDERS: PCP Internal Medicine; Visit Provider Internal Medicine
DX: I42.9 Cardiomyopathy, unspecified (principal); I48.0 Paroxysmal atrial fibrillation; I51.3 Intracardiac thrombosis, not elsewhere classified; I10 Essential (primary) hypertension; I25.10 Atherosclerotic heart disease of native coronary artery without angina pectoris; Z01.810 Encounter for preprocedural cardiovascular examination
CPT/HCPCS: 93010; 99214

== ENCOUNTER → 2023-05-11 09:51 | Outpatient (BNVA) | payer MEDICARE, OTHER, SELFPAY | PROVIDERS: PCP Internal Medicine; Visit Provider Internal Medicine | DX: Z01.810 Encounter for preprocedural cardiovascular examination (principal); I42.9 Cardiomyopathy, unspecified; I48.0 Paroxysmal atrial fibrillation; I10 Essential (primary) hypertension; I25.10 Atherosclerotic heart disease of native coronary artery without angina pectoris; I51.3 Intracardiac thrombosis, not elsewhere classified; Z79.01 Long term (current) use of anticoagulants | CPT/HCPCS: 93005; 99212 ==

== ENCOUNTER 2023-05-12 10:03 | Outpatient (AMB) | payer MEDICARE, OTHER, SELFPAY ==
--- NOTE | 2023-05-12 10:43 | HO.SPINEOV ---
Intake Intake Visit Reasons: Meet Dr. Trevino Intake Note: Mr. Abdul is here today to discuss surgical options. [place] Required: No Allergies No Known Allergies Allergy (Mild, Verified 05/11/23 10:07) NONE Assessment & Plan Assessment & Plan (1) Scoliosis of lumbar region due to degenerative disease of spine in adult: Code(s): M41.56 - Other secondary scoliosis, lumbar region Plan Dear colleague, On 05/12/2019 for a preoperative visit with Josh Abdul. He is scheduled to undergo an L1 to S1 lumbar fusion. Specifically L1-L3 would be done through an oblique lumbar lateral interbody fusion and L3-S1 will be done through an oblique lumbar interbody fusion with the assistance of , will provide access to the L5-S1 region. He is going to see his primary care physician and pre testing. He was cleared by Cardiology and is allowed to stop his Eliquis. All questions and concerns were answered. I spent 25 minutes in this consult discussing the procedure and answering questions. Garrett Trevino MD, PhD Spine Fellowship Trained Neurosurgeon Director, [facility] Coding Level of Care Code Est Pt Level 3 (83219) Diagnoses Scoliosis of lumbar region due to degenerative disease of spine in adult M41.56
== END 2023-05-12 11:06 | disposition home or self-care (01) ==
PROVIDERS: PCP Internal Medicine; Visit Provider Neurological Surgery
DX: M41.56 Other secondary scoliosis, lumbar region (principal)
CPT/HCPCS: 99213

== ENCOUNTER → 2023-05-12 10:03 | Outpatient (BNVA) | payer MEDICARE, OTHER, SELFPAY | PROVIDERS: PCP Internal Medicine; Visit Provider Neurological Surgery | DX: Z98.1 Arthrodesis status (principal); M41.56 Other secondary scoliosis, lumbar region | CPT/HCPCS: 99212 ==

== ENCOUNTER 2023-05-27 10:02 | Outpatient (REF) | payer MEDICARE, OTHER, SELFPAY ==
[2023-05-27 10:22] LABS: MANUAL DIFF FLAG NO
[2023-05-27 10:31] LABS: Appearance Urine Clear; Color Urine Yellow; Glucose Urine UA Negative (Negative); Leukocyte Esterase Urine Negative (Negative); Nitrite Urine Negative (Negative); PH 6.5 (5.0-9.0); UMIC TRIGGER UA YES; Urine Blood Trace (Negative); Urine Ketones Negative (Negative); Urine Protein 300 (3+) mg/dL (Neg-Trace)
[2023-05-27 10:37] LABS: Bacteria Urine None Seen (None Seen); Hyaline Casts Urine 0-2 /LPF (0-2); RBC Urine 0-2 /HPF (0-2); Squamous Epithelial Cell Urine 0-2 /HPF (0-2); WBC Urine 0-5 /HPF (0-5)
[2023-05-27 10:40] LABS: Basophils Absolute Auto 0.1 X10*3/uL (0.0-0.2); Basophils Percent Auto 1.1 % (0-2); Eosinophils Absolute Auto 0.2 X10*3/uL (0.0-0.4); Eosinophils Percent Auto 5.5 % (0-4); Hematocrit 37.1 % (42.0-52.0); Hemoglobin 12.5 g/dl (14.0-18.0); Imm Gran Abs Auto 0.02 X10*3/uL (0.00-0.03); Imm Gran Pct Auto 0.5 % (0.0-0.4); Lymphocytes Absolute Auto 0.5 X10*3/uL (1.2-4.9); Lymphocytes Percent Auto 12.4 % (20-40); Mean Corpuscular HGB Conc 33.7 g/dl (31.0-36.0); Mean Corpuscular Hemoglobin 32.5 pg (27.0-33.0); Mean Corpuscular Volume 96.4 fL (80.0-98.0); Mean Platelet Volume 10.2 fL (9.4-12.4); Monocytes Absolute Auto 0.7 X10*3/uL (0.1-1.2); Monocytes Percent Auto 16.3 % (2-11); Neutrophils Absolute Auto 2.8 x10*3/uL (2.0-8.3); Neutrophils Percent Auto 64.2 % (45-73); Platelet Count 214 X10*3/uL (160-400); Red Blood Count 3.85 X10*6/uL (4.60-5.80); Red Cell Distribution Width 12.8 % (11.0-16.0); White Blood Count 4.4 X10*3/uL (4.8-10.8)
[2023-05-27 11:24] LABS: Alanine Aminotransferase 23 U/L (0-40); Alkaline Phosphatase 79 U/L (39-117); Anion Gap 11 (12-20); Aspartate Amino Transferase 27 U/L (5-37); Bilirubin Total 0.6 mg/dL (0.0-1.0); Blood Urea Nitrogen 28 mg/dL (9-16); Calcium 9.2 mg/dL (8.4-10.2); Carbon Dioxide 25 mmol/L (22-29); Chloride 107 mmol/L (96-108); Cholesterol 182 mg/dL (<200); Estimated Glomerular Filt Rate 32; Glucose Random 101 mg/dL (60-115); HDL Cholesterol 66 mg/dL (>40); LDL Cholesterol Calculated 94 mg/dL (<100); Potassium 4.4 mmol/L (3.3-5.1); Sodium 139 mmol/L (135-145); Total Protein 6.8 g/dL (6.5-8.0); Triglycerides 111 mg/dL (<150)
[2023-05-27 11:42] LABS: Thyroid Stimulating Hormone 1.06 uIU/mL (0.32-4.0)
== END 2023-05-27 10:03 | disposition home or self-care (01) ==
LOC: HO.10HDL 10:02
PROVIDERS: Visit Provider Internal Medicine
DX: I12.9 Hypertensive chronic kidney disease with stage 1 through stage 4 chronic kidney disease, or unspecified chronic kidney disease (principal); N18.32 Chronic kidney disease, stage 3b; E78.00 Pure hypercholesterolemia, unspecified
CPT/HCPCS: 36415; 80053; 80061; 81001; 84443; 85025

== ENCOUNTER 2023-05-28 11:27 | Outpatient (AMB) | payer MEDICARE, OTHER, SELFPAY ==
[2023-05-28 11:31] VITALS: BP 130/70; PULSE 55; O2SAT 100; BMI 24.6
--- NOTE | 2023-05-28 11:31 | HO.NEPHOV ---
HPI HPI Comments History of Present Illness Details I had the privilege of seeing Josh in the office in follow-up of his chronic kidney disease and hypertension. He has been having ongoing back pain and is going to undergo surgical intervention upcoming week. His serum creatinine has gone up as well as his serum potassium. He was accompanied by his daughter ( who is an retail wireless sales representative) during this visit. He is closely followed by his oncologist for follow up of his lymphoma. He does not have any chest pain, shortness of breath, nausea, vomiting, diarrhea, hematuria or pedal edema. He does not take any excessive nonsteroidal anti-inflammatory medications. He has no dizziness. He takes losartan and nifedipine which he had been tolerating well. His repeat potassium has been normal. His jbhydijl-kz-yvu checks his blood pressure at home and has been fairly well controlled. [facility] Medical History (Updated 05/31/23 @ 18:54 by Checo Greenberg MD) CKD (chronic kidney disease) stage 3, GFR 30-59 ml/min Marginal zone B-cell lymphoma Hx of small bowel obstruction Lumbar spondylitis Degenerative lumbar spinal stenosis Atrial fibrillation Leg edema Apical mural thrombus Arthritis Hiatal hernia Hypothyroidism HTN (hypertension) Rosacea Basal cell carcinoma Lymphadenopathy Surgical History Hx of biopsy Hx of colonoscopy Hx of tonsillectomy Hx of total knee replacement Family History Father Heart disease Social History Household Members: Spouse Housing: House Are you a primary career coach to a significant other at home: Yes () Do you presently have visiting nurse or other home services: Yes (technology specialist for ) Alcohol intake: current Alcohol intake frequency: holidays/special occasions only Alcohol type: beer Patient Tobacco Use Status: Former Tobacco user Quit Date: 1970 Tobacco use type: Cigarette Cigarette Packs Per Day: 1 Use of substances other than those prescribed or required for medical reasons: No Have you been hit, kicked, punched, or otherwise hurt by someone within the past year? If so, by whom?: No Do you feel safe in your current relationship?: Yes Is there a partner from a previous relationship who is making you feel unsafe now?: No Are you made to feel afraid or neglected: No Are you DNR?: No Advance Directives: Yes Advance Directives Information Provided: No Advance Directives on File: Yes Advance Directives Date on File: 05/27/21 Do you have thoughts of harming others: None Do you have a plan to hurt others: No Plan Recently lost weight without trying: No Eating poorly because of decreased appetite: No Nutrition Risks: No Nutritional Risk Poor oral hygiene: No service: Yes Current occupational status: retired 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 Current occupational exposures/hazards: No Vital Signs 05/28/23 11:31 Height 5 ft 7 in Weight 157 lb 4 oz BMI 24.6 BP 130/70 Blood Pressure Location Rt brachial Position Sitting Pulse 55 Pulse Source Pulse Oximeter Pulse Oximetry (%) 100 Oxygen Delivery Method Room Air Physical Exam Vital Signs: Last Vital Signs Pulse 55 05/28/23 11:31 BP 130/70 05/28/23 11:31 Pulse Ox 100 05/28/23 11:31 Oxygen Delivery Method Room Air 05/28/23 11:31 BMI result Body Mass Index 24.6 Const General: comfortable and no acute distress Orientation/consciousness: patient oriented x3 HEENT Head: Yes normocephalic Mouth: Normal oral and palatal mucosa present Eyes EOM: EOMs intact bilaterally Neck Neck: Yes supple Resp Auscultation: clear to auscultation bilaterally Cardio Jugular venous distension: no JVD Rate: regular rate GI Palpation (GI): Soft to palpation Auscultation: normal bowel sounds General: Yes no CVA tenderness Back/Spine/Pelvis Back: no CVA tenderness Skin General skin exam: no rashes or lesions noted Neuro General: patient oriented x3 and moves all extremities Extrem General: Yes no pedal edema Assessment & Plan Assessment & Plan (1) HTN (hypertension): Code(s): I10 - Essential (primary) hypertension Qualifiers: Hypertension type: primary hypertension Qualified Code(s): I10 - Essential (primary) hypertension (2) CKD (chronic kidney disease) stage 3, GFR 30-59 ml/min: Code(s): N18.30 - Chronic kidney disease, stage 3 unspecified Qualifiers: Chronic kidney disease stage 3 subtype: stage 3a (GFR 45-59) Qualified Code(s): N18.31 - Chronic kidney disease, stage 3a (3) KATHLEEN (acute kidney injury): Code(s): N17.9 - Acute kidney failure, unspecified Plan Josh has longstanding CKD and hypertension. He has had KATHLEEN with hyperkalemia. His serum K has normalized. I asked him to hold losartan pauline operatively. His blood pressure is well controlled. He does not take any excessive nonsteroidal anti-inflammatories. I asked him to cut down the dose of vitamin-C. I did not make any other medication changes today. All his questions were answered. Follow-up blood work was ordered. Orders: Orders Electrolytes 05/28/23 I10 - Essential (primary) hypertension, N18.30 - Chronic kidney disease, stage 3 unspecified Blood Urea Nitrogen 05/28/23 I10 - Essential (primary) hypertension, N18.30 - Chronic kidney disease, stage 3 unspecified Creatinine 05/28/23 I10 - Essential (primary) hypertension, N18.30 - Chronic kidney disease, stage 3 unspecified Coding Level of Care Code Est Pt Level 4 (74692) Diagnoses Primary hypertension I10 Hypertension type: primary hypertension Stage 3a chronic kidney disease N18.31 Chronic kidney disease stage 3 subtype: stage 3a (GFR 45-59) KATHLEEN (acute kidney injury) N17.9 Results Reviewed Nephrology Results: Hgb 12.5 g/dl (14.0-18.0) L 05/27/23 WBC 4.4 X10*3/uL (4.8-10.8) L 05/27/23 Plt Count 214 X10*3/uL (160-400) 05/27/23 Sodium 139 mmol/L (135-145) 05/27/23 Potassium 4.4 mmol/L (3.3-5.1) 05/27/23 Chloride 107 mmol/L (96-108) 05/27/23 Carbon Dioxide 25 mmol/L (22-29) 05/27/23 BUN 39 mg/dL (9-16) H 05/31/23 Creatinine 2.30 mg/dL (0.5-1.4) H 05/31/23 Calcium 9.2 mg/dL (8.4-10.2) 05/27/23 Urine Protein 300 (3+) mg/dL (Neg-Trace) H 05/27/23
== END 2023-05-28 12:01 | disposition home or self-care (01) ==
PROVIDERS: PCP Internal Medicine; Visit Provider Internal Medicine Nephrology
DX: I10 Essential (primary) hypertension (principal); N18.31 Chronic kidney disease, stage 3a; N17.9 Acute kidney failure, unspecified
CPT/HCPCS: 99214

== ENCOUNTER → 2023-05-28 11:27 | Outpatient (BNVA) | payer MEDICARE, OTHER, SELFPAY | PROVIDERS: PCP Internal Medicine; Visit Provider Internal Medicine Nephrology | DX: I12.9 Hypertensive chronic kidney disease with stage 1 through stage 4 chronic kidney disease, or unspecified chronic kidney disease (principal); N18.31 Chronic kidney disease, stage 3a; N17.9 Acute kidney failure, unspecified | CPT/HCPCS: 99212 ==

== ENCOUNTER 2023-05-31 06:15 | Inpatient (IN) | payer MEDICARE, OTHER, SELFPAY ==
[2023-05-14 15:45] VITALS: BMI 24.3
--- NOTE | 2023-05-28 09:48 | HO.ANESPROP2 ---
HPI - Anesthesia Eval Consult details Narrative: 83yo M for L1-L3 Transkambin Lumbar Interbody Fusion, L3-S1 Oblique Lumbar Interbody Fusion Follows [facility] [place]: stress-induced cardiomyopathy, LV thrombus, atrial fibrillation (all started 2020 during [facility] admit for SBO). Last office visit 05/2023. Pt stable and Cleared for surgery, discussed increase risk with family service aide. Eliquis for afib Medically cleared by PCP Follows renal for CKD, htn. Last office visit 03/2023. Stable renal function and BP well controlled. Baseline creat ~1.6. (Creat up to 2.02 with 05/2023 labs, repeat DOS) Follows [facility] oncology for hx lymphoma with chemo. Stable at this time with monitoring only. Blood work stable. Phone PAT industrial court magistrate. No in-person eval. [facility] Active Problems Active Problems: All Active Problems (Updated 05/14/23 @ 15:44 by Alyssa Fraire, RN) Scoliosis of lumbar region due to degenerative disease of spine in adult (Acute) Preoperative cardiovascular examination (Acute) Lumbago (Acute) Spondylolisthesis (Acute) Ischial bursitis of right side (Acute) Right buttock pain (Acute) Myofascial pain (Acute) Abnormal CT scan, chest (Acute) Post covid-19 condition, unspecified (Acute) Atherosclerotic cardiovascular disease (Acute) Marginal zone B-cell lymphoma (Chronic) CKD (chronic kidney disease) stage 3, GFR 30-59 ml/min (Acute) HTN (hypertension) (Acute) Apical mural thrombus (Acute) Lumbar spondylitis (Acute) Degenerative lumbar spinal stenosis (Acute) Past Medical History Medical History (Updated 05/28/23 @ 10:01 by Gwendolyn Deluna NP) Marginal zone B-cell lymphoma CKD (chronic kidney disease) stage 3, GFR 30-59 ml/min Hx of small bowel obstruction Lumbar spondylitis Degenerative lumbar spinal stenosis Atrial fibrillation Leg edema Apical mural thrombus Arthritis Hiatal hernia Hypothyroidism HTN (hypertension) Rosacea Basal cell carcinoma Lymphadenopathy Family History Family History Father Heart disease Surgical History Surgical History Hx of biopsy Hx of colonoscopy Hx of tonsillectomy Hx of total knee replacement Social History Social History (Updated 05/14/23 @ 15:44 by Alyssa Fraire RN) Household Members: Spouse Housing: House Are you a primary adult care manager to a significant other at home: Yes () Do you presently have visiting nurse or other home services: Yes (for SUPERINTENDENT MAINTENANCE 3x week) Alcohol intake: current Alcohol intake frequency: holidays/special occasions only Alcohol type: beer Patient Tobacco Use Status: Former Tobacco user Quit Date: 1970 Tobacco use type: Cigarette Cigarette Packs Per Day: 1 Advance Directives Date on File: 05/27/21 service: Yes Current occupational status: retired 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 Current occupational exposures/hazards: No Meds Allergies Allergy/AdvReac Type Severity Reaction Status Date / Time No Known Allergies Allergy Mild NONE Verified 05/11/23 10:07 Home Medications Medication Instructions Recorded Confirmed Last Taken Type levothyroxine 75 mcg tablet 75 mcg PO DAILY@62907/24/20 05/14/23 05/26/21 History omeprazole 20 mg capsule,delayed 20 mg PO DAILY@62907/24/20 05/14/23 05/26/21 History release multivitamin 1 tab PO DAILY 05/26/21 05/14/23 05/26/21 History ascorbic acid (vitamin C) 500 mg 500 mg PO 2XW 04/29/22 05/14/23 Unknown History tablet nifedipine 30 mg tablet,extended 30 mg PO BID 05/14/23 05/14/23 Unknown History release Exam Height,Weight and Vital Signs: Height 5 ft 7 in Weight 70.307 kg Pertinent Lab Results Pertinent Lab Results: Laboratory Tests 05/17/23 09:50 Blood Type A Positive Antibody Screen NEGATIVE Laboratory Tests 05/27/23 10:06 WBC 4.4 L Hgb 12.5 L Hct 37.1 L Plt Count 214 Sodium 139 Potassium 4.4 Chloride 107 Carbon Dioxide 25 BUN 28 H Creatinine 2.02 H Narrative Narrative: EKG 05/2023 sinus bradycardia at 47/Min; leftward axis and left anterior fascicular block; borderline [place] prolongation 204 millisecond; normal corrected QT. ECHO 09/2022 Conclusions: - The left ventricular systolic function is normal. The calculated ejection fraction is 60% by biplane method. - Evidence suggests grade II (moderate) diastolic dysfunction. - There is evidence of regional wall motion abnormalities. - There is mild dilatation of the sinuses of Valsalva measuring 4.34 cm and mild dilatation of the ascending aorta measuring 4.10 cm. ND cardiolite stress test 2020 Impression: 1. Myocardial perfusion imaging study shows no evidence of any ischemia or infarction. 2. Gated LVEF is mildly diminished; 48% during stress and 49% during rest. 3. Transient ischemic dilatation not present. EKG component of the test reported separately. Assessment and Plan Assessment Anesthesia Assessment: Chart Reviewed
[2023-05-31] VITALS (10 sets, daily range): BP systolic 122–214; BP diastolic 56–103; PULSE 54–96; RESP 12–18; TEMP 36.2–36.6; O2SAT 97–100; BMI 24.3
--- NOTE | ~2023-05-31 | FL_ITS ---
EXAMINATION: XR FLUOROSCOPY WITH IMAGES CLINICAL INFORMATION: L1-L3 Trans-Kambin lumbar interbody fusion, L3-S1. COMPARISON: Lumbar spine radiographs 03/12/2023. TECHNIQUE: Fluoroscopy Supervised By: Dr. Garrett Trevino. Fluoroscopy Time: 7.4 minutes. Cumulative Dose: 283.8 mGy. DAP: 4.67 mGym2. Images: 8. FINDINGS: Imaging demonstrates sequential placement of posterior pedicular screws and interbody device placement from L1 through L5 interbody devices present at all intervening levels. At the L1 level, only a single pedicular screw is present on the left. FL/FL guidance in OR IMPRESSION: Fluoroscopy provided for intraoperative guidance. Please see Dr. Garrett Trevino' operative note for full details.
--- NOTE | 2023-05-31 06:43 | PHA.MEDREC ---
Pharmacy Consult ? Medication Reconciliation Pharmacy has completed the medication reconciliation. Reviewed med rec done by nursing
[2023-05-31] MEDS: 0.9 % Sodium Chloride 1,000 ML 100 ML IVCONT (06:46)
[2023-05-31] MEDS: Gabapentin 300 MG CAPSULE PO ×2 (06:48→20:57)
[2023-05-31] MEDS: methocarbamoL 750 MG TABLET PO (06:48)
--- NOTE | 2023-05-31 06:58 | MHC.SHP ---
Pre-Procedural Eval Section A Date of Service: 05/31/23 Section B Chief Complaint: S/P LUMBAR FUSION L1-S1 Allergies: Allergies Allergy/AdvReac Type Severity Reaction Status Date / Time No Known Allergies Allergy Mild NONE Verified 05/28/23 11:35 Review of Systems Sugical H&P ROS: Negative: Constitution, Cardiovascular, Respiratory, Neurological, Psychiatric, Hem-Onc, Allergic/Immunologic, Gastrointestinal, Genitourinary, Musculoskeletal, Integumentary, Endocrine and Eyes/Ears/Nose/Throat Exam Surgical H&P Exam: Not Evaluated: HEENT, Not Evaluated: Heart, Not Evaluated: Lungs, Not Evaluated: Extremities, Not Evaluated: Abdomen, Not Evaluated: Skin and Not Evaluated: Neurological Plan Diagnosis/Plan: Unchanged I have reviewed the history and physical. No changes have occurred unless specified. Plan remains the same, L1-L3 transkambin, L3-S1 OLIF Time Spent With Patient Time: Total time managing care of this patient today __7__ minutes.
[2023-05-31 07:09] LABS: Blood Urea Nitrogen 39 mg/dL (9-16); Creatinine Clr Calc Pharmacy 22.7; Estimated Glomerular Filt Rate 27
--- NOTE | 2023-05-31 08:11 | P.CONAN_ITS ---
[facility] Active Problems Active Problems: All Active Problems (Updated 05/28/23 @ 11:55 by Checo Greenberg MD) CKD (chronic kidney disease) stage 3, GFR 30-59 ml/min (Acute) Scoliosis of lumbar region due to degenerative disease of spine in adult (Acute) Preoperative cardiovascular examination (Acute) Lumbago (Acute) Spondylolisthesis (Acute) Ischial bursitis of right side (Acute) Right buttock pain (Acute) Myofascial pain (Acute) Abnormal CT scan, chest (Acute) Post covid-19 condition, unspecified (Acute) Atherosclerotic cardiovascular disease (Acute) HTN (hypertension) (Acute) Apical mural thrombus (Acute) Lumbar spondylitis (Acute) Degenerative lumbar spinal stenosis (Acute) Past Medical History Medical History (Updated 05/28/23 @ 11:55 by Checo Greenberg MD) CKD (chronic kidney disease) stage 3, GFR 30-59 ml/min Marginal zone B-cell lymphoma Hx of small bowel obstruction Lumbar spondylitis Degenerative lumbar spinal stenosis Atrial fibrillation Leg edema Apical mural thrombus Arthritis Hiatal hernia Hypothyroidism HTN (hypertension) Rosacea Basal cell carcinoma Lymphadenopathy Family History Family History Father Heart disease Family history of problems with anesthesia: No Surgical History Surgical History Hx of biopsy Hx of colonoscopy Hx of tonsillectomy Hx of total knee replacement History of Problems with Anesthesia: No Social History Social History Household Members: Spouse Housing: House Are you a primary rn medicare to a significant other at home: Yes () Do you presently have visiting nurse or other home services: Yes (for [employer] 3x week) Alcohol intake: current Alcohol intake frequency: holidays/special occasions only Alcohol type: beer Patient Tobacco Use Status: Former Tobacco user Quit Date: 1970 Tobacco use type: Cigarette Cigarette Packs Per Day: 1 Use of substances other than those prescribed or required for medical reasons: No Have you been hit, kicked, punched, or otherwise hurt by someone within the past year? 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 Current occupational exposures/hazards: No Meds Allergies Allergy/AdvReac Type Severity Reaction Status Date / Time No Known Allergies Allergy Mild NONE Verified 05/28/23 11:35 Active Medications: Current Medications Sodium Chloride (Ns) 1,000 mls @ 100 mls/hr IVCONT .Q10H ROCKY Last Admin: 05/31/23 06:46 Dose: 100 mls/hr Home Medications Medication Instructions Recorded Confirmed Last Taken Type levothyroxine 75 mcg tablet 75 mcg PO DAILY@62907/24/20 05/14/23 05/31/23 History omeprazole 20 mg capsule,delayed 20 mg PO DAILY@62907/24/20 05/14/23 05/31/23 History release multivitamin 1 tab PO DAILY 05/26/21 05/14/23 05/30/23 History ascorbic acid (vitamin C) 500 mg 500 mg PO 2XW 04/29/22 05/14/23 05/30/23 Hi story tablet nifedipine 30 mg tablet,extended 30 mg PO BID 05/14/23 05/14/23 05/31/23 History release Exam Height,Weight and Vital Signs: Height 5 ft 7 in Weight 70.364 kg Last Vital Signs Temp 97.9 F 05/31/23 06:44 Pulse 54 05/31/23 06:44 Resp 16 05/31/23 06:44 BP 214/79 H 05/31/23 06:44 Pulse Ox 98 05/31/23 06:44 O2 Del Method Room Air 05/31/23 06:44 Pertinent Lab Results Pertinent Lab Results: Laboratory Tests 05/17/23 05/31/23 09:50 06:47 BUN 39 H Creatinine 2.30 H Estim Creat Clear Calc 22.7 Estimated GFR 27 Blood Type A Positive Antibody Screen NEGATIVE Airway Mallampati Class: II TM Dist: >3cm Neck ROM: Full Partial: Upper Assessment and Plan Assessment Anesthesia Assessment: Anesthesia Plan Discussed and Chart Reviewed Final Anesthetic Review Family History of Problems with Anesthesia: No History of Problems with Anesthesia: No NPO: Yes ASA Class: III Final Preanesthetic Review: No Changes in Pt Med Stat, Meds/Allgs Chart Reviewed, Consent Obtained/Reviewed and Anes Risks/Benef Reviewed Patient Risk: Intermediate Procedure Risk: Intermediate Anesthetic Plan Anesthetic Plan: GA Disposition: Standard PACU
--- NOTE | 2023-05-31 09:52 | P.OP_ITS ---
Operative Note Operative Note Date of Service: 05/31/23 Narrative: The patient was brought to the operating room, positioned on the table supine and general anesthesia was administered. Patient was then turned to the right decubitus position with left side up. C-arm image was obtained in AP and lateral planes and anterior border of the spine and disk space projections were marked on the skin.The abdomen was clipped and then prepped and draped in the usual sterile fashion. After timeout was done, incision was made from 2 cm medial and inferior to the Anterior Superior iliac spine in oblique direction 6 cm long. It was brought through subcutaneous tissue and the external oblique aponeurosis in line with the skin incision and transverse and internal abdominal muscles were split along the fibers. The pre-peritoneal plane was entered, peritoneum was bluntly dissected off and iliac artery pulse was felt. Self- retaining retractor with two deep blades was inserted and peritoneum protected with moist gauzes. Left internal iliac vein was identified and dissection was carried along the medial surface of the iliac vein up to the bifurcation.A pin was placed in the body of L5 to retract the vein. The middle sacral vessels were transected and L5-S1 disc space was bluntly and sharply dissected using bipolar cautery staying directly on the surface of the spine. The midline of the disk space was marked with C-arm image guide. Dr. Trevino then proceeded with the corpectomy and fusion, which will be dictated separately by him. After this was done, hemostasis was checked and was excellent. Left ureter was examined prior to closure and was intact. There was good left external iliac artery pulse. Diluted 0.5% Marcaine and Lidocaine was injected in the fascia and subcutaneous tissue. The incision was irrigated and closed by layers using a 2-0 Vicryl for transverse fascia, 0 PDS for the external oblique, 3-0 Vicryl for subcutaneous tissue and 4-0 Monocryl for skin. Exo-fin glue was then applied.
--- NOTE | 2023-05-31 14:24 | W.PM.OPN ---
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 and lumbar spinal stenosis; lumbar back pain Procedure: 1) L3-4, L4-L5 and L5-S1 discectomy, arthrodesis and implantation cage through an oblique lumbar approach (OLIF) with intraoperative biplanar fluoroscopy imaging 2) L1 on 2 and L2-L3 oblique lateral lumbar interbody fusion (trans Kambin) with discectomy, preparation of the endplates and placement of a titanium bullet cage packed with allograft, anterior to the transverse process in modified prone position, with intraoperative biplanar fluoroscopy imaging and electrophysiological monitoring 3 posterior instrumented fusion L1-L2, L2-L3, L3-L4, L4-L5 and L5-S1 4) allograft Indication for Surgery Lumbar degenerative scoliosis Consent Informed Consent was obtained for this operation. I have explained the nature, purpose and benefits of the operation. I have discussed the risks and benefit of the operation including possible complications or adverse events with patient/family. Alternative(s) were discussed with the patient with their relative benefits and risks as well as the consequences of not accepting the operation were included in obtaining consent. Surgeon: MATHEW NEVAREZ MD, PHD Procedure Assisted By: ROYA ODELL MD and VERN Quinn Description of Procedure This 83-year-old male is suffering from severe back pain and symptoms of spinal stenosis. The pain is interfering with his daily activities and therefore offered him a minimally invasive correction of his lumbar degenerative scoliosis from L1-S1 using the oblique lateral interbody fusion for L5-S1, L4-L5 and L3-L4 and the trans Kambin oblique lateral lumbar interbody fusion for L1-L2 and L2-L3. The procedure complications were explained. The patient was consented. The patient was brought to the operating room and endotracheally intubated. The patient was put in a lateral position position with the left side up. Prep and drape was done followed by timeout. Dr. Odell, co-surgeon, provided the access to the L5-S1 disc space through an anterior, oblique approach. He will dictate the approach in a separate operative note. When the L5-S1 disc space was exposed I took over the procedure. An annulotomy was done followed by a partial discectomy. Sequential trial implants were inserted and advanced towards the posterior wall of the disc space. I completed the discectomy and prepared the endplates. Then a 27 x 40 x 12 and 6 degree lordosis 4 web cage filled with allograft was inserted into the disc space. One screw with the length 27 mm were inserted into the S1 vertebral body. The retractor was removed and hemostasis was done by Dr. Reno who closed the incision. A new incision was made in the left lower abdominal quadrant for the L3-4 and L4-5 oblique lumbar interbody fusion. The muscle fascia was opened and the 3 muscle layer was split bluntly. The retroperitoneal space was entered and sequential dilators were placed in the anterior 1/3 of the L4-5 disc space under fluoroscopic guidance. Finally a retractor was advanced over the dilators to expose the L4-5 disc space. An annulotomy was done. An elevator Garcia was used to release the disc material from the endplates and to perforate the contralateral annulus. A thorough diskectomy was done followed by endplate preparation. A 10 mm x 50 mm and 0 degree lordosis 4 web cage was inserted into the disc space under fluoroscopic guidance. Then the retractor was moved up to the L3-4 disc space where a similar procedure was performed. After the endplates were prepared a 8 mm x 50 mm insert degree lordosis 4 web cage filled with allograft was inserted into the disc space under fluoroscopic guidance. This procedure resulted in a partial correction of the lumbar degenerative scoliosis. The retractor was removed. The incision was closed in 2 layers with an 0 Vicryl for the fascia and a 3-0 Vicryl subdermal layer. This marked the end of the L3-S1 fusion through an oblique lateral approach. Accordingly the patient was turned prone on the Frantz spine table and 2 C arms were installed fluoroscopy in preparation for the oblique lateral lumbar interbody fusion L1-L2 and L2-L3. Prepping and draping was done followed by timeout. The landmarks, including spinal processes, transverse processes, disc space, endplates and pedicles are identified and marked. The following steps are taken for each specified level: L1-L2 level: Cage size 10 mm high and 33 mm long titanium; L2-L3: Cage size 10 mm high and 33 mm long titanium. The patient was turned using the rotation of the surgical table so a near direct anterior lateral approach to the lumbar spine could be achieved. A small incision was then made superior to the mid iliac crest and then using biplanar fluoroscopy visualization, under electrophysiological monitoring and stimulation, we introduced an electrophysiological probe through the retroperitoneal space into the desired disc anterior to the transverse process and then passed it into the disc space after finding a silent window. The sleeve was retained and the probe was removed, then the K wire was passed sequentially into the disc space. A dilating tube was then passed along the same route. Following this, a working channel, a working channel was then passed sequentially into the disc space. The working channel was manually held in position while a series of disc cleaning tools were passed through the channel to remove the affected disc under clear and direct biplanar fluoroscopic visualization, decompress the nerve roots and equal corticated vertebral endplates at this segment. Arthrodesis of the intervertebral space via an anterior retroperitoneal exposure was achieved through Kambin's [place] and lateral extraforaminal space. Allograft was added into the anterior disc space. The working channel was then removed. A titanium interbody cage tightly packed with allograft was then inserted into the midportion of the intervertebral disc space over a K-wire under biplanar fluoroscopic visualization and intraoperative neuro monitoring. The inter pedicular and intradiscal space was significantly enlarged and disc height was restored to worked normal anatomy there for releasing pressure on the nerve roots visual largely the spinal canal and lateral recess as well as foramen were bilateral decompressed and all bones were confined to the borders of the disc space . The final step of the procedure was to perform a posterolateral instrumented fusion from L1-S1. The following steps were taken for pedicle screw placement: A paramedian incisions was made lateral from the targeted pedicle. The muscle fascia was opened and the musculature was split bluntly to expose the posterolateral gutter.The pediguard tap was used to create a transpedicular trajectory into the vertebral body. A K wire was advanced. A specially designed instrument was advanced over the K wire to decorticate the posterolateral gutter. Pedicle screw was advanced after which the K wire was removed. Following these steps pedicle screws were placed in the bilateral L1, L2, L3, L4, L5 and S1 pedicles. Total of 12 screws were placed with the following measurements: 6.5 by 45 mm. The left L 4 and L5 pedicle screws were replaced by a 7.5 by 50 mm screw due to her poor bone quality. A 180 mm jcarlos was tunneled on the left side and locked with locking caps. A similar size jcarlos was inserted on the right side. Unfortunately the right L1 screw came out during the locking process of the jcarlos. I decided to leave the screw out as it was perfectly positioned on x-ray and a larger diameter screw would not at more stability as we are dealing with osteopenia. Therefore 120 mm jcarlos was tunneled on the right side and locked down with locking caps. The extension towers were removed. The posterolateral fusion was completed by laying down allograft in the posterolateral gutter from L1-S1. Hemostasis was done. The paramedian incisions were closed with an 0 Vicryl to fascia and 3-0 Vicryl to subdermal layer. Steri-Strips were used to approximate the incision. An OpSite with Tegaderm was used to cover the incisions. All sponge and needle counts were correct. The patient was extubated and transported in stable condition to recovery room. The physician catalog library assistant was critical for the following aspects of surgery : Interpretation of x-rays, insertion of pedicle screws and closure of the paramedian incisions. Anesthesia: General Estimated Blood Loss (ml): 100 Duration of Surgery: 6 hours Complications: None Postoperative Plan: Admit to inpatient for observation
[2023-05-31] MEDS: oxyCODONE HCl Immed Release 5 MG TABLET 10 MG PO ×2 (16:58→20:56)
--- NOTE | 2023-05-31 17:25 | HE.PHANOTE ---
RE: MED REC (ASCORBIC ACID) Patient said he no longer takes ascorbic acid 500mg.
[2023-05-31] MEDS: Acetaminophen 325 MG TABLET 975 MG PO (18:06)
[2023-05-31] MEDS: NIFEdipine ER 30 MG TAB.ER.24 PO (20:57)
[2023-05-31] MEDS: Docusate Sodium 100 MG CAPSULE PO (20:57)
[2023-05-31] MEDS: Metoprolol Tartrate 100 MG TABLET PO (20:57)
[2023-05-31] MEDS: Atorvastatin Calcium 20 MG TABLET PO (20:57)
[2023-05-31] MEDS: Losartan Potassium 50 MG TABLET PO (21:00)
[2023-06-01] MEDS: Acetaminophen 325 MG TABLET 975 MG PO ×4 (00:19→18:41)
[2023-06-01 04:00] VITALS: BP 173/78; PULSE 78; RESP 16; TEMP 36; O2SAT 99
[2023-06-01] MEDS: Levothyroxine Sodium 75 MCG TABLET PO (05:23)
[2023-06-01] MEDS: Omeprazole 20 MG CAPSULE.DR PO (05:23)
[2023-06-01] MEDS: oxyCODONE HCl Immed Release 5 MG TABLET 10 MG PO ×2 (05:24→12:03)
[2023-06-01 06:08] LABS: Anion Gap 15 (12-20); Blood Urea Nitrogen 42 mg/dL (9-16); Calcium 8.3 mg/dL (8.4-10.2); Carbon Dioxide 21 mmol/L (22-29); Chloride 108 mmol/L (96-108); Creatinine Clr Calc Pharmacy 20.6; Estimated Glomerular Filt Rate 24; Glucose Random 209 mg/dL (60-115); Potassium 4.7 mmol/L (3.3-5.1); Sodium 139 mmol/L (135-145)
[2023-06-01 07:09] VITALS: BP 145/64; PULSE 54; RESP 16; TEMP 36.1; O2SAT 99
[2023-06-01 08:04] VITALS: BP 145/64; PULSE 54; O2SAT 99
[2023-06-01] MEDS: Losartan Potassium 50 MG TABLET PO ×2 (10:25→21:02)
[2023-06-01] MEDS: Gabapentin 300 MG CAPSULE PO ×2 (10:25→21:02)
[2023-06-01] MEDS: Multivitamin TABLET 1 TAB PO (10:25)
[2023-06-01] MEDS: NIFEdipine ER 30 MG TAB.ER.24 PO ×2 (10:25→21:02)
[2023-06-01] MEDS: Docusate Sodium 100 MG CAPSULE PO ×2 (10:26→21:02)
[2023-06-01] MEDS: Metoprolol Tartrate 100 MG TABLET PO ×2 (10:26→21:02)
--- NOTE | 2023-06-01 11:36 | MHC.CM.PN ---
IMM delivered. Patient is from home with , who patient cares for d/t early dementia. Patient's son and daughter live next door and assist w/ 's care along w/ [employer] 3-5x/wk. Patient ambulates with a cane PRN, no other medical equipment. Otherwise independent. No services for patient. PCP: Eamon Hahn MD HCP: Roger Montgomery, on file and verified DP: PT is recommending [facility]. Patient has been to [facility] in the past and prefers to return there. Second choice is [facility]. Referrals out. Will need BLS. CM will continue to follow.
--- NOTE | 2023-06-01 12:16 | HO.NEURO.PN ---
Neurosurgery Operative Note Date of Service: 06/01/23 Narrative: POD 1 c/o back pain as expected, no tingling, numbness, or radiating pain down the legs. He has some mild abdominal discomfort but no nausea vomiting. He did have to be straight cath once overnight. Afebrile, vital signs stable Physical exam: Patient is awake alert oriented lying in his bed flat no acute distress, he is able to demonstrate 5/5 strength of bilateral lower extremities, abdomen mildly distended no rebound tenderness or guarding, there to left lower quadrant incisions, both of these are clean and dry with no signs of hematoma. Back dressings are clean and dry with no signs of hematoma. Impression: Postop day 1. L1- S1 minimally invasive anterior/oblique, trans Kambin approach, clinically doing okay. He is having back pain as expected. Unfortunately he has almost no affect from the Dilaudid. He is taking IV Tylenol and this as well as an really doing much. He can not take Toradol because of his kidneys. We have him on gabapentin as well. Plan will be to get him out of bed, mobilize around. We will see how he voids, given his age I suspect he has some degree of BPH. He has been tolerating liquids okay. Can go to regular diet and advance as tolerated. Dr. Trevino see the patient at bedside and agrees with the plan as outlined above
--- NOTE | 2023-06-01 14:33 | HO.POSTANES ---
Post Anesthesia Evaluation Post Anesthesia Evaluation Date of Service: 06/01/23 Vital Signs: Vital Signs Temp Pulse Resp BP Pulse Ox O2 Del Method 06/01/23 08:04 54 145/64 H 99 06/01/23 07:09 96.9 F 54 16 145/64 H 99 Room Air 06/01/23 04:00 96.8 F 78 16 173/78 H 99 Room Air Anesthesia: General Endotracheal-GETA Mental Status: Awake Pain Control: Satisfactory Nausea/Vomiting: None Hydration: Adequate Anesthesia-Related Issues: No Anes. Related Issues
[2023-06-01 15:18] VITALS: BP 118/53; PULSE 53; RESP 18; TEMP 36.3; O2SAT 96
[2023-06-01] MEDS: oxyCODONE HCl Immed Release 5 MG TABLET PO (18:42)
[2023-06-01 19:45] VITALS: BP 147/65; PULSE 57; RESP 18; TEMP 36.5; O2SAT 97
[2023-06-01] MEDS: Atorvastatin Calcium 20 MG TABLET PO (21:02)
[2023-06-02] MEDS: Acetaminophen 325 MG TABLET 975 MG PO ×5 (00:04→23:37)
[2023-06-02 03:30] VITALS: BP 138/62; PULSE 60; RESP 16; TEMP 36.8; O2SAT 97
[2023-06-02] MEDS: Levothyroxine Sodium 75 MCG TABLET PO (05:55)
[2023-06-02] MEDS: Omeprazole 20 MG CAPSULE.DR PO (05:55)
[2023-06-02] MEDS: oxyCODONE HCl Immed Release 5 MG TABLET 10 MG PO ×2 (07:16→11:20)
[2023-06-02] MEDS: Losartan Potassium 50 MG TABLET PO ×2 (07:16→20:13)
[2023-06-02] MEDS: NIFEdipine ER 30 MG TAB.ER.24 PO ×2 (07:16→20:12)
[2023-06-02] MEDS: Multivitamin TABLET 1 TAB PO (07:16)
[2023-06-02] MEDS: Docusate Sodium 100 MG CAPSULE PO ×2 (07:17→20:13)
[2023-06-02] MEDS: Gabapentin 300 MG CAPSULE PO ×2 (07:17→20:12)
[2023-06-02] MEDS: Metoprolol Tartrate 100 MG TABLET PO ×2 (07:17→20:13)
[2023-06-02 07:21] VITALS: BP 114/55; PULSE 53; RESP 18; TEMP 36.3; O2SAT 95
[2023-06-02 08:00] VITALS: O2SAT 97
--- NOTE | 2023-06-02 10:06 | HO.NEURO.PN ---
Neurosurgery Operative Note Date of Service: 06/02/23 Narrative: Postop day 2. L1-S1 minimally invasive lumbar fusion including anterior/oblique and trans Kambin approaches Patient continues report back pain, when he is standing and can be very uncomfortable but when he is in the bed seems to be okay. Denies any pain radiating down his legs. It is painful lift his legs off the bed. It gives him back discomfort. Denies any tingling numbness etc. in lower extremities. He has tolerating a regular diet, denies any abdominal pain, nausea vomiting etc.. He is passing gas. He has not had a bowel movement yet. He has been working with PT, anticipated discharge to [facility] either today or tomorrow. The patient has been having difficulty voiding. He denies any problems voiding before surgery, but currently he has been having straight cath now 3 times. The volume of urine is typically on the lower side. Afebrile, vital signs stable, occasional hypertension into the 160s and 170 systolically Physical exam: The patient is awake alert oriented no acute distress, abdomen is moderately distended, he has no rebound tenderness or guarding, he has to left lower quadrant incisions, both are clean and dry with no signs of hematoma. Back dressings have a small amount of staining but no signs of hematoma. On motor exam he demonstrates 5/5 strength with the exception of some mild guarding with flexion of his iliopsoas. Sensation is normal. Impression: Postop day 2. L1-S1 minimally invasive lumbar fusion including the anterior/oblique and trans Kambin approaches. Patient has back discomfort but is limited in what he can take. He currently is on oxycodone, and gabapentin with Tylenol. We hesitate escalate the narcotics given his age and current issues with voiding which are likely a side effect of his immobility and narcotic medications. He is neurologically intact. I spoke to his nurse this morning, we are going to give him another voiding trial since his bladder volumes were relatively low when he was straight cath. He is going to get up and move around and try to mobilize more which should help. If he is unable to void after his next trial, we will just leave a Gomez catheter and have him do a 10 day follow-up with Urology to remove the catheter or he can have it done at rehab whichever is more convenient. We anticipate he should be ready for discharge this afternoon. I left a script for his oxycodone in his chart which can be delivered to the rehab. I will update Dr. Trevino on status.
--- NOTE | 2023-06-02 10:13 | PM.DS ---
DS: Providers Provider Date of Service: 05/31/23 Date of admission: 05/31/23 06:15 Date of discharge: 06/02/23 Primary care physician: Eamon Hahn MD Admitting clinician: Garrett Trevino DS: Diagnosis Discharge Diagnosis (1) Scoliosis of lumbar region due to degenerative disease of spine in adult: Status: Acute DS: Summary Hospital Course Hospital Course: This is a very nice 83-year-old gentleman with a history of back pain and scoliosis admitted for elective L1-S1 minimally invasive anterior/oblique and trans Kambin approaches for correction of scoliosis. He underwent his procedure without complication, was brought to the PACU where he recovered from anesthesia and subsequently brought to the [address] [place] [address] to begin his recovery. Because of his history of sensitivity to narcotics and his history of chronic kidney disease, we kept him on a regimen of oxycodone, Tylenol and gabapentin. The patient had no abdominal pain, norany nausea and vomiting, so was able to advance his diet without any issues. His 1st postoperative night was unremarkable with the exception that he was unable to void and had to be straight cathed. He was out of bed with physical therapy, was unable to get very far but more than a few steps in the room. Throughout the day, he continued to fail a voiding and had to be straight cath 2 more times. Fortunately, by postoperative day 2 he was voiding on his own. He continued to work with Physical therapy on postop day 2. Unfortunately he did not clear to go home, and has been scheduled to be transferred to [facility]. He is familiar with that facility from recovery from a previous orthopedic surgery that he had and had a positive experience. Condition on discharge: The patient is awake alert oriented, pleasant no acute distress his abdomen is moderately distended, he has no rebound tenderness or guarding. He has 2 incisions on his left lower quadrant both of which are covered by sterile dressings. There was a small amount of staining on them but no hematoma. Lower extremity examination reveals some limited movement with pain with hip flexion but otherwise strength is intact and sensation is normal. He has multiple incisions on his back that are covered with sterile dressings. There is some dried blood but no signs of hematoma. The patient will be discharged out to rehab today. He does not need a brace, he can be out of bed as tolerated. We recommend continuing his narcotic and pain medication regimen including oxycodone, Tylenol and gabapentin. He can be weaned off this at the discretion of the rehab staff. His dressings can be removed any time, he can shower whenever he would like. The patient should follow up with us in 3 weeks. There is a list of discharge instructions that will be included with this dictation. Status at Discharge Functional status at discharge: uses cane/walker Overall status at discharge: patient is progressing back to baseline Time Attestation Discharge coordination time: Less than 30 minutes Quality: Safe Use of Opioids Does Pt have an Active Cancer Diagnosis on the Problem List?: No Quality: Stroke Does the patient have a stroke diagnosis?: No Physical Exam Vital Signs: Vital Signs: Last Vital Signs Temp 97.4 F 06/02/23 07:21 Pulse 53 06/02/23 07:21 Resp 18 06/02/23 07:21 BP 114/55 L 06/02/23 07:21 Pulse Ox 97 06/02/23 08:00 O2 Del Method Room Air 06/02/23 08:00 O2 Flow Rate 2 05/31/23 16:59 BMI result Body Mass Index 24.3 DS: Data Data Completed and Pending Completed studies during hospitalization [Text1]: Procedures Excision of Cecum, Via Natural or Artificial Opening Endoscopic, Diagnostic (11/16/20) Excision of Ileum, Via Natural or Artificial Opening Endoscopic, Diagnostic (11/16/20) Discharge Plan Discharge Anticipated Discharge Date/Time: 06/02/23 15:14 Patient Disposition: Xfer Inpatient Rehab Fac Discharge Diagnosis: Scoliosis, status post L1-S1 fusion minimally invasive anterior/oblique and trans Kambin approach Referrals: Eamon Hahn MD [Primary Care Provider] - 1 Week Discharge Medications: New oxycodone 5 mg tablet See Rx Instructions .ROUTE .COMPLEX PRN (Reason: pain) Qty: 40 0RF Rx Instructions: 1-2 tablets PO every 4 hours as needed Partial Fill upon patient request. Prescription left in patient's chart in the hospital to be taken rehab with him docusate sodium [Colace] 100 mg capsule 100 mg PO BID Qty: 20 0RF acetaminophen [Tylenol] 325 mg capsule 650 mg PO Q4H Qty: 30 0RF gabapentin 300 mg capsule 300 mg PO TID Qty: 30 0RF Continued losartan 50 mg tablet 50 mg PO BID 90 Days Qty: 180 1RF Protocol: Hold for SBP< HOLD for SBP < : 90 atorvastatin 20 mg tablet 20 mg PO BEDTIME Qty: 30 3RF metoprolol tartrate 100 mg tablet 100 mg PO BID Qty: 180 3RF levothyroxine 75 mcg tablet 75 mcg PO DAILY@0630 omeprazole 20 mg capsule,delayed release(DR/EC) 20 mg PO DAILY@0630 multivitamin Tablet 1 tab PO DAILY ascorbic acid (vitamin C) 500 mg tablet 500 mg PO 2XW nifedipine 30 mg tablet extended release 30 mg PO BID Held Eliquis 2.5 mg tablet 2.5 mg PO BID 90 Days Qty: 180 3RF Hold Instructions: Resume on 06/03/23. Discharge Orders: Discharge Order (Routine); Ordered 06/02/23 Ordered By: Celio Smith Diet: Advance to usual diet Activity on Discharge: As tolerated Stand Alone Forms: Patient Portal Discharge page Activity Restrictions/Additional Instructions: After your spinal surgery we ask you to observe the following restrictions/guidelines: Activity: It is normal to feel some discomfort as you increase your activity, but that will improve with time. We ask you avoid heavy lifting or acitivities that cause pain. As a general rule, 8lbs is a safe limit for lifting right after surgery. Walk as much as you feel comfortable but not to exhaustion. You will feel extra tired the first few days after surgery. Stay well hydrated. It is OK to walk up and down stairs You may return to driving when you are off narcotics (such as vicodin, oxycodone, dilaudid, etc), and you are back to normal functional capacity. If you have any concerns please check with office before driving. Return to work is specific to each patient and each surgery, so please speak with your doctor/PA at first follow up. Please bring paperwork such as FMLA at that time if you need it filled out. Medications: For optimum pain control, it is best to start with a combination of 500 mg of Tylenol every 4 hours with 600 mg of Motrin every 8 hours, and use narcotics as needed in between for breakthrough pain. We will give you a short supply of narcotics after surgery (usually one weeks worth). If you need more please call the office but do not use more than prescribed. You will need to give our office 48 hours notice if you need narcotics refilled and we do not fill narcotics on weekends or evenings. If you are on a narcotic, it is a good idea to take a stool softener such as colace or senna to avoid constipation If you take blood thinner such as aspirin, Plavix, Coumadin, Effient, Eliquis etc for conditions such as Afib, DVT, Pulmonary embolus, coronary disease, stents etc please speak with your surgeon about specific details as to when you can resume these medications. You can resume NSAIDs on post op day 1 (eg: Motrin, Naproxen, etc). Follow up: Please call the office, , after surgery to arrange a 3 week follow up for wound check. Wound Care: You may remove your dressing on the first day after surgery. ?You may ?leave open to air. Please do not remove the steri strips underneath. they will fall off on their own in one week. IT IS NORMAL FOR THE WOUND TO OOZE OR BE BLOODY FOR A FEW DAYS AFTER SURGERY. ?IF THIS HAPPENS JUST PLACE NEW DRESSING OVER IT TO AVOID STAINING CLOTHES. You may shower on post op day # 1 We ask that you do not let the water soak the wound. If it does get wet, just towel dry lightly. Please do not scrub your incision or place any type of chemical/ointment on the wound. No tub baths, pools or jacuzzis for one month. If you have any leaking or redness from your wound, or fevers, please call office Care Plan Goals: Discharged to rehab Health Concerns: Patient is recovering from back surgery Plan of Treatment: Discharge to rehab Assessment: Patient clinically stable and should eventually be able to return to home
[2023-06-02 10:38] VITALS: O2SAT 97
--- NOTE | 2023-06-02 11:17 | MHC.CM.PN ---
DAISY Ta 06/03/23 for STR via BLS.
[2023-06-02 15:28] VITALS: BP 127/60; PULSE 57; RESP 20; TEMP 36.6; O2SAT 97
--- NOTE | 2023-06-02 17:53 | PC.NURSE ---
Approximately 1745, patient voided 100mL of clear yellow urine independently.
[2023-06-02] MEDS: oxyCODONE HCl Immed Release 5 MG TABLET PO (17:59)
[2023-06-02 19:05] VITALS: BP 146/63; PULSE 70; RESP 17; TEMP 37; O2SAT 95
[2023-06-02] MEDS: Atorvastatin Calcium 20 MG TABLET PO (20:13)
[2023-06-03 03:38] VITALS: BP 107/53; PULSE 54; RESP 17; TEMP 36.6; O2SAT 95
[2023-06-03] MEDS: Levothyroxine Sodium 75 MCG TABLET PO (05:46)
[2023-06-03] MEDS: Acetaminophen 325 MG TABLET 975 MG PO ×2 (05:46→11:29)
[2023-06-03] MEDS: Omeprazole 20 MG CAPSULE.DR PO (05:46)
[2023-06-03] MEDS: oxyCODONE HCl Immed Release 5 MG TABLET PO (05:50)
[2023-06-03 07:22] VITALS: BP 142/67; PULSE 61; RESP 17; TEMP 36.8; O2SAT 95
[2023-06-03 07:32] VITALS: O2SAT 96
[2023-06-03] MEDS: Losartan Potassium 50 MG TABLET PO (08:47)
[2023-06-03] MEDS: NIFEdipine ER 30 MG TAB.ER.24 PO (08:47)
[2023-06-03] MEDS: Metoprolol Tartrate 100 MG TABLET PO (08:47)
[2023-06-03] MEDS: Multivitamin TABLET 1 TAB PO (08:47)
[2023-06-03] MEDS: Docusate Sodium 100 MG CAPSULE PO (08:47)
[2023-06-03] MEDS: Gabapentin 300 MG CAPSULE PO (08:47)
--- NOTE | 2023-06-03 09:02 | HO.NEURO.PN ---
Neurosurgery Operative Note Date of Service: 06/03/23 Narrative: Postop day 3. L1- S1 minimally invasive fusion Patient reports back pain, appears to be manageable, denies any pain tingling or numbness radiating down the legs. He is passing gas and tolerating a diet fine. No bowel movement yet. He is voiding on his own adequately. He is ready for discharge to rehab this morning. Afebrile, vital signs stable Physical exam: Awake alert oriented no acute distress, he has full strength of bilateral lower extremities with the exception of some mild proximal weakness which is related to pain and discomfort with movement. Abdomen is still mild to moderately distended, no rebound tenderness or guarding, left lower quadrant incision clean and dry, dressing in place, back dressing similarly. Impression: Postop day 3. L1-S1 minimally invasive fusion, patient doing well at this point, needs to be more functionally mobile before he can go home he will go to rehab today. Plan for discharge this morning. Patient seen at bedside with Dr. Trevino.
--- NOTE | 2023-06-03 09:09 | P.DS_ITS ---
DS: Providers Provider Date of Service: 06/03/23 Date of admission: 05/31/23 06:15 Primary care physician: Eamon Hahn MD DS: Diagnosis Discharge Diagnosis (1) Scoliosis of lumbar region due to degenerative disease of spine in adult: Status: Acute DS: Summary Hospital Course Hospital Course: This is a very nice 83-year-old gentleman with a history of back pain and scoliosis admitted for elective L1-S1 minimally invasive anterior/oblique and trans Kambin approaches for correction of scoliosis. He underwent his procedure without complication, was brought to the PACU where he recovered from anesthesia and subsequently brought to the [address] [place] [address] to begin his recovery. Because of his history of sensitivity to narcotics and his history of chronic kidney disease, we kept him on a regimen of oxycodone, Tylenol and gabapentin. The patient had no abdominal pain, norany nausea and vomiting, so was able to advance his diet without any issues. His 1st postoperative night was unremarkable with the exception that he was unable to void and had to be st raight cathed. He was out of bed with physical therapy, was unable to get very far but more than a few steps in the room. Throughout the day, he continued to fail a voiding and had to be straight cath 2 more times. Fortunately, by postoperative day 2 he was voiding on his own. He continued to work with Physical therapy on postop day 2. Unfortunately he did not clear to go home, and has been scheduled to be transferred to [facility]. He is familiar with that facility from recovery from a previous orthopedic surgery that he had and had a positive experience. Condition on discharge: The patient is awake alert oriented, pleasant no acute distress his abdomen is moderately distended, he has no rebound tenderness or guarding. He has 2 incisions on his left lower quadrant both of which are covered by sterile dressings. There was a small amount of staining on them but no hematoma. Lower extremity examination reveals some limited movement with pain with hip flexion but otherwise strength is intact and sensation is normal. He has multiple incisions on his back that are covered with sterile dressings. There is some dried blood but no signs of hematoma. The patient will be discharged out to rehab today. He does not need a brace, he can be out of bed as tolerated. We recommend continuing his narcotic and pain medication regimen including oxycodone, Tylenol and gabapentin. He can be weaned off this at the discretion of the rehab staff. His dressings can be removed any time, he can shower whenever he would like. The patient should follow up with us in 3 weeks. There is a list of discharge instructions that will be included with this dictation. Time Attestation Discharge coordination time: Less than 30 minutes Quality: Safe Use of Opioids Does Pt have an Active Cancer Diagnosis on the Problem List?: No Quality: Stroke Does the patient have a stroke diagnosis?: No Physical Exam Vital Signs: Vital Signs: Last Vital Signs Temp 98.2 F 06/03/23 07:22 Pulse 61 06/03/23 07:22 Resp 17 06/03/23 07:22 BP 142/67 H 06/03/23 07:22 Pulse Ox 96 06/03/23 07:32 O2 Del Method Room Air 06/03/23 07:32 O2 Flow Rate 2 05/31/23 16:59 BMI result Body Mass Index 24.3 DS: Data Data Completed and Pending Completed studies during hospitalization [Text1]: Procedures Excision of Cecum, Via Natural or Artificial Opening Endoscopic, Diagnostic (11/16/20) Excision of Ileum, Via Natural or Artificial Opening Endoscopic, Diagnostic (11/16/20) Discharge Plan Discharge Anticipated Discharge Date/Time: 06/03/23 09:09 Patient Disposition: Xfer Inpatient Rehab Fac Discharge Diagnosis: Scoliosis, status post L1-S1 fusion minimally invasive anterior/oblique and trans Kambin approach Referrals: Tanya Ta [Outside] - 1 Week Eamon Hahn MD [Primary Care Provider] - 1 Week Discharge Medications: New oxycodone 5 mg tablet See Rx Instructions .ROUTE .COMPLEX PRN (Reason: pain) Qty: 40 0RF Rx Instructions: 1-2 tablets PO every 4 hours as needed Partial Fill upon patient request. Prescription left in patient's chart in the hospital to be taken rehab with him docusate sodium [Colace] 100 mg capsule 100 mg PO BID Qty: 20 0RF acetaminophen [Tylenol] 325 mg capsule 650 mg PO Q4H Qty: 30 0RF gabapentin 300 mg capsule 300 mg PO TID Qty: 30 0RF Continued losartan 50 mg tablet 50 mg PO BID 90 Days Qty: 180 1RF Protocol: Hold for SBP< HOLD for SBP < : 90 atorvastatin 20 mg tablet 20 mg PO BEDTIME Qty: 30 3RF metoprolol tartrate 100 mg tablet 100 mg PO BID Qty: 180 3RF levothyroxine 75 mcg tablet 75 mcg PO DAILY@0630 omeprazole 20 mg capsule,delayed release(DR/EC) 20 mg PO DAILY@0630 multivitamin Tablet 1 tab PO DAILY ascorbic acid (vitamin C) 500 mg tablet 500 mg PO 2XW nifedipine 30 mg tablet extended release 30 mg PO BID Held Eliquis 2.5 mg tablet 2.5 mg PO BID 90 Days Qty: 180 3RF Hold Instructions: Resume on 06/03/23. Discharge Orders: Discharge Order (Routine); Ordered 06/02/23 Ordered By: Celio Smith Diet: Advance to usual diet Activity on Discharge: As tolerated Stand Alone Forms: Patient Portal Discharge page Activity Restrictions/Additional Instructions: After your spinal surgery we ask you to observe the following restrictions/guidelines: Activity: It is normal to feel some discomfort as you increase your activity, but that will improve with time. We ask you avoid heavy lifting or acitivities that cause pain. As a general rule, 8lbs is a safe limit for lifting right after surgery. Walk as much as you feel comfortable but not to exhaustion. You will feel extra tired the first few days after surgery. Stay well hydrated. It is OK to walk up and down stairs You may return to driving when you are off narcotics (such as vicodin, oxycodone, dilaudid, etc), and you are back to normal functional capacity. If you have any concerns please check with office before driving. Return to work is specific to each patient and each surgery, so please speak with your doctor/PA at first follow up. Please bring paperwork such as FMLA at that time if you need it filled out. Medications: For optimum pain control, it is best to start with a combination of 500 mg of Tylenol every 4 hours with 600 mg of Motrin every 8 hours, and use narcotics as needed in between for breakthrough pain. We will give you a short supply of narcotics after surgery (usually one weeks worth). If you need more please call the office but do not use more than prescribed. You will need to give our office 48 hours notice if you need narcotics refilled and we do not fill narcotics on weekends or evenings. If you are on a narcotic, it is a good idea to take a stool softener such as c olace or senna to avoid constipation If you take blood thinner such as aspirin, Plavix, Coumadin, Effient, Eliquis etc for conditions such as Afib, DVT, Pulmonary embolus, coronary disease, stents etc please speak with your surgeon about specific details as to when you can resume these medications. You can resume NSAIDs on post op day 1 (eg: Motrin, Naproxen, etc). Follow up: Please call the office, , after surgery to arrange a 3 week follow up for wound check. Wound Care: You may remove your dressing on the first day after surgery. ?You may ?leave open to air. Please do not remove the steri strips underneath. they will fall off on their own in one week. IT IS NORMAL FOR THE WOUND TO OOZE OR BE BLOODY FOR A FEW DAYS AFTER SURGERY. ?IF THIS HAPPENS JUST PLACE NEW DRESSING OVER IT TO AVOID STAINING CLOTHES. You may shower on post op day # 1 We ask that you do not let the water soak the wound. If it does get wet, just towel dry lightly. Please do not scrub your incision or place any type of chemical/ointment on the wound. No tub baths, pools or jacuzzis for one month. If you have any leaking or redness from your wound, or fevers, please call office Care Plan Goals: Discharged to rehab Health Concerns: Patient is recovering from back surgery Plan of Treatment: Discharge to rehab Assessment: Patient clinically stable and should eventually be able to return to home
--- NOTE | 2023-06-03 09:48 | MHC.CM.PN ---
IMM 06/02/23 Patient is discharged to [facility] today. 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
== END 2023-06-03 14:05 | DRG 458 ==
LOC: HO.SSSA 06:20 → HO.S3 15:38
PROVIDERS: Nurse Practitioner; Physician Assistant; Admitting Provider Neurological Surgery; PCP Internal Medicine; Visit Provider Neurological Surgery
PROC: 0SG10A0 Fusion of 2 or more Lumbar Vertebral Joints with Interbody Fusion Device, Anterior Approach, Anterior Column, Open Approach (ICD-10-PCS; principal; 2023-05-31 07:30)
PROC: 0SG10A0 Fusion of 2 or more Lumbar Vertebral Joints with Interbody Fusion Device, Anterior Approach, Anterior Column, Open Approach (ICD-10-PCS; 2023-05-31 07:30)
DX: M51.36 Other intervertebral disc degeneration, lumbar region (principal); M41.56 Other secondary scoliosis, lumbar region; M48.061 Spinal stenosis, lumbar region without neurogenic claudication; Z79.01 Long term (current) use of anticoagulants; Z79.890 Hormone replacement therapy; Z79.899 Other long term (current) drug therapy
CPT/HCPCS: 36415; 80048; 82565; 84520; 86850; 86900; 86901; 97116; 97162; 99024; C1713; C1763; J0131; J0690; J1100; J1170; J2405; J2704; J3010; L8699

== ENCOUNTER → 2023-05-31 06:15 | Outpatient (BNV) | payer MEDICARE, OTHER, SELFPAY | PROVIDERS: Admitting Provider Neurological Surgery; PCP Internal Medicine; Visit Provider Surgery | DX: M41.56 Other secondary scoliosis, lumbar region (principal) | CPT/HCPCS: 20930; 22558; 22585; 22612; 22614; 22842; 22853; 63056; 63057; 99499 ==

== ENCOUNTER 2023-06-25 14:07 | Outpatient (AMB) | payer MEDICARE, OTHER, SELFPAY ==
--- NOTE | 2023-06-25 14:30 | A.SPINEOV_ITS ---
Intake Intake Visit Reasons: 1st post op Intake Note: Mr. Abdul is here today for his 1st post-op visit. Special Needs Caregiver Required: No Allergies No Known Allergies Allergy (Mild, Verified 05/28/23 11:35) NONE Assessment & Plan Assessment & Plan (1) S/P lumbar fusion: Code(s): Z98.1 - Arthrodesis status Plan Procedure: L1-S1 lumbar fusion Josh comes in today for his 1st postoperative visit. He reports he is doing very well and is very satisfied with the surgery. He is up out of bed, am bulating around and completing 2 miles per day on a stationary bicycle. He states he still has some pain in his low back but feels as though it is minimal compared to the pain he was in prior to surgery. He did have a difficult 1st week postoperatively and reported quite a bit of pain, but this has subsided. Additionally, he reports he has had some swelling in his bilateral ankles. I examined his ankles which do show 1+ pitting edema, however he does have a history of stage III CKD. I recommended he follow-up with his primary care physician for evaluation and suggested compression stockings for the time being. Lastly, he had a lidocaine patch directly over the incision sites which I removed. I asked him to inform the nursing staff that he can use lidocaine p atches but should not have them directly over healing incisions. No new neurological deficits. Sensation grossly intact. Patient is able to ambulate well, rises from a seated position with the need of assistance but is pain free when doing so. Incision sites are closed, well healing, with no signs of drainage. We will follow-up with the patient in 6 weeks for his 2nd postoperative visit. At that time we will get x-rays to review with the patient. Monty Trevino MD,PhD [facility] Coding Level of Care Code Global (91209) Diagnoses S/P lumbar fusion Z98.1
== END 2023-06-25 14:52 | disposition home or self-care (01) ==
PROVIDERS: PCP Internal Medicine; Visit Provider Physician Assistant
DX: Z98.1 Arthrodesis status (principal)
CPT/HCPCS: 99024

== ENCOUNTER → 2023-06-25 14:07 | Outpatient (BNVA) | payer MEDICARE, OTHER, SELFPAY | PROVIDERS: PCP Internal Medicine; Visit Provider Physician Assistant | DX: Z98.1 Arthrodesis status (principal) | CPT/HCPCS: 99212 ==

== ENCOUNTER 2023-07-21 12:44 | Outpatient (REF) | payer MEDICARE, OTHER, SELFPAY ==
--- NOTE | ~2023-07-21 | XR_ITS ---
EXAMINATION: XR LUMBOSACRAL SPINE WITH OBLIQUES CLINICAL INFORMATION: Arthrodesis status. COMPARISON: 05/31/2023 fluoroscopy in OR images, 03/12/2023 radiographs, 01/26/2022 MR lumbar spine. TECHNIQUE: AP, lateral neutral, flexion and extension views of the lumbar spine. FINDINGS: Posterior pedicular screws and interbody device placement redemonstrated from L1 through S1 with only a single pedicular screw at L1 on the left. Hardware appears intact. Grade 1 retrolisthesis of L2 on L3 with extension and flexion. Minimal grade 1 retrolisthesis of L3 on L4. Minimal grade 1 retrolisthesis of L4 on L5. Atherosclerotic aortic calcifications. XR/XR lumbar spine 4V min IMPRESSION: 1. Posterior pedicular screws and interbody device placement redemonstrated from L1 through S1 with only a single pedicular screw at L1 on the left. Hardware appears intact. 2. Grade 1 retrolisthesis of L2 on L3 with extension and flexion. Minimal grade 1 retrolisthesis of L3 on L4. Minimal grade 1 retrolisthesis of L4 on L
== END 2023-07-21 12:45 | disposition home or self-care (01) ==
LOC: HO.HOSX 12:44
PROVIDERS: Visit Provider Physician Assistant
DX: Z47.89 Encounter for other orthopedic aftercare (principal); Z98.1 Arthrodesis status
CPT/HCPCS: 72110; 99212

== ENCOUNTER 2023-07-21 12:53 | Outpatient (AMB) | payer MEDICARE, OTHER, SELFPAY ==
--- NOTE | 2023-07-21 13:10 | A.SPINEOV_ITS ---
Intake Intake Visit Reasons: 2nd post op Intake Note: Mr. Abdul is here today for 2nd post op. Consulting Practice Director Required: No Allergies No Known Allergies Allergy (Mild, Verified 05/28/23 11:35) NONE Assessment & Plan Assessment & Plan (1) S/P lumbar fusion: Code(s): Z98.1 - Arthrodesis status Plan Procedure: L1-S1 lumbar fusion Josh is a pleasant 83-year-old male who comes in today for his 2nd postoperative visit after having a L1-S1 fusion completed. He has finished his stay in rehab and is now back at home. He states his pain is much less than what he previously had, and is currently rating it as a 2/10. He states that he still ambulates with the assistance of a walker as it helps him feel more secure, but it hopeful that he will not need it for much longer. He did report that he has some difficulty with falling asleep at night as when he lays down he gets some muscle spasms in his posterior buttocks. He is tried several [id number] remedies with only minimal relief. I reviewed his x-rays with Dr. Trevino, which appeared to be stable and show no changes from fluoroscopy. No new neurological deficits. Sensation grossly intact. Patient is able to ambulate well with walker, rises from a seated position with the need of assistance but is pain free when doing so. Incision sites are closed, well healing, with no signs of drainage. We will follow-up with the patient in 6 weeks for his 2nd postoperative visit. At that time we will get x-rays to review with the patient. Monty Trevino MD,PhD [facility] Orders: Orders XR lumbar spine 4V min Today Z98.1 - Arthrodesis status Medications: New methocarbamol 750 mg PO BEDTIME 30 tabs 0RF muscle spasms Coding Level of Care Code Global (94069) Diagnoses S/P lumbar fusion Z98.1
== END 2023-07-21 13:28 | disposition home or self-care (01) ==
PROVIDERS: PCP Internal Medicine; Visit Provider Physician Assistant
DX: Z98.1 Arthrodesis status (principal)
CPT/HCPCS: 99024

== ENCOUNTER 2023-08-27 09:45 | Outpatient (AMB) | payer MEDICARE, OTHER, SELFPAY ==
[2023-08-27 09:51] VITALS: BP 130/60; PULSE 49; O2SAT 100; BMI 22.8
--- NOTE | 2023-08-27 09:51 | HO.NEPHOV_ITS ---
Vital Signs 08/27/23 09:51 Height 5 ft 8 in Weight 150 lb BMI 22.8 BP 130/60 Blood Pressure Location Lt brachial Position Sitting Pulse 49 L Pulse Source Pulse Oximeter Pulse Oximetry (%) 100 Oxygen Delivery Method Room Air Intake Visit Reasons: CKD/ 3 mo fu/ Confirmed Sanitary Landfill Supervisor Required: No Accompanied by: Grand Child Allergies No Known Allergies Allergy (Mild, Verified 08/27/23 09:54) NONE HPI Comments Details: I had the privilege of seeing Josh in the office in follow-up of his chronic kidney disease and hypertension. He had undergone surgical intervention for his back and is recuperating. His serum creatinine is stable. He was accompanied by his grand daughter during this visit. He is closely followed by his oncologist for follow up of his lymphoma and is due to have a follow up PET scan in a few months. He does not have any chest pain, shortness of breath, nausea, vomiting, diarrhea, hematuria or pedal edema. He does not take any excessive nonsteroidal anti-inflammatory medications. He has no dizziness. He takes losartan and nifedipine which he had been tolerating well. His repeat potassium has been normal. His [id number]-[id number] checks his blood pressure at home and has been fairly well controlled [facility] Medical History (Updated 08/27/23 @ 10:20 by Checo Greenberg MD) CKD (chronic kidney disease) stage 3, GFR 30-59 ml/min Marginal zone B-cell lymphoma Hx of small bowel obstruction Lumbar spondylitis Degenerative lumbar spinal stenosis Atrial fibrillation Leg edema Apical mural thrombus Arthritis Hiatal hernia Hypothyroidism HTN (hypertension) Rosacea Basal cell carcinoma Lymphadenopathy Surgical History Hx of biopsy Hx of colonoscopy Hx of tonsillectomy Hx of total knee replacement Family History Father Heart disease Social History Household Members: Spouse Housing: House Are you a primary child care teacher to a significant other at home: Yes () Do you presently have visiting nurse or other home services: Yes (outcomes analyst for ) Alcohol intake: current Alcohol intake frequency: holidays/special occasions only Alcohol type: beer Patient Tobacco Use Status: Former Tobacco user Quit Date: 1970 Tobacco use type: Cigarette Cigarette Packs Per Day: 1 Advance Directives Date on File: 05/27/21 service: Yes Current occupational status: retired 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 Current occupational exposures/hazards: No Physical Exam Vital Signs: Last Vital Signs Pulse 49 L 08/27/23 09:51 BP 130/60 08/27/23 09:51 Pulse Ox 100 08/27/23 09:51 Oxygen Delivery Method Room Air 08/27/23 09:51 BMI result Body Mass Index 22.8 Const General: comfortable and no acute distress Orientation/consciousness: patient oriented x3 HEENT Head: Yes normocephalic Mouth: Normal oral and palatal mucosa present Eyes EOM: EOMs intact bilaterally Neck Neck: Yes supple Resp Auscultation: clear to auscultation bilaterally Cardio Jugular venous distension: no JVD Rate: regular rate GI Palpation (GI): Soft to palpation Auscultation: normal bowel sounds General: Yes no CVA tenderness Back/Spine/Pelvis Back: no CVA tenderness Skin General skin exam: no rashes or lesions noted Neuro General: patient oriented x3 and moves all extremities Extrem General: Yes no pedal edema Results Reviewed Nephrology Results: Hgb 10.0 g/dl (14.0-18.0) L 08/13/23 WBC 3.9 X10*3/uL (4.8-10.8) L 08/13/23 Plt Count 279 X10*3/uL (160-400) 08/13/23 Sodium 139 mmol/L (135-145) 08/13/23 Potassium 4.7 mmol/L (3.3-5.1) 08/13/23 Chloride 109 mmol/L (96-108) H 08/13/23 Carbon Dioxide 22 mmol/L (22-29) 08/13/23 BUN 40 mg/dL (9-16) H 08/13/23 Creatinine 1.98 mg/dL (0.5-1.4) H 08/13/23 Calcium 8.9 mg/dL (8.4-10.2) 08/13/23 Urine Protein 300 (3+) mg/dL (Neg-Trace) H 05/27/23 Assessment & Plan Assessment & Plan (1) HTN (hypertension): Code(s): I10 - Essential (primary) hypertension Category: Medical Qualifiers: Hypertension type: primary hypertension Qualified Code(s): I10 - Essential (primary) hypertension (2) CKD (chronic kidney disease) stage 4, GFR 15-29 ml/min: Code(s): N18.4 - Chronic kidney disease, stage 4 (severe) Category: Medical Plan Josh has longstanding CKD and hypertension. His serum K has normalized. His blood pressure is well controlled on current medications. He does not take any excessive nonsteroidal anti-inflammatories. I asked him to cut down the dose of vitamin-C. I shall consider giviing him IV iron through [facility] if he continues to have iron deficiency and anemia. I did not make any other medication changes today. All his questions were answered. Follow-up blood work was ordered. Orders: Orders Complete Blood Count Auto Diff Today E61.1 - Iron deficiency, I10 - Essential (primary) hypertension, N18.4 - Chronic kidney disease, stage 4 (severe) IRON PROFILE Today E61.1 - Iron deficiency, I10 - Essential (primary) hypertension, N18.4 - Chronic kidney disease, stage 4 (severe) Creatinine Today E61.1 - Iron deficiency, I10 - Essential (primary) hypertension, N18.4 - Chronic kidney disease, stage 4 (severe) Blood Urea Nitrogen Today E61.1 - Iron deficiency, I10 - Essential (primary) hypertension, N18.4 - Chronic kidney disease, stage 4 (severe) Electrolytes Today E61.1 - Iron deficiency, I10 - Essential (primary) hypertension, N18.4 - Chronic kidney disease, stage 4 (severe) Calcium Today E61.1 - Iron deficiency, I10 - Essential (primary) hypertension, N18.4 - Chronic kidney disease, stage 4 (severe) Ferritin Today E61.1 - Iron deficiency, I10 - Essential (primary) hypertension, N18.4 - Chronic kidney disease, stage 4 (severe)
== END 2023-08-27 10:24 | disposition home or self-care (01) ==
PROVIDERS: PCP Internal Medicine; Visit Provider Internal Medicine Nephrology
DX: I12.9 Hypertensive chronic kidney disease with stage 1 through stage 4 chronic kidney disease, or unspecified chronic kidney disease (principal); N18.4 Chronic kidney disease, stage 4 (severe)
CPT/HCPCS: 99214

== ENCOUNTER → 2023-08-27 09:45 | Outpatient (BNVA) | payer MEDICARE, OTHER, SELFPAY | PROVIDERS: PCP Internal Medicine; Visit Provider Internal Medicine Nephrology | DX: I12.9 Hypertensive chronic kidney disease with stage 1 through stage 4 chronic kidney disease, or unspecified chronic kidney disease (principal); N18.4 Chronic kidney disease, stage 4 (severe); E61.1 Iron deficiency | CPT/HCPCS: 99212 ==

== ENCOUNTER 2023-10-29 15:20 | Outpatient (REF) | payer MEDICARE, OTHER, SELFPAY | END 2023-10-29 15:21 | disposition home or self-care (01) | LOC: HO.HOSX 15:20 | PROVIDERS: Visit Provider Physician Assistant | DX: Z13.89 Encounter for screening for other disorder (principal) ==

== ENCOUNTER → 2023-11-10 09:40 | Outpatient (REF) | payer MEDICARE, OTHER, SELFPAY ==
--- NOTE | 2023-11-10 09:43 | CA_ITS ---
Transthoracic Echocardiogram Patient (Last, First, Middle): Josh Abdul W Gender: Male Date of : 1940 Age: 83 Procedure Date: 11/10/2023 Procedure Type: Transthoracic Echocardiogram Location: OP Height: 167.64 cm Weight: 68.95 kg BSA: 1.78 m2 Heart Rate: bpm BP: 138 / 60 mmHg Rn Team Leader: TO Referring MD: Darwin Valadez MD Symptoms: I25.10 - Atherosclerotic heart disease of [place] coronary artery without... Study Quality: Adequate ECG Rhythm: Sinus Conclusions: - The left ventricular systolic function is normal. The calculated ejection fraction is 61% by biplane method. - There is evidence of regional wall motion abnormalities. - The left atrium is severely dilated. - There is mild mitral valve regurgitation. - There is mild dilatation of the ascending aorta measuring 4.20 cm. Findings Left Ventricle Normal left ventricular cavity size. There is mildly increased left ventricular wall thickness. The left ventricular systolic function is normal. The calculated ejection fraction is 61% by biplane method. There is evidence of regional wall motion abnormalities. Evidence suggests grade II (moderate) diastolic dysfunction. Wall Motion Rest Echo Findings The basal inferolateral segment is hypokinetic. The basal inferior segment is akinetic. Right Ventricle Normal right ventricular cavity size and systolic function. Atria The left atrium is severely dilated. The right atrium is normal in size. Aortic Valve There is a normal trileaflet aortic valve. There is mild calcification of the aortic valve. There is no aortic valve stenosis. There is no aortic valve regurgitation. Mitral Valve There is mild mitral annular calcification. There is mild mitral valve regurgitation. There is no mitral valve stenosis. Pulmonic Valve There is trace pulmonic valve regurgitation. Tricuspid Valve There is trace tricuspid valve regurgitation. There is no evidence of pulmonary hypertension. Great Vessels There is mild dilatation of the ascending aorta measuring 4.20 cm. Small plaque is seen in the sino tubular ridge. Venous The inferior vena cava is normal in size and collapses greater than 50% with inspiration. Pericardium/Pleural There is no evidence of pericardial effusion. Prior Study Comparison No significant change compared to prior study dated: 09/15/2022. Measurements 2D Linear Measurements IVSd: 1.20 0.6-0.9/0.6-1.0 cm LVIDd: 4.93 3.9-5.3/4.2-5.9 cm LVIDd Index: 2.77 2.4-3.2/2.2-3.1 cm/m2 LVIDs: 3.05 2.0-3.6 cm LVPWd: 1.04 0.7-1.1 cm LA Diam: 3.50 2.7-3.8/3.0-4.0 cm LAIDs Index: 1.97 1.5-2.3 cm/m2 LV Mass: 258.73 67-162/88-224 g LV Mass Index: 145.35 43-95/49-115 g/m2 LVOT Diam: 2.30 3.0+(-)1.3 cm 2D Systolic Function EF 4C: 56.50 >55% EF 2C: 61.50 >55% EF BiP: 61.00 >55% Mitral Valve MV VTI: 0.48 MV Pk Jagdish: 1.08 MV Mn Jagdish: 0.54 MV Pk Grad: 5.00 MV Mn Grad: 1.00 MV Pk E: 0.83 MV PK A: 0.78 MV Decel Time: 287.00 E/A: 1.10 E'Lateral: 6.20 E'Medial: 4.57 E/E' Med: 18.10 E/E' Lat: 13.30 PHT: 84.00 MVA PHT: 2.62 MVA Continuity: 2.10 Decel [facility]: 2.88 Aortic Valve AoV Pk Jagdish: 1.03 AoV Mn Jagdish: 0.72 AoV VTI: 0.28 AoV Pk Grad: 4.00 Aov Mn Grad: 2.00 CRISTOFER Cont.VTI: 3.65 LVOT LVOT Pk Jagdish: 0.89 LVOT Mn Jagdish: 0.59 LVOT VTI: 0.24 LVOT Pk Grad: 3.00 LVOT Mn Grad: 2.00 LVOT Diam: 2.30 LVOT Area: 4.15 Diastolic Function MV Pk E: 0.83 MV Pk A: 0.78 E/A: 1.10 E'Medial: 4.57 E/E' Med: 18.10 E' Laterial: 6.20 E/E' Lat: 13.30 Right Ventricle TAPSE (mm): 25.20 TVS' Jagdish: 12.70 Tricuspid Valve RA Press: 3.00 Great Vessels Aorta Sinus of Valsalva: 4.37 2.0-3.5 cm Ao Asc: 4.20 2.1-3.4 cm Updated in Other Vendor System with Status of Final Darwin Valadez MD electronically signed on 11/12/2023 1:01:54 PM with status of Final
== END ==
LOC: HO.CARD 09:40
PROVIDERS: PCP Internal Medicine; Visit Provider Internal Medicine
DX: I25.10 Atherosclerotic heart disease of native coronary artery without angina pectoris (principal); I42.9 Cardiomyopathy, unspecified; I77.89 Other specified disorders of arteries and arterioles
CPT/HCPCS: 93306

== ENCOUNTER → 2023-11-10 09:43 | Outpatient (BNV) | payer MEDICARE, OTHER, SELFPAY | PROVIDERS: PCP Internal Medicine; Visit Provider Internal Medicine | DX: I34.0 Nonrheumatic mitral (valve) insufficiency (principal); I35.8 Other nonrheumatic aortic valve disorders | CPT/HCPCS: 93306 ==

== ENCOUNTER 2023-11-15 09:53 | Outpatient (AMB) | payer MEDICARE, OTHER, SELFPAY ==
[2023-11-15 09:56] VITALS: BP 120/56; PULSE 55; BMI 22.7
--- NOTE | 2023-11-15 09:56 | A.OFFVIS_ITS ---
Vital Signs 11/15/23 09:56 Height 5 ft 8 in Weight 149 lb 0.52 oz BMI 22.7 BP 120/56 L Blood Pressure Location Lt brachial Position Sitting Pulse 55 Pulse Source Pulse Oximeter Intake Visit Reasons: 6 mth f/up Floor Supervisor Required: No Accompanied by: Self / Same As Patient Allergies No Known Allergies Allergy (Mild, Verified 08/27/23 09:54) NONE Medication List - Last Reconciled 11/15/23 by Darwin Valadez MD acetaminophen (Tylenol) 650 mg (2 x 325 mg) PO Q4H apixaban (Eliquis) 2.5 mg PO BID ascorbic acid (vitamin C) 500 mg PO 2XW atorvastatin 20 mg PO BEDTIME levothyroxine 75 mcg PO DAILY@0630 losartan 50 mg See Protocol PO BID 90 days methocarbamol 750 mg PO BEDTIME PRN metoprolol tartrate 100 mg PO BID multivitamin 1 tab PO DAILY nifedipine ER 30 mg PO BID omeprazole 20 mg PO DAILY@0630 HPI Comments Details: Josh returns for follow-up regarding various issues including stress-induced cardiomyopathy, LV thrombus, atrial fibrillation among others. In 2020, he was admitted to the hospital for small bowel obstruction. In that setting, developed what was thought to be stress-induced cardiomyopathy, left ventricular apical thrombus as well as atrial fibrillation. He was appropriately treated for these and discharged home. Prior to this, no significant cardiac issues at all. He had a history of hypertension on appropriate medications prior to hospitalization. He also carries a diagnosis of lymphoma but stable. Overall, he is doing good. No cardiac symptoms whatsoever. [facility] Medical History (Updated 08/27/23 @ 10:20 by Checo Greenberg MD) CKD (chronic kidney disease) stage 3, GFR 30-59 ml/min Marginal zone B-cell lymphoma Hx of small bowel obstruction Lumbar spondylitis Degenerative lumbar spinal stenosis Atrial fibrillation Leg edema Apical mural thrombus Arthritis Hiatal hernia Hypothyroidism HTN (hypertension) Rosacea Basal cell carcinoma Lymphadenopathy Surgical History Hx of biopsy Hx of colonoscopy Hx of tonsillectomy Hx of total knee replacement Family History Father Heart disease Social History Household Members: Spouse Housing: House Are you a primary pharmacy care coordinator to a significant other at home: Yes () Do you presently have visiting nurse or other home services: Yes (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 ) Alcohol intake: current Alcohol intake frequency: holidays/special occasions only Alcohol type: beer Patient Tobacco Use Status: Former Tobacco user Tobacco use type: Cigarette Cigarette Packs Per Day: 1 Advance Directives Date on File: 05/27/21 service: Yes Current occupational status: 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 Current occupational exposures/hazards: No Review of Systems Const All systems reviewed & are unremarkable except as noted in HPI and below Denies chills, Denies fatigue, Denies fever(s), Denies weight gain and Denies weight loss Eyes Reports as per HPI and Denies no additional complaints ENT Denies no additional complaints and Reports as per HPI Card Denies chest pain, Denies leg edema, Denies lightheadedness, Denies palpitations, Denies dyspnea on exertion and Denies orthopnea Resp Denies cough and Denies dyspnea on exertion GI Reports melena, Denies hematochezia and Denies change in stool character Reports no additional complaints and Reports as per HPI Musc Denies muscle weakness and Denies radiating pain into limb Skin/Breast Reports system reviewed and no additional complaints, except as documented Neuro Reports no additional complaints and Reports as per HPI Psych Reports no additional complaints and Reports as per HPI Endo Denies fatigue and Denies palpitations Michel/Lymph Reports no additional complaints and Reports as per HPI Aller/Immun Reports no additional complaints and Reports as per HPI Physical Exam Vital Signs: Last Vital Signs Pulse 55 11/15/23 09:56 BP 120/56 L 11/15/23 09:56 BMI result Body Mass Index 22.7 Const General: comfortable and no acute distress Orientation/consciousness: patient oriented x3 HEENT Other: Unremarkable Head: Yes normal to inspection Neck Neck: Yes normal visual inspection Chest Chest palpation & inspection: normal inspection of the chest Resp Auscultation: clear to auscultation bilaterally Cardio Palpation: normal PMI Heart sounds: S1 normal heart sound present, S2 normal heart sound present, no gallops, no murmurs and no rubs GI Palpation (GI): Soft to palpation Back/Spine/Pelvis Other: unremarkable Skin General skin exam: no rashes or lesions noted Neuro General: patient oriented x3 Extrem General: Yes normal to inspection Psych Mental Status: mental status grossly normal Assessment & Plan Assessment & Plan (1) Cardiomyopathy: Code(s): I42.9 - Cardiomyopathy, unspecified Category: Medical Plan: In the most recent echocardiogram, LVEF 61%. In the past, as low as 25-30%. 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 Perfusion imaging is not showing any clear-cut ischemic findings. Clinically, he has got no shortness of breath or chest pain or any cardiac symptoms. Hence no specific management for now. (2) Paroxysmal atrial fibrillation: Code(s): I48.0 - Paroxysmal atrial fibrillation Category: Medical Plan: EKG during time of hospitalization with atrial fibrillation. Continue Eliquis. He is on appropriate dose for his age and kidney function. (3) Apical mural thrombus: Code(s): I51.3 - Intracardiac thrombosis, not elsewhere classified Category: Medical Plan: Apical thrombus seen on the echocardiogram from hospitalization. On anticoagulation. No recent issues. (4) Essential hypertension: Code(s): I10 - Essential (primary) hypertension Category: Medical Plan: Stable. No changes. (5) Atherosclerotic cardiovascular disease: Code(s): I25.10 - Atherosclerotic heart disease of [place] coronary artery without angina pectoris Category: Medical Plan: Myocardial perfusion imaging study from 2020 shows no evidence of any ischemia or infarction. At his age, still suspect underlying coronary disease. Clinically, no symptoms. Remains on statins. Coding Level of Care Code Est Pt Level 4 (60496) Diagnoses Cardiomyopathy I42.9 Paroxysmal atrial fibrillation I48.0 Apical mural thrombus I51.3 Essential hypertension I10 Atherosclerotic cardiovascular disease I25.10
== END 2023-11-15 10:13 | disposition home or self-care (01) ==
PROVIDERS: PCP Internal Medicine; Visit Provider Internal Medicine
DX: I42.9 Cardiomyopathy, unspecified (principal); I48.0 Paroxysmal atrial fibrillation; I51.3 Intracardiac thrombosis, not elsewhere classified; I10 Essential (primary) hypertension; I25.10 Atherosclerotic heart disease of native coronary artery without angina pectoris
CPT/HCPCS: 99214

== ENCOUNTER → 2023-11-15 09:53 | Outpatient (BNVA) | payer MEDICARE, OTHER, SELFPAY | PROVIDERS: PCP Internal Medicine; Visit Provider Internal Medicine | DX: I42.9 Cardiomyopathy, unspecified (principal); I48.0 Paroxysmal atrial fibrillation; I51.3 Intracardiac thrombosis, not elsewhere classified; I10 Essential (primary) hypertension; I25.10 Atherosclerotic heart disease of native coronary artery without angina pectoris; Z79.01 Long term (current) use of anticoagulants | CPT/HCPCS: 99212 ==

== ENCOUNTER 2023-11-19 10:41 | Outpatient (REF) | payer MEDICARE, OTHER, SELFPAY ==
[2023-11-19 13:30] LABS: MANUAL DIFF FLAG NO
[2023-11-19 13:37] LABS: Basophils Absolute Auto 0.1 X10*3/uL (0.0-0.2); Basophils Percent Auto 1.2 % (0-2); Eosinophils Absolute Auto 0.2 X10*3/uL (0.0-0.4); Eosinophils Percent Auto 4.5 % (0-4); Hematocrit 33.5 % (42.0-52.0); Hemoglobin 11.3 g/dl (14.0-18.0); Imm Gran Abs Auto 0.02 X10*3/uL (0.00-0.03); Imm Gran Pct Auto 0.4 % (0.0-0.4); Lymphocytes Absolute Auto 0.9 X10*3/uL (1.2-4.9); Lymphocytes Percent Auto 16.7 % (20-40); Mean Corpuscular HGB Conc 33.7 g/dl (31.0-36.0); Mean Corpuscular Hemoglobin 31.1 pg (27.0-33.0); Mean Corpuscular Volume 92.3 fL (80.0-98.0); Mean Platelet Volume 10.1 fL (9.4-12.4); Monocytes Absolute Auto 0.7 X10*3/uL (0.1-1.2); Monocytes Percent Auto 14.2 % (2-11); Neutrophils Absolute Auto 3.3 x10*3/uL (2.0-8.3); Platelet Count 239 X10*3/uL (160-400); Red Blood Count 3.63 X10*6/uL (4.60-5.80); Red Cell Distribution Width 13.8 % (11.0-16.0); White Blood Count 5.2 X10*3/uL (4.8-10.8)
[2023-11-19 14:12] LABS: Anion Gap 14 (12-20); Blood Urea Nitrogen 29 mg/dL (9-16); Calcium 9.1 mg/dL (8.4-10.2); Carbon Dioxide 22 mmol/L (22-29); Chloride 107 mmol/L (96-108); Estimated Glomerular Filt Rate 38; Iron 84 mcg/dL (45-160); Percent Iron Saturation 34 % (15-50); Potassium 4.7 mmol/L (3.3-5.1); Sodium 138 mmol/L (135-145); Total Iron Binding Capacity 250 mcg/dL (228-428); Unsaturated Iron Binding 166 ug/dL
[2023-11-19 14:18] LABS: Ferritin 156 ng/mL (20-250)
== END 2023-11-19 10:42 | disposition home or self-care (01) ==
LOC: HO.10HDL 10:41
PROVIDERS: Visit Provider Internal Medicine Nephrology
DX: I12.9 Hypertensive chronic kidney disease with stage 1 through stage 4 chronic kidney disease, or unspecified chronic kidney disease (principal); N18.4 Chronic kidney disease, stage 4 (severe); E61.1 Iron deficiency; Z98.1 Arthrodesis status
CPT/HCPCS: 36415; 80051; 82310; 82565; 82728; 83540; 84520; 85025; 99212

== ENCOUNTER 2023-11-19 10:42 | Outpatient (AMB) | payer MEDICARE, OTHER, SELFPAY ==
--- NOTE | 2023-11-19 12:14 | A.OFFVIS_ITS ---
Intake Visit Reasons: f/up after surgery with xrays Allergies No Known Allergies Allergy (Mild, Verified 08/27/23 09:54) NONE PFSH Medical History (Updated 08/27/23 @ 10:20 by Checo Greenberg MD) CKD (chronic kidney disease) stage 3, GFR 30-59 ml/min Marginal zone B-cell lymphoma Hx of small bowel obstruction Lumbar spondylitis Degenerative lumbar spinal stenosis Atrial fibrillation Leg edema Apical mural thrombus Arthritis Hiatal hernia Hypothyroidism HTN (hypertension) Rosacea Basal cell carcinoma Lymphadenopathy Surgical History Hx of biopsy Hx of colonoscopy Hx of tonsillectomy Hx of total knee replacement Family History Father Heart disease Social History Household Members: Spouse Housing: House Are you a primary day care home provider to a significant other at home: Yes () Do you presently have visiting nurse or other home services: Yes (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 He had an event about 3 weeks ago where he was getting out of bed in the morning and felt an acute pain in his right lower back somewhere around the SI joint area. It was not radiating down his leg but his leg would feel like it is going to give out a little bit. It seems to have gotten slightly better but he was worried maybe something went wrong with the surgery area. I examined him today and he shows me that the pain is on the right side of his low back down below the lowest stab incision right over the SI joint area. There is some tenderness to palpation there. Leg strength is okay with no focal weakness. I reviewed his x-rays today which show good positioning of the hardware with the exception of on the left side I believe the distal end of the jcarlos down by the S1 pedicle screw has migrated out. Fortunately this is unchanged compared to his x-ray back in July and is on the opposite side of where he is having his pain so I do not think it has anything to do with it. I reassured him that I think the pain will go away with time. I did offer him the option of doing some gentle passive physical therapy just to help with pain relief but he thinks it is getting better on its own and just wanted to be reassured with the x-rays. He will call me if he changes his mind. Total amount of time spent in this visit was 20 minutes in discussion of symptoms, lumbar x-ray imaging results and subsequent plan of care Celio Trevino MD,PhD [facility] Coding Level of Care Code Est Pt Level 3 (49674) Diagnoses S/P lumbar fusion Z98.1
== END 2023-11-19 12:14 | disposition home or self-care (01) ==
PROVIDERS: PCP Internal Medicine; Visit Provider Physician Assistant
DX: Z98.1 Arthrodesis status (principal)
CPT/HCPCS: 99213

== ENCOUNTER 2023-11-19 10:44 | Outpatient (REF) | payer MEDICARE, OTHER, SELFPAY ==
--- NOTE | ~2023-11-19 | XR_ITS ---
EXAMINATION: XR LUMBOSACRAL SPINE WITH OBLIQUES CLINICAL INFORMATION: Other secondary scoliosis, lumbar region. COMPARISON: 07/21/2023 and 03/12/2023. TECHNIQUE: AP and lateral views of the lumbar spine were obtained. Lateral views were obtained in flexion, extension, and neutral positions. FINDINGS: Status post posterior and interbody fusion from L1 through S1 with pedicle screws and a vertical jcarlos on the left from L1 through S1 and on the right from L2 through S1 as well as interbody grafts from L1-L2 through L5-S1. Hardware appears appropriately positioned. No appreciable hardware fractures. Vertebral body heights appear normal. Minimal scoliotic curvature. Mild multilevel retrolisthesis, most notably at L2-L3 and L3-L4, appears unchanged with flexion and extension. There is no appreciable motion in the lumbosacral spine with flexion and extension. Bones are osteopenic. Atherosclerotic calcifications are present in the abdominal aorta and iliac arteries. No aneurysmal dilatation. XR/XR lumbar spine 4V min IMPRESSION: 1. Status post posterior and interbody fusion from L1 through S1 without evidence of hardware complications. 2. Mild multilevel retrolisthesis, unchanged with flexion and extension. No appreciable motion in the lumbosacral spine with flexion and extension.
== END 2023-11-19 10:45 | disposition home or self-care (01) ==
LOC: HO.HOSX 10:44
PROVIDERS: Visit Provider Physician Assistant
DX: M41.9 Scoliosis, unspecified (principal)
CPT/HCPCS: 72110

== ENCOUNTER 2023-11-26 11:40 | Outpatient (AMB) | payer MEDICARE, OTHER, SELFPAY ==
[2023-11-26 12:14] VITALS: BP 148/52; PULSE 63; O2SAT 97; BMI 22.8
--- NOTE | 2023-11-26 12:14 | HO.NEPHOV_ITS ---
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 He had undergone surgical intervention for his back and is recuperating. His serum creatinine is stable. He is closely followed by his oncologist for follow up of his lymphoma and is due to have a follow up PET scan in a few months. He does not have any chest pain, shortness of breath, nausea, vomiting, diarrhea, hematuria or pedal edema. He does not take any excessive nonsteroidal anti-inflammatory medications. He has no dizziness. He takes losartan and nifedipine which he had been tolerating well. His repeat potassium has been normal. His gnlqrmvc-xu-ofa checks his blood pressure at home and has been fairly well controlled [facility] Medical History (Updated 08/27/23 @ 10:20 by Checo Greenberg MD) CKD (chronic kidney disease) stage 3, GFR 30-59 ml/min Marginal zone B-cell lymphoma Hx of small bowel obstruction Lumbar spondylitis Degenerative lumbar spinal stenosis Atrial fibrillation Leg edema Apical mural thrombus Arthritis Hiatal hernia Hypothyroidism HTN (hypertension) Rosacea Basal cell carcinoma Lymphadenopathy Surgical History (Updated 11/26/23 @ 12:18 by DANNI Ashby) History of spinal surgery (~05/2023) Hx of biopsy Hx of colonoscopy Hx of tonsillectomy Hx of total knee replacement Family History Father Heart disease Social History Household Members: Spouse Housing: House Are you a primary resident care coordinator to a significant other at home: Yes () Do you presently have visiting nurse or other home services: Yes (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 ) Alcohol intake: current Alcohol intake frequency: holidays/special occasions only Alcohol type: beer Patient Tobacco Use Status: Former Tobacco user Tobacco use type: Cigarette Cigarette Packs Per Day: 1 Advance Directives Date on File: 05/27/21 service: Yes Current occupational status: retired 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 [employer] Current occupational exposures/hazards: No Physical Exam Vital Signs: Last Vital Signs Pulse 63 11/26/23 12:14 BP 148/52 H 11/26/23 12:14 Pulse Ox 97 11/26/23 12:14 Oxygen Delivery Method Room Air 11/26/23 12:14 BMI result Body Mass Index 22.8 Const General: comfortable and no acute distress Orientation/consciousness: patient oriented x3 HEENT Head: Yes normocephalic Mouth: Normal oral and palatal mucosa present Eyes EOM: EOMs intact bilaterally Neck Neck: Yes supple Resp Auscultation: clear to auscultation bilaterally Cardio Jugular venous distension: no JVD Rate: regular rate GI Palpation (GI): Soft to palpation Auscultation: normal bowel sounds General: Yes no CVA tenderness Back/Spine/Pelvis Back: no CVA tenderness Skin General skin exam: no rashes or lesions noted Neuro General: patient oriented x3 and moves all extremities Extrem General: Yes no pedal edema Results Reviewed Nephrology Results: Hgb 11.3 g/dl (14.0-18.0) L 11/19/23 WBC 5.2 X10*3/uL (4.8-10.8) 11/19/23 Plt Count 239 X10*3/uL (160-400) 11/19/23 Sodium 138 mmol/L (135-145) 11/19/23 Potassium 4.7 mmol/L (3.3-5.1) 11/19/23 Chloride 107 mmol/L (96-108) 11/19/23 Carbon Dioxide 22 mmol/L (22-29) 11/19/23 BUN 29 mg/dL (9-16) H 11/19/23 Creatinine 1.73 mg/dL (0.5-1.4) H 11/19/23 Calcium 9.1 mg/dL (8.4-10.2) 11/19/23 Assessment & Plan Assessment & Plan (1) CKD (chronic kidney disease) stage 3, GFR 30-59 ml/min: Code(s): N18.30 - Chronic kidney disease, stage 3 unspecified Category: Medical Qualifiers: Chronic kidney disease stage 3 subtype: stage 3a (GFR 45-59) Qualified Code(s): N18.31 - Chronic kidney disease, stage 3a (2) HTN (hypertension): Code(s): I10 - Essential (primary) hypertension Category: Medical Qualifiers: Hypertension type: primary hypertension Qualified Code(s): I10 - Essential (primary) hypertension Plan Josh has longstanding CKD and hypertension. His serum K has normalized. His blood pressure is well controlled on current medications. He does not take any excessive nonsteroidal anti-inflammatories. His renal function is better. I did not make any other medication changes today. All his questions were answered. Follow-up blood work was ordered. Orders: Orders Creatinine Today N18.31 - Chronic kidney disease, stage 3a Blood Urea Nitrogen Today N18.31 - Chronic kidney disease, stage 3a Electrolytes Today N18.31 - Chronic kidney disease, stage 3a Coding Level of Care Code Est Pt Level 4 (81023) Diagnoses Stage 3a chronic kidney disease N18.31 Chronic kidney disease stage 3 subtype: stage 3a (GFR 45-59) Primary hypertension I10 Hypertension type: primary hypertension
== END 2023-11-26 12:46 | disposition home or self-care (01) ==
PROVIDERS: PCP Internal Medicine; Visit Provider Internal Medicine Nephrology
DX: N18.31 Chronic kidney disease, stage 3a (principal); I10 Essential (primary) hypertension
CPT/HCPCS: 99214

== ENCOUNTER → 2023-11-26 11:40 | Outpatient (BNVA) | payer MEDICARE, OTHER, SELFPAY | PROVIDERS: PCP Internal Medicine; Visit Provider Internal Medicine Nephrology | DX: I12.9 Hypertensive chronic kidney disease with stage 1 through stage 4 chronic kidney disease, or unspecified chronic kidney disease (principal); N18.31 Chronic kidney disease, stage 3a | CPT/HCPCS: 99212 ==

== ENCOUNTER 2024-03-23 11:37 | Outpatient (REF) | payer MEDICARE, OTHER, SELFPAY ==
[2024-03-23 14:08] LABS: Anion Gap 9 (12-20); Blood Urea Nitrogen 36 mg/dL (9-16); Carbon Dioxide 25 mmol/L (22-29); Chloride 108 mmol/L (96-108); Estimated Glomerular Filt Rate 26; Potassium 4.2 mmol/L (3.3-5.1); Sodium 138 mmol/L (135-145)
== END 2024-03-23 11:38 | disposition home or self-care (01) ==
LOC: HO.10HDL 11:37
PROVIDERS: Visit Provider Internal Medicine Nephrology
DX: N18.31 Chronic kidney disease, stage 3a (principal)
CPT/HCPCS: 36415; 80051; 82565; 84520

== ENCOUNTER 2024-03-31 09:29 | Outpatient (AMB) | payer MEDICARE, OTHER, SELFPAY ==
--- NOTE | 2024-03-31 09:29 | HO.NEPHOV ---
Vital Signs 03/31/24 09:30 Height 5 ft 8 in Weight 155 lb 8 oz BMI 23.6 BP 130/70 Blood Pressure Location Lt brachial Position Sitting Pulse 59 Pulse Source Pulse Oximeter Pulse Oximetry (%) 98 Oxygen Delivery Method Room Air Intake Visit Reasons: 4 mon follow up/ Conf Communication Specialist Required: No Accompanied by: Daughter Allergies No Known Allergies Allergy (Mild, Verified 03/31/24 09:30) NONE HPI Comments Details: Josh was seen in the office in follow-up of his chronic kidney disease and hypertension. He had undergone surgical intervention for his back. Currently he is having pain in his SI joint. He also has been having some GI symptoms. He is closely followed by his oncologist for follow up of his lymphoma and is due to have a follow up PET scan in a few months. He does not have any chest pain, shortness of breath, nausea, vomiting, diarrhea, hematuria or pedal edema. He does not take any excessive nonsteroidal anti-inflammatory medications. His kmkmziul-hx-ogr checks his blood pressure at home and has been fairly well controlled [facility] Medical History (Updated 01/14/24 @ 11:35 by Diamond Vick MD) CKD (chronic kidney disease) stage 3, GFR 30-59 ml/min Marginal zone B-cell lymphoma Hx of small bowel obstruction Lumbar spondylitis Degenerative lumbar spinal stenosis Atrial fibrillation Leg edema Apical mural thrombus Arthritis Hiatal hernia Hypothyroidism HTN (hypertension) Rosacea Basal cell carcinoma Lymphadenopathy Surgical History History of spinal surgery (~05/2023) Hx of biopsy Hx of colonoscopy Hx of tonsillectomy Hx of total knee replacement Family History Father Heart disease Social History Household Members: Spouse Housing: House Are you a primary insurance healthcare representative to a significant other at home: Yes () Do you presently have visiting nurse or other home services: Yes (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 ) Alcohol intake: current Alcohol intake frequency: holidays/special occasions only Alcohol type: beer Patient Tobacco Use Status: Former Tobacco user Tobacco use type: Cigarette Cigarette Packs Per Day: 1 Advance Directives Date on File: 05/27/21 service: Yes Current occupational status: retired 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 Current occupational exposures/hazards: No Review of Systems Const All systems reviewed & are unremarkable except as noted in HPI and below Physical Exam Vital Signs: Last Vital Signs Pulse 59 03/31/24 09:30 BP 130/70 03/31/24 09:30 Pulse Ox 98 03/31/24 09:30 Oxygen Delivery Method Room Air 03/31/24 09:30 BMI result Body Mass Index 23.6 Const General: comfortable and no acute distress Orientation/consciousness: patient oriented x3 HEENT Head: Yes normocephalic Mouth: Normal oral and palatal mucosa present Eyes EOM: EOMs intact bilaterally Neck Neck: Yes supple Resp Auscultation: clear to auscultation bilaterally Cardio Jugular venous distension: no JVD Rate: regular rate GI Palpation (GI): Soft to palpation Auscultation: normal bowel sounds General: Yes no CVA tenderness Back/Spine/Pelvis Back: no CVA tenderness Skin General skin exam: no rashes or lesions noted Neuro General: patient oriented x3 and moves all extremities Extrem General: Yes no pedal edema Results Reviewed Nephrology Results: Hgb 10.7 g/dl (14.0-18.0) L 01/14/24 WBC 4.3 X10*3/uL (4.8-10.8) L 01/14/24 Plt Count 201 X10*3/uL (160-400) 01/14/24 Sodium 138 mmol/L (135-145) 03/23/24 Potassium 4.2 mmol/L (3.3-5.1) 03/23/24 Chloride 108 mmol/L (96-108) 03/23/24 Carbon Dioxide 25 mmol/L (22-29) 03/23/24 BUN 36 mg/dL (9-16) H 03/23/24 Creatinine 2.41 mg/dL (0.5-1.4) H 03/23/24 Calcium 9.1 mg/dL (8.4-10.2) 01/14/24 Assessment & Plan Assessment & Plan (1) CKD (chronic kidney disease) stage 4, GFR 15-29 ml/min: Code(s): N18.4 - Chronic kidney disease, stage 4 (severe) Category: Medical (2) HTN (hypertension): Code(s): I10 - Essential (primary) hypertension Category: Medical Qualifiers: Hypertension type: primary hypertension Qualified Code(s): I10 - Essential (primary) hypertension Plan Josh has longstanding CKD and hypertension. His serum K has normalized. His blood pressure is well controlled on current medications. His serum creatinine is marginally up from his baseline. If it does not settle down, I plan to back off his ARB, increase his Nifedipine and initiate him on SGLT2 i as well. He does not take any excessive nonsteroidal anti-inflammatories. I did not make any other medication changes today. All his questions were answered. Orders: Orders Creatinine 3 Months N18.4 - Chronic kidney disease, stage 4 (severe) Parathyroid Hormone Intact 3 Months N18.4 - Chronic kidney disease, stage 4 (severe) Blood Urea Nitrogen 3 Months N18.4 - Chronic kidney disease, stage 4 (severe) Electrolytes 3 Months N18.4 - Chronic kidney disease, stage 4 (severe) Vitamin D 25-OH Total 3 Months N18.4 - Chronic kidney disease, stage 4 (severe) Coding Level of Care Code Est Pt Level 4 (18550) Diagnoses CKD (chronic kidney disease) stage 4, GFR 15-29 ml/min N18.4 Primary hypertension I10 Hypertension type: primary hypertension
[2024-03-31 09:30] VITALS: BP 130/70; PULSE 59; O2SAT 98; BMI 23.6
== END 2024-03-31 09:52 | disposition home or self-care (01) ==
PROVIDERS: PCP Internal Medicine; Visit Provider Internal Medicine Nephrology
DX: I12.9 Hypertensive chronic kidney disease with stage 1 through stage 4 chronic kidney disease, or unspecified chronic kidney disease (principal); N18.4 Chronic kidney disease, stage 4 (severe)
CPT/HCPCS: 99214

== ENCOUNTER → 2024-03-31 09:29 | Outpatient (BNVA) | payer MEDICARE, OTHER, SELFPAY | PROVIDERS: PCP Internal Medicine; Visit Provider Internal Medicine Nephrology | DX: I12.9 Hypertensive chronic kidney disease with stage 1 through stage 4 chronic kidney disease, or unspecified chronic kidney disease (principal); N18.4 Chronic kidney disease, stage 4 (severe) | CPT/HCPCS: 99212 ==

== ENCOUNTER 2024-04-19 11:02 | Outpatient (AMB) | payer MEDICARE, OTHER, SELFPAY ==
--- NOTE | 2024-04-19 11:13 | A.OFFVIS_ITS ---
Vital Signs 04/19/24 11:15 Height 5 ft 8 in Weight 153 lb BMI 23.3 BP 132/71 Blood Pressure Location Lt brachial Position Sitting Respiration 15 Pulse 67 Pulse Source Pulse Oximeter Pulse Oximetry (%) 95 Oxygen Delivery Method Room Air Intake Visit Reasons: FU possible SIJ inj Allergies No Known Allergies Allergy (Mild, Verified 04/19/24 11:16) NONE Medication List - Last Reconciled 04/19/24 by Lisa Moctezuma LPN acetaminophen (Tylenol) 325 mg PO TID apixaban (Eliquis) 2.5 mg PO BID atorvastatin 20 mg PO BEDTIME levothyroxine 75 mcg PO DAILY@0630 losartan 50 mg See Protocol PO BID 90 days metoprolol tartrate 100 mg PO BID multivitamin 1 tab PO DAILY nifedipine ER 30 mg PO BID HPI HPI FU possible SIJ inj: Details: 84-year-old male who presents to the office today for evaluation of low back pain. Patient with a history of back pain and scoliosis. He had an MRI of the lumbar spine which revealed degenerative changes, incidentally noted enlargement of the paraaortic, paracaval, and iliac lymph nodes were seen. He is status post elective L1-S1 minimally invasive anterior/oblique and trans Kambin approaches for correction of scoliosis. While in the office today, patient reports three months after the surgery, he was unable to use his right leg and had pain above his right hip area. He had some x-rays, which were unremarkable. He was going to physical therapy for it and he was suggested to get a shot. He reports the pain is now in the right lower back. With pain, he has difficulty walking and standing. [facility] Medical History (Updated 04/25/24 @ 09:55 by Jose Timmons MD) CKD (chronic kidney disease) stage 3, GFR 30-59 ml/min Marginal zone B-cell lymphoma Hx of small bowel obstruction Lumbar spondylitis Degenerative lumbar spinal stenosis Atrial fibrillation Leg edema Apical mural thrombus Arthritis Hiatal hernia Hypothyroidism HTN (hypertension) Rosacea Basal cell carcinoma Lymphadenopathy Surgical History History of spinal surgery (~05/2023) Hx of biopsy Hx of colonoscopy Hx of tonsillectomy Hx of total knee replacement Family History Father Heart disease Social History Household Members: Spouse Housing: House Are you a primary animal care attendant to a significant other at home: Yes () Do you presently have visiting nurse or other home services: Yes (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 ) Alcohol intake: current Alcohol intake frequency: holidays/special occasions only Alcohol type: beer Patient Tobacco Use Status: Former Tobacco user Tobacco use type: Cigarette Cigarette Packs Per Day: 1 Advance Directives Date on File: 05/27/21 service: Yes Current occupational status: retired 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 Alert and oriented. Mood and affect appropriate. Follows and participates in conversation appropriately. Respiratory effort is unlabored. Able to transition from sit to stand unassisted. Ambulates with bilaterally normal heel strike and toe off. There is tenderness overlying the right SI joint. SI joint provocation also reproduces pain on the right side with the Kassidy test. Results Reviewed Results Reviewed: No imaging is available for review. Assessment & Plan Assessment & Plan (1) Right buttock pain: Code(s): M79.18 - Myalgia, other site Category: Medical (2) SI (sacroiliac) joint dysfunction: Code(s): M53.3 - Sacrococcygeal disorders, not elsewhere classified Category: Medical Plan Discussed diagnostic right SI injection as possible treatment for the pain. We will schedule him for a right diagnostic SI joint injection. Discussed the risks and benefits of the procedure with the patient in detail. All questions were answered. The patient is on board with the plan. Justification for interventional therapy: ? Patient with average pain > 6/10 ? Patient has exhausted conservative therapy. ? Patient unable to tolerate physical therapy due to pain. . Patient has a good understanding of their pain condition and has appropriate mental and social support. Scribed for Dr. Timmons by Shahid Forbes, medical apparatus model maker, on 04/19/2024. I, Dr. Timmons, have personally reviewed and agree with the information entered by the scribe. Coding Level of Care Code Est Pt Level 3 (44508) Diagnoses Right buttock pain M79.18 SI (sacroiliac) joint dysfunction M53.3
[2024-04-19 11:15] VITALS: BP 132/71; PULSE 67; RESP 15; O2SAT 95; BMI 23.3
== END 2024-04-19 11:48 | disposition home or self-care (01) ==
PROVIDERS: PCP Internal Medicine; Visit Provider Internal Medicine
DX: M79.18 Myalgia, other site (principal); M53.3 Sacrococcygeal disorders, not elsewhere classified
CPT/HCPCS: 99213

== ENCOUNTER → 2024-04-19 11:02 | Outpatient (BNVA) | payer MEDICARE, OTHER, SELFPAY | PROVIDERS: PCP Internal Medicine; Visit Provider Internal Medicine | DX: M79.18 Myalgia, other site (principal); M53.3 Sacrococcygeal disorders, not elsewhere classified | CPT/HCPCS: 99212 ==

== ENCOUNTER 2024-04-21 08:40 | Outpatient (REF) | payer MEDICARE, OTHER, SELFPAY ==
--- NOTE | ~2024-04-21 | CT_ITS ---
EXAMINATION: CT ABDOMEN AND PELVIS WITHOUT CONTRAST CLINICAL INFORMATION: Rule out recurrent GI lymphoma. COMPARISON: 04/01/2022, 07/03/2021, and exams dating back to 09/14/2017. PET CT 07/27/2022. TECHNIQUE: Multidetector volumetric imaging was performed from the superior aspect of the liver through the pubic symphysis. Sagittal and coronal reformatted images were obtained on the technologist's workstation. This CT examination was performed using dose optimization techniques as appropriate, variously including the following: *Automated exposure control *Adjustment of mA and/or kV according to patient size (this includes techniques or standardized protocols for targeted exams where dose is matched to indication/reason for exam; i.e. extremities or head) *Use of iterative reconstruction technique DLP: 458 mGy-cm -Absence of IV and oral contrast significantly limits evaluation of solid organs and bowel structures. FINDINGS: LUNG BASES: Dependent and linear type atelectasis present, mild stable scarring in the right middle lobe distribution with subpleural lower lobes. No nodules seen. There is mild cardiac enlargement. There are heavy coronary calcifications, as well as mitral and aortic annular calcifications. LIVER, GALLBLADDER, AND BILIARY TREE: The liver is normal in size, shape, and attenuation. No focal hepatic lesion or biliary ductal dilatation is present. The gallbladder is unremarkable with no evidence of radiopaque gallstones, gallbladder wall thickening, or obvious pericholecystic inflammatory changes. PANCREAS: Unremarkable. SPLEEN: -Unremarkable aside from tiny punctate calcified granulomata. ADRENAL GLANDS: Unremarkable. KIDNEYS AND URETERS: -There is a 2.9 x 2.8 cm parapelvic cyst in the mid pole left kidney. -There is a 2.1 x 2.3 cm cyst in the lower pole right kidney. -There is mild generalized cortical thinning bilaterally. There is a 3 mm cortical calcification in the left kidney lower pole (series 5, image 86). -Both kidneys otherwise image normally without evidence of additional cyst, mass, or calculus. -No hydronephrosis or hydroureter. BLADDER: -Poorly distended. Mild diffuse wall thickening suspected despite underdistention, most likely detrusor hypertrophy. Cannot exclude underlying cystitis. No masses or calculi. GASTROINTESTINAL TRACT: -The stomach, GE junction, duodenum, and jejunum image normally. -Minimal persistent thickening surrounding the most terminal ileum at the ileocecal valve level. This appears improved. -The colon and rectum are normal in caliber without wall thickening or inflammation. There are rare sigmoid diverticula. ABDOMINAL WALL: -No mass, abnormal lymph node, or hernia is evident. -Surgical clips in the right inguinal region. LYMPH NODES: -No pathologic lymphadenopathy present. VASCULAR: -Heavy calcification and tortuosity of the aorta and iliac arteries. No aneurysm. -There is at least moderate stenosis at the origin of the SMA. -Heavy calcification of the left common femoral artery leads to a high-grade stenosis (series 3, image 82). -Calcification of the right common femoral artery leads to a moderate grade stenosis (series 3, image 85). PELVIC VISCERA: -The prostate is mildly enlarged, measuring a diameter of 4.5 cm. Median lobe protrudes minimally into the bladder base. It is otherwise sonographically normal in appearance. -There are small bilateral left greater than hydroceles. OSSEOUS STRUCTURES: -There is osteopenia. -Right convex scoliosis of the lumbar spine apex at L2. -Severe degenerative spondylosis of the lumbar spine with dorsal fusion and discectomy of L1-S1. Hardware appears intact. Pedicles screws demonstrate no complication or loosening. Disc prostheses in place. -There is no lytic or blastic suspicious bone lesion. There are no acute bone findings. CT/CT abdomen pelvis wo IV con IMPRESSION: 1. There is no evidence of abnormal lymphadenopathy or recurrent GI lymphoma. Minimal persistent thickening of the most terminal ileum abutting the ileocecal valve is present, however appears mildly improved from the prior exam. No suspicious activity was present on PET/CT 07/27/2022. 2. Heavy vascular calcification, with least moderate grade stenosis at the SMA origin, moderate grade stenosis at the right common femoral artery, and severe stenosis of the left common femoral artery. See above. 3. Additional Ancillary findings as discussed in the body of the report, unchanged and stable. Electronically signed by: Denilson Marie MD 04/26/2024 09:33 AM [facility]
== END 2024-04-21 08:41 | disposition home or self-care (01) ==
LOC: HO.CT 08:40
PROVIDERS: PCP Internal Medicine; Visit Provider Internal Medicine
DX: R19.8 Other specified symptoms and signs involving the digestive system and abdomen (principal); C85.80 Other specified types of non-Hodgkin lymphoma, unspecified site
CPT/HCPCS: 74176

== ENCOUNTER → 2024-04-21 08:42 | Outpatient (BNV) | payer MEDICARE, OTHER, SELFPAY | PROVIDERS: PCP Internal Medicine; Visit Provider Radiology Diagnostic Radiology | DX: C85.80 Other specified types of non-Hodgkin lymphoma, unspecified site (principal) | CPT/HCPCS: 74176 ==

== ENCOUNTER 2024-05-04 06:26 | Outpatient (REF) | payer MEDICARE, OTHER, SELFPAY ==
--- NOTE | ~2024-05-04 | FL_ITS ---
EXAMINATION: FLUORO GUIDANCE IN TREATMENT ROOM CLINICAL INFORMATION: Sacrococcygeal disorders, not elsewhere classified. COMPARISON: None available. TECHNIQUE: Fluoroscopy supervised by: Dr. Jose Timmons. Fluoroscopy time: 0.1 minutes. Cumulative Dose: 1.60 mGy. DAP: 0.09955 mGy-m2 (milligray-meter squared). Images: 3. FINDINGS: Needle overlies the right SI joint. FL/FL guidance in treatment room IMPRESSION: Fluoroscopy during procedure. Please see procedure report for additional information. Electronically signed by: Huber Dunn MD 06/08/2024 08:01 AM KATHY
== END 2024-05-04 06:27 | disposition home or self-care (01) ==
LOC: CF 06:26
PROVIDERS: Visit Provider Internal Medicine
DX: M53.3 Sacrococcygeal disorders, not elsewhere classified (principal)
CPT/HCPCS: 27096; J2003; J2795

== ENCOUNTER 2024-05-04 09:22 | Outpatient (AMB) | payer MEDICARE, OTHER, SELFPAY ==
[2024-05-04 09:32] VITALS: BP 185/77; PULSE 59; O2SAT 99
--- NOTE | 2024-05-04 09:32 | A.OFFVIS_ITS ---
Vital Signs 05/04/24 09:32 05/04/24 09:55 BP 185/77 H 177/71 H Blood Pressure Location Lt brachial Lt brachial Position Sitting Sitting Pulse 59 62 Pulse Source Pulse Oximeter Pulse Oximeter Pulse Oximetry (%) 99 99 Oxygen Delivery Method Room Air Room Air Intake Visit Reasons: Right Dx SIJ inj Allergies No Known Allergies Allergy (Mild, Verified 04/19/24 11:16) NONE HPI HPI Right Dx SIJ inj: Details: Patient presents for scheduled procedure. Denies any recent cough, cold, infection, fever or other significant changes in medical history since last of fice visit. [facility] Medical History (Updated 04/25/24 @ 09:55 by Jose Timmons MD) CKD (chronic kidney disease) stage 3, GFR 30-59 ml/min Marginal zone B-cell lymphoma Hx of small bowel obstruction Lumbar spondylitis Degenerative lumbar spinal stenosis Atrial fibrillation Leg edema Apical mural thrombus Arthritis Hiatal hernia Hypothyroidism HTN (hypertension) Rosacea Basal cell carcinoma Lymphadenopathy Surgical History History of spinal surgery (~05/2023) Hx of biopsy Hx of colonoscopy Hx of tonsillectomy Hx of total knee replacement Family History Father Heart disease Social History Household Members: Spouse Housing: House Are you a primary gericare aide teacher to a significant other at home: Yes () Do you presently have visiting nurse or other home services: 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 ) Alcohol intake: current Alcohol intake frequency: holidays/special occasions only Alcohol type: beer Patient Tobacco Use Status: Former Tobacco user Tobacco use type: Cigarette Cigarette Packs Per Day: 1 Advance Directives Date on File: 05/27/21 service: Yes Current occupational status: retired 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 Immediately prior to starting the procedure, a time-out safety check was conducted. The patient's identification, procedure name, procedure site, and procedure laterality were confirmed with the patient. ? Patient was placed prone on the fluoroscopy table and the lumbosacral area was prepped using ChloraPrep and draped with sterile draped in standard fashion. The C-arm was rotated in a contralateral oblique fashion until the medial border of the iliac crest no longer foreshadowed the posterior sacroiliac joint line. The skin and subcutaneous tissue was anesthetized using 1 mL of 0.75% plain lidocaine with 1.5-inch 25-gauge needle in the middle region of the joint line.?A 3.5-inch 22-gauge spinal needle with small bend on the tip was slowly advanced towards the joint line, coaxial to the x-ray beam. Once bony content was obtained, the needle was easily slid into the intra-articular space.?Intra- articular needle position was confirmed using lateral fluoroscopy.? A total volume of 2.5mL 0.5% of ropivacaine was injected intra-articularly. The stylet was reinserted and needle was removed. The patient tolerated the procedure well. Patient denied any lower extremity we akness or numbness. Patient was observed for 30 min and was discharged after fulfilling the standard discharge criteria. Coding 75259 - Sacroiliac Procedure code (CPT) selection complete Assessment & Plan Assessment & Plan (1) SI (sacroiliac) joint dysfunction: Code(s): M53.3 - Sacrococcygeal disorders, not elsewhere classified Category: Medical Plan Patient is status post diagnostic right sacroiliac joint injection. Patient tolerated procedure well and was discharged home in stable condition with discharge instructions. All questions were answered. We will follow-up via telephone or in clinic to assess response to therapy. A follow-up appointment was made during today's visit. Orders: Orders FL guidance in treatment room Today M53.3 - Sacrococcygeal disorders, not elsewhere classified Coding Level of Care Code Procedure Only Diagnoses SI (sacroiliac) joint dysfunction M53.3 CPT Codes Coding - Joint 9: 50909 - Sacroiliac ([id number])
[2024-05-04 09:55] VITALS: BP 177/71; PULSE 62; O2SAT 99
== END 2024-05-04 09:56 | disposition home or self-care (01) ==
PROVIDERS: PCP Internal Medicine; Visit Provider Internal Medicine
DX: M53.3 Sacrococcygeal disorders, not elsewhere classified (principal)
CPT/HCPCS: 27096

== ENCOUNTER 2024-05-12 09:30 | Outpatient (AMB) | payer MEDICARE, OTHER, SELFPAY ==
[2024-05-12 09:37] VITALS: BP 181/77; PULSE 56; O2SAT 96; BMI 23.1
--- NOTE | 2024-05-12 09:37 | A.OFFVIS_ITS ---
Vital Signs 05/12/24 09:37 Height 5 ft 8 in Weight 152 lb BMI 23.1 BP 181/77 H Blood Pressure Location Lt brachial Position Sitting Pulse 56 Pulse Source Pulse Oximeter Pulse Oximetry (%) 96 Oxygen Delivery Method Room Air Intake Visit Reasons: s/p right Dx SIJ inj Intake Note: Pain today while walking 7/10, sitting 3/10 Can Tender Required: No Accompanied by: Daughter Allergies No Known Allergies Allergy (Mild, Verified 05/12/24 09:37) NONE HPI Comments Details: Patient presents today to assess response to Right Diagnostic SIJ injection on 05/04/[address] Timmons. Patient reports 0% pain relief since procedure with no improvement in his ADLs, mobility or sleep. He continues to endorse right buttock pain with radiation into his right lateral hip and into his right groin. Pain is most severe with walking, weight bearing or climbing stairs, rating pain at 7/10, changing position from sitting to standing 5/10 and less pain with sitting or resting, 3/10. Patient would like to undergo Right Diagnostic SIJ injection as this continues to be a source of his major pain generator. He reports completing formal courses of PT and home exercise program without any improvement. Patient is also noted with leg discrepancy, with right leg being longer than the left leg. Denies any recent cough, cold, infection, fever or any significant changes in medical history since last office visit. PRIOR Dr. Timmons 04/19/24: 84-year-old male who presents to the office today for evaluation of low back pain. Patient with a history of back pain and scoliosis. He had an MRI of the lumbar spine which revealed degenerative changes, incidentally noted enlargement of the paraaortic, paracaval, and iliac lymph nodes were seen. He is status post elective L1-S1 minimally invasive anterior/oblique and trans Kambin approaches f or correction of scoliosis. While in the office today, patient reports three months after the surgery, he was unable to use his right leg and had pain above his right hip area. He had some x-rays, which were unremarkable. He was going to physical therapy for it and he was suggested to get a shot. He reports the pain is now in the right lower back. With pain, he has difficulty walking and standing. [facility] Medical History CKD (chronic kidney disease) stage 3, GFR 30-59 ml/min Marginal zone B-cell lymphoma Hx of small bowel obstruction Lumbar spondylitis Degenerative lumbar spinal stenosis Atrial fibrillation Leg edema Apical mural thrombus Arthritis Hiatal hernia Hypothyroidism HTN (hypertension) Rosacea Basal cell carcinoma Lymphadenopathy Surgical History History of spinal surgery (~05/2023) Hx of biopsy Hx of colonoscopy Hx of tonsillectomy Hx of total knee replacement Family History Father Heart disease Social History Household Members: Spouse Housing: House Are you a primary director of healthcare systems to a significant other at home: Yes () Do you presently have visiting nurse or other home services: 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 ) Alcohol intake: current Alcohol intake frequency: holidays/special occasions only Alcohol type: beer Patient Tobacco Use Status: Former Tobacco user Tobacco use type: Cigarette Cigarette Packs Per Day: 1 Advance Directives Date on File: 05/27/21 service: Yes Current occupational status: retired 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 Alert and oriented. Mood and affect appropriate. Follows and participates in conversation appropriately. Respiratory effort is unlabored. Able to transition from sit to stand unassisted. Ambulates with bilaterally normal heel strike and toe off. There is moderate tenderness overlying the right SI joint. Notable leg discrepance, right leg longer than the left leg. +Eamon's, Pelvic compresson, Stinchfield on the right. Right groin pain with I/E hip rotations. SI joint provocation also reproduces pain on the right side with the Kassidy test. Extrem General: Yes capillary refill normal, Yes no clubbing, cyanosis or edema and Yes no calf tenderness Results Reviewed Results Reviewed: MRI FEMUR WITHOUT CONTRAST, RIGHT 10/20/21 CLINICAL INFORMATION: Right buttock pain. Myalgia. Lymphoma. COMPARISON: Most recent PET/CT dated 09/16/2021. TECHNIQUE: Multisequence MR imaging of the right femur was obtained without contrast on a high-field strength scanner. FINDINGS: BONE: No abnormal marrow signal. No stress reaction, fracture, or avascular necrosis. No marrow edema to suggest acute osseous injury. No concerning lytic or blastic osseous lesion. MUSCLES/TENDONS: The visualized muscles and tendons are intact. No evidence of acute injury. INTRAPELVIC STRUCTURES: Grossly unremarkable. SOFT TISSUES: Along the periphery of the right gluteal musculature within the fascial plane, there is a fluid collection measuring up to 5.6 x 0.5 x 9.3 cm. No significant adjacent soft tissue edema. No soft tissue component. Small right hip joint effusion. No additional soft tissue mass, fluid collection, or edema. IMPRESSION: 1. Fluid within the fascial plane overlying the lateral aspect of the right gluteal musculature. Findings could represent bursitis versus sequela of a remote fascial avulsion injury. No adjacent inflammatory change. 2. Small right hip joint effusion. 3. No evidence of acute osseous abnormality. No stress reaction, fracture, or avascular necrosis. Assessment & Plan Assessment & Plan (1) Right buttock pain: Code(s): M79.18 - Myalgia, other site Category: Medical (2) Right hip pain: Code(s): M25.551 - Pain in right hip Category: Medical (3) SI (sacroiliac) joint dysfunction: Code(s): M53.3 - Sacrococcygeal disorders, not elsewhere classified Category: Medical Plan Patient is one week status post diagnostic right sacroiliac joint injection with no pain relief. He presents today with persistent right buttock pain and lateral right hip and intermittent right groin pain. We will proceed with right hip xray to asses degenerative changes and degree or arthritis. He also has notable leg discrepancy. All questions and concerns have been answered and patient agreed with the plan. Follow up with Dr. Timmons for xray results and sooner as needed. Orders: Orders XR hip RT 1V w/wo pel Today M25.551 - Pain in right hip, M79.18 - Myalgia, other site Coding Level of Care Code Est Pt Level 4 (71664) Complex EM visit Add On G2211 Diagnoses Right buttock pain M79.18 Right hip pain M25.551 SI (sacroiliac) joint dysfunction M53.3
== END 2024-05-12 10:08 | disposition home or self-care (01) ==
PROVIDERS: PCP Internal Medicine; Visit Provider Nurse Practitioner Family
DX: M79.18 Myalgia, other site (principal); M25.551 Pain in right hip; M53.3 Sacrococcygeal disorders, not elsewhere classified
CPT/HCPCS: 99214; G2211

== ENCOUNTER 2024-05-12 09:30 | Outpatient (REF) | payer MEDICARE, OTHER, SELFPAY ==
--- NOTE | ~2024-05-12 | XR_ITS ---
CLINICAL HISTORY: M25.551 - Pain in right hip 2 view, pelvis and right hip Comparison: None Findings: No acute fracture or dislocation. Periarticular osteophyte formation at the right hip joint. Arterial vascular calcifications are present. Lumbosacral fusion hardware is present. The soft tissues are unremarkable. IMPRESSION: No acute findings. This document has been electronically signed by: Jose Vale MD on 05/16/2024 14:43:58
== END 2024-05-12 09:31 | disposition home or self-care (01) ==
LOC: HO.XRAY 09:30
PROVIDERS: PCP Internal Medicine; Visit Provider Nurse Practitioner Family
DX: M79.18 Myalgia, other site (principal); M25.551 Pain in right hip; M53.3 Sacrococcygeal disorders, not elsewhere classified
CPT/HCPCS: 73502; 99212

== ENCOUNTER → 2024-05-12 10:22 | Outpatient (BNV) | payer MEDICARE, OTHER, SELFPAY | PROVIDERS: PCP Internal Medicine; Visit Provider Radiology Diagnostic Radiology | DX: M25.551 Pain in right hip (principal) | CPT/HCPCS: 73502 ==

== ENCOUNTER → 2024-06-02 09:24 | Outpatient (BNVA) | payer MEDICARE, OTHER, SELFPAY | PROVIDERS: PCP Internal Medicine; Visit Provider Nurse Practitioner Family | DX: I48.91 Unspecified atrial fibrillation (principal); I25.10 Atherosclerotic heart disease of native coronary artery without angina pectoris; I10 Essential (primary) hypertension; I51.3 Intracardiac thrombosis, not elsewhere classified | CPT/HCPCS: 99212 ==

== ENCOUNTER 2024-07-03 09:12 | Outpatient (REF) | payer MEDICARE, OTHER, SELFPAY ==
--- OUTSIDE RECORDS SUMMARY | 2024-07-03 09:49 | XMS_ITS | Clinical Summary ---
Author Organization [facility] Address [address] [place] [address] Phone Care Team Providers Care Broiler Supervisor Name Role Phone Eamon Hahn MD Primary Care Provider [phone] Allergies No known active allergies Medications levothyroxine (SYNTHROID, LEVOTHROID) 75 MCG tablet Take 1 tablet by mouth 1 (one) time each day Active omeprazole (PriLOSEC) [address] capsule Take 1 capsule by mouth 1 (one) time each day Active losartan (COZAAR) 50 MG tablet Take 1 tablet by mouth 2 (two) times a day 11/29/2020 Active metoprolol tartrate (LOPRESSOR) 100 MG tablet Take 1 tablet by mouth 2 (two) times a day 11/29/2020 Active NIFEdipine CC (ADALAT CC) 30 MG 24 hr tablet Take 30 mg by mouth in the morning and 30 mg in the evening. 07/11/2021 Active traMADol (ULTRAM) 50 MG tablet Take 50 mg by mouth if needed for moderate pain Active Eliquis 2.5 MG tablet Take 2.5 mg by mouth 2 (two) times a day 05/29/2022 Active atorvastatin (LIPITOR) 20 MG tablet Take 20 mg by mouth at bed time 05/27/2022 Active Active Problems Problem Noted Date Diagnosed Date Low back pain 10/08/2021 Arthritis of facet joint of lumbar spine 022 Stage 3a chronic kidney disease 03/28/2021 Atrial fibrillation 12/19/2020 Chronic kidney disease, stage 2 (mild) Acute nontraumatic kidney injury 12/11/2020 Chronic kidney disease stage 1 10/16/2020 Hypertensive heart and renal disease with (congestive) heart failure 10/16/2020 Proteinuria 10/16/2020 Hypertension 10/16/2020 Essential hypertension 03/19/2017 Hyponatremia 03/19/2017 Resolved Problems Problem Noted Date Diagnosed Date Resolved Date Patrick's esophagus 03/19/2017 03/27/20 Gastroesophageal reflux disease 03/19/2017 03/27/2021 Primary osteoarthritis of left knee 03/19/2017 03/27/2021 Pure hypercholesterolemia 03/19/2017 Immunizations Name Administration Dates Next Due Influenza Split High Dose Preservative Free IM 0 12/28/2019 Influenza Vaccine, Quadrivalent, Adjuvanted 03/10 Influenza, Unspecified 03/06/2019 Pfizer SARS-COV-2 06/12/2020,05/22/2020 Pneumococcal Conjugate 13-Valent 01/12/2020 Pneumococcal Polysaccharide 12/27/2020 TD Preservative Free 01/30/2014 Td, Unspecified 05/10/2002 Zoster 03/22/2015 Family History Medical History Relation Comments Stroke Father Relation Status Comments Father Mother Social History Tobacco Use Types Packs/Day Years Used Date Smoking Tobacco: Former Smokeless Tobacco: Never Tobacco Cessation:Counseling Given: Not Answered Alcohol Use Standard Drinks/Week Comments Yes 0 (1 standard drink = 0.6 oz pure alcohol) Alcoholic Drinks/day: Occasional social drink Sex and Gender Information Value Date Recorded Sex Assigned at Not on file Legal Sex Male 5:03 PM EST Gender Identity Not on file Sexual Orientation Not on file Last Filed Vital Signs Vital Sign Reading Time Taken Comments Blood Pressure 201/89 05/20/2023 2:02 PM EST Pulse 56 05/20/2023 2:02 PM EST Temperature 36.2 ??C (97.2 ??F) 05/20/2023 2:02 PM ES T Respiratory Rate - - Oxygen Saturation 98% 05/20/2023 2:02 PM EST Inhaled Oxygen Concentration - - Weight 69.9 kg (154 lb) 05/20/2023 2:02 PM EST Height 172.7 cm (5' 8 ) 05/20/2023 2:02 PM EST Body Mass Index 23.42 05/20/2023 2:02 PM EST Plan of Treatment Health Maintenance Due Date Last Done Comments Influenza Vaccine (#1) 2024 3, 03/23/2022, 12/28/2019, Additional history exists Pneumococcal Vaccine: 65+ Years Completed 12/27/2020, 01/12/2020 Hepatitis B Vaccine Aged Out No longe r eligible based on patient's age to complete this topic Insurance MEDICARE MEDICARE UNICARE Care Teams Broiler Supervisor Relationship Specialty Start Date End Date Eamon Hahn MD [address] [place] [address] PCP - General 05/20/20
--- OUTSIDE RECORDS SUMMARY | 2024-07-03 09:49 | XMS_ITS | Clinical Summary ---
Author Organization [facility] Address [address] [place] [address] Care Team Providers Care Fire Sprinkler Apparatus Inspector Name Role Phone Eamon Hahn MD Primary Care Provider Medications Medication Sig Dispensed Refills Start Date End Date Status apixaban (ELIQUIS) 2.5 MG TABS tablet Take 1 tablet (2.5 mg total) by mouth. 0 05/29/2022 Active ascorbic acid (VITAMIN C) 500 MG tablet Take 1 tablet (500 mg total) by mouth every 7 days. 0 Active levothyroxine (SYNTHROID) tablet 75 mcg TAKE 1 TABLET BY MOUTH EVERY MORNING (NEW DOSE) 0 04/12/2023 Active metoprolol tartrate (LOPRESSOR) 100 MG tablet Take 1 tablet (100 mg total) by mouth 2 (two) times a day. 0 11/29/2020 Active omeprazole (PriLOSEC) 20 MG capsule Take 1 capsule (20 mg total) by mouth. 0 Active NIFEdipine ER (ADALAT CC) 30 MG 24 hr tablet Take 1 tablet (30 mg total) by mouth. 0 07/11/2021 Active Multiple Vitamins-Minerals (Oncovite) TABS Take 1 tablet by mouth daily. 0 Active Social History Tobacco Use Types Packs/Day Years Used Date Smoking Tobacco: Never Assessed Sex and Gender Information Value Date Recorded Sex Assigned at Not on file Gender Identity Not on file Sexual Orientation Not on file Job Start Date Occupation Industry Not on file Not on file Not on file Last Filed Vital Signs Vital Sign Reading Time Taken Comments Blood Pressure 135/59 06/16/2023 1:25 PM EST Pulse 59 06/16/2023 1:25 PM EST Temperature 36.5 ??C (97.7 ??F) 06/16/2023 1:25 PM ES T Respiratory Rate 18 06/16/2023 1:25 PM EST Oxygen Saturation 98% 06/16/2023 8:45 AM EST Inhaled Oxygen Concentration - - Weight 68.9 kg (152 lb) 06/16/2023 9:04 AM EST Height 170.2 cm (5' 7 ) 06/16/2023 9:04 AM EST Body Mass Index 23.81 06/16/2023 9:04 AM EST Plan of Treatment Health Maintenance Due Date Last Done Comments Depression Screening 1952 Preventative Health Evaluation 1958 Shingrix-Zoster Vaccine (1 of 2) 1990 Fall Risk Assessment 2005 DTap / Tdap / Td (1 - Tdap) 01/31/2014 01/30/2014, 0 05/10/2002 RSV Adult > 60+ Yrs or (1 - 1-dose 75+ series) 2015 COVID-19 Vaccine ( season) 2024 06/12/2020, 05/22/2020 Influenza Vaccine (#1) 2024 3, 03/23/2022, 12/28/2019, Additional history exists Pneumococcal Vaccine Completed 12/27/2020, 01/12/20 Hepatitis B Vaccines Aged Out No long er eligible based on patient's age to complete this topic RSV Ped < 20 months Aged Out No longe r eligible based on patient's age to complete this topic Care Teams Fire Sprinkler Apparatus Inspector Relationship Specialty Start Date End Date Eamon Hahn MD [address] [place] [place] [address] PCP - General Internal Medicine 04/01/21
[2024-07-03 11:17] LABS: Anion Gap 12 (12-20); Blood Urea Nitrogen 41 mg/dL (9-16); Carbon Dioxide 22 mmol/L (22-29); Chloride 110 mmol/L (96-108); Estimated Glomerular Filt Rate 27; Potassium 4.6 mmol/L (3.3-5.1); Sodium 139 mmol/L (135-145)
[2024-07-03 11:27] LABS: Vitamin D 25-OH Total 22.7 ng/mL (>30)
[2024-07-03 11:36] LABS: Parathyroid Hormone Intact 446.4 pg/mL (8.7-77.1)
== END 2024-07-03 09:13 | disposition home or self-care (01) ==
LOC: HO.10HDL 09:12
PROVIDERS: Visit Provider Internal Medicine Nephrology
DX: N18.4 Chronic kidney disease, stage 4 (severe) (principal)
CPT/HCPCS: 36415; 80051; 82306; 82565; 83970; 84520

== ENCOUNTER 2024-07-07 09:38 | Outpatient (AMB) | payer MEDICARE, OTHER, SELFPAY ==
--- NOTE | 2024-07-07 09:40 | HO.NEPHOV ---
Vital Signs 07/07/24 09:44 Height 5 ft 8 in Weight 157 lb 6 oz BMI 23.9 BP 140/60 H Blood Pressure Location Rt brachial Position Sitting Intake Visit Reasons: Jun follow up w/labs-[employer] Business Segment Leader Required: No Accompanied by: Self / Same As Patient Allergies No Known Allergies Allergy (Mild, Verified 07/07/24 09:43) NONE HPI Comments Details: Josh was seen in the office in follow-up of his chronic kidney disease and hypertension. He had undergone surgical intervention for his back. He is closely followed by his oncologist for follow up of his lymphoma and is due to have a follow up PET scan in a few months. He does not have any chest pain, shortness of breath, nausea, vomiting, diarrhea, hematuria or pedal edema. He does not take any excessive nonsteroidal anti-inflammatory medications. His ahusroxy-ma-ild checks his blood pressure at home and has been fairly well controlled. His serum creatinine has gone up to 2.3-2.4 PFS Medical History (Updated 07/07/24 @ 10:17 by Checo Greenberg MD) CKD (chronic kidney disease) stage 3, GFR 30-59 ml/min Marginal zone B-cell lymphoma Hx of small bowel obstruction Lumbar spondylitis Degenerative lumbar spinal stenosis Atrial fibrillation Leg edema Apical mural thrombus Arthritis Hiatal hernia Hypothyroidism HTN (hypertension) Rosacea Basal cell carcinoma Lymphadenopathy Surgical History History of spinal surgery (~05/2023) Hx of biopsy Hx of colonoscopy Hx of tonsillectomy Hx of total knee replacement Family History Father Heart disease Social History Household Members: Spouse Housing: House Are you a primary zoo caretaker to a significant other at home: Yes () Do you presently have visiting nurse or other home services: Yes (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 ) Alcohol intake: current Alcohol intake frequency: holidays/special occasions only Alcohol type: beer Patient Tobacco Use Status: Former Tobacco user Tobacco use type: Cigarette Cigarette Packs Per Day: 1 Advance Directives Date on File: 05/27/21 service: Yes Current occupational status: retired 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 Current occupational exposures/hazards: No Review of Systems Const All systems reviewed & are unremarkable except as noted in HPI and below Physical Exam Vital Signs: Last Vital Signs BP 148/60 H 07/07/24 09:44 BMI result Body Mass Index 23.9 Const General: comfortable and no acute distress Orientation/consciousness: patient oriented x3 HEENT Head: Yes normocephalic Mouth: Normal oral and palatal mucosa present Eyes EOM: EOMs intact bilaterally Neck Neck: Yes supple Resp Auscultation: clear to auscultation bilaterally Cardio Jugular venous distension: no JVD Rate: regular rate GI Palpation (GI): Soft to palpation Auscultation: normal bowel sounds General: Yes no CVA tenderness Back/Spine/Pelvis Back: no CVA tenderness Skin General skin exam: no rashes or lesions noted Neuro General: patient oriented x3 and moves all extremities Results Reviewed Nephrology Results: Sodium 139 mmol/L (135-145) 07/03/24 Potassium 4.6 mmol/L (3.3-5.1) 07/03/24 Chloride 110 mmol/L (96-108) H 07/03/24 Carbon Dioxide 22 mmol/L (22-29) 07/03/24 BUN 41 mg/dL (9-16) H 07/03/24 Creatinine 2.32 mg/dL (0.5-1.4) H 07/03/24 PTH Intact 446.4 pg/mL (8.7-77.1) H 07/03/24 Assessment & Plan Assessment & Plan (1) CKD (chronic kidney disease) stage 4, GFR 15-29 ml/min: Code(s): N18.4 - Chronic kidney disease, stage 4 (severe) Category: Medical (2) HTN (hypertension): Code(s): I10 - Essential (primary) hypertension Category: Medical Qualifiers: Hypertension type: primary hypertension Qualified Code(s): I10 - Essential (primary) hypertension (3) Secondary hyperparathyroidism (of renal origin): Code(s): N25.81 - Secondary hyperparathyroidism of renal origin Category: Medical Plan Josh has longstanding CKD and hypertension. His serum K has normalized. His blood pressure is well controlled on current medications. His serum creatinine is marginally up from his baseline. If it does not settle down, I plan to back off his ARB, increase his Nifedipine and initiate him on SGLT2 i as well. He does not take any excessive nonsteroidal anti-inflammatories. I started him on Vitamin D. He will need calcitriol soon. did not make any other medication changes today. F/U labs ordered; All his questions were answered. Orders: Orders Creatinine 2 Months N18.4 - Chronic kidney disease, stage 4 (severe) Blood Urea Nitrogen 2 Months N18.4 - Chronic kidney disease, stage 4 (severe) Electrolytes 2 Months N18.4 - Chronic kidney disease, stage 4 (severe) Medications: New cholecalciferol (vitamin D3) 50 mcg PO DAILY 30 caps 11RF Coding Level of Care Code Est Pt Level 4 (05906) Diagnoses CKD (chronic kidney disease) stage 4, GFR 15-29 ml/min N18.4 Primary hypertension I10 Hypertension type: primary hypertension Secondary hyperparathyroidism (of renal origin) N25.81
[2024-07-07 09:44] VITALS: BP 140/60; BMI 23.9
--- OUTSIDE RECORDS SUMMARY | 2024-07-07 10:23 | XMS_ITS | Clinical Summary ---
Author Organization [facility] Address [address] [place] [address] Phone Care Team Providers Care Gasoline Truck Operator Name Role Phone Eamon Hahn MD Primary Care Provider [phone] Allergies No known active allergies Medications levothyroxine [...] topic Insurance MEDICARE MEDICARE UNICARE Care Teams Gasoline Truck Operator Relationship Specialty Start Date End Date Eamon Hahn MD [address] [place] [address] PCP - General 05/20/20
--- OUTSIDE RECORDS SUMMARY | 2024-07-07 10:23 | XMS_ITS | Clinical Summary ---
Author Organization [facility] Address [address] [place] [address] Care Team Providers Care Wellness Specialist Name Role Phone Eamon Hahn MD Primary [...] age to complete this topic Care Teams Wellness Specialist Relationship Specialty Start Date End Date Eamon Hahn MD [address] [place] [facility] [place] [address] PCP - General Internal Medicine 04/01/21
== END 2024-07-07 10:20 | disposition home or self-care (01) ==
PROVIDERS: PCP Internal Medicine; Visit Provider Internal Medicine Nephrology
DX: I12.9 Hypertensive chronic kidney disease with stage 1 through stage 4 chronic kidney disease, or unspecified chronic kidney disease (principal); N18.4 Chronic kidney disease, stage 4 (severe); N25.81 Secondary hyperparathyroidism of renal origin
CPT/HCPCS: 99214

== ENCOUNTER → 2024-07-07 09:38 | Outpatient (BNVA) | payer MEDICARE, OTHER, SELFPAY | PROVIDERS: PCP Internal Medicine; Visit Provider Internal Medicine Nephrology | DX: I12.9 Hypertensive chronic kidney disease with stage 1 through stage 4 chronic kidney disease, or unspecified chronic kidney disease (principal); N18.4 Chronic kidney disease, stage 4 (severe); N25.81 Secondary hyperparathyroidism of renal origin | CPT/HCPCS: 99212 ==

== ENCOUNTER 2024-07-21 12:12 | Outpatient (AMB) | payer MEDICARE, OTHER, SELFPAY ==
--- NOTE | 2024-07-21 12:15 | A.OFFVIS_ITS ---
Vital Signs 07/21/24 12:16 Height 5 ft 8 in Weight 157 lb BMI 23.9 BP 193/86 H Blood Pressure Location Lt brachial Position Sitting Respiration 16 Pulse 61 Pulse Source Pulse Oximeter Pulse Oximetry (%) 98 Oxygen Delivery Method Room Air Intake Visit Reasons: Discuss X-Ray Results Business And Marketing Teacher Required: No Allergies No Known Allergies Allergy (Mild, Verified 07/21/24 12:18) NONE Medication List - Last Reconciled 07/21/24 by Lisa Moctezuma LPN apixaban (Eliquis) 2.5 mg PO BID atorvastatin 20 mg PO BEDTIME cholecalciferol (vitamin D3) 50 mcg PO DAILY levothyroxine 75 mcg PO DAILY@0630 losartan mg PO BID metoprolol tartrate 100 mg PO BID multivitamin 1 tab PO DAILY nifedipine ER 60 mg PO DAILY nifedipine ER 30 mg PO DAILY HPI HPI Discuss X-Ray Results: Details: History of Present Illness The patient is an 84-year-old male presenting with chronic lower back pain. Upon turning in bed post-spine surgery, the patient experienced an exacerbation of symptoms primarily impacting the lower back and right buttock. Initial assessments focused on sacroiliac dysfunction, leading to a diagnostic injection, which was ultimately ineffective. Despite additional trigger point injections, only negligible symptomatic improvement ensued. The patient maintains some mobility albeit with discomfort and limitations, albeit current treatments have not fully alleviated the underlying pain, suggesting a possible spinal origin. Pain Description - Onset: Postoperative exacerbation noted turning in bed. - Quality: Persistent discomfort in lower back and buttock area. - Location: Predominantly lower back with right buttock involvement. - Radiation: Not reported. - Exacerbating factors: Mobility and localized spinal manipulation. - Alleviating factors: None definitively effective; transient relief from specific physiotherapy techniques. - Impact on Activities: Interferes with walking and daily activities. Physical Exam Results - Tests and Diagnostics: Previous pelvic x-ray revealed no fractures despite a reported fall. Pain Management - Affect: Pain reportedly impacting walking and daily activities, though not excruciating. - Analgesia: Diagnostic SI joint injection attempted; prior trigger point injections largely ineffective. - Adverse Effects: None reported from current analgesic approaches. - Activities of Daily Living: Difficulty walking; limited gains with physiotherapy. - Aberrant Drug Related Behaviors: None reported or discussed. PENDING SALE TO [facility] Medical History (Updated 07/21/24 @ 13:22 by Jose Timmons MD) CKD (chronic kidney disease) stage 3, GFR 30-59 ml/min Marginal zone B-cell lymphoma Hx of small bowel obstruction Lumbar spondylitis Degenerative lumbar spinal stenosis Atrial fibrillation Leg edema Apical mural thrombus Arthritis Hiatal hernia Hypothyroidism HTN (hypertension) Rosacea Basal cell carcinoma Lymphadenopathy Surgical History History of spinal surgery (~05/2023) Hx of biopsy Hx of colonoscopy Hx of tonsillectomy Hx of total knee replacement Family History Father Heart disease Social History Household Members: Spouse Housing: House Are you a primary primary care nurse practitioner to a significant other at home: Yes () Do you presently have visiting nurse or other home services: 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 ) Alcohol intake: current Alcohol intake frequency: holidays/special occasions only Alcohol type: beer Patient Tobacco Use Status: Former Tobacco user Tobacco use type: Cigarette Cigarette Packs Per Day: 1 Advance Directives Date on File: 05/27/21 service: Yes 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 occupational status: 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 Current occupational exposures/hazards: No Physical Exam Vital Signs: Last Vital Signs Pulse 61 07/21/24 12:16 Resp 16 07/21/24 12:16 BP 193/86 H 07/21/24 12:16 Pulse Ox 98 07/21/24 12:16 Oxygen Delivery Method Room Air 07/21/24 12:16 BMI result Body Mass Index 23.9 Assessment & Plan Assessment & Plan (1) Chronic low back pain: Code(s): M54.50 - Low back pain, unspecified; G89.29 - Other chronic pain Category: Medical (2) Lumbar spondylitis: Code(s): M46.96 - Unspecified inflammatory spondylopathy, lumbar region Category: Medical (3) Lumbar postlaminectomy syndrome: Code(s): M96.1 - Postlaminectomy syndrome, not elsewhere classified Category: Medical Plan Plan The management strategy emphasizes reassessment of ongoing interventions and includes pursuing peripheral nerve stimulation as a novel, minimally invasive therapeutic approach. Given the ineffectiveness of previous measures and significant functional limitations presented, the patient has been consulted and agrees to proceed with the evaluation necessary for this treatment pathway. A temporary discontinuation of Eliquis is planned to mitigate procedural risks in the context of pain management goals, optimizing the patient's perceived quality of life. Will plan for temporary right L4 medial branch/possible L5 nerve root combined nerve stimulation for axial back and right buttock radicular pain. Patient was informed and verbally consented to the use of an ambient scribe for clinic note documentation during this visit. Discussion Notes I reviewed the potential use of a temporary peripheral nerve stimulator with the patient, explaining its application, a relatively high success rate, and minimal procedural demand. The risks, including infection or discomfort, were discussed, and benefits such as possible pain relief and improved functionality were highlighted. The patient understood and expressed interest in pursuit of this option, having reflected on the limitations of previous less invasive treatments. The necessity for anticoagulation cessation due to Eliquis was acknowledged, with a proposed temporary three-day suspension. Follow-ups for further evaluation and procedural planning will be initiated upon insurance clearance. Patient Instructions - Consider proceeding with peripheral nerve stimulation for chronic back pain relief. - Temporarily discontinue Eliquis three days prior to any planned procedures, as discussed. - Avoid spinal manipulations during any ongoing treatment trial. - Resume normal activities that are within comfort limits and do not exacerbate pain. Coding Level of Care Code Est Pt Level 4 (17897) Diagnoses Chronic low back pain M54.50; G89.29 Lumbar spondylitis M46.96 Lumbar postlaminectomy syndrome M96.1
[2024-07-21 12:16] VITALS: BP 193/86; PULSE 61; RESP 16; O2SAT 98; BMI 23.9
--- OUTSIDE RECORDS SUMMARY | 2024-07-21 13:52 | XMS_ITS | Clinical Summary ---
Author Organization [facility] Address [address] [place] [address] Care Team Providers Care Paintless Dent Repair Technician Name Role Phone Eamon Hahn MD Primary [...] age to complete this topic Care Teams Paintless Dent Repair Technician Relationship Specialty Start Date End Date Eamon Hahn MD [address] [place] [address] PCP - General Internal Medicine 04/01/21
--- OUTSIDE RECORDS SUMMARY | 2024-07-21 13:52 | XMS_ITS | Clinical Summary ---
Author Organization [facility] Address [address] [place] [address] Phone Care Team Providers Care Certified Vehicle Fire Investigator Name Role Phone Eamon Hahn MD Primary Care Provider [phone] Allergies No known active allergies Medications levothyroxine [...] topic Insurance MEDICARE MEDICARE UNICARE Care Teams Certified Vehicle Fire Investigator Relationship Specialty Start Date End Date Eamon Hahn MD [address] [place] [address] PCP - General 05/20/20
== END 2024-07-21 12:39 | disposition home or self-care (01) ==
LOC: HO.PMC 12:13
PROVIDERS: PCP Internal Medicine; Visit Provider Internal Medicine
DX: M54.50 Low back pain, unspecified (principal); G89.29 Other chronic pain; M46.96 Unspecified inflammatory spondylopathy, lumbar region; M96.1 Postlaminectomy syndrome, not elsewhere classified
CPT/HCPCS: 99214

== ENCOUNTER → 2024-07-21 12:12 | Outpatient (BNVA) | payer MEDICARE, OTHER, SELFPAY | PROVIDERS: PCP Internal Medicine; Visit Provider Internal Medicine | DX: M54.50 Low back pain, unspecified (principal); M46.96 Unspecified inflammatory spondylopathy, lumbar region; M96.1 Postlaminectomy syndrome, not elsewhere classified; G89.29 Other chronic pain | CPT/HCPCS: 99212 ==

== ENCOUNTER 2024-09-07 08:17 | Outpatient (REF) | payer MEDICARE, OTHER, SELFPAY ==
--- OUTSIDE RECORDS SUMMARY | 2024-09-07 08:27 | XMS_ITS | Clinical Summary ---
Author Organization [facility] Address [address] [place] [address] Phone Care Team Providers Care Sheep Boner Name Role Phone Eamon Hahn MD Primary Care Provider [phone] Allergies No known active allergies Medications levothyroxine [...] knee 03/19/2017 03/27/2021 Pure hypercholesterolemia 03/19/2017 Immunizations Immunization Administration Dates Next Due Influenza Split High [...] Due Date Last Done Comments Influenza Vaccine (Season Ended) 2025 01/07/2023, 03/23/2022, 12/28/2019, Additional history exists Pneumococcal Vaccine: 50+ Years Completed 12/27/2020, 01/12/2020 Pneumococcal Vaccine: Peds (0 to 5 Years) and At-Risk Patients (6 to 49 Years) Discontinued 12/27/2020, 01/12/2020 Hepatitis B Vaccine Aged Out No longe r eligible based on patient's age to complete this topic Insurance Medicare Medicare Unicare Care Teams Sheep Boner Relationship Specialty Start Date End Date Eamon Hahn MD [address] [place] [address] PCP - General 05/20/20
[2024-09-07 10:21] LABS: Anion Gap 15 (12-20); Blood Urea Nitrogen 33 mg/dL (9-16); Carbon Dioxide 21 mmol/L (22-29); Chloride 109 mmol/L (96-108); Estimated Glomerular Filt Rate 25; Potassium 4.6 mmol/L (3.3-5.1); Sodium 140 mmol/L (135-145)
== END 2024-09-07 08:18 | disposition home or self-care (01) ==
LOC: HO.10HDL 08:17
PROVIDERS: Visit Provider Internal Medicine Nephrology
DX: N18.4 Chronic kidney disease, stage 4 (severe) (principal)
CPT/HCPCS: 36415; 80051; 82565; 84520

== ENCOUNTER 2024-09-08 09:54 | Outpatient (AMB) | payer MEDICARE, OTHER, SELFPAY ==
--- NOTE | 2024-09-08 10:01 | HO.NEPHOV ---
Vital Signs 09/08/24 10:02 Height 5 ft 8 in Weight 153 lb 4 oz BMI 23.3 BP 120/60 Blood Pressure Location Rt brachial Position Sitting Pulse 71 Pulse Source Pulse Oximeter Pulse Oximetry (%) 98 Oxygen Delivery Method Room Air Intake Visit Reasons: 2 MO FU-Conf Area Safety Manager Required: No Accompanied by: Daughter Allergies No Known Allergies Allergy (Mild, Verified 09/08/24 10:04) NONE Do you need a note to return to daycare/school/sports/work: No HPI Comments Details: Josh was seen in the office in follow-up of his chronic kidney disease and hypertension. He had undergone surgical intervention for his back. He is closely followed by his oncologist for follow up of his lymphoma and is due to have a follow up PET scan in a few months. He does not have any chest pain, shortness of breath, nausea, vomiting, diarrhea, hematuria or pedal edema. He does not take any excessive nonsteroidal anti-inflammatory medications. His [id number] checks his blood pressure at home and has been fairly well controlled. His serum creatinine has gone up to 2.3-2.4 but stable [facility] Medical History CKD (chronic kidney disease) stage 3, GFR 30-59 ml/min Marginal zone B-cell lymphoma Hx of small bowel obstruction Lumbar spondylitis Degenerative lumbar spinal stenosis Atrial fibrillation Leg edema Apical mural thrombus Arthritis Hiatal hernia Hypothyroidism HTN (hypertension) Rosacea Basal cell carcinoma Lymphadenopathy Surgical History History of spinal surgery (~05/2023) Hx of biopsy Hx of colonoscopy Hx of tonsillectomy Hx of total knee replacement Family History Father Heart disease Social History Household Members: Spouse Housing: House Are you a primary out of school hours care worker to a significant other at home: Yes () Do you presently have 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 ) Alcohol intake: current Alcohol intake frequency: holidays/special occasions only Alcohol type: beer Patient Tobacco Use Status: Former Tobacco user Tobacco use type: Cigarette Cigarette Packs Per Day: 1 Advance Directives Date on File: 05/27/21 service: Yes Current occupational status: retired 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 Current occupational exposures/hazards: No Review of Systems Const All systems reviewed & are unremarkable except as noted in HPI and below Physical Exam Vital Signs: BMI result Body Mass Index 23.3 Const General: comfortable and no acute distress Orientation/consciousness: patient oriented x3 HEENT Head: Yes normocephalic Mouth: Normal oral and palatal mucosa present Eyes EOM: EOMs intact bilaterally Neck Neck: Yes supple Resp Auscultation: clear to auscultation bilaterally Cardio Jugular venous distension: no JVD Rate: regular rate GI Palpation (GI): Soft to palpation Auscultation: normal bowel sounds General: Yes no CVA tenderness Back/Spine/Pelvis Back: no CVA tenderness Skin General skin exam: no rashes or lesions noted Neuro General: patient oriented x3 and moves all extremities Extrem General: Yes no pedal edema Results Reviewed Nephrology Results: Sodium 140 mmol/L (135-145) 09/07/24 Potassium 4.6 mmol/L (3.3-5.1) 09/07/24 Chloride 109 mmol/L (96-108) H 09/07/24 Carbon Dioxide 21 mmol/L (22-29) L 09/07/24 BUN 33 mg/dL (9-16) H 09/07/24 Creatinine 2.49 mg/dL (0.5-1.4) H 09/07/24 Calcium 9.1 mg/dL (8.4-10.2) 04/14/24 PTH Intact 446.4 pg/mL (8.7-77.1) H 07/03/24 Assessment & Plan Assessment & Plan (1) Secondary hyperparathyroidism (of renal origin): Code(s): N25.81 - Secondary hyperparathyroidism of renal origin Category: Medical (2) CKD (chronic kidney disease) stage 4, GFR 15-29 ml/min: Code(s): N18.4 - Chronic kidney disease, stage 4 (severe) Category: Medical (3) HTN (hypertension): Code(s): I10 - Essential (primary) hypertension Category: Medical Qualifiers: Hypertension type: primary hypertension Qualified Code(s): I10 - Essential (primary) hypertension Plan Josh has longstanding CKD and hypertension. His serum K has normalized. His blood pressure is well controlled on current medications. His serum creatinine is marginally up from his baseline but stable. If it does not settle down, I plan to back off his ARB, increase his Nifedipine and initiate him on SGLT2 i as well. I started him on calcitriol 0.25mcg three times a week. He does not take any excessive nonsteroidal anti-inflammatories. I started him on Vitamin D. He will need calcitriol soon. did not make any other medication changes today. F/U labs ordered; All his questions were answered. Orders: Orders Electrolytes 3 Months I10 - Essential (primary) hypertension, N18.4 - Chronic kidney disease, stage 4 (severe), N25.81 - Secondary hyperparathyroidism of renal origin Calcium 3 Months I10 - Essential (primary) hypertension, N18.4 - Chronic kidney disease, stage 4 (severe), N25.81 - Secondary hyperparathyroidism of renal origin Creatinine 3 Months I10 - Essential (primary) hypertension, N18.4 - Chronic kidney disease, stage 4 (severe), N25.81 - Secondary hyperparathyroidism of renal origin Blood Urea Nitrogen 3 Months I10 - Essential (primary) hypertension, N18.4 - Chronic kidney disease, stage 4 (severe), N25.81 - Secondary hyperparathyroidism of renal origin Medications: New calcitriol 0.25 mcg PO 3XW 14 caps 4RF Coding Level of Care Code Est Pt Level 4 (50974) Diagnoses Secondary hyperparathyroidism (of renal origin) N25.81 CKD (chronic kidney disease) stage 4, GFR 15-29 ml/min N18.4 Primary hypertension I10 Hypertension type: primary hypertension
[2024-09-08 10:02] VITALS: BP 120/60; PULSE 71; O2SAT 98; BMI 23.3
--- OUTSIDE RECORDS SUMMARY | 2024-09-08 10:45 | XMS_ITS | Clinical Summary ---
Author Organization [facility] Address [address] [place] [address] Phone Care Team Providers Care Central Melt Specialist Name Role Phone Eamon Hahn MD Primary Care Provider [phone] Allergies No known active allergies Medications levothyroxine [...] topic Insurance Medicare Medicare Unicare Care Teams Central Melt Specialist Relationship Specialty Start Date End Date Eamon Hahn MD [address] [place] [address] PCP - General 05/20/20
--- OUTSIDE RECORDS SUMMARY | 2024-09-08 10:45 | XMS_ITS | Clinical Summary ---
Author Organization [facility] Address [address] [place] [address] Care Team Providers Care Moss Picker Name Role Phone Eamon Hahn MD Primary Care Provider [phone] Medications Medication Sig Dispensed Refills Start Date [...] age to complete this topic Care Teams Moss Picker Relationship Specialty Start Date End Date Eamon Hahn MD [address] [place] [address] PCP - General Internal Medicine 04/01/21
== END 2024-09-08 10:32 | disposition home or self-care (01) ==
LOC: HO.HKA 09:55
PROVIDERS: PCP Internal Medicine; Visit Provider Internal Medicine Nephrology
DX: I12.9 Hypertensive chronic kidney disease with stage 1 through stage 4 chronic kidney disease, or unspecified chronic kidney disease (principal); N18.4 Chronic kidney disease, stage 4 (severe); N25.81 Secondary hyperparathyroidism of renal origin
CPT/HCPCS: 99214

== ENCOUNTER → 2024-09-08 09:54 | Outpatient (BNVA) | payer MEDICARE, OTHER, SELFPAY | PROVIDERS: PCP Internal Medicine; Visit Provider Internal Medicine Nephrology | DX: I12.9 Hypertensive chronic kidney disease with stage 1 through stage 4 chronic kidney disease, or unspecified chronic kidney disease (principal); N18.4 Chronic kidney disease, stage 4 (severe); N25.81 Secondary hyperparathyroidism of renal origin | CPT/HCPCS: 99212 ==

== ENCOUNTER 2025-01-18 08:58 | Outpatient (REF) | payer MEDICARE, OTHER, SELFPAY ==
--- OUTSIDE RECORDS SUMMARY | 2025-01-18 10:11 | XMS_ITS | Encounter Summary ---
Author Organization [facility] Address [address] [facility] [address] [place] [address] Phone Care Team Providers Care Gastroenterology Manager Name Role Phone Eamon Hahn MD Primary Care Provider [phone] Diamond Vick MD Unavailable [phone] Eamon Hahn MD Unavailable [phone] Reason for Visit * Reason Onset Date Comments Herpes Zoster 09/30/2022 Encounter Details Date Type Department Care Team (Late st Contact Info) Description 09/30/2022 Nurse Triage [facility] Internal Medicine [address], [place] [phone] Eamon Hahn MD [address] [place] [address] [email or web address] Herpes Zoster Social History Tobacco Use Types Packs/Day Years Used Date Smoking Tobacco: Former Cigarettes 0.8 14 0 05/10/1956 - 05/10/1970 Smokeless Tobacco: Never Alcohol Use Standard Drinks/Week Comments Yes 7 (1 standard drink = 0.6 oz pur e alcohol) 1 drink day on average, beer Education Answer Date Recorded Are you interested in more education? Not on yesi e 09/04/2022 Are you concerned about learning? Not on file 09/04/2022 No 09/04/2022 No 09/04/2022 Digital Access Answer Date Recorded No 09/30/2022 No 09/30/2022 Reliable internet access at home? Not on file 09/30/2022 Device with a working camera? Not on file Sex and Gender Information Value Date Recorded Sex Assigned at Not on file Legal Sex Male 10:12 PM EDT Gender Identity Not on file Sexual Orientation Not on file documented as of this encounter Progress Notes * Hamilton Andre - 09/30/2022 3:25 PM EDT Patient scheduled 09/30 * Laxmi Carrillo NP - 09/30/2022 2:08 PM EDT Virtual at end of day * Zoë Daigle RN - 09/30/2022 2:00 PM EDT Josh reports a rash on his right shoulder. Red, itching and burning. Started last night. States it feels just like when had shingles the last time. Asking for an antiviral Rx Nurse Triage Encounter Note Reason for Triage Josh Abdul contacted office for Herpes Zoster Call Disposition Home Care Patient/caregiver understands and will follow disposition: No, Wishes To Speak With Pcp Patient/caregiver understands and will follow care advice: No, Wishes To Speak To Pcp Disposition Comments: Protocols used: Shingles (Zoster)-Adult-[place] Initial Symptom Screening and Assessment Care Advice Given Care Advice Patient/Caregiver understands and will follow care advice?: No, wishes to speak to PCP HOME CARE: * You should be able to treat this at home. REASSURANCE AND EDUCATION - SHINGLES: * Shingles (herpes zoster) is caused by the reactivation of the chicken pox (varicella zoster) virus. * The main symptoms are painful blisters in one area of the body. * Vaccination to prevent shingles is recommended in all people 50 years and older. * Shingles occurs in people who have had chickenpox in the past. After the chickenpox is gone, the chickenpox virus remains hidden in nerve roots. Years or even decades later the virus can re-emerge as herpes zoster, also known as shingles. * Here is some more care advice and health information that should help. SHINGLES - SYMPTOMS: * PAIN usually starts 3 to 5 days before the rash. The pain is in the area of the rash. * The typical RASH appears as multiple small blisters grouped together in one area of the body i.e., dermatomal distribution or 'band' or 'stripe'). The rash is present on only one side of the body (unilateral). The rash progresses over 2 to 3 weeks through the following stages: 1) small red bumps,2) cloudy blisters, and 3) dry brown crusts. * The rash may feel slightly ITCHY. * Other symptoms that are present initially include fever, headache, malaise. SHINGLES - TREATMENT: * There are ANTIVIRAL MEDICINES that can help reduce the duration and severity of shingles. To workwell, the medicine should be started within 72 hours of onset of the shingles rash. * There are three antiviral drugs that have been proven to be effective: acyclovir (Zovirax), valacyclovir (Valtrex), and famciclovir (Famvir). SHINGLES - CONTAGIOUSNESS: * The shingles sores contain the chickenpox virus. So while others cannot get shingles from you, itis possible that they can get chickenpox (if they never had it before). * Avoid contact with women. * Avoid contact with anyone who has a weakened immune system (immunocompromised) (e.g., HIV positive, cancer chemotherapy, chronic steroid treatment, splenectomy, organ transplant). * Avoid contact with anyone who has never had the chickenpox disease or vaccine. EXPECTED COURSE: * For most people the pain and rash last 3 to 5 weeks. * In most cases the rash does not cause scars. * Unfortunately, 1 in 5 people will still have long-lasting pain (without rash) from postherpetic neuralgia (nerve pain) at 6 months. DON'T SCRATCH: * Try not to scratch. * Scratching makes the itching worse (the 'Itch-Scratch' cycle). * Cut your fingernails short. Wash hands frequently with an antibacterial soap. This will help prevent a bacterial skin infection. REDUCING THE ITCH - CALAMINE LOTION: * Apply calamine lotion to the spots that itch the most. * Or, massage them with an ice cube for 10 minutes. REDUCING THE ITCH - OATMEAL (AVEENO) BATH: * Sprinkle contents of one packet of Aveeno under running faucet with comfortably warm water. * Bathe for 15 to 20 minutes, 1 to 2 times daily. * Pat dry using towel - do not rub. * Caution: This can make the tub slippery. ANTIHISTAMINE MEDICINES FOR SEVERE ITCHING: * For severe itching, take either cetirizine or loratadine. * They are dvia-dkg-mufgxso (OTC) antihistamine medicines. You can buy them at the drugstore. * CETIRIZINE (REACTINE, ZYRTEC): The adult dose is 10 mg and you take it once a day. Cetirizine is available in the [place] as Zyrtec and in [place] as Reactine. * LORATADINE (ALAVERT, CLARITIN): The adult dose is 10 mg and you take it once a day. Loratadine isavailable in the [place] as Alavert and Claritin; it is available in [place] as Claritin. ANTIHISTAMINE MEDICINES - EXTRA NOTES AND WARNINGS: * Antihistamine medicines can be used to treat allergic reactions, allergies, hay fever, hives, anditching. * Diphenhydramine (Benadryl) is a FIRST GENERATION ANTIHISTAMINE medicine. It causes more sleepiness than the newer second generation antihistamine medicines. The adult dosage of Benadryl is 25 to 50mg by mouth and you can take it up to 4 times a day. * SECOND GENERATION ANTIHISTAMINES such as cetirizine and loratadine have fewer side effects than first generation antihistamines. Loratadine is one of the least sedating antihistamines. * CAUTION: Antihistamine medicines can make you sleepy. Do not drink alcohol, drive, or operate dangerous machinery while taking this drug. It can also worsen dry eyes by decreasing natural tearing. * Before taking any medicine, read all the instructions on the package. PAIN MEDICINES: * For pain relief, you can take either acetaminophen, ibuprofen, or naproxen. * They are tkqf-rsn-jidifuw (OTC) pain drugs. You can buy them at the drugstore. * ACETAMINOPHEN - REGULAR STRENGTH TYLENOL: Take 650 mg (two 325 mg pills) by mouth every 4 to 6 hours as needed. Each Regular Strength Tylenol pill has 325 mg of acetaminophen. The most you should take each day is 3,250 mg (10 pills a day). * ACETAMINOPHEN - EXTRA STRENGTH TYLENOL: Take 1,000 mg (two 500 mg pills) every 8 hours as needed.Each Extra Strength Tylenol pill has 500 mg of acetaminophen. The most you should take each day is 3,000 mg (6 pills a day). * IBUPROFEN (E.G., MOTRIN, ADVIL): Take 400 mg (two 200 mg pills) by mouth every 6 hours. The most you should take each day is 1,200 mg (six 200 mg pills), unless your doctor has told you to take more. * NAPROXEN (E.G., ALEVE): Take 220 mg (one 220 mg pill) by mouth every 8 to 12 hours as needed. Youmay take 440 mg (two 220 mg pills) for your first dose. The most you should take each day is 660 mg(three 220 mg pills a day), unless your doctor has told you to take more. PAIN MEDICINES - EXTRA NOTES AND WARNINGS: * Use the lowest amount of medicine that makes your pain better. * Acetaminophen is thought to be safer than ibuprofen or naproxen in people over 65 years old. Acetaminophen is in many OTC and prescription medicines. It might be in more than one medicine that you are taking. You need to be careful and not take an overdose. An acetaminophen overdose can hurt the liver. * [employer], the company that makes Tylenol, has different dosage instructions for Tylenol in [place] and the [place]. In [place], the maximum recommended dose per day is 4,000 mg or twelve Regular-Strength (325 mg) pills. In the [place], the maximum dose per day is ten Regular-Strength (325mg) pills. * [employer], the company that makes Aleve, has different dosage instructions for Aleve in [place] and the [place]. In [place], the maximum recommended dose per day is 440 mg (2 pills or caplets). In the [place], the maximum dose per day is 660 mg (3 pills or caplets). * CAUTION: Do not take acetaminophen if you have liver disease. * CAUTION: Do not take ibuprofen or naproxen if you have stomach problems, kidney disease, are , or have been told by your doctor to avoid this type of anti-inflammatory drug. Do not take ibuprofen or naproxen for more than 7 days without consulting your doctor. * Before taking any medicine, read all the instructions on the package. CALL BACK IF: * Spots appear elsewhere on your body. * Severe headache occurs * Eye pain or blurred vision occurs * Fever over 100.4 F (38.0 C) * You become worse Patient will call back with additional questions or if symptoms change or worsen Zoë Daigle RN Reason for Disposition and Assessment Reason for Disposition ??? Shingles, questions about Protocols used: SHINGLES (ZOSTER)-ADULT-[place] * Lana Mccallum - 09/30/2022 1:49 PM EDT Pt lvm for pt asking for medication for for shingles documented in this encounter Plan of Treatment Upcoming Encounters Date Type Department Care Team (Late st Contact Info) Description 07/20/2025 11:00 AM EDT Office Visit [facility] Internal Medicine [address], [place] [phone] Eamon Hahn MD [address] [place], [place] [phone] [email or web address] 01/25/2026 10:40 AM EDT Office Visit [facility] Internal Medicine [address], [place] [phone] Yesenia Melendez PA-C [address] [place], [place] [phone] [email or web address] documented as of this encounter Visit Diagnoses Not on filedocumented in this encounter Additional Health Concerns Assessment Noted Time PHQ-2 Depression Total Score: 0 10/01/19 23 3:57 PM EDT documented as of this encounter Care Teams Gastroenterology Manager Relationship Specialty Start Date End Date Eamon Hahn MD [address] [place] [address] [email or web address] PCP - General Internal Medicine 03/19/17 Diamond Vick MD [address] [place] [phone] [email or web address] 01/12/20 Eamon Hahn MD [address] [place] [address] [email or web address] Insurance Assigned Provider 08/14/23 documented as of this encounter Additional Source Comments The information contained in this document represents components of the legal health record. It is not the complete legal health record.[facility]
--- OUTSIDE RECORDS SUMMARY | 2025-01-18 10:11 | XMS_ITS | Clinical Summary ---
Author Organization [facility] Address [address] [facility] [address] [place] [phone] Phone Care Team Providers Care Ground Hand Name Role Phone Eamon Hahn MD Primary Care Provider [phone] Diamond Vick MD Unavailable [phone] Eamon Hahn MD Unavailable [phone] Allergies No known active allergies Medications ketoconazole 2 % cream PRN 5 05/02/20 17 Active metroNIDAZOLE (METROCREAM) 0.75 % cream PRN 5 05/04/20 17 Active therapeutic multivitamin tablet Take 1 tablet by mouth daily. Active Bifidobacterium infantis (ALIGN ORAL) Take 1 capsule by mouth daily. Active atorvastatin (LIPITOR) 20 MG tablet Take 20 mg by mouth nightly at bedtime. 05/27/19 23 Active cyanocobalamin, vitamin B-12, (VITAMIN B-12 ORAL)Indication s:recommended by Dr. Vick Take 1,000 mcg by mouth 3 (three) times a week. Indications: recommended by Dr. Vick Active melatonin 3 mg Tab Take 5 mg by mouth as needed. Active apixaban (ELIQUIS) 2.5 mgIndications:P aroxysmal atrial fibrillation,Ot her pulmonary embolism without acute cor pulmonale, unspecified chronicity Take 1 tablet (2.5 mg total) by mouth 2 (two) times a day. 180 tablet 3 07/12/19 24 Active levothyroxine (SYNTHROID, LEVOTHROID) 75 MCG tablet TAKE 1 TABLET BY MOUTH EVERY MORNING (NEW DOSE) 90 tablet 3 05/09/20 24 Active losartan (COZAAR) 25 MG tabletIndicatio ns:Benign essential hypertension Take 1 tablet (25 mg total) by mouth 2 (two) times a day. 180 tablet 3 06/23/19 25 Active NIFEdipine (ADALAT CC) 30 MG 24 hr tabletIndicatio ns:Benign essential hypertension 2 tablets in the morning and 1 tablet at night. 270 tablet 3 06/23/19 25 Active metoprolol tartrate (LOPRESSOR) 50 MG tabletIndicatio ns:Essential hypertension TAKE 1 TABLET BY MOUTH TWICE A DAY 180 tablet 3 10/10/19 25 Active cholecalciferol (VITAMIN D3) 2,000 unit capsule Take 1 capsule by mouth every morning. 11/30/19 25 Active calcitriol (ROCALTROL) 0.25 MCG capsule Take 0.25 mcg by mouth 3 (three) times a week. 12/17/19 25 Active ascorbic acid, vitamin C, (VITAMIN C) 500 MG tablet Take 500 mg by mouth 3 (three) times a week. 025 Discontinued methocarbamoL (ROBAXIN) 750 MG tablet Take 750 mg by mouth 4 (four) times a day as needed. 025 Discontinued Active Problems Problem Noted Date Diagnosed Date Lymphoma 02/10/2024 Overview (02/10/2024): Markus w [facility] oncology Dr. Diamond Vick- last OV 01/14/24 f/u 4m Normocytic normochromic anemia 12/29/2023 Overview (12/29/2023): Lab done [facility] 11/19/23 H/H 11.3/ and 33.5 Iron studies normal- see media scan dated 12/13/23 Atrial fibrillation 12/19/2020 Patrick's esophagus 03/19/2017 Essential hypertension 03/19/2017 Gastroesophageal reflux disease 03/19/2017 Hyponatremia 03/19/2017 Pure hypercholesterolemia 03/19/2017 Primary osteoarthritis of left knee 03/19/2017 Encounters Date Type Department Care Team Description 01/05/2025 1:00 PM EDT Office Visit [facility] Internal Medicine [address] [facility] [place] [address] Eamon Hahn MD Routine general medical examination at a health care facility (Primary Dx); Essential hypertension; Lymphoma, unspecified body region, unspecified lymphoma type; Chronic right-sided low back pain without sciatica; Pure hypercholesterolemia ; Patrick's esophagus without dysplasia; Impaired fasting blood sugar 12/04/2024 Telephone [facility] Internal Medicine [address] [place], [place] [address] Eamon Hahn MD Review of Orders from Last 3 Months Immunizations Immunization Administration Dates Next Due COVID-19 (Pre-03/01) Pfizer Vaccine, mRNA, PF ,05/22/2020 Influenza High-Dose Quadrivalent Preservative Fr ee IM 12/28/2019 Influenza High-Dose Trivalent Preservative Free IM 06/14/2024,03/06/2019 Influenza Quadrivalent Adjuvanted Preservative F ree IM 01/07/2023,03/23/2022 Pneumococcal conjugate PCV13 01/12/2020 Pneumococcal polysaccharide PPSV23 12/27/2020 RSV Vaccine (monovalent, adjuvanted) 03/28/2024 Td (adult) 5 Lf Tetanus Toxoid, PF, Adsorbed Td, unspecified formulation 05/10/2002 Zoster live 03/22/2015 Family History Medical History Relation Comments Cancer Daughter CV disease Father Relation Status Comments Daughter at age 51 t o cancer Father (Age 49) mi sudden Mother (Age 89) Social History Tobacco Use Types Packs/Day Years Used Date Smoking Tobacco: Former Cigarettes 0.8 14 0 05/10/1956 - 05/10/1970 Smokeless Tobacco: Never Tobacco Cessation:Counseling Given: Not Answered Alcohol Use Standard Drinks/Week Comments Yes 8 (1 standard drink = 0.6 oz pur e alcohol) Education Answer Date Recorded Are you interested in more education? Not on yesi e 09/04/2022 Are you concerned about learning? Not on file 09/04/2022 No 09/04/2022 No 09/04/2022 Digital Access Answer Date Recorded No 09/30/2022 No 09/30/2022 Reliable internet access at home? Not on file 09/30/2022 Device with a working camera? Not on file Intimate Partner Violence Answer Date R ecorded Denied Basic Needs Not on file 01/04/2025 In the past 12 months have y ou been in a relationship with a person who hurts, threatens, or tries to control you? No 01/04/2025 Worried food would run out Not on file 01/04 In the past 12 months have y ou been in a relationship with a person who hurts, threatens, or tries to control you? No 01/04/2025 Sex and Gender Information Value Date Recorded Sex Assigned at Not on file Legal Sex Male 10:12 PM EDT Gender Identity Not on file Sexual Orientation Not on file Last Filed Vital Signs Vital Sign Reading Time Taken Comments Blood Pressure 120/56 01/05/2025 1:28 PM EDT Pulse 56 01/05/2025 12:50 PM EDT Temperature 36.1 C (97 F) 01/05/2025 12:50 PM EDT Respiratory Rate 16 01/05/2025 12:50 PM EDT Oxygen Saturation 99% 01/05/2025 12:50 PM EDT Inhaled Oxygen Concentration - - Weight 68.7 kg (151 lb 6.4 oz) 01/05/2025 12:50 PM EDT Height 168.3 cm (5' 6.26 ) 01/05/2025 12:50 PM E DT Body Mass Index 24.25 01/05/2025 12:50 PM EDT Plan of Treatment Upcoming Encounters Date Type Department Care Team (Late st Contact Info) Description 07/20/2025 11:00 AM EDT Office Visit [facility] Internal Medicine [address] [place] [address] Eamon Hahn MD [address] [place], [place] 01/25/2026 10:40 AM EDT Office Visit [facility] Internal Medicine [address] [place] [address] Yesenia Melendez PA-C [address] [place], [place] Health Maintenance Due Date Last Done Comments ZOSTER VACCINES (1 of 2) 05/17/2015 03/22/2015 Adult Td,Tdap Booster 01/31/2024 01/30/2014, 003 INFLUENZA VACCINE (#1) 2024 , 01/07/2023, 01/07/2023, Additional history exists COVID-19 VACCINE ( season) 2025 03/28/2024, 02/16/2023, 05/18/2022, Additional history exists POTASSIUM LEVEL 06/16/2025 06/16/2024, 11/07, 08/06/2023, Additional history exists BLOOD PRESSURE 07/07/2025 01/05/2025 DEPRESSION SCREENING 01/04/2026 01/04/2025 CREATININE LEVEL 01/05/2026 01/05/2025, 11/2024, 03/23/2024, Additional history exists TSH LEVEL 01/05/2026 01/05/2025, 02/0 11/2024, 05/27/2023, Additional history exists PNEUMOCOCCAL VACCINES (50+ years) Completed 12/27/2020, 01/12/2020 RSV VACCINE Completed 03/28/2024 HEPATITIS A VACCINES Aged Out No long er eligible based on patient's age to complete this topic HIB VACCINES Aged Out No longer eligi ble based on patient's age to complete this topic MENINGOCOCCAL VACCINES (ACWY) Aged Out No longer eligible based on patient's age to complete this topic MENINGOCOCCAL VACCINES (B) Aged Out N o longer eligible based on patient's age to complete this topic Medical Devices Not on file Procedures Procedure Name Priority Date/Time Associated Diagnosis Comments TSH Routine 06/16/2024 11:40 AM EST Pure hypercholesterolemia Essential hypertension COMPREHENSIVE METABOLIC PANEL Routine 06/16/2024 11:40 AM EST Pure hypercholesterolemia Essential hypertension from Last 3 Months or Most Recently Relevant to Health Maintenance Results * (ABNORMAL) Comprehensive metabolic panel (06/16/2024 11:40 AM EST) SODIUM 136 133 - 146 mmol/L [facility] POTASSIUM 4.6 3.3 - 5.1 mmol/L [facility] CHLORIDE 103 96 - 108 mmol/L [facility] CO2 22 21 - 35 mmol/L [facility] BUN 34(H) 6 - 19 mg/dL [facility] CREATININE 2.40(H) 0.5 - 1.5 mg/dL [facility] GLUCOSE 104(H) 70 - 99 mg/dL [facility] ALBUMIN 4.0 3.9 - 4.8 g/dL [facility] TOTAL PROTEIN 7.2 6.5 - 8.0 g/dL [facility] CALCIUM 9.2 8.4 - 10.3 mg/dL [facility] ALKALINE PHOSPHATASE 105 39 - 117 U/L [facility] TOTAL BILIRUBIN 0.4 0.0 - 1.2 mg/dL [facility] AST 28 0 - 37 U/L [facility] ALT 22 0 - 40 U/L [facility] GLOBULIN 3.2 1 - 4.8 g/dL [facility] EGFR 26(L) >59 mL/min/1.7 3m2 [facility] Comment:Estimated glomerular filtration rate calculated using the CKD-EPI refit equation. ANION GAP 16 10 - 20 mmol/L [facility] Blood 06/16/2024 11:4 0 AM EST 06/16/2024 11:45 AM EST us Eamon Hahn MD LAB BLOOD ORDERABLES Final Re sult [address] [address] * TSH (06/16/2024 11:40 AM EST) TSH 1.75 0.27 - 4.20 uIU/mL [facility] Blood 06/16/2024 11:4 0 AM EST 06/16/2024 11:45 AM EST Eamon Hahn MD LAB BLOOD ORDERABLES Final Re sult [address] [phone] from Last 3 Months or Most Recently Relevant to Health Maintenance Insurance MEDICARE PART A & B [facility] MEDICARE SUPPLEMENT MEDICARE PART A & B [facility] MEDICARE SUPPLEMENT MEDICARE PART A & B [facility] MEDICARE SUPPLEMENT MEDICARE PART A & B [employer] MEDICARE SUPPLEMENT MEDICARE PART A & B [employer] MEDICARE SUPPLEMENT MEDICARE PART A & B [facility] MEDICARE SUPPLEMENT MEDICARE PART A & B [employer] MEDICARE SUPPLEMENT MEDICARE PART A & B [employer] MEDICARE SUPPLEMENT MEDICARE PART A & B [facility] MEDICARE SUPPLEMENT Advance Directives For more information, please contact: [phone] (9AM - 5PM [place]/[facility], Wednesday-Wednesday) Documents on File Type Date Recorded Patient Print Binding And Finishing Worker Expl anation MOLST 07/08/2023 [facility] Healthcare Proxy 03/08/2018 Health Care Proxy Care Teams Ground Hand Relationship Specialty Start Date End Date Eamon Hahn MD [address] [place] [address] [email or web address] PCP - General Internal Medicine 03/19/17 Diamond Vick MD [address] [place] [phone] [email or web address] 01/12/20 Eamon Hahn MD [address] [place] [address] [email or web address] Insurance Assigned Provider 08/14/23 Additional Source Comments The information contained in this document represents components of the legal health record. It is not the complete legal health record.[facility]
--- OUTSIDE RECORDS SUMMARY | 2025-01-18 10:11 | XMS_ITS | Clinical Summary ---
Author Organization [facility] Address [address] [place] [address] Care Team Providers Care Rotary Driller Name Role Phone Unknown, Provider MD Primary Care Provider Unava ilable Social History Tobacco Use Types Packs/Day Years Used Date Smoking Tobacco: Never Assessed Sex and Gender Information Value Date Recorded Sex Assigned at Not on file Legal Sex Male 18:43 EST Gender Identity Not on file Sexual Orientation Not on file Plan of Treatment Health Maintenance Due Date Last Done Comments Fall Risk Screening 2005 RSV Immunization ( o r 60+ Years) (1 - 1-dose 75+ series) 2015 COVID-19 Vaccine ( season) 2024 Care Teams Rotary Driller Relationship Specialty Start Date End Date Unknown, Provider, PCP - General 03/22/15
--- OUTSIDE RECORDS SUMMARY | 2025-01-18 10:11 | XMS_ITS | Clinical Summary ---
Author Organization [facility] Address [address] [place] [address] Phone Care Team Providers Care Linseed Oil Refiner Name Role Phone Eamon Hahn MD Primary Care Provider [phone] Allergies No known active allergies Medications levothyroxine [...] Date Resolved Date Patrick's esophagus 03/19/2017 03/27/20 21 Gastroesophageal reflux disease 03/19/2017 03/27/2021 Primary osteoarthritis [...] 56 05/20/2023 2:02 PM EST Temperature 36.2 C (97.2 F) 05/20/2023 2:02 PM EST Respiratory Rate - - Oxygen Saturation 98% 05/20/2023 2:02 PM EST Inhaled Oxygen Concentration - - Weight 69.9 kg (154 lb) 05/20/2023 2:02 PM EST Height 172.7 cm (5' 8 ) 05/20/2023 2:02 PM EST Body Mass Index 23.42 05/20/2023 2:02 PM EST Plan of Treatment Health Maintenance Due Date Last Done Comments Influenza Vaccine (#1) 2025 3, 03/23/2022, 12/28/2019, Additional history exists Pneumococcal Vaccine: 50+ Years Completed 12/27/2020, 01/12/2020 Pneumococcal Vaccine: Peds (0 to 5 Years) and At-Risk Patients (6 to 49 Years) Discontinued 12/27/2020, 01/12/2020 Hepatitis B Vaccine Aged Out No longe r eligible based on patient's age to complete this topic Insurance * Guarantor: Maggie Morris Account Type Relation to Patient Date of Phone Billing Address Personal/Family Self [address] [place] [address] Medicare Medicare Unicare Care Teams Linseed Oil Refiner Relationship Specialty Start Date End Date Eamon Hahn MD [address] [place] [address] PCP - General 05/20/20
--- OUTSIDE RECORDS SUMMARY | 2025-01-18 10:11 | XMS_ITS | Clinical Summary ---
Author Organization [facility] Address [address] [place] [address] Care Team Providers Care Seat Pack Inspector Name Role Phone Eamon Hahn MD Primary Care Provider [phone] Medications Medication Sig Dispensed Refills Start Date [...] 59 06/16/2023 1:25 PM EST Temperature 36.5 C (97.7 F) 06/16/2023 1:25 PM EST Respiratory Rate 18 06/16/2023 1:25 PM EST [...] 1-dose 75+ series) 2015 COVID-19 Vaccine ( - season) 2025 06/12/2020, 05/22/2020 Influenza Vaccine (#1) 2025 3, 03/23/2022, 12/28/2019, Additional history exists Pneumococcal Vaccine Completed 12/27/2020, 01/12/20 Hepatitis B Vaccines Aged Out No long er eligible based on patient's age to complete this topic RSV Ped < 20 months Aged Out No longe r eligible based on patient's age to complete this topic Care Teams Seat Pack Inspector Relationship Specialty Start Date End Date Eamon Hahn MD [address] [place] [address] PCP - General Internal Medicine 04/01/21
[2025-01-18 10:51] LABS: Hemoglobin A1C 100.1490 umol/L; Total Hemoglobin (HGBA1C) 2837.0246 umol/L
[2025-01-18 11:31] LABS: Alanine Aminotransferase 25 U/L (0-40); Albumin Level 4.4 g/dL (3.5-5.0); Alkaline Phosphatase 66 U/L (39-117); Anion Gap 14 (12-20); Aspartate Amino Transferase 28 U/L (5-37); Blood Urea Nitrogen 43 mg/dL (9-16); Calcium 9.3 mg/dL (8.4-10.2); Carbon Dioxide 22 mmol/L (22-29); Chloride 109 mmol/L (96-108); Estimated Glomerular Filt Rate 25; Potassium 4.4 mmol/L (3.3-5.1); Sodium 141 mmol/L (135-145); Total Protein 6.6 g/dL (6.5-8.0)
== END 2025-01-18 08:59 | disposition home or self-care (01) ==
LOC: HO.10HDL 08:58
PROVIDERS: Referring Provider Internal Medicine; Visit Provider Internal Medicine Nephrology
DX: I10 Essential (primary) hypertension (principal); R73.01 Impaired fasting glucose; C85.90 Non-Hodgkin lymphoma, unspecified, unspecified site
CPT/HCPCS: 36415; 80053; 83036; 84443

== ENCOUNTER 2025-01-22 10:21 | Outpatient (AMB) | payer MEDICARE, OTHER, SELFPAY ==
--- NOTE | 2025-01-22 10:18 | HO.NEPHOV ---
Vital Signs 01/22/25 10:20 Height 5 ft 8 in Weight 152 lb BMI 23.1 Intake Visit Reasons: FU E/M Engineer Required: No Accompanied by: Self / Same As Patient Allergies No Known Allergies Allergy (Mild, Verified 01/22/25 10:19) NONE HPI Comments Details: Josh was seen by [facility] in follow-up of his chronic kidney disease and hypertension. He is closely followed by his oncologist for follow up of his lymphoma and is due to have a follow up PET scan in a few months. He does not have any chest pain, shortness of breath, nausea, vomiting, diarrhea, hematuria or pedal edema. He does not take any excessive nonsteroidal anti-inflammatory medications. His mrxnutaz-ug-aso checks his blood pressure at home and has been fairly well controlled. His serum creatinine has gone up to 2.3-2.4 but stable. His K was 6.4 which was treated with K lowering medications and is normal now. He had no new complaints at the time of this visit [facility] Medical History CKD (chronic kidney disease) stage 3, GFR 30-59 ml/min Marginal zone B-cell lymphoma Hx of small bowel obstruction Lumbar spondylitis Degenerative lumbar spinal stenosis Atrial fibrillation Leg edema Apical mural thrombus Arthritis Hiatal hernia Hypothyroidism HTN (hypertension) Rosacea Basal cell carcinoma Lymphadenopathy Surgical History History of spinal surgery (~05/2023) Hx of biopsy Hx of colonoscopy Hx of tonsillectomy Hx of total knee replacement Family History Father Heart disease Social History Household Members: Spouse Housing: House Are you a primary care management coordinator to a significant other at home: Yes () Do you presently have visiting nurse or other home services: Yes (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 ) Alcohol intake: current Alcohol intake frequency: holidays/special occasions only Alcohol type: beer Patient Tobacco Use Status: Former Tobacco user Tobacco use type: Cigarette Cigarette Packs Per Day: 1 Advance Directives Date on File: 05/27/21 service: Yes Current occupational status: retired Current occupation: [employer] Current occupational exposures/hazards: No Review of Systems Const All systems reviewed & are unremarkable except as noted in HPI and below Physical Exam Vital Signs: BMI result Body Mass Index 23.1 Telehealth Telehealth Telehealth Platform: Telephone Location of provider rendering services: practice address Location of patient: address on file Patient Identification confirmed using: Name, : Yes Telehealth method: voice only Patient verbally consented to treatment: Yes Patient verbally consented to billing insurance company: Yes Patient informed of any privacy concerns related to visit: No Minutes spent on Phone/Video with Pt.: 10 Results Reviewed Nephrology Results: Hgb, (14.0-18.0) 10.7 g/dl L 01/16/25 WBC, (4.8-10.8) 6.7 X10*3/uL 01/16/25 Plt Count, (160-400) 210 X10*3/uL 01/16/25 Sodium, (135-145) 141 mmol/L 01/18/25 Potassium, (3.3-5.1) 4.4 mmol/L Δ 01/18/25 Chloride, (96-108) 109 mmol/L H 01/18/25 Carbon Dioxide, (22-29) 22 mmol/L 01/18/25 BUN, (9-16) 43 mg/dL H 01/18/25 Creatinine, (0.5-1.4) 2.48 mg/dL H 01/18/25 Calcium, (8.4-10.2) 9.3 mg/dL 01/18/25 PTH Intact, (8.7-77.1) 446.4 pg/mL H 07/03/24 Assessment & Plan Assessment & Plan (1) HTN (hypertension): Code(s): I10 - Essential (primary) hypertension Category: Medical Qualifiers: Hypertension type: primary hypertension Qualified Code(s): I10 - Essential (primary) hypertension (2) Secondary hyperparathyroidism (of renal origin): Code(s): N25.81 - Secondary hyperparathyroidism of renal origin Category: Medical (3) CKD (chronic kidney disease) stage 4, GFR 15-29 ml/min: Code(s): N18.4 - Chronic kidney disease, stage 4 (severe) Category: Medical (4) Hyperkalemia: Code(s): E87.5 - Hyperkalemia Category: Medical Plan Josh has longstanding CKD and hypertension. His serum K has normalized. He should continue Kionex 30 gram two times a week. His blood pressure is well controlled on current medications. His serum creatinine is stable. If his creatinine goes up, I plan to back off his ARB, increase his Nifedipine and initiate him on SGLT2 i as well. He should continue on calcitriol 0.25mcg three times a week. He does not take any excessive nonsteroidal anti-inflammatories.I did not make any other medication changes today. F/U labs ordered; All his questions were answered. Orders: Orders Parathyroid Hormone Intact 3 Months E87.5 - Hyperkalemia, I10 - Essential (primary) hypertension, N18.4 - Chronic kidney disease, stage 4 (severe), N25.81 - Secondary hyperparathyroidism of renal origin Vitamin D 25-OH Total 3 Months E87.5 - Hyperkalemia, I10 - Essential (primary) hypertension, N18.4 - Chronic kidney disease, stage 4 (severe), N25.81 - Secondary hyperparathyroidism of renal origin Complete Blood Count Auto Diff 3 Months E87.5 - Hyperkalemia, I10 - Essential (primary) hypertension, N18.4 - Chronic kidney disease, stage 4 (severe), N25.81 - Secondary hyperparathyroidism of renal origin Calcium 3 Months E87.5 - Hyperkalemia, I10 - Essential (primary) hypertension, N18.4 - Chronic kidney disease, stage 4 (severe), N25.81 - Secondary hyperparathyroidism of renal origin Blood Urea Nitrogen 3 Months E87.5 - Hyperkalemia, I10 - Essential (primary) hypertension, N18.4 - Chronic kidney disease, stage 4 (severe), N25.81 - Secondary hyperparathyroidism of renal origin Phosphorus 3 Months E87.5 - Hyperkalemia, I10 - Essential (primary) hypertension, N18.4 - Chronic kidney disease, stage 4 (severe), N25.81 - Secondary hyperparathyroidism of renal origin Electrolytes 3 Months E87.5 - Hyperkalemia, I10 - Essential (primary) hypertension, N18.4 - Chronic kidney disease, stage 4 (severe), N25.81 - Secondary hyperparathyroidism of renal origin Creatinine 3 Months E87.5 - Hyperkalemia, I10 - Essential (primary) hypertension, N18.4 - Chronic kidney disease, stage 4 (severe), N25.81 - Secondary hyperparathyroidism of renal origin Coding Level of Care Code Tele Est Pt Level 4 (99672) Diagnoses Primary hypertension I10 Hypertension type: primary hypertension Secondary hyperparathyroidism (of renal origin) N25.81 CKD (chronic kidney disease) stage 4, GFR 15-29 ml/min N18.4 Hyperkalemia E87.5
[2025-01-22 10:20] VITALS: BMI 23.1
--- OUTSIDE RECORDS SUMMARY | 2025-01-22 13:07 | XMS_ITS | Clinical Summary ---
Author Organization [facility] Address [address] [place] [address] Phone Care Team Providers Care Roof Promenade Tile Setter Name Role Phone Eamon Hahn MD Primary Care Provider [phone] Allergies No known active allergies Medications levothyroxine [...] topic Insurance Medicare Medicare Unicare Care Teams Roof Promenade Tile Setter Relationship Specialty Start Date End Date Eamon Hahn MD [address] [place] [address] PCP - General 05/20/20
--- OUTSIDE RECORDS SUMMARY | 2025-01-22 13:07 | XMS_ITS | Clinical Summary ---
Author Organization [facility] Address [address] [place] [address] Care Team Providers Care Dressed Poultry Grader Name Role Phone Unknown, Provider MD Primary [...] COVID-19 Vaccine ( season) 2024 Care Teams Dressed Poultry Grader Relationship Specialty Start Date End Date Unknown, Provider, PCP - General 03/22/15
--- OUTSIDE RECORDS SUMMARY | 2025-01-22 13:07 | XMS_ITS | Encounter Summary ---
Author Organization [facility] Address [address] [place] [address] Phone Care Team Providers Care Ceo And President Name Role Phone Eamon Hahn MD Primary Care Provider [phone] Diamond Vick MD Unavailable Eamon Hahn MD Unavailable [phone] Encounter Details Date Type Department Care Team (Late st Contact Info) Description 01/19/2025 Orders Only [facility] Internal Medicine [address] [place] [address] Provider, MD Dinesh [address] [place] [address] Social History Tobacco Use Types Packs/Day Years Used Date Smoking Tobacco: Former Cigarettes 0.8 14 0 05/10/1956 - 05/10/1970 Smokeless Tobacco: Never Alcohol Use Standard Drinks/Week Comments Yes 8 [...] on file documented as of this encounter Plan of Treatment Upcoming Encounters Date Type Department Care Team (Late st Contact Info) Description 07/20/2025 11:00 AM EDT Office Visit [facility] Internal Medicine [address] [place] [address] Eamon Hahn MD [address] [place] [address] [email or web address] 01/25/2026 10:40 AM EDT Office Visit [facility] Internal Medicine [address] [place] [address] Yesenia Melendez PA-C [address] [place], [place] [id number] [email or web address] documented as of this encounter Procedures Procedure Name Priority Date/Time Associated Diagnosis Comments OUTSIDE LAB Routine 01/18/2025 12:03 PM EDT documented in this encounter Results * Outside Lab (01/18/2025 12:03 PM EDT) us Historical Provider LAB BLOOD ORDERABLES Karla l Result documented in this encounter Visit Diagnoses Not on filedocumented in this encounter Additional Health Concerns Assessment Noted Time PHQ-2 Depression Total Score: 0 01/05/20 25 4:16 PM EDT documented as of this encounter Care Teams Ceo And President Relationship Specialty Start Date End Date Eamon Hahn MD [address] [place] [address] PCP - General Internal Medicine 03/19/17 Diamond Vick MD [address] [place] [phone] [email or web address] 01/12/20 Eamon Hahn MD [address] [place] [address] [email or web address] Insurance Assigned Provider 08/14/23 documented as of this encounter Additional Source Comments The information contained in this document represents components of the legal health record. It is not the complete legal health record.[facility]
--- OUTSIDE RECORDS SUMMARY | 2025-01-22 13:07 | XMS_ITS | Encounter Summary ---
Author Organization [facility] Address [address] [place] [address] Phone Care Team Providers Care Extension Agent Name Role Phone Eamon Hahn MD Primary Care Provider [phone] Diamond Vick MD Unavailable Eamon Hahn MD Unavailable [phone] Reason for Visit * Reason Onset Date Comments Herpes Zoster 09/30/2022 Encounter Details Date Type Department Care Team (Late st Contact Info) Description 09/30/2022 Nurse Triage [facility] Internal Medicine [address] [place], [place] [id number] Eamon Hahn MD [address] [place] [address] [email or web address] Herpes Zoster Social History Tobacco Use Types [...] either cetirizine or loratadine. * They are rtal-nzy-aovqcxe (OTC) antihistamine medicines. You can buy them [...] acetaminophen, ibuprofen, or naproxen. * They are sjzn-jwv-vhbegvt (OTC) pain drugs. You can buy them [...] acetaminophen overdose can hurt the liver. * [employer], the company that makes Tylenol, has different dosage instructions for Tylenol in [place] and the [place]. In [place], the maximum recommended dose per day is 4,000 mg or twelve Regular-Strength (325 mg) pills. In the [place], the maximum dose per day is ten Regular-Strength (325mg) pills. * [employer], the company that makes Aleve, has different [...] Description 07/20/2025 11:00 AM EDT Office Visit [facility] Internal Medicine [address] [place], [place] [phone] Eamon Hahn MD [address] [place], [place] [id number] [email or web address] 01/25/2026 10:40 AM EDT Office Visit [facility] Internal Medicine [address] [place], [place] [phone] Yesenia Melendez PA-C [address] [place], [place] [phone] [email or web address] documented as of this encounter Visit Diagnoses Not on filedocumented in this encounter Additional Health Concerns Assessment Noted Time PHQ-2 Depression Total Score: 0 10/01/19 23 3:57 PM EDT documented as of this encounter Care Teams Extension Agent Relationship Specialty Start Date End Date Eamon Hahn MD [address] [place] [address] [email or web address] PCP - General Internal Medicine 03/19/17 Diamond Vick MD [address] [place] [address] [email or web address] 01/12/20 Eamon Hahn MD [address] [place] [address] [email or web address] Insurance Assigned Provider 08/14/23 documented as of this encounter Additional Source Comments The information contained in this document represents components of the legal health record. It is not the complete legal health record.[facility]
--- OUTSIDE RECORDS SUMMARY | 2025-01-22 13:08 | XMS_ITS | Clinical Summary ---
Author Organization [facility] Address [address] [facility] [address] [place] [address] Phone Care Team Providers Care Reservoir Engineering Consultant Name Role Phone Eamon Hahn MD Primary Care Provider [phone] Diamond Vick MD Unavailable [phone] Eamon Hahn MD Unavailable [phone] Allergies No known active allergies Medications ketoconazole [...] Date Lymphoma 02/10/2024 Overview (02/10/2024): Markus w [facility] oncology Dr. Diamond Vick- last OV 01/14/24 f/u 4m Normocytic normochromic anemia 12/29/2023 Overview (12/29/2023): Lab done [facility] 11/19/23 H/H 11.3/ and 33.5 Iron studies normal- see media scan dated 12/13/23 Atrial fibrillation 12/19/2020 Patrick's esophagus 03/19/2017 Essential hypertension 03/19/2017 Gastroesophageal reflux disease 03/19/2017 Hyponatremia 03/19/2017 Pure hypercholesterolemia 03/19/2017 Primary osteoarthritis of left knee 03/19/2017 Encounters Date Type Department Care Team Description 01/19/2025 Orders Only [facility] Internal Medicine [address] [facility] [place] [address] Provider, MD Dinesh 01/05/2025 1:00 PM EDT Office Visit [facility] Internal Medicine [address] [facility] [place] [address] Eamon Hahn MD Routine general medical examination at a health care facility (Primary Dx); Essential hypertension; Lymphoma, unspecified body region, unspecified lymphoma type; Chronic right-sided low back pain without sciatica; Pure hypercholesterolemia ; Patrick's esophagus without dysplasia; Impaired fasting blood sugar 12/04/2024 Telephone [facility] Internal Medicine [address] [facility] [address] Eamon Hahn MD Review of Orders from [...] Description 07/20/2025 11:00 AM EDT Office Visit [facility] Internal Medicine [address] [place] [address] Eamon Hahn MD [address] [place] [address] [email or web address] 01/25/2026 10:40 AM EDT Office Visit [facility] Internal Medicine [address] [place] [address] Yesenia eMlendez PA-C [address] [place] [address] [email or web address] Health Maintenance Due Date Last Done Comments [...] OUTSIDE LAB Routine 01/18/2025 12:03 PM EDT TSH Routine 06/16/2024 11:40 AM EST Pure hypercholesterolemia Essential hypertension COMPREHENSIVE METABOLIC PANEL Routine 06/16/2024 11:40 AM EST Pure hypercholesterolemia Essential hypertension from Last 3 Months or Most Recently Relevant to Health Maintenance Results * Outside Lab (01/18/2025 12:03 PM EDT) Historical Provider LAB BLOOD ORDERABLES Karla l Result * (ABNORMAL) Comprehensive metabolic panel (06/16/2024 11:40 AM EST) SODIUM 136 133 - 146 mmol/L [facility] POTASSIUM 4.6 3.3 - 5.1 mmol/L [facility] CHLORIDE 103 96 - 108 mmol/L [facility] CO2 22 21 - 35 mmol/L [facility] BUN 34(H) 6 - 19 mg/dL [facility] CREATININE 2.40(H) 0.5 - 1.5 mg/dL [facility] GLUCOSE 104(H) 70 - 99 mg/dL [facility] ALBUMIN 4.0 3.9 - 4.8 g/dL [facility] TOTAL PROTEIN 7.2 6.5 - 8.0 g/dL [facility] CALCIUM 9.2 8.4 - 10.3 mg/dL [facility] ALKALINE PHOSPHATASE 105 39 - 117 U/L [facility] TOTAL BILIRUBIN 0.4 0.0 - 1.2 mg/dL [facility] AST 28 0 - 37 U/L [facility] ALT 22 0 - 40 U/L [facility] GLOBULIN 3.2 1 - 4.8 g/dL [facility] EGFR 26(L) >59 mL/min/1.7 3m2 [facility] Comment:Estimated glomerular filtration rate calculated using the CKD-EPI refit equation. ANION GAP 16 10 - 20 mmol/L [facility] Blood 06/16/2024 11:4 0 AM EST 06/16/2024 11:45 AM EST Eamon Hahn MD LAB BLOOD ORDERABLES Final Re sult [facility] [address] [place] [address] * TSH (06/16/2024 11:40 AM EST) TSH 1.75 0.27 - 4.20 uIU/mL [facility] Blood 06/16/2024 11:4 0 AM EST 06/16/2024 11:45 AM EST us Eamon Hahn MD LAB BLOOD ORDERABLES Final Re sult [facility] Organization Address City/State/ZIP Co de Phone Number [facility] [address] [place] [address] from Last 3 Months or Most Recently Relevant to Health Maintenance Insurance MEDICARE PART A & B [facility] MEDICARE SUPPLEMENT MEDICARE PART A & B [employer] MEDICARE SUPPLEMENT MEDICARE PART A & B [employer] MEDICARE SUPPLEMENT [facility] MEDICARE SUPPLEMENT [employer] MEDICARE SUPPLEMENT MEDICARE PART A & B [id number] [place], [place] [address] MEDICARE SUPPLEMENT [facility] MEDICARE SUPPLEMENT [facility] [employer] MEDICARE SUPPLEMENT MEDICARE PART A & B [employer] [facility] EXTENSION MEDICARE SUPPLEMENT [place] [id number] Advance Directives For more information, please contact: [phone] (9AM - 5PM [facility], Wednesday-Wednesday) Documents on File Type Date Recorded Patient Public Transit Specialist Expl anation [facility] 07/08/2023 [facility] Healthcare Proxy 03/08/2018 Health Care Proxy Care Teams Reservoir Engineering Consultant Relationship Specialty Start Date End Date Eamon Hahn MD [address] [place] [address] [email or web address] PCP - General Internal Medicine 03/19/17 Diamond Vick MD [address] [place] [address] [email or web address] 01/12/20 Eamon Hahn MD [address] [place] [address] [email or web address] Insurance Assigned Provider 08/14/23 Additional Source Comments The information contained in this document represents components of the legal health record. It is not the complete legal health record.[facility]
--- OUTSIDE RECORDS SUMMARY | 2025-01-22 13:08 | XMS_ITS | Clinical Summary ---
Author Organization [facility] Address [address] [place] [address] Care Team Providers Care Channel Director Name Role Phone Eamon Hahn MD Primary Care Provider [phone] Medications Medication Sig Dispensed Refills Start Date [...] age to complete this topic Care Teams Channel Director Relationship Specialty Start Date End Date Eamon Hahn MD [address] [place] [address] PCP - General Internal Medicine 04/01/21
== END 2025-01-22 11:27 | disposition home or self-care (01) ==
LOC: HO.HKA 10:21
PROVIDERS: PCP Internal Medicine; Visit Provider Internal Medicine Nephrology
DX: I12.9 Hypertensive chronic kidney disease with stage 1 through stage 4 chronic kidney disease, or unspecified chronic kidney disease (principal); N25.81 Secondary hyperparathyroidism of renal origin; N18.4 Chronic kidney disease, stage 4 (severe); E87.5 Hyperkalemia
CPT/HCPCS: 99214

== ENCOUNTER 2025-04-08 15:24 | Emergency (ER) | payer MEDICARE, OTHER, SELFPAY ==
[2025-04-08 15:26] VITALS: BP 189/92; PULSE 77; RESP 16; TEMP 36.4; O2SAT 100; BMI 24.3
--- NOTE | 2025-04-08 15:29 | ED.MALEGU ---
HPI - Male Genitourinary General Chief complaint: Urogenital-Male Stated complaint: unable to pee for 12 hrs, abd pain Time Seen by Provider: 04/08/25 16:26 Related Data Home Medications ?Medication ?Instructions ?Recorded ?Confirmed levothyroxine 75 mcg tablet 75 mcg PO DAILY@0630 07/24/20 01/16/25 multivitamin 1 tab PO DAILY 05/26/21 01/16/25 losartan 25 mg tablet 25 mg PO BID 07/07/24 01/16/25 nifedipine 30 mg tablet,extended 30 mg PO DAILY 07/21/24 01/16/25 release nifedipine 30 mg tablet,extended 60 mg PO DAILY 07/21/24 01/16/25 release ketoconazole 2 % topical cream 2 appl topical DAILY 01/16/25 01/16/25 melatonin 3 mg tablet 3 mg PO DAILY 01/16/25 01/16/25 Previous Rx's ?Medication ?Instructions ?Recorded metoprolol tartrate 100 mg tablet 100 mg PO BID #180 tabs 03/03/23 cholecalciferol (vitamin D3) 50 50 mcg PO DAILY #30 caps 07/07/24 mcg (2,000 unit) capsule atorvastatin 20 mg tablet 20 mg PO BEDTIME #90 tabs 09/25/24 apixaban 2.5 mg tablet (Eliquis) 2.5 mg PO BID #180 tabs 01/09/25 sodium polystyrene sulfonate 15 30 g PO .COMPLEX #453.6 grams 01/16/25 gram oral powder calcitriol 0.25 mcg capsule 0.25 mcg PO 3XW #14 caps 02/26/25 tamsulosin 0.4 mg capsule (Flomax) 0.4 mg PO BEDTIME #14 caps 04/08/25 Allergies Allergy/AdvReac Type Severity Reaction Status Date / Time No Known Allergies Allergy Mild NONE Verified 04/08/25 15:28 [facility] Past Medical History Medical History CKD (chronic kidney disease) stage 3, GFR 30-59 ml/min Marginal zone B-cell lymphoma Hx of small bowel obstruction Lumbar spondylitis Degenerative lumbar spinal stenosis Atrial fibrillation Leg edema Apical mural thrombus Arthritis Hiatal hernia Hypothyroidism HTN (hypertension) Rosacea Basal cell carcinoma Lymphadenopathy Surgical History History of spinal surgery (~05/2023) Hx of biopsy Hx of colonoscopy Hx of tonsillectomy Hx of total knee replacement Family History Family History Father Heart disease Social History Social History Household Members: Spouse Housing: House Are you a primary toddler caregiver to a significant other at home: Yes () Do you presently have visiting nurse or other home services: 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 ) Alcohol intake: current Alcohol intake frequency: holidays/special occasions only Alcohol type: beer Patient Tobacco Use Status: Former Tobacco user Tobacco use type: Cigarette Cigarette Packs Per Day: 1 Advance Directives: Yes Advance Directives on File: Yes Advance Directives Date on File: 05/27/21 service: Yes Current occupational status: retired Current occupation: [employer] Current occupational exposures/hazards: No Physical Exam Vital Signs: Vital Signs: Last Vital Signs Temp 97.5 F 04/08/25 15:26 Pulse 77 04/08/25 15:26 Resp 16 04/08/25 15:26 BP 189/92 H 04/08/25 15:26 Pulse Ox 100 04/08/25 15:26 O2 Del Method Room Air 04/08/25 15:26 BMI result Body Mass Index 24.3 Course Course Course Narrative: Medical screening exam performed. Please refer to detailed history, exam, evaluation, and management by primary provider. Patient unable to urinate since approximately 4:00 a.m. today. No history of previous. Labs and imaging ordered. Bladder scan pending. Bladder scan demonstrates 800 mL of urine. Medications Administered Discontinued Medications Generic Name Dose Route Start Last Admin Trade Name Freq PRN Reason Stop Dose Admin Lidocaine HCl 10 ml 04/08/25 16:08 04/08/25 16:14 Lidocaine Hcl 2 % Urojet 10 Ml Jel.Pf.Jasmeet TOPICAL 04/08/25 16:09 10 ml ONCE ONE Administration Medical Decision Making Lab Data 04/08/25 15:42 04/08/25 15:42 Labs: Lab Results 04/08/25 04/08/25 Range/Units 15:42 16:22 WBC 8.0 (4.8-10.8) X10*3/uL RBC 3.26 L (4.60-5.80) X10*6/uL Hgb 10.1 L (14.0-18.0) g/dl Hct 31.1 L (42.0-52.0) % MCV 95.4 (80.0-98.0) fL MCH 31.0 (27.0-33.0) pg MCHC 32.5 (31.0-36.0) g/dl RDW 12.7 (11.0-16.0) % Plt Count 245 (160-400) X10*3/uL MPV 10.1 (9.4-12.4) fL Immature Gran % (Auto) 0.5 H (0.0-0.4) % Neut % (Auto) 81.9 H (45-73) % Lymph % (Auto) 9.3 L (20-40) % [place] % (Auto) 6.8 (2-11) % Eos % (Auto) 0.9 (0-4) % Baso % (Auto) 0.6 (0-2) % Lymph # (Auto) 0.7 L (1.2-4.9) X10*3/uL [place] # (Auto) 0.5 (0.1-1.2) X10*3/uL Eos # (Auto) 0.1 (0.0-0.4) X10*3/uL Baso # (Auto) 0.1 (0.0-0.2) X10*3/uL Abs Immat Gran (auto) 0.04 H (0.00-0.03) X10*3/uL Absolute Neuts (auto) 6.5 (2.0-8.3) x10*3/uL Absolute Nucleated RBC 0.000 (0.0-0.012) X10*3/uL Nucleated RBC % (auto) 0.0 (0.0-0.2) /100WBC Sodium 139 (135-145) mmol/L Potassium 5.0 (3.3-5.1) mmol/L Chloride 110 H (96-108) mmol/L Carbon Dioxide 18 L (22-29) mmol/L Anion Gap 16 (12-20) BUN 50 H (9-16) mg/dL Creatinine 3.07 H (0.5-1.4) mg/dL Estim Creat Clear Calc 16.7 Estimated GFR 20 Random Glucose 111 (60-115) mg/dL Lactic Acid 0.9 (0.5-2.0) mmol/L Calcium 8.8 (8.4-10.2) mg/dL Total Bilirubin 0.4 (0.0-1.0) mg/dL AST 32 (5-37) U/L ALT 28 (0-40) U/L Alkaline Phosphatase 81 (39-117) U/L Total Protein 6.9 (6.5-8.0) g/dL Albumin 4.5 (3.5-5.0) g/dL Lipase 40 (8-78) U/L Urine Color Yellow Urine Appearance Clear Urine pH 6.0 (5.0-9.0) Ur Specific [place] 1.010 (1.005-1.025) Urine Protein 300 (3+) H (Neg-Trace) mg/dL Urine Glucose (UA) Negative (Negative) mg/dL Urine Ketones Negative (Negative) mg/dL Urine Blood Trace H (Negative) Urine Nitrite Negative (Negative) Ur Leukocyte Esterase Negative (Negative) Discharge Plan Discharge Clinical Impression: Acute urinary retention Patient Disposition: Home, Self-Care Instructions: Urinary Retention in Men (ED) Prescriptions: New tamsulosin [Flomax] 0.4 mg capsule 0.4 mg PO BEDTIME Qty: 14 0RF No Action metoprolol tartrate 100 mg tablet 100 mg PO BID Qty: 180 3RF atorvastatin 20 mg tablet 20 mg PO BEDTIME Qty: 90 3RF Eliquis 2.5 mg tablet 2.5 mg PO BID Qty: 180 0RF sodium polystyrene sulfonate 15 gram powder 30 g PO .COMPLEX Qty: 453.6 3RF Rx Instructions: 30 grams orally daily for 5 days followed by twice a week; calcitriol 0.25 mcg capsule 0.25 mcg PO 3XW Qty: 14 4RF levothyroxine 75 mcg tablet 75 mcg PO DAILY@0630 melatonin 3 mg Tablet 3 mg PO DAILY ketoconazole 2 % cream 2 appl topical DAILY multivitamin Tablet 1 tab PO DAILY nifedipine 30 mg tablet extended release 30 mg PO DAILY losartan 25 mg tablet 25 mg PO BID cholecalciferol (vitamin D3) 50 mcg (2,000 unit) capsule 50 mcg PO DAILY Qty: 30 11RF nifedipine 30 mg tablet extended release 60 mg PO DAILY Rx Instructions: 2 tabs AM 1 tab at night Referrals: Heath Zapata MD [Physician, Urology] - 04/10/25 Print Language: Yoruba
[2025-04-08 15:51] LABS: MANUAL DIFF FLAG NO
[2025-04-08 15:59] LABS: Hematocrit 31.1 % (42.0-52.0); Hemoglobin 10.1 g/dl (14.0-18.0); Imm Gran Abs Auto 0.04 X10*3/uL (0.00-0.03); Imm Gran Pct Auto 0.5 % (0.0-0.4); Lymphocytes Absolute Auto 0.7 X10*3/uL (1.2-4.9); Mean Corpuscular HGB Conc 32.5 g/dl (31.0-36.0); Mean Corpuscular Hemoglobin 31.0 pg (27.0-33.0); Mean Corpuscular Volume 95.4 fL (80.0-98.0); NRBC Abs Auto 0.000 X10*3/uL (0.0-0.012); NRBC Pct Auto 0.0 /100WBC (0.0-0.2); Platelet Count 245 X10*3/uL (160-400); Red Blood Count 3.26 X10*6/uL (4.60-5.80); White Blood Count 8.0 X10*3/uL (4.8-10.8)
[2025-04-08 16:06] LABS: Alanine Aminotransferase 28 U/L (0-40); Albumin Level 4.5 g/dL (3.5-5.0); Alkaline Phosphatase 81 U/L (39-117); Anion Gap 16 (12-20); Aspartate Amino Transferase 32 U/L (5-37); Blood Urea Nitrogen 50 mg/dL (9-16); Calcium 8.8 mg/dL (8.4-10.2); Carbon Dioxide 18 mmol/L (22-29); Chloride 110 mmol/L (96-108); Creatinine Clr Calc Pharmacy 16.7; Estimated Glomerular Filt Rate 20; Lipase 40 U/L (8-78); Potassium 5.0 mmol/L (3.3-5.1); Sodium 139 mmol/L (135-145); Total Protein 6.9 g/dL (6.5-8.0)
[2025-04-08] MEDS: Lidocaine HCl 2 % Urojet 10 ML JEL.PF.APP TOPICAL (16:14)
--- NOTE | 2025-04-08 16:38 | ED.MALEGU ---
HPI - Male Genitourinary General Chief complaint: Urogenital-Male Stated complaint: unable to pee for 12 hrs, abd pain Time Seen by Provider: 04/08/25 16:26 History of Present Illness HPI Narrative: Patient is an 84-year-old male with a history of hypertension hypercholesterolemia history of possible AFib currently on Eliquis. Presented today with unable to urinate for the last 12-24 hours. Patient has tried to drink some water and did not help had a lot of pain in the lower abdomen on arrival. Was noted to have a large amount of urine a Gomez was placed by nursing. Related Data Home Medications ?Medication ?Instructions ?Recorded ?Confirmed levothyroxine 75 mcg tablet 75 mcg PO DAILY@0630 07/24/20 01/16/25 multivitamin 1 tab PO DAILY 05/26/21 01/16/25 losartan 25 mg tablet 25 mg PO BID 07/07/24 01/16/25 nifedipine 30 mg tablet,extended 30 mg PO DAILY 07/21/24 01/16/25 release nifedipine 30 mg tablet,extended 60 mg PO DAILY 07/21/24 01/16/25 release ketoconazole 2 % topical cream 2 appl topical DAILY 01/16/25 01/16/25 melatonin 3 mg tablet 3 mg PO DAILY 01/16/25 01/16/25 Previous Rx's ?Medication ?Instructions ?Recorded metoprolol tartrate 100 mg tablet 100 mg PO BID #180 tabs 03/03/23 cholecalciferol (vitamin D3) 50 50 mcg PO DAILY #30 caps 07/07/24 mcg (2,000 unit) capsule atorvastatin 20 mg tablet 20 mg PO BEDTIME #90 tabs 09/25/24 apixaban 2.5 mg tablet (Eliquis) 2.5 mg PO BID #180 tabs 01/09/25 sodium polystyrene sulfonate 15 30 g PO .COMPLEX #453.6 grams 01/16/25 gram oral powder calcitriol 0.25 mcg capsule 0.25 mcg PO 3XW #14 caps 02/26/25 tamsulosin 0.4 mg capsule (Flomax) 0.4 mg PO BEDTIME #14 caps 04/08/25 Allergies Allergy/AdvReac Type Severity Reaction Status Date / Time No Known Allergies Allergy Mild NONE Verified 04/08/25 15:28 Review of Systems Review of Systems: Positive unable to urinate Yes all other systems are reviewed and are negative PMFSH Past Medical History Attestation statement: The following information was validated with the patient. Medical History CKD (chronic kidney disease) stage 3, GFR 30-59 ml/min Marginal zone B-cell lymphoma Hx of small bowel obstruction Lumbar spondylitis Degenerative lumbar spinal stenosis Atrial fibrillation Leg edema Apical mural thrombus Arthritis Hiatal hernia Hypothyroidism HTN (hypertension) Rosacea Basal cell carcinoma Lymphadenopathy Surgical History History of spinal surgery (~05/2023) Hx of biopsy Hx of colonoscopy Hx of tonsillectomy Hx of total knee replacement Family History Family History Father Heart disease Social History Social History Household Members: Spouse Housing: House Are you a primary care companion to a significant other at home: Yes () Do you presently have visiting nurse or other home services: 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 Oriented X3. No acute distress. Eyes: Pupils equal, round and reactive to light. ENT: Pharynx normal. Neck: Normal inspection. Neck supple. No lymph nodes noted. No crepitus CVS: Normal heart rate and rhythm. Pulses normal. Normal S1 and S2 Respiratory: No respiratory distress. Breath sounds normal. No Wheezing. No rales Abdomen: Soft and nontender. No rigidity. No distention. good BS x4 Skin: Skin warm and dry. Normal skin color. Normal skin turgor. Extremities: No lower extremity edema. Neurovascular intact to all extremities. No Lacerations. No Rash Neuro: Oriented X 3. No motor deficit. No sensory deficit. Moving all extermities. No slurred speech Vital Signs: Vital Signs: Last Vital Signs Temp 97.5 F 04/08/25 15:26 Pulse 77 04/08/25 15:26 Resp 16 04/08/25 15:26 BP 189/92 H 04/08/25 15:26 Pulse Ox 100 04/08/25 15:26 O2 Del Method Room Air 04/08/25 15:26 BMI result Body Mass Index 24.3 Medications Administered Discontinued Medications Generic Name Dose Route Start Last Admin Trade Name Carl PRN Reason Stop Dose Admin Lidocaine HCl 10 ml 04/08/25 16:08 04/08/25 16:14 Lidocaine Hcl 2 % Urojet 10 Ml Jel.Pf.Jasmeet TOPICAL 04/08/25 16:09 10 ml ONCE ONE Administration Medical Decision Making Medical Decision Making [facility] Narrative: Patient's bladder scan showed 800 cc of urine. Consistent with retention. A Gomez catheter was placed by nursing. Over a L of urine drained out. Patient no acute distress. Differential Diagnosis Differential Diagnoses: The differential diagnosis associated with the presentation includes Urinary retention. Abdominal pathology. Urinary tract infection. Admission/Observation Consideration of admission/observation: Escalation of care including admission/observation considered Lab Data [facility] Lab Attestation statement: I reviewed the patient's lab results. 04/08/25 15:42 04/08/25 15:42 Labs: Lab Results 04/08/25 04/08/25 Range/Units 15:42 16:22 WBC 8.0 (4.8-10.8) X10*3/uL RBC 3.26 L (4.60-5.80) X10*6/uL Hgb 10.1 L (14.0-18.0) g/dl Hct 31.1 L (42.0-52.0) % MCV 95.4 (80.0-98.0) fL MCH 31.0 (27.0-33.0) pg MCHC 32.5 (31.0-36.0) g/dl RDW 12.7 (11.0-16.0) % Plt Count 245 (160-400) X10*3/uL MPV 10.1 (9.4-12.4) fL Immature Gran % (Auto) 0.5 H (0.0-0.4) % Neut % (Auto) 81.9 H (45-73) % Lymph % (Auto) 9.3 L (20-40) % [place] % (Auto) 6.8 (2-11) % Eos % (Auto) 0.9 (0-4) % Baso % (Auto) 0.6 (0-2) % Lymph # (Auto) 0.7 L (1.2-4.9) X10*3/uL [place] # (Auto) 0.5 (0.1-1.2) X10*3/uL Eos # (Auto) 0.1 (0.0-0.4) X10*3/uL Baso # (Auto) 0.1 (0.0-0.2) X10*3/uL Abs Immat Gran (auto) 0.04 H (0.00-0.03) X10*3/uL Absolute Neuts (auto) 6.5 (2.0-8.3) x10*3/uL Absolute Nucleated RBC 0.000 (0.0-0.012) X10*3/uL Nucleated RBC % (auto) 0.0 (0.0-0.2) /100WBC Sodium 139 (135-145) mmol/L Potassium 5.0 (3.3-5.1) mmol/L Chloride 110 H (96-108) mmol/L Carbon Dioxide 18 L (22-29) mmol/L Anion Gap 16 (12-20) BUN 50 H (9-16) mg/dL Creatinine 3.07 H (0.5-1.4) mg/dL Estim Creat Clear Calc 16.7 Estimated GFR 20 Random Glucose 111 (60-115) mg/dL Lactic Acid 0.9 (0.5-2.0) mmol/L Calcium 8.8 (8.4-10.2) mg/dL Total Bilirubin 0.4 (0.0-1.0) mg/dL AST 32 (5-37) U/L ALT 28 (0-40) U/L Alkaline Phosphatase 81 (39-117) U/L Total Protein 6.9 (6.5-8.0) g/dL Albumin 4.5 (3.5-5.0) g/dL Lipase 40 (8-78) U/L Urine Color Yellow Urine Appearance Clear Urine pH 6.0 (5.0-9.0) Ur Specific [place] 1.010 (1.005-1.025) Urine Protein 300 (3+) H (Neg-Trace) mg/dL Urine Glucose (UA) Negative (Negative) mg/dL Urine Ketones Negative (Negative) mg/dL Urine Blood Trace H (Negative) Urine Nitrite Negative (Negative) Ur Leukocyte Esterase Negative (Negative) Independent Historian Clinical information obtained from an independent historian. History obtained from or confirmed by: Spouse Chronic Conditions Chronic renal insufficiency Social Determinants Patient?s care significantly limited by Social Determinants of Health including: Problems related to primary support group Discharge Plan Discharge Clinical Impression: Acute urinary retention Patient Disposition: Home, Self-Care Instructions: Urinary Retention in Men (ED) Prescriptions: New tamsulosin [Flomax] 0.4 mg capsule 0.4 mg PO BEDTIME Qty: 14 0RF No Action metoprolol tartrate 100 mg tablet 100 mg PO BID Qty: 180 3RF atorvastatin 20 mg tablet 20 mg PO BEDTIME Qty: 90 3RF Eliquis 2.5 mg tablet 2.5 mg PO BID Qty: 180 0RF sodium polystyrene sulfonate 15 gram powder 30 g PO .COMPLEX Qty: 453.6 3RF Rx Instructions: 30 grams orally daily for 5 days followed by twice a week; calcitriol 0.25 mcg capsule 0.25 mcg PO 3XW Qty: 14 4RF levothyroxine 75 mcg tablet 75 mcg PO DAILY@0630 melatonin 3 mg Tablet 3 mg PO DAILY ketoconazole 2 % cream 2 appl topical DAILY multivitamin Tablet 1 tab PO DAILY nifedipine 30 mg tablet extended release 30 mg PO DAILY losartan 25 mg tablet 25 mg PO BID cholecalciferol (vitamin D3) 50 mcg (2,000 unit) capsule 50 mcg PO DAILY Qty: 30 11RF nifedipine 30 mg tablet extended release 60 mg PO DAILY Rx Instructions: 2 tabs AM 1 tab at night Referrals: Heath Zapata MD [Physician, Urology] - 04/10/25 Print Language: Burundian
[2025-04-08 16:43] LABS: Appearance Urine Clear; Glucose Urine UA Negative (Negative); PH 6.0 (5.0-9.0); Specific Gravity - Urine 1.010 (1.005-1.025); UMIC TRIGGER UA YES
--- OUTSIDE RECORDS SUMMARY | 2025-04-08 16:44 | XMS_ITS | Encounter Summary ---
Author Organization [facility] Address [address] [place] [phone] Phone Care Team Providers Care Accounts Payable Payroll Coordinator Name Role Phone Eamon Hahn MD Primary Care Provider [phone] Diamond Vick MD Unavailable [phone] Eamon Hahn MD Unavailable [phone] Reason for Visit * Reason Onset Date Comments Herpes Zoster 09/30/2022 Encounter Details Date Type Department Care Team (Late st Contact Info) Description 09/30/2022 Nurse Triage [facility] Internal Medicine [address], [place] [phone] Eamon Hahn MD [address] [place] [address] [email or web address] Herpes Zoster Social History Tobacco Use Types [...] either cetirizine or loratadine. * They are vurn-lha-sgfyioh (OTC) antihistamine medicines. You can buy them [...] acetaminophen, ibuprofen, or naproxen. * They are sbyp-gqs-zgfpldq (OTC) pain drugs. You can buy them [...] acetaminophen overdose can hurt the liver. * [employer], the company that makes Tylenol, has different dosage instructions for Tylenol in [place] and the [place]. In [place], the maximum recommended dose per day is 4,000 mg or twelve Regular-Strength (325 mg) pills. In the [place], the maximum dose per day is ten Regular-Strength (325mg) pills. * [employer], the company that makes Aleve, has different [...] Description 07/20/2025 11:00 AM EDT Office Visit [facility] Internal Medicine [address], [place] [phone] Eamon Hahn MD [address] [place], [place] [phone] [email or web address] 01/25/2026 10:40 AM EDT Office Visit [facility] Internal Medicine [address], [place] [phone] Yesenia Melendez PA-C [address] [place], [place] [phone] [email or web address] documented as of this encounter Visit Diagnoses Not on filedocumented in this encounter Additional Health Concerns Assessment Noted Time PHQ-2 Depression Total Score: 0 10/01/19 23 3:57 PM EDT documented as of this encounter Care Teams Accounts Payable Payroll Coordinator Relationship Specialty Start Date End Date Eamon Hahn MD [address] [place] [address] [email or web address] PCP - General Internal Medicine 03/19/17 Diamond Vick MD [address] [place] [phone] [email or web address] 01/12/20 Eamon Hahn MD [address] [place] [address] [email or web address] Insurance Assigned Provider 08/14/23 documented as of this encounter Additional Source Comments The information contained in this document represents components of the legal health record. It is not the complete legal health record.[facility]
--- OUTSIDE RECORDS SUMMARY | 2025-04-08 16:44 | XMS_ITS | Clinical Summary ---
Author Organization [facility] Address [address] [facility] [address] [place] [address] Phone Care Team Providers Care Market Development Trainer Name Role Phone Eamon Hahn MD Primary Care Provider [phone] Diamond Vick MD Unavailable [phone] Eamon Hahn MD Unavailable [phone] Allergies No known active allergies Medications ketoconazole 2 % cream PRN 5 7 Active metroNIDAZOLE (METROCREAM) 0.75 % cream PRN 5 7 Active therapeutic multivitamin tablet Take 1 tablet by mouth daily. Active Bifidobacterium infantis (ALIGN ORAL) Take 1 capsule by mouth daily. Active atorvastatin (LIPITOR) 20 MG tablet Take 20 mg by mouth nightly at bedtime. 3 Active cyanocobalamin, vitamin B-12, (VITAMIN B-12 ORAL)Indications :recommended by Dr. Vick Take 1,000 mcg by mouth 3 (three) times a week. Indications: recommended by Dr. Vick Active melatonin 3 mg Tab Take 5 mg by mouth as needed. Active apixaban (ELIQUIS) 2.5 mgIndications:Pa roxysmal atrial fibrillation,Oth er pulmonary embolism without acute cor pulmonale, unspecified chronicity Take 1 tablet (2.5 mg total) by mouth 2 (two) times a day. 180 tablet 3 4 Active levothyroxine (SYNTHROID, LEVOTHROID) 75 MCG tablet TAKE 1 TABLET BY MOUTH EVERY MORNING (NEW DOSE) 90 tablet 3 4 Active losartan (COZAAR) 25 MG tabletIndication s:Benign essential hypertension Take 1 tablet (25 mg total) by mouth 2 (two) times a day. 180 tablet 3 5 Active NIFEdipine (ADALAT CC) 30 MG 24 hr tabletIndication s:Benign essential hypertension 2 tablets in the morning and 1 tablet at night. 270 tablet 3 5 Active metoprolol tartrate (LOPRESSOR) 50 MG tabletIndication s:Essential hypertension TAKE 1 TABLET BY MOUTH TWICE A DAY 180 tablet 3 5 Active cholecalciferol (VITAMIN D3) 2,000 unit capsule Take 1 capsule by mouth every morning. 5 Active calcitriol (ROCALTROL) 0.25 MCG capsule Take 0.25 mcg by mouth 3 (three) times a week. 5 Active Active Problems Problem Noted Date Diagnosed Date Lymphoma 02/10/2024 Overview (02/10/2024): [place] [facility] [place] Diamond Vick- last OV 01/14/24 f/u 4m Normocytic normochromic anemia 12/29/2023 Overview (12/29/2023): Lab done [facility] 11/19/23 H/H 11.3/ and 33.5 Iron studies normal- see media scan dated 12/13/23 Atrial fibrillation 12/19/2020 Patrick's esophagus 03/19/2017 Essential hypertension 03/19/2017 Gastroesophageal reflux disease 03/19/2017 Hyponatremia 03/19/2017 Pure hypercholesterolemia 03/19/2017 Primary osteoarthritis of left knee 03/19/2017 Encounters Date Type Department Care Team Description 01/19/2025 Orders Only [facility] [address] [facility] [place] [address] Provider, MD Dinesh from Last 3 Months Immunizations Immunization Administration Dates Next Due COVID-19 (Pre) Moderna Vaccine, mRNA, PF 03/30/2025 COVID-19 (Pre-03/01) Pfizer Vaccine, mRNA, PF 06/12/2020,05/22/2020 Influenza High-Dose Quadriva lent Preservative Free IM 12/28/2019 Influenza High-Dose Trivalen t Preservative Free IM 03/30/2025,06/14/2024,03/06/2019 Influenza Quadrivalent Adjuv anted Preservative Free IM 01/07/2023,03/23/2022 Pneumococcal conjugate PCV13 01/12/2020 Pneumococcal polysaccharide PPSV23 12/27/2020 RSV Vaccine (monovalent, adjuvanted) 03/28/2024 Td (adult) 5 Lf Tetanus Toxo id, PF, Adsorbed 01/30/2014 Td, unspecified formulation 05/10/2002 Zoster live 03/22/2015 [...] Description 07/20/2025 11:00 AM EDT Office Visit [facility] [address] [place] [address] Eamon Hahn MD [address] [place] [address] 01/25/2026 10:40 AM EDT Office Visit [facility] [address] [place] [address] Yesenia Melendez PA-C [address] [place] [address] [email or web address] Health Maintenance Due Date Last Done Comments ZOSTER VACCINES (1 of 2) 05/17/2015 03/22/2015 Adult Td,Tdap Booster 01/31/2024 01/30/2014, 003 COVID-19 VACCINE ( season) 2025 03/30/2025, 03/28/2024, 02/16/2023, Additional history exists POTASSIUM LEVEL 06/16/2025 06/16/2024, 11/07, 08/06/2023, Additional history exists BLOOD PRESSURE 07/07/2025 01/05/2025 DEPRESSION SCREENING 01/04/2026 01/04/2025 CREATININE LEVEL 01/05/2026 01/05/2025, 11/2024, 03/23/2024, Additional history exists TSH LEVEL 01/05/2026 01/05/2025, 11/2024, 05/27/2023, Additional history exists PNEUMOCOCCAL VACCINES (50+ years) Completed 12/27/2020, 01/12/2020 RSV VACCINE Completed 03/28/2024 INFLUENZA VACCINE Completed 03/30/2025, , 01/07/2023, Additional history exists HEPATITIS A VACCINES Aged Out No long [...] OUTSIDE LAB Routine 01/18/2025 12:03 PM EDT THYROID STIMULATING HORMONE (TSH) Routine 06/16/2024 11:40 AM EST Pure hypercholesterolemia Essential hypertension COMPREHENSIVE METABOLIC PANEL (CMP) Routine 06/16/2024 11:40 AM EST Pure hypercholesterolemia Essential hypertension from Last 3 Months or Most Recently Relevant to Health Maintenance Results * Outside Lab (01/18/2025 12:03 PM EDT) us Historical Provider LAB BLOOD BKR ORDERABLES Final Result * (ABNORMAL) Comprehensive metabolic panel (06/16/2024 11:40 AM EST) SODIUM 136 133 - 146 mmol/L [facility] POTASSIUM 4.6 3.3 - 5.1 mmol/L [facility] CHLORIDE 103 96 - 108 mmol/L [facility] CO2 22 21 - 35 mmol/L [facility] BUN 34(H) 6 - 19 mg/dL [facility] CREATININE 2.40(H) 0.5 - 1.5 mg/dL [facility] GLUCOSE 104(H) 70 - 99 mg/dL [facility] ALBUMIN 4.0 3.9 - 4.8 g/dL [facility] TOTAL PROTEIN 7.2 6.5 - 8.0 g/dL [facility] CALCIUM 9.2 8.4 - 10.3 mg/dL [facility] ALKALINE PHOSPHATASE 105 39 - 117 U/L [facility] TOTAL BILIRUBIN 0.4 0.0 - 1.2 mg/dL [facility] AST 28 0 - 37 U/L [facility] ALT 22 0 - 40 U/L [facility] GLOBULIN 3.2 1 - 4.8 g/dL [facility] EGFR 26(L) >59 mL/min/1.7 3m2 [facility] Comment:Estimated glomerular filtration rate calculated using the CKD-EPI refit equation. ANION GAP 16 10 - 20 mmol/L [facility] Blood 06/16/2024 11:4 0 AM EST 06/16/2024 11:45 AM EST Eamon Hahn MD LAB BLOOD BKR ORDERABLES Karla l Result [address] [address] * TSH (06/16/2024 11:40 AM EST) TSH 1.75 0.27 - 4.20 uIU/mL [facility] Blood 06/16/2024 11:4 0 AM EST 06/16/2024 11:45 AM EST Eamon Hahn MD LAB BLOOD BKR ORDERABLES Karla l Result Performing Organization Address City/[facility]/ZIP Co de Phone Number [address] [address] from Last 3 Months or Most Recently Relevant to Health Maintenance Insurance MEDICARE PART A & B [address] [place], [place] [address] MEDICARE SUPPLEMENT MEDICARE PART A & B [employer] [facility] EXTENSION MEDICARE SUPPLEMENT [facility] MEDICARE SUPPLEMENT [facility] EXTENSION MEDICARE SUPPLEMENT MEDICARE PART A & B [facility] EXTENSION MEDICARE SUPPLEMENT MEDICARE PART A & B [facility] MEDICARE SUPPLEMENT [facility] EXTENSION MEDICARE SUPP[facility]MENT [facility] [place] [id number] MEDICARE PART A & B [facility] EXTENSION MEDICARE SUPPLEMENT [facility] A & [facility] Advance Directives For more information, please contact: [phone] (9AM - 5PM [facility], Wednesday-Wednesday) Documents on File Type Date Recorded Patient Blood Bank Coordinator Expl anation [facility] 07/08/2023 [facility] Healthcare Proxy 03/08/2018 Health Care Proxy Care Teams Market Development Trainer Relationship Specialty Start Date End Date Eamon Hahn MD [address] [place] [address] PCP - General Internal Medicine 03/19/17 Diamond Vick MD [address] [place] [id number] [email or web address] 01/12/20 Eamon Hahn MD [address] [place] [phone] [email or web address] Insurance Assigned Provider 08/14/23 Additional Source Comments The information contained in this document represents components of the legal health record. It is not the complete legal health record.[facility]
--- OUTSIDE RECORDS SUMMARY | 2025-04-08 16:44 | XMS_ITS | Clinical Summary ---
Author Organization [facility] Address [address] [place] [address] Care Team Providers Care Explosive Ordnance Specialist Name Role Phone Eamon Hahn MD Primary Care Provider [phone] Medications Medication Sig Dispensed Refills Start Date [...] age to complete this topic Care Teams Explosive Ordnance Specialist Relationship Specialty Start Date End Date Eamon Hahn MD [address] [place] [address] PCP - General Internal Medicine 04/01/21
--- OUTSIDE RECORDS SUMMARY | 2025-04-08 16:44 | XMS_ITS | Clinical Summary ---
Author Organization [facility] Address [address] [place] [address] Phone Care Team Providers Care Office Workforce Planner Name Role Phone Eamon Hahn MD Primary Care Provider [phone] Allergies No known active allergies Medications levothyroxine [...] topic Insurance Medicare Medicare Unicare Care Teams Office Workforce Planner Relationship Specialty Start Date End Date Eamon Hahn MD [address] [place] [address] PCP - General 05/20/20
== END 2025-04-08 18:01 | disposition home or self-care (01) ==
PROVIDERS: Physician Assistant; Emergency Provider Emergency Medicine Emergency Medical Services; PCP Internal Medicine
DX: R33.9 Retention of urine, unspecified (principal); R10.9 Unspecified abdominal pain; I12.9 Hypertensive chronic kidney disease with stage 1 through stage 4 chronic kidney disease, or unspecified chronic kidney disease; N18.30 Chronic kidney disease, stage 3 unspecified
CPT/HCPCS: 36415; 80053; 81001; 83605; 83690; 85025; 99283